=== PATIENT | male | born 1965 | race Caucasian/White ===

== ENCOUNTER 2017-12-27 16:57 | Inpatient (IN) | payer OTHER ==
[~2017-12-27] VITALS: Ht 172.7 cm; Wt 142.2 kg
[2017-12-27] VITALS (8 sets, daily range): BP systolic 117–139; BP diastolic 54–71; PULSE 88–97; RESP 22–30; TEMP 97.8–99.2; O2SAT 96–99
[2017-12-27] MEDS ORDERED: AMLO5TAB2 PO (18:52)
[2017-12-27] MEDS ORDERED: SPIR50TA PO (18:52)
[2017-12-27] MEDS ORDERED: JANT2.5T PO (18:52)
[2017-12-27] MEDS ORDERED: PANTOPRAZOLE SODIUM 40 MG VIAL IV PUSH ONE (19:15)
--- NOTE | 2017-12-27 19:21 | PD ---
HPI . Abdominal pain Chief Complaint: GI Complaint Time Seen by Provider: 19:05 Travel History International Travel<30 days: No Contact w/Intl Traveler<30days: No Traveled to known affect area: No History of Present Illness HPI pt is 52 year old male with liver disease from chronic etoh and he reports that in Jun 2017 he had a clot in the vein superior vein? possibly mesenteric vein , He is on coumadin and he is having pain and jaundice in sclera and facial , distended abdo and unknown if he has cirrhosis and possible ascites he reports vomiting blood clots today and asked his mother to take him to the hospital Nausea and vomit for 24 hrs , nothing taken to alleviate his Symptoms , pt was heavy drinker for years up until the episode in Jun 28 which lead to diagnosis of blood clot in Vein , Pt reports abstinence from etoh since jun .. Pt is awake alert and has nausea no diarrhea but he does have vomit, hematemesis . He has not seen another MD for this complaint . He is worried due to hematemesis and for this he decided to come to ER [facility] Past Medical History Blood Disorders: Yes (BLOOD CLOTS) Hypertension: Yes Medical other: Yes (LIVER DISEASE ) Tetanus Vaccination: > 5 Years Past Surgical History Thoracic Surgery: Yes (RIGHT KNEE SX ) Social History Alcohol Use: Yes (STOPPED JUN 2017) Tobacco Use: No Substance Use: No Allergies-Medications (Allergen,Severity, Reaction): Coded Allergies: No Known Allergies (Unverified , 12/27/17) Reported Meds & Prescriptions Reported Meds & Active Scripts Active Reported Jantoven (Warfarin) 2.5 Mg Tab 2.5 Mg PO DAILY Spironolactone 50 Mg Tab 50 Mg PO DAILY Amlodipine (Amlodipine Besylate) 5 Mg Tab 5 Mg PO DAILY Review of Systems Except as stated in HPI: all other systems reviewed are Neg Gastrointestinal: Positive: Nausea, Vomiting, Abdominal Pain, Hematemesis Musculoskeletal: Positive: Weakness Skin: Positive Change in Pigmentation (jaundice) Physical Exam Narrative GENERAL: pt is jaundice appearing and laying flat in bed he is Obese SKIN: Warm and dry. Yellow skin to face HEAD: Atraumatic. Normocephalic. EYES: Pupils equal and round. Positive for scleral icterus. No injection or drainage. ENT: No nasal bleeding or discharge. Mucous membranes pink and moist. NECK: Trachea midline. No JVD. CARDIOVASCULAR: Regular rate and rhythm. RESPIRATORY: No accessory muscle use. Clear to auscultation. Breath sounds equal bilaterally. GASTROINTESTINAL: Abdomen distended abdomen nontender obese versus possible ascites MUSCULOSKELETAL: Extremities without clubbing, cyanosis, or edema. No obvious deformities. NEUROLOGICAL: Awake and alert. No obvious cranial nerve deficits. Motor grossly within normal limits. Five out of 5 muscle strength in the arms and legs. Normal speech. PSYCHIATRIC: Appropriate mood and affect; insight and judgment normal. Data Data Last Documented VS Orders Orders Complete Blood Count With Diff (12/27/17:) Comprehensive Metabolic Panel (12/27/17:) Lipase (12/27/17:15) Ua Includes Microscopic (12/27/17:) Ammonia (12/27/17:) Type And Screen (12/27/17:) Alcohol (Ethanol) (12/27/17:) Prothrombin Time / Inr (Pt) (12/27/17:) Pantoprazole Inj (Protonix Inj) (12/27/17:) Ct Abd/Pel W Iv Contrast(Rout) (12/27/17 19:22) Fresh Frozen Plasma (Ffp) (12/27/17 20:31) Blood Product Administration (12/27/17 20:31) Sodium Chlor 0.9% 250 Ml Inj (Ns 250 Ml (12/27/17 20:45) Morphine Inj (Morphine Inj) (12/27/17 20:45) Red Blood Cells (Rbc) (12/27/17 20:44) Blood Product Administration (12/27/17 20:44) Sodium Chlor 0.9% 250 Ml Inj (Ns 250 Ml (12/27/17 20:45) Morphine Inj (Morphine Inj) (12/27/17 21:00) Octreotide Inj (Sandostatin Inj) (12/27/17 22:00) Pantoprazole Inj (Protonix Inj) (12/27/17 21:15) Sodium Chlor 0.9% 1000 Ml Inj (Ns 1000 M (12/27/17 21:15) Us Abdomen Gallbladder (12/27/17 ) Iohexol 350 Inj (Omnipaque 350 Inj) (12/27/17 21:12) Piperacil-Tazo 3.375 Gm Premix (Zosyn 3. (12/27/17 22:00) Thiamine Inj (Thiamine Inj) (12/28/17 09:00) Consult Gastroenterology (12/27/17 ) ^ Lab Follow Up (12/27/17 22:13) Phytonadione Inj (Vitamin K Inj) (12/27/17 22:15) Sodium Chlorid 0.9%... W/Octreotide Inj (12/27/17 22:14) Ceftriaxone Inj (Rocephin Inj) (12/27/17 23:00) Admit To Inpatient (12/27/17 ) Code Status (12/27/17 22:15) Vital Signs (Adult) ROSE.Q1H (12/27/17 22:15) Activity Bed Rest (12/27/17 22:15) Elevate Head Of Bed (12/27/17 22:15) Diet Npo (12/28/17 Breakfast) Sodium Chlor 0.9% 1000 Ml Inj (Ns 1000 M (12/27/17 22:15) Sodium Chloride 0.9% Flush (Ns Flush) (12/27/17 22:15) Sodium Chloride 0.9% Flush (Ns Flush) (12/28/17 09:00) Albuterol-Ipratropium Neb (Duoneb Neb) (12/27/17 22:15) Complete Blood Count With Diff (12/28/17 04:00) Comprehensive Metabolic Panel (12/28/17 04:00) Magnesium (Mg) (12/28/17 04:00) Director Risk / Telemetry ROSE.Q8H (12/27/17 22:15) Scd Bilateral/Knee High ROSE.BID (12/27/17 22:15) Wyatt Bilateral/Knee High ROSE.QSHIFT (12/27/17 10:30) ^ Initiate Protocol (12/27/17 22:15) Instruction (12/27/17 22:15) Nursing Information ([facility] Nursing Inform (12/27/17 22:15) Chlorhexidine 2% Cloth (Chlorhexidine 2% (12/28/17 04:00) Chlorhexidine 2% Cloth (Chlorhexidine 2% (12/27/17 22:15) Mrsa Pcr Surveillance (12/27/17 22:15) Inpatient Certification (12/27/17 ) Fresh Frozen Plasma (Ffp) (12/27/17 20:31) Admit Order (Ed Use Only) (12/27/17 22:22) Fresh Frozen Plasma (Ffp) (12/27/17 20:31) Labs Laboratory Tests Test 12/27/17 19:45 12/27/17 22:00 White Blood Count 13.6 TH/MM3 Red Blood Count 3.19 MIL/MM3 Hemoglobin 8.1 GM/DL Hematocrit 25.1 % Mean Corpuscular Volume 78.7 FL Mean Corpuscular Hemoglobin 25.3 PG Mean Corpuscular Hemoglobin Concent 32.2 % Red Cell Distribution Width 24.4 % Platelet Count 349 TH/MM3 Mean Platelet Volume 8.4 FL CBC Comment AUTO DIFF Differential Total Cells Counted 100 Neutrophils % (Manual) 62 % Band Neutrophils % 10 % Lymphocytes % 7 % Monocytes % 13 % Eosinophils % 3 % Basophils % 5 % Neutrophils # (Manual) 9.8 TH/MM3 Differential Comment FINAL DIFF MANUAL Platelet Estimate NORMAL Platelet Morphology Comment ENLARGED Target Cells 1+ Ovalocytes 1+ Prothrombin Time 156.1 SEC Prothromb Time International Ratio 15.7 RATIO Blood Urea Nitrogen 9 MG/DL Creatinine 0.91 MG/DL Random Glucose 101 MG/DL Total Protein 7.0 GM/DL Albumin 2.8 GM/DL Calcium Level 7.9 MG/DL Alkaline Phosphatase 171 U/L Aspartate Amino Transf (AST/SGOT) 439 U/L Alanine Aminotransferase (ALT/SGPT) 115 U/L Total Bilirubin 7.6 MG/DL Sodium Level 119 MEQ/L Potassium Level 3.5 MEQ/L Chloride Level 82 MEQ/L Carbon Dioxide Level 21.1 MEQ/L Anion Gap 16 MEQ/L Estimat Glomerular Filtration Rate 88 ML/MIN Ammonia 17 MCMOL/L Lipase 447 U/L Ethyl Alcohol Level 135 MG/DL Urine Color YELLOW Urine Turbidity CLEAR Urine pH 5.5 Urine Specific [place] 1.030 Urine Protein TRACE mg/dL Urine Glucose (UA) NEG mg/dL Urine Ketones NEG mg/dL Urine Occult Blood NEG Urine Nitrite NEG Urine Bilirubin SMALL Urine Urobilinogen LESS THAN 2.0 MG/DL Urine Leukocyte Esterase NEG Urine WBC 4 /hpf Urine Squamous Epithelial Cells <1 /hpf Urine Bacteria RARE /hpf MDM Medical Decision Making Medical Screen Exam Complete: Yes Emergency Medical Condition: Yes Medical Record Reviewed: Yes Differential Diagnosis Differential diagnosis includes alcohol induced cirrhosis versus liver failure with ascites versus acute cholecystitis versus obstructing gallstone versus ascending cholangitis versus other causes of bilirubin spilling as well as hyponatremia over anticoagulation due to Coumadin combined with liver failure other Narrative Course His INR is 15 need correction emergently FFP and his sodium is 119 needs correction emergently ...he is given 2 Units of FFP to correct his anticoagulation . he is given vitamin K 10 . he is given packed red blood cells for his severe anemia ...he is given sodium normal saline to replace his sodium and I review all his labs his CT for liver ascites and cirrhosis likely and liver failure on Coumadin , he is admitted to ICU Dr. Aviles will take care in the ICU Critical Care Narrative Critical care time is 45 minutes of medical critical care on this patient Physician Communication Physician Communication Dr Aviles ICU Diagnosis Primary Impression: Acute renal failure Qualified Codes: N17.9 - Acute kidney failure, unspecified Additional Impressions: Alcoholic cirrhosis Qualified Codes: K70.31 - Alcoholic cirrhosis of liver with ascites Early alcohol withdrawal Ascites Qualified Codes: K70.31 - Alcoholic cirrhosis of liver with ascites Hyponatremia Probable sepsis Abnormal INR Admitting Information Admitting Physician Requests: Admit Kalyan Law MD December 27, 2017 19:21
[2017-12-27 20:18] LABS: ALBUMIN 2.8 GM/DL (3.4-5.0); ALT (GPT) 115 U/L (12-78); AST (GOT) 439 U/L (15-37); BICARBONATE 21.1 MEQ/L (21.0-32.0); BLOOD UREA NITROGEN 9 MG/DL (7-18); CALCIUM 7.9 MG/DL (8.5-10.1); CHLORIDE 82 MEQ/L (98-107); CREATININE 0.91 MG/DL (0.60-1.30); GLOMERULAR FILTRATION RATE 88 ML/MIN (>89); GLUCOSE,RANDOM 101 MG/DL (74-106)
[2017-12-27 20:24] LABS: PROTHROMBIN TIME - PATIENT 156.1 SEC (9.8-11.6)
[2017-12-27 20:31] LABS: INTERNATIONAL NORMALIZED RATIO 15.7 RATIO
[2017-12-27 20:33] LABS: ALKALINE PHOSPHATASE 171 U/L (45-117); TOTAL BILIRUBIN ADULT 7.6 MG/DL (0.2-1.0)
[2017-12-27 20:36] LABS: SODIUM (NA) 119 MEQ/L (136-145)
[2017-12-27 20:41] LABS: HEMATOCRIT 25.1 % (39.0-51.0); HEMOGLOBIN 8.1 GM/DL (13.0-17.0); MEAN CELL VOLUME 78.7 FL (80.0-100.0); MEAN CORPUSCULAR HEMOGLOBIN 25.3 PG (27.0-34.0); MEAN CORPUSCULAR HGB CONC 32.2 % (32.0-36.0); MEAN PLATELET VOLUME 8.4 FL (7.0-11.0); PLATELET COUNT 349 TH/MM3 (150-450); RED BLOOD COUNT 3.19 MIL/MM3 (4.50-5.90); RED CELL DISTRIBUTION WIDTH 24.4 % (11.6-17.2); WHITE BLOOD COUNT 13.6 TH/MM3 (4.0-11.0)
[2017-12-27] MEDS ORDERED: MORPHINE SULFATE 2 MG/ML SYRINGE IV PUSH ONE (20:45)
[2017-12-27] MEDS ORDERED: SODIUM CHLOR 0.9% 250 ML INJ 250 ML IV ONE ×2 (20:45)
[2017-12-27] MEDS ORDERED: MORPHINE SULFATE 4 MG/ML INJ IV PUSH ONE (21:00)
[2017-12-27] MEDS ORDERED: IOHEXOL 350 MG/ML 10 ML VIAL (for RAD DIAG) IVCONTRAST ONE (21:12)
[2017-12-27] MEDS: SODIUM CHLOR 0.9% 1000 ML INJ 1,000 ML IV SCH (21:15)
[2017-12-27] MEDS ORDERED: OCTREOTIDE INJ 50 MCG/ML AMP IV PUSH SCH (22:00)
[2017-12-27] MEDS ORDERED: PIPERACIL-TAZO 3.375 GM PREMIX 50 ML IV ONE (22:00)
[2017-12-27 22:02] LABS: BANDS 10 % (0-6); BASOPHILS 5 % (0-2); LYMPHOCYTES 7 % (9-44); MONOCYTES 13 % (0-8); NEUTROPHIL # MANUAL DIFF 9.8 TH/MM3 (1.8-7.7); POLYS (SEG NEUTROPHILS) 62 % (16-70)
[2017-12-27 22:03] LABS: OVALOCYTES 1+ (NORMAL); TARGET CELLS 1+ (NORMAL)
--- NOTE | 2017-12-27 22:07 | RADRPT ---
EXAM DATE/TIME: 12/27/2017 21:00 [facility] COMPARISON: No previous studies available for comparison. INDICATIONS : Abdominal pain. IV CONTRAST: 100 cc Omnipaque 350 (iohexol) IV ORAL CONTRAST: No oral contrast ingested. RADIATION DOSE: 30.88 CTDIvol (mGy) ; Patient body habitus MEDICAL HISTORY : Hypertension. Liver disease. SURGICAL HISTORY : None. ENCOUNTER: Initial ACUITY: 1 day PAIN SCALE: 5/10 LOCATION: abdomen TECHNIQUE: Volumetric scanning of the abdomen and pelvis was performed. Using automated exposure control and ad justment of the mA and/or kV according to patient size, radiation dose was kept as low as reasonably achievable to obtain optimal diagnostic quality images. DICOM format image data is available electro nically for review and comparison. FINDINGS: LOWER LUNGS: There is a mild right pleural effusion. There is some accompanying atelectasis or consolidation at th e right lung base. LIVER: The liver is diffusely abnormal with decrease density and heterogeneity. There is hypertrophy of the left lobe and caudate. Calcified gallstones are present. There is a moderate amount of ascites seen t hroughout the peritoneal cavity. SPLEEN: The spleen is diffusely enlarged measuring 15 cm in length. No focal splenic lesion is seen. PANCREAS: Within normal limits. KIDNEYS: Normal in size and shape. There is no mass, stone or hydronephrosis. ADRENAL GLANDS: Within normal limits. VASCULAR: There is no aortic aneurysm. BOWEL/MESENTERY: The stomach, small bowel, and colon demonstrate no acute abnormality. There is no free intraperitone al air or fluid. ABDOMINAL WALL: Within normal limits. RETROPERITONEUM: There is no lymphadenopathy. BLADDER: No wall thickening or mass. REPRODUCTIVE: Within normal limits. INGUINAL: There is no lymphadenopathy or hernia. MUSCULOSKELETAL: Within normal limits for patient age. CONCLUSION: 1. Diffusely abnormal liver likely secondary to hepatic steatosis and possible changes of cirrhosis. 2. Splenomegaly. This could be secondary to portal hypertension. 3. Moderate ascites. 4. Calcified gallstone. Stefan Grier MD on December 27, 2017 at 22:02 Board Certified Radiologist. This report was verified electronically.
[2017-12-27] MEDS: PANTOPRAZOLE INJ 80 MG in SODIUM CHLORIDE 0.9% INJ 100 ML IV SCH (22:13)
--- NOTE | 2017-12-27 22:13 | RADRPT ---
EXAM DATE/TIME: 12/27/2017 21:16 [facility] COMPARISON: CT ABDOMEN & PELVIS W CONTRAST, December 27, 2017, 21:00. INDICATIONS : Right upper quadrant pain. MEDICAL HISTORY : Hypertension. Cirrhosis. Blood clots. SURGICAL HISTORY : Right knee surgery. ENCOUNTER: Initial ACUITY: 4-6 months PAIN SCORE: 7/10 LOCATION: Right upper quadrant MEASUREMENTS: LIVER: 20.3 cm length COMMON DUCT: Non-visualized RIGHT KIDNEY: 11.6 x 5.4 x 6.6 cm FINDINGS: LIVER: The liver is enlarged and heterogeneous and echogenic. There is ascites seen. COMMON DUCT: No intraluminal mass or stone visualized. GALLBLADDER: The gallbladder wall is thickened. Gallstones are not seen on the ultrasound. However, calcified gall stones are clearly present on the CT examination. PANCREAS: The pancreas is obscured by bowel gas. RIGHT KIDNEY: No evidence of hydronephrosis, stone, or mass. CONCLUSION: 1. Diffusely abnormal liver secondary to cirrhosis and hepatic steatosis. 2. Gallbladder wall thickening. This is nonspecific. This can be seen with hepatic disease. It also c an be seen with cholecystitis in the correct clinical situation. Gallstones were not demonstrated on the ultrasound examination but are clearly present on the CT examination. Stefan Grier MD on December 27, 2017 at 22:08 Board Certified Radiologist. This report was verified electronically.
[2017-12-27] MEDS ORDERED: CHLORHEXIDINE GLUCONATE 2 % 1 PACK (2 CLOTHS) TOP PRN (22:15)
[2017-12-27] MEDS ORDERED: RESP: ALBUTEROL 2.5 MG/IPRATROPIUM 0.5 MG NEB (PRN) INH (22:15)
[2017-12-27] MEDS ORDERED: NURSING INFORMATION XX SCH (22:15)
[2017-12-27] MEDS ORDERED: PHYTONADIONE INJ 10 MG in SODIUM CHLORIDE 0.9% INJ 50 ML IV ONE (22:15)
[2017-12-27 22:28] LABS: BACTERIA, URINE RARE /hpf; BILIRUBIN, URINE SMALL (NEG); BLOOD, URINE NEG (NEG); GLUCOSE,URINE NEG (NEG); KETONE, URINE NEG (NEG); NITRITE,URINE NEG (NEG); PH, URINE 5.5 (5.0-8.5); SQUAMOUS EPITHELIAL CELL URINE <1 /hpf (0-5); URINE COLOR YELLOW (YELLW/STRAW); URINE LEUKOCYTE ESTERASE NEG (NEG)
[2017-12-27] MEDS ORDERED: FLUMAZENIL 0.5 MG/5 ML VIAL IV PUSH PRN (23:30)
[2017-12-27] MEDS ORDERED: LORazepam 1 MG TAB PO PRN (23:30)
[2017-12-27] MEDS ORDERED: LORazepam 2 MG TAB PO PRN (23:30)
[2017-12-27] MEDS ORDERED: LORazepam 2 MG/ML VIAL IV PUSH PRN ×3 (23:30)
--- NOTE | 2017-12-27 23:32 | HHI.HP ---
[facility] Service Critical Care Medicine Primary Care Physician No Primary Care Physician Admission Diagnosis liver failure overanticoagulation , hyponatremia Diagnosis: (1) Upper GI bleed Diagnosis: Principal (2) Anemia requiring transfusions Diagnosis: Principal (3) Coagulopathy Diagnosis: Principal (4) Probable sepsis Diagnosis: Principal (5) Hyponatremia Diagnosis: Principal (6) Ascites Diagnosis: Principal (7) Possible SBP Diagnosis: Principal (8) Hyperbilirubinemia Diagnosis: Principal (9) Transaminitis Diagnosis: Principal (10) Alcohol intoxication Diagnosis: Principal (11) Early alcohol withdrawal Diagnosis: Principal (12) Alcoholic cirrhosis Diagnosis: Secondary (13) Splenomegaly Diagnosis: Secondary Chief Complaint: Increasing jaundice Upper GI bleed Travel History International Travel<30 Days: No Contact w/Intl Traveler <30 Da: No Traveled to Known Affected Are: No Sepsis Criteria SIRS Criteria (2 or more): Heart rate over 90, WBC > 87258, < 4000 or > 10% bands Sepsis Criteria (SIRS+source): Infect source susp/known Criteria Outcome: Meets sepsis criteria History of Present Illness Patient is a 52-year-old male with history of alcohol dependence, on chronic Coumadin for "abdominal vein thrombosis", history of hypertension who presented to the emergency department with complaints of increasing jaundice, increasing abdominal girth and vomiting jade blood multiple times over the last 2 days. Patient admits to being a heavy drinker he drinks about 1.75 L bottle hard liquor every 2 days. ER workup showed patient had a hemoglobin of 8.1, INR was 15.7. PTT 156.1, white count of 13.6 with 10% bands. Also sodium was noted to be 119, AST 439 ALT 115 and bilirubin of 7.6. A stat CT abdomen pelvis showed moderate ascites, probable cirrhosis and hepatic steatosis, splenomegaly, and gallstones. Patient had been ordered to receive 2 units of PRBC, and total 4 units of FFP. INR, Hb will be rechecked after this and additional FFP will be given accordingly. 10 mg vitamin K also ordered. Unfortunately hospital is out of [facility]. I evaluated the patient in the emergency department. He initially had an alcohol level of 135. At the time of my exam he is in moderate distress appears to be slightly tremulous. I have initiated CIWA protocol. I will also start its Rocephin for SBP prophylaxis. Patient had been started on IV Protonix infusion and octreotide which will be continued. Patient clinically also appears to have at least moderate ascites but I am unable to perform paracentesis due to elevated INR. Review of Systems ROS Limitations: Other (as per HPI) Past Family Social History Allergies: Coded Allergies: No Known Allergies (Unverified , 12/27/17) Past Medical History Alcohol dependence Probable liver cirrhosis Chronic Coumadin for "abdominal vein thrombosis" Hypertension Past Surgical History History of right knee surgery Reported Medications Jantoven (Warfarin) 2.5 Mg Tab 2.5 Mg PO DAILY Spironolactone 50 Mg Tab 50 Mg PO DAILY Amlodipine (Amlodipine Besylate) 5 Mg Tab 5 Mg PO DAILY Active Ordered Medications Reviewed. Family History Not contributing to this admission Social History He admits to drinking about 1.75 L hard liquor every 2 days Denies smoking or any other drug use Physical Exam Vital Signs Vital Signs Date Time Temp Pulse Resp B/P (MAP) Pulse Ox O2 Delivery O2 Flow Rate FiO2 12/27/17 22:52 99.0 91 26 121/57 96 12/27/17 18:44 25 12/27/17 17:08 97.8 93 22 117/60 (79) 97 Physical Exam GENERAL: 52[facility] slightly tremulous moderate distress SKIN: Warm and dry. Jaundiced HEAD: Atraumatic. Normocephalic. EYES: Pupils equal and round. Positive for scleral icterus. ENT: No nasal bleeding or discharge. Mucous membranes dry NECK: Trachea midline. No JVD. CARDIOVASCULAR: Regular rate and rhythm. RESPIRATORY: Clear to auscultation. Breath sounds equal bilaterally. GASTROINTESTINAL: Abdomen distended abdomen nontender obese. Fluid thrill present MUSCULOSKELETAL: Extremities without clubbing, cyanosis. 1+ pitting edema NEUROLOGICAL: Awake and alert. No obvious cranial nerve deficits. Motor grossly within normal limits. Slightly tremulous Laboratory Laboratory Tests Test 12/27/17 19:45 12/27/17 22:00 White Blood Count 13.6 Red Blood Count 3.19 Hemoglobin 8.1 Hematocrit 25.1 Mean Corpuscular Volume 78.7 Mean Corpuscular Hemoglobin 25.3 Mean Corpuscular Hemoglobin Concent 32.2 Red Cell Distribution Width 24.4 Platelet Count 349 Mean Platelet Volume 8.4 CBC Comment AUTO DIFF Differential Total Cells Counted 100 Neutrophils % (Manual) 62 Band Neutrophils % 10 Lymphocytes % 7 Monocytes % 13 Eosinophils % 3 Basophils % 5 Neutrophils # (Manual) 9.8 Differential Comment FINAL DIFF MANUAL Platelet Estimate NORMAL Platelet Morphology Comment ENLARGED Target Cells 1+ Ovalocytes 1+ Prothrombin Time 156.1 Prothromb Time International Ratio 15.7 Blood Urea Nitrogen 9 Creatinine 0.91 Random Glucose 101 Total Protein 7.0 Albumin 2.8 Calcium Level 7.9 Alkaline Phosphatase 171 Aspartate Amino Transf (AST/SGOT) 439 Alanine Aminotransferase (ALT/SGPT) 115 Total Bilirubin 7.6 Sodium Level 119 Potassium Level 3.5 Chloride Level 82 Carbon Dioxide Level 21.1 Anion Gap 16 Estimat Glomerular Filtration Rate 88 Ammonia 17 Lipase 447 Ethyl Alcohol Level 135 Urine Color YELLOW Urine Turbidity CLEAR Urine pH 5.5 Urine Specific [place] 1.030 Urine Protein TRACE Urine Glucose (UA) NEG Urine Ketones NEG Urine Occult Blood NEG Urine Nitrite NEG Urine Bilirubin SMALL Urine Urobilinogen LESS THAN 2.0 Urine Leukocyte Esterase NEG Urine WBC 4 Urine Squamous Epithelial Cells <1 Urine Bacteria RARE Result Diagram: 12/27/17194412/27/171944 Imaging CT abdomen pelvis shows hepatic steatosis, probable liver cirrhosis, splenomegaly, moderate ascites and gallstones Septic Shock Reassessment Septic shock perfusion: reassessment completed Caprini VTE Risk Assessment Caprini VTE Risk Assessment: Mod/High Risk (score >= 2) VTE Pharm Contraindication: Coagulopathy,INR elevated Caprini Risk Assessment Model Point Value = 1 Point Value = 2 Point Value = 3 Point Value = 5 Age 41-60 Minor surgery BMI > 25 kg/m2 Swollen legs Varicose veins or History of unexplained or recurrent spontaneous Oral contraceptives or hormone replacement Sepsis (< 1 month) Serious lung disease, including pneumonia (< 1 month) Abnormal pulmonary function Acute myocardial infarction Congestive heart failure (< 1 month) History of inflammatory bowel disease Medical patient at bed rest Age 61-74 Arthroscopic surgery Major open surgery (> 45 min) Laparoscopic surgery (> 45 min) Malignancy Confined to bed (> 72 hours) Immobilizing plaster cast Central venous access Age >= 75 History of VTE Family history of VTE Factor V Leiden Prothrombin [id number] Lupus anticoagulant Anticardiolipin antibodies Elevated serum homocysteine Heparin-induced thrombocytopenia Other congenital or acquired thrombophilia Stroke (< 1 month) Elective arthroplasty Hip, pelvis, or leg fracture Acute spinal cord injury (< 1 month) Prophylaxis Regimen Total Risk Factor Score Risk Level Prophylaxis Regimen 0-1 Low Early ambulation 2 Moderate Order ONE of the following: *Sequential Compression Device (SCD) *Heparin 5000 units SQ BID 3-4 Higher Order ONE of the following medications: *Heparin 5000 units SQ TID *Enoxaparin/Lovenox 40 mg SQ daily (WT < 150 kg, CrCl > 30 mL/min) *Enoxaparin/Lovenox 30 mg SQ daily (WT < 150 kg, CrCl > 10-29 mL/min) *Enoxaparin/Lovenox 30 mg SQ BID (WT < 150 kg, CrCl > 30 mL/min) AND/OR *Sequential Compression Device (SCD) 5 or more Highest Order ONE of the following medications: *Heparin 5000 units SQ TID (Preferred with Epidurals) *Enoxaparin/Lovenox 40 mg SQ daily (WT < 150 kg, CrCl > 30 mL/min) *Enoxaparin/Lovenox 30 mg SQ daily (WT < 150 kg, CrCl > 10-29 mL/min) *Enoxaparin/Lovenox 30 mg SQ BID (WT < 150 kg, CrCl > 30 mL/min) AND *Sequential Compression Device (SCD) Assessment and Plan Assessment and Plan NEURO: Early alcohol withdrawal Alcohol dependence -Initiate CIWA protocol -Supplement thiamine, MVI RESP: -Nasal cannula oxygen to keep O2 sat >90% -DuoNeb every 6 hours as needed -Aggressive pulmonary toilet CV: History of hypertension -Normal saline IV fluids at 84 ml per hour -Hold Norvasc due to GI bleed GI: Upper GI bleed Ascites Liver cirrhosis -Continue Protonix infusion, octreotide infusion -Rocephin for SBP prophylaxis -Keep n.p.o., GI consult -Plan for paracentesis after the INR is corrected /Endo: Hypochloremic hyponatremia -Monitor renal function closely. Careful hydration with normal saline at 84 mL/ h -Sodium every 6 hours to avoid overcorrection. -Normal saline 1 L bolus ID: Probable sepsis Possible SBP -Start Rocephin for SBP prophylaxis -Send blood cultures, ascites fluid studies once INR is corrected HEME: Anemia requiring transfusion Severe coagulopathy -Transfuse 2 units PRBC, 4 units of FFP -Serially monitor INR, vitamin K 10 mg given IV -Hospital is out of [facility] at this time -Monitor CBC, CMP, coags PROPH: -Bilateral lower extremity SCDs. IV Protonix infusion. Chemical DVT prophylaxis is contraindicated at this time LINES: -Utilize peripheral IVs, central line if needed CC time 62 min Code Status Full Discussed Condition With Dr. Law Problem Qualifiers (1) Ascites: Qualified Codes: K70.31 - Alcoholic cirrhosis of liver with ascites Chelsie Aviles MD December 27, 2017 23:32
[2017-12-28] VITALS (23 sets, daily range): BP systolic 129–171; BP diastolic 65–76; PULSE 84–107; RESP 15–32; TEMP 98.4–100.8; O2SAT 93–100
[2017-12-28] MEDS ORDERED: SODIUM CHLOR 0.9% 1000 ML INJ 1,000 ML IV ONE
[2017-12-28] MEDS: cefTRIAXone INJ 1,000 MG in SODIUM CHLORIDE 0.9% INJ 100 ML IV SCH ×2 (00:43→21:49)
[2017-12-28] MEDS: SODIUM CHLOR 0.9% 1000 ML INJ 1,000 ML IV SCH ×4 (00:46→12:06)
[2017-12-28] MEDS: OCTREOTIDE INJ 500 MCG in SODIUM CHLORID 0.9% 500 ML INJ 499.5 ML IV SCH ×2 (00:46→17:07)
[2017-12-28] MEDS ORDERED: MORPHINE SULFATE 2 MG/ML SYRINGE IV PRN (01:00)
[2017-12-28] MEDS: MORPHINE SULFATE 4 MG/ML INJ IV PRN ×3 (01:28→08:06)
[2017-12-28] MEDS: CHLORHEXIDINE GLUCONATE 2 % 1 PACK (2 CLOTHS) TOP SCH (04:20)
[2017-12-28] MEDS: PANTOPRAZOLE INJ 80 MG in SODIUM CHLORIDE 0.9% INJ 100 ML IV SCH ×2 (05:28→16:00)
[2017-12-28 07:23] LABS: INTERNATIONAL NORMALIZED RATIO 2.2 RATIO
[2017-12-28 07:25] LABS: AUTOMATED NEUTROPHIL # 6.6 TH/MM3 (1.8-7.7); BASOPHIL # 0.1 TH/MM3 (0-0.2); EOSINOPHIL # 0.2 TH/MM3 (0-0.4); EOSINOPHIL % 1.7 % (0.0-4.0); HEMATOCRIT 25.9 % (39.0-51.0); HEMOGLOBIN 8.6 GM/DL (13.0-17.0); LYMPH % 28.9 % (9.0-44.0); LYMPHOCYTE # 3.2 TH/MM3 (1.0-4.8); MEAN CELL VOLUME 80.2 FL (80.0-100.0); MEAN CORPUSCULAR HEMOGLOBIN 26.6 PG (27.0-34.0); MEAN CORPUSCULAR HGB CONC 33.1 % (32.0-36.0); MEAN PLATELET VOLUME 8.6 FL (7.0-11.0); NEUT % 59.4 % (16.0-70.0); PLATELET COUNT 266 TH/MM3 (150-450); RED BLOOD COUNT 3.22 MIL/MM3 (4.50-5.90); RED CELL DISTRIBUTION WIDTH 22.9 % (11.6-17.2)
[2017-12-28 07:30] LABS: PROTHROMBIN TIME - PATIENT 22.2 SEC (9.8-11.6)
[2017-12-28 07:44] LABS: ALKALINE PHOSPHATASE 144 U/L (45-117); TOTAL BILIRUBIN ADULT 8.4 MG/DL (0.2-1.0); TOTAL PROTEIN 6.8 GM/DL (6.4-8.2)
[2017-12-28 07:51] LABS: ALBUMIN 2.7 GM/DL (3.4-5.0); ALT (GPT) 91 U/L (12-78); AST (GOT) 324 U/L (15-37); BICARBONATE 23.8 MEQ/L (21.0-32.0); BLOOD UREA NITROGEN 10 MG/DL (7-18); CALCIUM 7.6 MG/DL (8.5-10.1); CHLORIDE 87 MEQ/L (98-107); CREATININE 0.94 MG/DL (0.60-1.30); GLOMERULAR FILTRATION RATE 85 ML/MIN (>89); GLUCOSE,RANDOM 88 MG/DL (74-106); MAGNESIUM 2.3 MG/DL (1.5-2.5); SODIUM (NA) 125 MEQ/L (136-145)
--- NOTE | 2017-12-28 08:02 | HHI.CCPN ---
Subjective Remarks/Hospital Course Patient is a 52-year-old male with history of alcohol dependence, on chronic Coumadin for "abdominal vein thrombosis", history of hypertension who presented to the emergency department with complaints of increasing jaundice, increasing abdominal girth and vomiting jade blood multiple times over the last 2 days. Patient admits to being a heavy drinker he drinks about 1.75 L bottle hard liquor every 2 days. ER workup showed patient had a hemoglobin of 8.1, INR was 15.7. PTT 156.1, white count of 13.6 with 10% bands. Also sodium was noted to be 119, AST 439 ALT 115 and bilirubin of 7.6. A stat CT abdomen pelvis showed moderate ascites, probable cirrhosis and hepatic steatosis, splenomegaly, and gallstones. Patient had been ordered to receive 2 units of PRBC, and total 4 units of FFP. INR, Hb will be rechecked after this and additional FFP will be given accordingly. 10 mg vitamin K also ordered. Unfortunately hospital is out of [facility]. I evaluated the patient in the emergency department. He initially had an alcohol level of 135. At the time of my exam he is in moderate distress appears to be slightly tremulous. I have initiated CIWA protocol. I will also start its Rocephin for SBP prophylaxis. Patient had been started on IV Protonix infusion and octreotide which will be continued. Patient clinically also appears to have at least moderate ascites but I am unable to perform paracentesis due to elevated INR. SUBJECTIVE: 12/28: Currently resting in bed complaining of abdominal pain. Short of breath and tachypnea. Complaining of nausea currently. Remains on nasal cannula. Patient does not desire his mother's to have knowledge about his alcohol use. Objective Vital Signs Date Time Temp Pulse Resp B/P (MAP) Pulse Ox O2 Delivery O2 Flow Rate FiO2 12/28/17 07:40 95 Nasal Cannula 2.00 12/28/17 06:00 98 12/28/17 04:00 98.4 30 169/74 (105) Intake and Output 12/28/17 12/28/17 12/29/17 08:00 16:00 00:00 Intake Total 1837 ml Balance 1837 ml Result Diagram: 12/28/17 0615 12/28/17 0615 Other Results Microbiology Date/Time Source Procedure Growth Status 12/28/17 06:15 Blood Peripheral Aerobic Blood Culture Pending Received 12/28/17 06:15 Blood Peripheral Anaerobic Blood Culture Pending Received Imaging Last Impressions Abdomen/Pelvis CT 12/27/17 1922 Signed Impressions: Service Date/Time: Wednesday, December 27, 2017 21:00 - CONCLUSION: 1. Diffusely abnormal liver likely secondary to hepatic steatosis and possible changes of cirrhosis. 2. Splenomegaly. This could be secondary to portal hypertension. 3. Moderate ascites. 4. Calcified gallstone. Stefan Grier MD Gall Bladder Ultrasound 12/27/17 0000 Signed Impressions: Service Date/Time: Wednesday, December 27, 2017 21:16 - CONCLUSION: 1. Diffusely abnormal liver secondary to cirrhosis and hepatic steatosis. 2. Gallbladder wall thickening. This is nonspecific. This can be seen with hepatic disease. It also can be seen with cholecystitis in the correct clinical situation. Gallstones were not demonstrated on the ultrasound examination but are clearly present on the CT examination. Stefan Grier MD Objective Remarks GENERAL: 52-year-old male lying in bed in mild respiratory distress SKIN: Warm and dry. Jaundiced HEAD: Atraumatic. Normocephalic. EYES: Pupils equal and round about 3 mm bilaterally to 2 mm. Positive for scleral icterus. ENT: No nasal bleeding or discharge. Mucous membranes dry and pink. Oropharynx without erythema or exudate NECK: Trachea midline. No JVD. CARDIOVASCULAR: Regular rate and rhythm. S1, S2. No S4. Without murmur RESPIRATORY: Clear to auscultation. Breath sounds equal bilaterally. GASTROINTESTINAL: Abdomen distended abdomen nontender obese. Positive succussion splash MUSCULOSKELETAL: Extremities -bilateral lower extreme 1+ pitting edema NEUROLOGICAL: Awake and alert. No obvious cranial nerve deficits. Motor grossly within normal limits. Slightly tremulous Urinary Catheter: No Assessment to: Continue Vascular Central Line Catheter: No Assessment to: Continue A/P Assessment and Plan NEURO/PSYCH: Early alcohol withdrawal Alcohol dependence -Initiate CIWA protocol with Lorazepam -Supplement thiamine, folic acid and MVI with vitamin bag 3 days and switch to IV thiamine on 12/31 Morphine sulfate 2-4 mg IV every 3 hours as needed pain Alcohol cessation encouraged RESP: -Nasal cannula oxygen to keep O2 sat >92% -Incentive spirometry while awake Albuterol/ipratropium aerosols every 6 hours while awake with albuterol aerosols every 2 hours as needed dyspnea -Aggressive pulmonary toilet CV: History of hypertension -Normal saline IV fluids at 125 ml per hour. Decreased to 75 cc an hour while on pantoprazole and octreotide drips -Hold amlodipine 5 mg due to GI bleed and Spironolactone 50 mg p.o. daily As needed labetalol, Nitropaste and nicardipine drip to maintain systolic blood pressure less than 170 GI: Upper GI bleed Ascites/abdominal Liver cirrhosis/hepatic steatosis Cholelithiasis Elevated transaminases Elevated lipase -Continue pantoprazole infusion at 8 mg an hour, octreotide infusion at 25 mch/ hr -Ceftriaxone for SBP prophylaxis/urinary tract -Keep n.p.o., GI consult -Plan for paracentesis per Dr. Chelsie Aviles after the INR is corrected CT abdomen/pelvis revealed no sequelae of pancreatitis. FEN//Endo: Hypochloremic hyponatremia -Monitor renal function closely. Careful hydration with normal saline at 75 mL/ h Check osm serum/urine, TSH, uric acid and cortisol level -Sodium every 6 hours to avoid overcorrection. -Normal saline 1 L bolus in ED by overnight advertising display rotator. 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 Recheck hemoglobin at 8 PM MSK: Elevated BMI greater than 30 Weight loss encouraged PT evaluate and treat PROPH: -Bilateral lower extremity SCDs. IV pantoprazole infusion. Chemical DVT prophylaxis is contraindicated at this time LINES: -Utilize peripheral IVs, central line if needed Level 2 follow-up Constantine Alvarado MD December 28, 2017 08:02
[2017-12-28] MEDS: SODIUM CHLORIDE 0.9% FLUSH 10 ML FLUSH IV FLUSH SCH ×2 (08:06→19:20)
[2017-12-28] MEDS: MULTIVITAMIN INJ 10 ML, THIAMINE INJ 100 MG, FOLIC ACID INJ 1 MG in SODIUM CHLORID 0.9%... IV SCH (08:07)
[2017-12-28] MEDS ORDERED: PROCHLORPERAZINE INJ 10 MG/2 ML VIAL IV PUSH PRN (08:15)
[2017-12-28] MEDS ORDERED: niCARdipine INJ 25 MG in SODIUM CHLOR 0.9% 250 ML INJ 250 ML IV PRN (08:15)
[2017-12-28] MEDS ORDERED: NITROGLYCERIN 2% OINT 1 GM PACKET TOPICAL PRN (08:15)
[2017-12-28] MEDS ORDERED: MORPHINE SULFATE 4 MG/ML INJ IV PUSH PRN (08:15)
[2017-12-28] MEDS ORDERED: RESP: ALBUTEROL 2.5 MG/3 ML NEB (PRN) NEB (08:15)
[2017-12-28] MEDS ORDERED: LABETALOL HCL 100 MG/20 ML VIAL IV PUSH PRN (08:15)
[2017-12-28] MEDS ORDERED: THIAMINE INJ 100 MG in SODIUM CHLORIDE 0.9% INJ 100 ML IV SCH (09:00)
--- NOTE | 2017-12-28 09:29 | PD.CONS ---
HPI History of Present Illness This is a 52 year old M with PMH significant for HTN, SMV thrombosis in June on Coumadin, ETOH abuse and likely cirrhosis. History is limited due to patient dry heaving during my exam. Pt presented to the ER yesterday with complaints of abdominal swelling, jaundice, and nausea and vomiting. Pt reports he has noticed the abdominal swelling for the past month. The jaundice has been more recent over the past 3-4 days. States the nausea and vomiting has been going on for the last two days, reports hematemesis. Pt was seen by our service during his last hospitalization at [facility] in June, states he stopped drinking alcohol for two weeks after he was discharged and is back to drinking heavily again. Goes through a 1.75 liter of vodka every 2 to three days. Pt states he has not followed up with a GI doctor, he currently doesn't have insurance and has been seen and the [facility], he was supposed to be seeing a GI doctor at that clinic this Saturday. Pt denies previous EGD or colonoscopy. (Sandra Fernandes) PFSH Past Medical History ETOH abuse Cirrhosis SMV thrombosis Past Surgical History R knee (Sandra Fernandes) Coded Allergies: No Known Allergies (Unverified , 12/27/17) Social History Drinks ETOH daily- 1.75 liter of vodka every 2-3 days (Sandra Fernandes) Review of Systems Gastrointestinal: COMPLAINS OF: Abdominal pain, Nausea, Vomiting, Swelling of Abdomen, Hematemesis, DENIES: Black stools, Bloody stools, Constipation, Diarrhea, Difficulty Swallowing, Odynophagia, Heartburn (Sandra Fernandes) GI Exam Vitals I&O Vital Signs Date Time Temp Pulse Resp B/P (MAP) Pulse Ox O2 Delivery O2 Flow Rate FiO2 12/28/17 09:01 22 12/28/17 07:40 95 Nasal Cannula 2.00 12/28/17 06:00 98 12/28/17 04:00 98.4 100 30 169/74 (105) 96 12/28/17 04:00 100 12/28/17 02:30 99.1 102 28 152/69 98 12/28/17 02:00 97 12/28/17 00:30 99.1 100 30 151/72 (98) 98 12/28/17 00:00 99.2 98 32 139/68 (91) 96 Nasal Cannula 2.00 12/27/17 23:41 97 Nasal Cannula 2.00 12/27/17 23:40 99.2 97 29 139/71 97 12/27/17 23:00 88 30 120/57 (78) 96 Nasal Cannula 2.00 12/27/17 22:52 99.0 91 26 121/57 96 12/27/17 22:00 91 30 120/56 (77) 98 Nasal Cannula 2.00 12/27/17 21:00 88 30 118/54 (75) 99 Nasal Cannula 2.00 12/27/17 20:00 99.0 94 29 121/58 (79) 98 Nasal Cannula 2.00 12/27/17 18:44 25 12/27/17 17:08 97.8 93 22 117/60 (79) 97 I/O 12/27/17 12/27/17 12/27/17 12/28/17 12/28/17 12/28/17 06:59 14:59 22:59 06:59 14:59 22:59 Intake Total 75 ml 2123 ml 100 ml Balance 75 ml 2123 ml 100 ml Intake Oral 0 ml IV Total 50 ml 171 ml 100 ml Packed Cells 800 ml FFP 1122 ml Blood Product IV Normal Saline Flush 25 ml 30 ml # Voids 2 # Bowel Movements 0 Imaging Last Impressions Abdomen/Pelvis CT 12/27/17 192 Signed Impressions: Service Date/Time: Wednesday, December 27, 2017 21:00 - CONCLUSION: 1. Diffusely abnormal liver likely secondary to hepatic steatosis and possible changes of cirrhosis. 2. Splenomegaly. This could be secondary to portal hypertension. 3. Moderate ascites. 4. Calcified gallstone. Stefan Grier MD Gall Bladder Ultrasound 12/27/17 0000 Signed Impressions: Service Date/Time: Wednesday, December 27, 2017 21:16 - CONCLUSION: 1. Diffusely abnormal liver secondary to cirrhosis and hepatic steatosis. 2. Gallbladder wall thickening. This is nonspecific. This can be seen with hepatic disease. It also can be seen with cholecystitis in the correct clinical situation. Gallstones were not demonstrated on the ultrasound examination but are clearly present on the CT examination. Stefan Grier MD Laboratory Test 12/27/17 19:45 12/27/17 22:00 5/19/18 02:40 12/28/17 06:15 White Blood Count 13.6 TH/MM3 11.0 TH/MM3 Red Blood Count 3.19 MIL/MM3 3.22 MIL/MM3 Hemoglobin 8.1 GM/DL 8.6 GM/DL Hematocrit 25.1 % 25.9 % Mean Corpuscular Volume 78.7 FL 80.2 FL Mean Corpuscular Hemoglobin 25.3 PG 26.6 PG Mean Corpuscular Hemoglobin Concent 32.2 % 33.1 % Red Cell Distribution Width 24.4 % 22.9 % Platelet Count 349 TH/MM3 266 TH/MM3 Mean Platelet Volume 8.4 FL 8.6 FL CBC Comment AUTO DIFF DIFF FINAL Differential Total Cells Counted 100 Neutrophils % (Manual) 62 % Band Neutrophils % 10 % Lymphocytes % 7 % Monocytes % 13 % Eosinophils % 3 % Basophils % 5 % Neutrophils # (Manual) 9.8 TH/MM3 Differential Comment FINAL DIFF MANUAL Platelet Estimate NORMAL Platelet Morphology Comment ENLARGED Target Cells 1+ Ovalocytes 1+ Prothrombin Time 156.1 SEC 22.2 SEC Prothromb Time International Ratio 15.7 RATIO 2.2 RATIO Blood Urea Nitrogen 9 MG/DL 10 MG/DL Creatinine 0.91 MG/DL 0.94 MG/DL Random Glucose 101 MG/DL 88 MG/DL Total Protein 7.0 GM/DL 6.8 GM/DL Albumin 2.8 GM/DL 2.7 GM/DL Calcium Level 7.9 MG/DL 7.6 MG/DL Alkaline Phosphatase 171 U/L 144 U/L Aspartate Amino Transf (AST/SGOT) 439 U/L 324 U/L Alanine Aminotransferase (ALT/SGPT) 115 U/L 91 U/L Total Bilirubin 7.6 MG/DL 8.4 MG/DL Sodium Level 119 MEQ/L 125 MEQ/L Potassium Level 3.5 MEQ/L 3.7 MEQ/L Chloride Level 82 MEQ/L 87 MEQ/L Carbon Dioxide Level 21.1 MEQ/L 23.8 MEQ/L Anion Gap 16 MEQ/L 14 MEQ/L Estimat Glomerular Filtration Rate 88 ML/MIN 85 ML/MIN Ammonia 17 MCMOL/L Lipase 447 U/L Ethyl Alcohol Level 135 MG/DL Urine Color YELLOW Urine Turbidity CLEAR Urine pH 5.5 Urine Specific Ringold 1.030 Urine Protein TRACE mg/dL Urine Glucose (UA) NEG mg/dL Urine Ketones NEG mg/dL Urine Occult Blood NEG Urine Nitrite NEG Urine Bilirubin SMALL Urine Urobilinogen LESS THAN 2.0 MG/DL Urine Leukocyte Esterase NEG Urine WBC 4 /hpf Urine Squamous Epithelial Cells <1 /hpf Urine Bacteria RARE /hpf Nasal Screen MRSA (PCR) MRSA NOT DETECTED Neutrophils (%) (Auto) 59.4 % Lymphocytes (%) (Auto) 28.9 % Monocytes (%) (Auto) 9.0 % Eosinophils (%) (Auto) 1.7 % Basophils (%) (Auto) 1.0 % Neutrophils # (Auto) 6.6 TH/MM3 Lymphocytes # (Auto) 3.2 TH/MM3 Monocytes # (Auto) 1.0 TH/MM3 Eosinophils # (Auto) 0.2 TH/MM3 Basophils # (Auto) 0.1 TH/MM3 Magnesium Level 2.3 MG/DL Date/Time Source Procedure Growth Status 12/28/17 06:15 Blood Peripheral Aerobic Blood Culture Pending Received 12/28/17 06:15 Blood Peripheral Anaerobic Blood Culture Pending Received Physical Examination HEENT: Normocephalic; atraumatic; (+) icterus CHEST: Shallow respirations, tachypneic CARDIAC: Sinus tachycardia ABDOMEN: Distended, firm, nontender, bowel sounds active . EXTREMITIES: BLE edema SKIN: (+) jaundice. 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 (Sandra Fernandes) Assessment and Plan Plan Assessment: - Nausea and vomiting- hematemesis x 2 days H/H currently 8.6/25.9 S/P 2 U PRBCs Has never had EGD or colonoscopy CT abdomen and pelvis W IV contrast (12/27) --> Diffusely abnormal liver likely secondary to hepatic steatosis and possible changes of cirrhosis. Splenomegaly. This could be secondary to portal hypertension. Moderate ascites. US gallbladder (12/27) Diffusely abnormal liver secondary to cirrhosis and hepatic steatosis. Gallbladder wall thickening, nonspecific. 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 secondary to Potomania and emesis Plan: EGD- timing TBD- pt does not appear stable enough at this time Respirations shallow and tachypneic, possibly somewhat due to distended abdomen, may benefit from bedside paracentesis Obtain consent for EGD with possible banding Keep NPO Protonix gtt Octreotide gtt Monitor LFTs DF-42, would benefit from steroids when SBP rule out, pt currently on Rocephin Pentoxifylline Alcohol withdraw protocol Electrolyte replacement per [facility] Serial H/H Further recommendations based on clinical course and results of above Pt has been seen and examined by myself and Dr. Matthews and this note is written on her behalf (Sandra Fernandes) Sandra Fernandes December 28, 2017 09:29 Kami Matthews MD January 05, 2018 12:22
[2017-12-28] MEDS ORDERED: RESP: ALBUTEROL 2.5 MG/IPRATROPIUM 0.5 MG NEB (PRN) INH SCH (10:00)
[2017-12-28] MEDS ORDERED: ALBUMIN 25% INJ 50 ML IV ONE (10:30)
[2017-12-28] MEDS ORDERED: ALBUMIN 25% INJ 100 ML IV ONE (10:30)
--- NOTE | 2017-12-28 11:52 | PD.PROCEDR ---
Procedure Note Procedure Date of procedure: 12/28/2017 Procedure: Left lower quadrant paracentesis, ultrasound-guided Indication: Abdominal ascites Operators: Constantine Alvarado M.D. Details of procedure: Informed consent was from patient. The patient was laid supine. Ascites was localized with ultrasound device. The left lower quadrant was cleaned with ChloraPrep twice. Regional sterile drapes were applied. Other barrier precautions included sterile gloves and face mask. 1% lidocaine was used for local anesthesia. A skin incision was made with a scalpel blade. Arrow-Carr Pleura-Seal Thoracentesis Kit was used. An 8 Fr Catheter over 18 gauge introducer needle was inserted into the peritoneal space with return of cloudy yellow fluid. The needle was removed. Approximately 3000 mL of fluid was removed and sent for analysis and cultures. The catheter was removed and hemostasis was achieved by direct pressure. The site was cleansed with an alcohol swab and a Band-Aid was applied. Estimated blood loss: 1 cc Complications: None immediately apparent. Constantine Alvarado MD December 28, 2017 11:52
[2017-12-28] MEDS ORDERED: ROCURONIUM INJ 50 MG/5 ML SYRINGE IV PUSH ONE (12:00)
[2017-12-28] MEDS ORDERED: LIDOCAINE HCL 1% PF 5 ML SYRINGE OTHER ONE (12:00)
[2017-12-28] MEDS ORDERED: PROPOFOL 200 MG/20 ML AMP IV ONE (12:00)
[2017-12-28] MEDS ORDERED: SUCCINYLCHOLINE CHLORIDE 100 MG/5 ML SYRINGE IV PUSH ONE (12:00)
[2017-12-28 13:04] LABS: INTERNATIONAL NORMALIZED RATIO 1.9 RATIO; PROTHROMBIN TIME - PATIENT 19.2 SEC (9.8-11.6)
[2017-12-28 13:14] LABS: TOTAL PROTEIN,PERITONEAL FLUID 0.9 GM/DL
--- NOTE | 2017-12-28 13:33 | GIPROC ---
[facility] [address] [facility]. [facility], [id number] EGD PROCEDURE REPORT EXAM DATE: 12/28/2017 PATIENT NAME: Chino Henderson MR #: [id number] BIRTHDATE: 1965 ATTENDING: Kami Matthews MD ORDER #: [id number] INTERSTATE BUS DISPATCHER: Ignacio Hernandez and Regina Toro STATUS: inpatient INDICATIONS: The patient is a 52 yr old male here for an EGD due to gi bleeding cirrhosis PROCEDURE PERFORMED: EGD w/ band ligation of varices MEDICATIONS: None and Per Anesthesia. TOPICAL ANESTHETIC: none CONSENT: The patient understands the risks and benefits of the procedure and understands that these risks include, but are not limited to: sedation, allergic reaction, infection, perforation and/or bleeding. Alternative means of evaluation and treatment include, among others: physical exam, x-rays, and/or surgical intervention. The patient elects to proceed with this endoscopic procedure. medical equipment was checked for proper function. Hand hygiene and appropriate measures for infection prevention was taken. After the risks, benefits and alternatives of the procedure were thoroughly explained, Informed consent was verified, confirmed and timeout was successfully executed by the treatment team. The patient was anesthetized with topical anesthesia and the Pentax EG-[id number] endoscope was introduced through the mouth and advanced to the second portion of the duodenum. Retroflexed views revealed a hiatal hernia The gastroscope was then slowly withdrawn and removed. Esophageal varices grade - 3 columns a nipple in midesophgus was seen, possible prior banding or source of bleeding one band applied above it 3 additional band were applied under the level of the above area no active bleeding. Portal gastropathy. ADVERSE EVENTS: There were no complications. IMPRESSIONS: 1. Esophageal varices grade - 3 columns a nipple in midesophgus was seen, possible prior banding or source of bleeding one band applied above it 3 additional band were applied under the level of the above area no active bleeding 2. Retroflexed views revealed a hiatal hernia RECOMMENDATIONS: Npo except medications cta chest octreotide drip keep intubated for today iv antibiotics ppi PATIENT CONDITION: stable DISPOSITION: Inpatient REPEAT EXAM: Return 1 week EGD Kami Matthews MD eSigned: Kami Matthews MD 12/28/2017 1:33 PM cc: PATIENT NAME: Chino Henderson MR#: [id number]
[2017-12-28 13:56] LABS: PERITONEAL HISTIOCYTES 19 %; PERITONEAL LYMPHS 38 %; PERITONEAL MESOTHELIAL 28 %; PERITONEAL MONOS 7 %; PERITONEAL POLYS(SEGS) 8 %; PERITONEAL RBC 272 /MM3 (0-0)
[2017-12-28] MEDS ORDERED: RESP: ALBUTEROL 2.5 MG/IPRATROPIUM 0.5 MG NEB (SCH) NEB (14:00)
[2017-12-28] MEDS ORDERED: PROPOFOL 500 MG/50 ML INJ 50 ML ONE (14:28)
[2017-12-28] MEDS ORDERED: MIDAZOLAM HCL 2 MG/2 ML VIAL ONE (14:31)
--- NOTE | 2017-12-28 14:56 | RADRPT ---
EXAM DATE/TIME: 12/28/2017 14:31 [facility] COMPARISON: CT ABDOMEN & PELVIS W CONTRAST, December 27, 2017, 21:00. INDICATIONS : Intubation. MEDICAL HISTORY : Hypertension. Cirrhosis. Blood clots. SURGICAL HISTORY : Right knee surgery. ENCOUNTER: Subsequent ACUITY: 1 day PAIN SCORE: Non-responsive. LOCATION: Bilateral chest FINDINGS: ET tube approximately 2 cm above the antionette. Patchy airspace opacities in the left middle and bilater al lower lung zones. Cardiac silhouette is mildly enlarged. Central pulmonary vascularity is indistin ct. Osseous structures are intact. CONCLUSION: 1. ETT in good position. 2. Cardiomegaly with mild positive fluid balance. 3. Patchy airspace disease in the left middle and bilateral lower lung zones. Johnson Bell MD on December 28, 2017 at 14:52 Board Certified Radiologist. This report was verified electronically.
[2017-12-28] MEDS ORDERED: DO NOT ADM ANY ANTICOAGULANT DRUGS PRN (15:00)
[2017-12-28] MEDS: fentaNYL DRIP 250 ML IV PRN (15:03)
[2017-12-28] MEDS: PROPOFOL 1000 MG/100 ML INJ 100 ML IV PRN ×3 (15:03→21:49)
[2017-12-28] MEDS: ARTIFICIAL TEARS OPTH SOLN 15 ML BTL EACH EYE SCH ×2 (15:20→22:26)
[2017-12-28] MEDS: RESP: ALBUTEROL 2.5 MG/IPRATROPIUM 0.5 MG NEB (SCH) NEB ×3 (15:53→23:31)
[2017-12-28] MEDS ORDERED: ACETAMINOPHEN 1000 MG/100 ML 65 ML IV PRN (16:15)
[2017-12-28] MEDS ORDERED: PHYTONADIONE INJ 10 MG in SODIUM CHLORIDE 0.9% INJ 50 ML IV ONE (16:15)
[2017-12-28 16:56] LABS: HEMATOCRIT 23.5 % (39.0-51.0); HEMOGLOBIN 7.7 GM/DL (13.0-17.0)
[2017-12-28] MEDS ORDERED: EPINEPHrine HCL (1:10,000) 1 MG/10 ML SYRINGE ONE (19:18)
[2017-12-28] MEDS ORDERED: ATROPINE SULFATE 1 MG/10 ML SYRINGE ONE (19:18)
[2017-12-28] MEDS ORDERED: LIDOCAINE HCL 2% 100 MG/5 ML SYRINGE ONE (19:18)
[2017-12-28] MEDS: CHLORHEXIDINE 0.12% (ORAL KIT) 15 ML CUP MT SCH (19:20)
[2017-12-28 19:41] LABS: SODIUM (NA) 126 MEQ/L (136-145)
[2017-12-28] MEDS ORDERED: IOHEXOL 350 MG/ML 10 ML VIAL (for RAD DIAG) IVCONTRAST ONE (21:16)
--- NOTE | 2017-12-28 21:34 | RADRPT ---
EXAM DATE/TIME: 12/28/2017 21:00 [facility] COMPARISON: CT ABDOMEN & PELVIS W CONTRAST, December 27, 2017, 21:00. INDICATIONS : GI bleeding. IV CONTRAST: 88 cc Omnipaque 350 (iohexol) IV RADIATION DOSE: 10.01 CTDIvol (mGy) MEDICAL HISTORY : Hypertension. Gastroesophageal reflux disease. Liver disease. SURGICAL HISTORY : Non-responsive. ENCOUNTER: Initial ACUITY: 1 day PAIN SCALE: Non-responsive LOCATION: Aorta TECHNIQUE: Volumetric scanning was performed using a multi-row detector CT scanner. The data was post processed with a variety of visualization algorithms including full volume maximum intensity projection, multi -planar sliding thin slab reformation, curved planar reformation, and surface rendering techniques. Using automated exposure control and adjustment of the mA and/or kV according to patient size, radiat ion dose was kept as low as reasonably achievable to obtain optimal diagnostic quality images. DICOM format image data is available electronically for review and comparison. FINDINGS: LUNGS: There is bibasilar consolidation. Patchy densities are also seen within the upper lobes. No concerni ng pulmonary nodule is visualized. No pleural fluid is present. MEDIASTINUM: No abnormally enlarged lymph nodes by CT criteria. No axillary or hilar abnormalities are identified. Cardiomegaly. ABDOMEN: The liver is decreased in attenuation. Calcified gallstones. Moderate amount of abdominal ascites The pancreas demonstrate no abnormality. The adrenal glands are normal. The kidneys demonstrate no evide nce of solid renal mass or hydronephrosis. No free fluid or abdominal masses are identified. No para- aortic adenopathy is seen. Spleen appears to be mildly prominent. There are scattered mesenteric lymp h nodes. PELVIS: No evidence of free fluid or pelvic mass. No abnormally enlarged inguinal or retroperitoneal lymph no malcolm are present. The bladder is unremarkable. THORACIC AORTA: The thoracic aortic root is normal with normal branching of the great vessels. There is no evidence of aneurysm or dissection. ABDOMINAL AORTA: The aorta is normal in caliber without aneurysm or dissection. The renal arteries are patent bilater ally. The proximal celiac and superior mesenteric arteries are patent and normal in diameter. PELVIC VESSELS: The internal iliac and external iliac vessels are patent without aneurysm or stenosis. CONCLUSION: 1. Normal thoracic and abdominal aorta. No dissection/aneurysm seen. 2. Bibasilar consolidation and patchy densities in the upper lobes. 3. Hepatic steatosis with possible cirrhosis and moderate abdominal ascites. 4. Cholelithiasis. Aldair Francis MD on December 28, 2017 at 21:27 Board Certified Radiologist. This report was verified electronically.
[2017-12-28] MEDS: PENTOXIFYLLINE 400 MG CONTROLLED RELEASE TAB PO SCH (22:00)
[2017-12-29] VITALS (18 sets, daily range): BP systolic 92–114; BP diastolic 53–59; PULSE 72–90; RESP 12–18; TEMP 98.7–101; O2SAT 93–98
[2017-12-29] MEDS: PROPOFOL 1000 MG/100 ML INJ 100 ML IV PRN ×4 (00:46→08:27)
[2017-12-29] MEDS: PANTOPRAZOLE INJ 80 MG in SODIUM CHLORIDE 0.9% INJ 100 ML IV SCH (00:46)
[2017-12-29 00:53] LABS: HEMATOCRIT 22.4 % (39.0-51.0); HEMOGLOBIN 7.5 GM/DL (13.0-17.0)
[2017-12-29 02:55] LABS: ALBUMIN 2.7 GM/DL (3.4-5.0); BICARBONATE 25.9 MEQ/L (21.0-32.0); CALCIUM 6.8 MG/DL (8.5-10.1); CHOLESTEROL/ HDL RATIO 14.76 RATIO; CREATININE 1.23 MG/DL (0.60-1.30); HDL CHOLESTEROL 10.5 MG/DL (40.0-60.0); MAGNESIUM 2.1 MG/DL (1.5-2.5); PHOSPHORUS 1.9 MG/DL (2.5-4.9); TOTAL BILIRUBIN ADULT 11.7 MG/DL (0.2-1.0); TOTAL PROTEIN 5.9 GM/DL (6.4-8.2)
[2017-12-29 03:02] LABS: CALCIUM-PROTEIN CORRECTED 7.4 MG/DL (8.5-10.1)
[2017-12-29] MEDS: fentaNYL DRIP 250 ML IV PRN (03:04)
[2017-12-29] MEDS: RESP: ALBUTEROL 2.5 MG/IPRATROPIUM 0.5 MG NEB (SCH) NEB ×5 (03:17→20:35)
[2017-12-29] MEDS: SODIUM CHLOR 0.9% 1000 ML INJ 1,000 ML IV SCH ×2 (04:30→09:24)
[2017-12-29] MEDS: ARTIFICIAL TEARS OPTH SOLN 15 ML BTL EACH EYE SCH ×3 (05:28→19:55)
[2017-12-29] MEDS: PENTOXIFYLLINE 400 MG CONTROLLED RELEASE TAB PO SCH ×3 (05:28→19:50)
[2017-12-29] MEDS: CHLORHEXIDINE GLUCONATE 2 % 1 PACK (2 CLOTHS) TOP SCH (05:28)
[2017-12-29] MEDS: MULTIVITAMIN INJ 10 ML, THIAMINE INJ 100 MG, FOLIC ACID INJ 1 MG in SODIUM CHLORID 0.9%... IV SCH (08:10)
[2017-12-29] MEDS: SODIUM CHLORIDE 0.9% FLUSH 10 ML FLUSH IV FLUSH SCH ×2 (08:11→19:55)
[2017-12-29 08:12] LABS: AUTOMATED NEUTROPHIL # 9.7 TH/MM3 (1.8-7.7); BASOPHIL # 0.5 TH/MM3 (0-0.2); BASOPHIL % 3.8 % (0.0-2.0); EOSINOPHIL # 0.3 TH/MM3 (0-0.4); EOSINOPHIL % 2.1 % (0.0-4.0); HEMATOCRIT 25.1 % (39.0-51.0); HEMOGLOBIN 8.3 GM/DL (13.0-17.0); LYMPHOCYTE # 2.2 TH/MM3 (1.0-4.8); MEAN CORPUSCULAR HEMOGLOBIN 27.5 PG (27.0-34.0); MEAN CORPUSCULAR HGB CONC 33.2 % (32.0-36.0); MEAN PLATELET VOLUME 8.7 FL (7.0-11.0); MONO % 11.8 % (0.0-8.0); MONOCYTE # 1.7 TH/MM3 (0-0.9); NEUT % 67.3 % (16.0-70.0); PLATELET COUNT 269 TH/MM3 (150-450); RED BLOOD COUNT 3.02 MIL/MM3 (4.50-5.90); RED CELL DISTRIBUTION WIDTH 22.7 % (11.6-17.2); WHITE BLOOD COUNT 14.3 TH/MM3 (4.0-11.0)
[2017-12-29] MEDS: CHLORHEXIDINE 0.12% (ORAL KIT) 15 ML CUP MT SCH ×2 (08:23→19:54)
[2017-12-29] MEDS ORDERED: INFLUENZA VIRUS VACCINE (QUADRIVALENT) 0.5 ML SYR IM ONE (10:00)
[2017-12-29] MEDS ORDERED: PNEUMOCOCCAL POLYVALENT INJ 25 MCG/0.5 ML SYR IM ONE (10:00)
[2017-12-29 10:50] LABS: BICARBONATE 20.4 MEQ/L (21.0-32.0); CALCIUM 5.3 MG/DL (8.5-10.1); CREATININE 1.26 MG/DL (0.60-1.30)
[2017-12-29] MEDS: DEXMEDETOMIDINE INJ 200 MCG in SODIUM CHLORIDE 0.9% INJ 50 ML IV PRN ×5 (10:50→22:21)
[2017-12-29 11:22] LABS: TOTAL PROTEIN 5.3 GM/DL (6.4-8.2)
[2017-12-29 11:33] LABS: BANDS 8 % (0-6); BASOPHILS 3 % (0-2); LYMPHOCYTES 9 % (9-44); METAMYELOCYTES 1 % (0-1); MONOCYTES 10 % (0-8); NEUTROPHIL # MANUAL DIFF 10.9 TH/MM3 (1.8-7.7); POLYS (SEG NEUTROPHILS) 67 % (16-70)
[2017-12-29] MEDS ORDERED: CALCIUM GLUCONATE INJ 2 GM in SODIUM CHLORIDE 0.9% INJ 100 ML IV ONE (12:00)
--- NOTE | 2017-12-29 12:49 | HHI.CCPN ---
Subjective Remarks/Hospital Course Patient is a 52-year-old male with history of alcohol dependence, on chronic Coumadin for "abdominal vein thrombosis", history of hypertension who presented to the emergency department with complaints of increasing jaundice, increasing abdominal girth and vomiting jade blood multiple times over the last 2 days. Patient admits to being a heavy drinker he drinks about 1.75 L bottle hard liquor every 2 days. ER workup showed patient had a hemoglobin of 8.1, INR was 15.7. PTT 156.1, white count of 13.6 with 10% bands. Also sodium was noted to be 119, AST 439 ALT 115 and bilirubin of 7.6. A stat CT abdomen pelvis showed moderate ascites, probable cirrhosis and hepatic steatosis, splenomegaly, and gallstones. Patient had been ordered to receive 2 units of PRBC, and total 4 units of FFP. INR, Hb will be rechecked after this and additional FFP will be given accordingly. 10 mg vitamin K also ordered. Unfortunately hospital is out of [facility]. I evaluated the patient in the emergency department. He initially had an alcohol level of 135. At the time of my exam he is in moderate distress appears to be slightly tremulous. I have initiated CIWA protocol. I will also start its Rocephin for SBP prophylaxis. Patient had been started on IV Protonix infusion and octreotide which will be continued. Patient clinically also appears to have at least moderate ascites but I am unable to perform paracentesis due to elevated INR. 12/28: Currently resting in bed complaining of abdominal pain. Short of breath and tachypnea. Complaining of nausea currently. Remains on nasal cannula. Patient does not desire his mother's to have knowledge about his alcohol use. SUBJECTIVE: 12/29: Afebrile. Remains intubated post EGD yesterday due to worsening hypoxia. Currently on PSVT trial 26/05 at 40%. Remains on dexmedetomidine drip and attempt to wean with alcohol use and likely progression to DTs. Banding of varices noted. Pentoxifylline 400 mg every 8 hours initiated with appropriate Objective Vital Signs Date Time Temp Pulse Resp B/P (MAP) Pulse Ox O2 Delivery O2 Flow Rate FiO2 12/29/17 12:00 79 12/29/17 12:00 40 12/29/17 12:00 100.2 15 109/56 (73) 94 12/29/17 08:00 Mechanical Ventilator 12/28/17 10:00 4.00 Intake and Output 12/29/17 12/29/17 12/30/17 08:00 16:00 00:00 Intake Total 450 ml 122 ml Output Total 1825 ml Balance -1375 ml 122 ml Result Diagram: 12/29/17 0434 12/29/17 0800 Other Results Microbiology Date/Time Source Procedure Growth Status 12/28/17 06:15 Blood Peripheral Aerobic Blood Culture - Preliminary NO GROWTH IN 1 DAY Resulted 12/28/17 06:15 Blood Peripheral Anaerobic Blood Culture - Preliminary NO GROWTH IN 1 DAY Resulted 12/28/17 11:40 Fluid Peritoneal Fluid Gram Stain - Final Resulted 12/28/17 11:40 Fluid Peritoneal Fluid Body Fluid Culture Pending Resulted Imaging Last Impressions Chest X-Ray 12/28/17 0000 Signed Impressions: Service Date/Time: Thursday, December 28, 2017 14:31 - CONCLUSION: 1. ETT in good position. 2. Cardiomegaly with mild positive fluid balance. 3. Patchy airspace disease in the left middle and bilateral lower lung zones. Johnson Bell MD Aorta CTA 12/28/17 0000 Signed Impressions: Service Date/Time: Thursday, December 28, 2017 21:00 - CONCLUSION: 1. Normal thoracic and abdominal aorta. No dissection/aneurysm seen. 2. Bibasilar consolidation and patchy densities in the upper lobes. 3. Hepatic steatosis with possible cirrhosis and moderate abdominal ascites. 4. Cholelithiasis. Aldair Francis MD Abdomen/Pelvis CT [id number] Signed Impressions: Service Date/Time: Wednesday, December 27, 2017 21:00 - CONCLUSION: 1. Diffusely abnormal liver likely secondary to hepatic steatosis and possible changes of cirrhosis. 2. Splenomegaly. This could be secondary to portal hypertension. 3. Moderate ascites. 4. Calcified gallstone. Stefan Grier MD Gall Bladder Ultrasound 12/27/17 0000 Signed Impressions: Service Date/Time: Wednesday, December 27, 2017 21:16 - CONCLUSION: 1. Diffusely abnormal liver secondary to cirrhosis and hepatic steatosis. 2. Gallbladder wall thickening. This is nonspecific. This can be seen with hepatic disease. It also can be seen with cholecystitis in the correct clinical situation. Gallstones were not demonstrated on the ultrasound examination but are clearly present on the CT examination. Stefan Grier MD Procedures Paracentesis egd Objective Remarks GENERAL: 52-year-old male lying in bed orotracheally intubated SKIN: Warm and dry. Jaundiced HEAD: Atraumatic. Normocephalic. EYES: Pupils equal and round about 3 mm bilaterally to 2 mm. Positive for scleral icterus. ENT: No nasal bleeding or discharge. Mucous membranes dry and pink. Oropharynx without erythema or exudate NECK: Trachea midline. No JVD. CARDIOVASCULAR: Regular rate and rhythm. S1, S2. No S4. Without murmur RESPIRATORY: Clear to auscultation. Breath sounds equal bilaterally. GASTROINTESTINAL: Abdomen distended abdomen nontender obese. There is drainage from the left lower quadrants with cloudy yellow ascitic fluid positive succussion splash MUSCULOSKELETAL: Extremities -bilateral lower extreme 1+ pitting edema NEUROLOGICAL: Awake and alert. No obvious cranial nerve deficits. Motor grossly within normal limits. Follows commands on sedation Urinary Catheter: Yes Assessment to: Continue Key insert reason: Prolonged Immobilization Vascular Central Line Catheter: No Assessment to: Continue A/P Assessment and Plan NEURO/PSYCH: Early alcohol withdrawal Alcohol dependence Currently on propofol/fentanyl and dexmedetomidine drips for sedation/analgesia while intubated Using dexmedetomidine drip in order to wean off propofol and fentanyl to attempt extubation today Target RASS score of 0 on dexmedetomidine -Initiate CIWA protocol with Lorazepam -Supplement thiamine, folic acid and MVI with vitamin bag 3 days and switch to IV thiamine on 12/31 Morphine sulfate 2-4 mg IV every 3 hours as needed pain Alcohol cessation encouraged RESP: PRVC - PSV 15/10 at 40% -Nasal cannula oxygen to keep O2 sat >92% Albuterol/ipratropium aerosols every 6 hours while awake with albuterol aerosols every 2 hours as needed dyspnea -Aggressive pulmonary toilet Chest x-ray revealed possible mild volume overload. CV: History of hypertension -Normal saline IV fluids at 84 cc an hour while on pantoprazole and octreotide drips -Hold amlodipine 5 mg due to GI bleed and Spironolactone 50 mg p.o. daily As needed labetalol, Nitropaste and nicardipine drip to maintain systolic blood pressure less than 170 GI: Upper GI bleed secondary to esophageal varices Ascites/abdominal Liver cirrhosis/hepatic steatosis Cholelithiasis Elevated transaminases Elevated lipase EGD 5/19 revealed -esophageal varices/nipple admitted esophagus with 3 bands noted. Portal gastropathy. Hiatal hernia. Recommend a repeat EGD in 1 week Started on pentoxifylline 400 mg every 8 hours. Initiate when able to swallow. No NG tube currently due to varices -Continue pantoprazole infusion at 8 mg an hour, octreotide infusion at 25 mch/ hr -Ceftriaxone for SBP prophylaxis/urinary tract infection -Keep n.p.o., GI consult Status post paracentesis 12/28-3 L. White blood cell count 80. CT abdomen/pelvis revealed no sequelae of pancreatitis. CT aorta revealed no signs of dissection or leakage. FEN//Endo: Hypochloremic hyponatremia Hypo-thalassemia -Monitor renal function closely. 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 12/30 Hemoglobin has remained stable. MSK: Elevated BMI greater than 30 Weight loss encouraged PT evaluate and treat PROPH: -Bilateral lower extremity SCDs. IV pantoprazole infusion. Chemical DVT prophylaxis is contraindicated at this time LINES: -Utilize peripheral IVs, central line if needed Level 3 follow-up Constantine Alvarado MD December 29, 2017 12:49
[2017-12-29] MEDS: OCTREOTIDE INJ 500 MCG in SODIUM CHLORID 0.9% 500 ML INJ 499.5 ML IV SCH (14:28)
[2017-12-29 14:52] LABS: INTERNATIONAL NORMALIZED RATIO 1.6 RATIO; PROTHROMBIN TIME - PATIENT 16.5 SEC (9.8-11.6)
[2017-12-29 15:06] LABS: CORTISOL 16.2 MCG/DL
[2017-12-29 15:08] LABS: MAGNESIUM 2.2 MG/DL (1.5-2.5)
[2017-12-29 15:09] LABS: PHOSPHORUS 2.4 MG/DL (2.5-4.9)
[2017-12-29] MEDS ORDERED: LACTATED RINGER'S 1000 ML INJ 1,000 ML IV ONE (16:15)
--- NOTE | 2017-12-29 16:25 | HHI.GIFU ---
Subjective Remarks Pt is intubated, no bleeding reported by nurse, hh stable (Rosemarie Rodriguez) Objective Vitals I&O Vital Signs Date Time Temp Pulse Resp B/P (MAP) Pulse Ox O2 Delivery O2 Flow Rate FiO2 12/29/17 16:00 40 12/29/17 14:00 78 12/29/17 12:41 99.9 12/29/17 12:00 79 12/29/17 12:00 40 12/29/17 12:00 100.2 79 15 109/56 (73) 94 12/29/17 11:25 95 40 12/29/17 10:21 40 12/29/17 10:00 90 12/29/17 08:00 40 12/29/17 08:00 99.8 76 15 110/55 (73) 98 12/29/17 08:00 78 12/29/17 08:00 98 Mechanical Ventilator 40 12/29/17 07:33 95 40 12/29/17 06:00 78 12/29/17 04:17 96 40 12/29/17 04:00 50 12/29/17 04:00 78 12/29/17 04:00 40 12/29/17 04:00 98.7 78 17 114/59 (77) 97 12/29/17 02:00 82 12/29/17 01:13 95 40 12/29/17 00:00 99.2 78 18 102/53 (69) 93 12/29/17 00:00 78 12/29/17 00:00 50 12/28/17 22:00 84 12/28/17 20:50 100 100 12/28/17 20:00 100.1 90 15 129/65 (86) 94 12/28/17 20:00 50 12/28/17 20:00 90 12/28/17 19:31 94 40 12/28/17 19:00 94 Mechanical Ventilator 50 12/28/17 18:00 50 12/28/17 18:00 92 I/O 12/28/17 12/28/17 12/28/17 12/29/17 12/29/17 12/29/17 07:00 15:00 23:00 07:00 15:00 23:00 Intake Total 2123 ml 2531 ml 1755 ml 450 ml 122 ml Output Total 800 ml 1825 ml Balance 2123 ml 2531 ml 955 ml -1375 ml 122 ml Intake Oral 0 ml IV Total 171 ml 1707 ml 1233 ml 450 ml 122 ml Packed Cells 800 ml FFP 1122 ml 424 ml 522 ml Blood Product IV Normal Saline Flush 30 ml 200 ml Other 200 ml Output Urine Total 500 ml 625 ml Drainage Total 300 ml 1200 ml # Voids 2 # Bowel Movements 0 0 0 Laboratory Laboratory Tests Test 12/28/17 16:19 12/28/17 19:19 12/29/17 00:15 12/29/17 04:34 Hemoglobin 7.7 7.5 8.3 Hematocrit 23.5 22.4 25.1 Sodium Level 126 129 Total Creatine Kinase 300 Blood Urea Nitrogen 12 Creatinine 1.23 Random Glucose 100 Total Protein 5.9 Albumin 2.7 Calcium Level 6.8 Phosphorus Level 1.9 Magnesium Level 2.1 Alkaline Phosphatase 111 Aspartate Amino Transf (AST/SGOT) 215 Alanine Aminotransferase (ALT/SGPT) 65 Lactate Dehydrogenase 380 383 Total Bilirubin 11.7 Potassium Level Chloride Level 91 Carbon Dioxide Level 25.9 Anion Gap 12 Estimat Glomerular Filtration Rate 62 Protein Corrected Calcium 7.4 Triglycerides Level Cholesterol Level 155 LDL Cholesterol 81 HDL Cholesterol 10.5 Cholesterol/HDL Ratio 14.76 Amylase Level 48 Lipase 206 White Blood Count 14.3 Red Blood Count 3.02 Mean Corpuscular Volume 83.0 Mean Corpuscular Hemoglobin 27.5 Mean Corpuscular Hemoglobin Concent 33.2 Red Cell Distribution Width 22.7 Platelet Count 269 Mean Platelet Volume 8.7 Neutrophils (%) (Auto) 67.3 Lymphocytes (%) (Auto) 15.0 Monocytes (%) (Auto) 11.8 Eosinophils (%) (Auto) 2.1 Basophils (%) (Auto) 3.8 Neutrophils # (Auto) 9.7 Lymphocytes # (Auto) 2.2 Monocytes # (Auto) 1.7 Eosinophils # (Auto) 0.3 Basophils # (Auto) 0.5 CBC Comment AUTO DIFF Differential Total Cells Counted 100 Neutrophils % (Manual) 67 Band Neutrophils % 8 Lymphocytes % 9 Monocytes % 10 Eosinophils % 2 Basophils % 3 Neutrophils # (Manual) 10.9 Metamyelocytes 1 Differential Comment FINAL DIFF MANUAL Platelet Estimate NORMAL Platelet Morphology Comment ENLARGED Activated Partial Thromboplast Time 33.8 Fibrinogen 232 Lactic Acid Level 3.0 Ammonia 76 Test 12/29/17 08:00 12/29/17 14:04 Blood Urea Nitrogen 14 Creatinine 1.26 Random Glucose 101 Total Protein 5.3 Calcium Level 5.3 Sodium Level 128 Potassium Level 4.5 Chloride Level 96 Carbon Dioxide Level 20.4 Anion Gap 12 Estimat Glomerular Filtration Rate 61 Protein Corrected Calcium 6.0 Prothrombin Time 16.5 Prothromb Time International Ratio 1.6 Serum Osmolality 275 Uric Acid 6.6 Phosphorus Level 2.4 Magnesium Level 2.2 Thyroid Stimulating Hormone 3rd Gen 0.979 Random Cortisol 16.2 Date/Time Source Procedure Growth Status 12/28/17 06:15 Blood Peripheral Aerobic Blood Culture - Preliminary NO GROWTH IN 1 DAY Resulted 12/28/17 06:15 Blood Peripheral Anaerobic Blood Culture - Preliminary NO GROWTH IN 1 DAY Resulted 12/28/17 11:40 Fluid Peritoneal Fluid Gram Stain - Final Resulted 12/28/17 11:40 Fluid Peritoneal Fluid Body Fluid Culture - Preliminary NO GROWTH IN 24 HOURS. Resulted Imaging Last Impressions Chest X-Ray 12/28/17 0000 Signed Impressions: Service Date/Time: Thursday, December 28, 2017 14:31 - CONCLUSION: 1. ETT in good position. 2. Cardiomegaly with mild positive fluid balance. 3. Patchy airspace disease in the left middle and bilateral lower lung zones. Johnson Bell MD Aorta CTA 12/28/17 0000 Signed Impressions: Service Date/Time: Thursday, December 28, 2017 21:00 - CONCLUSION: 1. Normal thoracic and abdominal aorta. No dissection/aneurysm seen. 2. Bibasilar consolidation and patchy densities in the upper lobes. 3. Hepatic steatosis with possible cirrhosis and moderate abdominal ascites. 4. Cholelithiasis. Aldair Francis MD Abdomen/Pelvis CT [id number] Signed Impressions: Service Date/Time: Wednesday, December 27, 2017 21:00 - CONCLUSION: 1. Diffusely abnormal liver likely secondary to hepatic steatosis and possible changes of cirrhosis. 2. Splenomegaly. This could be secondary to portal hypertension. 3. Moderate ascites. 4. Calcified gallstone. Stefan Grier MD Gall Bladder Ultrasound 12/27/17 0000 Signed Impressions: Service Date/Time: Wednesday, December 27, 2017 21:16 - CONCLUSION: 1. Diffusely abnormal liver secondary to cirrhosis and hepatic steatosis. 2. Gallbladder wall thickening. This is nonspecific. This can be seen with hepatic disease. It also can be seen with cholecystitis in the correct clinical situation. Gallstones were not demonstrated on the ultrasound examination but are clearly present on the CT examination. Stefan Grier MD Physical Exam HEENT: normocephalic; atraumatic; no jaundice. CHEST: Chest is clear to auscultation and percussion. CARDIAC: Regular rate and rhythm with no murmur gallop or rubs. ABDOMEN: Soft, distended, obese, nontender; hepatosplenomegaly; bowel sounds are present in all four quadrants. EXTREMITIES: No clubbing, cyanosis, or edema. SKIN: Normal; no rash; no jaundice. 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 Splenomegaly. This could be secondary to portal hypertension. Moderate ascites. US gallbladder (12/27) Diffusely abnormal liver secondary to cirrhosis and hepatic steatosis. Gallbladder wall thickening, nonspecific. 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 secondary to Potomania and emesis (12/29) s/p EGD on 12/28 ---> 1. Esophageal varices grade - 3 columns a nipple in midesophgus was seen, possible prior banding or source of bleeding one band applied above it 3 additional band were applied under the level of the above area no active bleeding 2. Retroflexed views revealed a hiatal hernia HH stable today, Pt is s/p paracentesis on 12/28/17 3000 ml of fluid removed, cx with no growth so far, labs unremarkable Hepatitis panel negative, lipase normalized, lfts trending down but worsening bili Plan: Keep NPO Cont.Protonix gtt Cont. Octreotide gtt Monitor LFTs Pentoxifylline Alcohol withdraw protocol Monitor hh Electrolyte replacement per [facility] EGD in one week Further recommendations based on clinical course and results of above Pt has been seen and examined by myself and Dr. Matthews and this note is written on her behalf (Rosemarie Rodriguez) Physician Comments seen, examined agree with above paracentesis suggesting portal hypertension, no sbp ok to extubate today egd in 1-2 weeks avoid etoh (Kami Matthews MD) Rosemarie Rodriguez December 29, 2017 16:25 Kami Matthews MD December 29, 2017 19:21
[2017-12-29] MEDS ORDERED: SODIUM PHOSPHATE INJ 30 MMOL in SODIUM CHLOR 0.9% 250 ML INJ 250 ML IV ONE (17:00)
[2017-12-29] MEDS: cefTRIAXone INJ 1,000 MG in SODIUM CHLORIDE 0.9% INJ 100 ML IV SCH (21:47)
[2017-12-30] VITALS (16 sets, daily range): BP systolic 94–108; BP diastolic 51–60; PULSE 74–88; RESP 16–37; TEMP 99.2–100.5; O2SAT 87–96
[2017-12-30] MEDS: CHLORHEXIDINE GLUCONATE 2 % 1 PACK (2 CLOTHS) TOP SCH (00:03)
[2017-12-30] MEDS: DEXMEDETOMIDINE INJ 200 MCG in SODIUM CHLORIDE 0.9% INJ 50 ML IV PRN ×2 (00:03→01:56)
[2017-12-30] MEDS ORDERED: DEXMEDETOMIDINE INJ 1,000 MCG in SODIUM CHLOR 0.9% 250 ML INJ 240 ML IV PRN (03:15)
[2017-12-30] MEDS: RESP: ALBUTEROL 2.5 MG/IPRATROPIUM 0.5 MG NEB (SCH) NEB ×6 (03:42→19:41)
[2017-12-30] MEDS: DEXMEDETOMIDINE INJ 1,000 MCG in SODIUM CHLOR 0.9% 250 ML INJ 240 ML IV PRN ×2 (03:44→21:52)
[2017-12-30] MEDS: PENTOXIFYLLINE 400 MG CONTROLLED RELEASE TAB PO SCH ×3 (03:46→21:57)
[2017-12-30 03:55] LABS: HEMATOCRIT 26.3 % (39.0-51.0); HEMOGLOBIN 8.3 GM/DL (13.0-17.0); MEAN CORPUSCULAR HEMOGLOBIN 26.3 PG (27.0-34.0); MEAN CORPUSCULAR HGB CONC 31.7 % (32.0-36.0); MEAN PLATELET VOLUME 8.5 FL (7.0-11.0); PLATELET COUNT 283 TH/MM3 (150-450); RED BLOOD COUNT 3.17 MIL/MM3 (4.50-5.90); RED CELL DISTRIBUTION WIDTH 22.5 % (11.6-17.2); WHITE BLOOD COUNT 13.1 TH/MM3 (4.0-11.0)
[2017-12-30 04:00] LABS: INTERNATIONAL NORMALIZED RATIO 1.6 RATIO; PROTHROMBIN TIME - PATIENT 16.6 SEC (9.8-11.6)
[2017-12-30 04:23] LABS: ALBUMIN 2.7 GM/DL (3.4-5.0); BICARBONATE 22.1 MEQ/L (21.0-32.0); CALCIUM 7.2 MG/DL (8.5-10.1); CALCIUM-PROTEIN CORRECTED 7.7 MG/DL (8.5-10.1); CREATININE 2.23 MG/DL (0.60-1.30); MAGNESIUM 2.2 MG/DL (1.5-2.5); PHOSPHORUS 3.4 MG/DL (2.5-4.9); TOTAL BILIRUBIN ADULT 14.1 MG/DL (0.2-1.0); TOTAL PROTEIN 6.1 GM/DL (6.4-8.2)
[2017-12-30 04:38] LABS: BANDS 23 % (0-6); BASOPHILS 2 % (0-2); LYMPHOCYTES 13 % (9-44); MONOCYTES 8 % (0-8); NEUTROPHIL # MANUAL DIFF 9.8 TH/MM3 (1.8-7.7); POLYS (SEG NEUTROPHILS) 52 % (16-70); TOXIC GRANULATION 1+ (NORMAL); TOXIC VACUOLATION PRESENT (NONE SEEN)
--- NOTE | 2017-12-30 06:22 | HHI.CCPN ---
Subjective Remarks/Hospital Course Patient is a 52-year-old male with history of alcohol dependence, on chronic Coumadin for "abdominal vein thrombosis", history of hypertension who presented to the emergency department with complaints of increasing jaundice, increasing abdominal girth and vomiting jade blood multiple times over the last 2 days. Patient admits to being a heavy drinker he drinks about 1.75 L bottle hard liquor every 2 days. ER workup showed patient had a hemoglobin of 8.1, INR was 15.7. PTT 156.1, white count of 13.6 with 10% bands. Also sodium was noted to be 119, AST 439 ALT 115 and bilirubin of 7.6. A stat CT abdomen pelvis showed moderate ascites, probable cirrhosis and hepatic steatosis, splenomegaly, and gallstones. Patient had been ordered to receive 2 units of PRBC, and total 4 units of FFP. INR, Hb will be rechecked after this and additional FFP will be given accordingly. 10 mg vitamin K also ordered. Unfortunately hospital is out of [facility]. I evaluated the patient in the emergency department. He initially had an alcohol level of 135. At the time of my exam he is in moderate distress appears to be slightly tremulous. I have initiated CIWA protocol. I will also start its Rocephin for SBP prophylaxis. Patient had been started on IV Protonix infusion and octreotide which will be continued. Patient clinically also appears to have at least moderate ascites but I am unable to perform paracentesis due to elevated INR. 12/28: Currently resting in bed complaining of abdominal pain. Short of breath and tachypnea. Complaining of nausea currently. Remains on nasal cannula. Patient does not desire his mother's to have knowledge about his alcohol use. 12/29: Afebrile. Remains intubated post EGD yesterday due to worsening hypoxia. Currently on PSVT trial 26/05 at 40%. Remains on dexmedetomidine drip and attempt to wean with alcohol use and likely progression to DTs. Banding of varices noted. Pentoxifylline 400 mg every 8 hours initiated with appropriate SUBJECTIVE: 12/30: Awake on dexmedetomidine drip at 1 mcg/kg/min. Following commands and attempting to write. Nods his head when states he feels the effects of alcohol withdrawals. Afebrile. Continues to leak from prior site of paracentesis. Objective Vital Signs Date Time Temp Pulse Resp B/P (MAP) Pulse Ox O2 Delivery O2 Flow Rate FiO2 12/30/17 04:00 100.5 78 21 103/60 (74) 95 12/30/17 04:00 40 12/29/17 08:00 Mechanical Ventilator 12/28/17 10:00 4.00 Intake and Output 12/30/17 12/30/17 12/31/17 08:00 16:00 00:00 Intake Total 156 ml Output Total 325 ml Balance -169 ml Result Diagram: 12/30/17 0323 12/30/17 0323 Other Results Microbiology Date/Time Source Procedure Growth Status 12/28/17 06:15 Blood Peripheral Aerobic Blood Culture - Preliminary NO GROWTH IN 1 DAY Resulted 12/28/17 06:15 Blood Peripheral Anaerobic Blood Culture - Preliminary NO GROWTH IN 1 DAY Resulted 12/28/17 11:40 Fluid Peritoneal Fluid Gram Stain - Final Resulted 12/28/17 11:40 Fluid Peritoneal Fluid Body Fluid Culture - Preliminary NO GROWTH IN 24 HOURS. Resulted Imaging Last Impressions Chest X-Ray 12/28/17 0000 Signed Impressions: Service Date/Time: Thursday, December 28, 2017 14:31 - CONCLUSION: 1. ETT in good position. 2. Cardiomegaly with mild positive fluid balance. 3. Patchy airspace disease in the left middle and bilateral lower lung zones. Johnson Bell MD Aorta CTA 12/28/17 0000 Signed Impressions: Service Date/Time: Thursday, December 28, 2017 21:00 - CONCLUSION: 1. Normal thoracic and abdominal aorta. No dissection/aneurysm seen. 2. Bibasilar consolidation and patchy densities in the upper lobes. 3. Hepatic steatosis with possible cirrhosis and moderate abdominal ascites. 4. Cholelithiasis. Aldair Francis MD Abdomen/Pelvis CT [id number] Signed Impressions: Service Date/Time: Wednesday, December 27, 2017 21:00 - CONCLUSION: 1. Diffusely abnormal liver likely secondary to hepatic steatosis and possible changes of cirrhosis. 2. Splenomegaly. This could be secondary to portal hypertension. 3. Moderate ascites. 4. Calcified gallstone. Stefan Grier MD Gall Bladder Ultrasound 12/27/17 0000 Signed Impressions: Service Date/Time: Wednesday, December 27, 2017 21:16 - CONCLUSION: 1. Diffusely abnormal liver secondary to cirrhosis and hepatic steatosis. 2. Gallbladder wall thickening. This is nonspecific. This can be seen with hepatic disease. It also can be seen with cholecystitis in the correct clinical situation. Gallstones were not demonstrated on the ultrasound examination but are clearly present on the CT examination. Stefan Grier MD Procedures Paracentesis egd Objective Remarks GENERAL: 52-year-old male lying in bed orotracheally intubated SKIN: Warm and dry. Jaundiced HEAD: Atraumatic. Normocephalic. EYES: Pupils equal and round about 3 mm bilaterally to 2 mm. Positive for scleral icterus. ENT: No nasal bleeding or discharge. Mucous membranes dry and pink. Oropharynx without erythema or exudate NECK: Trachea midline. No JVD. CARDIOVASCULAR: Regular rate and rhythm. S1, S2. No S4. Without murmur RESPIRATORY: Clear to auscultation. Breath sounds equal bilaterally. GASTROINTESTINAL: Abdomen distended abdomen nontender obese. There is drainage from the left lower quadrants with cloudy yellow ascitic fluid positive succussion splash MUSCULOSKELETAL: Extremities -bilateral lower extreme 1+ pitting edema NEUROLOGICAL: Awake and alert. No obvious cranial nerve deficits. Motor grossly within normal limits. Follows commands on sedation Urinary Catheter: Yes Assessment to: Continue Key insert reason: Prolonged Immobilization Vascular Central Line Catheter: No Assessment to: Continue A/P Assessment and Plan NEURO/PSYCH: Early alcohol withdrawal Alcohol dependence Currently on dexmedetomidine drip at 1 mcg/kg/min and fentanyl drip at 25 mcg an hour for sedation/analgesia while intubated Target RASS score of 0 on dexmedetomidine -Initiate CIWA protocol with Lorazepam -Supplement thiamine, folic acid and MVI with vitamin bag 3 days and switch to IV thiamine on 12/31 Morphine sulfate 2-4 mg IV every 3 hours as needed pain Alcohol cessation encouraged RESP: PRVC - PSV 15/5 at 40% -Nasal cannula oxygen to keep O2 sat >92% Albuterol/ipratropium aerosols every 6 hours while awake with albuterol aerosols every 2 hours as needed dyspnea -Aggressive pulmonary toilet Chest x-ray revealed possible mild volume overload. CV: History of hypertension -Normal saline IV fluids at 125 cc an hour while on pantoprazole and octreotide drips -Hold amlodipine 5 mg due to GI bleed and Spironolactone 50 mg p.o. daily As needed labetalol, Nitropaste and nicardipine drip to maintain systolic blood pressure less than 170 GI: Upper GI bleed secondary to esophageal varices Ascites/abdominal Liver cirrhosis/hepatic steatosis Cholelithiasis Elevated transaminases Elevated lipase Elevated ammonia EGD 12/28 revealed -esophageal varices/nipple midesophagus with 3 bands noted. Portal gastropathy. Hiatal hernia. Recommend a repeat EGD in 1 week Started on pentoxifylline 400 mg every 8 hours. Initiate when able to swallow. No NG tube currently due to varices -Continue pantoprazole infusion at 8 mg an hour, octreotide infusion at 25 mch/ hr -Ceftriaxone for SBP prophylaxis/urinary tract infection -Keep n.p.o., Status post paracentesis 12/28-3 L. White blood cell count 80. CT abdomen/pelvis revealed no sequelae of pancreatitis. CT aorta revealed no signs of dissection or leakage. Start lactulose/rifaximin when able to swallow. No NG tube in place currently. FEN//Endo: Hypochloremia -Monitor renal function closely. 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 12/30 Hemoglobin has remained stable. Currently 8.3 RENAL: Acute kidney injury Possible contrast nephropathy. Will check urine eosinophils and electrolytes Aggressive crystalloid resuscitation 2 L +500 cc albumin 1 now. Recheck laboratories this afternoon. No hydronephrosis MSK: Elevated BMI greater than 47 Weight loss encouraged PT evaluate and treat PROPH: -Bilateral lower extremity SCDs. IV pantoprazole infusion. Chemical DVT prophylaxis is contraindicated at this time LINES: -Utilize peripheral IVs, central line if needed Level 2 follow-up Constantine Alvarado MD December 30, 2017 06:22
[2017-12-30] MEDS: ARTIFICIAL TEARS OPTH SOLN 15 ML BTL EACH EYE SCH ×3 (06:26→23:11)
[2017-12-30] MEDS ORDERED: SODIUM CHLOR 0.9% 1000 ML INJ 1,000 ML IV ONE (06:30)
[2017-12-30] MEDS ORDERED: LACTATED RINGER'S 1000 ML INJ 1,000 ML IV ONE (06:30)
[2017-12-30] MEDS ORDERED: CALCIUM GLUCONATE INJ 2 GM in DEXTROSE 5% IN WATER 100ML INJ 100 ML IV ONE ×2 (06:30)
[2017-12-30] MEDS ORDERED: ALBUMIN 5% INJ 500 ML IV ONE (06:30)
[2017-12-30] MEDS ORDERED: CALCIUM GLUCONATE 10% 1 GM/10 ML VIAL ONE (06:53)
[2017-12-30] MEDS: PANTOPRAZOLE INJ 80 MG in SODIUM CHLORIDE 0.9% INJ 100 ML IV SCH ×2 (06:54→21:55)
[2017-12-30] MEDS: CHLORHEXIDINE 0.12% (ORAL KIT) 15 ML CUP MT SCH ×2 (08:00→20:31)
[2017-12-30] MEDS: SODIUM CHLOR 0.9% 1000 ML INJ 1,000 ML IV SCH ×2 (08:40→16:29)
[2017-12-30] MEDS: SODIUM CHLORIDE 0.9% FLUSH 10 ML FLUSH IV FLUSH SCH ×2 (09:00→20:31)
[2017-12-30 10:22] LABS: BACTERIA, URINE MOD /hpf; BILIRUBIN, URINE LARGE (NEG); GLUCOSE,URINE NEG (NEG); HYALINE CAST, URINE 12 /lpf (RARE); KETONE, URINE NEG (NEG); MUCUS URINE FEW /lpf (OCC); NITRITE,URINE NEG (NEG); PH, URINE 5.5 (5.0-8.5); SQUAMOUS EPITHELIAL CELL URINE 1 /hpf (0-5); TRANSITIONAL EPI CELLS, URINE <1 /hpf; URINE LEUKOCYTE ESTERASE NEG (NEG)
[2017-12-30 10:23] LABS: URINE COLOR DARK-BROWN (YELLW/STRAW)
[2017-12-30 10:24] LABS: BLOOD, URINE TRACE (NEG)
[2017-12-30] MEDS: OCTREOTIDE INJ 500 MCG in SODIUM CHLORID 0.9% 500 ML INJ 499.5 ML IV SCH (10:32)
[2017-12-30] MEDS: MULTIVITAMIN INJ 10 ML, THIAMINE INJ 100 MG, FOLIC ACID INJ 1 MG in SODIUM CHLORID 0.9%... IV SCH (10:33)
--- NOTE | 2017-12-30 14:31 | HHI.GIFU ---
Subjective Remarks Pt remains on vent, awake and able to write down on clipboard Mother at bedside No BMs documented from today (Sandra Fernandes) Objective Vitals I&O Vital Signs Date Time Temp Pulse Resp B/P (MAP) Pulse Ox O2 Delivery O2 Flow Rate FiO2 12/30/17 11:35 91 40 12/30/17 07:28 40 12/30/17 07:28 93 40 12/30/17 04:00 100.5 78 21 103/60 (74) 95 12/30/17 04:00 40 12/30/17 03:42 95 40 12/30/17 00:17 94 40 12/30/17 00:00 100.0 74 16 97/55 (69) 96 12/30/17 00:00 40 12/29/17 20:35 94 40 12/29/17 20:00 40 12/29/17 20:00 101.0 74 16 99/54 (69) 94 12/29/17 20:00 75 12/29/17 18:00 78 12/29/17 16:38 94 40 12/29/17 16:00 99.9 72 12 92/55 (67) 96 12/29/17 16:00 79 12/29/17 16:00 40 I/O 12/29/17 12/29/17 12/29/17 12/30/17 12/30/17 12/30/17 07:00 15:00 23:00 07:00 15:00 23:00 Intake Total 450 ml 122 ml 202 ml 916 ml 1000 ml Output Total 1825 ml 650 ml 325 ml Balance -1375 ml 122 ml -448 ml 591 ml 1000 ml IV Total 450 ml 122 ml 202 ml 916 ml 1000 ml Output Urine Total 625 ml 350 ml 225 ml Drainage Total 1200 ml 300 ml 100 ml # Bowel Movements 0 0 Laboratory Laboratory Tests Test 12/30/17 03:23 12/30/17 08:45 White Blood Count 13.1 Red Blood Count 3.17 Hemoglobin 8.3 Hematocrit 26.3 Mean Corpuscular Volume 83.0 Mean Corpuscular Hemoglobin 26.3 Mean Corpuscular Hemoglobin Concent 31.7 Red Cell Distribution Width 22.5 Platelet Count 283 Mean Platelet Volume 8.5 CBC Comment AUTO DIFF Differential Total Cells Counted 100 Neutrophils % (Manual) 52 Band Neutrophils % 23 Lymphocytes % 13 Monocytes % 8 Eosinophils % 2 Basophils % 2 Neutrophils # (Manual) 9.8 Differential Comment FINAL DIFF MANUAL Toxic Granulation 1+ Toxic Vacuolation PRESENT Platelet Estimate NORMAL Platelet Morphology Comment NORMAL Prothrombin Time 16.6 Prothromb Time International Ratio 1.6 Activated Partial Thromboplast Time 32.9 Fibrinogen 242 Blood Urea Nitrogen 21 Creatinine 2.23 Random Glucose 113 Total Protein 6.1 Albumin 2.7 Calcium Level 7.2 Phosphorus Level 3.4 Magnesium Level 2.2 Alkaline Phosphatase 117 Aspartate Amino Transf (AST/SGOT) 189 Alanine Aminotransferase (ALT/SGPT) 58 Total Bilirubin 14.1 Sodium Level 132 Potassium Level 4.1 Chloride Level 97 Carbon Dioxide Level 22.1 Anion Gap 13 Estimat Glomerular Filtration Rate 31 Protein Corrected Calcium 7.7 Ammonia 82 Urine Color DARK-BROWN Urine Turbidity HAZY Urine pH 5.5 Urine Specific Johnston 1.026 Urine Protein 30 Urine Glucose (UA) NEG Urine Ketones NEG Urine Occult Blood TRACE Urine Nitrite NEG Urine Bilirubin LARGE Urine Urobilinogen 2.0 Urine Leukocyte Esterase NEG Urine RBC 2 Urine WBC 10 Urine Squamous Epithelial Cells 1 Urine Transitional Epithelial Cells <1 Urine Bacteria MOD Urine Hyaline Casts 12 Urine Mucus FEW Microscopic Urinalysis Comment CATH-CULTURE IND Urine Eosinophils NONE SEEN Urine Osmolality 351 Urine Random Creatinine 279.0 Urine Random Sodium 11 Date/Time Source Procedure Growth Status 12/28/17 06:15 Blood Peripheral Aerobic Blood Culture - Preliminary NO GROWTH IN 2 DAYS Resulted 12/28/17 06:15 Blood Peripheral Anaerobic Blood Culture - Preliminary NO GROWTH IN 2 DAYS Resulted 12/28/17 11:40 Fluid Peritoneal Fluid Gram Stain - Final Resulted 12/28/17 11:40 Fluid Peritoneal Fluid Body Fluid Culture - Preliminary NO GROWTH IN 48 HOURS. Resulted 12/30/17 09:30 Sputum Endotracheal Gram Stain Pending Received 12/30/17 09:30 Sputum Endotracheal Sputum Culture Pending Received 12/30/17 08:45 Urine Catheterized Urine Urine Culture Pending Received Imaging Last Impressions Chest X-Ray 12/28/17 0000 Signed Impressions: Service Date/Time: Thursday, December 28, 2017 14:31 - CONCLUSION: 1. ETT in good position. 2. Cardiomegaly with mild positive fluid balance. 3. Patchy airspace disease in the left middle and bilateral lower lung zones. Johnson Bell MD Aorta CTA 12/28/17 0000 Signed Impressions: Service Date/Time: Thursday, December 28, 2017 21:00 - CONCLUSION: 1. Normal thoracic and abdominal aorta. No dissection/aneurysm seen. 2. Bibasilar consolidation and patchy densities in the upper lobes. 3. Hepatic steatosis with possible cirrhosis and moderate abdominal ascites. 4. Cholelithiasis. Aldair Francis MD Abdomen/Pelvis CT 12/27/17 1922 Signed Impressions: Service Date/Time: Wednesday, December 27, 2017 21:00 - CONCLUSION: 1. Diffusely abnormal liver likely secondary to hepatic steatosis and possible changes of cirrhosis. 2. Splenomegaly. This could be secondary to portal hypertension. 3. Moderate ascites. 4. Calcified gallstone. Stefan Grier MD Gall Bladder Ultrasound 12/27/17 0000 Signed Impressions: Service Date/Time: Wednesday, December 27, 2017 21:16 - CONCLUSION: 1. Diffusely abnormal liver secondary to cirrhosis and hepatic steatosis. 2. Gallbladder wall thickening. This is nonspecific. This can be seen with hepatic disease. It also can be seen with cholecystitis in the correct clinical situation. Gallstones were not demonstrated on the ultrasound examination but are clearly present on the CT examination. Stefan Grier MD Physical Exam HEENT: Normocephalic; atraumatic; (+) icterus CHEST: Even/unlabored CARDIAC: RRR ABDOMEN: Distended, firm, nontender, bowel sounds active EXTREMITIES: BLE edema SKIN: (+) jaundiced SPRAY DYER: Awake, nonverbal due to ETT but able to write on clipboard appropriately (Sandra Fernandes) Assessment and Plan Plan Assessment: - Nausea and vomiting- hematemesis x 2 days H/H currently 8.6/25.9 S/P 2 U PRBCs Has never had EGD or colonoscopy CT abdomen and pelvis W IV contrast (12/27) --> Diffusely abnormal liver likely secondary to hepatic steatosis and possible changes of cirrhosis. Splenomegaly. This could be secondary to portal hypertension. Moderate ascites. US gallbladder (12/27) Diffusely abnormal liver secondary to cirrhosis and hepatic steatosis. Gallbladder wall thickening, nonspecific. 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 secondary to Potomania and emesis EGD (12/28) --> Esophageal varices grade - 3 columns a nipple in midesophgus was seen, possible prior banding or source of bleeding one band applied above it. Additional band were applied under the level of the above area no active bleeding. Retroflexed views revealed a hiatal hernia Paracentesis on 12/28/17 3000 ml of fluid removed, cx with no growth so far, labs unremarkable. (12/30) Pt remains on vent but is awake and able to answer questions by writing on clipboard appropriately. H/H stable overnight. Fevers and leukocytosis noted, pt on Rocephin, so far peritoneal fluid cultures negative. Increase in total bilirubin, would likely benefit from steroids at some point. On Pentoxifylline Plan: Place Dobhoff OK to start TF KUB Monitor LFTs Pentoxifylline Alcohol withdraw protocol Monitor H/H Octreotide gtt Protonix gtt Electrolyte replacement per [facility] EGD in one week Further recommendations based on clinical course and results of above Pt has been seen and examined by myself and Dr. Crews and this note is written on his behalf (Sandra Fernandes) Physician Comments Patient seen and examined Agree with above Continue with current supportive care Monitor labs Continue with current medications Okay to start feeding Via Dobbhoff (John Crews MD) Sandra Fernandes December 30, 2017 14:31 John Crews MD December 30, 2017 18:30
--- NOTE | 2017-12-30 15:12 | RADRPT ---
EXAM DATE/TIME: 12/30/2017 14:28 [place] COMPARISON: No previous studies available for comparison. INDICATIONS : Abdominal distention; dobhoff placement. MEDICAL HISTORY : Hypertension. Cirrhosis. SURGICAL HISTORY : None. ENCOUNTER: Initial ACUITY: 1 day PAIN SCORE: 0/10 LOCATION: Bilateral abdomen. FINDINGS: Weighted feeding tube tip is in the stomach. There is moderate gaseous distention of small and large bowel throughout the visualized abdomen. CONCLUSION: Dobbhoff tube tip in the stomach Stefan Lew MD on December 30, 2017 at 15:10 Board Certified Radiologist. This report was verified electronically.
[2017-12-30] MEDS: LORazepam 2 MG/ML VIAL IV PUSH PRN ×2 (15:54→18:08)
[2017-12-30] MEDS: ACETAMINOPHEN 1000 MG/100 ML 65 ML IV PRN (21:55)
[2017-12-30] MEDS: cefTRIAXone INJ 1,000 MG in SODIUM CHLORIDE 0.9% INJ 100 ML IV SCH (23:11)
[2017-12-31] VITALS (17 sets, daily range): BP systolic 92–123; BP diastolic 53–64; PULSE 70–85; RESP 17–30; TEMP 98.2–99.7; O2SAT 94–98
[2017-12-31] MEDS: SODIUM CHLOR 0.9% 1000 ML INJ 1,000 ML IV SCH ×3 (00:31→16:40)
[2017-12-31] MEDS ORDERED: SODIUM CHLOR 0.9% 1000 ML INJ 2,000 ML IV ONE (01:30)
[2017-12-31] MEDS: DEXMEDETOMIDINE INJ 1,000 MCG in SODIUM CHLOR 0.9% 250 ML INJ 240 ML IV PRN ×3 (03:28→19:13)
[2017-12-31] MEDS: PENTOXIFYLLINE 400 MG CONTROLLED RELEASE TAB PO SCH ×3 (03:29→21:22)
[2017-12-31] MEDS: CHLORHEXIDINE GLUCONATE 2 % 1 PACK (2 CLOTHS) TOP SCH (03:29)
[2017-12-31] MEDS: RESP: ALBUTEROL 2.5 MG/IPRATROPIUM 0.5 MG NEB (SCH) NEB ×6 (03:58→23:41)
[2017-12-31 04:02] LABS: HEMATOCRIT 24.5 % (39.0-51.0); HEMOGLOBIN 7.7 GM/DL (13.0-17.0); MEAN CELL VOLUME 87.4 FL (80.0-100.0); MEAN CORPUSCULAR HEMOGLOBIN 27.4 PG (27.0-34.0); MEAN CORPUSCULAR HGB CONC 31.3 % (32.0-36.0); MEAN PLATELET VOLUME 8.3 FL (7.0-11.0); PLATELET COUNT 253 TH/MM3 (150-450); RED CELL DISTRIBUTION WIDTH 23.2 % (11.6-17.2)
[2017-12-31 04:08] LABS: INTERNATIONAL NORMALIZED RATIO 1.7 RATIO; PROTHROMBIN TIME - PATIENT 16.7 SEC (9.8-11.6)
[2017-12-31 06:03] LABS: ALBUMIN 2.6 GM/DL (3.4-5.0); BICARBONATE 18.8 MEQ/L (21.0-32.0); CALCIUM 6.9 MG/DL (8.5-10.1); CREATININE 2.98 MG/DL (0.60-1.30); MAGNESIUM 2.1 MG/DL (1.5-2.5); PHOSPHORUS 3.2 MG/DL (2.5-4.9); TOTAL BILIRUBIN ADULT 20.8 MG/DL (0.2-1.0); TOTAL PROTEIN 6.1 GM/DL (6.4-8.2)
[2017-12-31 06:05] LABS: CALCIUM-PROTEIN CORRECTED 7.4 MG/DL (8.5-10.1)
--- NOTE | 2017-12-31 06:56 | HHI.CCPN ---
Subjective Remarks/Hospital Course Patient is a 52-year-old male with history of alcohol dependence, on chronic Coumadin for "abdominal vein thrombosis", history of hypertension who presented to the emergency department with complaints of increasing jaundice, increasing abdominal girth and vomiting jade blood multiple times over the last 2 days. Patient admits to being a heavy drinker he drinks about 1.75 L bottle hard liquor every 2 days. ER workup showed patient had a hemoglobin of 8.1, INR was 15.7. PTT 156.1, white count of 13.6 with 10% bands. Also sodium was noted to be 119, AST 439 ALT 115 and bilirubin of 7.6. A stat CT abdomen pelvis showed moderate ascites, probable cirrhosis and hepatic steatosis, splenomegaly, and gallstones. Patient had been ordered to receive 2 units of PRBC, and total 4 units of FFP. INR, Hb will be rechecked after this and additional FFP will be given accordingly. 10 mg vitamin K also ordered. Unfortunately hospital is out of [facility]. I evaluated the patient in the emergency department. He initially had an alcohol level of 135. At the time of my exam he is in moderate distress appears to be slightly tremulous. I have initiated CIWA protocol. I will also start its Rocephin for SBP prophylaxis. Patient had been started on IV Protonix infusion and octreotide which will be continued. Patient clinically also appears to have at least moderate ascites but I am unable to perform paracentesis due to elevated INR. 12/28: Currently resting in bed complaining of abdominal pain. Short of breath and tachypnea. Complaining of nausea currently. Remains on nasal cannula. Patient does not desire his mother's to have knowledge about his alcohol use. 12/29: Afebrile. Remains intubated post EGD yesterday due to worsening hypoxia. Currently on PSVT trial 26/05 at 40%. Remains on dexmedetomidine drip and attempt to wean with alcohol use and likely progression to DTs. Banding of varices noted. Pentoxifylline 400 mg every 8 hours initiated with appropriate 12/30: Awake on dexmedetomidine drip at 1 mcg/kg/min. Following commands and attempting to write. Nods his head when states he feels the effects of alcohol withdrawals. Afebrile. Continues to leak from prior site of paracentesis. SUBJECTIVE: 12/31: Diminished urine output noted overnight. Increasing FiO2 requirement. Bladder pressures measured currently elevated around 25. Will place tube to suction and notify GI. Nephrology consult placed. Will need central line. Objective Vital Signs Date Time Temp Pulse Resp B/P (MAP) Pulse Ox O2 Delivery O2 Flow Rate FiO2 12/31/17 04:00 73 12/31/17 04:00 99.7 19 92/53 (66) 97 12/31/17 04:00 60 12/29/17 08:00 Mechanical Ventilator 12/28/17 10:00 4.00 Result Diagram: 12/31/17 0346 12/31/17 0516 Other Results Microbiology Date/Time Source Procedure Growth Status 12/28/17 06:15 Blood Peripheral Aerobic Blood Culture - Preliminary NO GROWTH IN 2 DAYS Resulted 12/28/17 06:15 Blood Peripheral Anaerobic Blood Culture - Preliminary NO GROWTH IN 2 DAYS Resulted 12/28/17 11:40 Fluid Peritoneal Fluid Gram Stain - Final Resulted 12/28/17 11:40 Fluid Peritoneal Fluid Body Fluid Culture - Preliminary NO GROWTH IN 48 HOURS. Resulted 12/30/17 09:30 Sputum Endotracheal Gram Stain Pending Received 12/30/17 09:30 Sputum Endotracheal Sputum Culture Pending Received 12/30/17 08:45 Urine Catheterized Urine Urine Culture Pending Received Imaging Last Impressions Abdomen X-Ray 12/30/17 0000 Signed Impressions: Service Date/Time: Saturday, December 30, 2017 14:28 - CONCLUSION: Dobbhoff tube tip in the stomach Stefan Lew MD Chest X-Ray 12/28/17 0000 Signed Impressions: Service Date/Time: Thursday, December 28, 2017 14:31 - CONCLUSION: 1. ETT in good position. 2. Cardiomegaly with mild positive fluid balance. 3. Patchy airspace disease in the left middle and bilateral lower lung zones. Johnson Bell MD Aorta CTA 12/28/17 0000 Signed Impressions: Service Date/Time: Thursday, December 28, 2017 21:00 - CONCLUSION: 1. Normal thoracic and abdominal aorta. No dissection/aneurysm seen. 2. Bibasilar consolidation and patchy densities in the upper lobes. 3. Hepatic steatosis with possible cirrhosis and moderate abdominal ascites. 4. Cholelithiasis. Aldair Francis MD Abdomen/Pelvis CT [id number] Signed Impressions: Service Date/Time: Wednesday, December 27, 2017 21:00 - CONCLUSION: 1. Diffusely abnormal liver likely secondary to hepatic steatosis and possible changes of cirrhosis. 2. Splenomegaly. This could be secondary to portal hypertension. 3. Moderate ascites. 4. Calcified gallstone. Stefan Grier MD Gall Bladder Ultrasound 12/27/17 0000 Signed Impressions: Service Date/Time: Wednesday, December 27, 2017 21:16 - CONCLUSION: 1. Diffusely abnormal liver secondary to cirrhosis and hepatic steatosis. 2. Gallbladder wall thickening. This is nonspecific. This can be seen with hepatic disease. It also can be seen with cholecystitis in the correct clinical situation. Gallstones were not demonstrated on the ultrasound examination but are clearly present on the CT examination. Stefan Grier MD Procedures Paracentesis EGD Objective Remarks GENERAL: 52-year-old male lying in bed orotracheally intubated SKIN: Warm and dry. Jaundiced HEAD: Atraumatic. Normocephalic. EYES: Pupils equal and round about 3 mm bilaterally to 2 mm. Positive for scleral icterus. ENT: No nasal bleeding or discharge. Mucous membranes dry and pink. Oropharynx without erythema or exudate NECK: Trachea midline. No JVD. CARDIOVASCULAR: Regular rate and rhythm. S1, S2. No S4. Without murmur RESPIRATORY: Clear to auscultation. Breath sounds equal bilaterally. GASTROINTESTINAL: Abdomen distended abdomen nontender obese. There is drainage from the left lower quadrants with cloudy yellow ascitic fluid positive. Currently tympanic bowel sounds MUSCULOSKELETAL: Extremities -bilateral lower extreme 1+ pitting edema NEUROLOGICAL: Awake and alert. No obvious cranial nerve deficits. Motor grossly within normal limits. Follows commands on sedation Urinary Catheter: Yes Assessment to: Continue Key insert reason: Prolonged Immobilization Vascular Central Line Catheter: No Assessment to: Continue A/P Assessment and Plan NEURO/PSYCH: Early alcohol withdrawal Alcohol dependence Currently on dexmedetomidine drip at 1 mcg/kg/min and fentanyl drip at 25 mcg an hour for sedation/analgesia while intubated Target RASS score of 0 on dexmedetomidine Previously on CIWA protocol with Lorazepam -Supplement thiamine, folic acid and MVI with vitamin bag 3 days and switch to IV thiamine on 12/31 Morphine sulfate 2-4 mg IV every 3 hours as needed pain Alcohol cessation encouraged RESP: Acute respiratory failure Likely OHS, STAS PRVC 16/650/1.3/12/60 - Ventilator bundle -Nasal cannula oxygen to keep O2 sat >92% Albuterol/ipratropium aerosols every 6 hours while awake with albuterol aerosols every 2 hours as needed dyspnea -Aggressive pulmonary toilet Chest x-ray pending 12/31 CV: History of hypertension -Normal saline IV fluids at 125 cc an hour while on pantoprazole and octreotide drips -Hold amlodipine 5 mg due to GI bleed and Spironolactone 50 mg p.o. daily Systolic hypertension As needed labetalol, Nitropaste and nicardipine drip to maintain systolic blood pressure less than 170 Will need central line placement GI: Upper GI bleed secondary to esophageal varices Ascites/abdominal Liver cirrhosis/hepatic steatosis Cholelithiasis Elevated transaminases/total bilirubin Elevated lipase Elevated ammonia Hypoalbuminemia EGD 12/28 revealed -esophageal varices/nipple midesophagus with 3 bands noted. Portal gastropathy. Hiatal hernia. Recommend a repeat EGD in 1 week Started on pentoxifylline 400 mg every 8 hours. Initiate when able to swallow. No NG tube currently due to varices -Continue pantoprazole infusion at 8 mg an hour, octreotide infusion at 25 mch/ hr -Ceftriaxone for SBP prophylaxis/urinary tract infection Status post paracentesis 12/28-3 L. White blood cell count 80. CT abdomen/pelvis revealed no sequelae of pancreatitis. CT aorta revealed no signs of dissection or leakage. Start lactulose 30 every 6 hours -Dobbhoff placed yesterday KUB 12/31 pending FEN//Endo: Hypocalcemia Hyponatremia -Monitor renal function closely. 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 01/01 Hemoglobin has remained stable. Currently 8.3 RENAL: Acute kidney injury Possible contrast nephropathy. Urine sodium 11. Urine creatinine elevated. Negative urine eosinophils. No hydronephrosis on CAT scan. Will check urine eosinophils and electrolytes Nephrology consultation Elevated bladder pressures noted. Possible need decompression. Recheck laboratories this afternoon. No hydronephrosis MSK: Elevated BMI greater than 49 Weight loss encouraged PT evaluate and treat PROPH: -Bilateral lower extremity SCDs. IV pantoprazole infusion. Chemical DVT prophylaxis is contraindicated at this time LINES: -Utilize peripheral IVs, central line if needed Critical Care: The total critical care time was 35 minutes. Time to perform other separately billable procedures was not included in the critical care time. Constantine Alvarado MD December 31, 2017 06:56
[2017-12-31] MEDS ORDERED: TERBUTALINE INJ 1 MG/ML AMP SQ PRN (07:00)
[2017-12-31] MEDS ORDERED: PHYTONADIONE 5 MG/SWFI 5 ML ORAL SYR PO ONE (07:00)
[2017-12-31] MEDS ORDERED: CALCIUM CHLORIDE INJ 1 GM in DEXTROSE 5% IN WATER 100ML INJ 100 ML IV ONE ×2 (07:30)
[2017-12-31] MEDS: PHENYLEPHRINE INJ 160 MG in DEXTROSE 5% IN WATE 500 ML INJ 484 ML IV PRN ×2 (07:48)
[2017-12-31] MEDS: PROPOFOL 1000 MG/100 ML INJ 100 ML IV PRN ×3 (08:12→19:21)
[2017-12-31] MEDS: fentaNYL DRIP 250 ML IV PRN (08:13)
--- NOTE | 2017-12-31 08:51 | PD.PROCEDR ---
Central Line Procedure REASON FOR PROCEDURE Central venous access PROCEDURE PERFORMED Central line placement: Left IJ CVL CONSENT Informed consent for procedure was obtained. The risks and benefits of the procedure were discussed to include but limited to bleeding, clot formation, infection, and even . ANESTHESIA Local injection of 1% Lidocaine DESCRIPTION OF THE PROCEDURE The patient was placed in supine, mild Trendelenburg position. The area was exposed and cleansed with ChloraPrep, times two. Large sterile drape was used to cover the patient, with the site exposed, under sterile conditions including cap, face mask, sterile gown, and sterile gloves. On single attempt, the introducer needle was inserted with negative pressure in syringe and venous flash was obtained. The guide wire was then advanced without any restriction and the needle was removed. The dilator was used without any complications. Using Seldinger technique the antibiotic coated triple lumen catheter was advanced over the guide wire to a depth of 20 centimeters. The guide wire was removed. All ports were aspirated with dark venous blood return and flushed easily with sterile saline. All ports were capped. Antibiotic disc was placed around central line at puncture site. The central line was secured to the skin with two interrupted 2.0 silk sutures. The area was bandaged with sterile see- through central line bandage. RADIOLOGICAL DATA Ultrasound guidance was used to locate left internal jugular vein. Doppler/ color flow was used to confirm venous flow. COMPLICATIONS: No apparent complications ESTIMATED BLOOD LOSS: Less than 1 cc. Constantine Alvarado MD December 31, 2017 08:51
[2017-12-31] MEDS ORDERED: SODIUM CHLORIDE 0.9% FLUSH 10 ML FLUSH IV FLUSH PRN (09:00)
[2017-12-31] MEDS: SODIUM CHLORIDE 0.9% FLUSH 10 ML FLUSH IV FLUSH SCH ×3 (09:00→21:22)
[2017-12-31] MEDS: THIAMINE INJ 100 MG in SODIUM CHLORIDE 0.9% INJ 100 ML IV SCH (11:12)
[2017-12-31] MEDS: PIPERACIL-TAZO 2.25 GM PREMIX 50 ML IV SCH ×3 (11:12→21:22)
[2017-12-31] MEDS: LACTULOSE SYRUP 20 GM/30 ML CUP PO SCH ×4 (11:12→21:22)
[2017-12-31] MEDS: LINEZOLID 600 MG PREMIX 300 ML IV SCH ×2 (11:12→18:18)
[2017-12-31] MEDS: OCTREOTIDE INJ 500 MCG in SODIUM CHLORID 0.9% 500 ML INJ 499.5 ML IV SCH (11:13)
[2017-12-31] MEDS: ARTIFICIAL TEARS OPTH SOLN 15 ML BTL EACH EYE SCH ×3 (11:13→21:22)
[2017-12-31] MEDS: CHLORHEXIDINE 0.12% (ORAL KIT) 15 ML CUP MT SCH ×2 (11:13→21:22)
[2017-12-31] MEDS: PANTOPRAZOLE INJ 80 MG in SODIUM CHLORIDE 0.9% INJ 100 ML IV SCH ×2 (11:14→21:21)
--- NOTE | 2017-12-31 12:08 | RADRPT ---
EXAM DATE: 12/31/2017 10:10 AM EDT AGE/SEX: 52 years / Male INDICATIONS: Evaluate central line placement. CLINICAL DATA: This is the patient's subsequent encounter. Patient reports that signs and symptoms h ave been present for 4 - 6 days and indicates a pain score of Nonresponsive. MEDICAL/SURGICAL HISTORY: Hypertension. Cirrhosis . COMPARISON: No prior exams available for comparison. FINDINGS: Endotracheal tube in good position. Feeding significant seen traversing the esophagus. Lef t IJ line tip in superior vena cava. No pneumothorax. Exam under penetrated but diffuse airspace dise ase noted. Cardiomegaly. CONCLUSION: Left central line tip appears to be just within the superior vena cava. No pneumothorax. Endotracheal tube and feeding tube present. Diffuse bilateral airspace disease. Electronically signed by: Aditya Ramesh MD 12/31/2017 12:06 PM EDT
[2017-12-31 13:26] LABS: AMYLASE BODY FLUID 20 U/L; AMYLASE BODY FLUID TYPE PERITONEAL
--- NOTE | 2017-12-31 13:27 | HHI.GIFU ---
Subjective Remarks Pt in bed on vent. Per RN increasing abd distention. (Paula Shultz) Objective Vitals I&O Vital Signs Date Time Temp Pulse Resp B/P (MAP) Pulse Ox O2 Delivery O2 Flow Rate FiO2 12/31/17 11:14 95 60 12/31/17 07:48 78 84/49 12/31/17 07:27 98 60 12/31/17 07:27 60 12/31/17 06:00 73 12/31/17 04:00 73 12/31/17 04:00 99.7 73 19 92/53 (66) 97 12/31/17 04:00 60 12/31/17 03:58 96 60 12/31/17 02:00 70 12/31/17 00:00 60 12/31/17 00:00 85 12/31/17 00:00 99.6 77 30 104/62 (76) 96 12/30/17 22:00 82 12/30/17 20:00 40 12/30/17 20:00 82 12/30/17 20:00 99.2 82 22 96/54 (68) 93 12/30/17 19:41 93 40 12/30/17 18:00 83 12/30/17 16:00 83 12/30/17 16:00 100.0 83 24 102/56 (71) 91 12/30/17 16:00 40 12/30/17 15:18 92 40 12/30/17 14:00 80 I/O 12/30/17 12/30/17 12/30/17 12/31/17 12/31/17 12/31/17 07:00 15:00 23:00 07:00 15:00 23:00 Intake Total 916 ml 4231.2 ml 1350 ml 3423 ml Output Total 325 ml 300 ml 225 ml Balance 591 ml 4231.2 ml 1050 ml 3198 ml IV Total 916 ml 4231.2 ml 1350 ml 3350 ml Tube Feeding 73 ml Output Urine Total 225 ml 250 ml 175 ml Drainage Total 100 ml 50 ml 50 ml # Bowel Movements 0 0 Laboratory Laboratory Tests Test 12/31/17 03:46 12/31/17 05:16 12/31/17 07:06 White Blood Count 13.0 Red Blood Count 2.80 Hemoglobin 7.7 Hematocrit 24.5 Mean Corpuscular Volume 87.4 Mean Corpuscular Hemoglobin 27.4 Mean Corpuscular Hemoglobin Concent 31.3 Red Cell Distribution Width 23.2 Platelet Count 253 Mean Platelet Volume 8.3 Prothrombin Time 16.7 Prothromb Time International Ratio 1.7 Activated Partial Thromboplast Time 31.5 Lactic Acid Level 2.6 Blood Urea Nitrogen 29 Creatinine 2.98 Random Glucose 128 Total Protein 6.1 Albumin 2.6 Calcium Level 6.9 Phosphorus Level 3.2 Magnesium Level 2.1 Alkaline Phosphatase 102 Aspartate Amino Transf (AST/SGOT) 147 Alanine Aminotransferase (ALT/SGPT) 50 Total Bilirubin 20.8 Sodium Level 135 Potassium Level 4.3 Chloride Level 102 Carbon Dioxide Level 18.8 Anion Gap 14 Estimat Glomerular Filtration Rate 22 Protein Corrected Calcium 7.4 Ammonia 56 Blood Gas Puncture Site RT RADIAL Blood Gas Patient Temperature 98.6 Blood Gas HCO3 17 Blood Gas Base Excess -7.9 Blood Gas Oxygen Saturation 95 Arterial Blood pH 7.36 Arterial Blood Partial Pressure CO2 30 Arterial Blood Partial Pressure O2 93 Arterial Blood Oxygen Content 10.2 Arterial Blood Carboxyhemoglobin 2.2 Arterial Blood Methemoglobin 0.7 Blood Gas Hemoglobin 7.5 Oxygen Delivery Device VENTILATOR Blood Gas Ventilator Setting PRVC/15/650/1.3/+12 Blood Gas Inspired Oxygen 60 Date/Time Source Procedure Growth Status 12/31/17 10:51 Blood Peripheral Aerobic Blood Culture Pending Received 12/31/17 10:51 Blood Peripheral Anaerobic Blood Culture Pending Received 12/28/17 11:40 Fluid Peritoneal Fluid Gram Stain - Final Complete 12/28/17 11:40 Fluid Peritoneal Fluid Body Fluid Culture - Final NO GROWTH IN 72 HRS.--AEROBICALLY OR ... Complete 12/30/17 09:30 Sputum Endotracheal Gram Stain - Final Resulted 12/30/17 09:30 Sputum Endotracheal Sputum Culture - Preliminary HEAVY GROWTH NORMAL RESPIRATORY AISHWARYA... Resulted 12/30/17 08:45 Urine Catheterized Urine Urine Culture - Preliminary NO GROWTH IN 24 HOURS. Resulted Imaging Last Impressions Chest X-Ray 12/31/17 0849 Signed Impressions: CONCLUSION: Left central line tip appears to be just within the superior vena c baldev. No pneumothorax. Endotracheal tube and feeding tube present. Diffuse bilat eral airspace disease. Abdomen X-Ray 12/30/17 0000 Signed Impressions: Service Date/Time: Saturday, December 30, 2017 14:28 - CONCLUSION: Dobbhoff tube tip in the stomach Stefan Lew MD Aorta CTA 12/28/17 0000 Signed Impressions: Service Date/Time: Thursday, December 28, 2017 21:00 - CONCLUSION: 1. Normal thoracic and abdominal aorta. No dissection/aneurysm seen. 2. Bibasilar consolidation and patchy densities in the upper lobes. 3. Hepatic steatosis with possible cirrhosis and moderate abdominal ascites. 4. Cholelithiasis. Aldair Francis MD Abdomen/Pelvis CT 12/27/17 192 Signed Impressions: Service Date/Time: Wednesday, December 27, 2017 21:00 - CONCLUSION: 1. Diffusely abnormal liver likely secondary to hepatic steatosis and possible changes of cirrhosis. 2. Splenomegaly. This could be secondary to portal hypertension. 3. Moderate ascites. 4. Calcified gallstone. Stefan Grier MD Gall Bladder Ultrasound 12/27/17 0000 Signed Impressions: Service Date/Time: Wednesday, December 27, 2017 21:16 - CONCLUSION: 1. Diffusely abnormal liver secondary to cirrhosis and hepatic steatosis. 2. Gallbladder wall thickening. This is nonspecific. This can be seen with hepatic disease. It also can be seen with cholecystitis in the correct clinical situation. Gallstones were not demonstrated on the ultrasound examination but are clearly present on the CT examination. Stefan Grier MD Physical Exam HEENT: Normocephalic; atraumatic; (+) icterus CHEST: Even/unlabored CARDIAC: RRR ABDOMEN: Distended,semi firm, nontender, hypoactive bowel sounds EXTREMITIES: BLE edema SKIN: (+) jaundiced [employer]: did not rouse to exam (Paula Shultz [facility]) Assessment and Plan Plan Assessment: - Nausea and vomiting- hematemesis x 2 days H/H currently 8.6/25.9 S/P 2 U PRBCs Has never had EGD or colonoscopy CT abdomen and pelvis W IV contrast (12/27) --> Diffusely abnormal liver likely secondary to hepatic steatosis and possible changes of cirrhosis. Splenomegaly. This could be secondary to portal hypertension. Moderate ascites. US gallbladder (12/27) Diffusely abnormal liver secondary to cirrhosis and hepatic steatosis. Gallbladder wall thickening, nonspecific. - Transaminitis- ETOH abuse- drinks 1.75 L of vodka every 2-3 days DF-42 Currently AST-324 ALT-91 Alk phos-144 T bili-8.4 - Coumadin with supratherapeutic INR- INR 15.7 on admission now S/P 4 U FFP and Vit K (hospital out of [facility]) SM[facility] with duodenal ischemia diagnosed in June at [facility]- has been on Coumadin since then - Elevated lipase- lipase 447 - Leukocytosis- Possible SBP- on Rocephin - Hyponatremia- ? secondary to Potomania and emesis EGD (12/28) --> Esophageal varices grade - 3 columns a nipple in midesophgus was seen, possible prior banding or source of bleeding one band applied above it. Additional band were applied under the level of the above area no active bleeding. Retroflexed views revealed a hiatal hernia Paracentesis on 12/28/17 3000 ml of fluid removed, cx with no growth so far, labs unremarkable. (12/30) Pt remains on vent but is awake and able to answer questions by writing on clipboard appropriately. H/H stable overnight. Fevers and leukocytosis noted, pt on Rocephin, so far peritoneal fluid cultures negative. Increase in total bilirubin, would likely benefit from steroids at some point. On Pentoxifylline 12/31/17 increasing abd dist, BS were hypoactive. appears pt has vomited/ spit up TF. No blood seen. Plan: Place Dobhoff to light suction hold TF KUB monitor labs Pentoxifylline Octreotide gtt Protonix gtt Electrolyte replacement per [facility] EGD in one week supportive care Pt has been seen and examined by myself and Dr. Crews and this note is written on his behalf (Paula Shultz) Physician Comments Patient seen and examined Agree with above Continue with current supportive care Monitor labs Await KUB (John Crews MD) Paula Shultz December 31, 2017 13:27 John Crews MD December 31, 2017 21:40
--- NOTE | 2017-12-31 13:45 | PD.CONS ---
HPI Service Nephrology Consult Requested By Dr. 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 His creatinine is rising at 2.9 today, baseline creatinine is 0.91, he has ascites tap, banding of esophageal varices. Review of Systems ROS Limitations: Clinical Condition Past Family Social History Allergies: Coded Allergies: No Known Allergies (Unverified , 12/27/17) Past Medical History Previous history of thrombosis of abdominal vessel Alcoholism Hypertension Obesity Past Surgical History History of right knee surgery Reported Medications Reported Meds & Active Scripts Active Reported Jantoven (Warfarin) 2.5 Mg Tab 2.5 Mg PO DAILY Spironolactone 50 Mg Tab 50 Mg PO DAILY Amlodipine (Amlodipine Besylate) 5 Mg Tab 5 Mg PO DAILY Active Ordered Medications Current Medications Medications (Trade) Dose Ordered Sig/Bobo Route Start Time Stop Time Status Last Admin Octreotide Acetate 500 mcg/ Sodium Chloride 500 ml @ 25 mls/hr Q20H IV 12/27/17 22:14 12/31/17 11:13 Sodium Chloride 1,000 ml @ 125 mls/hr Q8H IV 12/27/17 22:15 12/31/17 11:14 (NS Flush) 2 ml UNSCH PRN IV FLUSH 12/27/17 22:15 (NS Flush) 2 ml BID IV FLUSH 12/28/17 09:00 12/31/17 09:00 ([facility] [place] Nursing Information) 1 [id number] XX 12/27/17 22:15 (Chlorhexidine 2% Cloth) 3 pack Taper DAILY@04 TOP 12/28/17 04:00 12/24/18 03:59 12/29/17 05:28 (Chlorhexidine 2% Cloth) 3 pack UNSCH PRN TOP 12/27/17 22:15 (Romazicon Inj) 0.2 mg Q1M PRN IV PUSH 12/27/17 23:30 (Ativan) 1 mg Q4H PRN PO 12/27/17 23:30 (Ativan Inj) 1 mg Q4H PRN IV PUSH 12/27/17 23:30 12/31/17 00:31 (Ativan) 2 mg Q2H PRN PO 12/27/17 23:30 (Ativan Inj) 2 mg Q2H PRN IV PUSH 12/27/17 23:30 12/30/17 18:08 (Ativan Inj) 2 mg Q1H PRN IV PUSH 12/27/17 23:30 12/28/17 09:08 (Ativan Inj) 2 mg Q15M PRN IV PUSH 12/27/17 23:30 (Morphine Inj) 2 mg Q3H PRN IV 12/28/17 01:30 12/28/17 08:06 (Compazine Inj) 5 mg Q6H PRN IV PUSH 12/28/17 08:15 12/28/17 09:08 Thiamine HCl 100 mg/Sodium Chloride 101 ml @ 101 mls/hr DAILY IV 12/31/17 09:00 01/10/18 08:59 12/31/17 11:12 (Trandate Inj) 5 mg Q1HR PRN IV PUSH 12/28/17 08:15 (Nitroglycerin 2% Oint) 2 inch Q6HR PRN TOPICAL 12/28/17 08:15 Nicardipine HCl 25 mg/Sodium Chloride 260 ml @ 52 mls/hr TITRATE PRN IV 12/28/17 08:15 (Morphine Inj) 4 mg Q3H PRN IV PUSH 12/28/17 08:15 (Albuterol Neb) 2.5 mg Q2HR NEB PRN NEB 12/28/17 08:15 (Peridex 0.12% Liq) 15 ml BID@08,20 MT 12/28/17 20:00 12/31/17 11:13 Propofol 100 ml @ 4.071 mls/ hr TITRATE PRN IV 12/28/17 14:30 12/31/17 08:12 Fentanyl Citrate 250 ml @ 5 mls/hr TITRATE PRN IV 12/28/17 14:30 12/31/17 08:13 (Duoneb Neb) 1 ampule Q4HR NEB NEB 12/28/17 16:00 12/31/17 11:10 (Tears Naturale Opth Soln) 1 drop Q8H EACH EYE 12/28/17 15:00 12/31/17 11:13 (TRENtal SR) 400 mg Q8HR PO 12/28/17 22:00 Acetaminophen 65 ml @ 400 mls/hr Q8HR PRN IV 12/29/17 12:45 12/30/17 21:55 Dexmedetomidine HCl 1000 mcg/ Sodium Chloride 250 ml @ 6.99 mls/hr TITRATE PRN IV 12/30/17 03:15 12/31/17 11:15 Linezolid 300 ml @ 300 mls/hr Q12H IV 12/31/17 07:00 01/07/18 06:59 12/31/17 11:12 Piperacillin Sod/ Tazobactam Sod 50 ml @ 100 mls/hr Q6H IV 12/31/17 08:00 12/31/17 11:12 (Lactulose Liq) 30 ml QID PO 12/31/17 09:00 12/31/17 11:12 Phenylephrine HCl 160 mg/Dextrose 500 ml @ 7.5 mls/hr TITRATE PRN IV 12/31/17 07:00 12/31/17 07:48 (Brethine Inj) 1 mg UNSCH PRN SQ 12/31/17 07:00 (NS Flush) DAILY IV FLUSH 12/31/17 09:00 12/31/17 09:00 (NS Flush) UNSCH PRN IV FLUSH 12/31/17 09:00 Pantoprazole Sodium 80 mg/ Sodium Chloride 100 ml @ 10 mls/hr Q10H IV 12/31/17 10:00 12/31/17 11:14 Albumin Human 100 ml @ 60 mls/hr Q12H IV 12/31/17 13:30 UNV (Lasix Inj) 40 mg BID@,18 IV PUSH 12/31/17 18:00 UNV Family History Noncontributory Social History He admits to drinking about 1.75 L hard liquor every 2 days Denies smoking or any other drug use Physical Exam Vital Signs Vital Signs Date Time Temp Pulse Resp B/P (MAP) Pulse Ox O2 Delivery O2 Flow Rate FiO2 12/31/17 11:14 95 60 12/31/17 07:48 78 84/49 12/31/17 07:27 98 60 12/31/17 07:27 60 12/31/17 06:00 73 12/31/17 04:00 73 12/31/17 04:00 99.7 73 19 92/53 (66) 97 12/31/17 04:00 60 12/31/17 03:58 96 60 12/31/17 02:00 70 12/31/17 00:00 60 12/31/17 00:00 85 12/31/17 00:00 99.6 77 30 104/62 (76) 96 12/30/17 22:00 82 12/30/17 20:00 40 12/30/17 20:00 82 12/30/17 20:00 99.2 82 22 96/54 (68) 93 12/30/17 19:41 93 40 12/30/17 18:00 83 12/30/17 16:00 83 12/30/17 16:00 100.0 83 24 102/56 (71) 91 12/30/17 16:00 40 12/30/17 15:18 92 40 12/30/17 14:00 80 Physical Exam GENERAL: Well-nourished, well-developed obese, j jaundice, intubated patient. SKIN: Warm and dry. HEAD: Normocephalic. EYES: Positive scleral icterus. No injection or drainage. NECK: Supple, trachea midline. No JVD or lymphadenopathy. CARDIOVASCULAR: Tachycardia RESPIRATORY: Breath sounds equal bilaterally. No accessory muscle use. GASTROINTESTINAL: Abdomen soft, distended. EXTREMITIES: 2+ edema. NEUROLOGICAL: On the 30 Laboratory Laboratory Tests Test 12/31/17 03:46 12/31/17 05:16 12/31/17 07:06 White Blood Count 13.0 Red Blood Count 2.80 Hemoglobin 7.7 Hematocrit 24.5 Mean Corpuscular Volume 87.4 Mean Corpuscular Hemoglobin 27.4 Mean Corpuscular Hemoglobin Concent 31.3 Red Cell Distribution Width 23.2 Platelet Count 253 Mean Platelet Volume 8.3 Prothrombin Time 16.7 Prothromb Time International Ratio 1.7 Activated Partial Thromboplast Time 31.5 Lactic Acid Level 2.6 Blood Urea Nitrogen 29 Creatinine 2.98 Random Glucose 128 Total Protein 6.1 Albumin 2.6 Calcium Level 6.9 Phosphorus Level 3.2 Magnesium Level 2.1 Alkaline Phosphatase 102 Aspartate Amino Transf (AST/SGOT) 147 Alanine Aminotransferase (ALT/SGPT) 50 Total Bilirubin 20.8 Sodium Level 135 Potassium Level 4.3 Chloride Level 102 Carbon Dioxide Level 18.8 Anion Gap 14 Estimat Glomerular Filtration Rate 22 Protein Corrected Calcium 7.4 Ammonia 56 Blood Gas Puncture Site RT RADIAL Blood Gas Patient Temperature 98.6 Blood Gas HCO3 17 Blood Gas Base Excess -7.9 Blood Gas Oxygen Saturation 95 Arterial Blood pH 7.36 Arterial Blood Partial Pressure CO2 30 Arterial Blood Partial Pressure O2 93 Arterial Blood Oxygen Content 10.2 Arterial Blood Carboxyhemoglobin 2.2 Arterial Blood Methemoglobin 0.7 Blood Gas Hemoglobin 7.5 Oxygen Delivery Device VENTILATOR Blood Gas Ventilator Setting PRVC/15/650/1.3/+12 Blood Gas Inspired Oxygen 60 Date/Time Source Procedure Growth Status 12/31/17 10:51 Blood Peripheral Aerobic Blood Culture Pending Received 12/31/17 10:51 Blood Peripheral Anaerobic Blood Culture Pending Received 12/28/17 11:40 Fluid Peritoneal Fluid Gram Stain - Final Complete 12/28/17 11:40 Fluid Peritoneal Fluid Body Fluid Culture - Final NO GROWTH IN 72 HRS.--AEROBICALLY OR ... Complete 12/30/17 09:30 Sputum Endotracheal Gram Stain - Final Resulted 12/30/17 09:30 Sputum Endotracheal Sputum Culture - Preliminary HEAVY GROWTH NORMAL RESPIRATORY AISHWARYA... Resulted 12/30/17 08:45 Urine Catheterized Urine Urine Culture - Preliminary NO GROWTH IN 24 HOURS. Resulted Result Diagram: 12/31/17 0346 12/31/17 0516 Imaging Last Impressions Chest X-Ray 12/31/17 0849 Signed Impressions: CONCLUSION: Left central line tip appears to be just within the superior vena c baldev. No pneumothorax. Endotracheal tube and feeding tube present. Diffuse bilat eral airspace disease. Abdomen X-Ray 12/30/17 0000 Signed Impressions: Service Date/Time: Saturday, December 30, 2017 14:28 - CONCLUSION: Dobbhoff tube tip in the stomach Stefan Lew MD Aorta CTA 12/28/17 0000 Signed Impressions: Service Date/Time: Thursday, December 28, 2017 21:00 - CONCLUSION: 1. Normal thoracic and abdominal aorta. No dissection/aneurysm seen. 2. Bibasilar consolidation and patchy densities in the upper lobes. 3. Hepatic steatosis with possible cirrhosis and moderate abdominal ascites. 4. Cholelithiasis. Aldair Francis MD Abdomen/Pelvis CT 12/27/17 1922 Signed Impressions: Service Date/Time: Wednesday, December 27, 2017 21:00 - CONCLUSION: 1. Diffusely abnormal liver likely secondary to hepatic steatosis and possible changes of cirrhosis. 2. Splenomegaly. This could be secondary to portal hypertension. 3. Moderate ascites. 4. Calcified gallstone. Stefan Grier MD Gall Bladder Ultrasound 12/27/17 0000 Signed Impressions: Service Date/Time: Wednesday, December 27, 2017 21:16 - CONCLUSION: 1. Diffusely abnormal liver secondary to cirrhosis and hepatic steatosis. 2. Gallbladder wall thickening. This is nonspecific. This can be seen with hepatic disease. It also can be seen with cholecystitis in the correct clinical situation. Gallstones were not demonstrated on the ultrasound examination but are clearly present on the CT examination. Stefan Grier MD Assessment and Plan Problem List: (1) Acute renal failure ICD Codes: N17.9 - Acute kidney failure, unspecified Plan: Patient has liver cirrhosis and possible hepatorenal syndrome is considered, he did receive contrast studies as well, I will try to give him albumin along with Lasix to see if he can Diurese some more Continue to monitor CMP Liver and Kidney function Avoid nephrotoxins or dye studies (2) Upper GI bleed ICD Codes: K92.2 - Gastrointestinal hemorrhage, unspecified Plan: GI is following (3) Alcoholic cirrhosis ICD Codes: K70.30 - Alcoholic cirrhosis of liver without ascites Plan: Followed by GI (4) Coagulopathy ICD Codes: D68.9 - Coagulation defect, unspecified Plan: Patient has received blood product, FFP and PRBCs (5) Ascites ICD Codes: R18.8 - Other ascites Plan: Due to alcoholic cirrhosis (6) Hyponatremia ICD Codes: E87.1 - Hypo-osmolality and hyponatremia Plan: Sodium has improved Problem Qualifiers (1) Ascites: Qualified Codes: K70.31 - Alcoholic cirrhosis of liver with ascites Ciro Elder MD December 31, 2017 13:45
--- NOTE | 2017-12-31 14:03 | RADRPT ---
EXAM DATE: 12/31/2017 1:49 PM EDT AGE/SEX: 52 years / Male INDICATIONS: Hematemesis. Jaundice. CLINICAL DATA: This is the patient's initial encounter. Patient reports that signs and symptoms have been present for 1 day and indicates a pain score of Nonresponsive. MEDICAL/SURGICAL HISTORY: Hypertension. Gastroesophageal reflux disease. Cirrhosis. Hemateme sis. Coumadin use for abdominal vein thrombosis. . Lasik eye surgery. Right knee surgery. COMPARISON: No prior [facility] exams available for comparison. No external comparison. MEASUREMENTS (cm x cm x cm): Liver:__ 20.0 cm length Common Bile Duct:__ Nonvisualized Right Kidney:__ 13.2 x 8.3 x 6.2CM Spleen:__ 14.6 FINDINGS: Liver: The liver is diffusely enlarged. There is diffuse increased echogenicity throughout the liver parenchyma. No definite dilated biliary ducts. Portal Vein: Portal vein flow not visualized. Common Duct: Not visualized Gallbladder: The gallbladder wall is thickened at 12 mm with some pericholecystic fluid. No stones s een. Pancreas: Not visualized Right Kidney: No evidence of hydronephrosis. CONCLUSION: 1. Diffuse increased echogenicity throughout the liver suggestive of fatty infiltration and/or hepat ocellular disease. 2. Hepatomegaly. 3. Thickened gallbladder wall at 12 mm. No definite gallstones are seen. As can be seen with chronic gallbladder disease. Electronically signed by: Juvenal Bryant MD 12/31/2017 2:01 PM EDT
[2017-12-31] MEDS: ALBUMIN 25% INJ 100 ML IV SCH (14:11)
[2017-12-31] MEDS: FUROSEMIDE 40 MG/4 ML VIAL IV PUSH SCH (18:18)
[2017-12-31 19:18] LABS: BICARBONATE 15.5 MEQ/L (21.0-32.0); CALCIUM 7.9 MG/DL (8.5-10.1); CREATININE 3.03 MG/DL (0.60-1.30)
[2018-01-01] VITALS (19 sets, daily range): BP systolic 110–136; BP diastolic 65–82; PULSE 70–77; RESP 17–24; TEMP 99–100; O2SAT 90–95
[2018-01-01] MEDS: ALBUMIN 25% INJ 100 ML IV SCH ×2 (00:29→14:33)
[2018-01-01] MEDS: PROPOFOL 1000 MG/100 ML INJ 100 ML IV PRN ×5 (00:42→21:30)
[2018-01-01] MEDS: PIPERACIL-TAZO 2.25 GM PREMIX 50 ML IV SCH ×4 (00:42→20:11)
[2018-01-01] MEDS: ACETAMINOPHEN 1000 MG/100 ML 65 ML IV PRN (01:30)
[2018-01-01] MEDS: DEXMEDETOMIDINE INJ 1,000 MCG in SODIUM CHLOR 0.9% 250 ML INJ 240 ML IV PRN ×3 (02:45→17:30)
[2018-01-01] MEDS: RESP: ALBUTEROL 2.5 MG/IPRATROPIUM 0.5 MG NEB (SCH) NEB ×6 (03:22→23:27)
[2018-01-01] MEDS: CHLORHEXIDINE GLUCONATE 2 % 1 PACK (2 CLOTHS) TOP SCH (04:00)
[2018-01-01 04:39] LABS: HEMATOCRIT 25.4 % (39.0-51.0); HEMOGLOBIN 8.1 GM/DL (13.0-17.0); MEAN CELL VOLUME 87.2 FL (80.0-100.0); MEAN CORPUSCULAR HEMOGLOBIN 27.7 PG (27.0-34.0); MEAN CORPUSCULAR HGB CONC 31.8 % (32.0-36.0); MEAN PLATELET VOLUME 8.2 FL (7.0-11.0); PLATELET COUNT 301 TH/MM3 (150-450); RED BLOOD COUNT 2.91 MIL/MM3 (4.50-5.90); RED CELL DISTRIBUTION WIDTH 24.8 % (11.6-17.2); WHITE BLOOD COUNT 13.8 TH/MM3 (4.0-11.0)
[2018-01-01 04:42] LABS: INTERNATIONAL NORMALIZED RATIO 1.5 RATIO; PROTHROMBIN TIME - PATIENT 15.1 SEC (9.8-11.6)
[2018-01-01] MEDS: PANTOPRAZOLE INJ 80 MG in SODIUM CHLORIDE 0.9% INJ 100 ML IV SCH ×2 (04:47→17:10)
[2018-01-01] MEDS: SODIUM CHLOR 0.9% 1000 ML INJ 1,000 ML IV SCH ×3 (04:47→17:11)
[2018-01-01] MEDS: PENTOXIFYLLINE 400 MG CONTROLLED RELEASE TAB PO SCH ×4 (04:47→22:23)
[2018-01-01 04:53] LABS: AST (GOT) 129 U/L (15-37); BICARBONATE 17.9 MEQ/L (21.0-32.0); BLOOD UREA NITROGEN 34 MG/DL (7-18); CALCIUM 7.8 MG/DL (8.5-10.1); CHLORIDE 102 MEQ/L (98-107); CREATININE 3.31 MG/DL (0.60-1.30); GLOMERULAR FILTRATION RATE 20 ML/MIN (>89); GLUCOSE,RANDOM 117 MG/DL (74-106); MAGNESIUM 2.2 MG/DL (1.5-2.5); SODIUM (NA) 134 MEQ/L (136-145)
[2018-01-01 04:54] LABS: ALT (GPT) 44 U/L (12-78); PHOSPHORUS 3.6 MG/DL (2.5-4.9)
[2018-01-01 04:56] LABS: ALKALINE PHOSPHATASE 92 U/L (45-117); TOTAL BILIRUBIN ADULT 20.6 MG/DL (0.2-1.0); TOTAL PROTEIN 6.4 GM/DL (6.4-8.2)
[2018-01-01 05:14] LABS: BANDS 46 % (0-6); BASOPHILS 1 % (0-2); LYMPHOCYTES 3 % (9-44); METAMYELOCYTES 1 % (0-1); MONOCYTES 7 % (0-8); NEUTROPHIL # MANUAL DIFF 11.7 TH/MM3 (1.8-7.7); POLYS (SEG NEUTROPHILS) 38 % (16-70); TOXIC GRANULATION 1+ (NORMAL)
--- NOTE | 2018-01-01 05:49 | RADRPT ---
EXAM DATE: 01/01/2018 5:45 AM EDT AGE/SEX: 52 years / Male INDICATIONS: Shortness of breath. CLINICAL DATA: This is the patient's subsequent encounter. Patient reports that signs and symptoms h ave been present for 4 - 6 days and indicates a pain score of Nonresponsive. MEDICAL/SURGICAL HISTORY: . Hypertension. Gastroesophageal reflux disease. Cirrhosis. Hematemes is. Coumadin use for abdominal vein thrombosis. . Lasik eye surgery. Right knee surgery. COMPAR[place]: [facility] [place] 12[place]. . FINDINGS: A single AP portable semierect view of the chest was obtained. The endotracheal tube remains in place with the tip approximately 3 cm above the antionette. A feeding tube is seen coursing through the esopha angelique into the stomach. The left internal jugular central venous line remains in place. Hazy opacity is present in both lungs left greater than right. Appears improved. The heart size remains mildly enlar ged. CONCLUSION: Hazy opacity in both lungs left greater than right which appears mildly improved from the prior study . Electronically signed by: Joseph Martins MD 01/01/2018 5:47 AM EDT
[2018-01-01] MEDS: ARTIFICIAL TEARS OPTH SOLN 15 ML BTL EACH EYE SCH ×3 (06:00→22:24)
[2018-01-01] MEDS: LINEZOLID 600 MG PREMIX 300 ML IV SCH ×2 (06:00→18:47)
--- NOTE | 2018-01-01 06:11 | RADRPT ---
EXAM DATE: 01/01/2018 5:49 AM EDT AGE/SEX: 52 years / Male INDICATIONS: Abdominal distention. CLINICAL DATA: This is the patient's subsequent encounter. Patient reports that signs and symptoms h ave been present for 4 - 6 days and indicates a pain score of Nonresponsive. MEDICAL/SURGICAL HISTORY: . Hypertension. Gastroesophageal reflux disease. Cirrhosis. Hematemes is. Coumadin use for abdominal vein thrombosis. . Lasik eye surgery. Right knee surgery [place] [facility] [place]. . FINDINGS: 3 AP supine views of the abdomen and pelvis were obtained and again demonstrate the feeding tube wit h the tip in the mid stomach. Moderate gaseous distention is again noted in the transverse colon and there are multiple loops of borderline dilated air containing small bowel in the abdomen. There is no evidence of free air or mass effect on this supine study. Lung bases are clear. The bony structures remain intact. 1. CONCLUSION: 2. The nonspecific bowel gas pattern is again noted without significant change. This most likely re presents an ileus. 3. The Dobbhoff feeding tube remains in place. Electronically signed by: Joseph Martins MD 01/01/2018 6:10 AM EDT
[2018-01-01] MEDS: OCTREOTIDE INJ 500 MCG in SODIUM CHLORID 0.9% 500 ML INJ 499.5 ML IV SCH ×2 (06:31→23:48)
[2018-01-01] MEDS ORDERED: GLUCAGON 1 MG/ML VIAL OTHER PRN (07:45)
[2018-01-01] MEDS ORDERED: DEXTROSE 50% IN WATER 50 ML VIAL(D50) IV PUSH PRN (07:45)
[2018-01-01] MEDS: CHLORHEXIDINE 0.12% (ORAL KIT) 15 ML CUP MT SCH ×2 (07:51→20:11)
[2018-01-01] MEDS: INSULIN NovoLIN REGULAR SUPPLEMENTAL SCALE SQ SCH ×4 (08:00→20:00)
[2018-01-01] MEDS ORDERED: METHYLNALTREXONE BROMIDE 12 MG/0.6 ML VIAL SQ ONE (08:00)
--- NOTE | 2018-01-01 08:00 | HHI.CCPN ---
Subjective Remarks/Hospital Course Patient is a 52-year-old male with history of alcohol dependence, on chronic Coumadin for "abdominal vein thrombosis", history of hypertension who presented to the emergency department with complaints of increasing jaundice, increasing abdominal girth and vomiting jade blood multiple times over the last 2 days. Patient admits to being a heavy drinker he drinks about 1.75 L bottle hard liquor every 2 days. ER workup showed patient had a hemoglobin of 8.1, INR was 15.7. PTT 156.1, white count of 13.6 with 10% bands. Also sodium was noted to be 119, AST 439 ALT 115 and bilirubin of 7.6. A stat CT abdomen pelvis showed moderate ascites, probable cirrhosis and hepatic steatosis, splenomegaly, and gallstones. Patient had been ordered to receive 2 units of PRBC, and total 4 units of FFP. INR, Hb will be rechecked after this and additional FFP will be given accordingly. 10 mg vitamin K also ordered. Unfortunately hospital is out of [facility]. I evaluated the patient in the emergency department. He initially had an alcohol level of 135. At the time of my exam he is in moderate distress appears to be slightly tremulous. I have initiated CIWA protocol. I will also start its Rocephin for SBP prophylaxis. Patient had been started on IV Protonix infusion and octreotide which will be continued. Patient clinically also appears to have at least moderate ascites but I am unable to perform paracentesis due to elevated INR. 12/28: Currently resting in bed complaining of abdominal pain. Short of breath and tachypnea. Complaining of nausea currently. Remains on nasal cannula. Patient does not desire his mother's to have knowledge about his alcohol use. 12/29: Afebrile. Remains intubated post EGD yesterday due to worsening hypoxia. Currently on PSVT trial 26/05 at 40%. Remains on dexmedetomidine drip and attempt to wean with alcohol use and likely progression to DTs. Banding of varices noted. Pentoxifylline 400 mg every 8 hours initiated with appropriate 12/30: Awake on dexmedetomidine drip at 1 mcg/kg/min. Following commands and attempting to write. Nods his head when states he feels the effects of alcohol withdrawals. Afebrile. Continues to leak from prior site of paracentesis. 12/31: Diminished urine output noted overnight. Increasing FiO2 requirement. Bladder pressures measured currently elevated around 25. Will place tube to suction and notify GI. Nephrology consult placed. Will need central line. SUBJECTIVE: 01/01: T-max 100. Currently 99. Meld score 34. Discriminant function is 34. Pratt alcohol scale score 7. Arousable the ventilator. FiO2 increased to 40- 60% overnight. 350 cc from NG tube overnight. Objective Vital Signs Date Time Temp Pulse Resp B/P (MAP) Pulse Ox O2 Delivery O2 Flow Rate FiO2 01/01/18 07:24 94 60 01/01/18 06:00 70 01/01/18 04:00 99.0 17 110/66 (81) 12/29/17 08:00 Mechanical Ventilator 12/28/17 10:00 4.00 Intake and Output 01/01/18 01/01/18 01/01/18 07:59 15:59 23:59 Intake Total 2200 ml Output Total 950 ml Balance 1250 ml Result Diagram: 01/01/18 0400 01/01/18 0400 Other Results Microbiology Date/Time Source Procedure Growth Status 12/31/17 10:51 Blood Peripheral Aerobic Blood Culture Pending Received 12/31/17 10:51 Blood Peripheral Anaerobic Blood Culture Pending Received 12/28/17 11:40 Fluid Peritoneal Fluid Gram Stain - Final Complete 12/28/17 11:40 Fluid Peritoneal Fluid Body Fluid Culture - Final NO GROWTH IN 72 HRS.--AEROBICALLY OR ... Complete 12/30/17 09:30 Sputum Endotracheal Gram Stain - Final Resulted 12/30/17 09:30 Sputum Endotracheal Sputum Culture - Preliminary HEAVY GROWTH NORMAL RESPIRATORY AISHWARYA... Resulted 12/30/17 08:45 Urine Catheterized Urine Urine Culture - Preliminary NO GROWTH IN 24 HOURS. Resulted Imaging Last Impressions Chest X-Ray 01/01/18 0600 Signed Impressions: CONCLUSION: Liver Ultrasound 12/31/17 0000 Signed Impressions: CONCLUSION: Abdomen X-Ray 12/30/17 0000 Signed Impressions: Service Date/Time: Saturday, December 30, 2017 14:28 - CONCLUSION: Dobbhoff tube tip in the stomach Stefan Lew MD Aorta CTA 12/28/17 0000 Signed Impressions: Service Date/Time: Thursday, December 28, 2017 21:00 - CONCLUSION: 1. Normal thoracic and abdominal aorta. No dissection/aneurysm seen. 2. Bibasilar consolidation and patchy densities in the upper lobes. 3. Hepatic steatosis with possible cirrhosis and moderate abdominal ascites. 4. Cholelithiasis. Aldair Francis MD Abdomen/Pelvis CT 12/27/17 192 Signed Impressions: Service Date/Time: Wednesday, December 27, 2017 21:00 - CONCLUSION: 1. Diffusely abnormal liver likely secondary to hepatic steatosis and possible changes of cirrhosis. 2. Splenomegaly. This could be secondary to portal hypertension. 3. Moderate ascites. 4. Calcified gallstone. Stefan Grier MD Gall Bladder Ultrasound 12/27/17 0000 Signed Impressions: Service Date/Time: Wednesday, December 27, 2017 21:16 - CONCLUSION: 1. Diffusely abnormal liver secondary to cirrhosis and hepatic steatosis. 2. Gallbladder wall thickening. This is nonspecific. This can be seen with hepatic disease. It also can be seen with cholecystitis in the correct clinical situation. Gallstones were not demonstrated on the ultrasound examination but are clearly present on the CT examination. Stefan Grier MD Procedures Paracentesis EGD Objective Remarks GENERAL: 52-year-old male lying in bed orotracheally intubated SKIN: Warm and dry. Jaundiced HEAD: Atraumatic. Normocephalic. EYES: Pupils equal and round about 3 mm bilaterally to 2 mm. Positive for scleral icterus. ENT: No nasal bleeding or discharge. Mucous membranes dry and pink. Oropharynx without erythema or exudate NECK: Trachea midline. No JVD. CARDIOVASCULAR: Regular rate and rhythm. S1, S2. No S4. Without murmur RESPIRATORY: Clear to auscultation. Breath sounds equal bilaterally. GASTROINTESTINAL: Abdomen distended abdomen nontender obese. There is drainage from the left lower quadrants with cloudy yellow ascitic fluid positive. Currently tympanic bowel sounds MUSCULOSKELETAL: Extremities -bilateral lower extreme 1+ pitting edema NEUROLOGICAL: Awake and alert. No obvious cranial nerve deficits. Motor grossly within normal limits. Follows commands on sedation Urinary Catheter: Yes Assessment to: Continue Key insert reason: Prolonged Immobilization Vascular Central Line Catheter: Yes Assessment to: Continue Date of Insertion: December 31, 2017 Line: Central Venous Catheter Side: Left Location: Internal, Jugular A/P Assessment and Plan NEURO/PSYCH: Early alcohol withdrawal Alcohol dependence Currently on dexmedetomidine drip at 1 mcg/kg/min and propofol drip at 20 mcg/kg /min for sedation/analgesia while intubated Target RASS score of 0 on dexmedetomidine Previously on CIWA protocol with Lorazepam -Supplement thiamine, folic acid and MVI with vitamin bag 3 days and switch to IV thiamine on 12/31 Alcohol cessation encouraged RESP: Acute respiratory failure Likely OHS, STAS PRVC 16/500/1.12/22/59 - Ventilator bundle -Nasal cannula oxygen to keep O2 sat >92% Albuterol/ipratropium aerosols every 6 hours while awake with albuterol aerosols every 2 hours as needed dyspnea -Aggressive pulmonary toilet Chest x-ray in a.m. 01/02 CV: History of hypertension -Normal saline IV fluids at 75 cc an hour while on pantoprazole and octreotide drips -Hold amlodipine 5 mg due to GI bleed and Spironolactone 50 mg p.o. daily Systolic hypertension As needed labetalol, Nitropaste and nicardipine drip to maintain systolic blood pressure less than 170 GI: Upper GI bleed secondary to esophageal varices Ascites/abdominal Liver cirrhosis/hepatic steatosis Cholelithiasis Elevated transaminases/total bilirubin Elevated lipase Elevated ammonia Hypoalbuminemia EGD 12/28 revealed -esophageal varices/nipple midesophagus with 3 bands noted. Portal gastropathy. Hiatal hernia. Recommend a repeat EGD in 1 week Dobbhoff tube placed currently to low suction per GIs recommendations Started on pentoxifylline 400 mg every 8 hours. Unfortunately cannot get an NG tube initiate when able to swallow. No NG tube currently due to varices -Continue pantoprazole infusion at 8 mg an hour, octreotide infusion at 25 mch/ hr -Ceftriaxone for SBP prophylaxis/urinary tract infection Status post paracentesis 12/28-3 L. White blood cell count 80. CT abdomen/pelvis revealed no sequelae of pancreatitis. CT aorta revealed no signs of dissection or leakage. Start lactulose 30 every 6 hours. Add docusate sodium liquid 100 mg twice daily , senna 8.8 mg twice daily and Plavix and glycol 17 g twice daily. 1 dose of methylnaltrexone 1 now. Mineral oil enema if needed -Dobbhoff placed 12/31 KUB 01/01 revealed air possible ileus. Serum low-dose metoclopramide 5 every 8 FEN//Endo: Hypocalcemia Hyponatremia -Monitor renal function closely. 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 01/01 Hemoglobin has remained stable. Currently 8.1 RENAL: Acute kidney injury -early hepatorenal syndrome Possible contrast nephropathy. Urine sodium 11. Urine creatinine elevated. Negative urine eosinophils. No hydronephrosis on CAT scan. Will check urine eosinophils and electrolytes Nephrology consultation appreciated. Clean furosemide 40 mg IV twice daily for creatinine currently 3.3 Elevated bladder pressures noted. Possible need decompression. Recheck laboratories this afternoon. No hydronephrosis MSK: Elevated BMI greater than 49 Weight loss encouraged PT evaluate and treat PROPH: -Bilateral lower extremity SCDs. IV pantoprazole infusion. Chemical DVT prophylaxis is contraindicated at this time LINES: -Utilize peripheral IVs, left IJ CVL day #2 placed 12/31 Critical Care: The total critical care time was 35 minutes. Time to perform other separately billable procedures was not included in the critical care time. Constantine Alvarado MD January 01, 2018 08:00
[2018-01-01] MEDS: POLYETHYLENE GLYCOL 17 GM PKG PO SCH ×2 (08:48→20:12)
[2018-01-01] MEDS: LACTULOSE SYRUP 20 GM/30 ML CUP PO SCH ×4 (08:48→20:12)
[2018-01-01] MEDS: DOCUSATE SODIUM 100 MG/10 ML UDC PO SCH ×2 (08:48→20:12)
[2018-01-01] MEDS: SENNOSIDES SYRUP 8.8 MG/5 ML CUP PO SCH ×2 (08:49→20:12)
[2018-01-01] MEDS: FUROSEMIDE 40 MG/4 ML VIAL IV PUSH SCH ×2 (08:50→17:10)
[2018-01-01] MEDS: SODIUM CHLORIDE 0.9% FLUSH 10 ML FLUSH IV FLUSH SCH ×3 (08:50→20:12)
[2018-01-01] MEDS: THIAMINE INJ 100 MG in SODIUM CHLORIDE 0.9% INJ 100 ML IV SCH (08:51)
[2018-01-01] MEDS ORDERED: MINERAL OIL ENEMA 118 ML BTL RECTAL ONE (09:00)
--- NOTE | 2018-01-01 12:22 | HHI.NPPN ---
Subjective History of Present Illness 52-year-old male, Alcoholic hepatitis/cirrhosis received contrast study and acute renal failure Objective Data Data Vital Signs Date Time Temp Pulse Resp B/P (MAP) Pulse Ox O2 Delivery O2 Flow Rate FiO2 01/01/18 11:31 95 50 01/01/18 10:00 70 01/01/18 08:00 75 01/01/18 08:00 60 01/01/18 08:00 99.4 75 20 136/82 (100) 94 01/01/18 07:24 94 60 01/01/18 06:00 70 01/01/18 04:02 94 60 01/01/18 04:00 99.0 77 17 110/66 (81) 92 01/01/18 04:00 77 01/01/18 04:00 40 01/01/18 02:00 70 01/01/18 01:01 94 40 01/01/18 00:00 40 01/01/18 00:00 75 01/01/18 00:00 100.0 75 19 122/73 (89) 94 12/31/17 22:00 70 12/31/17 20:00 76 12/31/17 20:00 40 12/31/17 20:00 99.1 76 17 123/64 (83) 94 12/31/17 19:26 95 40 12/31/17 18:00 70 12/31/17 16:00 98.2 74 18 110/62 (78) 94 12/31/17 16:00 74 12/31/17 16:00 60 12/31/17 15:02 95 50 12/31/17 14:00 76 -: 01/01/18 0400 01/01/18 0400 Physical Exam General Appearance: Well Developed, Well Nourished Neck Neck Exam: Neck Supple Pulmonary Resp Exam: Clear Bilaterally, Diminished Breath Sounds Cardiology CV Exam: Regular, Normal Sinus Rhythm Gastrointestinal/Abdomen GI Exam: Soft, Distended Extremeties Extremities Exam: Moderate Edema Assessment/Plan Problem List: (1) Acute renal failure ICD Codes: N17.9 - Acute kidney failure, unspecified Plan: Patient has liver cirrhosis and possible hepatorenal syndrome is considered, he did receive contrast studies as well, His creatinine slightly elevated His urine output picked up with albumin and Lasix Continue to monitor CMP Liver and Kidney function Avoid nephrotoxins or dye studies (2) Upper GI bleed ICD Codes: K92.2 - Gastrointestinal hemorrhage, unspecified Plan: GI is following (3) Alcoholic cirrhosis ICD Codes: K70.30 - Alcoholic cirrhosis of liver without ascites Plan: Followed by GI (4) Coagulopathy ICD Codes: D68.9 - Coagulation defect, unspecified Plan: Patient has received blood product, FFP and PRBCs (5) Ascites ICD Codes: R18.8 - Other ascites Plan: Due to alcoholic cirrhosis (6) Hyponatremia ICD Codes: E87.1 - Hypo-osmolality and hyponatremia Plan: Sodium has improved Problem Qualifiers (1) Acute renal failure: Qualified Codes: N17.9 - Acute kidney failure, unspecified (2) Alcoholic cirrhosis: Qualified Codes: K70.31 - Alcoholic cirrhosis of liver with ascites (3) Ascites: Qualified Codes: K70.31 - Alcoholic cirrhosis of liver with ascites Ciro Elder MD January 01, 2018 12:22
--- NOTE | 2018-01-01 13:47 | HHI.GIFU ---
Subjective Remarks Pt intubated. ABd distention persists. Dobhoff to suction. (Paula ShultzP) Objective Vitals I&O Vital Signs Date Time Temp Pulse Resp B/P (MAP) Pulse Ox O2 Delivery O2 Flow Rate FiO2 01/01/18 12:00 72 01/01/18 12:00 99.1 72 23 117/68 (84) 90 01/01/18 12:00 50 01/01/18 11:31 95 50 01/01/18 10:00 70 01/01/18 08:00 75 01/01/18 08:00 60 01/01/18 08:00 99.4 75 20 136/82 (100) 94 01/01/18 07:24 94 60 01/01/18 06:00 70 01/01/18 04:02 94 60 01/01/18 04:00 99.0 77 17 110/66 (81) 92 01/01/18 04:00 77 01/01/18 04:00 40 01/01/18 02:00 70 01/01/18 01:01 94 40 01/01/18 00:00 40 01/01/18 00:00 75 01/01/18 00:00 100.0 75 19 122/73 (89) 94 12/31/17 22:00 70 12/31/17 20:00 76 12/31/17 20:00 40 12/31/17 20:00 99.1 76 17 123/64 (83) 94 12/31/17 19:26 95 40 12/31/17 18:00 70 12/31/17 16:00 98.2 74 18 110/62 (78) 94 12/31/17 16:00 74 12/31/17 16:00 60 12/31/17 15:02 95 50 12/31/17 14:00 76 I/O 12/31/17 12/31/17 12/31/17 01/01/18 01/01/18 01/01/18 06:59 14:59 22:59 06:59 14:59 22:59 Intake Total 3423 ml 2525 ml 600 ml 2200 ml Output Total 225 ml 405 ml 950 ml Balance 3198 ml 2525 ml 195 ml 1250 ml IV Total 3350 ml 2525 ml 500 ml 2200 ml Tube Feeding 73 ml 0 ml Tube Irrigant 100 ml Output Urine Total 175 ml 400 ml 625 ml Gastric Drainage Total 325 ml Drainage Total 50 ml 5 ml # Bowel Movements 0 0 Laboratory Laboratory Tests Test 12/31/17 18:45 01/01/18 04:00 Blood Urea Nitrogen 33 34 Creatinine 3.03 3.31 Random Glucose 133 117 Calcium Level 7.9 7.8 Sodium Level 133 134 Potassium Level 4.7 4.1 Chloride Level 102 102 Carbon Dioxide Level 15.5 17.9 Anion Gap 16 14 Estimat Glomerular Filtration Rate 22 20 White Blood Count 13.8 Red Blood Count 2.91 Hemoglobin 8.1 Hematocrit 25.4 Mean Corpuscular Volume 87.2 Mean Corpuscular Hemoglobin 27.7 Mean Corpuscular Hemoglobin Concent 31.8 Red Cell Distribution Width 24.8 Platelet Count 301 Mean Platelet Volume 8.2 CBC Comment AUTO DIFF Differential Total Cells Counted 100 Neutrophils % (Manual) 38 Band Neutrophils % 46 Lymphocytes % 3 Monocytes % 7 Eosinophils % 4 Basophils % 1 Neutrophils # (Manual) 11.7 Metamyelocytes 1 Differential Comment FINAL DIFF MANUAL Toxic Granulation 1+ Platelet Estimate NORMAL Platelet Morphology Comment NORMAL Prothrombin Time 15.1 Prothromb Time International Ratio 1.5 Activated Partial Thromboplast Time 34.5 Total Protein 6.4 Albumin 3.0 Phosphorus Level 3.6 Magnesium Level 2.2 Alkaline Phosphatase 92 Aspartate Amino Transf (AST/SGOT) 129 Alanine Aminotransferase (ALT/SGPT) 44 Total Bilirubin 20.6 Ammonia 47 Total Creatine Kinase 154 Date/Time Source Procedure Growth Status 12/31/17 10:51 Blood Peripheral Aerobic Blood Culture - Preliminary NO GROWTH IN 1 DAY Resulted 12/31/17 10:51 Blood Peripheral Anaerobic Blood Culture - Preliminary NO GROWTH IN 1 DAY Resulted 12/28/17 11:40 Fluid Peritoneal Fluid Gram Stain - Final Complete 12/28/17 11:40 Fluid Peritoneal Fluid Body Fluid Culture - Final NO GROWTH IN 72 HRS.--AEROBICALLY OR ... Complete 12/30/17 09:30 Sputum Endotracheal Gram Stain - Final Complete 12/30/17 09:30 Sputum Endotracheal Sputum Culture - Final HEAVY GROWTH NORMAL RESPIRATORY AISHWARYA Complete 12/30/17 08:45 Urine Catheterized Urine Urine Culture - Final NO GROWTH IN 48 HOURS. Complete Imaging Last Impressions Chest X-Ray 01/01/18 0600 Signed Impressions: CONCLUSION: Liver Ultrasound 12/31/17 0000 Signed Impressions: CONCLUSION: Abdomen X-Ray 12/30/17 0000 Signed Impressions: Service Date/Time: Saturday, December 30, 2017 14:28 - CONCLUSION: Dobbhoff tube tip in the stomach Stefan Lew MD Aorta CTA 12/28/17 0000 Signed Impressions: Service Date/Time: Thursday, December 28, 2017 21:00 - CONCLUSION: 1. Normal thoracic and abdominal aorta. No dissection/aneurysm seen. 2. Bibasilar consolidation and patchy densities in the upper lobes. 3. Hepatic steatosis with possible cirrhosis and moderate abdominal ascites. 4. Cholelithiasis. Aldair Francis MD Abdomen/Pelvis CT [id number]/[id number] Signed Impressions: Service Date/Time: Wednesday, December 27, 2017 21:00 - CONCLUSION: 1. Diffusely abnormal liver likely secondary to hepatic steatosis and possible changes of cirrhosis. 2. Splenomegaly. This could be secondary to portal hypertension. 3. Moderate ascites. 4. Calcified gallstone. Stefan Grier MD Gall Bladder Ultrasound 12/27/17 0000 Signed Impressions: Service Date/Time: Wednesday, December 27, 2017 21:16 - CONCLUSION: 1. Diffusely abnormal liver secondary to cirrhosis and hepatic steatosis. 2. Gallbladder wall thickening. This is nonspecific. This can be seen with hepatic disease. It also can be seen with cholecystitis in the correct clinical situation. Gallstones were not demonstrated on the ultrasound examination but are clearly present on the CT examination. 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 Splenomegaly. This could be secondary to portal hypertension. Moderate ascites. US gallbladder (12/27) Diffusely abnormal liver secondary to cirrhosis and hepatic steatosis. Gallbladder wall thickening, nonspecific. - Transaminitis- ETOH abuse- drinks 1.75 L of vodka every 2-3 days DF-42 Currently AST-324 ALT-91 Alk phos-144 T bili-8.4 - Coumadin with supratherapeutic INR- INR 15.7 on admission now S/P 4 U FFP and Vit K (hospital [facility]) SM[facility] with duodenal ischemia diagnosed in June at [facility]- has been on Coumadin since then - Elevated lipase- lipase 447 - Leukocytosis- Possible SBP- on Rocephin - Hyponatremia- ? secondary to Potomania and emesis EGD (12/28) --> Esophageal varices grade - 3 columns a nipple in midesophgus was seen, possible prior banding or source of bleeding one band applied above it. Additional band were applied under the level of the above area no active bleeding. Retroflexed views revealed a hiatal hernia Paracentesis on 12/28/17 3000 ml of fluid removed, cx with no growth so far, labs unremarkable. (12/30) Pt remains on vent but is awake and able to answer questions by writing on clipboard appropriately. H/H stable overnight. Fevers and leukocytosis noted, pt on Rocephin, so far peritoneal fluid cultures negative. Increase in total bilirubin, would likely benefit from steroids at some point. On Pentoxifylline 12/31/17 increasing abd dist, BS were hypoactive. appears pt has vomited/ spit up TF. No blood seen. 01/01/18 KUB suggests ileus, not much change from prior. persistent distention. Dobhoff to suction. worsening kidney function, nephrology now following. ?HRS s/p relistor, no BM. Plan: Dobhoff to light suction cont reglan cont bowel regimen monitor labs Pentoxifylline Octreotide gtt Protonix gtt EGD in one week supportive care Pt has been seen and examined by myself and Dr. Crews and this note is written on his behalf (Paula Shultz) Physician Comments Patient seen and examined Agree with above Continue with current supportive care Monitor labs (John Crews MD) Paula Shultz January 01, 2018 13:47 John Crews MD January 01, 2018 19:54
[2018-01-01] MEDS: METOCLOPRAMIDE HCL 10 MG/2 ML VIAL IV PUSH SCH ×2 (14:35→22:23)
[2018-01-02] VITALS (19 sets, daily range): BP systolic 102–120; BP diastolic 53–73; PULSE 66–72; RESP 20–23; TEMP 99.5–100.5; O2SAT 89–94
[2018-01-02] MEDS: SODIUM CHLOR 0.9% 1000 ML INJ 1,000 ML IV SCH ×3 (00:46→16:40)
[2018-01-02] MEDS: PANTOPRAZOLE INJ 80 MG in SODIUM CHLORIDE 0.9% INJ 100 ML IV SCH ×3 (01:23→22:30)
[2018-01-02] MEDS: ALBUMIN 25% INJ 100 ML IV SCH ×2 (02:20→13:57)
[2018-01-02] MEDS: PIPERACIL-TAZO 2.25 GM PREMIX 50 ML IV SCH ×4 (02:20→22:32)
[2018-01-02] MEDS: PROPOFOL 1000 MG/100 ML INJ 100 ML IV PRN ×6 (02:22→22:36)
[2018-01-02] MEDS: RESP: ALBUTEROL 2.5 MG/IPRATROPIUM 0.5 MG NEB (SCH) NEB ×6 (03:42→23:47)
[2018-01-02] MEDS: INSULIN NovoLIN REGULAR SUPPLEMENTAL SCALE SQ SCH ×6 (04:00→20:00)
[2018-01-02] MEDS: CHLORHEXIDINE GLUCONATE 2 % 1 PACK (2 CLOTHS) TOP SCH (04:49)
[2018-01-02 05:41] LABS: HEMATOCRIT 25.7 % (39.0-51.0); HEMOGLOBIN 8.2 GM/DL (13.0-17.0); MEAN CELL VOLUME 88.7 FL (80.0-100.0); MEAN CORPUSCULAR HEMOGLOBIN 28.3 PG (27.0-34.0); MEAN CORPUSCULAR HGB CONC 31.9 % (32.0-36.0); MEAN PLATELET VOLUME 8.3 FL (7.0-11.0); PLATELET COUNT 252 TH/MM3 (150-450); RED CELL DISTRIBUTION WIDTH 25.7 % (11.6-17.2); WHITE BLOOD COUNT 11.8 TH/MM3 (4.0-11.0)
[2018-01-02 05:51] LABS: INTERNATIONAL NORMALIZED RATIO 1.6 RATIO
[2018-01-02] MEDS: PENTOXIFYLLINE 400 MG CONTROLLED RELEASE TAB PO SCH ×3 (05:55→22:00)
[2018-01-02] MEDS: METOCLOPRAMIDE HCL 10 MG/2 ML VIAL IV PUSH SCH ×3 (05:58→22:34)
[2018-01-02] MEDS: ARTIFICIAL TEARS OPTH SOLN 15 ML BTL EACH EYE SCH ×3 (05:59→23:12)
[2018-01-02] MEDS: LINEZOLID 600 MG PREMIX 300 ML IV SCH ×2 (05:59→18:45)
[2018-01-02 06:26] LABS: ALBUMIN 2.9 GM/DL (3.4-5.0); ALT (GPT) 40 U/L (12-78); AST (GOT) 126 U/L (15-37); BICARBONATE 18.5 MEQ/L (21.0-32.0); BLOOD UREA NITROGEN 33 MG/DL (7-18); CALCIUM 7.5 MG/DL (8.5-10.1); CHLORIDE 103 MEQ/L (98-107); CREATININE 3.08 MG/DL (0.60-1.30); GLOMERULAR FILTRATION RATE 22 ML/MIN (>89); GLUCOSE,RANDOM 88 MG/DL (74-106); MAGNESIUM 2.1 MG/DL (1.5-2.5); PHOSPHORUS 3.9 MG/DL (2.5-4.9); SODIUM (NA) 138 MEQ/L (136-145)
[2018-01-02 06:27] LABS: ALKALINE PHOSPHATASE 78 U/L (45-117); TOTAL PROTEIN 6.4 GM/DL (6.4-8.2)
--- NOTE | 2018-01-02 07:55 | HHI.CCPN ---
Subjective Remarks/Hospital Course Patient is a 52-year-old male with history of alcohol dependence, on chronic Coumadin for "abdominal vein thrombosis", history of hypertension who presented to the emergency department with complaints of increasing jaundice, increasing abdominal girth and vomiting jade blood multiple times over the last 2 days. Patient admits to being a heavy drinker he drinks about 1.75 L bottle hard liquor every 2 days. ER workup showed patient had a hemoglobin of 8.1, INR was 15.7. PTT 156.1, white count of 13.6 with 10% bands. Also sodium was noted to be 119, AST 439 ALT 115 and bilirubin of 7.6. A stat CT abdomen pelvis showed moderate ascites, probable cirrhosis and hepatic steatosis, splenomegaly, and gallstones. Patient had been ordered to receive 2 units of PRBC, and total 4 units of FFP. INR, Hb will be rechecked after this and additional FFP will be given accordingly. 10 mg vitamin K also ordered. Unfortunately hospital is out of [facility]. I evaluated the patient in the emergency department. He initially had an alcohol level of 135. At the time of my exam he is in moderate distress appears to be slightly tremulous. I have initiated CIWA protocol. I will also start its Rocephin for SBP prophylaxis. Patient had been started on IV Protonix infusion and octreotide which will be continued. Patient clinically also appears to have at least moderate ascites but I am unable to perform paracentesis due to elevated INR. 12/28: Currently resting in bed complaining of abdominal pain. Short of breath and tachypnea. Complaining of nausea currently. Remains on nasal cannula. Patient does not desire his mother's to have knowledge about his alcohol use. 12/29: Afebrile. Remains intubated post EGD yesterday due to worsening hypoxia. Currently on PSV trial 26/05 at 40%. Remains on dexmedetomidine drip and attempt to wean with alcohol use and likely progression to DTs. Banding of varices noted. Pentoxifylline 400 mg every 8 hours initiated with appropriate 12/30: Awake on dexmedetomidine drip at 1 mcg/kg/min. Following commands and attempting to write. Nods his head when states he feels the effects of alcohol withdrawals. Afebrile. Continues to leak from prior site of paracentesis. 12/31: Diminished urine output noted overnight. Increasing FiO2 requirement. Bladder pressures measured currently elevated around 25. Will place tube to suction and notify GI. Nephrology consult placed. Will need central line. 01/01: T-max 100. Currently 99. Meld score 34. Discriminant function is 34. Tamera alcohol scale score 7. Arousable the ventilator. FiO2 increased to 40- 60% overnight. 350 cc from NG tube overnight. SUBJECTIVE: 01/02: T-max 99.8. No bowel movement overnight. Abdomen remains distended. More ascites output from left lower quadrant previous paracentesis site. Arousable on the ventilator and follows commands on sedation vacation. Remains on PEEP of 12. FiO2 60%. Objective Vital Signs Date Time Temp Pulse Resp B/P (MAP) Pulse Ox O2 Delivery O2 Flow Rate FiO2 01/02/18 07:39 94 60 01/02/18 06:00 70 01/02/18 04:00 99.8 22 120/73 (89) 12/29/17 08:00 Mechanical Ventilator Intake and Output 01/02/18 01/02/18 01/03/18 08:00 16:00 00:00 Intake Total 2360 ml Output Total 1200 ml Balance 1160 ml Result Diagram: 01/02/18 0500 01/02/18 0500 Other Results Microbiology Date/Time Source Procedure Growth Status 12/31/17 10:51 Blood Peripheral Aerobic Blood Culture - Preliminary NO GROWTH IN 1 DAY Resulted 12/31/17 10:51 Blood Peripheral Anaerobic Blood Culture - Preliminary NO GROWTH IN 1 DAY Resulted 12/28/17 11:40 Fluid Peritoneal Fluid Gram Stain - Final Complete 12/28/17 11:40 Fluid Peritoneal Fluid Body Fluid Culture - Final NO GROWTH IN 72 HRS.--AEROBICALLY OR ... Complete 12/30/17 09:30 Sputum Endotracheal Gram Stain - Final Complete 12/30/17 09:30 Sputum Endotracheal Sputum Culture - Final HEAVY GROWTH NORMAL RESPIRATORY AISHWARYA Complete 12/30/17 08:45 Urine Catheterized Urine Urine Culture - Final NO GROWTH IN 48 HOURS. Complete Imaging Last Impressions Chest X-Ray 01/01/18 0600 Signed Impressions: CONCLUSION: Hazy opacity in both lungs left greater than right which appears mildly improve d from the prior study. Liver Ultrasound 12/31/17 0000 Signed Impressions: CONCLUSION: 1. Diffuse increased echogenicity throughout the liver suggestive of fatty inf iltration and/or hepatocellular disease. 2. Hepatomegaly. 3. Thickened gallbladder wall at 12 mm. No definite gallstones are seen. As ca n be seen with chronic gallbladder disease. Abdomen X-Ray 12/30/17 0000 Signed Impressions: Service Date/Time: Saturday, December 30, 2017 14:28 - CONCLUSION: Dobbhoff tube tip in the stomach Stefan Lew MD Aorta CTA 12/28/17 Signed Impressions: Service Date/Time: Thursday, December 28, 2017 21:00 - CONCLUSION: 1. Normal thoracic and abdominal aorta. No dissection/aneurysm seen. 2. Bibasilar consolidation and patchy densities in the upper lobes. 3. Hepatic steatosis with possible cirrhosis and moderate abdominal ascites. 4. Cholelithiasis. Aldair Francis MD Abdomen/Pelvis CT [id number] Signed Impressions: Service Date/Time: Wednesday, December 27, 2017 21:00 - CONCLUSION: 1. Diffusely abnormal liver likely secondary to hepatic steatosis and possible changes of cirrhosis. 2. Splenomegaly. This could be secondary to portal hypertension. 3. Moderate ascites. 4. Calcified gallstone. Stefan Grier MD Gall Bladder Ultrasound 12/27/17 Signed Impressions: Service Date/Time: Wednesday, December 27, 2017 21:16 - CONCLUSION: 1. Diffusely abnormal liver secondary to cirrhosis and hepatic steatosis. 2. Gallbladder wall thickening. This is nonspecific. This can be seen with hepatic disease. It also can be seen with cholecystitis in the correct clinical situation. Gallstones were not demonstrated on the ultrasound examination but are clearly present on the CT examination. Stefan Grier MD Procedures Paracentesis EGD Objective Remarks GENERAL: 52-year-old male lying in bed orotracheally intubated SKIN: Warm and dry. Jaundiced HEAD: Atraumatic. Normocephalic. EYES: Pupils equal and round about 3 mm bilaterally to 2 mm. Positive for scleral icterus. ENT: No nasal bleeding or discharge. Mucous membranes dry and pink. Oropharynx without erythema or exudate NECK: Trachea midline. No JVD. CARDIOVASCULAR: Regular rate and rhythm. S1, S2. No S4. Without murmur RESPIRATORY: Clear to auscultation. Breath sounds equal bilaterally. GASTROINTESTINAL: Abdomen distended abdomen nontender obese. There is drainage from the left lower quadrants with cloudy yellow ascitic fluid positive. Currently tympanic bowel sounds MUSCULOSKELETAL: Extremities -bilateral lower extreme 1+ pitting edema NEUROLOGICAL: Awake and alert. No obvious cranial nerve deficits. Motor grossly within normal limits. Follows commands on sedation Urinary Catheter: No Assessment to: Continue Vascular Central Line Catheter: Yes Assessment to: Continue Date of Insertion: December 31, 2017 Line: Central Venous Catheter Side: Left Location: Internal, Jugular A/P Assessment and Plan NEURO/PSYCH: Early alcohol withdrawal Alcohol dependence Currently on dexmedetomidine drip at 1 mcg/kg/min and propofol drip at 20 mcg/kg /min for sedation/analgesia while intubated Target RASS score of 0 on dexmedetomidine Previously on CIWA protocol with Lorazepam -Supplement thiamine, folic acid and MVI with vitamin bag 3 days and switch to IV thiamine on 12/31 Alcohol cessation encouraged RESP: Acute respiratory failure Likely OHS, STAS PRVC 16/500/1.5/ - Ventilator bundle -Nasal cannula oxygen to keep O2 sat >92% Albuterol/ipratropium aerosols every 6 hours while awake with albuterol aerosols every 2 hours as needed dyspnea -Aggressive pulmonary toilet Chest x-ray in a.m. 01/02 CV: History of hypertension -Normal saline IV fluids at 75 cc an hour while on pantoprazole and octreotide drips -Hold amlodipine 5 mg due to GI bleed and Spironolactone 50 mg p.o. daily Systolic hypertension As needed labetalol, Nitropaste and nicardipine drip to maintain systolic blood pressure less than 170 GI: Upper GI bleed secondary to esophageal varices Ascites/abdominal Liver cirrhosis/hepatic steatosis Cholelithiasis Elevated transaminases/total bilirubin Elevated lipase Elevated ammonia Hypoalbuminemia EGD 12/28 revealed -esophageal varices/nipple midesophagus with 3 bands noted. Portal gastropathy. Hiatal hernia. Recommend a repeat EGD in 1 week Dobbhoff tube placed currently to low suction per GIs recommendations Started on pentoxifylline 400 mg every 8 hours. Unfortunately cannot get an NG tube initiate when able to swallow. No NG tube currently due to varices -Continue pantoprazole infusion at 8 mg an hour, octreotide infusion at 25 mch/ hr Status post paracentesis 12/28-3 L. White blood cell count 80. CT abdomen/pelvis revealed no sequelae of pancreatitis. CT aorta revealed no signs of dissection or leakage. Start lactulose 30 every 6 hours. Add docusate sodium liquid 100 mg twice daily , senna 8.8 mg twice daily and polyethylene glycol 17 g twice daily. 1 dose of methylnaltrexone 12 mg subcu 1 now. Mineral oil 3 cc 1 now. -Dobbhoff placed 12/31 KUB revealed possible ileus. Repeat in a.m. 01/03 Continue metoclopramide 5 every 8 MELD score and discriminate function both 33. [place] alcoholic hepatitis 7 FEN//Endo: Hypocalcemia Hyponatremia -Monitor renal function closely. Careful hydration with normal saline at 125 cc /hr Sliding scale insulin Accu-Cheks with Novulog/low regimen every 6 hours to maintain euglycemia ID: Probable sepsis Noted staph epi blood culture 12/31+ Possible SBP Currently on ceftriaxone 1 g IV every 24 hours day #5 -switch to linezolid and piperacillin/tazobactam renally dose day #3 Pertinent cultures 12/31 -blood cultures 1 out of 4 staph epi. 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 01/01 Hemoglobin has remained stable. Currently 8.1 RENAL: Acute kidney injury -early hepatorenal syndrome Possible contrast nephropathy. Urine sodium 11. Urine creatinine elevated. Negative urine eosinophils. No hydronephrosis on CAT scan. Will check urine eosinophils and electrolytes Nephrology consultation appreciated. Clean furosemide 40 mg IV twice daily for creatinine currently 3.3 Elevated bladder pressures noted. Possible need decompression. Recheck laboratories this afternoon. No hydronephrosis MSK: Elevated BMI greater than 49 Weight loss encouraged PT evaluate and treat PROPH: -Bilateral lower extremity SCDs. IV pantoprazole infusion. Chemical DVT prophylaxis is contraindicated at this time LINES: -Utilize peripheral IVs, left IJ CVL day #2 placed 12/31 Critical Care: The total critical care time was 35 minutes. Time to perform other separately billable procedures was not included in the critical care time. Constantine Alvarado MD January 02, 2018 07:55
[2018-01-02 07:57] LABS: BANDS 43 % (0-6); BASOPHILS 2 % (0-2); CORRECTED NUCLEATED RBC 1 /100 WBC (0-0); LYMPHOCYTES 10 % (9-44); MONOCYTES 8 % (0-8); NEUTROPHIL # MANUAL DIFF 9.1 TH/MM3 (1.8-7.7); NUCLEATED RED BLOOD CELL 1 (0-0); POLYS (SEG NEUTROPHILS) 34 % (16-70)
[2018-01-02] MEDS ORDERED: MINERAL OIL EMULSION 55% PO ONE (08:00)
[2018-01-02] MEDS ORDERED: METHYLNALTREXONE BROMIDE 12 MG/0.6 ML VIAL SQ ONE (08:00)
[2018-01-02] MEDS: DEXMEDETOMIDINE INJ 1,000 MCG in SODIUM CHLOR 0.9% 250 ML INJ 240 ML IV PRN ×3 (08:25→22:31)
[2018-01-02] MEDS: LACTULOSE SYRUP 20 GM/30 ML CUP PO SCH ×4 (08:40→22:34)
[2018-01-02] MEDS: CHLORHEXIDINE 0.12% (ORAL KIT) 15 ML CUP MT SCH ×2 (08:40→22:33)
[2018-01-02] MEDS: DOCUSATE SODIUM 100 MG/10 ML UDC PO SCH ×2 (08:40→22:34)
[2018-01-02] MEDS: FUROSEMIDE 40 MG/4 ML VIAL IV PUSH SCH ×2 (08:41→18:00)
[2018-01-02] MEDS: SENNOSIDES SYRUP 8.8 MG/5 ML CUP PO SCH ×2 (08:41→22:34)
[2018-01-02] MEDS: THIAMINE INJ 100 MG in SODIUM CHLORIDE 0.9% INJ 100 ML IV SCH ×2 (08:41→09:19)
[2018-01-02] MEDS: SODIUM CHLORIDE 0.9% FLUSH 10 ML FLUSH IV FLUSH SCH ×3 (09:08→22:33)
[2018-01-02] MEDS: POLYETHYLENE GLYCOL 17 GM PKG PO SCH ×2 (09:09→22:34)
[2018-01-02] MEDS: ACETAMINOPHEN 1000 MG/100 ML 65 ML IV PRN ×2 (09:43→18:00)
--- NOTE | 2018-01-02 11:26 | RADRPT ---
EXAM DATE: 01/02/2018 11:20 AM EDT AGE/SEX: 52 years / Male INDICATIONS: Ileus CLINICAL DATA: This is the patient's initial encounter. Patient reports that signs and symptoms have been present for 4 - 6 days and indicates a pain score of Nonresponsive. MEDICAL/SURGICAL HISTORY: Hypertension. Gastroesophageal reflux disease. Cirrhosis. None. [place] [facility] [place]. . FINDINGS: 52 type nasoenteric catheter noted near the fundus of the stomach. Redemonstration of diffuse gaseous distention of the transverse colon as well as several loops of small bowel in the midabdomen. Air is noted extending to the rectum. There is no gross free air or pneumatosis. No significant abnormal ca lcifications. Degenerative changes of the lower lumbar spine. CONCLUSION: 1. Stable bowel gas pattern most consistent with adynamic ileus. Electronically signed by: Johnson Bell MD 01/02/2018 11:25 AM EDT
--- NOTE | 2018-01-02 11:33 | RADRPT ---
EXAM DATE: 01/02/2018 11:26 AM EDT AGE/SEX: 52 years / Male INDICATIONS: Respiratory failure CLINICAL DATA: This is the patient's initial encounter. Patient reports that signs and symptoms have been present for 4 - 6 days and indicates a pain score of Nonresponsive. MEDICAL/SURGICAL HISTORY: Hypertension. Gastroesophageal reflux disease. Cirrhosis. None. COMPARISON: C, CHEST SINGLE AP, 01/01/2018. . FINDINGS: Stable ETT and feeding-type nasoenteric catheter coursing beyond the GE junction. Left IJ central clif e with tip in the proximal SVC. Redemonstration of patchy airspace disease, left > right. Cardiomedia stinal contours are stable. Remainder of the exam is unchanged. CONCLUSION: 1. No significant interval change. 2. Persistent bilateral, left greater than right, patchy diffuse airspace disease. Electronically signed by: Johnson Bell MD 01/02/2018 11:32 AM EDT
--- NOTE | 2018-01-02 12:01 | HHI.GIFU ---
Subjective Remarks Pt on sedation, Precedex and Propofol Remains orally intubated Still has had no BM, abdomen distended and firm STAT KUB has been ordered by Dr. Alvarado Remains with Dobhoff to ANGELA (Sandra Fernandes) Objective Vitals I&O Vital Signs Date Time Temp Pulse Resp B/P (MAP) Pulse Ox O2 Delivery O2 Flow Rate FiO2 01/02/18 11:04 90 60 01/02/18 10:00 72 01/02/18 08:00 70 01/02/18 08:00 60 01/02/18 08:00 100.3 70 22 105/53 (70) 94 01/02/18 07:39 94 60 01/02/18 06:00 70 01/02/18 04:00 70 01/02/18 04:00 60 01/02/18 04:00 99.8 70 22 120/73 (89) 92 01/02/18 03:42 93 60 01/02/18 02:00 69 01/02/18 00:00 60 01/02/18 00:00 71 01/02/18 00:00 99.5 71 23 114/70 (85) 94 01/01/18 23:25 95 60 01/01/18 22:00 71 01/01/18 20:00 99.5 71 24 119/66 (83) 92 01/01/18 20:00 71 01/01/18 20:00 60 01/01/18 19:46 92 60 01/01/18 18:00 70 01/01/18 16:00 99.8 72 21 113/65 (81) 90 01/01/18 16:00 72 01/01/18 16:00 60 01/01/18 15:31 90 60 01/01/18 14:00 72 01/01/18 12:00 72 01/01/18 12:00 99.1 72 23 117/68 (84) 90 01/01/18 12:00 50 I/O 01/01/18 01/01/18 01/01/18 01/02/18 01/02/18 01/02/18 07:00 15:00 23:00 07:00 15:00 23:00 Intake Total 2500 ml 601 ml 1500 ml 2360 ml 1316 ml Output Total 950 ml 2050 ml 1200 ml Balance 1550 ml 601 ml -550 ml 1160 ml 1316 ml IV Total 2500 ml 601 ml 1500 ml 2240 ml 1316 ml Other 120 ml Output Urine Total 625 ml 1350 ml 1000 ml Gastric Drainage Total 325 ml 500 ml Drainage Total 200 ml 200 ml # Bowel Movements 0 0 0 Laboratory Laboratory Tests Test 01/02/18 05:00 White Blood Count 11.8 Red Blood Count 2.90 Hemoglobin 8.2 Hematocrit 25.7 Mean Corpuscular Volume 88.7 Mean Corpuscular Hemoglobin 28.3 Mean Corpuscular Hemoglobin Concent 31.9 Red Cell Distribution Width 25.7 Platelet Count 252 Mean Platelet Volume 8.3 CBC Comment AUTO DIFF Differential Total Cells Counted 100 Neutrophils % (Manual) 34 Band Neutrophils % 43 Lymphocytes % 10 Monocytes % 8 Eosinophils % 3 Basophils % 2 Neutrophils # (Manual) 9.1 Nucleated Red Blood Cells 1 Differential Comment FINAL DIFF MANUAL Platelet Estimate NORMAL Platelet Morphology Comment NORMAL Prothrombin Time 16.0 Prothromb Time International Ratio 1.6 Activated Partial Thromboplast Time 35.5 Blood Urea Nitrogen 33 Creatinine 3.08 Random Glucose 88 Total Protein 6.4 Albumin 2.9 Calcium Level 7.5 Phosphorus Level 3.9 Magnesium Level 2.1 Alkaline Phosphatase 78 Aspartate Amino Transf (AST/SGOT) 126 Alanine Aminotransferase (ALT/SGPT) 40 Total Bilirubin 18.0 Sodium Level 138 Potassium Level 3.9 Chloride Level 103 Carbon Dioxide Level 18.5 Anion Gap 17 Estimat Glomerular Filtration Rate 22 Ammonia 41 Date/Time Source Procedure Growth Status 01/02/18 08:38 Blood Peripheral Aerobic Blood Culture Pending Received 01/02/18 08:38 Blood Peripheral Anaerobic Blood Culture Pending Received 12/28/17 11:40 Fluid Peritoneal Fluid Gram Stain - Final Complete 12/28/17 11:40 Fluid Peritoneal Fluid Body Fluid Culture - Final NO GROWTH IN 72 HRS.--AEROBICALLY OR ... Complete 12/30/17 09:30 Sputum Endotracheal Gram Stain - Final Complete 12/30/17 09:30 Sputum Endotracheal Sputum Culture - Final HEAVY GROWTH NORMAL RESPIRATORY AISHWARYA Complete 12/30/17 08:45 Urine Catheterized Urine Urine Culture - Final NO GROWTH IN 48 HOURS. Complete Imaging Last Impressions Chest X-Ray 01/02/18 0000 Signed Impressions: CONCLUSION: 1. No significant interval change. 2. Persistent bilateral, left greater than right, patchy diffuse airspace dise ase. Abdomen X-Ray 5/24/18 0000 Signed Impressions: CONCLUSION: 1. Stable bowel gas pattern most consistent with adynamic ileus. Liver Ultrasound 12/31/17 Signed Impressions: CONCLUSION: 1. Diffuse increased echogenicity throughout the liver suggestive of fatty inf iltration and/or hepatocellular disease. 2. Hepatomegaly. 3. Thickened gallbladder wall at 12 mm. No definite gallstones are seen. As ca n be seen with chronic gallbladder disease. Aorta CTA 12/28/17 Signed Impressions: Service Date/Time: Thursday, December 28, 2017 21:00 - CONCLUSION: 1. Normal thoracic and abdominal aorta. No dissection/aneurysm seen. 2. Bibasilar consolidation and patchy densities in the upper lobes. 3. Hepatic steatosis with possible cirrhosis and moderate abdominal ascites. 4. Cholelithiasis. Aldair Francis MD Abdomen/Pelvis CT [id number] Signed Impressions: Service Date/Time: Wednesday, December 27, 2017 21:00 - CONCLUSION: 1. Diffusely abnormal liver likely secondary to hepatic steatosis and possible changes of cirrhosis. 2. Splenomegaly. This could be secondary to portal hypertension. 3. Moderate ascites. 4. Calcified gallstone. Stefan Grier MD Gall Bladder Ultrasound 12/27/17 Signed Impressions: Service Date/Time: Wednesday, December 27, 2017 21:16 - CONCLUSION: 1. Diffusely abnormal liver secondary to cirrhosis and hepatic steatosis. 2. Gallbladder wall thickening. This is nonspecific. This can be seen with hepatic disease. It also can be seen with cholecystitis in the correct clinical situation. Gallstones were not demonstrated on the ultrasound examination but are clearly present on the CT examination. 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 Splenomegaly. This could be secondary to portal hypertension. Moderate ascites. US gallbladder (12/27) Diffusely abnormal liver secondary to cirrhosis and hepatic steatosis. Gallbladder wall thickening, nonspecific. 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 secondary to Potomania and emesis EGD (12/28) --> Esophageal varices grade - 3 columns a nipple in midesophgus was seen, possible prior banding or source of bleeding one band applied above it. Additional band were applied under the level of the above area no active bleeding. Retroflexed views revealed a hiatal hernia Paracentesis on 12/28/17 3000 ml of fluid removed, cx with no growth at 72 hours. Cytology negative for malignant cells. (01/02) Pt remains in ICU, sedated on Propofol and Precedex and mechanically ventilated via ETT. on Dayron for BP support. Remains on Protonix and Octreotide gtt. Coagulopathy- INR 1.6 LFTs trending down. T bili remains significantly elevated but trending down currently 18. On Pentoxifylline. Pt still spiking fevers, no steroids indicated at this time. Abdomen remains distended and firm, no BM. Dobbhoff to low suction. KUB (01/02) --> Stable bowel gas pattern most consistent with adynamic ileus. On Reglan q8hrs. Plan: Decompressive colonoscopy today Soap suds enema x 2 Dobbhoff to light suction Continue Reglan Continue bowel regimen Monitor labs Pentoxifylline Octreotide gtt Protonix gtt EGD in one week Supportive care Further recommendations based on clinical course and results of above Pt has been seen and examined by myself and Dr. Crews and this note is written on his behalf (Sandra Fernandes) Physician Comments Patient seen and examined Agree with above Continue with current supportive care Monitor labs Decompression colonoscopy later today (John Crews MD) Sandra Fernandes January 02, 2018 12:01 John Crews MD January 02, 2018 21:49
[2018-01-02] MEDS: PHENYLEPHRINE INJ 160 MG in DEXTROSE 5% IN WATE 500 ML INJ 484 ML IV PRN ×2 (14:46)
--- NOTE | 2018-01-02 18:21 | HHI.NPPN ---
Subjective History of Present Illness 52-year-old male, Alcoholic hepatitis/cirrhosis received contrast study and acute renal failure Objective Data Data 01/02/18 01/03/18 19:00 07:00 Intake Total 2166 ml Balance 2166 ml IV Total 2166 ml Vital Signs Date Time Temp Pulse Resp B/P (MAP) Pulse Ox O2 Delivery O2 Flow Rate FiO2 01/02/18 18:00 72 01/02/18 17:19 89 60 01/02/18 16:00 100.5 72 21 102/59 (73) 90 01/02/18 16:00 60 01/02/18 16:00 72 01/02/18 14:46 70 109/64 01/02/18 14:00 71 01/02/18 13:54 89 60 01/02/18 12:00 100.3 70 20 116/68 (84) 89 01/02/18 12:00 60 01/02/18 12:00 70 01/02/18 11:04 90 60 01/02/18 10:00 72 01/02/18 08:00 70 01/02/18 08:00 60 01/02/18 08:00 100.3 70 22 105/53 (70) 94 01/02/18 07:39 94 60 01/02/18 06:00 70 01/02/18 04:00 70 01/02/18 04:00 60 01/02/18 04:00 99.8 70 22 120/73 (89) 92 01/02/18 03:42 93 60 01/02/18 02:00 69 01/02/18 00:00 60 01/02/18 00:00 71 01/02/18 00:00 99.5 71 23 114/70 (85) 94 01/01/18 23:25 95 60 01/01/18 22:00 71 01/01/18 20:00 99.5 71 24 119/66 (83) 92 01/01/18 20:00 71 01/01/18 20:00 60 01/01/18 19:46 92 60 -: 01/02/18 0500 01/02/18 0500 Microbiology 01/02/18 Aerobic Blood Culture, Received Pending 01/02/18 Anaerobic Blood Culture, Received Pending 01/02/18 Aerobic Blood Culture, Received Pending 01/02/18 Anaerobic Blood Culture, Received Pending Physical Exam General Appearance: Well Developed, Well Nourished Neck Neck Exam: Neck Supple Pulmonary Resp Exam: Clear Bilaterally, Diminished Breath Sounds Cardiology CV Exam: Regular, Normal Sinus Rhythm Gastrointestinal/Abdomen GI Exam: Soft, Distended Extremeties Extremities Exam: Moderate Edema Assessment/Plan Problem List: (1) Acute renal failure ICD Codes: N17.9 - Acute kidney failure, unspecified Plan: Patient has liver cirrhosis and possible hepatorenal syndrome is considered, he did receive contrast studies as well, His creatinine slightly better UOP 2.3 L His urine output picked up with albumin and Lasix Continue to monitor CMP Liver and Kidney function for decompressive colonoscopy Avoid nephrotoxins or dye studies (2) Upper GI bleed ICD Codes: K92.2 - Gastrointestinal hemorrhage, unspecified Plan: GI is following (3) Alcoholic cirrhosis ICD Codes: K70.30 - Alcoholic cirrhosis of liver without ascites Plan: Followed by GI (4) Coagulopathy ICD Codes: D68.9 - Coagulation defect, unspecified Plan: Patient has received blood product, FFP and PRBCs (5) Ascites ICD Codes: R18.8 - Other ascites Plan: Due to alcoholic cirrhosis (6) Hyponatremia ICD Codes: E87.1 - Hypo-osmolality and hyponatremia Plan: Sodium has improved Problem Qualifiers (1) Acute renal failure: Qualified Codes: N17.9 - Acute kidney failure, unspecified (2) Alcoholic cirrhosis: Qualified Codes: K70.31 - Alcoholic cirrhosis of liver with ascites (3) Ascites: Qualified Codes: K70.31 - Alcoholic cirrhosis of liver with ascites Ciro Elder MD January 02, 2018 18:21
[2018-01-02] MEDS: OCTREOTIDE INJ 500 MCG in SODIUM CHLORID 0.9% 500 ML INJ 499.5 ML IV SCH (19:52)
[2018-01-02] MEDS ORDERED: SODIUM CHLORIDE 23.4% INJ 11 MEQ, SODIUM ACETATE INJ 59 MEQ, POTASSIUM CHLORIDE INJ 40 ... IV-CENTRAL SCH ×9 (20:00)
[2018-01-02 21:04] LABS: BICARBONATE 14.7 MEQ/L (21.0-32.0); CALCIUM 7.6 MG/DL (8.5-10.1); CREATININE 3.41 MG/DL (0.60-1.30)
--- NOTE | 2018-01-02 21:56 | PD.PROCEDR ---
GI Procedure PROCEDURE PERFORMED Colonoscopy with decompression of the colon INDICATION FOR PROCEDURE Ileus patient needing decompression PROCEDURE: The procedure, risks and benefits were discussed with Patient/POA and informed consent was obtained. Anesthesia sedated Patient with Diprivan. Patient was placed in the left lateral decubitus position. Colonoscopy: The Pentax videoscope was introduced through the rectum and advanced to cecum where the ileocecal valve and appendiceal orifice were identified. Retroflexion was performed in the rectum. Colonic prep was poor FINDINGS: Colonic withdrawal time greater than 6 minutes. As the scope was slowly withdrawn colonic mucosa was carefully inspected colonic mucosa appeared to be unremarkable for the most part diverticulosis was noted mostly in the sigmoid A guidewire was placed and over that a decompression tube was pushed into place and secured to the inner thigh ESTIMATED BLOOD LOSS: None SPECIMENS REMOVED: None COMPLICATIONS: None IMPRESSION: Ileus PLAN: Status post decompression KUB in the morning John Crews MD January 02, 2018 21:56
[2018-01-02] MEDS: SODIUM CHLORIDE 23.4% INJ 5.5 MEQ, SODIUM ACETATE INJ 29.5 MEQ, POTASSIUM CHLORIDE INJ ... IV-CENTRAL SCH ×9 (22:33)
[2018-01-03] VITALS (20 sets, daily range): BP systolic 89–107; BP diastolic 50–60; PULSE 67–78; RESP 20–30; TEMP 96.8–100.2; O2SAT 92–98
[2018-01-03] MEDS: SODIUM CHLOR 0.9% 1000 ML INJ 1,000 ML IV SCH (00:50)
[2018-01-03] MEDS: PIPERACIL-TAZO 2.25 GM PREMIX 50 ML IV SCH ×4 (03:10→19:34)
[2018-01-03] MEDS: ALBUMIN 25% INJ 100 ML IV SCH ×3 (03:10→17:11)
[2018-01-03] MEDS: RESP: ALBUTEROL 2.5 MG/IPRATROPIUM 0.5 MG NEB (SCH) NEB ×6 (03:44→23:11)
[2018-01-03] MEDS: CHLORHEXIDINE GLUCONATE 2 % 1 PACK (2 CLOTHS) TOP SCH (04:14)
[2018-01-03] MEDS: PENTOXIFYLLINE 400 MG CONTROLLED RELEASE TAB PO SCH ×3 (04:15→19:19)
--- NOTE | 2018-01-03 04:50 | RADRPT ---
EXAM DATE: 01/03/2018 4:30 AM EDT AGE/SEX: 52 years / Male INDICATIONS: Respiratory failure. CLINICAL DATA: This is the patient's subsequent encounter. Patient reports that signs and symptoms h ave been present for 1 week and indicates a pain score of Nonresponsive. MEDICAL/SURGICAL HISTORY: . Hypertension. Gastroesophageal reflux disease. Cirrhosis None. COMPARISON: C, CHEST SINGLE AP, 01/02/2018. . FINDINGS: ET tube and NG tube/feeding tube are well placed. The heart size is within normal limits. The lungs a re grossly clear. CONCLUSION: Lungs are grossly clear. Electronically signed by: Stefan Grier MD 01/03/2018 4:49 AM EDT
--- NOTE | 2018-01-03 04:51 | RADRPT ---
EXAM DATE: 01/03/2018 4:37 AM EDT AGE/SEX: 52 years / Male INDICATIONS: Ileus post decompression CLINICAL DATA: This is the patient's initial encounter. Patient reports that signs and symptoms have been present for 1 day and indicates a pain score of Nonresponsive. MEDICAL/SURGICAL HISTORY: . Hypertension. Gastroesophageal reflux disease. Cirrhosis None. COMPARISON: [facility] [place], ABDOMEN KUB ONLY, 01/02/2018. . FINDINGS: There is a feeding tube with its tip in the stomach. There appears to be a tube seen throughout the colon. Significant bowel dilatation is not seen. Free air is not seen. CONCLUSION: No dilated bowel. Electronically signed by: Stefan Grier MD 01/03/2018 4:50 AM EDT
[2018-01-03] MEDS: INSULIN NovoLIN REGULAR SUPPLEMENTAL SCALE SQ SCH ×6 (05:00→21:14)
[2018-01-03 05:20] LABS: INTERNATIONAL NORMALIZED RATIO 1.7 RATIO; PROTHROMBIN TIME - PATIENT 16.8 SEC (9.8-11.6)
[2018-01-03 05:33] LABS: AUTOMATED NEUTROPHIL # 7.1 TH/MM3 (1.8-7.7); BASOPHIL # 0.2 TH/MM3 (0-0.2); BASOPHIL % 2.4 % (0.0-2.0); EOSINOPHIL # 0.3 TH/MM3 (0-0.4); EOSINOPHIL % 2.7 % (0.0-4.0); HEMATOCRIT 23.5 % (39.0-51.0); HEMOGLOBIN 7.4 GM/DL (13.0-17.0); LYMPH % 7.7 % (9.0-44.0); LYMPHOCYTE # 0.7 TH/MM3 (1.0-4.8); MEAN CELL VOLUME 89.6 FL (80.0-100.0); MEAN CORPUSCULAR HEMOGLOBIN 28.1 PG (27.0-34.0); MEAN CORPUSCULAR HGB CONC 31.3 % (32.0-36.0); MEAN PLATELET VOLUME 8.3 FL (7.0-11.0); MONOCYTE # 1.2 TH/MM3 (0-0.9); NEUT % 74.2 % (16.0-70.0); PLATELET COUNT 234 TH/MM3 (150-450); RED BLOOD COUNT 2.63 MIL/MM3 (4.50-5.90); RED CELL DISTRIBUTION WIDTH 27.3 % (11.6-17.2); WHITE BLOOD COUNT 9.6 TH/MM3 (4.0-11.0)
[2018-01-03 05:38] LABS: ALBUMIN 2.7 GM/DL (3.4-5.0); AST (GOT) 100 U/L (15-37); BICARBONATE 15.8 MEQ/L (21.0-32.0); BLOOD UREA NITROGEN 42 MG/DL (7-18); CALCIUM 7.5 MG/DL (8.5-10.1); CHLORIDE 106 MEQ/L (98-107); CREATININE 3.49 MG/DL (0.60-1.30); GLOMERULAR FILTRATION RATE 19 ML/MIN (>89); GLUCOSE,RANDOM 167 MG/DL (74-106); MAGNESIUM 2.2 MG/DL (1.5-2.5); SODIUM (NA) 136 MEQ/L (136-145)
[2018-01-03 05:39] LABS: ALT (GPT) 33 U/L (12-78)
[2018-01-03 05:41] LABS: ALKALINE PHOSPHATASE 68 U/L (45-117); PHOSPHORUS 4.2 MG/DL (2.5-4.9); TOTAL BILIRUBIN ADULT 16.5 MG/DL (0.2-1.0)
[2018-01-03] MEDS: ARTIFICIAL TEARS OPTH SOLN 15 ML BTL EACH EYE SCH ×3 (05:41→23:00)
[2018-01-03] MEDS: METOCLOPRAMIDE HCL 10 MG/2 ML VIAL IV PUSH SCH ×3 (05:50→21:14)
[2018-01-03] MEDS: LINEZOLID 600 MG PREMIX 300 ML IV SCH ×2 (05:51→18:01)
[2018-01-03] MEDS: PROPOFOL 1000 MG/100 ML INJ 100 ML IV PRN ×3 (05:58→18:10)
[2018-01-03] MEDS: DEXMEDETOMIDINE INJ 1,000 MCG in SODIUM CHLOR 0.9% 250 ML INJ 240 ML IV PRN (06:26)
--- NOTE | 2018-01-03 07:27 | HHI.CCPN ---
Subjective Remarks/Hospital Course Patient is a 52-year-old male with history of alcohol dependence, on chronic Coumadin for "abdominal vein thrombosis", history of hypertension who presented to the emergency department with complaints of increasing jaundice, increasing abdominal girth and vomiting jade blood multiple times over the last 2 days. Patient admits to being a heavy drinker he drinks about 1.75 L bottle hard liquor every 2 days. ER workup showed patient had a hemoglobin of 8.1, INR was 15.7. PTT 156.1, white count of 13.6 with 10% bands. Also sodium was noted to be 119, AST 439 ALT 115 and bilirubin of 7.6. A stat CT abdomen pelvis showed moderate ascites, probable cirrhosis and hepatic steatosis, splenomegaly, and gallstones. Patient had been ordered to receive 2 units of PRBC, and total 4 units of FFP. INR, Hb will be rechecked after this and additional FFP will be given accordingly. 10 mg vitamin K also ordered. Unfortunately hospital is out of [facility]. I evaluated the patient in the emergency department. He initially had an alcohol level of 135. At the time of my exam he is in moderate distress appears to be slightly tremulous. I have initiated CIWA protocol. I will also start its Rocephin for SBP prophylaxis. Patient had been started on IV Protonix infusion and octreotide which will be continued. Patient clinically also appears to have at least moderate ascites but I am unable to perform paracentesis due to elevated INR. 12/28: Currently resting in bed complaining of abdominal pain. Short of breath and tachypnea. Complaining of nausea currently. Remains on nasal cannula. Patient does not desire his mother's to have knowledge about his alcohol use. 12/29: Afebrile. Remains intubated post EGD yesterday due to worsening hypoxia. Currently on PSV trial 26/05 at 40%. Remains on dexmedetomidine drip and attempt to wean with alcohol use and likely progression to DTs. Banding of varices noted. Pentoxifylline 400 mg every 8 hours initiated with appropriate 12/30: Awake on dexmedetomidine drip at 1 mcg/kg/min. Following commands and attempting to write. Nods his head when states he feels the effects of alcohol withdrawals. Afebrile. Continues to leak from prior site of paracentesis. 12/31: Diminished urine output noted overnight. Increasing FiO2 requirement. Bladder pressures measured currently elevated around 25. Will place tube to suction and notify GI. Nephrology consult placed. Will need central line. 01/01: T-max 100. Currently 99. Meld score 34. Discriminant function is 34. Tamera alcohol scale score 7. Arousable the ventilator. FiO2 increased to 40- 60% overnight. 350 cc from NG tube overnight. 01/02: T-max 99.8. No bowel movement overnight. Abdomen remains distended. More ascites output from left lower quadrant previous paracentesis site. Arousable on the ventilator and follows commands on sedation vacation. Remains on PEEP of 12. FiO2 60%. SUBJECTIVE: 01/03: Patient remains intubated sedated very critical. FiO2 had to be increased to 70%. I have increase PEEP from 12-14. Chest x-ray remains unchanged. T-max 100.5. Urine output 1.3 L. BUN 42 creatinine 3.5 hemoglobin 7.4. Bedside ultrasound shows at least moderate ascites. Plan for thoracentesis for fluid removal and also will help with vent dynamic Objective Vital Signs Date Time Temp Pulse Resp B/P (MAP) Pulse Ox O2 Delivery O2 Flow Rate FiO2 01/03/18 06:00 69 01/03/18 04:00 99.8 21 89/53 (65) 96 01/03/18 04:00 70 Intake and Output 01/03/18 01/03/18 01/04/18 08:00 16:00 00:00 Intake Total 1036 ml Output Total 1150 ml Balance -114 ml Result Diagram: 01/03/18 0439 01/03/18 0439 Imaging Last Impressions Chest X-Ray 01/01/18 0600 Signed Impressions: CONCLUSION: Hazy opacity in both lungs left greater than right which appears mildly improve d from the prior study. Liver Ultrasound 12/31/17 0000 Signed Impressions: CONCLUSION: 1. Diffuse increased echogenicity throughout the liver suggestive of fatty inf iltration and/or hepatocellular disease. 2. Hepatomegaly. 3. Thickened gallbladder wall at 12 mm. No definite gallstones are seen. As ca n be seen with chronic gallbladder disease. Abdomen X-Ray 12/30/17 0000 Signed Impressions: Service Date/Time: Saturday, December 30, 2017 14:28 - CONCLUSION: Dobbhoff tube tip in the stomach Stefan Lew MD Aorta CTA 12/28/17 0000 Signed Impressions: Service Date/Time: Thursday, December 28, 2017 21:00 - CONCLUSION: 1. Normal thoracic and abdominal aorta. No dissection/aneurysm seen. 2. Bibasilar consolidation and patchy densities in the upper lobes. 3. Hepatic steatosis with possible cirrhosis and moderate abdominal ascites. 4. Cholelithiasis. Aldair Francis MD Abdomen/Pelvis CT [id number]/27/171921 Signed Impressions: Service Date/Time: Wednesday, December 27, 2017 21:00 - CONCLUSION: 1. Diffusely abnormal liver likely secondary to hepatic steatosis and possible changes of cirrhosis. 2. Splenomegaly. This could be secondary to portal hypertension. 3. Moderate ascites. 4. Calcified gallstone. Stefan Grier MD Gall Bladder Ultrasound 12/27/17 0000 Signed Impressions: Service Date/Time: Wednesday, December 27, 2017 21:16 - CONCLUSION: 1. Diffusely abnormal liver secondary to cirrhosis and hepatic steatosis. 2. Gallbladder wall thickening. This is nonspecific. This can be seen with hepatic disease. It also can be seen with cholecystitis in the correct clinical situation. Gallstones were not demonstrated on the ultrasound examination but are clearly present on the CT examination. Stefan Grier MD Procedures Paracentesis EGD Objective Remarks GENERAL: 52-year-old male lying in bed orotracheally intubated SKIN: Warm and dry. Jaundiced HEAD: Atraumatic. Normocephalic. EYES: Pupils equal and round about 3 mm bilaterally to 2 mm. Positive for scleral icterus. ENT: No nasal bleeding or discharge. Mucous membranes dry and pink. Orotracheally intubated NECK: Trachea midline. Cannot appreciate JVD due to body habitus CARDIOVASCULAR: Regular rate and rhythm. S1, S2. No S4. Without murmur RESPIRATORY: Clear to auscultation. Breath sounds equal bilaterally. GASTROINTESTINAL: Abdomen distended abdomen nontender obese. There is drainage from the left lower quadrants with cloudy yellow ascitic fluid positive. Ultrasound shows moderate ascites MUSCULOSKELETAL: Extremities -bilateral lower extreme 1+ pitting edema NEUROLOGICAL: Sedated but wakes up easily. No obvious cranial nerve deficits. Motor grossly within normal limits. Follows commands on sedation Date of Insertion: December 31, 2017 Line: Central Venous Catheter Side: Left Location: Internal, Jugular A/P Assessment and Plan NEURO/PSYCH: Alcohol withdrawal Alcohol dependence Currently on dexmedetomidine drip at 1 mcg/kg/min and propofol drip at 20 mcg/kg /min for sedation/analgesia while intubated Discontinue Precedex as the patient is not close to getting extubated, severely hypoxemic Previously on CIWA protocol with Lorazepam. Will place on scheduled Ativan 1 mg every 12 to reduce IV sedation -Supplement thiamine, folic acid and MVI with vitamin bag 3 days and switch to IV thiamine on 12/31 Alcohol cessation encouraged RESP: Acute hypoxemic respiratory failure Likely OHS, STAS PRVC 16/500/1.5/ -Increase PEEP to 14 and attempt weaning FiO2 Ventilator bundle -Nasal cannula oxygen to keep O2 sat >92% Albuterol/ipratropium aerosols every 6 hours, albuterol aerosols every 2 hours as needed dyspnea -Aggressive pulmonary toilet Chest x-ray in a.m. 01/03, no acute changes CV: History of hypertension -Holding amlodipine 5 mg due to GI bleed and Spironolactone 50 mg p.o. daily Systolic hypertension As needed labetalol, Nitropaste and nicardipine drip to maintain systolic blood pressure less than 170 -Diuresis with Lasix per nephrology GI: Upper GI bleed secondary to esophageal varices Ascites/abdominal Liver cirrhosis/hepatic steatosis Cholelithiasis Elevated transaminases/total bilirubin Elevated lipase Elevated ammonia Hypoalbuminemia EGD 12/28 revealed -esophageal varices/nipple midesophagus with 3 bands noted. Portal gastropathy. Hiatal hernia. Recommend a repeat EGD in 1 week Dobbhoff tube placed currently to low suction per GIs recommendations Started on pentoxifylline 400 mg every 8 hours. Unfortunately cannot get an NG tube initiate when able to swallow. No NG tube currently due to varices -Continue pantoprazole infusion at 8 mg an hour, octreotide infusion at 25 mcg/ hr. will need to address with GI at the duration Status post paracentesis 12/28-3 L. White blood cell count 80. Repeat paracentesis today 01/03/2018 CT abdomen/pelvis revealed no sequelae of pancreatitis. CT aorta revealed no signs of dissection or leakage. Lactulose 30 every 6 hours, docusate sodium liquid 100 mg twice daily, senna 8.8 mg twice daily and polyethylene glycol 17 g twice daily. 1 dose of methylnaltrexone 12 mg subcu 1 now. Mineral oil 3 cc 1 now. -Dobbhoff placed 12/31 KUB revealed possible ileus. Repeat in a.m. 01/03, did not reveal ileus Continue metoclopramide 5 every 8 MELD score and discriminate function both 33. Tamera alcoholic hepatitis 7 FEN//Endo: Hypocalcemia Hyponatremia -Monitor renal function closely. Sliding scale insulin Accu-Cheks with Novulog/low regimen every 6 hours to maintain euglycemia ID: Probable sepsis Noted staph epi blood culture 12/31+ Possible SBP Linezolid and piperacillin/tazobactam renally dose day #4 Pertinent cultures 12/31 -blood cultures 1 out of 4 staph epi. 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 Hb 7.4 INR 1.7 today. -Give 1U FFP to facilitate paracentesis -Serially monitor INR, phytonadione 5 mg given 12/31 RENAL: Acute kidney injury -early hepatorenal syndrome Possible contrast nephropathy. Urine sodium 11. Urine creatinine elevated. Negative urine eosinophils. No hydronephrosis on CAT scan. Nephrology consultation appreciated. Furosemide 40 mg IV twice daily for creatinine currently 3.3 Elevated bladder pressures noted. Paracentesis should help Recheck laboratories this afternoon. No hydronephrosis MSK: Elevated BMI greater than 49 Weight loss PT evaluate and treat PROPH: -Bilateral lower extremity SCDs. IV pantoprazole infusion. Chemical DVT prophylaxis is contraindicated at this time LINES: -Utilize peripheral IVs, left IJ CVL day #3 placed 12/31 Critical Care: The total critical care time was 35 minutes. Time to perform other separately billable procedures was not included in the critical care time. Chelsie Aviles MD January 03, 2018 07:27
[2018-01-03] MEDS ORDERED: ALBUMIN 25% INJ 100 ML IV ONE (07:30)
[2018-01-03] MEDS: CHLORHEXIDINE 0.12% (ORAL KIT) 15 ML CUP MT SCH ×2 (08:00→20:50)
[2018-01-03] MEDS: LORazepam 1 MG TAB PO SCH ×2 (08:19→19:34)
[2018-01-03] MEDS: PANTOPRAZOLE INJ 80 MG in SODIUM CHLORIDE 0.9% INJ 100 ML IV SCH ×2 (08:19→17:36)
[2018-01-03] MEDS: DOCUSATE SODIUM 100 MG/10 ML UDC PO SCH ×2 (08:19→19:34)
[2018-01-03] MEDS: FUROSEMIDE 40 MG/4 ML VIAL IV PUSH SCH ×2 (08:19→17:11)
[2018-01-03] MEDS: LACTULOSE SYRUP 20 GM/30 ML CUP PO SCH ×4 (08:19→19:34)
[2018-01-03] MEDS: POLYETHYLENE GLYCOL 17 GM PKG PO SCH ×2 (08:19→19:35)
[2018-01-03] MEDS: SODIUM CHLORIDE 0.9% FLUSH 10 ML FLUSH IV FLUSH SCH ×3 (08:20→19:37)
[2018-01-03] MEDS: THIAMINE INJ 100 MG in SODIUM CHLORIDE 0.9% INJ 100 ML IV SCH (08:20)
[2018-01-03 08:55] LABS: BANDS 15 % (0-6); BASOPHILS 1 % (0-2); LYMPHOCYTES 4 % (9-44); MONOCYTES 7 % (0-8); NEUTROPHIL # MANUAL DIFF 8.2 TH/MM3 (1.8-7.7); POLYS (SEG NEUTROPHILS) 70 % (16-70)
[2018-01-03 08:56] LABS: ACANTHOCYTES 1+ (NORMAL); POLYCHROMASIA 2.5 % (0.0-1.9); TOXIC GRANULATION 1+ (NORMAL)
[2018-01-03 08:57] LABS: OVALOCYTES 1+ (NORMAL)
[2018-01-03] MEDS: SENNOSIDES SYRUP 8.8 MG/5 ML CUP PO SCH ×2 (09:00→19:35)
[2018-01-03] MEDS: SODIUM CHLORIDE 23.4% INJ 5.5 MEQ, SODIUM ACETATE INJ 29.5 MEQ, POTASSIUM CHLORIDE INJ ... IV-CENTRAL SCH ×18 (10:18→21:15)
--- NOTE | 2018-01-03 13:33 | HHI.GIFU ---
Subjective Remarks Pt is still on the vent, distended firm abd, no bleeding reported, No BM documented. Per nurse pt received 2 enemas yesterday that resulted with some stools (NafisaRosemarie fuentes DENA) Objective Vitals I&O Vital Signs Date Time Temp Pulse Resp B/P (MAP) Pulse Ox O2 Delivery O2 Flow Rate FiO2 01/03/18 12:00 78 01/03/18 12:00 98.8 78 30 104/57 (73) 95 01/03/18 12:00 70 01/03/18 11:31 95 60 01/03/18 10:00 72 01/03/18 08:00 70 01/03/18 08:00 99.8 70 22 92/50 (64) 94 01/03/18 08:00 70 01/03/18 07:44 95 60 01/03/18 06:00 69 01/03/18 04:00 99.8 70 21 89/53 (65) 96 01/03/18 04:00 70 01/03/18 04:00 70 01/03/18 03:44 94 70 01/03/18 02:00 67 01/03/18 00:00 68 01/03/18 00:00 70 01/03/18 00:00 100.2 68 20 107/60 (76) 95 01/02/18 23:48 94 70 01/02/18 22:00 68 01/02/18 20:11 92 70 01/02/18 20:00 70 01/02/18 20:00 100.3 66 20 111/61 (78) 90 01/02/18 20:00 66 01/02/18 18:00 72 01/02/18 17:19 89 60 01/02/18 16:00 100.5 72 21 102/59 (73) 90 01/02/18 16:00 60 01/02/18 16:00 72 01/02/18 14:46 70 109/64 01/02/18 14:00 71 01/02/18 13:54 89 60 I/O 01/02/18 01/02/18 01/02/18 01/03/18 01/03/18 01/03/18 07:00 15:00 23:00 07:00 15:00 23:00 Intake Total 2360 ml 2016 ml 655 ml 1036 ml 223.7 ml Output Total 1200 ml 1900 ml 1150 ml Balance 1160 ml 2016 ml -1245 ml -114 ml 223.7 ml IV Total 2240 ml 2016 ml 415 ml 736 ml 223.7 ml Other 120 ml 240 ml 300 ml Output Urine Total 1000 ml 850 ml 450 ml Stool Total 50 ml Gastric Drainage Total 900 ml 50 ml Drainage Total 200 ml 150 ml 600 ml # Bowel Movements 0 0 Laboratory Laboratory Tests Test 01/02/18 20:00 01/03/18 04:39 Blood Urea Nitrogen 38 42 Creatinine 3.41 3.49 Random Glucose 111 167 Calcium Level 7.6 7.5 Sodium Level 135 136 Potassium Level 4.3 4.0 Chloride Level 104 106 Carbon Dioxide Level 14.7 15.8 Anion Gap 16 14 Estimat Glomerular Filtration Rate 19 19 Total Creatine Kinase 104 121 White Blood Count 9.6 Red Blood Count 2.63 Hemoglobin 7.4 Hematocrit 23.5 Mean Corpuscular Volume 89.6 Mean Corpuscular Hemoglobin 28.1 Mean Corpuscular Hemoglobin Concent 31.3 Red Cell Distribution Width 27.3 Platelet Count 234 Mean Platelet Volume 8.3 Neutrophils (%) (Auto) 74.2 Lymphocytes (%) (Auto) 7.7 Monocytes (%) (Auto) 13.0 Eosinophils (%) (Auto) 2.7 Basophils (%) (Auto) 2.4 Neutrophils # (Auto) 7.1 Lymphocytes # (Auto) 0.7 Monocytes # (Auto) 1.2 Eosinophils # (Auto) 0.3 Basophils # (Auto) 0.2 CBC Comment AUTO DIFF Differential Total Cells Counted 100 Neutrophils % (Manual) 70 Band Neutrophils % 15 Lymphocytes % 4 Monocytes % 7 Eosinophils % 3 Basophils % 1 Neutrophils # (Manual) 8.2 Differential Comment FINAL DIFF MANUAL Toxic Granulation 1+ Platelet Estimate NORMAL Platelet Morphology Comment NORMAL Polychromasia 2.5 Ovalocytes 1+ Acanthocytes 1+ Prothrombin Time 16.8 Prothromb Time International Ratio 1.7 Activated Partial Thromboplast Time 39.3 Total Protein 6.0 Albumin 2.7 Phosphorus Level 4.2 Magnesium Level 2.2 Alkaline Phosphatase 68 Aspartate Amino Transf (AST/SGOT) 100 Alanine Aminotransferase (ALT/SGPT) 33 Total Bilirubin 16.5 Date/Time Source Procedure Growth Status 01/02/18 08:38 Blood Peripheral Aerobic Blood Culture - Preliminary NO GROWTH IN 1 DAY Resulted 01/02/18 08:38 Blood Peripheral Anaerobic Blood Culture - Preliminary NO GROWTH IN 1 DAY Resulted 12/28/17 11:40 Fluid Peritoneal Fluid Gram Stain - Final Complete 12/28/17 11:40 Fluid Peritoneal Fluid Body Fluid Culture - Final NO GROWTH IN 72 HRS.--AEROBICALLY OR ... Complete 12/30/17 09:30 Sputum Endotracheal Gram Stain - Final Complete 12/30/17 09:30 Sputum Endotracheal Sputum Culture - Final HEAVY GROWTH NORMAL RESPIRATORY AISHWARYA Complete 12/30/17 08:45 Urine Catheterized Urine Urine Culture - Final NO GROWTH IN 48 HOURS. Complete Imaging Last Impressions Chest X-Ray 01/03/18 06 Signed Impressions: CONCLUSION: Lungs are grossly clear. Abdomen X-Ray 01/03/18599 Signed Impressions: CONCLUSION: No dilated bowel. Liver Ultrasound 12/31/17 0000 Signed Impressions: CONCLUSION: 1. Diffuse increased echogenicity throughout the liver suggestive of fatty inf iltration and/or hepatocellular disease. 2. Hepatomegaly. 3. Thickened gallbladder wall at 12 mm. No definite gallstones are seen. As ca n be seen with chronic gallbladder disease. Aorta CTA 12/28/17 Signed Impressions: Service Date/Time: Thursday, December 28, 2017 21:00 - CONCLUSION: 1. Normal thoracic and abdominal aorta. No dissection/aneurysm seen. 2. Bibasilar consolidation and patchy densities in the upper lobes. 3. Hepatic steatosis with possible cirrhosis and moderate abdominal ascites. 4. Cholelithiasis. Aldair Francis MD Abdomen/Pelvis CT 12/27/171921 Signed Impressions: Service Date/Time: Wednesday, December 27, 2017 21:00 - CONCLUSION: 1. Diffusely abnormal liver likely secondary to hepatic steatosis and possible changes of cirrhosis. 2. Splenomegaly. This could be secondary to portal hypertension. 3. Moderate ascites. 4. Calcified gallstone. Stefan Grier MD Gall Bladder Ultrasound 12/27/17 0000 Signed Impressions: Service Date/Time: Wednesday, December 27, 2017 21:16 - CONCLUSION: 1. Diffusely abnormal liver secondary to cirrhosis and hepatic steatosis. 2. Gallbladder wall thickening. This is nonspecific. This can be seen with hepatic disease. It also can be seen with cholecystitis in the correct clinical situation. Gallstones were not demonstrated on the ultrasound examination but are clearly present on the CT examination. Stefan Grier MD Physical Exam HEENT: Normocephalic; atraumatic; CHEST: Respirations synchronized with vent via ETT CARDIAC: RRR ABDOMEN: Distended, firm, hypoactive bowel sounds, Dobhoff EXTREMITIES: Generalized edema SKIN: (+) jaundice DRUG CLERK: Sedated (Rosemarie Rodriguez) Assessment and Plan Plan Assessment: - Nausea and vomiting- hematemesis x 2 days H/H currently 8.6/25.9 S/P 2 U PRBCs Has never had EGD or colonoscopy CT abdomen and pelvis W IV contrast (12/27) --> Diffusely abnormal liver likely secondary to hepatic steatosis and possible changes of cirrhosis. Splenomegaly. This could be secondary to portal hypertension. Moderate ascites. US gallbladder (12/27) Diffusely abnormal liver secondary to cirrhosis and hepatic steatosis. Gallbladder wall thickening, nonspecific. 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 secondary to Potomania and emesis EGD (12/28) --> Esophageal varices grade - 3 columns a nipple in midesophgus was seen, possible prior banding or source of bleeding one band applied above it. Additional band were applied under the level of the above area no active bleeding. Retroflexed views revealed a hiatal hernia Paracentesis on 12/28/17 3000 ml of fluid removed, cx with no growth at 72 hours. Cytology negative for malignant cells. (01/02) Pt remains in ICU, sedated on Propofol and Precedex and mechanically ventilated via ETT. on Dayron for BP support. Remains on Protonix and Octreotide gtt. Coagulopathy- INR 1.6 LFTs trending down. T bili remains significantly elevated but trending down currently 18. On Pentoxifylline. Pt still spiking fevers, no steroids indicated at this time. Abdomen remains distended and firm, no BM. Dobbhoff to low suction. KUB (01/02) --> Stable bowel gas pattern most consistent with adynamic ileus. On Reglan q8hrs. (01/03) pt is still sedated. he is s/p Decompressive colonoscopy on 01/02 Abd X-ray today no dilated bowels LFTs trending down. T bili remains significantly elevated but trending down currently 16. On Pentoxifylline. slight drop in hgb, no bleeding reported Dobbhoff to intermittent suction Plan: Cont. NGT to LIWS Continue Reglan Continue bowel regimen Monitor labs Pentoxifylline Octreotide gtt Protonix iv EGD in one week Supportive care Further recommendations based on clinical course and results of above Pt has been seen and examined by myself and Dr. Crews and this note is written on his behalf (Rosemarie Rodriguez) Physician Comments Patient seen and examined Agree with above Continue with current supportive care Monitor labs On yesterday's colonoscopy there was not much stool and on today's x-ray there is no air in the colon so most of the serious is probably due to small bowel Continue with NG suction and prokinetics (John Crews MD) Rosemarie Rodriguez January 03, 2018 13:33 John Crews MD January 03, 2018 13:45
[2018-01-03] MEDS: OCTREOTIDE INJ 500 MCG in SODIUM CHLORID 0.9% 500 ML INJ 499.5 ML IV SCH (15:45)
--- NOTE | 2018-01-03 16:21 | HHI.NPPN ---
Subjective History of Present Illness 52-year-old male, Alcoholic hepatitis/cirrhosis received contrast study and acute renal failure Objective Data Data 01/03/18 01/04/18 19:00 07:00 Intake Total 1987.8719 ml Balance 1987.8719 ml IV Total 1611.8719 ml FFP 347 ml Blood Product IV Normal Saline Flush 30 ml Vital Signs Date Time Temp Pulse Resp B/P (MAP) Pulse Ox O2 Delivery O2 Flow Rate FiO2 01/03/18 16:00 98.8 75 22 97/55 (69) 93 01/03/18 16:00 70 01/03/18 16:00 75 01/03/18 15:06 94 60 01/03/18 14:00 71 01/03/18 12:00 78 01/03/18 12:00 98.8 78 30 104/57 (73) 95 01/03/18 12:00 70 01/03/18 11:31 95 60 01/03/18 10:00 72 01/03/18 08:00 70 01/03/18 08:00 99.8 70 22 92/50 (64) 94 01/03/18 08:00 70 01/03/18 07:44 95 60 01/03/18 06:00 69 01/03/18 04:00 99.8 70 21 89/53 (65) 96 01/03/18 04:00 70 01/03/18 04:00 70 01/03/18 03:44 94 70 01/03/18 02:00 67 01/03/18 00:00 68 01/03/18 00:00 70 01/03/18 00:00 100.2 68 20 107/60 (76) 95 01/02/18 23:48 94 70 01/02/18 22:00 68 01/02/18 20:11 92 70 01/02/18 20:00 70 01/02/18 20:00 100.3 66 20 111/61 (78) 90 01/02/18 20:00 66 01/02/18 18:00 72 01/02/18 17:19 89 60 -: 01/03/18 0439 01/03/18 0439 Physical Exam General Appearance: Well Developed, Well Nourished Neck Neck Exam: Neck Supple Pulmonary Resp Exam: Clear Bilaterally, Diminished Breath Sounds Cardiology CV Exam: Regular, Normal Sinus Rhythm Gastrointestinal/Abdomen GI Exam: Soft, Distended Extremeties Extremities Exam: Moderate Edema Assessment/Plan Problem List: (1) Acute renal failure ICD Codes: N17.9 - Acute kidney failure, unspecified Plan: Patient has liver cirrhosis and possible hepatorenal syndrome is considered, he did receive contrast studies as well, His creatinine stil high increase Albumin Lasix to q 6 as Anasarca worse His urine output picked up with albumin and Lasix Continue to monitor CMP Liver and Kidney function decompressive colonoscopy done yesterday Avoid nephrotoxins or dye studies (2) Upper GI bleed ICD Codes: K92.2 - Gastrointestinal hemorrhage, unspecified Plan: GI is following (3) Alcoholic cirrhosis ICD Codes: K70.30 - Alcoholic cirrhosis of liver without ascites Plan: Followed by GI (4) Coagulopathy ICD Codes: D68.9 - Coagulation defect, unspecified Plan: Patient has received blood product, FFP and PRBCs (5) Ascites ICD Codes: R18.8 - Other ascites Plan: Due to alcoholic cirrhosis (6) Hyponatremia ICD Codes: E87.1 - Hypo-osmolality and hyponatremia Plan: Sodium has improved Problem Qualifiers (1) Acute renal failure: Qualified Codes: N17.9 - Acute kidney failure, unspecified (2) Alcoholic cirrhosis: Qualified Codes: K70.31 - Alcoholic cirrhosis of liver with ascites (3) Ascites: Qualified Codes: K70.31 - Alcoholic cirrhosis of liver with ascites Ciro Elder MD January 03, 2018 16:21
[2018-01-04] VITALS (18 sets, daily range): BP systolic 105–121; BP diastolic 55–65; PULSE 76–88; RESP 19–25; TEMP 97.8–99.4; O2SAT 92–100
[2018-01-04] MEDS: ALBUMIN 25% INJ 100 ML IV SCH ×4 (00:50→18:05)
[2018-01-04] MEDS: PROPOFOL 1000 MG/100 ML INJ 100 ML IV PRN ×7 (02:22→21:36)
[2018-01-04] MEDS: FUROSEMIDE 40 MG/4 ML VIAL IV PUSH SCH ×4 (02:23→18:05)
[2018-01-04] MEDS: PIPERACIL-TAZO 2.25 GM PREMIX 50 ML IV SCH ×4 (02:58→19:38)
[2018-01-04] MEDS: RESP: ALBUTEROL 2.5 MG/IPRATROPIUM 0.5 MG NEB (SCH) NEB ×6 (03:11→23:49)
[2018-01-04 03:55] LABS: AUTOMATED NEUTROPHIL # 6.1 TH/MM3 (1.8-7.7); BASOPHIL # 0.2 TH/MM3 (0-0.2); EOSINOPHIL # 0.1 TH/MM3 (0-0.4); EOSINOPHIL % 1.6 % (0.0-4.0); HEMATOCRIT 21.7 % (39.0-51.0); HEMOGLOBIN 7.1 GM/DL (13.0-17.0); LYMPH % 7.5 % (9.0-44.0); LYMPHOCYTE # 0.7 TH/MM3 (1.0-4.8); MEAN CELL VOLUME 90.2 FL (80.0-100.0); MEAN CORPUSCULAR HEMOGLOBIN 29.4 PG (27.0-34.0); MEAN CORPUSCULAR HGB CONC 32.6 % (32.0-36.0); MEAN PLATELET VOLUME 8.2 FL (7.0-11.0); MONO % 21.2 % (0.0-8.0); MONOCYTE # 1.9 TH/MM3 (0-0.9); NEUT % 67.7 % (16.0-70.0); PLATELET COUNT 164 TH/MM3 (150-450); RED BLOOD COUNT 2.41 MIL/MM3 (4.50-5.90); RED CELL DISTRIBUTION WIDTH 27.1 % (11.6-17.2); WHITE BLOOD COUNT 9.1 TH/MM3 (4.0-11.0)
[2018-01-04] MEDS: INSULIN NovoLIN REGULAR SUPPLEMENTAL SCALE SQ SCH ×6 (04:00→20:00)
[2018-01-04] MEDS: CHLORHEXIDINE GLUCONATE 2 % 1 PACK (2 CLOTHS) TOP SCH (04:00)
[2018-01-04] MEDS: PANTOPRAZOLE INJ 80 MG in SODIUM CHLORIDE 0.9% INJ 100 ML IV SCH ×3 (04:07→22:56)
[2018-01-04 04:16] LABS: ALKALINE PHOSPHATASE 58 U/L (45-117); ALT (GPT) 32 U/L (12-78); TOTAL BILIRUBIN ADULT 15.5 MG/DL (0.2-1.0); TOTAL PROTEIN 6.3 GM/DL (6.4-8.2)
[2018-01-04 04:22] LABS: INTERNATIONAL NORMALIZED RATIO 1.5 RATIO; PROTHROMBIN TIME - PATIENT 15.4 SEC (9.8-11.6)
[2018-01-04 04:22] LABS: ALBUMIN 3.1 GM/DL (3.4-5.0); AST (GOT) 99 U/L (15-37); BICARBONATE 18.3 MEQ/L (21.0-32.0); BLOOD UREA NITROGEN 47 MG/DL (7-18); CALCIUM 7.8 MG/DL (8.5-10.1); CHLORIDE 105 MEQ/L (98-107); CREATININE 3.97 MG/DL (0.60-1.30); GLOMERULAR FILTRATION RATE 16 ML/MIN (>89); GLUCOSE,RANDOM 92 MG/DL (74-106); SODIUM (NA) 138 MEQ/L (136-145)
[2018-01-04 04:25] LABS: BANDS 14 % (0-6); BASOPHILS 3 % (0-2); LYMPHOCYTES 10 % (9-44); METAMYELOCYTES 1 % (0-1); MONOCYTES 11 % (0-8); NEUTROPHIL # MANUAL DIFF 6.4 TH/MM3 (1.8-7.7); POLYS (SEG NEUTROPHILS) 55 % (16-70)
[2018-01-04 04:27] LABS: ACANTHOCYTES OCC (NORMAL); SPHEROCYTES 1+ (NORMAL)
[2018-01-04] MEDS: PENTOXIFYLLINE 400 MG CONTROLLED RELEASE TAB PO SCH ×3 (06:00→19:39)
[2018-01-04] MEDS: ARTIFICIAL TEARS OPTH SOLN 15 ML BTL EACH EYE SCH ×3 (06:23→21:37)
[2018-01-04] MEDS: METOCLOPRAMIDE HCL 10 MG/2 ML VIAL IV PUSH SCH ×3 (06:41→21:36)
[2018-01-04] MEDS: LINEZOLID 600 MG PREMIX 300 ML IV SCH ×2 (06:45→18:30)
[2018-01-04] MEDS: CHLORHEXIDINE 0.12% (ORAL KIT) 15 ML CUP MT SCH ×2 (08:00→19:39)
[2018-01-04] MEDS: LORazepam 1 MG TAB PO SCH ×2 (08:23→19:38)
[2018-01-04] MEDS: LACTULOSE SYRUP 20 GM/30 ML CUP PO SCH ×4 (08:23→19:38)
[2018-01-04] MEDS: SENNOSIDES SYRUP 8.8 MG/5 ML CUP PO SCH ×2 (08:23→19:38)
[2018-01-04] MEDS: DOCUSATE SODIUM 100 MG/10 ML UDC PO SCH ×2 (08:23→19:39)
[2018-01-04] MEDS: POLYETHYLENE GLYCOL 17 GM PKG PO SCH ×2 (08:23→19:39)
[2018-01-04] MEDS: SODIUM CHLORIDE 0.9% FLUSH 10 ML FLUSH IV FLUSH SCH ×3 (08:24→19:39)
[2018-01-04] MEDS: THIAMINE INJ 100 MG in SODIUM CHLORIDE 0.9% INJ 100 ML IV SCH (08:24)
[2018-01-04] MEDS: SODIUM CHLORIDE 23.4% INJ 5.5 MEQ, SODIUM ACETATE INJ 29.5 MEQ, POTASSIUM CHLORIDE INJ ... IV-CENTRAL SCH ×9 (08:30)
--- NOTE | 2018-01-04 08:49 | HHI.CCPN ---
Subjective Remarks/Hospital Course Patient is a 52-year-old male with history of alcohol dependence, on chronic Coumadin for "abdominal vein thrombosis", history of hypertension who presented to the emergency department with complaints of increasing jaundice, increasing abdominal girth and vomiting jade blood multiple times over the last 2 days. Patient admits to being a heavy drinker he drinks about 1.75 L bottle hard liquor every 2 days. ER workup showed patient had a hemoglobin of 8.1, INR was 15.7. PTT 156.1, white count of 13.6 with 10% bands. Also sodium was noted to be 119, AST 439 ALT 115 and bilirubin of 7.6. A stat CT abdomen pelvis showed moderate ascites, probable cirrhosis and hepatic steatosis, splenomegaly, and gallstones. Patient had been ordered to receive 2 units of PRBC, and total 4 units of FFP. INR, Hb will be rechecked after this and additional FFP will be given accordingly. 10 mg vitamin K also ordered. Unfortunately hospital is out of [facility]. I evaluated the patient in the emergency department. He initially had an alcohol level of 135. At the time of my exam he is in moderate distress appears to be slightly tremulous. I have initiated CIWA protocol. I will also start its Rocephin for SBP prophylaxis. Patient had been started on IV Protonix infusion and octreotide which will be continued. Patient clinically also appears to have at least moderate ascites but I am unable to perform paracentesis due to elevated INR. 12/28: Currently resting in bed complaining of abdominal pain. Short of breath and tachypnea. Complaining of nausea currently. Remains on nasal cannula. Patient does not desire his mother's to have knowledge about his alcohol use. 12/29: Afebrile. Remains intubated post EGD yesterday due to worsening hypoxia. Currently on PSV trial 26/05 at 40%. Remains on dexmedetomidine drip and attempt to wean with alcohol use and likely progression to DTs. Banding of varices noted. Pentoxifylline 400 mg every 8 hours initiated with appropriate 12/30: Awake on dexmedetomidine drip at 1 mcg/kg/min. Following commands and attempting to write. Nods his head when states he feels the effects of alcohol withdrawals. Afebrile. Continues to leak from prior site of paracentesis. 12/31: Diminished urine output noted overnight. Increasing FiO2 requirement. Bladder pressures measured currently elevated around 25. Will place tube to suction and notify GI. Nephrology consult placed. Will need central line. 01/01: T-max 100. Currently 99. Meld score 34. Discriminant function is 34. Tamera alcohol scale score 7. Arousable the ventilator. FiO2 increased to 40- 60% overnight. 350 cc from NG tube overnight. 01/02: T-max 99.8. No bowel movement overnight. Abdomen remains distended. More ascites output from left lower quadrant previous paracentesis site. Arousable on the ventilator and follows commands on sedation vacation. Remains on PEEP of 12. FiO2 60%. 01/03: Patient remains intubated sedated very critical. FiO2 had to be increased to 70%. I have increase PEEP from 12-14. Chest x-ray remains unchanged. T-max 100.5. Urine output 1.3 L. BUN 42 creatinine 3.5 hemoglobin 7.4. Bedside ultrasound shows at least moderate ascites. Plan for thoracentesis for fluid removal and also will help with vent dynamic. 01/04: Persistent problems with oxygenation related to diffuse basilar atelectasis. Patient converted to airway pressure release ventilation this morning. Caloric intake probably on the high side in view of propofol infusion. Will reduce TPN to 60 cc/h. Enteral feedings at trickle rate. Objective Vital Signs Date Time Temp Pulse Resp B/P (MAP) Pulse Ox O2 Delivery O2 Flow Rate FiO2 01/04/18 07:40 97 50 01/04/18 07:40 Ventilator 01/04/18 06:00 85 01/04/18 04:00 98.7 24 120/57 (78) Intake and Output 01/04/18 01/04/18 01/05/18 08:00 16:00 00:00 Intake Total 1773 ml Output Total 1425 ml Balance 348 ml Result Diagram: 01/04/18 0330 01/04/18 0330 Imaging Last Impressions Chest X-Ray 01/01/18 0600 Signed Impressions: CONCLUSION: Hazy opacity in both lungs left greater than right which appears mildly improve d from the prior study. Liver Ultrasound 12/31/17 0000 Signed Impressions: CONCLUSION: 1. Diffuse increased echogenicity throughout the liver suggestive of fatty inf iltration and/or hepatocellular disease. 2. Hepatomegaly. 3. Thickened gallbladder wall at 12 mm. No definite gallstones are seen. As ca n be seen with chronic gallbladder disease. Abdomen X-Ray 12/30/17 Signed Impressions: Service Date/Time: Saturday, December 30, 2017 14:28 - CONCLUSION: Dobbhoff tube tip in the stomach Stefan Lew MD Aorta CTA 12/28/17 Signed Impressions: Service Date/Time: Thursday, December 28, 2017 21:00 - CONCLUSION: 1. Normal thoracic and abdominal aorta. No dissection/aneurysm seen. 2. Bibasilar consolidation and patchy densities in the upper lobes. 3. Hepatic steatosis with possible cirrhosis and moderate abdominal ascites. 4. Cholelithiasis. Aldair Francis MD Abdomen/Pelvis CT 12/27/[id number] Signed Impressions: Service Date/Time: Wednesday, December 27, 2017 21:00 - CONCLUSION: 1. Diffusely abnormal liver likely secondary to hepatic steatosis and possible changes of cirrhosis. 2. Splenomegaly. This could be secondary to portal hypertension. 3. Moderate ascites. 4. Calcified gallstone. Stefan Grier MD Gall Bladder Ultrasound 12/27/17 Signed Impressions: Service Date/Time: Wednesday, December 27, 2017 21:16 - CONCLUSION: 1. Diffusely abnormal liver secondary to cirrhosis and hepatic steatosis. 2. Gallbladder wall thickening. This is nonspecific. This can be seen with hepatic disease. It also can be seen with cholecystitis in the correct clinical situation. Gallstones were not demonstrated on the ultrasound examination but are clearly present on the CT examination. Stefan Grier MD Procedures Paracentesis EGD Objective Remarks GENERAL: 52-year-old male lying in bed orotracheally intubated SKIN: Warm and dry. Jaundiced HEAD: Atraumatic. Normocephalic. EYES: Pupils equal and round about 2 millimeters, positive for conjunctival icterus. ENT: No nasal bleeding or discharge. Mucous membranes dry and pink. Orotracheally intubated NECK: Trachea midline. Cannot appreciate JVD due to body habitus CARDIOVASCULAR: Regular rate and rhythm. S1, S2. No S4. Without murmur RESPIRATORY: Clear to auscultation. Breath sounds equal bilaterally, but reduced in bases. GASTROINTESTINAL: Abdomen distended abdomen nontender obese. There is drainage from the left lower quadrants with cloudy yellow ascitic fluid positive. MUSCULOSKELETAL: Extremities -bilateral lower extreme 1+ pitting edema NEUROLOGICAL: Sedated but wakes up easily. No obvious cranial nerve deficits. Motor grossly within normal limits. Follows commands on sedation Date of Insertion: December 31, 2017 Line: Central Venous Catheter Side: Left Location: Internal, Jugular A/P Assessment and Plan NEURO/PSYCH: Alcohol withdrawal Alcohol dependence Currently on dexmedetomidine drip at 1 mcg/kg/min and propofol drip at 20 mcg/kg /min for sedation/analgesia while intubated Discontinue Precedex as the patient is not close to getting extubated, severely hypoxemic Previously on CIWA protocol with Lorazepam. Will place on scheduled Ativan 1 mg every 12 to reduce IV sedation -Supplement thiamine, folic acid and MVI with vitamin bag 3 days and switch to IV thiamine on 12/31 Alcohol cessation encouraged RESP: Acute hypoxemic respiratory failure Likely OHS, STAS PRVC 16/500/1.5/ -Increase PEEP to 14 and attempt weaning FiO2 Ventilator bundle -Nasal cannula oxygen to keep O2 sat >92% Albuterol/ipratropium aerosols every 6 hours, albuterol aerosols every 2 hours as needed dyspnea -Aggressive pulmonary toilet Chest x-ray in a.m. 01/03, no acute changes Converted to airway pressure release ventilation, chest x-ray in a.m. CV: History of hypertension -Holding amlodipine 5 mg due to GI bleed and Spironolactone 50 mg p.o. daily Systolic hypertension As needed labetalol, Nitropaste and nicardipine drip to maintain systolic blood pressure less than 170 -Diuresis with Lasix per nephrology GI: Upper GI bleed secondary to esophageal varices Ascites/abdominal Liver cirrhosis/hepatic steatosis Cholelithiasis Elevated transaminases/total bilirubin Elevated lipase Elevated ammonia Hypoalbuminemia EGD 12/28 revealed -esophageal varices/nipple midesophagus with 3 bands noted. Portal gastropathy. Hiatal hernia. Recommend a repeat EGD in 1 week Dobbhoff tube placed currently to low suction per GIs recommendations Started on pentoxifylline 400 mg every 8 hours. Unfortunately cannot get an NG tube initiate when able to swallow. No NG tube currently due to varices -Continue pantoprazole infusion at 8 mg an hour, octreotide infusion at 25 mcg/ hr. will need to address with GI at the duration Status post paracentesis 12/28-3 L. White blood cell count 80. Repeat paracentesis today 01/03/2018 CT abdomen/pelvis revealed no sequelae of pancreatitis. CT aorta revealed no signs of dissection or leakage. Lactulose 30 every 6 hours, docusate sodium liquid 100 mg twice daily, senna 8.8 mg twice daily and polyethylene glycol 17 g twice daily. 1 dose of methylnaltrexone 12 mg subcu 1 now. Mineral oil 3 cc 1 now. -Dobbhoff placed 12/31 KUB revealed possible ileus. Repeat in a.m. 01/03, did not reveal ileus Continue metoclopramide 5 every 8 MELD score and discriminate function both 33. [place] alcoholic hepatitis 7 FEN//Endo: Hypocalcemia Hyponatremia -Monitor renal function closely. Sliding scale insulin Accu-Cheks with Novulog/low regimen every 6 hours to maintain euglycemia ID: Probable sepsis Noted staph epi blood culture 12/31+ Possible SBP Linezolid and piperacillin/tazobactam renally dose day #4 Pertinent cultures 12/31 -blood cultures 1 out of 4 staph epi. 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 Hb 7.4 INR 1.7 today. -Give 1U FFP to facilitate paracentesis -Serially monitor INR, phytonadione 5 mg given 12/31 -Hemoglobin level slowly trending downward RENAL: Acute kidney injury -early hepatorenal syndrome Possible contrast nephropathy. Urine sodium 11. Urine creatinine elevated. Negative urine eosinophils. No hydronephrosis on CAT scan. Nephrology consultation appreciated. Furosemide 40 mg IV twice daily for creatinine currently 3.3 Elevated bladder pressures noted. Paracentesis should help Recheck laboratories this afternoon. No hydronephrosis MSK: Elevated BMI greater than 49 Weight loss PT evaluate and treat PROPH: -Bilateral lower extremity SCDs. IV pantoprazole infusion. Chemical DVT prophylaxis is contraindicated at this time LINES: -Utilize peripheral IVs, left IJ CVL day #4 placed 12/31 Overall impression: This gentleman is critically ill with portal hypertension related to alcoholic cirrhosis. We are unable to wean from the ventilator and indeed have switched to a more aggressive mode of lung support. Concerning his multiple comorbidities his survival is speculative at best. Critical care 42 minutes. Uri Chavez MD January 04, 2018 08:49
[2018-01-04] MEDS: SODIUM BICARBONATE 8.4% INJ 150 MEQ in WATER STERILE FOR INJ 850 ML IV SCH ×2 (10:50→21:37)
[2018-01-04] MEDS: OCTREOTIDE INJ 500 MCG in SODIUM CHLORID 0.9% 500 ML INJ 499.5 ML IV SCH (11:56)
--- NOTE | 2018-01-04 13:23 | HHI.NPPN ---
Subjective History of Present Illness 52-year-old male, Alcoholic hepatitis/cirrhosis received contrast study and acute renal failure Objective Data Data 01/04/18 01/05/18 19:00 07:00 Intake Total 500 ml Balance 500 ml IV Total 500 ml Vital Signs Date Time Temp Pulse Resp B/P (MAP) Pulse Ox O2 Delivery O2 Flow Rate FiO2 01/04/18 12:00 88 01/04/18 12:00 45 01/04/18 12:00 98.6 88 19 108/62 (77) 98 01/04/18 11:25 98 45 01/04/18 10:00 85 01/04/18 08:00 50 01/04/18 08:00 99.3 88 21 119/62 (81) 97 01/04/18 08:00 88 01/04/18 07:40 97 50 01/04/18 07:40 96 Ventilator 50 01/04/18 06:00 85 01/04/18 04:00 86 01/04/18 04:00 98.7 86 24 120/57 (78) 97 01/04/18 04:00 50 01/04/18 03:11 95 50 01/04/18 02:00 80 01/04/18 00:00 76 01/04/18 00:00 50 01/04/18 00:00 99.4 76 21 105/55 (72) 100 01/03/18 23:12 98 50 01/03/18 22:00 75 01/03/18 20:00 77 01/03/18 20:00 50 01/03/18 20:00 99.8 77 22 106/60 (75) 96 01/03/18 19:18 98 50 01/03/18 18:00 74 01/03/18 17:42 92 50 01/03/18 16:00 98.8 75 22 97/55 (69) 93 01/03/18 16:00 70 01/03/18 16:00 75 01/03/18 15:06 94 60 01/03/18 14:00 71 -: 01/04/18 0330 01/04/18 0330 Physical Exam General Appearance: Well Developed, Well Nourished Neck Neck Exam: Neck Supple Pulmonary Resp Exam: Clear Bilaterally, Diminished Breath Sounds Cardiology CV Exam: Regular, Normal Sinus Rhythm Gastrointestinal/Abdomen GI Exam: Soft, Distended Extremeties Extremities Exam: Moderate Edema Assessment/Plan Problem List: (1) Acute renal failure ICD Codes: N17.9 - Acute kidney failure, unspecified Plan: Patient has liver cirrhosis and possible hepatorenal syndrome is considered, he did receive contrast studies as well, His creatinine stil high Worsening renal failure started on bicarbonate of albumin and Lasix Generalized Continue to monitor CMP Liver and Kidney function May need dialysis support decompressive colonoscopy done Avoid nephrotoxins or dye studies (2) Upper GI bleed ICD Codes: K92.2 - Gastrointestinal hemorrhage, unspecified Plan: GI is following (3) Alcoholic cirrhosis ICD Codes: K70.30 - Alcoholic cirrhosis of liver without ascites Plan: Followed by GI (4) Coagulopathy ICD Codes: D68.9 - Coagulation defect, unspecified Plan: Patient has received blood product, FFP and PRBCs (5) Ascites ICD Codes: R18.8 - Other ascites Plan: Due to alcoholic cirrhosis (6) Hyponatremia ICD Codes: E87.1 - Hypo-osmolality and hyponatremia Plan: Sodium has improved Problem Qualifiers (1) Acute renal failure: Qualified Codes: N17.9 - Acute kidney failure, unspecified (2) Alcoholic cirrhosis: Qualified Codes: K70.31 - Alcoholic cirrhosis of liver with ascites (3) Ascites: Qualified Codes: K70.31 - Alcoholic cirrhosis of liver with ascites Ciro Elder MD January 04, 2018 13:23
--- NOTE | 2018-01-04 16:16 | ECHRPT ---
Indication: Heart Failure CONCLUSIONS Normal left ventricular size and wall thickness. The left ventricular systolic function is normal wi th an estimated ejection fraction in the range of 60-65%. Normal wall motion. There is mild tricuspid regurgitation. The estimated pulmonary arterial pressure is 40 mmHg. BP: 108 / 62 HR: Rhythm: MEASUREMENTS (Male / Female) Normal Values Technical Quality:Technically difficult study 2D ECHO LV Diastolic Diameter PLAX 5.5 cm 4.2 - 5.9 / 3.9 - 5.3 cm LV Systolic Diameter PLAX 3.9 cm IVS Diastolic Thickness 1.2 cm 0.6 - 1.0 / 0.6 - 0.9 cm LVPW Diastolic Thickness 1.2 cm 0.6 - 1.0 / 0.6 - 0.9 cm LV Relative Wall Thickness 0.4 RV Internal Dim ED PLAX 3.9 cm LVOT Diameter 2.5 cm LA Systolic Diameter LX 4.8 cm 3.0 - 4.0 / 2.7 - 3.8 cm LA Volume Index 32.1 cm/m 16 - 28 cm/m M-MODE Aortic Root Diameter MM 2.6 cm LA Systolic Diameter MM 4.6 cm LA Ao Ratio MM 1.8 AV Cusp Separation MM 1.7 cm DOPPLER AV Peak Velocity 188.0 cm/s AV Peak Gradient 14.1 mmHg LVOT Peak Velocity 123.0 cm/s LVOT Peak Gradient 6.1 mmHg AV Area Cont Eq pk 3.2 cm MV Area PHT 2.4 cm Mitral E Point Velocity 105.0 cm/s Mitral A Point Velocity 43.9 cm/s Mitral E to A Ratio 2.4 LV E' Lateral Velocity 10.5 cm/s Mitral E to LV E' Lateral Ratio 10.0 LV E' Septal Velocity 11.1 cm/s Mitral E to LV E' Septal Ratio 9.5 TR Peak Velocity 292.0 cm/s TR Peak Gradient 34.1 mmHg Right Atrial Pressure 10.0 mmHg Pulmonary Artery Systolic Pressu 44.1 mmHg Right Ventricular Systolic Press 44.1 mmHg FINDINGS LEFT VENTRICLE Normal left ventricular size and wall thickness. The left ventricular systolic function is normal wi th an estimated ejection fraction in the range of 60-65%. Normal wall motion. RIGHT VENTRICLE Normal right ventricular size and systolic function. LEFT ATRIUM The left atrial size is moderately dilated. RIGHT ATRIUM The right atrial size is normal. ATRIAL SEPTUM Normal atrial septal thickness without atrial level shunting by limited color doppler interrogation. AORTA The aortic root and proximal ascending aorta are normal in size on limited imaging. MITRAL VALVE Structurally normal mitral valve. No mitral valve stenosis or regurgitation. AORTIC VALVE Trileaflet aortic valve. No aortic valve stenosis or regurgitation. TRICUSPID VALVE Structurally normal tricuspid valve. There is mild tricuspid regurgitation. The estimated pulmonary arterial pressure is 40 mmHg. PULMONARY VALVE No pulmonary valve regurgitation or stenosis. VESSELS The inferior vena cava is normal in size. PERICARDIUM No pericardial effusion. Francisco Javier Florentino MD (Electronically Signed) Final Date:04 Jan 2018 16:15
--- NOTE | 2018-01-04 16:44 | HHI.GIFU ---
Subjective Remarks Pt is sedated on a vent, TF started at 10 ml/hr, rectal tube noted with brown liquid stools. hh stable (Amawi,Khawla DOOR MAKER) Objective Vitals I&O Vital Signs Date Time Temp Pulse Resp B/P (MAP) Pulse Ox O2 Delivery O2 Flow Rate FiO2 01/04/18 16:00 98.7 88 20 114/64 (81) 96 01/04/18 16:00 45 01/04/18 16:00 88 01/04/18 14:00 88 01/04/18 12:00 88 01/04/18 12:00 45 01/04/18 12:00 98.6 88 19 108/62 (77) 98 01/04/18 11:25 98 45 01/04/18 10:00 85 01/04/18 08:00 50 01/04/18 08:00 99.3 88 21 119/62 (81) 97 01/04/18 08:00 88 01/04/18 07:40 97 50 01/04/18 07:40 96 Ventilator 50 01/04/18 06:00 85 01/04/18 04:00 86 01/04/18 04:00 98.7 86 24 120/57 (78) 97 01/04/18 04:00 50 01/04/18 03:11 95 50 01/04/18 02:00 80 01/04/18 00:00 76 01/04/18 00:00 50 01/04/18 00:00 99.4 76 21 105/55 (72) 100 01/03/18 23:12 98 50 01/03/18 22:00 75 01/03/18 20:00 77 01/03/18 20:00 50 01/03/18 20:00 99.8 77 22 106/60 (75) 96 01/03/18 19:18 98 50 01/03/18 18:00 74 01/03/18 17:42 92 50 I/O 01/03/18 01/03/18 01/03/18 01/04/18 01/04/18 01/04/18 07:00 15:00 23:00 07:00 15:00 23:00 Intake Total 1036 ml 2413.8719 ml 3037.1719 ml 1773 ml 1501 ml Output Total 1150 ml 975 ml 1425 ml Balance -114 ml 2413.8719 ml 2062.1719 ml 348 ml 1501 ml IV Total 736 ml 2036.8719 ml 2837.1719 ml 1490 ml 1501 ml Tube Feeding 83 ml FFP 347 ml Blood Product IV Normal Saline Flush 30 ml Other 300 ml 200 ml 200 ml Output Urine Total 450 ml 275 ml 375 ml Stool Total 50 ml 150 ml 500 ml Gastric Drainage Total 50 ml 125 ml Drainage Total 600 ml 425 ml 550 ml # Bowel Movements 2 Laboratory Laboratory Tests Test 01/04/18 03:30 01/04/18 03:55 01/04/18 08:58 White Blood Count 9.1 Red Blood Count 2.41 Hemoglobin 7.1 Hematocrit 21.7 Mean Corpuscular Volume 90.2 Mean Corpuscular Hemoglobin 29.4 Mean Corpuscular Hemoglobin Concent 32.6 Red Cell Distribution Width 27.1 Platelet Count 164 Mean Platelet Volume 8.2 Neutrophils (%) (Auto) 67.7 Lymphocytes (%) (Auto) 7.5 Monocytes (%) (Auto) 21.2 Eosinophils (%) (Auto) 1.6 Basophils (%) (Auto) 2.0 Neutrophils # (Auto) 6.1 Lymphocytes # (Auto) 0.7 Monocytes # (Auto) 1.9 Eosinophils # (Auto) 0.1 Basophils # (Auto) 0.2 CBC Comment AUTO DIFF Differential Total Cells Counted 100 Neutrophils % (Manual) 55 Band Neutrophils % 14 Lymphocytes % 10 Monocytes % 11 Eosinophils % 6 Basophils % 3 Neutrophils # (Manual) 6.4 Metamyelocytes 1 Differential Comment FINAL DIFF MANUAL Platelet Estimate NORMAL Platelet Morphology Comment NORMAL Basophilic Stippling FAINT Spherocytes 1+ Acanthocytes OCC Blood Urea Nitrogen 47 Creatinine 3.97 Random Glucose 92 Total Protein 6.3 Albumin 3.1 Calcium Level 7.8 Alkaline Phosphatase 58 Aspartate Amino Transf (AST/SGOT) 99 Alanine Aminotransferase (ALT/SGPT) 32 Total Bilirubin 15.5 Sodium Level 138 Potassium Level 4.1 Chloride Level 105 Carbon Dioxide Level 18.3 Anion Gap 15 Estimat Glomerular Filtration Rate 16 Prothrombin Time 15.4 Prothromb Time International Ratio 1.5 Blood Gas Puncture Site RT RADIAL Blood Gas Patient Temperature 98.6 Blood Gas HCO3 15 Blood Gas Base Excess -10.6 Blood Gas Oxygen Saturation 94 Arterial Blood pH 7.30 Arterial Blood Partial Pressure CO2 31 Arterial Blood Partial Pressure O2 95 Arterial Blood Oxygen Content 9.3 Arterial Blood Carboxyhemoglobin 2.0 Arterial Blood Methemoglobin 1.1 Blood Gas Hemoglobin 6.9 Oxygen Delivery Device VENTILATOR Blood Gas Ventilator Setting SEE NOTE Blood Gas Inspired Oxygen 50 Date/Time Source Procedure Growth Status 01/02/18 08:38 Blood Peripheral Aerobic Blood Culture - Preliminary NO GROWTH IN 2 DAYS Resulted 01/02/18 08:38 Blood Peripheral Anaerobic Blood Culture - Preliminary NO GROWTH IN 2 DAYS Resulted 12/28/17 11:40 Fluid Peritoneal Fluid Gram Stain - Final Complete 12/28/17 11:40 Fluid Peritoneal Fluid Body Fluid Culture - Final NO GROWTH IN 72 HRS.--AEROBICALLY OR ... Complete 12/30/17 09:30 Sputum Endotracheal Gram Stain - Final Complete 12/30/17 09:30 Sputum Endotracheal Sputum Culture - Final HEAVY GROWTH NORMAL RESPIRATORY AISHWARYA Complete 12/30/17 08:45 Urine Catheterized Urine Urine Culture - Final NO GROWTH IN 48 HOURS. Complete Imaging Last Impressions Chest X-Ray 01/03/18 06 Signed Impressions: CONCLUSION: Lungs are grossly clear. Abdomen X-Ray 01/03/18 06 Signed Impressions: CONCLUSION: No dilated bowel. Liver Ultrasound 12/31/17 0000 Signed Impressions: CONCLUSION: 1. Diffuse increased echogenicity throughout the liver suggestive of fatty inf iltration and/or hepatocellular disease. 2. Hepatomegaly. 3. Thickened gallbladder wall at 12 mm. No definite gallstones are seen. As ca n be seen with chronic gallbladder disease. Aorta CTA 12/28/17 0000 Signed Impressions: Service Date/Time: Thursday, December 28, 2017 21:00 - CONCLUSION: 1. Normal thoracic and abdominal aorta. No dissection/aneurysm seen. 2. Bibasilar consolidation and patchy densities in the upper lobes. 3. Hepatic steatosis with possible cirrhosis and moderate abdominal ascites. 4. Cholelithiasis. Aldair Francis MD Abdomen/Pelvis CT [id number] Signed Impressions: Service Date/Time: Wednesday, December 27, 2017 21:00 - CONCLUSION: 1. Diffusely abnormal liver likely secondary to hepatic steatosis and possible changes of cirrhosis. 2. Splenomegaly. This could be secondary to portal hypertension. 3. Moderate ascites. 4. Calcified gallstone. Stefan Grier MD Gall Bladder Ultrasound 12/27/17 0000 Signed Impressions: Service Date/Time: Wednesday, December 27, 2017 21:16 - CONCLUSION: 1. Diffusely abnormal liver secondary to cirrhosis and hepatic steatosis. 2. Gallbladder wall thickening. This is nonspecific. This can be seen with hepatic disease. It also can be seen with cholecystitis in the correct clinical situation. Gallstones were not demonstrated on the ultrasound examination but are clearly present on the CT examination. Stefan Grier MD Physical Exam HEENT: Normocephalic; atraumatic; CHEST: Respirations synchronized with vent via ETT CARDIAC: RRR ABDOMEN: Distended, firm, hypoactive bowel sounds, Dobhoff EXTREMITIES: Generalized edema SKIN: (+) jaundice DRILLER AND BROACHER: Sedated (Jennifer,Rosemarie DOOR MAKER) Assessment and Plan Plan Assessment: - Nausea and vomiting- hematemesis x 2 days H/H currently 8.6/25.9 S/P 2 U PRBCs Has never had EGD or colonoscopy CT abdomen and pelvis W IV contrast (12/27) --> Diffusely abnormal liver likely secondary to hepatic steatosis and possible changes of cirrhosis. Splenomegaly. This could be secondary to portal hypertension. Moderate ascites. US gallbladder (12/27) Diffusely abnormal liver secondary to cirrhosis and hepatic steatosis. Gallbladder wall thickening, nonspecific. 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 secondary to [place] and emesis EGD (12/28) --> Esophageal varices grade - 3 columns a nipple in midesophgus was seen, possible prior banding or source of bleeding one band applied above it. Additional band were applied under the level of the above area no active bleeding. Retroflexed views revealed a hiatal hernia Paracentesis on 12/28/17 3000 ml of fluid removed, cx with no growth at 72 hours. Cytology negative for malignant cells. (01/02) Pt remains in ICU, sedated on Propofol and Precedex and mechanically ventilated via ETT. on Dayron for BP support. Remains on Protonix and Octreotide gtt. Coagulopathy- INR 1.6 LFTs trending down. T bili remains significantly elevated but trending down currently 18. On Pentoxifylline. Pt still spiking fevers, no steroids indicated at this time. Abdomen remains distended and firm, no BM. Dobbhoff to low suction. KUB (01/02) --> Stable bowel gas pattern most consistent with adynamic ileus. On Reglan q8hrs. (01/03) pt is still sedated. he is s/p Decompressive colonoscopy on 01/02 Abd X-ray today no dilated bowels LFTs trending down. T bili remains significantly elevated but trending down currently 16. On Pentoxifylline. slight drop in hgb, no bleeding reported Dobbhoff to intermittent suction (01/04) Pt remains sedated, TF started at 10 ml/hr. Rectal tube with brown liquid stools LFTs slightly better, hh stable Plan: TF at trickle rate Continue Reglan Continue bowel regimen Monitor labs Pentoxifylline Octreotide gtt Protonix iv EGD in one week Supportive care Further recommendations based on clinical course and results of above Pt has been seen and examined by myself and Dr. Crews and this note is written on his behalf (Rosemarie Rodriguez) Physician Comments Patient seen and examined Agree with above Continue with current supportive care Monitor labs Patient continues to leak from his paracentesis site we may need to do further paracentesis so as to reduce the leakage and allow it to heal (John Crews MD) Rosemarie Rodriguez January 04, 2018 16:44 John Crews MD January 04, 2018 18:42
[2018-01-05] VITALS (20 sets, daily range): BP systolic 121–149; BP diastolic 64–75; PULSE 84–93; RESP 21–25; TEMP 98–98.9; O2SAT 93–99
[2018-01-05] MEDS: PROPOFOL 1000 MG/100 ML INJ 100 ML IV PRN ×8 (00:54→21:44)
[2018-01-05] MEDS: FUROSEMIDE 40 MG/4 ML VIAL IV PUSH SCH ×4 (00:54→17:21)
[2018-01-05] MEDS: PIPERACIL-TAZO 2.25 GM PREMIX 50 ML IV SCH ×4 (02:30→21:44)
[2018-01-05] MEDS: RESP: ALBUTEROL 2.5 MG/IPRATROPIUM 0.5 MG NEB (SCH) NEB ×2 (03:38→07:36)
[2018-01-05] MEDS: SODIUM CHLORIDE 23.4% INJ 5.5 MEQ, SODIUM ACETATE INJ 29.5 MEQ, POTASSIUM CHLORIDE INJ ... IV-CENTRAL SCH ×18 (03:41→21:45)
[2018-01-05] MEDS: INSULIN NovoLIN REGULAR SUPPLEMENTAL SCALE SQ SCH ×6 (04:00→20:00)
[2018-01-05] MEDS: CHLORHEXIDINE GLUCONATE 2 % 1 PACK (2 CLOTHS) TOP SCH (04:00)
--- NOTE | 2018-01-05 04:24 | RADRPT ---
EXAM DATE: 01/05/2018 3:47 AM EDT AGE/SEX: 52 years / Male INDICATIONS: Respiratory failure. CLINICAL DATA: This is the patient's subsequent encounter. Patient reports that signs and symptoms h ave been present for 3 days and indicates a pain score of Nonresponsive. MEDICAL/SURGICAL HISTORY: Hypertension. Gastroesophageal reflux disease. Cirrhosis. None. COMPARISON: [facility] [place], CHEST SINGLE AP, 01/03/2018. . FINDINGS: Mild residual basilar consolidation on the left. Right lung currently reasonably clear. No pleural ef fusion seen. No pneumothorax. Heart size stable, upper limits of normal. Endotracheal tube tip is approximately 4 cm above the antionette. Feeding tube courses in the stomach. Th ere is a left internal jugular central venous catheter with tip in the superior vena cava again noted . CONCLUSION: Considerably improved bibasilar consolidation, now with mild residual on the left. Lines and tubes un changed. Electronically signed by: Stefan Trejo MD 01/05/2018 4:22 AM EDT
[2018-01-05] MEDS: ARTIFICIAL TEARS OPTH SOLN 15 ML BTL EACH EYE SCH ×3 (05:06→21:46)
[2018-01-05] MEDS: PENTOXIFYLLINE 400 MG CONTROLLED RELEASE TAB PO SCH ×3 (05:06→21:24)
[2018-01-05] MEDS: METOCLOPRAMIDE HCL 10 MG/2 ML VIAL IV PUSH SCH ×3 (05:42→21:46)
[2018-01-05] MEDS: ALBUMIN 25% INJ 100 ML IV SCH ×4 (05:42→17:22)
[2018-01-05] MEDS: LINEZOLID 600 MG PREMIX 300 ML IV SCH ×2 (05:42→18:11)
[2018-01-05] MEDS: OCTREOTIDE INJ 500 MCG in SODIUM CHLORID 0.9% 500 ML INJ 499.5 ML IV SCH (05:43)
[2018-01-05 06:14] LABS: HEMATOCRIT 21.6 % (39.0-51.0)
[2018-01-05 06:29] LABS: HEMOGLOBIN 6.9 GM/DL (13.0-17.0)
[2018-01-05 06:46] LABS: BICARBONATE 19.4 MEQ/L (21.0-32.0); CALCIUM 8.3 MG/DL (8.5-10.1); CREATININE 3.81 MG/DL (0.60-1.30)
[2018-01-05] MEDS: LORazepam 1 MG TAB PO SCH ×2 (08:00→21:45)
[2018-01-05] MEDS: SODIUM BICARBONATE 8.4% INJ 150 MEQ in WATER STERILE FOR INJ 850 ML IV SCH ×2 (08:00→17:21)
[2018-01-05] MEDS: LACTULOSE SYRUP 20 GM/30 ML CUP PO SCH ×4 (08:00→21:45)
[2018-01-05] MEDS: CHLORHEXIDINE 0.12% (ORAL KIT) 15 ML CUP MT SCH ×2 (08:00→20:46)
[2018-01-05] MEDS: POLYETHYLENE GLYCOL 17 GM PKG PO SCH ×2 (08:00→21:45)
[2018-01-05] MEDS: SENNOSIDES SYRUP 8.8 MG/5 ML CUP PO SCH ×2 (08:00→21:45)
[2018-01-05] MEDS: DOCUSATE SODIUM 100 MG/10 ML UDC PO SCH ×2 (08:00→21:45)
[2018-01-05] MEDS: THIAMINE INJ 100 MG in SODIUM CHLORIDE 0.9% INJ 100 ML IV SCH (08:01)
[2018-01-05] MEDS: SODIUM CHLORIDE 0.9% FLUSH 10 ML FLUSH IV FLUSH SCH ×3 (08:01→21:45)
--- NOTE | 2018-01-05 08:31 | HHI.CCPN ---
Subjective Remarks/Hospital Course Patient is a 52-year-old male with history of alcohol dependence, on chronic Coumadin for "abdominal vein thrombosis", history of hypertension who presented to the emergency department with complaints of increasing jaundice, increasing abdominal girth and vomiting jade blood multiple times over the last 2 days. Patient admits to being a heavy drinker he drinks about 1.75 L bottle hard liquor every 2 days. ER workup showed patient had a hemoglobin of 8.1, INR was 15.7. PTT 156.1, white count of 13.6 with 10% bands. Also sodium was noted to be 119, AST 439 ALT 115 and bilirubin of 7.6. A stat CT abdomen pelvis showed moderate ascites, probable cirrhosis and hepatic steatosis, splenomegaly, and gallstones. Patient had been ordered to receive 2 units of PRBC, and total 4 units of FFP. INR, Hb will be rechecked after this and additional FFP will be given accordingly. 10 mg vitamin K also ordered. Unfortunately hospital is out of [facility]. I evaluated the patient in the emergency department. He initially had an alcohol level of 135. At the time of my exam he is in moderate distress appears to be slightly tremulous. I have initiated CIWA protocol. I will also start its Rocephin for SBP prophylaxis. Patient had been started on IV Protonix infusion and octreotide which will be continued. Patient clinically also appears to have at least moderate ascites but I am unable to perform paracentesis due to elevated INR. 12/28: Currently resting in bed complaining of abdominal pain. Short of breath and tachypnea. Complaining of nausea currently. Remains on nasal cannula. Patient does not desire his mother's to have knowledge about his alcohol use. 12/29: Afebrile. Remains intubated post EGD yesterday due to worsening hypoxia. Currently on PSV trial 26/05 at 40%. Remains on dexmedetomidine drip and attempt to wean with alcohol use and likely progression to DTs. Banding of varices noted. Pentoxifylline 400 mg every 8 hours initiated with appropriate 12/30: Awake on dexmedetomidine drip at 1 mcg/kg/min. Following commands and attempting to write. Nods his head when states he feels the effects of alcohol withdrawals. Afebrile. Continues to leak from prior site of paracentesis. 12/31: Diminished urine output noted overnight. Increasing FiO2 requirement. Bladder pressures measured currently elevated around 25. Will place tube to suction and notify GI. Nephrology consult placed. Will need central line. 01/01: T-max 100. Currently 99. Meld score 34. Discriminant function is 34. Tamera alcohol scale score 7. Arousable the ventilator. FiO2 increased to 40- 60% overnight. 350 cc from NG tube overnight. 01/02: T-max 99.8. No bowel movement overnight. Abdomen remains distended. More ascites output from left lower quadrant previous paracentesis site. Arousable on the ventilator and follows commands on sedation vacation. Remains on PEEP of 12. FiO2 60%. 01/03: Patient remains intubated sedated very critical. FiO2 had to be increased to 70%. I have increase PEEP from 12-14. Chest x-ray remains unchanged. T-max 100.5. Urine output 1.3 L. BUN 42 creatinine 3.5 hemoglobin 7.4. Bedside ultrasound shows at least moderate ascites. Plan for thoracentesis for fluid removal and also will help with vent dynamic. 01/04: Persistent problems with oxygenation related to diffuse basilar atelectasis. Patient converted to airway pressure release ventilation this morning. Caloric intake probably on the high side in view of propofol infusion. Will reduce TPN to 60 cc/h. Enteral feedings at trickle rate. 01/05: Patient placed on APRV mode 01/04 with T-hi 5 sec Pres hi 30, with release volumes around 800 cc. Good oxygen saturation 30% FiO2. X-ray shows improvement in bilateral consolidation persistent left lower lobe infiltrate. Urine output 1.5 L also 1.5 L out from left paracentesis site. Transfuse 1 U PRBC Objective Vital Signs Date Time Temp Pulse Resp B/P (MAP) Pulse Ox O2 Delivery O2 Flow Rate FiO2 01/05/18 07:41 98 30 01/05/18 07:41 Ventilator 01/05/18 06:00 90 01/05/18 04:00 98.2 21 149/72 (97) Intake and Output 01/05/18 01/05/18 01/06/18 08:00 16:00 00:00 Intake Total 2333 ml Output Total 2650 ml Balance -317 ml Result Diagram: 01/05/18 0550 01/05/18 0550 Other Results Laboratory Tests Test 5/26/18 08:58 01/05/18 04:41 Blood Gas Puncture Site RT RADIAL RT RADIAL Blood Gas Patient Temperature 98.6 98.6 Blood Gas HCO3 15 mmol/L (22-26) 17 mmol/L (22-26) Blood Gas Base Excess -10.6 mmol/L (-2-2) -7.4 mmol/L (-2-2) Blood Gas Oxygen Saturation 94 % (90-100) 92 % (90-100) Arterial Blood pH 7.30 (7.380-7.420) 7.33 (7.380-7.420) Arterial Blood Partial Pressure CO2 31 mmHg (38-42) 34 mmHg (38-42) Arterial Blood Partial Pressure O2 95 mmHg (61-120) 77 mmHg (61-120) Arterial Blood Oxygen Content 9.3 Vol % (12.0-20.0) 9.7 Vol % (12.0-20.0) Arterial Blood Carboxyhemoglobin 2.0 % (0-4) 2.1 % (0-4) Arterial Blood Methemoglobin 1.1 % (0-2) 1.3 % (0-2) Blood Gas Hemoglobin 6.9 G/DL (12.0-16.0) 7.4 G/DL (12.0-16.0) Oxygen Delivery Device VENTILATOR VENTILATOR Blood Gas Ventilator Setting SEE NOTE SEE COMMENTS Blood Gas Inspired Oxygen 50 % 30 % Imaging Last Impressions Chest X-Ray 01/01/18 0600 Signed Impressions: CONCLUSION: Hazy opacity in both lungs left greater than right which appears mildly improve d from the prior study. Liver Ultrasound 12/31/17 0000 Signed Impressions: CONCLUSION: 1. Diffuse increased echogenicity throughout the liver suggestive of fatty inf iltration and/or hepatocellular disease. 2. Hepatomegaly. 3. Thickened gallbladder wall at 12 mm. No definite gallstones are seen. As ca n be seen with chronic gallbladder disease. Abdomen X-Ray 12/30/17 0000 Signed Impressions: Service Date/Time: Saturday, December 30, 2017 14:28 - CONCLUSION: Dobbhoff tube tip in the stomach Stefan Lew MD Aorta CTA 12/28/17 0000 Signed Impressions: Service Date/Time: Thursday, December 28, 2017 21:00 - CONCLUSION: 1. Normal thoracic and abdominal aorta. No dissection/aneurysm seen. 2. Bibasilar consolidation and patchy densities in the upper lobes. 3. Hepatic steatosis with possible cirrhosis and moderate abdominal ascites. 4. Cholelithiasis. Aldair Francis MD Abdomen/Pelvis CT 12/27/17 192 Signed Impressions: Service Date/Time: Wednesday, December 27, 2017 21:00 - CONCLUSION: 1. Diffusely abnormal liver likely secondary to hepatic steatosis and possible changes of cirrhosis. 2. Splenomegaly. This could be secondary to portal hypertension. 3. Moderate ascites. 4. Calcified gallstone. Stefan Grier MD Gall Bladder Ultrasound 12/27/17 0000 Signed Impressions: Service Date/Time: Wednesday, December 27, 2017 21:16 - CONCLUSION: 1. Diffusely abnormal liver secondary to cirrhosis and hepatic steatosis. 2. Gallbladder wall thickening. This is nonspecific. This can be seen with hepatic disease. It also can be seen with cholecystitis in the correct clinical situation. Gallstones were not demonstrated on the ultrasound examination but are clearly present on the CT examination. Stefan Grier MD Procedures Paracentesis EGD Objective Remarks GENERAL: 52-year-old male lying in bed orotracheally intubated, on APRV SKIN: Warm and dry. Jaundiced HEAD: Atraumatic. Normocephalic. EYES: Pupils equal and round about 2 millimeters, positive for conjunctival icterus. ENT: No nasal bleeding or discharge. Mucous membranes dry and pink. Orotracheally intubated NECK: Trachea midline. Cannot appreciate JVD due to body habitus CARDIOVASCULAR: Regular rate and rhythm. S1, S2. No S4. Without murmur RESPIRATORY: Clear to auscultation. Breath sounds equal bilaterally, but reduced in bases. On APRV mode with release volumes approx 800 CC GASTROINTESTINAL: Abdomen distended abdomen nontender obese. There is drainage from the left lower quadrants with yellow ascitic fluid . MUSCULOSKELETAL: Extremities -bilateral lower extreme 1+ pitting edema NEUROLOGICAL: Sedated but wakes up easily. No obvious cranial nerve deficits. Motor grossly within normal limits. Follows commands on sedation Date of Insertion: December 31, 2017 Line: Central Venous Catheter Side: Left Location: Internal, Jugular A/P Assessment and Plan NEURO/PSYCH: Alcohol withdrawal Alcohol dependence On propofol drip and fentanyl for sedation/analgesia while intubated Previously on CIWA protocol with Lorazepam. Continue scheduled Ativan 1 mg every 12 to reduce IV sedation Supplement thiamine, folic acid and MVI with vitamin bag 3 days and switch to IV thiamine on 12/31 Alcohol cessation encouraged RESP: Acute hypoxemic respiratory failure Likely OHS, STAS Vent mode changed to APRV. P-high30, P-low 0, T-high 5.0, T-low 0.6, PS 5 Ventilator bundle. Albuterol/ipratropium aerosols every 6 hours, albuterol aerosols every 2 hours as needed dyspnea Aggressive pulmonary toilet Chest x-ray in 01/05: Significant in bilateral consolidation. Residual left lower lobe infiltrate CV: History of hypertension Fluid overload -Holding amlodipine 5 mg due to GI bleed and Spironolactone 50 mg p.o. daily -Systolic hypertension. As needed labetalol, Nitropaste and nicardipine drip to maintain systolic blood pressure less than 170 -Diuresis with Lasix per nephrology. 40 mg IV every 6 hours -Continue bicarb infusion GI: Upper GI bleed secondary to esophageal varices Ascites/abdominal Liver cirrhosis/hepatic steatosis Cholelithiasis Elevated transaminases/total bilirubin Elevated lipase Elevated ammonia Hypoalbuminemia EGD 12/28 revealed -esophageal varices/nipple midesophagus with 3 bands noted. Portal gastropathy. Hiatal hernia. Repeat EGD in 1 week-defer to GI Dobbhoff tube placed currently to low suction per GIs recommendations Pentoxifylline 400 mg every 8 hours. Continue pantoprazole infusion at 8 mg an hour, octreotide infusion at 25 mcg/ hr. will need to address with GI at the duration Status post paracentesis 12/28-3 L. White blood cell count 80. Continues to drain large amounts from previous paracentesis site CT abdomen/pelvis revealed no sequelae of pancreatitis. CT aorta revealed no signs of dissection or leakage. Lactulose 30 every 6 hours, docusate sodium liquid 100 mg twice daily, senna 8.8 mg twice daily and polyethylene glycol 17 g twice daily. 1 dose of methylnaltrexone 12 mg subcu 1 now. Mineral oil 3 cc 1 now. Dobbhoff placed 12/31 KUB revealed possible ileus. Repeat in a.m. 01/03, did not reveal ileus Continue metoclopramide 5 every 8. Having BM MELD score and discriminate function both 33. [place] alcoholic hepatitis 7 Continue TPN FEN//Endo: Hypocalcemia Hyponatremia -Monitor renal function closely. Sliding scale insulin Accu-Cheks with NovoLog/low regimen every 6 hours to maintain euglycemia ID: Probable sepsis Noted staph epi blood culture 12/31+ probable contamination Possible SBP Linezolid and piperacillin/tazobactam renally dosed DC Zyvox 01/06. No indication to continue at this time Repeat sputum cx 01/05 Pertinent cultures 12/31 -blood cultures 1 out of 4 staph epi. 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 Hb 6.9 INR 1.5 today. Transfuse 1 units of PRBC today 01/05/2018 -Serially monitor INR, phytonadione 5 mg given 12/31 -Hemoglobin level slowly trending downward RENAL: Acute kidney injury Possible hepatorenal syndrome Possible contrast nephropathy, vs HRS. Urine sodium 11. Urine creatinine elevated. Negative urine eosinophils. No hydronephrosis on CAT scan. Nephrology Dr. thacker. Furosemide 40 mg IV q6h creatinine currently 3.8 Elevated bladder pressures noted, possibly inaccurate No hydronephrosis PROPH: -Bilateral lower extremity SCDs. IV pantoprazole infusion. Chemical DVT prophylaxis is contraindicated at this time LINES: -Utilize peripheral IVs, left IJ CVL day placed 12/31 Overall impression: This gentleman is critically ill with portal hypertension related to alcoholic cirrhosis. We are unable to wean from the ventilator and indeed have switched to a more aggressive mode of lung support, APRV. Concerning his multiple comorbidities his survival is guarded at best. Critical care 36 minutes. Chelsie Aviles MD January 05, 2018 08:31
[2018-01-05] MEDS: PANTOPRAZOLE INJ 80 MG in SODIUM CHLORIDE 0.9% INJ 100 ML IV SCH ×2 (09:00→20:00)
--- NOTE | 2018-01-05 12:35 | PD.PROCEDR ---
Procedure Note Procedure Date of procedure: 01/05/2018 Procedure: Right lower quadrant paracentesis, ultrasound-guided Indication: Abdominal ascites House Shorer: Chelsie Aviles M.D. Details of procedure: Informed consent was obtained from patient's mother. The patient was laid supine. Ascites was localized with ultrasound device. The right lower quadrant was cleaned with ChloraPrep twice. Regional sterile drapes were applied. Other barrier precautions included sterile gloves and face mask. 1% lidocaine was used for local anesthesia. A skin incision was made with a scalpel blade. Arrow -Carr Pleura-Seal Thoracentesis/Paracentesis Kit was used. An 8 Fr Catheter over 18 gauge introducer needle was inserted into the peritoneal space with return of biliary stained yellow fluid. The needle was removed. Approximately 3500 mL of fluid was removed and sent for analysis and cultures. The catheter was removed and hemostasis was achieved by direct pressure. The site was cleansed and a dressin was applied. Estimated blood loss: 1 cc Complications: None immediately. Chelsie Aviles MD January 05, 2018 12:35
[2018-01-05 13:25] LABS: TOTAL PROTEIN,PERITONEAL FLUID 1.2 GM/DL
[2018-01-05 13:39] LABS: PERITONEAL EOS 1 %; PERITONEAL LYMPHS 85 %; PERITONEAL MONOS 4 %; PERITONEAL POLYS(SEGS) 10 %; PERITONEAL RBC 202 /MM3 (0-0)
--- NOTE | 2018-01-05 14:01 | HHI.NPPN ---
Subjective History of Present Illness 52-year-old male, Alcoholic hepatitis/cirrhosis received contrast study and acute renal failure Objective Data Data 01/05/18 01/06/18 19:00 07:00 Intake Total 250 ml Balance 250 ml Blood Product IV Normal Saline Flush 250 ml Vital Signs Date Time Temp Pulse Resp B/P (MAP) Pulse Ox O2 Delivery O2 Flow Rate FiO2 01/05/18 12:00 98.8 89 21 128/64 (85) 93 01/05/18 12:00 89 01/05/18 12:00 30 01/05/18 11:55 97 30 01/05/18 10:47 98.8 87 24 129/65 93 01/05/18 10:29 98.8 84 25 131/69 93 01/05/18 10:15 98.9 88 22 133/66 93 01/05/18 10:00 88 01/05/18 08:00 98.9 90 21 141/75 (97) 94 01/05/18 08:00 30 01/05/18 08:00 90 01/05/18 07:41 98 30 01/05/18 07:41 99 Ventilator 30 01/05/18 06:00 90 01/05/18 04:00 98.2 93 21 149/72 (97) 96 01/05/18 04:00 30 01/05/18 04:00 93 01/05/18 03:38 97 30 01/05/18 02:00 87 01/05/18 00:00 85 01/05/18 00:00 30 01/05/18 00:00 98.0 85 21 121/66 (84) 93 01/04/18 23:49 92 40 01/04/18 22:00 84 01/04/18 20:00 85 01/04/18 20:00 30 01/04/18 20:00 97.8 85 25 121/65 (83) 92 01/04/18 19:24 92 30 01/04/18 18:00 85 01/04/18 17:04 94 30 01/04/18 16:00 98.7 88 20 114/64 (81) 96 01/04/18 16:00 45 01/04/18 16:00 88 01/04/18 14:00 88 -: 01/05/18 0550 01/05/18 0550 Microbiology 01/05/18 Gram Stain, Received Pending 01/05/18 Body Fluid Culture, Received Pending 01/05/18 Gram Stain, Received Pending 01/05/18 Sputum Culture, Received Pending Physical Exam General Appearance: Well Developed, Well Nourished Neck Neck Exam: Neck Supple Pulmonary Resp Exam: Clear Bilaterally, Diminished Breath Sounds Cardiology CV Exam: Regular, Normal Sinus Rhythm Gastrointestinal/Abdomen GI Exam: Soft, Distended Extremeties Extremities Exam: Moderate Edema Assessment/Plan Problem List: (1) Acute renal failure ICD Codes: N17.9 - Acute kidney failure, unspecified Plan: Patient has liver cirrhosis and possible hepatorenal syndrome is considered, he did receive contrast studies as well, His creatinine stil high renal failure started on bicarbonate of albumin and Lasix Cr slightly lower Paracentesis 3.5 L Generalized edema Continue to monitor CMP Liver and Kidney function as Cr declined will hold off HD for now PRBC given d/w Dr. Aviles decompressive colonoscopy done Avoid nephrotoxins or dye studies (2) Upper GI bleed ICD Codes: K92.2 - Gastrointestinal hemorrhage, unspecified Plan: GI is following (3) Alcoholic cirrhosis ICD Codes: K70.30 - Alcoholic cirrhosis of liver without ascites Plan: Followed by GI (4) Coagulopathy ICD Codes: D68.9 - Coagulation defect, unspecified Plan: Patient has received blood product, FFP and PRBCs (5) Ascites ICD Codes: R18.8 - Other ascites Plan: Due to alcoholic cirrhosis (6) Hyponatremia ICD Codes: E87.1 - Hypo-osmolality and hyponatremia Plan: Sodium has improved Problem Qualifiers (1) Acute renal failure: Qualified Codes: N17.9 - Acute kidney failure, unspecified (2) Alcoholic cirrhosis: Qualified Codes: K70.31 - Alcoholic cirrhosis of liver with ascites (3) Ascites: Qualified Codes: K70.31 - Alcoholic cirrhosis of liver with ascites Ciro Elder MD January 05, 2018 14:01
--- NOTE | 2018-01-05 17:02 | HHI.GIFU ---
Subjective Remarks Sedated Ventilator management Generalized edema extremities as well as abdomen and scrotal area Pale Hemoglobin 6.9 (Faiza Medrano) Objective Vitals I&O Vital Signs Date Time Temp Pulse Resp B/P (MAP) Pulse Ox O2 Delivery O2 Flow Rate FiO2 01/05/18 16:00 98.4 85 21 123/70 (87) 95 01/05/18 16:00 85 01/05/18 16:00 30 01/05/18 15:51 95 30 01/05/18 14:00 84 01/05/18 12:00 98.8 89 21 128/64 (85) 93 01/05/18 12:00 89 01/05/18 12:00 30 01/05/18 11:55 97 30 01/05/18 10:47 98.8 87 24 129/65 93 01/05/18 10:29 98.8 84 25 131/69 93 01/05/18 10:15 98.9 88 22 133/66 93 01/05/18 10:00 88 01/05/18 08:00 98.9 90 21 141/75 (97) 94 01/05/18 08:00 30 01/05/18 08:00 90 01/05/18 07:41 98 30 01/05/18 07:41 99 Ventilator 30 01/05/18 06:00 90 01/05/18 04:00 98.2 93 21 149/72 (97) 96 01/05/18 04:00 30 01/05/18 04:00 93 01/05/18 03:38 97 30 01/05/18 02:00 87 01/05/18 00:00 85 01/05/18 00:00 30 01/05/18 00:00 98.0 85 21 121/66 (84) 93 01/04/18 23:49 92 40 01/04/18 22:00 84 01/04/18 20:00 85 01/04/18 20:00 30 01/04/18 20:00 97.8 85 25 121/65 (83) 92 01/04/18 19:24 92 30 01/04/18 18:00 85 01/04/18 17:04 94 30 I/O 01/04/18 01/04/18 01/04/18 01/05/18 01/05/18 01/05/18 07:00 15:00 23:00 07:00 15:00 23:00 Intake Total 1773 ml 1501 ml 1393 ml 2333 ml 2331 ml Output Total 1425 ml 1575 ml 2650 ml Balance 348 ml 1501 ml -182 ml -317 ml 2331 ml IV Total 1490 ml 1501 ml 300 ml 2021 ml 1651 ml Tube Feeding 83 ml 118 ml 112 ml TPN/PPN 775 ml Packed Cells 400 ml Blood Product IV Normal Saline Flush 280 ml Other 200 ml 200 ml 200 ml Output Urine Total 375 ml 675 ml 800 ml Stool Total 500 ml 100 ml 1100 ml Drainage Total 550 ml 800 ml 750 ml # Bowel Movements 2 Laboratory Laboratory Tests Test 01/05/18 04:41 01/05/18 05:50 01/05/18 12:15 Blood Gas Puncture Site RT RADIAL Blood Gas Patient Temperature 98.6 Blood Gas HCO3 17 Blood Gas Base Excess -7.4 Blood Gas Oxygen Saturation 92 Arterial Blood pH 7.33 Arterial Blood Partial Pressure CO2 34 Arterial Blood Partial Pressure O2 77 Arterial Blood Oxygen Content 9.7 Arterial Blood Carboxyhemoglobin 2.1 Arterial Blood Methemoglobin 1.3 Blood Gas Hemoglobin 7.4 Oxygen Delivery Device VENTILATOR Blood Gas Ventilator Setting SEE COMMENTS Blood Gas Inspired Oxygen 30 Hemoglobin 6.9 Hematocrit 21.6 Blood Urea Nitrogen 55 Creatinine 3.81 Random Glucose 136 Calcium Level 8.3 Sodium Level 137 Potassium Level 4.1 Chloride Level 103 Carbon Dioxide Level 19.4 Anion Gap 15 Estimat Glomerular Filtration Rate 17 Peritoneal Fluid WBC 245 Peritoneal Fluid RBC 202 Peritoneal Fluid Neutrophils 10 Peritoneal Fluid Lymphocytes 85 Peritoneal Fluid Monocytes 4 Peritoneal Fluid Eosinophils 1 Peritoneal Fluid Total Protein 1.2 Peritoneal Fluid Albumin 0.7 Peritoneal Fluid LDH 62 Peritoneal Fluid Glucose 147 Date/Time Source Procedure Growth Status 01/02/18 08:38 Blood Peripheral Aerobic Blood Culture - Preliminary NO GROWTH IN 3 DAYS Resulted 01/02/18 08:38 Blood Peripheral Anaerobic Blood Culture - Preliminary NO GROWTH IN 3 DAYS Resulted 01/05/18 12:15 Fluid Peritoneal Fluid Gram Stain Pending Received 01/05/18 12:15 Fluid Peritoneal Fluid Body Fluid Culture Pending Received 01/05/18 09:50 Sputum Endotracheal Gram Stain Pending Received 01/05/18 09:50 Sputum Endotracheal Sputum Culture Pending Received 12/30/17 08:45 Urine Catheterized Urine Urine Culture - Final NO GROWTH IN 48 HOURS. Complete Imaging Last Impressions Chest X-Ray 01/05/18 0400 Signed Impressions: CONCLUSION: Considerably improved bibasilar consolidation, now with mild residual on the le ft. Lines and tubes unchanged. Abdomen X-Ray 01/03/18 0600 Signed Impressions: CONCLUSION: No dilated bowel. Liver Ultrasound 12/31/17 0000 Signed Impressions: CONCLUSION: 1. Diffuse increased echogenicity throughout the liver suggestive of fatty inf iltration and/or hepatocellular disease. 2. Hepatomegaly. 3. Thickened gallbladder wall at 12 mm. No definite gallstones are seen. As ca n be seen with chronic gallbladder disease. Aorta CTA 12/28/17 0000 Signed Impressions: Service Date/Time: Thursday, December 28, 2017 21:00 - CONCLUSION: 1. Normal thoracic and abdominal aorta. No dissection/aneurysm seen. 2. Bibasilar consolidation and patchy densities in the upper lobes. 3. Hepatic steatosis with possible cirrhosis and moderate abdominal ascites. 4. Cholelithiasis. Aldair Francis MD Abdomen/Pelvis CT 12/27/17 192 Signed Impressions: Service Date/Time: Wednesday, December 27, 2017 21:00 - CONCLUSION: 1. Diffusely abnormal liver likely secondary to hepatic steatosis and possible changes of cirrhosis. 2. Splenomegaly. This could be secondary to portal hypertension. 3. Moderate ascites. 4. Calcified gallstone. Stefan Girer MD Gall Bladder Ultrasound 12/27/17 0000 Signed Impressions: Service Date/Time: Wednesday, December 27, 2017 21:16 - CONCLUSION: 1. Diffusely abnormal liver secondary to cirrhosis and hepatic steatosis. 2. Gallbladder wall thickening. This is nonspecific. This can be seen with hepatic disease. It also can be seen with cholecystitis in the correct clinical situation. Gallstones were not demonstrated on the ultrasound examination but are clearly present on the CT examination. Stefan Grier MD Physical Exam HEENT: Normocephalic; atraumatic; generalized facial edema CHEST: Respirations synchronized with vent via ETT , diminished breath sounds CARDIAC: RRR ABDOMEN: Large obtunded distended, firm, active bowel sounds, Dobhoff , scrotal edema, drainage bags over right lower quadrant and left lower quadrant previous paracentesis sites EXTREMITIES: Generalized edema , 3-4+ bilateral upper and lower extremities SKIN: (+) jaundice , pale [employer]: Sedated (Faiza Medrano) Assessment and Plan Plan Assessment: - Nausea and vomiting- hematemesis x 2 days H/H currently 8.6/25.9 S/P 2 U PRBCs Has never had EGD or colonoscopy CT abdomen and pelvis W IV contrast (12/27) --> Diffusely abnormal liver likely secondary to hepatic steatosis and possible changes of cirrhosis. Splenomegaly. This could be secondary to portal hypertension. Moderate ascites. US gallbladder (12/27) Diffusely abnormal liver secondary to cirrhosis and hepatic steatosis. Gallbladder wall thickening, nonspecific. - Transaminitis- ETOH abuse- drinks 1.75 L of vodka every 2-3 days DF-42 Currently AST-324 ALT-91 Alk phos-144 T bili-8.4 - Coumadin with supratherapeutic INR- INR 15.7 on admission now S/P 4 U FFP and Vit K (hospital out of [facility]) [facility] with duodenal ischemia diagnosed in June at [facility]- has been on Coumadin since then - Elevated lipase- lipase 447 - Leukocytosis and persistent fevers - Hyponatremia- ? secondary to Potomania and emesis EGD (12/28) --> Esophageal varices grade - 3 columns a nipple in midesophgus was seen, possible prior banding or source of bleeding one band applied above it. Additional band were applied under the level of the above area no active bleeding. Retroflexed views revealed a hiatal hernia Paracentesis on 12/28/17 3000 ml of fluid removed, cx with no growth at 72 hours. Cytology negative for malignant cells. (01/02) Pt remains in ICU, sedated on Propofol and Precedex and mechanically ventilated via ETT. on Dayron for BP support. Remains on Protonix and Octreotide gtt. Coagulopathy- INR 1.6 LFTs trending down. T bili remains significantly elevated but trending down currently 18. On Pentoxifylline. Pt still spiking fevers, no steroids indicated at this time. Abdomen remains distended and firm, no BM. Dobbhoff to low suction. KUB (01/02) --> Stable bowel gas pattern most consistent with adynamic ileus. On Reglan q8hrs. (01/03) pt is still sedated. he is s/p Decompressive colonoscopy on 01/02 Abd X-ray today no dilated bowels LFTs trending down. T bili remains significantly elevated but trending down currently 16. On Pentoxifylline. slight drop in hgb, no bleeding reported Dobbhoff to intermittent suction (01/04) Pt remains sedated, TF started at 10 ml/hr. Rectal tube with brown liquid stools LFTs slightly better, hh stable 01/05/2018 patient remains sedated still requiring ventilator management, generalized upper and lower extremity edema including face scrotum and trunk. Continues to lose serous drainage from right lower and left lower abdomen from previous paracentesis sites left greater than right. No family present, Dobbhoff with Nepro at 10 cc an hour. Abdomen taut and distended but active bowel sounds noted. Abdominal x-ray done on showed no distended bowel. Patient is critically ill. Plan: TF at trickle rate, increased rate 10 cc an hour to reach goal rate at 55 daily if possible. Check residuals Reglan bowel regimen , as needed's and MiraLAX twice a day Monitor labs with special attention to hemoglobin, mild decreased today to 6.9 versus 7.1 on 526 Pentoxifylline Octreotide gtt Albumin Protonix iv Plan EGD in one week Supportive care Further recommendations based on clinical course and results of above Pt has been seen and examined by myself and Dr. Crews and this note is written on his behalf (Faiza Medrano) Physician Comments Patient seen and examined Agree with above Continue with current supportive care Monitor labs EGD in the next 1-2 days Consider further paracentesis to stop the leak from the old paracentesis site (John Crews MD) Faiza Medrano January 05, 2018 17:02 John Crews MD January 05, 2018 22:39
[2018-01-06] VITALS (19 sets, daily range): BP systolic 127–148; BP diastolic 68–73; PULSE 76–96; RESP 18–31; TEMP 98.1–98.8; O2SAT 94–100
[2018-01-06] MEDS: FUROSEMIDE 40 MG/4 ML VIAL IV PUSH SCH ×5 (00:22→23:08)
[2018-01-06] MEDS: ALBUMIN 25% INJ 100 ML IV SCH ×5 (00:22→23:06)
[2018-01-06] MEDS: PROPOFOL 1000 MG/100 ML INJ 100 ML IV PRN ×5 (01:28→20:37)
[2018-01-06] MEDS: PIPERACIL-TAZO 2.25 GM PREMIX 50 ML IV SCH ×4 (03:02→20:23)
[2018-01-06] MEDS: SODIUM BICARBONATE 8.4% INJ 150 MEQ in WATER STERILE FOR INJ 850 ML IV SCH (03:02)
[2018-01-06] MEDS: OCTREOTIDE INJ 500 MCG in SODIUM CHLORID 0.9% 500 ML INJ 499.5 ML IV SCH ×2 (03:02→22:55)
[2018-01-06] MEDS: PANTOPRAZOLE INJ 80 MG in SODIUM CHLORIDE 0.9% INJ 100 ML IV SCH ×2 (03:08→13:41)
[2018-01-06] MEDS: CHLORHEXIDINE GLUCONATE 2 % 1 PACK (2 CLOTHS) TOP SCH (03:09)
[2018-01-06] MEDS: INSULIN NovoLIN REGULAR SUPPLEMENTAL SCALE SQ SCH ×7 (04:00→23:17)
[2018-01-06 04:08] LABS: AUTOMATED NEUTROPHIL # 6.7 TH/MM3 (1.8-7.7); BASOPHIL # 0.2 TH/MM3 (0-0.2); BASOPHIL % 2.3 % (0.0-2.0); EOSINOPHIL # 0.2 TH/MM3 (0-0.4); EOSINOPHIL % 2.8 % (0.0-4.0); HEMATOCRIT 22.7 % (39.0-51.0); HEMOGLOBIN 7.6 GM/DL (13.0-17.0); LYMPH % 6.2 % (9.0-44.0); LYMPHOCYTE # 0.5 TH/MM3 (1.0-4.8); MEAN CELL VOLUME 86.1 FL (80.0-100.0); MEAN CORPUSCULAR HEMOGLOBIN 28.8 PG (27.0-34.0); MEAN CORPUSCULAR HGB CONC 33.4 % (32.0-36.0); MEAN PLATELET VOLUME 7.5 FL (7.0-11.0); MONO % 8.6 % (0.0-8.0); MONOCYTE # 0.7 TH/MM3 (0-0.9); NEUT % 80.1 % (16.0-70.0); PLATELET COUNT 145 TH/MM3 (150-450); RED BLOOD COUNT 2.64 MIL/MM3 (4.50-5.90); RED CELL DISTRIBUTION WIDTH 25.3 % (11.6-17.2); WHITE BLOOD COUNT 8.3 TH/MM3 (4.0-11.0)
[2018-01-06 04:46] LABS: ALBUMIN 3.8 GM/DL (3.4-5.0); ALKALINE PHOSPHATASE 56 U/L (45-117); ALT (GPT) 47 U/L (12-78); AST (GOT) 156 U/L (15-37); BICARBONATE 24.7 MEQ/L (21.0-32.0); BLOOD UREA NITROGEN 52 MG/DL (7-18); CALCIUM 8.3 MG/DL (8.5-10.1); CHLORIDE 103 MEQ/L (98-107); CREATININE 3.29 MG/DL (0.60-1.30); GLOMERULAR FILTRATION RATE 20 ML/MIN (>89); GLUCOSE,RANDOM 120 MG/DL (74-106); PHOSPHORUS 3.6 MG/DL (2.5-4.9); SODIUM (NA) 139 MEQ/L (136-145); TOTAL PROTEIN 6.7 GM/DL (6.4-8.2)
[2018-01-06] MEDS: PENTOXIFYLLINE 400 MG CONTROLLED RELEASE TAB PO SCH ×3 (06:00→20:23)
[2018-01-06] MEDS: ARTIFICIAL TEARS OPTH SOLN 15 ML BTL EACH EYE SCH ×3 (06:02→22:55)
[2018-01-06] MEDS: METOCLOPRAMIDE HCL 10 MG/2 ML VIAL IV PUSH SCH ×3 (06:10→21:39)
[2018-01-06] MEDS: LINEZOLID 600 MG PREMIX 300 ML IV SCH ×2 (06:11→18:16)
[2018-01-06 07:55] LABS: BANDS 23 % (0-6); LYMPHOCYTES 10 % (9-44); MONOCYTES 7 % (0-8); NEUTROPHIL # MANUAL DIFF 6.3 TH/MM3 (1.8-7.7); POLYS (SEG NEUTROPHILS) 53 % (16-70); TARGET CELLS 1+ (NORMAL)
[2018-01-06] MEDS: THIAMINE INJ 100 MG in SODIUM CHLORIDE 0.9% INJ 100 ML IV SCH (08:07)
[2018-01-06] MEDS: SODIUM CHLORIDE 0.9% FLUSH 10 ML FLUSH IV FLUSH SCH ×3 (08:07→20:23)
[2018-01-06] MEDS: CHLORHEXIDINE 0.12% (ORAL KIT) 15 ML CUP MT SCH ×2 (08:07→20:05)
[2018-01-06] MEDS: SENNOSIDES SYRUP 8.8 MG/5 ML CUP PO SCH ×2 (08:08→20:22)
[2018-01-06] MEDS: DOCUSATE SODIUM 100 MG/10 ML UDC PO SCH ×2 (08:08→20:22)
[2018-01-06] MEDS: POLYETHYLENE GLYCOL 17 GM PKG PO SCH ×2 (08:08→20:22)
[2018-01-06] MEDS: LACTULOSE SYRUP 20 GM/30 ML CUP PO SCH ×4 (08:08→20:22)
[2018-01-06] MEDS: LORazepam 1 MG TAB PO SCH (08:13)
--- NOTE | 2018-01-06 08:30 | HHI.CCPN ---
Subjective Remarks/Hospital Course Patient is a 52-year-old male with history of alcohol dependence, on chronic Coumadin for "abdominal vein thrombosis", history of hypertension who presented to the emergency department with complaints of increasing jaundice, increasing abdominal girth and vomiting jade blood multiple times over the last 2 days. Patient admits to being a heavy drinker he drinks about 1.75 L bottle hard liquor every 2 days. ER workup showed patient had a hemoglobin of 8.1, INR was 15.7. PTT 156.1, white count of 13.6 with 10% bands. Also sodium was noted to be 119, AST 439 ALT 115 and bilirubin of 7.6. A stat CT abdomen pelvis showed moderate ascites, probable cirrhosis and hepatic steatosis, splenomegaly, and gallstones. Patient had been ordered to receive 2 units of PRBC, and total 4 units of FFP. INR, Hb will be rechecked after this and additional FFP will be given accordingly. 10 mg vitamin K also ordered. Unfortunately hospital is out of [facility]. I evaluated the patient in the emergency department. He initially had an alcohol level of 135. At the time of my exam he is in moderate distress appears to be slightly tremulous. I have initiated CIWA protocol. I will also start its Rocephin for SBP prophylaxis. Patient had been started on IV Protonix infusion and octreotide which will be continued. Patient clinically also appears to have at least moderate ascites but I am unable to perform paracentesis due to elevated INR. 12/28: Currently resting in bed complaining of abdominal pain. Short of breath and tachypnea. Complaining of nausea currently. Remains on nasal cannula. Patient does not desire his mother's to have knowledge about his alcohol use. 12/29: Afebrile. Remains intubated post EGD yesterday due to worsening hypoxia. Currently on PSV trial 26/05 at 40%. Remains on dexmedetomidine drip and attempt to wean with alcohol use and likely progression to DTs. Banding of varices noted. Pentoxifylline 400 mg every 8 hours initiated with appropriate 12/30: Awake on dexmedetomidine drip at 1 mcg/kg/min. Following commands and attempting to write. Nods his head when states he feels the effects of alcohol withdrawals. Afebrile. Continues to leak from prior site of paracentesis. 12/31: Diminished urine output noted overnight. Increasing FiO2 requirement. Bladder pressures measured currently elevated around 25. Will place tube to suction and notify GI. Nephrology consult placed. Will need central line. 01/01: T-max 100. Currently 99. Meld score 34. Discriminant function is 34. Tamera alcohol scale score 7. Arousable the ventilator. FiO2 increased to 40- 60% overnight. 350 cc from NG tube overnight. 01/02: T-max 99.8. No bowel movement overnight. Abdomen remains distended. More ascites output from left lower quadrant previous paracentesis site. Arousable on the ventilator and follows commands on sedation vacation. Remains on PEEP of 12. FiO2 60%. 01/03: Patient remains intubated sedated very critical. FiO2 had to be increased to 70%. I have increase PEEP from 12-14. Chest x-ray remains unchanged. T-max 100.5. Urine output 1.3 L. BUN 42 creatinine 3.5 hemoglobin 7.4. Bedside ultrasound shows at least moderate ascites. Plan for thoracentesis for fluid removal and also will help with vent dynamic. 01/04: Persistent problems with oxygenation related to diffuse basilar atelectasis. Patient converted to airway pressure release ventilation this morning. Caloric intake probably on the high side in view of propofol infusion. Will reduce TPN to 60 cc/h. Enteral feedings at trickle rate. 01/05: Patient placed on APRV mode 01/04 with T-hi 5 sec Pres hi 30, with release volumes around 800 cc. Good oxygen saturation 30% FiO2. X-ray shows improvement in bilateral consolidation persistent left lower lobe infiltrate. Urine output 1.5 L also 1.5 L out from left paracentesis site. Transfuse 1 U PRBC 01/06: Remains critically ill but making some progress. Reduce PHigh to 26, T high to 4.5, if tolerated well, attempt to switch to PC/AC with PEEP 18-20 and rita iTime. Urine output adequate 2.3 L in 24 hours. Paracentesis site draining approximately 1.4 L despite paracentesis and removal of 3.5 L yesterday. Increase Lasix to 60 mg IV q6hr, Creat improved to 3.29 Objective Vital Signs Date Time Temp Pulse Resp B/P (MAP) Pulse Ox O2 Delivery O2 Flow Rate FiO2 01/06/18 07:10 100 30 01/06/18 06:00 88 01/06/18 04:00 98.3 31 140/68 (92) 01/05/18 07:41 Ventilator Intake and Output 01/06/18 01/06/18 01/07/18 08:00 16:00 00:00 Intake Total 862 ml Output Total 3050 ml Balance -2188 ml Result Diagram: 01/06/18 0354 01/06/18 0354 Imaging Last Impressions Chest X-Ray 01/01/18 0600 Signed Impressions: CONCLUSION: Hazy opacity in both lungs left greater than right which appears mildly improve d from the prior study. Liver Ultrasound 12/31/17 0000 Signed Impressions: CONCLUSION: 1. Diffuse increased echogenicity throughout the liver suggestive of fatty inf iltration and/or hepatocellular disease. 2. Hepatomegaly. 3. Thickened gallbladder wall at 12 mm. No definite gallstones are seen. As ca n be seen with chronic gallbladder disease. Abdomen X-Ray 12/30/17 0000 Signed Impressions: Service Date/Time: Saturday, December 30, 2017 14:28 - CONCLUSION: Dobbhoff tube tip in the stomach Stefan Lew MD Aorta CTA 12/28/17 0000 Signed Impressions: Service Date/Time: Thursday, December 28, 2017 21:00 - CONCLUSION: 1. Normal thoracic and abdominal aorta. No dissection/aneurysm seen. 2. Bibasilar consolidation and patchy densities in the upper lobes. 3. Hepatic steatosis with possible cirrhosis and moderate abdominal ascites. 4. Cholelithiasis. Aldair Francis MD Abdomen/Pelvis CT [id number] Signed Impressions: Service Date/Time: Wednesday, December 27, 2017 21:00 - CONCLUSION: 1. Diffusely abnormal liver likely secondary to hepatic steatosis and possible changes of cirrhosis. 2. Splenomegaly. This could be secondary to portal hypertension. 3. Moderate ascites. 4. Calcified gallstone. Stefan Grier MD Gall Bladder Ultrasound 12/27/17 0000 Signed Impressions: Service Date/Time: Wednesday, December 27, 2017 21:16 - CONCLUSION: 1. Diffusely abnormal liver secondary to cirrhosis and hepatic steatosis. 2. Gallbladder wall thickening. This is nonspecific. This can be seen with hepatic disease. It also can be seen with cholecystitis in the correct clinical situation. Gallstones were not demonstrated on the ultrasound examination but are clearly present on the CT examination. Stefan Grier MD Procedures Paracentesis EGD Objective Remarks GENERAL: 52-year-old male lying in bed orotracheally intubated, on APRV SKIN: Warm and dry. Jaundiced HEAD: Atraumatic. Normocephalic. EYES: Pupils equal and round about 2 millimeters, positive for conjunctival icterus. ENT: No nasal bleeding or discharge. Mucous membranes dry and pink. Orotracheally intubated NECK: Trachea midline. Cannot appreciate JVD due to body habitus CARDIOVASCULAR: Regular rate and rhythm. S1, S2. No S4. Without murmur RESPIRATORY:Breath sounds equal bilaterally, but reduced in bases. On APRV mode with release volumes approx 800 CC GASTROINTESTINAL: Abdomen distended abdomen nontender obese. There is drainage from bilateral flanks, previous paracentesis sites. MUSCULOSKELETAL: Extremities -bilateral lower extreme 1+ pitting edema NEUROLOGICAL: Sedated but localizes to pain. No obvious cranial nerve deficits. Motor grossly within normal limits. Date of Insertion: December 31, 2017 Line: Central Venous Catheter Side: Left Location: Internal, Jugular A/P Assessment and Plan NEURO/PSYCH: Alcohol withdrawal Alcohol dependence On propofol drip for sedation while intubated Previously on CIWA protocol with Lorazepam. DC scheduled Ativan Supplement thiamine, folic acid and MVI with vitamin bag 3 days and switch to IV thiamine on 12/31 Alcohol cessation RESP: Acute hypoxemic respiratory failure Likely OHS, STAS APRV. P-high30, P-low 0, T-high 5.0, T-low 0.6, PS 5. Reduce Phigh to 26, T high to 4.5, if tolerated, change to PRVC with PEEP 18-20 Ventilator bundle. Albuterol/ipratropium aerosols every 6 hours, albuterol aerosols every 2 hours as needed dyspnea Chest x-ray in 01/05: Significant improvement in bilateral consolidation. Residual left lower lobe infiltrate. Repeat chest x-ray tomorrow CV: History of hypertension Fluid overload -Holding amlodipine 5 mg due to GI bleed and Spironolactone 50 mg p.o. daily -Systolic hypertension. As needed labetalol, Nitropaste and nicardipine drip to maintain systolic blood pressure less than 170 -Diuresis with Lasix per nephrology. 40 mg IV every 6 hours, will increase to 60 mg IV q6 in an attempt to achieve negative balance -DC bicarb infusion GI: Upper GI bleed secondary to esophageal varices Ascites/abdominal Liver cirrhosis/hepatic steatosis Cholelithiasis Elevated lipase Elevated ammonia Hypoalbuminemia EGD 12/28 revealed -esophageal varices/nipple midesophagus with 3 bands noted. Portal gastropathy. Hiatal hernia. Repeat EGD in 1-2 days per GI Dobbhoff tube now on trickle feeds. TPN at 60 mL/h reduced to 50 mL Pentoxifylline 400 mg every 8 hours. Continue pantoprazole infusion at 8 mg an hour, octreotide infusion at 25 mcg/ hr. Status post paracentesis 12/28-3 L. repeat paracentesis with 3.5L removed CT abdomen/pelvis revealed no sequelae of pancreatitis. CT aorta revealed no signs of dissection or leakage. Lactulose 30 every 6 hours, docusate sodium liquid 100 mg twice daily, senna 8.8 mg twice daily and polyethylene glycol 17 g twice daily. 1 dose of methylnaltrexone 12 mg subcu 1 now. Mineral oil 3 cc 1 now. KUB revealed possible ileus. Repeat in a.m. 01/03, did not reveal ileus Continue metoclopramide 5 every 8. Having BM MELD score and discriminate function both 33. [place] alcoholic hepatitis 7 FEN//Endo: Hypocalcemia Hyponatremia -Monitor renal function closely. Sliding scale insulin Accu-Cheks with NovoLog/low regimen every 6 hours to maintain euglycemia ID: Probable sepsis Noted staph epi blood culture 12/31+ probable contamination Possible SBP Linezolid and piperacillin/tazobactam renally dosed DC Zyvox 01/06. No indication to continue at this time Repeat sputum cx 01/05 Pertinent cultures 12/31 -blood cultures 1 out of 4 staph epi. 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 Hb 6.9 INR 1.5 today. s/p 1 unit of PRBC -Serially monitor INR, phytonadione 5 mg given 12/31 -Hemoglobin level slowly trending downward RENAL: Acute kidney injury Possible hepatorenal syndrome Possible contrast nephropathy, vs HRS. Urine sodium 11. Urine creatinine elevated. Negative urine eosinophils. No hydronephrosis on CAT scan. Nephrology Dr. thacker. Furosemide 40 mg IV q6h creatinine currently 3.3. increase to 60 mg IV every 6 hours No hydronephrosis PROPH: -Bilateral lower extremity SCDs. IV pantoprazole infusion. Chemical DVT prophylaxis is contraindicated at this time LINES: -Utilize peripheral IVs, left IJ CVL day placed 12/31 Overall impression: This gentleman is critically ill with portal hypertension related to alcoholic cirrhosis. We are unable to wean from the ventilator and indeed have switched to a more aggressive mode of lung support, APRV. Critically ill but stable to making slight improvement Critical care 32 minutes. Chelsie Aviles MD January 06, 2018 08:30
[2018-01-06] MEDS: SODIUM CHLORIDE 23.4% INJ 5.5 MEQ, SODIUM ACETATE INJ 29.5 MEQ, POTASSIUM CHLORIDE INJ ... IV-CENTRAL SCH ×9 (11:33)
--- NOTE | 2018-01-06 12:38 | HHI.GIFU ---
Subjective Remarks Pt sedated and intubated (Sandra Fernandes) Objective Vitals I&O Vital Signs Date Time Temp Pulse Resp B/P (MAP) Pulse Ox O2 Delivery O2 Flow Rate FiO2 01/06/18 11:42 97 40 01/06/18 10:00 96 01/06/18 08:00 98.3 89 23 130/71 (90) 98 01/06/18 08:00 89 01/06/18 08:00 30 01/06/18 07:10 100 30 01/06/18 06:00 88 01/06/18 04:00 89 01/06/18 04:00 30 01/06/18 04:00 98.3 89 31 140/68 (92) 98 01/06/18 03:27 98 30 01/06/18 02:00 89 01/06/18 00:07 98 30 01/06/18 00:00 88 01/06/18 00:00 98.1 85 24 133/71 (91) 97 01/06/18 00:00 30 01/05/18 22:00 84 01/05/18 20:00 84 01/05/18 20:00 30 01/05/18 20:00 98.1 84 21 133/71 (91) 95 01/05/18 19:59 95 30 01/05/18 18:00 87 01/05/18 16:00 98.4 85 21 123/70 (87) 95 01/05/18 16:00 85 01/05/18 16:00 30 01/05/18 15:51 95 30 01/05/18 14:00 84 I/O 01/05/18 01/05/18 01/05/18 01/06/18 01/06/18 01/06/18 06:59 14:59 22:59 06:59 14:59 22:59 Intake Total 2333 ml 2331 ml 1603 ml 862 ml 48 ml Output Total 2650 ml 1600 ml 3050 ml Balance -317 ml 2331 ml 3 ml -2188 ml 48 ml IV Total 2021 ml 1651 ml 1300 ml 550 ml 48 ml Tube Feeding 112 ml 103 ml 112 ml Packed Cells 400 ml Blood Product IV Normal Saline Flush 280 ml Other 200 ml 200 ml 200 ml Output Urine Total 800 ml 850 ml 1400 ml Stool Total 1100 ml 200 ml 800 ml Drainage Total 750 ml 550 ml 850 ml Laboratory Laboratory Tests Test 01/06/18 00:00 01/06/18 03:54 Blood Gas Puncture Site RT RADIAL Blood Gas Patient Temperature 98.6 Blood Gas HCO3 23 Blood Gas Base Excess -1.5 Blood Gas Oxygen Saturation 94 Arterial Blood pH 7.40 Arterial Blood Partial Pressure CO2 38 Arterial Blood Partial Pressure O2 87 Arterial Blood Oxygen Content 9.9 Arterial Blood Carboxyhemoglobin 2.2 Arterial Blood Methemoglobin 1.1 Blood Gas Hemoglobin 7.4 Oxygen Delivery Device VENTILATOR Blood Gas Ventilator Setting APRV 4.5/0.8/26/10 Blood Gas Inspired Oxygen 30 White Blood Count 8.3 Red Blood Count 2.64 Hemoglobin 7.6 Hematocrit 22.7 Mean Corpuscular Volume 86.1 Mean Corpuscular Hemoglobin 28.8 Mean Corpuscular Hemoglobin Concent 33.4 Red Cell Distribution Width 25.3 Platelet Count 145 Mean Platelet Volume 7.5 Neutrophils (%) (Auto) 80.1 Lymphocytes (%) (Auto) 6.2 Monocytes (%) (Auto) 8.6 Eosinophils (%) (Auto) 2.8 Basophils (%) (Auto) 2.3 Neutrophils # (Auto) 6.7 Lymphocytes # (Auto) 0.5 Monocytes # (Auto) 0.7 Eosinophils # (Auto) 0.2 Basophils # (Auto) 0.2 CBC Comment AUTO DIFF Differential Total Cells Counted 100 Neutrophils % (Manual) 53 Band Neutrophils % 23 Lymphocytes % 10 Monocytes % 7 Eosinophils % 7 Neutrophils # (Manual) 6.3 Differential Comment FINAL DIFF MANUAL Platelet Estimate LOW Platelet Morphology Comment NORMAL Target Cells 1+ Blood Urea Nitrogen 52 Creatinine 3.29 Random Glucose 120 Total Protein 6.7 Albumin 3.8 Calcium Level 8.3 Phosphorus Level 3.6 Alkaline Phosphatase 56 Aspartate Amino Transf (AST/SGOT) 156 Alanine Aminotransferase (ALT/SGPT) 47 Total Bilirubin 14.0 Sodium Level 139 Potassium Level 3.4 Chloride Level 103 Carbon Dioxide Level 24.7 Anion Gap 11 Estimat Glomerular Filtration Rate 20 Date/Time Source Procedure Growth Status 01/02/18 08:38 Blood Peripheral Aerobic Blood Culture - Preliminary NO GROWTH IN 4 DAYS Resulted 01/02/18 08:38 Blood Peripheral Anaerobic Blood Culture - Preliminary NO GROWTH IN 4 DAYS Resulted 01/05/18 12:15 Fluid Peritoneal Fluid Gram Stain - Final Resulted 01/05/18 12:15 Fluid Peritoneal Fluid Body Fluid Culture Pending Resulted 01/05/18 09:50 Sputum Endotracheal Gram Stain - Final Resulted 01/05/18 09:50 Sputum Endotracheal Sputum Culture - Preliminary NO GROWTH IN 24 HOURS. Resulted 12/30/17 08:45 Urine Catheterized Urine Urine Culture - Final NO GROWTH IN 48 HOURS. Complete Imaging Last Impressions Chest X-Ray 01/05/18 0400 Signed Impressions: CONCLUSION: Considerably improved bibasilar consolidation, now with mild residual on the le ft. Lines and tubes unchanged. Abdomen X-Ray 01/03/18 0600 Signed Impressions: CONCLUSION: No dilated bowel. Liver Ultrasound 12/31/17 0000 Signed Impressions: CONCLUSION: 1. Diffuse increased echogenicity throughout the liver suggestive of fatty inf iltration and/or hepatocellular disease. 2. Hepatomegaly. 3. Thickened gallbladder wall at 12 mm. No definite gallstones are seen. As ca n be seen with chronic gallbladder disease. Aorta CTA 12/28/17 0000 Signed Impressions: Service Date/Time: Thursday, December 28, 2017 21:00 - CONCLUSION: 1. Normal thoracic and abdominal aorta. No dissection/aneurysm seen. 2. Bibasilar consolidation and patchy densities in the upper lobes. 3. Hepatic steatosis with possible cirrhosis and moderate abdominal ascites. 4. Cholelithiasis. Aldair Francis MD Abdomen/Pelvis CT [id number] Signed Impressions: Service Date/Time: Wednesday, December 27, 2017 21:00 - CONCLUSION: 1. Diffusely abnormal liver likely secondary to hepatic steatosis and possible changes of cirrhosis. 2. Splenomegaly. This could be secondary to portal hypertension. 3. Moderate ascites. 4. Calcified gallstone. Stefan Grier MD Gall Bladder Ultrasound 12/27/17 0000 Signed Impressions: Service Date/Time: Wednesday, December 27, 2017 21:16 - CONCLUSION: 1. Diffusely abnormal liver secondary to cirrhosis and hepatic steatosis. 2. Gallbladder wall thickening. This is nonspecific. This can be seen with hepatic disease. It also can be seen with cholecystitis in the correct clinical situation. Gallstones were not demonstrated on the ultrasound examination but are clearly present on the CT examination. Stefan Grier MD Physical Exam HEENT: Normocephalic; atraumatic CHEST: Respirations synchronized with vent via ETT CARDIAC: RRR ABDOMEN: Distended, firm, bowel sounds active. 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 Splenomegaly. This could be secondary to portal hypertension. Moderate ascites. US gallbladder (12/27) Diffusely abnormal liver secondary to cirrhosis and hepatic steatosis. Gallbladder wall thickening, nonspecific. 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 secondary to [place] and emesis EGD (12/28) --> Esophageal varices grade - 3 columns a nipple in midesophgus was seen, possible prior banding or source of bleeding one band applied above it. Additional band were applied under the level of the above area no active bleeding. Retroflexed views revealed a hiatal hernia Paracentesis on 12/28/17 3000 ml of fluid removed, cx with no growth at 72 hours. Cytology negative for malignant cells. Repeat paracentesis on 01/04 with 1.5 L removed (01/02) Pt remains in ICU, sedated on Propofol and Precedex and mechanically ventilated via ETT. on Dayron for BP support. Remains on Protonix and Octreotide gtt. Coagulopathy- INR 1.6 LFTs trending down. T bili remains significantly elevated but trending down currently 18. On Pentoxifylline. Pt still spiking fevers, no steroids indicated at this time. Abdomen remains distended and firm, no BM. Dobbhoff to low suction. KUB (01/02) --> Stable bowel gas pattern most consistent with adynamic ileus. On Reglan q8hrs. Decompressive colonoscopy on 01/02 --> Sigmoid diverticulosis, decompression tube placed KUB in AM revealed no dilated bowel (01/06) Pt remains sedated and intubated. Hgb dropped to 6.9 yesterday. 1 U PRBCs transfused. Bili remains significantly elevated but trending down. Increase in AST today. Pt on TF, vital running at 10 mL/hr. Also on TPN Abdomen distended and firm, fluid seeping from previous paracentesis sites, may benefit from repeat paracentesis Plan: EGD tomorrow Obtain consent Hold TF after MN Reglan Pentoxifylline Octreotide gtt Albumin Protonix Lactulose Supportive care Further recommendations based on clinical course and results of above Pt has been seen and examined by myself and Dr. Crews and this note is written on his behalf (Sandra Fernandes) Physician Comments Seen and examined with CIGAR WRAPPER, no active bleeding reported. Requiring high PEEP on the vent. Discussed with Dr. Aviles, EGD on hold for now. TF as tolerated. Repeat paracentesis today. (Ankit Persaud MD) Sandra Fernandes January 06, 2018 12:38 Ankit Persaud MD January 06, 2018 17:07
--- NOTE | 2018-01-06 12:39 | HHI.NPPN ---
Subjective History of Present Illness 52-year-old male, Alcoholic hepatitis/cirrhosis received contrast study and acute renal failure Objective Data Data 01/06/18 01/07/18 19:00 07:00 Intake Total 48 ml Balance 48 ml IV Total 48 ml Vital Signs Date Time Temp Pulse Resp B/P (MAP) Pulse Ox O2 Delivery O2 Flow Rate FiO2 01/06/18 11:42 97 40 01/06/18 10:00 96 01/06/18 08:00 98.3 89 23 130/71 (90) 98 01/06/18 08:00 89 01/06/18 08:00 30 01/06/18 07:10 100 30 01/06/18 06:00 88 01/06/18 04:00 89 01/06/18 04:00 30 01/06/18 04:00 98.3 89 31 140/68 (92) 98 01/06/18 03:27 98 30 01/06/18 02:00 89 01/06/18 00:07 98 30 01/06/18 00:00 88 01/06/18 00:00 98.1 85 24 133/71 (91) 97 01/06/18 00:00 30 01/05/18 22:00 84 01/05/18 20:00 84 01/05/18 20:00 30 01/05/18 20:00 98.1 84 21 133/71 (91) 95 01/05/18 19:59 95 30 01/05/18 18:00 87 01/05/18 16:00 98.4 85 21 123/70 (87) 95 01/05/18 16:00 85 01/05/18 16:00 30 01/05/18 15:51 95 30 01/05/18 14:00 84 -: 01/06/18 0354 01/06/18 0354 Physical Exam General Appearance: Well Developed, Well Nourished Neck Neck Exam: Neck Supple Pulmonary Resp Exam: Clear Bilaterally, Diminished Breath Sounds Cardiology CV Exam: Regular, Normal Sinus Rhythm Gastrointestinal/Abdomen GI Exam: Soft, Distended Extremeties Extremities Exam: Moderate Edema Assessment/Plan Problem List: (1) Acute renal failure ICD Codes: N17.9 - Acute kidney failure, unspecified Plan: Patient has liver cirrhosis and possible hepatorenal syndrome is considered, he did receive contrast studies as well, His creatinine stil high renal failure started on bicarbonate of albumin and Lasix Cr 3.2 Lasix increased to 60 mg every 6 hours Potassium low since his creatinine has improved I will give him 40 mEq IV as he is on diuretic Generalized edema Continue to monitor CMP Liver and Kidney function as Cr declined decompressive colonoscopy done Avoid nephrotoxins or dye studies (2) Upper GI bleed ICD Codes: K92.2 - Gastrointestinal hemorrhage, unspecified Plan: GI is following (3) Alcoholic cirrhosis ICD Codes: K70.30 - Alcoholic cirrhosis of liver without ascites Plan: Followed by GI (4) Coagulopathy ICD Codes: D68.9 - Coagulation defect, unspecified Plan: Patient has received blood product, FFP and PRBCs (5) Ascites ICD Codes: R18.8 - Other ascites Plan: Due to alcoholic cirrhosis (6) Hyponatremia ICD Codes: E87.1 - Hypo-osmolality and hyponatremia Plan: Sodium has improved Problem Qualifiers (1) Acute renal failure: Qualified Codes: N17.9 - Acute kidney failure, unspecified (2) Alcoholic cirrhosis: Qualified Codes: K70.31 - Alcoholic cirrhosis of liver with ascites (3) Ascites: Qualified Codes: K70.31 - Alcoholic cirrhosis of liver with ascites Ciro Elder MD January 06, 2018 12:39
[2018-01-06] MEDS ORDERED: POTASSIUM CHLOR 40 MEQ PREMIX 100 ML IV ONE (13:00)
[2018-01-06] MEDS ORDERED: ATROPINE SULFATE 1 MG/10 ML SYRINGE ONE (17:21)
--- NOTE | 2018-01-06 17:41 | PD.PROCEDR ---
Procedure Note Procedure Date of procedure: 01/06/2018 Procedure: Left lower quadrant paracentesis, ultrasound-guided, and drainage pigtail catheter placement Indication: Rapidly accumulated abdominal ascites Video Player Mechanic: Chelsie Aviles M.D. Details of procedure: Informed consent was obtained from patient's mother. The patient was laid supine. Ascites was localized with ultrasound device. The left lower quadrant was cleaned with ChloraPrep twice. Regional sterile drapes were applied. Other barrier precautions included sterile gloves and face mask. 1% lidocaine was used for local anesthesia. A skin incision was made with a scalpel blade. 18 G introducer needle was inserted into the ascitic fluid and biliary stained fluid was withdrawn, and a guidewire was placed, and needle was removed. Track was made with the 7 [place] dilator, followed by placement of 8 [place] pigtail catheter over the guidewire using Seldinger technique. The pigtail catheter was secured with stay fix, and connected to Pleur-evac with -20 wall suction. Initial output approximately 2 L of biliary stained ascitic fluid. Estimated blood loss: 1 cc Complications: None immediately. Chelsie Aviles MD January 06, 2018 17:41
[2018-01-06] MEDS ORDERED: ALBUMIN 25% INJ 50 ML IV ONE (17:45)
[2018-01-06] MEDS: SODIUM CHLORIDE 0.9% FLUSH 10 ML FLUSH IV FLUSH PRN ×2 (20:24→23:08)
[2018-01-07] VITALS (19 sets, daily range): BP systolic 86–142; BP diastolic 48–67; PULSE 80–90; RESP 18–20; TEMP 97.7–99; O2SAT 92–100
[2018-01-07] MEDS: PROPOFOL 1000 MG/100 ML INJ 100 ML IV PRN ×8 (00:02→21:58)
[2018-01-07] MEDS: PIPERACIL-TAZO 2.25 GM PREMIX 50 ML IV SCH ×4 (01:13→20:00)
[2018-01-07] MEDS: PANTOPRAZOLE INJ 80 MG in SODIUM CHLORIDE 0.9% INJ 100 ML IV SCH ×3 (01:14→20:30)
[2018-01-07] MEDS: CHLORHEXIDINE GLUCONATE 2 % 1 PACK (2 CLOTHS) TOP SCH (04:00)
[2018-01-07] MEDS: INSULIN NovoLIN REGULAR SUPPLEMENTAL SCALE SQ SCH ×6 (04:00→23:25)
[2018-01-07 05:26] LABS: AUTOMATED NEUTROPHIL # 6.6 TH/MM3 (1.8-7.7); BASOPHIL # 0.1 TH/MM3 (0-0.2); BASOPHIL % 1.6 % (0.0-2.0); EOSINOPHIL # 0.2 TH/MM3 (0-0.4); EOSINOPHIL % 2.1 % (0.0-4.0); HEMATOCRIT 22.8 % (39.0-51.0); HEMOGLOBIN 7.7 GM/DL (13.0-17.0); LYMPH % 6.6 % (9.0-44.0); LYMPHOCYTE # 0.6 TH/MM3 (1.0-4.8); MEAN CORPUSCULAR HEMOGLOBIN 29.2 PG (27.0-34.0); MEAN CORPUSCULAR HGB CONC 33.6 % (32.0-36.0); MEAN PLATELET VOLUME 7.3 FL (7.0-11.0); MONO % 11.3 % (0.0-8.0); MONOCYTE # 0.9 TH/MM3 (0-0.9); NEUT % 78.4 % (16.0-70.0); PLATELET COUNT 115 TH/MM3 (150-450); RED BLOOD COUNT 2.62 MIL/MM3 (4.50-5.90); RED CELL DISTRIBUTION WIDTH 26.5 % (11.6-17.2); WHITE BLOOD COUNT 8.4 TH/MM3 (4.0-11.0)
[2018-01-07] MEDS: PENTOXIFYLLINE 400 MG CONTROLLED RELEASE TAB PO SCH ×3 (05:34→20:34)
[2018-01-07] MEDS: METOCLOPRAMIDE HCL 10 MG/2 ML VIAL IV PUSH SCH ×3 (05:34→20:33)
[2018-01-07] MEDS: ALBUMIN 25% INJ 100 ML IV SCH ×4 (05:35→23:24)
[2018-01-07] MEDS: FUROSEMIDE 40 MG/4 ML VIAL IV PUSH SCH ×4 (05:35→23:25)
[2018-01-07] MEDS: ARTIFICIAL TEARS OPTH SOLN 15 ML BTL EACH EYE SCH ×3 (05:35→23:24)
[2018-01-07] MEDS: SODIUM CHLORIDE 0.9% FLUSH 10 ML FLUSH IV FLUSH PRN ×2 (05:36→20:33)
[2018-01-07 05:53] LABS: ALBUMIN 3.6 GM/DL (3.4-5.0); AST (GOT) 162 U/L (15-37); BICARBONATE 26.6 MEQ/L (21.0-32.0); BLOOD UREA NITROGEN 47 MG/DL (7-18); CALCIUM 8.4 MG/DL (8.5-10.1); CHLORIDE 103 MEQ/L (98-107); CREATININE 2.67 MG/DL (0.60-1.30); GLOMERULAR FILTRATION RATE 25 ML/MIN (>89); GLUCOSE,RANDOM 111 MG/DL (74-106); MAGNESIUM 2.3 MG/DL (1.5-2.5); SODIUM (NA) 143 MEQ/L (136-145)
[2018-01-07 05:56] LABS: ALKALINE PHOSPHATASE 52 U/L (45-117); ALT (GPT) 50 U/L (12-78); TOTAL BILIRUBIN ADULT 14.1 MG/DL (0.2-1.0); TOTAL PROTEIN 6.5 GM/DL (6.4-8.2)
--- NOTE | 2018-01-07 06:26 | RADRPT ---
EXAM DATE: 01/07/2018 6:22 AM EDT AGE/SEX: 52 years / Male INDICATIONS: Respiratory distress. CLINICAL DATA: This is the patient's subsequent encounter. Patient reports that signs and symptoms h ave been present for 4 - 6 days and indicates a pain score of Nonresponsive. MEDICAL/SURGICAL HISTORY: . Hypertension. Gastroesophageal reflux disease. Cirrhosis. None. COMPARISON: C, CHEST SINGLE AP, 01/05/2018. . FINDINGS: Lines and tubes are present not changed. There is opacity in the left lower lung is identified not si gnificantly changed since the prior exam. Mild case of pulmonary venous congestion may also be presen t. CONCLUSION: Hazy left lung base opacity not significantly changed and mild case of pulmonary venous congestion ma y be present as well. Electronically signed by: Jennifer Sanz MD 01/07/2018 6:24 AM EDT
--- NOTE | 2018-01-07 07:14 | HHI.CCPN ---
Subjective Remarks/Hospital Course Patient is a 52-year-old male with history of alcohol dependence, on chronic Coumadin for "abdominal vein thrombosis", history of hypertension who presented to the emergency department with complaints of increasing jaundice, increasing abdominal girth and vomiting jade blood multiple times over the last 2 days. Patient admits to being a heavy drinker he drinks about 1.75 L bottle hard liquor every 2 days. ER workup showed patient had a hemoglobin of 8.1, INR was 15.7. PTT 156.1, white count of 13.6 with 10% bands. Also sodium was noted to be 119, AST 439 ALT 115 and bilirubin of 7.6. A stat CT abdomen pelvis showed moderate ascites, probable cirrhosis and hepatic steatosis, splenomegaly, and gallstones. Patient had been ordered to receive 2 units of PRBC, and total 4 units of FFP. INR, Hb will be rechecked after this and additional FFP will be given accordingly. 10 mg vitamin K also ordered. Unfortunately hospital is out of [facility]. I evaluated the patient in the emergency department. He initially had an alcohol level of 135. At the time of my exam he is in moderate distress appears to be slightly tremulous. I have initiated CIWA protocol. I will also start its Rocephin for SBP prophylaxis. Patient had been started on IV Protonix infusion and octreotide which will be continued. Patient clinically also appears to have at least moderate ascites but I am unable to perform paracentesis due to elevated INR. 12/28: Currently resting in bed complaining of abdominal pain. Short of breath and tachypnea. Complaining of nausea currently. Remains on nasal cannula. Patient does not desire his mother's to have knowledge about his alcohol use. 12/29: Afebrile. Remains intubated post EGD yesterday due to worsening hypoxia. Currently on PSV trial 26/05 at 40%. Remains on dexmedetomidine drip and attempt to wean with alcohol use and likely progression to DTs. Banding of varices noted. Pentoxifylline 400 mg every 8 hours initiated with appropriate 12/30: Awake on dexmedetomidine drip at 1 mcg/kg/min. Following commands and attempting to write. Nods his head when states he feels the effects of alcohol withdrawals. Afebrile. Continues to leak from prior site of paracentesis. 12/31: Diminished urine output noted overnight. Increasing FiO2 requirement. Bladder pressures measured currently elevated around 25. Will place tube to suction and notify GI. Nephrology consult placed. Will need central line. 01/01: T-max 100. Currently 99. Meld score 34. Discriminant function is 34. Tamera alcohol scale score 7. Arousable the ventilator. FiO2 increased to 40- 60% overnight. 350 cc from NG tube overnight. 01/02: T-max 99.8. No bowel movement overnight. Abdomen remains distended. More ascites output from left lower quadrant previous paracentesis site. Arousable on the ventilator and follows commands on sedation vacation. Remains on PEEP of 12. FiO2 60%. 01/03: Patient remains intubated sedated very critical. FiO2 had to be increased to 70%. I have increase PEEP from 12-14. Chest x-ray remains unchanged. T-max 100.5. Urine output 1.3 L. BUN 42 creatinine 3.5 hemoglobin 7.4. Bedside ultrasound shows at least moderate ascites. Plan for thoracentesis for fluid removal and also will help with vent dynamic. 01/04: Persistent problems with oxygenation related to diffuse basilar atelectasis. Patient converted to airway pressure release ventilation this morning. Caloric intake probably on the high side in view of propofol infusion. Will reduce TPN to 60 cc/h. Enteral feedings at trickle rate. 01/05: Patient placed on APRV mode 01/04 with T-hi 5 sec Pres hi 30, with release volumes around 800 cc. Good oxygen saturation 30% FiO2. X-ray shows improvement in bilateral consolidation persistent left lower lobe infiltrate. Urine output 1.5 L also 1.5 L out from left paracentesis site. Transfuse 1 U PRBC 01/06: Remains critically ill but making some progress. Reduce PHigh to 26, T high to 4.5, if tolerated well, attempt to switch to PC/AC with PEEP 18-20 and rita iTime. Urine output adequate 2.3 L in 24 hours. Paracentesis site draining approximately 1.4 L despite paracentesis and removal of 3.5 L yesterday. Increase Lasix to 60 mg IV q6hr, Creat improved to 3.29 01/07: Oxygenation modestly improved with very aggressive mean airway pressures , continue PEEP 1820. Abdominal girth and ascites have conspired to reduce functional residual capacity. Now a permanent peritoneal drain is in place and we will attempt to make some progress with gas exchange. Between the intractable ascites, morbid obesity, and respiratory failure it will be very difficult to remove this patient from positive pressure ventilation. Objective Vital Signs Date Time Temp Pulse Resp B/P (MAP) Pulse Ox O2 Delivery O2 Flow Rate FiO2 01/07/18 04:30 96 40 01/07/18 02:00 85 01/07/18 00:00 99.0 18 142/60 (87) 01/05/18 07:41 Ventilator Intake and Output 01/07/18 01/07/18 01/08/18 08:00 16:00 00:00 Intake Total 735 ml Balance 735 ml Result Diagram: 01/07/18 0500 01/07/18 0500 Imaging Last Impressions Chest X-Ray 01/01/18 0600 Signed Impressions: CONCLUSION: Hazy opacity in both lungs left greater than right which appears mildly improve d from the prior study. Liver Ultrasound 12/31/17 0000 Signed Impressions: CONCLUSION: 1. Diffuse increased echogenicity throughout the liver suggestive of fatty inf iltration and/or hepatocellular disease. 2. Hepatomegaly. 3. Thickened gallbladder wall at 12 mm. No definite gallstones are seen. As ca n be seen with chronic gallbladder disease. Abdomen X-Ray 12/30/17 0000 Signed Impressions: Service Date/Time: Saturday, December 30, 2017 14:28 - CONCLUSION: Dobbhoff tube tip in the stomach Stefan Lew MD Aorta CTA 12/28/17 0000 Signed Impressions: Service Date/Time: Thursday, December 28, 2017 21:00 - CONCLUSION: 1. Normal thoracic and abdominal aorta. No dissection/aneurysm seen. 2. Bibasilar consolidation and patchy densities in the upper lobes. 3. Hepatic steatosis with possible cirrhosis and moderate abdominal ascites. 4. Cholelithiasis. Aldair Francis MD Abdomen/Pelvis CT [id number]/27/[id number] Signed Impressions: Service Date/Time: Wednesday, December 27, 2017 21:00 - CONCLUSION: 1. Diffusely abnormal liver likely secondary to hepatic steatosis and possible changes of cirrhosis. 2. Splenomegaly. This could be secondary to portal hypertension. 3. Moderate ascites. 4. Calcified gallstone. Stefan Grier MD Gall Bladder Ultrasound 12/27/17 0000 Signed Impressions: Service Date/Time: Wednesday, December 27, 2017 21:16 - CONCLUSION: 1. Diffusely abnormal liver secondary to cirrhosis and hepatic steatosis. 2. Gallbladder wall thickening. This is nonspecific. This can be seen with hepatic disease. It also can be seen with cholecystitis in the correct clinical situation. Gallstones were not demonstrated on the ultrasound examination but are clearly present on the CT examination. Stefan Grier MD Procedures Paracentesis EGD Objective Remarks GENERAL: 52-year-old male lying in bed orotracheally intubated, on APRV SKIN: Warm and dry. Jaundiced HEAD: Atraumatic. Normocephalic. EYES: Pupils equal and round about 3 millimeters, positive for conjunctival icterus. ENT: No nasal bleeding or discharge. Mucous membranes dry and pink. Orotracheally intubated NECK: Trachea midline. Cannot appreciate JVD due to body habitus CARDIOVASCULAR: Regular rate and rhythm. S1, S2. No S4. Without murmur RESPIRATORY:Breath sounds equal bilaterally, but reduced in bases. Back on assist control ventilation with PEEP of 18. GASTROINTESTINAL: Abdomen distended abdomen nontender obese. There is drainage from bilateral flanks, previous paracentesis sites. Peritoneal drain in place now. MUSCULOSKELETAL: Extremities -bilateral lower extreme 1+ pitting edema NEUROLOGICAL: Sedated but localizes to pain. No obvious cranial nerve deficits. Motor grossly within normal limits. Date of Insertion: December 31, 2017 Line: Central Venous Catheter Side: Left Location: Internal, Jugular A/P Assessment and Plan NEURO/PSYCH: Alcohol withdrawal Alcohol dependence On propofol drip for sedation while intubated Previously on CIWA protocol with Lorazepam. DC scheduled Ativan Supplement thiamine, folic acid and MVI with vitamin bag 3 days and switch to IV thiamine on 12/31 Alcohol cessation RESP: Acute hypoxemic respiratory failure Likely OHS, STAS APRV. P-high30, P-low 0, T-high 5.0, T-low 0.6, PS 5. Reduce Phigh to 26, T high to 4.5, if tolerated, change to PRVC with PEEP 18-20 Ventilator bundle. Albuterol/ipratropium aerosols every 6 hours, albuterol aerosols every 2 hours as needed dyspnea Chest x-ray in 01/05: Significant improvement in bilateral consolidation. Residual left lower lobe infiltrate. Repeat chest x-ray tomorrow PRBC ventilation reinstituted 01/07. CV: History of hypertension Fluid overload -Holding amlodipine 5 mg due to GI bleed and Spironolactone 50 mg p.o. daily -Systolic hypertension. As needed labetalol, Nitropaste and nicardipine drip to maintain systolic blood pressure less than 170 -Diuresis with Lasix per nephrology. 40 mg IV every 6 hours, will increase to 60 mg IV q6 in an attempt to achieve negative balance -DC bicarb infusion GI: Upper GI bleed secondary to esophageal varices Ascites/abdominal Liver cirrhosis/hepatic steatosis Cholelithiasis Elevated lipase Elevated ammonia Hypoalbuminemia EGD 12/28 revealed -esophageal varices/nipple midesophagus with 3 bands noted. Portal gastropathy. Hiatal hernia. Repeat EGD in 1-2 days per GI Dobbhoff tube now on trickle feeds. TPN at 60 mL/h reduced to 50 mL Pentoxifylline 400 mg every 8 hours. Continue pantoprazole infusion at 8 mg an hour, octreotide infusion at 25 mcg/ hr. Status post paracentesis 12/28-3 L. repeat paracentesis with 3.5L removed CT abdomen/pelvis revealed no sequelae of pancreatitis. CT aorta revealed no signs of dissection or leakage. Lactulose 30 every 6 hours, docusate sodium liquid 100 mg twice daily, senna 8.8 mg twice daily and polyethylene glycol 17 g twice daily. 1 dose of methylnaltrexone 12 mg subcu 1 now. Mineral oil 3 cc 1 now. KUB revealed possible ileus. Repeat in a.m. 01/03, did not reveal ileus Continue metoclopramide 5 every 8. Having BM MELD score and discriminate function both 33. Tamera alcoholic hepatitis 7 FEN//Endo: Hypocalcemia Hyponatremia -Monitor renal function closely. Sliding scale insulin Accu-Cheks with NovoLog/low regimen every 6 hours to maintain euglycemia ID: Probable sepsis Noted staph epi blood culture 12/31+ probable contamination Possible SBP Linezolid and piperacillin/tazobactam renally dosed DC Zyvox 01/06. No indication to continue at this time Repeat sputum cx 01/05 Pertinent cultures 12/31 -blood cultures 1 out of 4 staph epi. 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 Hb 6.9 INR 1.5 today. s/p 1 unit of PRBC -Serially monitor INR, phytonadione 5 mg given 12/31 -Hemoglobin level slowly trending downward RENAL: Acute kidney injury Possible hepatorenal syndrome Possible contrast nephropathy, vs HRS. Urine sodium 11. Urine creatinine elevated. Negative urine eosinophils. No hydronephrosis on CAT scan. Nephrology Dr. thacker. Furosemide 40 mg IV q6h creatinine currently 3.3. increase to 60 mg IV every 6 hours No hydronephrosis PROPH: -Bilateral lower extremity SCDs. IV pantoprazole infusion. Chemical DVT prophylaxis is contraindicated at this time LINES: -Utilize peripheral IVs, left IJ CVL day placed 12/31 Overall impression: This gentleman is critically ill with portal hypertension related to alcoholic cirrhosis. We are unable to wean from the ventilator and indeed have switched to a more aggressive mode of lung support with PEEP elevated. Gas is exchanged as long as the ascites is continually removed through the peritoneal drain. The fluid and electrolyte losses associated with this however will result in room failure. This is pretty much intractable situation brought on by end-stage hepatic failure. The patient is unlikely to survive this hospitalization. Critical care 38 minutes. Uri Chavez MD January 07, 2018 07:14
[2018-01-07] MEDS: CHLORHEXIDINE 0.12% (ORAL KIT) 15 ML CUP MT SCH ×2 (08:00→19:57)
[2018-01-07 08:34] LABS: BANDS 20 % (0-6); LYMPHOCYTES 6 % (9-44); MONOCYTES 7 % (0-8); NEUTROPHIL # MANUAL DIFF 7.1 TH/MM3 (1.8-7.7); POLYS (SEG NEUTROPHILS) 64 % (16-70)
[2018-01-07 08:36] LABS: TARGET CELLS 1+ (NORMAL)
[2018-01-07] MEDS: THIAMINE INJ 100 MG in SODIUM CHLORIDE 0.9% INJ 100 ML IV SCH (08:41)
[2018-01-07] MEDS: SODIUM CHLORIDE 0.9% FLUSH 10 ML FLUSH IV FLUSH SCH ×3 (08:41→19:58)
[2018-01-07] MEDS: DOCUSATE SODIUM 100 MG/10 ML UDC PO SCH ×2 (08:41→20:28)
[2018-01-07] MEDS: LACTULOSE SYRUP 20 GM/30 ML CUP PO SCH ×4 (08:42→20:28)
[2018-01-07] MEDS: SENNOSIDES SYRUP 8.8 MG/5 ML CUP PO SCH ×2 (08:42→20:30)
[2018-01-07] MEDS: POLYETHYLENE GLYCOL 17 GM PKG PO SCH ×2 (08:42→20:29)
[2018-01-07] MEDS: SODIUM CHLORIDE 23.4% INJ 5.5 MEQ, SODIUM ACETATE INJ 29.5 MEQ, POTASSIUM CHLORIDE INJ ... IV-CENTRAL SCH ×9 (09:02)
--- NOTE | 2018-01-07 10:43 | HHI.GIFU ---
Subjective Remarks Remains sedated and mechanically ventilated, no family at bedside (Sandra Fernandes) Objective Vitals I&O Vital Signs Date Time Temp Pulse Resp B/P (MAP) Pulse Ox O2 Delivery O2 Flow Rate FiO2 01/07/18 08:00 40 01/07/18 08:00 97.9 90 20 128/66 (86) 98 01/07/18 08:00 87 01/07/18 07:30 99 40 01/07/18 06:00 86 01/07/18 04:30 96 40 01/07/18 04:00 40 01/07/18 04:00 85 01/07/18 04:00 98.3 81 18 135/67 (89) 93 01/07/18 02:00 85 01/07/18 01:06 92 40 01/07/18 00:00 99.0 81 18 142/60 (87) 94 01/07/18 00:00 40 01/07/18 00:00 81 01/06/18 22:15 94 40 01/06/18 22:00 80 01/06/18 20:00 80 01/06/18 20:00 40 01/06/18 20:00 98.3 80 18 127/68 (87) 100 01/06/18 19:24 99 40 01/06/18 18:00 76 01/06/18 16:00 98.8 82 18 133/68 (89) 99 01/06/18 16:00 30 01/06/18 16:00 90 01/06/18 15:33 99 40 01/06/18 14:00 86 01/06/18 12:00 30 01/06/18 12:00 90 01/06/18 12:00 98.3 90 18 148/73 (98) 100 01/06/18 11:42 97 40 I/O 01/06/18 01/06/18 01/06/18 01/07/18 01/07/18 01/07/18 07:00 15:00 23:00 07:00 15:00 23:00 Intake Total 862 ml 48 ml 598 ml 1196 ml Output Total 3050 ml 8350.0 ml 7135 ml Balance -2188 ml 48 ml -7752.0 ml -5939 ml IV Total 550 ml 48 ml 598 ml 932 ml Tube Feeding 112 ml 64 ml Tube Irrigant 200 ml Other 200 ml Output Urine Total 1400 ml 1850 ml 2300 ml Stool Total 800 ml 500 ml 500 ml Gastric Drainage Total 0 ml 210 ml Tube Feeding Residual Discard 200.0 ml Drainage Total 850 ml 5800 ml 4125 ml Laboratory Laboratory Tests Test 01/07/18 05:00 White Blood Count 8.4 Red Blood Count 2.62 Hemoglobin 7.7 Hematocrit 22.8 Mean Corpuscular Volume 87.0 Mean Corpuscular Hemoglobin 29.2 Mean Corpuscular Hemoglobin Concent 33.6 Red Cell Distribution Width 26.5 Platelet Count 115 Mean Platelet Volume 7.3 Neutrophils (%) (Auto) 78.4 Lymphocytes (%) (Auto) 6.6 Monocytes (%) (Auto) 11.3 Eosinophils (%) (Auto) 2.1 Basophils (%) (Auto) 1.6 Neutrophils # (Auto) 6.6 Lymphocytes # (Auto) 0.6 Monocytes # (Auto) 0.9 Eosinophils # (Auto) 0.2 Basophils # (Auto) 0.1 CBC Comment AUTO DIFF Differential Total Cells Counted 100 Neutrophils % (Manual) 64 Band Neutrophils % 20 Lymphocytes % 6 Monocytes % 7 Eosinophils % 3 Neutrophils # (Manual) 7.1 Differential Comment FINAL DIFF MANUAL Platelet Estimate LOW Platelet Morphology Comment NORMAL Target Cells 1+ Blood Urea Nitrogen 47 Creatinine 2.67 Random Glucose 111 Total Protein 6.5 Albumin 3.6 Calcium Level 8.4 Magnesium Level 2.3 Alkaline Phosphatase 52 Aspartate Amino Transf (AST/SGOT) 162 Alanine Aminotransferase (ALT/SGPT) 50 Total Bilirubin 14.1 Sodium Level 143 Potassium Level 3.0 Chloride Level 103 Carbon Dioxide Level 26.6 Anion Gap 13 Estimat Glomerular Filtration Rate 25 Date/Time Source Procedure Growth Status 01/02/18 08:38 Blood Peripheral Aerobic Blood Culture - Preliminary NO GROWTH IN 4 DAYS Resulted 01/02/18 08:38 Blood Peripheral Anaerobic Blood Culture - Preliminary NO GROWTH IN 4 DAYS Resulted 01/05/18 12:15 Fluid Peritoneal Fluid Gram Stain - Final Resulted 01/05/18 12:15 Fluid Peritoneal Fluid Body Fluid Culture - Preliminary NO GROWTH IN 24 HOURS. Resulted 01/05/18 09:50 Sputum Endotracheal Gram Stain - Final Resulted 01/05/18 09:50 Sputum Endotracheal Sputum Culture - Preliminary NO GROWTH IN 24 HOURS. Resulted 12/30/17 08:45 Urine Catheterized Urine Urine Culture - Final NO GROWTH IN 48 HOURS. Complete Imaging Last Impressions Chest X-Ray 01/07/18599 Signed Impressions: CONCLUSION: Hazy left lung base opacity not significantly changed and mild case of pulmonar y venous congestion may be present as well. Abdomen X-Ray 01/03/18599 Signed Impressions: CONCLUSION: No dilated bowel. Liver Ultrasound 12/31/17 Signed Impressions: CONCLUSION: 1. Diffuse increased echogenicity throughout the liver suggestive of fatty inf iltration and/or hepatocellular disease. 2. Hepatomegaly. 3. Thickened gallbladder wall at 12 mm. No definite gallstones are seen. As ca n be seen with chronic gallbladder disease. Aorta CTA 12/28/17 Signed Impressions: Service Date/Time: Thursday, December 28, 2017 21:00 - CONCLUSION: 1. Normal thoracic and abdominal aorta. No dissection/aneurysm seen. 2. Bibasilar consolidation and patchy densities in the upper lobes. 3. Hepatic steatosis with possible cirrhosis and moderate abdominal ascites. 4. Cholelithiasis. Aldair Francis MD Abdomen/Pelvis CT 12/27/171921 Signed Impressions: Service Date/Time: Wednesday, December 27, 2017 21:00 - CONCLUSION: 1. Diffusely abnormal liver likely secondary to hepatic steatosis and possible changes of cirrhosis. 2. Splenomegaly. This could be secondary to portal hypertension. 3. Moderate ascites. 4. Calcified gallstone. Stefan Grier MD Gall Bladder Ultrasound 12/27/17 Signed Impressions: Service Date/Time: Wednesday, December 27, 2017 21:16 - CONCLUSION: 1. Diffusely abnormal liver secondary to cirrhosis and hepatic steatosis. 2. Gallbladder wall thickening. This is nonspecific. This can be seen with hepatic disease. It also can be seen with cholecystitis in the correct clinical situation. Gallstones were not demonstrated on the ultrasound examination but are clearly present on the CT examination. Stefan Grier MD Physical Exam HEENT: Normocephalic; atraumatic CHEST: Respirations synchronized with vent via ETT CARDIAC: RRR ABDOMEN: Distended, firm, bowel sounds active. Dobbhoff clampaed. 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 Splenomegaly. This could be secondary to portal hypertension. Moderate ascites. US gallbladder (12/27) Diffusely abnormal liver secondary to cirrhosis and hepatic steatosis. Gallbladder wall thickening, nonspecific. - Transaminitis- ETOH abuse- drinks 1.75 L of vodka every 2-3 days DF-42 Currently AST-324 ALT-91 Alk phos-144 T bili-8.4 - Coumadin with supratherapeutic INR- INR 15.7 on admission now S/P 4 U FFP and Vit K (hospital out of [facility]) SMV with duodenal ischemia diagnosed in June at [facility]- has been on Coumadin since then - Elevated lipase- lipase 447 - Leukocytosis and persistent fevers - Hyponatremia- ? secondary to Potomania and emesis EGD (12/28) --> Esophageal varices grade - 3 columns a nipple in midesophgus was seen, possible prior banding or source of bleeding one band applied above it. Additional band were applied under the level of the above area no active bleeding. Retroflexed views revealed a hiatal hernia Paracentesis on 12/28/17 3000 ml of fluid removed, cx with no growth at 72 hours. Cytology negative for malignant cells. Repeat paracentesis on 01/04 with 1.5 L removed (01/02) Pt remains in ICU, sedated on Propofol and Precedex and mechanically ventilated via ETT. on Dayron for BP support. Remains on Protonix and Octreotide gtt. Coagulopathy- INR 1.6 LFTs trending down. T bili remains significantly elevated but trending down currently 18. On Pentoxifylline. Pt still spiking fevers, no steroids indicated at this time. Abdomen remains distended and firm, no BM. Dobbhoff to low suction. KUB (01/02) --> Stable bowel gas pattern most consistent with adynamic ileus. On Reglan q8hrs. Decompressive colonoscopy on 01/02 --> Sigmoid diverticulosis, decompression tube placed KUB in AM revealed no dilated bowel (01/06) Pt remains sedated and intubated. Hgb dropped to 6.9 yesterday. 1 U PRBCs transfused. Bili remains significantly elevated but trending down. Increase in AST today. Pt on TF, vital running at 10 mL/hr. Also on TPN Abdomen distended and firm, fluid seeping from previous paracentesis sites, may benefit from repeat paracentesis (01/07) Pt remains critically ill, high level of PEEP currently at 16. EGD on hold. Repeat paracentesis done last night with pigtail catheter placed and secured. Plan: EGD on hold Restart TF Reglan Pentoxifylline Octreotide gtt Albumin Protonix Lactulose Pt remains critically ill, further recommendations based on clinical course Pt has been seen and examined by myself and Dr. Persaud and this note is written on his behalf (Sandra Fernandes) Physician Comments Bleeding at paracentesis site. No gi bleeding. EGD once cleared by Dr Aviles (Ankit Persaud MD) Sandra Fernandes January 07, 2018 10:43 Ankit Persaud MD January 07, 2018 12:17
--- NOTE | 2018-01-07 13:55 | HHI.NPPN ---
Subjective History of Present Illness 52-year-old male, Alcoholic hepatitis/cirrhosis received contrast study and acute renal failure Objective Data Data Vital Signs Date Time Temp Pulse Resp B/P (MAP) Pulse Ox O2 Delivery O2 Flow Rate FiO2 01/07/18 12:12 98 40 01/07/18 10:00 80 01/07/18 08:00 40 01/07/18 08:00 97.9 90 20 128/66 (86) 98 01/07/18 08:00 87 01/07/18 07:30 99 40 01/07/18 06:00 86 01/07/18 04:30 96 40 01/07/18 04:00 40 01/07/18 04:00 85 01/07/18 04:00 98.3 81 18 135/67 (89) 93 01/07/18 02:00 85 01/07/18 01:06 92 40 01/07/18 00:00 99.0 81 18 142/60 (87) 94 01/07/18 00:00 40 01/07/18 00:00 81 01/06/18 22:15 94 40 01/06/18 22:00 80 01/06/18 20:00 80 01/06/18 20:00 40 01/06/18 20:00 98.3 80 18 127/68 (87) 100 01/06/18 19:24 99 40 01/06/18 18:00 76 01/06/18 16:00 98.8 82 18 133/68 (89) 99 01/06/18 16:00 30 01/06/18 16:00 90 01/06/18 15:33 99 40 01/06/18 14:00 86 -: 01/07/18 0500 01/07/18 0500 Physical Exam General Appearance: Well Developed, Well Nourished Neck Neck Exam: Neck Supple Pulmonary Resp Exam: Clear Bilaterally, Diminished Breath Sounds Cardiology CV Exam: Regular, Normal Sinus Rhythm Gastrointestinal/Abdomen GI Exam: Soft, Distended Extremeties Extremities Exam: Moderate Edema Assessment/Plan Problem List: (1) Acute renal failure ICD Codes: N17.9 - Acute kidney failure, unspecified Plan: Patient has liver cirrhosis and possible hepatorenal syndrome is considered, he did receive contrast studies as well, His creatinine stil high renal failure started on bicarbonate of albumin and Lasix Cr 2.6 Lasix 60 mg every 6 hours UOP 4.1 L K Low KCL 40 MEQ X 1 ordered Potassium low since his creatinine has improved I will give him 40 mEq IV as he is on diuretic Generalized edema Continue to monitor CMP Liver and Kidney function as Cr declined decompressive colonoscopy done Avoid nephrotoxins or dye studies (2) Upper GI bleed ICD Codes: K92.2 - Gastrointestinal hemorrhage, unspecified Plan: GI is following (3) Alcoholic cirrhosis ICD Codes: K70.30 - Alcoholic cirrhosis of liver without ascites Plan: Followed by GI (4) Coagulopathy ICD Codes: D68.9 - Coagulation defect, unspecified Plan: Patient has received blood product, FFP and PRBCs (5) Ascites ICD Codes: R18.8 - Other ascites Plan: Due to alcoholic cirrhosis (6) Hyponatremia ICD Codes: E87.1 - Hypo-osmolality and hyponatremia Plan: Sodium has improved Problem Qualifiers (1) Acute renal failure: Qualified Codes: N17.9 - Acute kidney failure, unspecified (2) Alcoholic cirrhosis: Qualified Codes: K70.31 - Alcoholic cirrhosis of liver with ascites (3) Ascites: Qualified Codes: K70.31 - Alcoholic cirrhosis of liver with ascites Ciro Elder MD January 07, 2018 13:55
[2018-01-07] MEDS ORDERED: POTASSIUM CHLOR 40 MEQ PREMIX 100 ML IV ONE (14:00)
[2018-01-07] MEDS ORDERED: POTASSIUM CHLOR 40 MEQ PREMIX 100 ML IV SCH (14:00)
--- NOTE | 2018-01-07 16:07 | PD.CONS ---
Consult Service Palliative Care . Consult Requested By Dr. Chavez . Primary Care Physician No Primary Care Physician . Reason for Consultation a. To assist with evaluation and management of symptoms including: dyspnea, pain. b. To assist medical decision maker(s) with: better understanding of current medical conditions; weighing benefits/burdens of medical treatment options; making medical treatment decisions. . (Shana Stevens) HPI History of Present Illness Mr. 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 Patient presented to [facility] on 12/27/17 with jaundice, increased abdominal distention and pain, vomiting blood on multiple occasions in the 2 days prior to presentation. Patient admitted to being a heavy drinker, consuming about 1.75 L bottle hard liquor every 2 days. Initial ER workup revealed: * WBC 13.6 with 10% bands, hemoglobin 8.1 * INR was 15.7. PTT 156.1 * sodium 119, AST 439 ALT 115 and bilirubin of 7.6. * Alcohol level 135 * CT abdomen pelvis showed moderate ascites, probable cirrhosis and hepatic steatosis, splenomegaly, and gallstones. * Gall bladder US - diffusely abnormal liver secondary to cirrhosis and hepatic steatosis, gall bladder wall thickening, nonspecific, no gallstones. * Aorta CTA - normal thoracic and abdominal aorta, no dissection/ aneurysm seen ; bibasilar consolidation and patchy densities in upper lobes, hepatic steatosis with cirrhosis and moderate abdominal ascites, cholelithiasis. Patient was given 2 units of PRBC and total 4 units of FFP. 10 mg vitamin K also ordered. Was unable to have paracentesis for moderate ascites due to elevated INR. He was on Dexmedetomidine for alcohol withdrawal. Gastroenterology , Dr. Matthews was consulted. Patient underwent EGD with band ligation of grade 3 varices on 12/28/17 and remained intubated post procedure due to worsening hypoxia. Patient underwent paracentesis on 12/28/17 with removal of 3000mlL fluid (cytology negative malignant cells). Post paracentesis he continued leaking fluid from paracentesis site. * 12/31/17 - Liver US - diffuse increased echogenicity throughout the liver suggestive of fatty infiltration and/or hepatocellular disease, hepatomegaly, thickened gallbladder wall 12mm, no gallstones, chronic gallbladder disease. Nephrology, Dr. Mary Beth Elder was consulted for worsening renal function with concern for possible hepatorenal failure. Recommendations to follow renal function, fluids, diuresis and avoidance of nephrotoxins, dye studies. Since admission patient remains critically ill in ICU on mech vent unable to wean from mech vent (positive pressure ventilation) due to intractable ascites, morbid obesity and respiratory failure. He has had permanent peritoneal drain placed which was draining copious amounts of bloody ascites (5 liters post placement), nurse indicates drain has now stopped draining despite flushing. He has required transfusions for anemia. He is too unstable for further GI workup. He became hypotensive on 01/07/18, has order for Levophed if needed. On TPN. Palliative care was consulted to assist with further clarification of medical treatment goals in this patient dying of hepatic failure. . Function/Cognitive Trajectory Patient has been living with his mother for the past 5 years after he left his in OR. Mother reports he has sedentary lifestyle. Has had trouble keeping jobs. He was drinking heavily, though notes indicate he did not want his mother to know about his drinking. . (Shana Stevens) Review of Systems Constitutional: COMPLAINS OF: Fatigue, Generalized weakness, Sleep problems Eyes: DENIES: Blurred vision, Diplopia, Eye inflammation, Eye pain, Vision loss , Photosensitivity, Double Vision, Blind spots Ears, nose, mouth, throat: DENIES: Tinnitus, Hearing loss, Vertigo, Nasal discharge, Oral lesions, Throat pain, Hoarseness, Ear Pain, Running Nose, Epistaxis, Sinus Pain, Toothache, Odynophagia Respiratory: COMPLAINS OF: Shortness of breath Cardiovascular: COMPLAINS OF: Dyspnea on Exertion Gastrointestinal: COMPLAINS OF: Abdominal pain, Anorexia, Bloating, Vomiting blood Integumentary: DENIES: Abnormal pigmentation, Nail changes, Pruritus, Rash, Nodules, Tumors, Excessive dryness, Non-healing sores Hematologic/Lymphatics: COMPLAINS OF: Bruising Immunologic/Allergic: DENIES: Eczema, Urticaria Neurologic: DENIES: Abnormal gait, Headache, Localized weakness, Paresthesias, Seizures, Speech Problems, Tremor, Poor Balance, Change in smell or taste Psychiatric: COMPLAINS OF: Anxiety, Depression Other ROS: Pt unresponsive, ROS per mother report. (Shana Stevens) Past Family Social History Coded Allergies: No Known Allergies (Unverified , 12/27/17) Past Medical History ETOH abuse Cirrhosis SMV thrombosis Hypertension . Past Surgical History Right knee surgery . Reported Medications Reported Meds & Active Scripts Active Reported Jantoven (Warfarin) 2.5 Mg Tab 2.5 Mg PO DAILY Spironolactone 50 Mg Tab 50 Mg PO DAILY Amlodipine (Amlodipine Besylate) 5 Mg Tab 5 Mg PO DAILY . Current Medications Medications (Trade) Dose Ordered Sig/Bobo Route Start Time Stop Time Status Last Admin Octreotide Acetate 500 mcg/ Sodium Chloride 500 ml @ 25 mls/hr Q20H IV 12/27/17 22:14 01/06/18 22:55 (NS Flush) 2 ml UNSCH PRN IV FLUSH 12/27/17 22:15 01/07/18 05:36 (NS Flush) 2 ml BID IV FLUSH 12/28/17 09:00 01/07/18 08:41 ([facility] [place] [facility]) 1 [id number] XX 12/27/17 22:15 (Chlorhexidine 2% Cloth) Taper DAILY@04 TOP 12/28/17 04:00 12/24/18 03:59 01/04/18 04:00 (Chlorhexidine 2% Cloth) 3 pack UNSCH PRN TOP 12/27/17 22:15 (Romazicon Inj) 0.2 mg Q1M PRN IV PUSH 12/27/17 23:30 (Ativan) 1 mg Q4H PRN PO 12/27/17 23:30 (Ativan Inj) 1 mg Q4H PRN IV PUSH 12/27/17 23:30 12/31/17 00:31 (Ativan) 2 mg Q2H PRN PO 12/27/17 23:30 (Ativan Inj) 2 mg Q2H PRN IV PUSH 12/27/17 23:30 12/30/17 18:08 (Ativan Inj) 2 mg Q1H PRN IV PUSH 12/27/17 23:30 12/28/17 09:08 (Ativan Inj) 2 mg Q15M PRN IV PUSH 12/27/17 23:30 (Morphine Inj) 2 mg Q3H PRN IV 12/28/17 01:30 12/28/17 08:06 (Compazine Inj) 5 mg Q6H PRN IV PUSH 12/28/17 08:15 12/28/17 09:08 Thiamine HCl 100 mg/Sodium Chloride 101 ml @ 101 mls/hr DAILY IV 12/31/17 09:00 01/10/18 08:59 01/07/18 08:41 (Trandate Inj) 5 mg Q1HR PRN IV PUSH 12/28/17 08:15 (Nitroglycerin 2% Oint) 2 inch Q6HR PRN TOPICAL 12/28/17 08:15 Nicardipine HCl 25 mg/Sodium Chloride 260 ml @ 52 mls/hr TITRATE PRN IV 12/28/17 08:15 (Morphine Inj) 4 mg Q3H PRN IV PUSH 12/28/17 08:15 (Albuterol Neb) 2.5 mg Q2HR NEB PRN NEB 12/28/17 08:15 (Peridex 0.12% Liq) 15 ml BID@08,20 MT 12/28/17 20:00 01/07/18 08:00 Propofol 100 ml @ 4.071 mls/ hr TITRATE PRN IV 12/28/17 14:30 01/07/18 14:28 (Tears Naturale Opth Soln) 1 drop Q8H EACH EYE 12/28/17 15:00 01/07/18 14:28 (TRENtal SR) 400 mg Q8HR PO 12/28/17 22:00 01/07/18 05:34 Acetaminophen 65 ml @ 400 mls/hr Q8HR PRN IV 12/29/17 12:45 01/02/18 18:00 Piperacillin Sod/ Tazobactam Sod 50 ml @ 100 mls/hr Q6H IV 12/31/17 08:00 01/07/18 13:48 (Lactulose Liq) 30 ml QID PO 12/31/17 09:00 01/07/18 13:47 (Brethine Inj) 1 mg UNSCH PRN SQ 12/31/17 07:00 (NS Flush) DAILY IV FLUSH 12/31/17 09:00 01/05/18 08:01 (NS Flush) UNSCH PRN IV FLUSH 12/31/17 09:00 Pantoprazole Sodium 80 mg/ Sodium Chloride 100 ml @ 10 mls/hr Q10H IV 12/31/17 10:00 01/07/18 09:15 (Colace Liq) 100 mg Q12HR PO 01/01/18 09:00 01/06/18 20:22 (Senna Liq) 8.8 mg BID PO 01/01/18 09:00 01/06/18 20:22 (Miralax) 17 gm BID PO 01/01/18 09:00 01/06/18 20:22 (D50w (Vial) Inj) 50 ml UNSCH PRN IV PUSH 01/01/18 07:45 (Glucagon Inj) 1 mg UNSCH PRN OTHER 01/01/18 07:45 (NovoLIN R SUPPLEMENTAL SCALE) 1 Q4HR SQ 01/01/18 08:00 01/05/18 12:00 (Reglan Inj) 5 mg Q8HR IV PUSH 01/01/18 14:00 01/07/18 13:47 Sodium Chloride 5.5 meq/Sodium Acetate 29.5 meq/ Potassium Chloride 20 meq/ Magnesium Chloride 5 meq/ Calcium Chloride 4.5 meq/ Multivitamins 5 ml/Folic Acid 0.5 mg/Insulin Human Regular 10 units/ Amino Acids/ Dextrose 1,029.7969 ml @ 50 mls/hr [id number] IV-CENTRAL 01/03/18 20:00 01/07/18 09:02 Albumin Human 100 ml @ 60 mls/hr Q6HR IV 01/03/18 18:00 01/07/18 13:47 (Lasix Inj) 60 mg Q6HR IV PUSH 01/06/18 12:00 01/07/18 05:35 Potassium Chloride 100 ml @ 25 mls/hr BOLUS ONCE IV 01/07/18 14:00 01/07/18 17:59 01/07/18 15:30 Family History Father of complications related to sepsis. Mother and sister, alive and well. . Substance Use Tobacco: Alcohol: Prescription med abuse: Illicits: (Shana Stevens) Psychosocial History Mr. Henderson is originally from [place]. He moved to [place] 5 years ago to live with his mother. once, patient's mother indicated patient and , Yuliya, are still legally though he served her with divorce papers. refused to sign them. He does not have any children. Father is . 1 living sister. Mr. Henderson graduated from the [employer] with the Bachelors of Political Science. He was accepted into law school but did not pursue such studies. 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 Mother reports patient has struggled with some depression. Mr. Henderson received medical care from the [facility]. . Spiritual/Cultural Factors Baptized [employer]. Welcomes Pension Manager support. Chaplains notified. . (Ashley Willams MSW, DIRECTOR OF OUTREACH) Documented care wishes: No written advanced directives. . Today's verbally stated goals: Patient is not capacitated to make his own health care decisions, uncertain if he will regain capacity. . Family/friends goals: Will further clarify at family meeting 01/08/18. . Ethical and Legal Issues Patient is not capacitated to make his own health care decisions, uncertain if he will regain capacity. Mr. Cedillo has never completed written advanced directives. According to [place] Statues, medical proxy decision maker would fall to patient's spouse, no contact information. Google search conducted, attempted to contact possible match. Numbers just ring or are not working numbers. [employer] resulted, Yuliya located and requests joint family meeting and medical update on 01/08/18 at 11am. . (Shana Stevens) Living Will: Never completed Health Care Surrogate: Never completed Durable Power of Stock Preparer: Never completed Health Care Surrogate(s): Mr. Cedillo has never completed written advanced directives. According to [place] Statues, medical proxy decision maker would fall to patient's spouse, no contact information. Google search conducted, attempted to contact possible match. Numbers just ring or are not working numbers. [employer] resulted, leonor Dwyer located and requests joint family meeting and medical update on 01/08/18 at 11am. . . (Ashley Willams [employer] BLOCKS PRESS OPERATOR, DIRECTOR OF OUTREACH) Physical Exam Vital Signs Date Time Temp Pulse Resp B/P (MAP) Pulse Ox O2 Delivery O2 Flow Rate FiO2 01/07/18 15:51 100 40 01/07/18 14:00 84 01/07/18 12:12 98 40 01/07/18 12:00 97.7 83 20 86/48 (61) 100 01/07/18 12:00 40 01/07/18 12:00 84 01/07/18 10:00 80 01/07/18 08:00 40 01/07/18 08:00 97.9 90 20 128/66 (86) 98 01/07/18 08:00 87 01/07/18 07:30 99 40 01/07/18 06:00 86 01/07/18 04:30 96 40 01/07/18 04:00 40 01/07/18 04:00 85 01/07/18 04:00 98.3 81 18 135/67 (89) 93 01/07/18 02:00 85 01/07/18 01:06 92 40 01/07/18 00:00 99.0 81 18 142/60 (87) 94 01/07/18 00:00 40 01/07/18 00:00 81 01/06/18 22:15 94 40 01/06/18 22:00 80 01/06/18 20:00 80 01/06/18 20:00 40 01/06/18 20:00 98.3 80 18 127/68 (87) 100 01/06/18 19:24 99 40 01/06/18 18:00 76 01/07/18 01/08/18 19:00 07:00 Intake Total 651 ml Balance 651 ml IV Total 651 ml Exam CONSTITUTIONAL/GENERAL: This is a critically ill, overweight male, in no apparent distress. TUBES/LINES/DRAINS: ETT, Dobbhoff right nare, left jugular central line, PIV x 2 , abdominal catheter, bilateral soft wrist restraints, Key, rectal tube, SCDs. SKIN: + jaundice. Ecchymoses on upper extremities. Skin temperature appropriate. Not diaphoretic. HEAD: Atraumatic. Normocephalic. EYES: Pupils equal and round and reactive. Extraocular motions intact. No scleral icterus. No injection or drainage. Fundi not examined. ENT: Unable to assess hearing, Nose without bleeding or purulent drainage. Throat difficult to visualize due to tubes. NECK: Trachea midline. CARDIOVASCULAR: Regular rate and rhythm without murmurs. RESPIRATORY/CHEST: On mech vent. Breath sounds equal and diminished bilaterally. GASTROINTESTINAL: Abdomen protuberant, distended, Peritoneal drain in place, minimal dark bloody drainage. GENITOURINARY: Without palpable bladder distension. Key catheter in place. MUSCULOSKELETAL: Lower extremities with pitting edema. Upper extremities with pitting, weeping edema. LYMPHATICS: No palpable cervical or supraclavicular adenopathy. NEUROLOGICAL: Does not open eyes to voice or exam, localizes to pain. PSYCHIATRIC: sedated. . (Shana Stevens) Diagnostic Tests Laboratory Laboratory Tests Test 01/05/18 04:41 01/05/18 05:50 01/05/18 12:15 01/06/18 03:54 Blood Gas Puncture Site RT RADIAL Blood Gas Patient Temperature 98.6 Blood Gas HCO3 17 mmol/L (22-26) Blood Gas Base Excess -7.4 mmol/L (-2-2) Blood Gas Oxygen Saturation 92 % (90-100) Arterial Blood pH 7.33 (7.380-7.420) Arterial Blood Partial Pressure CO2 34 mmHg (38-42) Arterial Blood Partial Pressure O2 77 mmHg (61-120) Arterial Blood Oxygen Content 9.7 Vol % (12.0-20.0) Arterial Blood Carboxyhemoglobin 2.1 % (0-4) Arterial Blood Methemoglobin 1.3 % (0-2) Blood Gas Hemoglobin 7.4 G/DL (12.0-16.0) Oxygen Delivery Device VENTILATOR Blood Gas Ventilator Setting SEE COMMENTS Blood Gas Inspired Oxygen 30 % Hemoglobin 6.9 GM/DL (13.0-17.0) 7.6 GM/DL (13.0-17.0) Hematocrit 21.6 % (39.0-51.0) 22.7 % (39.0-51.0) Blood Urea Nitrogen 55 MG/DL (7-18) 52 MG/DL (7-18) Creatinine 3.81 MG/DL (0.60-1.30) 3.29 MG/DL (0.60-1.30) Random Glucose 136 MG/DL (74-106) 120 MG/DL (74-106) Calcium Level 8.3 MG/DL (8.5-10.1) 8.3 MG/DL (8.5-10.1) Sodium Level 137 MEQ/L (136-145) 139 MEQ/L (136-145) Potassium Level 4.1 MEQ/L (3.5-5.1) 3.4 MEQ/L (3.5-5.1) Chloride Level 103 MEQ/L (98-107) 103 MEQ/L (98-107) Carbon Dioxide Level 19.4 MEQ/L (21.0-32.0) 24.7 MEQ/L (21.0-32.0) Anion Gap 15 MEQ/L (5-15) 11 MEQ/L (5-15) Estimat Glomerular Filtration Rate 17 ML/MIN (>89) 20 ML/MIN (>89) Peritoneal Fluid WBC 245 /MM3 (0-10) Peritoneal Fluid RBC 202 /MM3 (0-0) Peritoneal Fluid Neutrophils 10 % Peritoneal Fluid Lymphocytes 85 % Peritoneal Fluid Monocytes 4 % Peritoneal Fluid Eosinophils 1 % Peritoneal Fluid Total Protein 1.2 GM/DL Peritoneal Fluid Albumin 0.7 G/DL Peritoneal Fluid LDH 62 U/L Peritoneal Fluid Glucose 147 MG/DL White Blood Count 8.3 TH/MM3 (4.0-11.0) Red Blood Count 2.64 MIL/MM3 (4.50-5.90) Mean Corpuscular Volume 86.1 FL (80.0-100.0) Mean Corpuscular Hemoglobin 28.8 PG (27.0-34.0) Mean Corpuscular Hemoglobin Concent 33.4 % (32.0-36.0) Red Cell Distribution Width 25.3 % (11.6-17.2) Platelet Count 145 TH/MM3 (150-450) Mean Platelet Volume 7.5 FL (7.0-11.0) Neutrophils (%) (Auto) 80.1 % (16.0-70.0) Lymphocytes (%) (Auto) 6.2 % (9.0-44.0) Monocytes (%) (Auto) 8.6 % (0.0-8.0) Eosinophils (%) (Auto) 2.8 % (0.0-4.0) Basophils (%) (Auto) 2.3 % (0.0-2.0) Neutrophils # (Auto) 6.7 TH/MM3 (1.8-7.7) Lymphocytes # (Auto) 0.5 TH/MM3 (1.0-4.8) Monocytes # (Auto) 0.7 TH/MM3 (0-0.9) Eosinophils # (Auto) 0.2 TH/MM3 (0-0.4) Basophils # (Auto) 0.2 TH/MM3 (0-0.2) CBC Comment AUTO DIFF Differential Total Cells Counted 100 Neutrophils % (Manual) 53 % (16-70) Band Neutrophils % 23 % (0-6) Lymphocytes % 10 % (9-44) Monocytes % 7 % (0-8) Eosinophils % 7 % (0-4) Neutrophils # (Manual) 6.3 TH/MM3 (1.8-7.7) Differential Comment FINAL DIFF MANUAL Platelet Estimate LOW (NORMAL) Platelet Morphology Comment NORMAL (NORMAL) Target Cells 1+ (NORMAL) Total Protein 6.7 GM/DL (6.4-8.2) Albumin 3.8 GM/DL (3.4-5.0) Phosphorus Level 3.6 MG/DL (2.5-4.9) Alkaline Phosphatase 56 U/L (45-117) Aspartate Amino Transf (AST/SGOT) 156 U/L (15-37) Alanine Aminotransferase (ALT/SGPT) 47 U/L (12-78) Total Bilirubin 14.0 MG/DL (0.2-1.0) Test 01/06/18 08:54 01/07/18 05:00 Blood Gas Puncture Site RT RADIAL Blood Gas Patient Temperature 98.6 Blood Gas HCO3 23 mmol/L (22-26) Blood Gas Base Excess -1.5 mmol/L (-2-2) Blood Gas Oxygen Saturation 94 % (90-100) Arterial Blood pH 7.40 (7.380-7.420) Arterial Blood Partial Pressure CO2 38 mmHg (38-42) Arterial Blood Partial Pressure O2 87 mmHg (61-120) Arterial Blood Oxygen Content 9.9 Vol % (12.0-20.0) Arterial Blood Carboxyhemoglobin 2.2 % (0-4) Arterial Blood Methemoglobin 1.1 % (0-2) Blood Gas Hemoglobin 7.4 G/DL (12.0-16.0) Oxygen Delivery Device VENTILATOR Blood Gas Ventilator Setting APRV 4.5/0.8/26/10 Blood Gas Inspired Oxygen 30 % White Blood Count 8.4 TH/MM3 (4.0-11.0) Red Blood Count 2.62 MIL/MM3 (4.50-5.90) Hemoglobin 7.7 GM/DL (13.0-17.0) Hematocrit 22.8 % (39.0-51.0) Mean Corpuscular Volume 87.0 FL (80.0-100.0) Mean Corpuscular Hemoglobin 29.2 PG (27.0-34.0) Mean Corpuscular Hemoglobin Concent 33.6 % (32.0-36.0) Red Cell Distribution Width 26.5 % (11.6-17.2) Platelet Count 115 TH/MM3 (150-450) Mean Platelet Volume 7.3 FL (7.0-11.0) Neutrophils (%) (Auto) 78.4 % (16.0-70.0) Lymphocytes (%) (Auto) 6.6 % (9.0-44.0) Monocytes (%) (Auto) 11.3 % (0.0-8.0) Eosinophils (%) (Auto) 2.1 % (0.0-4.0) Basophils (%) (Auto) 1.6 % (0.0-2.0) Neutrophils # (Auto) 6.6 TH/MM3 (1.8-7.7) Lymphocytes # (Auto) 0.6 TH/MM3 (1.0-4.8) Monocytes # (Auto) 0.9 TH/MM3 (0-0.9) Eosinophils # (Auto) 0.2 TH/MM3 (0-0.4) Basophils # (Auto) 0.1 TH/MM3 (0-0.2) CBC Comment AUTO DIFF Differential Total Cells Counted 100 Neutrophils % (Manual) 64 % (16-70) Band Neutrophils % 20 % (0-6) Lymphocytes % 6 % (9-44) Monocytes % 7 % (0-8) Eosinophils % 3 % (0-4) Neutrophils # (Manual) 7.1 TH/MM3 (1.8-7.7) Differential Comment FINAL DIFF MANUAL Platelet Estimate LOW (NORMAL) Platelet Morphology Comment NORMAL (NORMAL) Target Cells 1+ (NORMAL) Blood Urea Nitrogen 47 MG/DL (7-18) Creatinine 2.67 MG/DL (0.60-1.30) Random Glucose 111 MG/DL (74-106) Total Protein 6.5 GM/DL (6.4-8.2) Albumin 3.6 GM/DL (3.4-5.0) Calcium Level 8.4 MG/DL (8.5-10.1) Magnesium Level 2.3 MG/DL (1.5-2.5) Alkaline Phosphatase 52 U/L (45-117) Aspartate Amino Transf (AST/SGOT) 162 U/L (15-37) Alanine Aminotransferase (ALT/SGPT) 50 U/L (12-78) Total Bilirubin 14.1 MG/DL (0.2-1.0) Sodium Level 143 MEQ/L (136-145) Potassium Level 3.0 MEQ/L (3.5-5.1) Chloride Level 103 MEQ/L (98-107) Carbon Dioxide Level 26.6 MEQ/L (21.0-32.0) Anion Gap 13 MEQ/L (5-15) Estimat Glomerular Filtration Rate 25 ML/MIN (>89) (Shana Stevens) Result Diagram: 01/07/18 0500 01/07/18 0500 Microbiology Microbiology Date/Time Source Procedure Growth Status 01/05/18 12:15 Fluid Peritoneal Fluid Gram Stain - Final Resulted 01/05/18 12:15 Body Fluid Culture - Preliminary Gram Negative Silver Resulted 01/05/18 09:50 Sputum Endotracheal Gram Stain - Final Complete 01/05/18 09:50 Sputum Endotracheal Sputum Culture - Final RARE GROWTH NORMAL RESPIRATORY AISHWARYA Complete Imaging Last Impressions Chest X-Ray 01/07/18 0600 Signed Impressions: CONCLUSION: Hazy left lung base opacity not significantly changed and mild case of pulmonar y venous congestion may be present as well. Abdomen X-Ray 01/03/18 0600 Signed Impressions: CONCLUSION: No dilated bowel. Liver Ultrasound 12/31/17 0000 Signed Impressions: CONCLUSION: 1. Diffuse increased echogenicity throughout the liver suggestive of fatty inf iltration and/or hepatocellular disease. 2. Hepatomegaly. 3. Thickened gallbladder wall at 12 mm. No definite gallstones are seen. As ca n be seen with chronic gallbladder disease. Aorta CTA 12/28/17 0000 Signed Impressions: Service Date/Time: Thursday, December 28, 2017 21:00 - CONCLUSION: 1. Normal thoracic and abdominal aorta. No dissection/aneurysm seen. 2. Bibasilar consolidation and patchy densities in the upper lobes. 3. Hepatic steatosis with possible cirrhosis and moderate abdominal ascites. 4. Cholelithiasis. Aldair Francis MD Abdomen/Pelvis CT 12/[id number]/[id number] Signed Impressions: Service Date/Time: Wednesday, December 27, 2017 21:00 - CONCLUSION: 1. Diffusely abnormal liver likely secondary to hepatic steatosis and possible changes of cirrhosis. 2. Splenomegaly. This could be secondary to portal hypertension. 3. Moderate ascites. 4. Calcified gallstone. Stefan Grier MD Gall Bladder Ultrasound 12/27/17 0000 Signed Impressions: Service Date/Time: Wednesday, December 27, 2017 21:16 - CONCLUSION: 1. Diffusely abnormal liver secondary to cirrhosis and hepatic steatosis. 2. Gallbladder wall thickening. This is nonspecific. This can be seen with hepatic disease. It also can be seen with cholecystitis in the correct clinical situation. Gallstones were not demonstrated on the ultrasound examination but are clearly present on the CT examination. Stefan Grier MD . (Shana Stevens) Patient/Family Conference Present at Family Conference: Met with motherDebo. Also present Ashley Willams LCSW. . Family Conference Time (mins): 60 Family Conference Location: Bedside, Consult Room Issues Discussed: * Palliative care role, purpose, approach * Additional medical, psychosocial, and spiritual history * Patients general health, functional status, and cognitive changes in the months leading up to the current hospitalization * Patient/family understanding of the current medical problems * Patient/family understanding of prognosis * Palliative care contact information provided As per summary above. We were unable to address goals of care as we were attempting to clarify legal HCP. Following meeting with mother, I called to speak with trial paralegal and advised we need to make an attempt to find his and offer her to serve as health care proxy, if unable to locate or if , Yuliya refuses to serve as HCP as per [place] statutes mother would be health care proxy. (Shana Stevens) Issues Discussed: Palliative care met with Debo velasquez in family conference room. DENA Davis and Ashley Willams LCSW present. Mother indicates patient is still legally . Patient served Yuliya divorce papers and she refused to sign. Informed of [place] Statutes, in absence of written advanced directives medical proxy decision making would fall to patient's . Mother became upset and wanted to resend statement about patient being . Gently readdressed [place] Statutes and hierarchy of proxy decision makers. Informed mother palliative care would speak with trial paralegal and pursue searches to obtain contact information for . Mother verbalizes understanding and again expressed her dissatisfaction with above. [employer] results produced contact information for Yuliya. Spoke with her via telephone. She confirms her and patient are legally . Indicates she has not spoken with him in 5 years as he "left her". Indicates she does not have knowledge of his current medical condition. Requests a medical update on at 11am via telephone. Indicates she would like to include patient's mother in this meeting. Requested her number be provided to mother so they can speak. indicates she would like to speak with mother to support her in decisions and "make sure she is making decisions right by him". With further conversation indicates her and the patient have had conversations about end of life and indicates "he is not a life support kind of ayanna". indicates she would like to speak with the medical team and his mother prior to making any sole decisions. 507pm: Follow-up telephone call to mother. Gently informed her conversation with trial paralegal/search for and subsequent contact. Mother immediately became audibly upset, verbalized her request to resent statement of patient being legally and her frustration with not being notified prior to contact patient's . Then stated "I'm going to hang up on you now". 527pm: Contacted mother again to gently inform her of above conversation with . She states she will not contact the under any circumstances and declines being a part of any conversation that takes place with . Verbalizes her frustration and indicates if comes from [place] she "DOES NOT want to be in a room with her." Politely indicates she does not wish to further discuss and would like to end the call. All telephone conversations witnessed by: DENA Davis; DENA Gutiérrez, DENA Calderon, and DENA Sung. . (Ashley Willams MSW, DIRECTOR OF OUTREACH) Assessment and Plan Disease Oriented Problem List: (1) Probable sepsis (2) Abnormal INR (3) Alcoholic cirrhosis (4) Hyponatremia (5) Ascites (6) Acute renal failure (7) Upper GI bleed (8) Coagulopathy (9) Anemia requiring transfusions (10) Transaminitis (11) Hyperbilirubinemia Symptom Scale: (1) Pain 0-10 Scale: Unable to quantify (2) Dyspnea 0-10 Scale: Unable to quantify Pertinent Non-Medical Issues Psychosocial:Lives with his mother, Debo. Legally to estranged , Yuliya (lives in [place]). No children. Spiritual: [employer]. Pension Manager requested. Legal:Patient is not capacitated to make his own health care decisions, uncertain if he will regain capacity. Mr. Cedillo has never completed written advanced directives. According to [place] Statues, medical proxy decision maker would fall to patient's spouse, no contact information. Google search conducted , attempted to contact possible match. Numbers just ring or are not working numbers. [employer] resulted, Yuliya located and requests joint family meeting and medical update on 01/08/18 at 11am. Ethical issues impacting care: No known concerns at this time. . Prognosis Mr. 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 Overall prognosis is poor. . Code Status: No Code Plan * Patient is not capacitated to make his own health care decisions, uncertain if he will regain capacity. Mr. Cedillo has never completed written advanced directives. According to [place] Statues, medical proxy decision maker would fall to patient's spouse, no contact information. Google search conducted. [employer] resulted, Yuliya located and requests joint family meeting and medical update on 01/08/18 at 11am. * NO CODE * Further clarification of medical treatment goals pending determination of legal health care proxy and pending family meeting tentatively arranged 01/08/18 at 11am. DENA Gutiérrez and Ashley Willams LCSW to follow. Mother DOES NOT want to participate in telephone conversation with Yuliya. * Discussed with trial paralegal, nursing staff and Glo Morgan who will be following patient the remainder of the week. * SYMPTOMS; pain: sedated on mech vent. No obvious signs of pain. Patient unresponsive. Dyspnea: on mech vent, sedated. No new medication recommendations at this time. * Palliative care number provided. * Palliative care will continue to follow throughout hospitalization to assist with clarification of medical treatment goals and symptom management as needed. . (Shana Stevens) Important Contacts Yuliya Henderson, : [phone] (cell) Debo Henderson, mother: [phone] (cell), (home) . (Ashley Willams MSW, DIRECTOR OF OUTREACH) Thank you for the opportunity to participate in the care of Mr. Henderson. (Shana Stevens) Attestation To help prompt me to consider important information that might be impacting today's encounter and assessment, information from prior notes written by myself or my colleagues may have been "brought forward" into today's note. My signature on this note, however, is an attestation that I personally performed the exam, history, and/or decision-making noted today, and, unless otherwise indicated, the interactions with patient, family, and staff as well as the review of records all occurred today. I also attest that the listed assessment and stated plan reflect my best clinical judgment today based on the combination of historical information, prior notes, and today's exam/ interactions. When time spent is documented, it refers only to time spent today by the signer, or if indicated, combined time spent today by collaborating physician/nurse practitioner. (Shana Stevens) Shana Stevens January 07, 2018 16:07 Ashley Willams, DIRECTOR OF OUTREACH January 07, 2018 16:26
[2018-01-07] MEDS: OCTREOTIDE INJ 500 MCG in SODIUM CHLORID 0.9% 500 ML INJ 499.5 ML IV SCH (20:28)
[2018-01-08] VITALS (27 sets, daily range): BP systolic 103–119; BP diastolic 50–59; PULSE 84–103; RESP 18–23; TEMP 97.8–98.9; O2SAT 97–100
[2018-01-08] MEDS: PROPOFOL 1000 MG/100 ML INJ 100 ML IV PRN ×7 (01:16→22:36)
[2018-01-08] MEDS: PIPERACIL-TAZO 2.25 GM PREMIX 50 ML IV SCH ×4 (01:16→20:46)
[2018-01-08] MEDS: INSULIN NovoLIN REGULAR SUPPLEMENTAL SCALE SQ SCH ×5 (04:00→20:00)
[2018-01-08] MEDS: CHLORHEXIDINE GLUCONATE 2 % 1 PACK (2 CLOTHS) TOP SCH (04:00)
[2018-01-08 04:17] LABS: AUTOMATED NEUTROPHIL # 5.6 TH/MM3 (1.8-7.7); BASOPHIL # 0.1 TH/MM3 (0-0.2); EOSINOPHIL # 0.2 TH/MM3 (0-0.4); EOSINOPHIL % 2.3 % (0.0-4.0); LYMPH % 19.8 % (9.0-44.0); LYMPHOCYTE # 1.6 TH/MM3 (1.0-4.8); MEAN CELL VOLUME 89.2 FL (80.0-100.0); MEAN CORPUSCULAR HGB CONC 33.6 % (32.0-36.0); MEAN PLATELET VOLUME 7.6 FL (7.0-11.0); MONO % 6.6 % (0.0-8.0); MONOCYTE # 0.5 TH/MM3 (0-0.9); NEUT % 70.3 % (16.0-70.0); PLATELET COUNT 86 TH/MM3 (150-450); RED BLOOD COUNT 1.49 MIL/MM3 (4.50-5.90); RED CELL DISTRIBUTION WIDTH 26.4 % (11.6-17.2)
[2018-01-08 04:20] LABS: HEMATOCRIT 13.3 % (39.0-51.0); HEMOGLOBIN 4.5 GM/DL (13.0-17.0)
[2018-01-08 04:20] LABS: ALKALINE PHOSPHATASE 36 U/L (45-117); ALT (GPT) 54 U/L (12-78); AST (GOT) 200 U/L (15-37); BICARBONATE 28.5 MEQ/L (21.0-32.0); BLOOD UREA NITROGEN 55 MG/DL (7-18); CALCIUM 8.2 MG/DL (8.5-10.1); CHLORIDE 108 MEQ/L (98-107); CREATININE 2.57 MG/DL (0.60-1.30); GLOMERULAR FILTRATION RATE 27 ML/MIN (>89); GLUCOSE,RANDOM 114 MG/DL (74-106); MAGNESIUM 2.3 MG/DL (1.5-2.5); SODIUM (NA) 146 MEQ/L (136-145)
[2018-01-08 04:50] LABS: BANDS 15 % (0-6); BASOPHILS 2 % (0-2); CORRECTED NUCLEATED RBC 1 /100 WBC (0-0); LYMPHOCYTES 10 % (9-44); METAMYELOCYTES 1 % (0-1); MONOCYTES 6 % (0-8); NEUTROPHIL # MANUAL DIFF 6.1 TH/MM3 (1.8-7.7); NUCLEATED RED BLOOD CELL 1 (0-0); POLYS (SEG NEUTROPHILS) 60 % (16-70)
[2018-01-08] MEDS: SODIUM CHLORIDE 23.4% INJ 5.5 MEQ, SODIUM ACETATE INJ 29.5 MEQ, POTASSIUM CHLORIDE INJ ... IV-CENTRAL SCH ×9 (04:53)
[2018-01-08] MEDS: FUROSEMIDE 40 MG/4 ML VIAL IV PUSH SCH (04:53)
[2018-01-08] MEDS: METOCLOPRAMIDE HCL 10 MG/2 ML VIAL IV PUSH SCH ×3 (04:53→20:47)
[2018-01-08] MEDS: PENTOXIFYLLINE 400 MG CONTROLLED RELEASE TAB PO SCH ×3 (04:53→20:46)
[2018-01-08] MEDS: ALBUMIN 25% INJ 100 ML IV SCH (04:54)
[2018-01-08 04:58] LABS: POLYCHROMASIA 2.4 % (0.0-1.9)
[2018-01-08] MEDS: ARTIFICIAL TEARS OPTH SOLN 15 ML BTL EACH EYE SCH ×3 (06:13→22:17)
[2018-01-08] MEDS: PANTOPRAZOLE INJ 80 MG in SODIUM CHLORIDE 0.9% INJ 100 ML IV SCH ×2 (07:19→17:25)
[2018-01-08] MEDS: CHLORHEXIDINE 0.12% (ORAL KIT) 15 ML CUP MT SCH ×2 (07:19→20:46)
[2018-01-08] MEDS: THIAMINE INJ 100 MG in SODIUM CHLORIDE 0.9% INJ 100 ML IV SCH (07:57)
[2018-01-08] MEDS: SODIUM CHLORIDE 0.9% FLUSH 10 ML FLUSH IV FLUSH SCH ×3 (07:57→20:46)
[2018-01-08] MEDS: LACTULOSE SYRUP 20 GM/30 ML CUP PO SCH ×4 (07:58→20:46)
[2018-01-08] MEDS: DOCUSATE SODIUM 100 MG/10 ML UDC PO SCH ×2 (07:58→20:46)
[2018-01-08] MEDS: POLYETHYLENE GLYCOL 17 GM PKG PO SCH ×2 (07:58→20:47)
[2018-01-08] MEDS: SENNOSIDES SYRUP 8.8 MG/5 ML CUP PO SCH ×2 (07:58→20:47)
[2018-01-08] MEDS ORDERED: ROCURONIUM INJ 50 MG/5 ML VIAL ONE (08:19)
[2018-01-08] MEDS ORDERED: TERBUTALINE INJ 1 MG/ML AMP SQ PRN (08:30)
[2018-01-08] MEDS ORDERED: ETOMIDATE 40 MG/20 ML VIAL IV PUSH ONE (08:30)
[2018-01-08] MEDS ORDERED: ROCURONIUM INJ 50 MG/5 ML VIAL IV ONE (08:30)
[2018-01-08] MEDS ORDERED: NOREPINEPHRINE INJ 4 MG in SODIUM CHLOR 0.9% 250 ML INJ 246 ML IV PRN (08:30)
--- NOTE | 2018-01-08 09:18 | RADRPT ---
EXAM DATE: 01/08/2018 9:00 AM EDT AGE/SEX: 52 years / Male INDICATIONS: ET Tube adjustment. CLINICAL DATA: This is the patient's subsequent encounter. Patient reports that signs and symptoms h ave been present for 2 weeks and indicates a pain score of Nonresponsive. MEDICAL/SURGICAL HISTORY: Hypertension. Gastroesophageal reflux disease. Cirrhosis. Non-respo nsive. COMPARISON: [facility] [place]. . FINDINGS: The exam demonstrates a left-sided central venous catheter tip overlies the junction of the innominat e vein and the SVC. The ET tube is in satisfactory position. There is a feeding tube. The distal tip is not seen. The heart appears mildly enlarged. The lungs are clear. The area of infiltrate at the left lung base is no longer identified. CONCLUSION: 1. Support equipment in satisfactory position. 2. Area of infiltrate at the left lung base no longer identified. Electronically signed by: Sathya Stock MD 01/08/2018 9:16 AM EDT
--- NOTE | 2018-01-08 09:36 | HHI.CCPN ---
Subjective Remarks/Hospital Course Patient is a 52-year-old male with history of alcohol dependence, on chronic Coumadin for "abdominal vein thrombosis", history of hypertension who presented to the emergency department with complaints of increasing jaundice, increasing abdominal girth and vomiting jade blood multiple times over the last 2 days. Patient admits to being a heavy drinker he drinks about 1.75 L bottle hard liquor every 2 days. ER workup showed patient had a hemoglobin of 8.1, INR was 15.7. PTT 156.1, white count of 13.6 with 10% bands. Also sodium was noted to be 119, AST 439 ALT 115 and bilirubin of 7.6. A stat CT abdomen pelvis showed moderate ascites, probable cirrhosis and hepatic steatosis, splenomegaly, and gallstones. Patient had been ordered to receive 2 units of PRBC, and total 4 units of FFP. INR, Hb will be rechecked after this and additional FFP will be given accordingly. 10 mg vitamin K also ordered. Unfortunately hospital is out of [facility]. I evaluated the patient in the emergency department. He initially had an alcohol level of 135. At the time of my exam he is in moderate distress appears to be slightly tremulous. I have initiated CIWA protocol. I will also start its Rocephin for SBP prophylaxis. Patient had been started on IV Protonix infusion and octreotide which will be continued. Patient clinically also appears to have at least moderate ascites but I am unable to perform paracentesis due to elevated INR. 12/28: Currently resting in bed complaining of abdominal pain. Short of breath and tachypnea. Complaining of nausea currently. Remains on nasal cannula. Patient does not desire his mother's to have knowledge about his alcohol use. 12/29: Afebrile. Remains intubated post EGD yesterday due to worsening hypoxia. Currently on PSV trial 26/05 at 40%. Remains on dexmedetomidine drip and attempt to wean with alcohol use and likely progression to DTs. Banding of varices noted. Pentoxifylline 400 mg every 8 hours initiated with appropriate 12/30: Awake on dexmedetomidine drip at 1 mcg/kg/min. Following commands and attempting to write. Nods his head when states he feels the effects of alcohol withdrawals. Afebrile. Continues to leak from prior site of paracentesis. 12/31: Diminished urine output noted overnight. Increasing FiO2 requirement. Bladder pressures measured currently elevated around 25. Will place tube to suction and notify GI. Nephrology consult placed. Will need central line. 01/01: T-max 100. Currently 99. Meld score 34. Discriminant function is 34. Tamera alcohol scale score 7. Arousable the ventilator. FiO2 increased to 40- 60% overnight. 350 cc from NG tube overnight. 01/02: T-max 99.8. No bowel movement overnight. Abdomen remains distended. More ascites output from left lower quadrant previous paracentesis site. Arousable on the ventilator and follows commands on sedation vacation. Remains on PEEP of 12. FiO2 60%. 01/03: Patient remains intubated sedated very critical. FiO2 had to be increased to 70%. I have increase PEEP from 12-14. Chest x-ray remains unchanged. T-max 100.5. Urine output 1.3 L. BUN 42 creatinine 3.5 hemoglobin 7.4. Bedside ultrasound shows at least moderate ascites. Plan for thoracentesis for fluid removal and also will help with vent dynamic. 01/04: Persistent problems with oxygenation related to diffuse basilar atelectasis. Patient converted to airway pressure release ventilation this morning. Caloric intake probably on the high side in view of propofol infusion. Will reduce TPN to 60 cc/h. Enteral feedings at trickle rate. 01/05: Patient placed on APRV mode 01/04 with T-hi 5 sec Pres hi 30, with release volumes around 800 cc. Good oxygen saturation 30% FiO2. X-ray shows improvement in bilateral consolidation persistent left lower lobe infiltrate. Urine output 1.5 L also 1.5 L out from left paracentesis site. Transfuse 1 U PRBC 01/06: Remains critically ill but making some progress. Reduce PHigh to 26, T high to 4.5, if tolerated well, attempt to switch to PC/AC with PEEP 18-20 and rita iTime. Urine output adequate 2.3 L in 24 hours. Paracentesis site draining approximately 1.4 L despite paracentesis and removal of 3.5 L yesterday. Increase Lasix to 60 mg IV q6hr, Creat improved to 3.29 01/07: Oxygenation modestly improved with very aggressive mean airway pressures , continue PEEP 1820. Abdominal girth and ascites have conspired to reduce functional residual capacity. Now a permanent peritoneal drain is in place and we will attempt to make some progress with gas exchange. Between the intractable ascites, morbid obesity, and respiratory failure it will be very difficult to remove this patient from positive pressure ventilation. Subjective 01/08: ET tube has migrated above the vocal cords. Directly visualized with glide scope after receiving 40 mg etomidate. Cuff was deflated several times and advanced with adequate tidal volumes post advancement. Follow-up chest x- ray revealed adequate placement of ET tube. Remains on furosemide will change to drip today. Objective Vital Signs Date Time Temp Pulse Resp B/P (MAP) Pulse Ox O2 Delivery O2 Flow Rate FiO2 01/08/18 08:39 97 100 01/08/18 08:00 98 01/08/18 08:00 98.2 23 116/50 (72) 01/05/18 07:41 Ventilator Intake and Output 01/08/18 01/08/18 01/09/18 08:00 16:00 00:00 Intake Total 2040.8 ml Output Total 3250 ml Balance -1209.2 ml Result Diagram: 01/08/18 0410 01/08/18 0315 Other Results Microbiology Date/Time Source Procedure Growth Status 01/02/18 08:38 Blood Peripheral Aerobic Blood Culture - Final NO GROWTH IN 5 DAYS Complete 01/02/18 08:38 Blood Peripheral Anaerobic Blood Culture - Final NO GROWTH IN 5 DAYS Complete 01/05/18 12:15 Fluid Peritoneal Fluid Gram Stain - Final Resulted 01/05/18 12:15 Body Fluid Culture - Preliminary Gram Negative Silver Resulted 01/05/18 09:50 Sputum Endotracheal Gram Stain - Final Complete 01/05/18 09:50 Sputum Endotracheal Sputum Culture - Final RARE GROWTH NORMAL RESPIRATORY AISHWARYA Complete 12/30/17 08:45 Urine Catheterized Urine Urine Culture - Final NO GROWTH IN 48 HOURS. Complete Imaging Last Impressions Chest X-Ray 01/08/18 0000 Signed Impressions: CONCLUSION: 1. Support equipment in satisfactory position. 2. Area of infiltrate at the left lung base no longer identified. Abdomen X-Ray 01/03/18 0600 Signed Impressions: CONCLUSION: No dilated bowel. Liver Ultrasound 12/31/17 0000 Signed Impressions: CONCLUSION: 1. Diffuse increased echogenicity throughout the liver suggestive of fatty inf iltration and/or hepatocellular disease. 2. Hepatomegaly. 3. Thickened gallbladder wall at 12 mm. No definite gallstones are seen. As ca n be seen with chronic gallbladder disease. Aorta CTA 12/28/17 0000 Signed Impressions: Service Date/Time: Thursday, December 28, 2017 21:00 - CONCLUSION: 1. Normal thoracic and abdominal aorta. No dissection/aneurysm seen. 2. Bibasilar consolidation and patchy densities in the upper lobes. 3. Hepatic steatosis with possible cirrhosis and moderate abdominal ascites. 4. Cholelithiasis. Aldair Francis MD Abdomen/Pelvis CT 12/27/[id number] Signed Impressions: Service Date/Time: Wednesday, December 27, 2017 21:00 - CONCLUSION: 1. Diffusely abnormal liver likely secondary to hepatic steatosis and possible changes of cirrhosis. 2. Splenomegaly. This could be secondary to portal hypertension. 3. Moderate ascites. 4. Calcified gallstone. Stefan Grier MD Gall Bladder Ultrasound 12/27/17 0000 Signed Impressions: Service Date/Time: Wednesday, December 27, 2017 21:16 - CONCLUSION: 1. Diffusely abnormal liver secondary to cirrhosis and hepatic steatosis. 2. Gallbladder wall thickening. This is nonspecific. This can be seen with hepatic disease. It also can be seen with cholecystitis in the correct clinical situation. Gallstones were not demonstrated on the ultrasound examination but are clearly present on the CT examination. Stefan Grier MD Procedures Paracentesis EGD Objective Remarks GENERAL: 52-year-old male lying in bed orotracheally intubated SKIN: Warm and dry. Jaundiced HEAD: Atraumatic. Normocephalic. EYES: Pupils equal and round about 3 millimeters, positive for conjunctival icterus. ENT: No nasal bleeding or discharge. Mucous membranes dry and pink. Orotracheally intubated NECK: Trachea midline. Cannot appreciate JVD due to body habitus. Left IJ is clean dry and intact CARDIOVASCULAR: Regular rate and rhythm. S1, S2. No S4. Without murmur RESPIRATORY:Breath sounds equal bilaterally, but reduced in bases. GASTROINTESTINAL: Abdomen distended abdomen nontender obese. There is drainage from bilateral flanks, previous paracentesis sites. Peritoneal drain in place now. MUSCULOSKELETAL: Extremities -bilateral lower extreme 1+ pitting edema NEUROLOGICAL: Sedated but localizes to pain. No obvious cranial nerve deficits. Motor grossly within normal limits. Urinary Catheter: Yes Assessment to: Continue Key insert reason: ICU Pt Getting Diuretics Vascular Central Line Catheter: Yes Assessment to: Continue Date of Insertion: December 31, 2017 Line: Central Venous Catheter Side: Left Location: Internal, Jugular A/P Assessment and Plan NEURO/PSYCH: Alcohol withdrawal Alcohol dependence On propofol drip micrograms per kilogram per minute for sedation while intubated Previously on CIWA protocol with Lorazepam. DC scheduled lorazepam Supplement thiamine, folic acid and MVI with vitamin bag 3 days and switch to IV thiamine on 12/31. Continue while n.p.o. Alcohol cessation encouraged RESP: Acute hypoxemic respiratory failure Likely OHS, STAS PRVC 18/550/1./ Ventilator bundle. Albuterol/ipratropium aerosols every 4 hours, albuterol aerosols every 2 hours as needed dyspnea Chest x-ray in 01/08 -after re-advance the ET tube with resolution of left lower lobe infiltrate. Repeat chest x-ray tomorrow Actively diuresing CV: History of hypertension -Holding amlodipine 5 mg due to GI bleed and Spironolactone 50 mg p.o. daily -Systolic hypertension. As needed labetalol, Nitropaste and nicardipine drip to maintain systolic blood pressure less than 170 -Diuresis with Lasix per nephrology. Currently on furosemide drip at 10 mg an hour GI: Upper GI bleed secondary to esophageal varices Ascites/abdominal Liver cirrhosis/hepatic steatosis Cholelithiasis Elevated lipase Elevated ammonia Hypoalbuminemia EGD 12/28 revealed -esophageal varices/nipple midesophagus with 3 bands noted. Portal gastropathy. Hiatal hernia. Repeat EGD per GI Dobbhoff tube now on trickle feeds. TPN at 50 mL Pentoxifylline 400 mg every 8 hours. Continue pantoprazole infusion at 8 mg an hour, octreotide infusion at 25 mcg/ hr. Status post paracentesis 12/28-3 L. repeat paracentesis with 3.5L removed CT abdomen/pelvis revealed no sequelae of pancreatitis. CT aorta revealed no signs of dissection or leakage. Lactulose 30 every 6 hours, docusate sodium liquid 100 mg twice daily, senna 8.8 mg twice daily and polyethylene glycol 17 g twice daily. Continue metoclopramide 5 every 8. Having BM Reevaluate discriminant function and MELD score in a.m. 01/09 FEN//Endo: Hypocalcemia Hypernatremia -Monitor renal function closely. Sliding scale insulin Accu-Cheks with NovoLog/low regimen every 6 hours to maintain euglycemia 10 units insulin in TPN Decreased sodium chloride in TPN see orders ID: Probable sepsis Noted staph epi blood culture 12/31+ probable contamination Possible SBP -gram-negative rods 01/07 Linezolid and piperacillin/tazobactam renally dosed Repeat sputum cx 01/05 Pertinent cultures 01/07 -peritoneal fluid -gram-negative rods 12/31 -blood cultures 1 out of 4 staph epi. 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 Hb 6.9 INR 1.5 today. s/p 1 unit of PRBC and transfuse 3 units PRBCs 01/08 -Serially monitor INR, phytonadione 5 mg given 12/31 -Hemoglobin level slowly trending downward RENAL: Acute kidney injury Possible hepatorenal syndrome Possible contrast nephropathy, vs HRS. Urine sodium 11. Urine creatinine elevated. Negative urine eosinophils. No hydronephrosis on CAT scan. Nephrology Dr. Elder. Furosemide 10 mg an hour with albumin 25 g every 12 hours No hydronephrosis PROPH: -Bilateral lower extremity SCDs. IV pantoprazole infusion. Chemical DVT prophylaxis is contraindicated at this time LINES: -Utilize peripheral IVs, left IJ CVL day placed 12/31 Level 2 follow-up Constantine Alvarado MD January 08, 2018 09:36
[2018-01-08 10:06] LABS: MEAN CELL VOLUME 89.7 FL (80.0-100.0); MEAN CORPUSCULAR HEMOGLOBIN 29.6 PG (27.0-34.0); MEAN PLATELET VOLUME 7.7 FL (7.0-11.0); PLATELET COUNT 90 TH/MM3 (150-450)
[2018-01-08 10:10] LABS: HEMATOCRIT 13.4 % (39.0-51.0); HEMOGLOBIN 4.4 GM/DL (13.0-17.0)
[2018-01-08 10:19] LABS: INTERNATIONAL NORMALIZED RATIO 1.6 RATIO; PROTHROMBIN TIME - PATIENT 15.8 SEC (9.8-11.6)
[2018-01-08] MEDS ORDERED: THIAMINE INJ 100 MG in SODIUM CHLORIDE 0.9% INJ 100 ML IV ONE (11:00)
[2018-01-08] MEDS: FUROSEMIDE INJ 100 MG in SODIUM CHLORIDE 0.9% INJ 90 ML IV SCH ×2 (11:05→19:43)
[2018-01-08] MEDS: ALBUMIN 25% INJ 50 ML IV SCH ×2 (11:05→20:46)
--- NOTE | 2018-01-08 11:49 | HHI.HCPN ---
Reason for visit a. To assist with evaluation and management of symptoms including: dyspnea, pain. b. To assist medical decision maker(s) with: better understanding of current medical conditions; weighing benefits/burdens of medical treatment options; making medical treatment decisions. . Subjective/Interval History Patient seen to follow-up today on comfort, planned meeting with potential decision-makers. Has remained in the ICU, critically ill. Remains on mechanical vent. Hemoglobin critically low today 4.4, hematocrit 13.4. Ordered for transfusion 3 units RBCs. Platelets 90. BUN and creatinine remain elevated 55/2.57. Continues to have arge output from paracentesis/pigtail site left abdomen. On low/trickle amount tube feeding. Also on TPN. On octreotide, pantoprazole, TPN. On propofol 35 mics/kilogram/minute. Pt examined no visitors present. Minimally responsive to exam. Significant jaundice. Discussed w primary nurse, updated on pt 's contact information. She informs me pt mother has not been in today. Call to Yuliya Henderson, lengthy discussion with her via speaker phone with Roro Willams MSW palliative SW also participating. . Family/friend interactions Discussion with , x 48 minutes, included: Palliative care role, team members, reason for consult Review of hospital presentation, hospital course up until this point current medical conditions, prognosis, limited treatment options Legal decision makers per [place] statutes; wishes to serve as legal proxy however she also wishes to involve patient mother with any decision- making if mother will participate CODE STATUS[] review benefits/burdens of resuscitation, endorses DNR should remain in place Palliative care contact information provided, also provided her with ICU telephone number, patient pin number so she may remain informed in patient care/ updates Lengthy discussion with regarding hospital course, current conditions treatments in place and overall prognosis. Review patient very high risk for continued deterioration and , despite ongoing aggressive interventions and treatments. Review proxy decision-making in terms of reflecting what patient's wishes would be--Ms. Navarrete indicates that she and the patient had in the past during their marriage discussed things such as life support, comatose states etc. when her own father was critically ill. She shares that she last communicated with the patient about 1 year ago, and that they have been though not for the past 5 years. Prior to that they were for nearly 20 years. She is living in [place] wonders if she should travel to [place] to see him, advised that she can remain updated and in communication via phone though she can travel here if she feels she needs to do so. Gently explore with her possible decisions going forward including potential for tracheostomy and PEG tube should he survive current acute course and require prolonged ventilation, further review that he does remain at ongoing risk for complications setbacks. Alternatively briefly, gently explore that he has the option/right to transition to comfort focus if he would no longer want to continue with artificial interventions/life support, this would involve removal of artificial measures and application of comfort-based treatments only and allowing for natural . All questions answered to the best of my ability. Provided her with my direct contact information as well as ICU contact information. No further decisions made today, she is going to continue to process things and will ask questions as needed. She requests that nursing, palliative pass on to patient mother that she does wish to involve her if she wants to communicate with her. She also requested patient television be turned onto [email or web address] as he loves all sports. . She is open to ongoing conversations and updates as clinical course evolves. Advance Directives Living Will: Never completed Health Care Surrogate: Never completed Durable Power of Branner Machine Tender: Never completed Advance Directive Specifics Health Care Surrogate(s): Documented care wishes: No written advanced directives. . Objective Vital Signs Date Time Temp Pulse Resp B/P (MAP) Pulse Ox O2 Delivery O2 Flow Rate FiO2 01/08/18 11:29 98.9 90 18 103/52 100 01/08/18 10:54 98.4 94 19 105/55 100 01/08/18 10:00 94 01/08/18 08:39 97 100 01/08/18 08:00 98 01/08/18 08:00 40 01/08/18 08:00 98.2 103 23 116/50 (72) 100 01/08/18 06:00 103 01/08/18 04:18 100 40 01/08/18 04:00 97 01/08/18 04:00 97.9 97 23 119/56 (77) 100 01/08/18 04:00 40 01/08/18 02:00 89 01/08/18 01:10 100 40 01/08/18 00:00 97.8 88 21 112/54 (73) 100 01/08/18 00:00 88 01/08/18 00:00 40 01/07/18 22:06 100 40 01/07/18 22:00 86 01/07/18 20:00 82 01/07/18 20:00 40 01/07/18 20:00 97.8 82 19 109/56 (73) 100 01/07/18 19:15 100 40 01/07/18 18:00 89 01/07/18 16:00 84 01/07/18 16:00 40 01/07/18 16:00 97.8 84 19 109/56 (73) 100 01/07/18 15:51 100 40 01/07/18 14:00 84 01/07/18 12:12 98 40 01/07/18 12:00 97.7 83 20 86/48 (61) 100 01/07/18 12:00 40 01/07/18 12:00 84 Intake & Output 01/08/18 01/08/18 07:00 19:00 Intake Total 2740.8 ml 590 ml Output Total 3250 ml Balance -509.2 ml 590 ml IV Total 2480.8 ml 340 ml Tube Feeding 0 ml Blood Product IV Normal Saline Flush 250 ml Tube Irrigant 260 ml Output Urine Total 750 ml Stool Total 400 ml Drainage Total 2100 ml Physical Exam CONSTITUTIONAL/GENERAL: This is a critically ill, obese male, in no apparent distress. TUBES/LINES/DRAINS: ETT, Dobbhoff right nare, left jugular central line, PIV x 2 , abdominal pigtail catheter LLQ, wound drain bag LLQ, bilateral soft wrist restraints, Key, rectal tube, SCDs. SKIN: + jaundice. Ecchymoses on upper extremities. Skin warm/dry HEAD: Atraumatic. Normocephalic. EYES: Pupils equal and round and reactive. + scleral icterus, slight scleral edema. No injection or drainage. Fundi not examined. ENT: Unable to assess hearing, Nose without bleeding or purulent drainage. Throat difficult to visualize due to tubes. CARDIOVASCULAR: Regular rate and rhythm without murmurs. RESPIRATORY/CHEST: On mech vent, respirations even/unlabored via ETT> Breath sounds equal and diminished bilaterally. GASTROINTESTINAL: Abdomen protuberant, distended, RLQ pigtail drain in place, + dark bloody drainage. Tube feed infusing via NG tube. Bowel sounds intermittent. GENITOURINARY: Without palpable bladder distension. Key catheter in place dark orange/brown urine. MUSCULOSKELETAL: Lower extremities with pitting edema. Upper extremities with pitting. LYMPHATICS: No palpable cervical or supraclavicular adenopathy. NEUROLOGICAL: Does not open eyes to voice or exam, localizes to pain. PSYCHIATRIC: sedated. . Diagnostic Tests Laboratory Laboratory Tests Test 01/05/18 12:15 01/06/18 03:54 01/06/18 08:54 01/07/18 05:00 Peritoneal Fluid WBC 245 /MM3 (0-10) Peritoneal Fluid RBC 202 /MM3 (0-0) Peritoneal Fluid Neutrophils 10 % Peritoneal Fluid Lymphocytes 85 % Peritoneal Fluid Monocytes 4 % Peritoneal Fluid Eosinophils 1 % Peritoneal Fluid Total Protein 1.2 GM/DL Peritoneal Fluid Albumin 0.7 G/DL Peritoneal Fluid LDH 62 U/L Peritoneal Fluid Glucose 147 MG/DL White Blood Count 8.3 TH/MM3 (4.0-11.0) 8.4 TH/MM3 (4.0-11.0) Red Blood Count 2.64 MIL/MM3 (4.50-5.90) 2.62 MIL/MM3 (4.50-5.90) Hemoglobin 7.6 GM/DL (13.0-17.0) 7.7 GM/DL (13.0-17.0) Hematocrit 22.7 % (39.0-51.0) 22.8 % (39.0-51.0) Mean Corpuscular Volume 86.1 FL (80.0-100.0) 87.0 FL (80.0-100.0) Mean Corpuscular Hemoglobin 28.8 PG (27.0-34.0) 29.2 PG (27.0-34.0) Mean Corpuscular Hemoglobin Concent 33.4 % (32.0-36.0) 33.6 % (32.0-36.0) Red Cell Distribution Width 25.3 % (11.6-17.2) 26.5 % (11.6-17.2) Platelet Count 145 TH/MM3 (150-450) 115 TH/MM3 (150-450) Mean Platelet Volume 7.5 FL (7.0-11.0) 7.3 FL (7.0-11.0) Neutrophils (%) (Auto) 80.1 % (16.0-70.0) 78.4 % (16.0-70.0) Lymphocytes (%) (Auto) 6.2 % (9.0-44.0) 6.6 % (9.0-44.0) Monocytes (%) (Auto) 8.6 % (0.0-8.0) 11.3 % (0.0-8.0) Eosinophils (%) (Auto) 2.8 % (0.0-4.0) 2.1 % (0.0-4.0) Basophils (%) (Auto) 2.3 % (0.0-2.0) 1.6 % (0.0-2.0) Neutrophils # (Auto) 6.7 TH/MM3 (1.8-7.7) 6.6 TH/MM3 (1.8-7.7) Lymphocytes # (Auto) 0.5 TH/MM3 (1.0-4.8) 0.6 TH/MM3 (1.0-4.8) Monocytes # (Auto) 0.7 TH/MM3 (0-0.9) 0.9 TH/MM3 (0-0.9) Eosinophils # (Auto) 0.2 TH/MM3 (0-0.4) 0.2 TH/MM3 (0-0.4) Basophils # (Auto) 0.2 TH/MM3 (0-0.2) 0.1 TH/MM3 (0-0.2) CBC Comment AUTO DIFF AUTO DIFF Differential Total Cells Counted 100 100 Neutrophils % (Manual) 53 % (16-70) 64 % (16-70) Band Neutrophils % 23 % (0-6) 20 % (0-6) Lymphocytes % 10 % (9-44) 6 % (9-44) Monocytes % 7 % (0-8) 7 % (0-8) Eosinophils % 7 % (0-4) 3 % (0-4) Neutrophils # (Manual) 6.3 TH/MM3 (1.8-7.7) 7.1 TH/MM3 (1.8-7.7) Differential Comment FINAL DIFF MANUAL FINAL DIFF MANUAL Platelet Estimate LOW (NORMAL) LOW (NORMAL) Platelet Morphology Comment NORMAL (NORMAL) NORMAL (NORMAL) Target Cells 1+ (NORMAL) 1+ (NORMAL) Blood Urea Nitrogen 52 MG/DL (7-18) 47 MG/DL (7-18) Creatinine 3.29 MG/DL (0.60-1.30) 2.67 MG/DL (0.60-1.30) Random Glucose 120 MG/DL (74-106) 111 MG/DL (74-106) Total Protein 6.7 GM/DL (6.4-8.2) 6.5 GM/DL (6.4-8.2) Albumin 3.8 GM/DL (3.4-5.0) 3.6 GM/DL (3.4-5.0) Calcium Level 8.3 MG/DL (8.5-10.1) 8.4 MG/DL (8.5-10.1) Phosphorus Level 3.6 MG/DL (2.5-4.9) Alkaline Phosphatase 56 U/L (45-117) 52 U/L (45-117) Aspartate Amino Transf (AST/SGOT) 156 U/L (15-37) 162 U/L (15-37) Alanine Aminotransferase (ALT/SGPT) 47 U/L (12-78) 50 U/L (12-78) Total Bilirubin 14.0 MG/DL (0.2-1.0) 14.1 MG/DL (0.2-1.0) Sodium Level 139 MEQ/L (136-145) 143 MEQ/L (136-145) Potassium Level 3.4 MEQ/L (3.5-5.1) 3.0 MEQ/L (3.5-5.1) Chloride Level 103 MEQ/L (98-107) 103 MEQ/L (98-107) Carbon Dioxide Level 24.7 MEQ/L (21.0-32.0) 26.6 MEQ/L (21.0-32.0) Anion Gap 11 MEQ/L (5-15) 13 MEQ/L (5-15) Estimat Glomerular Filtration Rate 20 ML/MIN (>89) 25 ML/MIN (>89) Blood Gas Puncture Site RT RADIAL Blood Gas Patient Temperature 98.6 Blood Gas HCO3 23 mmol/L (22-26) Blood Gas Base Excess -1.5 mmol/L (-2-2) Blood Gas Oxygen Saturation 94 % (90-100) Arterial Blood pH 7.40 (7.380-7.420) Arterial Blood Partial Pressure CO2 38 mmHg (38-42) Arterial Blood Partial Pressure O2 87 mmHg (61-120) Arterial Blood Oxygen Content 9.9 Vol % (12.0-20.0) Arterial Blood Carboxyhemoglobin 2.2 % (0-4) Arterial Blood Methemoglobin 1.1 % (0-2) Blood Gas Hemoglobin 7.4 G/DL (12.0-16.0) Oxygen Delivery Device VENTILATOR Blood Gas Ventilator Setting APRV 4.5/0.04/06/10 Blood Gas Inspired Oxygen 30 % Magnesium Level 2.3 MG/DL (1.5-2.5) Test 01/08/18 03:15 01/08/18 04:10 01/08/18 09:49 Blood Urea Nitrogen 55 MG/DL (7-18) Creatinine 2.57 MG/DL (0.60-1.30) Random Glucose 114 MG/DL (74-106) Total Protein 5.0 GM/DL (6.4-8.2) Albumin 3.0 GM/DL (3.4-5.0) Calcium Level 8.2 MG/DL (8.5-10.1) Magnesium Level 2.3 MG/DL (1.5-2.5) Alkaline Phosphatase 36 U/L (45-117) Aspartate Amino Transf (AST/SGOT) 200 U/L (15-37) Alanine Aminotransferase (ALT/SGPT) 54 U/L (12-78) Total Bilirubin 12.0 MG/DL (0.2-1.0) Sodium Level 146 MEQ/L (136-145) Potassium Level 3.6 MEQ/L (3.5-5.1) Chloride Level 108 MEQ/L (98-107) Carbon Dioxide Level 28.5 MEQ/L (21.0-32.0) Anion Gap 10 MEQ/L (5-15) Estimat Glomerular Filtration Rate 27 ML/MIN (>89) White Blood Count 8.0 TH/MM3 (4.0-11.0) 9.0 TH/MM3 (4.0-11.0) Red Blood Count 1.49 MIL/MM3 (4.50-5.90) 1.50 MIL/MM3 (4.50-5.90) Hemoglobin 4.5 GM/DL (13.0-17.0) 4.4 GM/DL (13.0-17.0) Hematocrit 13.3 % (39.0-51.0) 13.4 % (39.0-51.0) Mean Corpuscular Volume 89.2 FL (80.0-100.0) 89.7 FL (80.0-100.0) Mean Corpuscular Hemoglobin 30.0 PG (27.0-34.0) 29.6 PG (27.0-34.0) Mean Corpuscular Hemoglobin Concent 33.6 % (32.0-36.0) 33.0 % (32.0-36.0) Red Cell Distribution Width 26.4 % (11.6-17.2) 27.0 % (11.6-17.2) Platelet Count 86 TH/MM3 (150-450) 90 TH/MM3 (150-450) Mean Platelet Volume 7.6 FL (7.0-11.0) 7.7 FL (7.0-11.0) Neutrophils (%) (Auto) 70.3 % (16.0-70.0) Lymphocytes (%) (Auto) 19.8 % (9.0-44.0) Monocytes (%) (Auto) 6.6 % (0.0-8.0) Eosinophils (%) (Auto) 2.3 % (0.0-4.0) Basophils (%) (Auto) 1.0 % (0.0-2.0) Neutrophils # (Auto) 5.6 TH/MM3 (1.8-7.7) Lymphocytes # (Auto) 1.6 TH/MM3 (1.0-4.8) Monocytes # (Auto) 0.5 TH/MM3 (0-0.9) Eosinophils # (Auto) 0.2 TH/MM3 (0-0.4) Basophils # (Auto) 0.1 TH/MM3 (0-0.2) CBC Comment AUTO DIFF Differential Total Cells Counted 100 Neutrophils % (Manual) 60 % (16-70) Band Neutrophils % 15 % (0-6) Lymphocytes % 10 % (9-44) Monocytes % 6 % (0-8) Eosinophils % 6 % (0-4) Basophils % 2 % (0-2) Neutrophils # (Manual) 6.1 TH/MM3 (1.8-7.7) Metamyelocytes 1 % (0-1) Nucleated Red Blood Cells 1 /100 WBC (0-0) Differential Comment FINAL DIFF MANUAL Platelet Estimate LOW (NORMAL) Platelet Morphology Comment NORMAL (NORMAL) Polychromasia 2.4 % (0.0-1.9) Basophilic Stippling FAINT (NORMAL) Prothrombin Time 15.8 SEC (9.8-11.6) Prothromb Time International Ratio 1.6 RATIO Activated Partial Thromboplast Time 36.6 SEC (24.3-30.1) Fibrinogen 153 mg/dL (227-377) Result Diagram: 01/08/18 0949 01/08/18 0315 Microbiology Microbiology Date/Time Source Procedure Growth Status 01/05/18 12:15 Fluid Peritoneal Fluid Gram Stain - Final Complete 01/05/18 12:15 Body Fluid Culture - Final Klebsiella Oxytoca Complete Imaging Last Impressions Chest X-Ray 01/08/18 0000 Signed Impressions: CONCLUSION: 1. Support equipment in satisfactory position. 2. Area of infiltrate at the left lung base no longer identified. Abdomen X-Ray 01/03/18 0600 Signed Impressions: CONCLUSION: No dilated bowel. Liver Ultrasound 12/31/17 0000 Signed Impressions: CONCLUSION: 1. Diffuse increased echogenicity throughout the liver suggestive of fatty inf iltration and/or hepatocellular disease. 2. Hepatomegaly. 3. Thickened gallbladder wall at 12 mm. No definite gallstones are seen. As ca n be seen with chronic gallbladder disease. Aorta CTA 12/28/17 0000 Signed Impressions: Service Date/Time: Thursday, December 28, 2017 21:00 - CONCLUSION: 1. Normal thoracic and abdominal aorta. No dissection/aneurysm seen. 2. Bibasilar consolidation and patchy densities in the upper lobes. 3. Hepatic steatosis with possible cirrhosis and moderate abdominal ascites. 4. Cholelithiasis. Aldair Francis MD Abdomen/Pelvis CT 12/27/171921 Signed Impressions: Service Date/Time: Wednesday, December 27, 2017 21:00 - CONCLUSION: 1. Diffusely abnormal liver likely secondary to hepatic steatosis and possible changes of cirrhosis. 2. Splenomegaly. This could be secondary to portal hypertension. 3. Moderate ascites. 4. Calcified gallstone. Stefan Grier MD Gall Bladder Ultrasound 12/27/17 0000 Signed Impressions: Service Date/Time: Wednesday, December 27, 2017 21:16 - CONCLUSION: 1. Diffusely abnormal liver secondary to cirrhosis and hepatic steatosis. 2. Gallbladder wall thickening. This is nonspecific. This can be seen with hepatic disease. It also can be seen with cholecystitis in the correct clinical situation. Gallstones were not demonstrated on the ultrasound examination but are clearly present on the CT examination. Stefan Grier MD Assessment and Plan Disease Oriented Problem List: (1) Probable sepsis (2) Abnormal INR (3) Alcoholic cirrhosis (4) Hyponatremia (5) Ascites (6) Acute renal failure (7) Upper GI bleed (8) Coagulopathy (9) Anemia requiring transfusions (10) Transaminitis (11) Hyperbilirubinemia Symptom Scale: (1) Pain 0-10 Scale: Unable to quantify (2) Dyspnea 0-10 Scale: Unable to quantify Pertinent Non-Medical Issues Psychosocial:Lives with his mother, Debo. Legally to estranged , Yuliya (lives in [place]). No children. Spiritual: Faith agustina. Senior Clinical Research Scientist requested. Legal:Patient is not capacitated to make his own health care decisions, uncertain if he will regain capacity. Mr. Cedillo has never completed written advanced directives. According to [email or web address], medical proxy decision maker would fall to patient's spouse, no contact information. Google search conducted , attempted to contact possible match. Numbers just ring or are not working numbers. [employer] resulted, Yuliya located and requests joint family meeting and medical update on 01/08/18 at 11am. Ethical issues impacting care: No known concerns at this time. . Important Contacts Yuliya Henderson, : [phone] (cell) Debo Henderson, mother: [phone] (cell), (home) . Prognosis Mr. 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 Overall prognosis is poor. . Code Status: No Code Plan * Patient is not capacitated to make his own health care decisions, uncertain if he will regain capacity. Mr. Cedillo has never completed written advanced directives. According to [email or web address], medical proxy decision maker would fall to patient's spouse, no contact information. Google search conducted. [employer] resulted, Yuliya located and requests joint family meeting and medical update on 01/08/18 at 11am. Patient mother not present to participate in family meeting with patient today 01/08/18; patient Yuliya Henderson endorses she does wish to serve as healthcare proxy for this patient. Yuliya does also wish to involve patient mother with decision-making however at this time patient mother has expressed that she does not wish to speak with Yuliya. * NO CODE * GOALS: Discussion at length today 01/08/18 with patient /proxy , no decisions made today, she is going to continue to process things and will ask questions as needed. She endorses DNR should remain in place. She understands patient condition critical high risk for further deterioration and . She also understands he has the option to transition to comfort focus, de-escalate. She requests that nursing, palliative pass on to patient mother that she does wish to involve her if she wants to communicate with her. She also requested patient television be turned onto [employer] as he loves all sports. She is open to ongoing conversations and updates as clinical course evolves. * SYMPTOMS; pain: sedated on mech vent. No obvious signs of pain. Patient unresponsive. Dyspnea: on mech vent, sedated. No new medication recommendations at this time. * Palliative care will continue to follow throughout hospitalization to assist with clarification of medical treatment goals and symptom management as needed. . Time Spent Total Floor Time (mins): 60 (Chart review, PE, discussion with decision-maker/ , discussion with primary nurse, critical care) Attestation To help prompt me to consider important information that might be impacting today's encounter and assessment, information from prior notes written by myself or my colleagues may have been "brought forward" into today's note. My signature on this note, however, is an attestation that I personally performed the exam, history, and/or decision-making noted today, and, unless otherwise indicated, the interactions with patient, family, and staff as well as the review of records all occurred today. I also attest that the listed assessment and stated plan reflect my best clinical judgment today based on the combination of historical information, prior notes, and today's exam/ interactions. When time spent is documented, it refers only to time spent today by the signer, or if indicated, combined time spent today by collaborating physician/nurse practitioner. Glo Morgan January 08, 2018 11:49
[2018-01-08 13:23] LABS: AMYLASE BODY FLUID 15 U/L; AMYLASE BODY FLUID TYPE PERITONEAL
--- NOTE | 2018-01-08 14:28 | HHI.GIFU ---
Subjective Remarks Pt remains critically ill on sedation and mechanically ventilated Mother at bedside talking with wound care specialist Palliative care note reviewed, pt has a he has been from for 5 years that lives in [place] who is the decision maker Peritoneal drain in place with approx 1600 mL of bloody colored drainage Bags to bilateral lower quadrants over previous paracentesis sites (Sandra Fernandes) Objective Vitals I&O Vital Signs Date Time Temp Pulse Resp B/P (MAP) Pulse Ox O2 Delivery O2 Flow Rate FiO2 01/08/18 13:42 98.1 88 18 110/55 100 01/08/18 13:32 98.1 87 18 110/55 100 01/08/18 12:57 98.1 85 18 108/55 100 01/08/18 12:19 98.2 87 18 106/53 100 01/08/18 12:12 100 70 01/08/18 12:00 98.2 89 18 105/53 (70) 100 01/08/18 12:00 70 01/08/18 12:00 89 01/08/18 12:00 89 01/08/18 11:29 98.9 90 18 103/52 100 01/08/18 10:54 98.4 94 19 105/55 100 01/08/18 10:00 94 01/08/18 08:39 97 100 01/08/18 08:00 98 01/08/18 08:00 40 01/08/18 08:00 98.2 103 23 116/50 (72) 100 01/08/18 06:00 103 01/08/18 04:18 100 40 01/08/18 04:00 97 01/08/18 04:00 97.9 97 23 119/56 (77) 100 01/08/18 04:00 40 01/08/18 02:00 89 01/08/18 01:10 100 40 01/08/18 00:00 97.8 88 21 112/54 (73) 100 01/08/18 00:00 88 01/08/18 00:00 40 01/07/18 22:06 100 40 01/07/18 22:00 86 01/07/18 20:00 82 01/07/18 20:00 40 01/07/18 20:00 97.8 82 19 109/56 (73) 100 5/29/18 19:15 100 40 01/07/18 18:00 89 01/07/18 16:00 84 01/07/18 16:00 40 01/07/18 16:00 97.8 84 19 109/56 (73) 100 01/07/18 15:51 100 40 I/O 01/07/18 01/07/18 01/07/18 01/08/18 01/08/18 01/08/18 07:00 15:00 23:00 07:00 15:00 23:00 Intake Total 1196 ml 1902 ml 1000 ml 1940.8 ml 1571 ml Output Total 7135 ml 9050 ml 3250 ml Balance -5939 ml 1902 ml -8050 ml -1309.2 ml 1571 ml IV Total 932 ml 1902 ml 1000 ml 1680.8 ml 440 ml Tube Feeding 64 ml 0 ml Packed Cells 800 ml Blood Product IV Normal Saline Flush 331 ml Tube Irrigant 200 ml 260 ml Output Urine Total 2300 ml 1900 ml 750 ml Stool Total 500 ml 100 ml 400 ml Gastric Drainage Total 210 ml Drainage Total 4125 ml 7050 ml 2100 ml Laboratory Laboratory Tests Test 01/08/18 03:15 01/08/18 04:10 01/08/18 09:49 Blood Urea Nitrogen 55 Creatinine 2.57 Random Glucose 114 Total Protein 5.0 Albumin 3.0 Calcium Level 8.2 Magnesium Level 2.3 Alkaline Phosphatase 36 Aspartate Amino Transf (AST/SGOT) 200 Alanine Aminotransferase (ALT/SGPT) 54 Total Bilirubin 12.0 Sodium Level 146 Potassium Level 3.6 Chloride Level 108 Carbon Dioxide Level 28.5 Anion Gap 10 Estimat Glomerular Filtration Rate 27 White Blood Count 8.0 9.0 Red Blood Count 1.49 1.50 Hemoglobin 4.5 4.4 Hematocrit 13.3 13.4 Mean Corpuscular Volume 89.2 89.7 Mean Corpuscular Hemoglobin 30.0 29.6 Mean Corpuscular Hemoglobin Concent 33.6 33.0 Red Cell Distribution Width 26.4 27.0 Platelet Count 86 90 Mean Platelet Volume 7.6 7.7 Neutrophils (%) (Auto) 70.3 Lymphocytes (%) (Auto) 19.8 Monocytes (%) (Auto) 6.6 Eosinophils (%) (Auto) 2.3 Basophils (%) (Auto) 1.0 Neutrophils # (Auto) 5.6 Lymphocytes # (Auto) 1.6 Monocytes # (Auto) 0.5 Eosinophils # (Auto) 0.2 Basophils # (Auto) 0.1 CBC Comment AUTO DIFF Differential Total Cells Counted 100 Neutrophils % (Manual) 60 Band Neutrophils % 15 Lymphocytes % 10 Monocytes % 6 Eosinophils % 6 Basophils % 2 Neutrophils # (Manual) 6.1 Metamyelocytes 1 Nucleated Red Blood Cells 1 Differential Comment FINAL DIFF MANUAL Platelet Estimate LOW Platelet Morphology Comment NORMAL Polychromasia 2.4 Basophilic Stippling FAINT Prothrombin Time 15.8 Prothromb Time International Ratio 1.6 Activated Partial Thromboplast Time 36.6 Fibrinogen 153 Date/Time Source Procedure Growth Status 01/02/18 08:38 Blood Peripheral Aerobic Blood Culture - Final NO GROWTH IN 5 DAYS Complete 01/02/18 08:38 Blood Peripheral Anaerobic Blood Culture - Final NO GROWTH IN 5 DAYS Complete 01/05/18 12:15 Fluid Peritoneal Fluid Gram Stain - Final Complete 01/05/18 12:15 Body Fluid Culture - Final Klebsiella Oxytoca Complete 01/05/18 09:50 Sputum Endotracheal Gram Stain - Final Complete 01/05/18 09:50 Sputum Endotracheal Sputum Culture - Final RARE GROWTH NORMAL RESPIRATORY AISHWARYA Complete 12/30/17 08:45 Urine Catheterized Urine Urine Culture - Final NO GROWTH IN 48 HOURS. Complete Imaging Last Impressions Chest X-Ray 01/08/18 0000 Signed Impressions: CONCLUSION: 1. Support equipment in satisfactory position. 2. Area of infiltrate at the left lung base no longer identified. Abdomen X-Ray 01/03/18 0600 Signed Impressions: CONCLUSION: No dilated bowel. Liver Ultrasound 12/31/17 0000 Signed Impressions: CONCLUSION: 1. Diffuse increased echogenicity throughout the liver suggestive of fatty inf iltration and/or hepatocellular disease. 2. Hepatomegaly. 3. Thickened gallbladder wall at 12 mm. No definite gallstones are seen. As ca n be seen with chronic gallbladder disease. Aorta CTA 12/28/17 0000 Signed Impressions: Service Date/Time: Thursday, December 28, 2017 21:00 - CONCLUSION: 1. Normal thoracic and abdominal aorta. No dissection/aneurysm seen. 2. Bibasilar consolidation and patchy densities in the upper lobes. 3. Hepatic steatosis with possible cirrhosis and moderate abdominal ascites. 4. Cholelithiasis. Aldair Francis MD Abdomen/Pelvis CT 12/[id number]/[id number] Signed Impressions: Service Date/Time: Wednesday, December 27, 2017 21:00 - CONCLUSION: 1. Diffusely abnormal liver likely secondary to hepatic steatosis and possible changes of cirrhosis. 2. Splenomegaly. This could be secondary to portal hypertension. 3. Moderate ascites. 4. Calcified gallstone. Stefan Grier MD Gall Bladder Ultrasound 12/27/17 0000 Signed Impressions: Service Date/Time: Wednesday, December 27, 2017 21:16 - CONCLUSION: 1. Diffusely abnormal liver secondary to cirrhosis and hepatic steatosis. 2. Gallbladder wall thickening. This is nonspecific. This can be seen with hepatic disease. It also can be seen with cholecystitis in the correct clinical situation. Gallstones were not demonstrated on the ultrasound examination but are clearly present on the CT examination. Stefan Grier MD Physical Exam HEENT: Normocephalic; atraumatic CHEST: Respirations synchronized with vent via ETT CARDIAC: RRR ABDOMEN: Distended, firm, bowel sounds active. Dobbhoff clamped. Collection bag to RLQ and LLQ abdomen previous paracentesis sites, LLQ peritoneal drain to Key bag with 1600 mL of bloody colored drainage EXTREMITIES: Generalized edema SKIN: (+) jaundice TRANSCRIPTIONIST: Sedated, unresponsive (Sandra Fernandes) Assessment and Plan Plan Assessment: - Nausea and vomiting- hematemesis x 2 days H/H currently 8.6/25.9 S/P 2 U PRBCs Has never had EGD or colonoscopy CT abdomen and pelvis W IV contrast (12/27) --> Diffusely abnormal liver likely secondary to hepatic steatosis and possible changes of cirrhosis. Splenomegaly. This could be secondary to portal hypertension. Moderate ascites. US gallbladder (12/27) Diffusely abnormal liver secondary to cirrhosis and hepatic steatosis. Gallbladder wall thickening, nonspecific. - Transaminitis- ETOH abuse- drinks 1.75 L of vodka every 2-3 days DF-42 Currently AST-324 ALT-91 Alk phos-144 T bili-8.4 - Coumadin with supratherapeutic INR- INR 15.7 on admission now S/P 4 U FFP and Vit K (hospital [facility]) [facility] with duodenal ischemia diagnosed in June at [facility]- has been on Coumadin since then - Elevated lipase- lipase 447 - Leukocytosis and persistent fevers - Hyponatremia- ? secondary to Potomania and emesis EGD (12/28) --> Esophageal varices grade - 3 columns a nipple in midesophgus was seen, possible prior banding or source of bleeding one band applied above it. Additional band were applied under the level of the above area no active bleeding. Retroflexed views revealed a hiatal hernia Paracentesis on 12/28/17 3000 ml of fluid removed, cx with no growth at 72 hours. Cytology negative for malignant cells. Repeat paracentesis on 01/04 with 1.5 L removed (01/02) Pt remains in ICU, sedated on Propofol and Precedex and mechanically ventilated via ETT. on Dayron for BP support. Remains on Protonix and Octreotide gtt. Coagulopathy- INR 1.6 LFTs trending down. T bili remains significantly elevated but trending down currently 18. On Pentoxifylline. Pt still spiking fevers, no steroids indicated at this time. Abdomen remains distended and firm, no BM. Dobbhoff to low suction. KUB (01/02) --> Stable bowel gas pattern most consistent with adynamic ileus. On Reglan q8hrs. Decompressive colonoscopy on 01/02 --> Sigmoid diverticulosis, decompression tube placed KUB in AM revealed no dilated bowel (01/06) Pt remains sedated and intubated. Hgb dropped to 6.9 yesterday. 1 U PRBCs transfused. Bili remains significantly elevated but trending down. Increase in AST today. Pt on TF, vital running at 10 mL/hr. Also on TPN Abdomen distended and firm, fluid seeping from previous paracentesis sites, may benefit from repeat paracentesis (01/07) Pt remains critically ill, high level of PEEP currently at 16. EGD on hold. Repeat paracentesis done last night with pigtail catheter placed and secured. (01/08) Pt remains critically ill, significant drop in hgb noted today, pt has 3 U or PRBCs ordered and transfusing. Peritoneal drain with approximately 1600 mL of bloody colored drainage. Drainage bags to bilateral lower quadrants at previous paracentesis sites. Dobbhoff clamped. Palliative care note reviewed, pt has been from his for five years but not , she lives in [place] and is his decision maker at this time. at bedside speaking to . Plan: EGD on hold- too unstable Protonix gtt Octreotide gtt Lasix gtt Pt remains critically ill, will continue to follow Pt has been seen and examined by myself and Dr. Persaud and this note is written on his behalf (Sandra Fernandes) Physician Comments Seen and examined with [facility], no evidence of gi bleed. Blood in peritoneal drain. No clear benefit of repeating egd at this time, plus too unstable at this time. Over all prognosis poor, discussed with Dr Alvarado. GI will sign off, reconsult as needed. Thank you (Ankit Persaud MD) Sandra Fernandes January 08, 2018 14:28 Ankit Persaud MD January 08, 2018 17:53
[2018-01-08] MEDS ORDERED: PHYTONADIONE INJ 10 MG in SODIUM CHLORIDE 0.9% INJ 50 ML IV ONE (14:30)
--- NOTE | 2018-01-08 14:31 | HHI.NPPN ---
Subjective History of Present Illness 52-year-old male, Alcoholic hepatitis/cirrhosis received contrast study and acute renal failure Objective Data Data 01/08/18 01/09/18 19:00 07:00 Intake Total 1571 ml Balance 1571 ml IV Total 440 ml Packed Cells 800 ml Blood Product IV Normal Saline Flush 331 ml Vital Signs Date Time Temp Pulse Resp B/P (MAP) Pulse Ox O2 Delivery O2 Flow Rate FiO2 01/08/18 14:00 86 01/08/18 13:42 98.1 88 18 110/55 100 01/08/18 13:32 98.1 87 18 110/55 100 01/08/18 12:57 98.1 85 18 108/55 100 01/08/18 12:19 98.2 87 18 106/53 100 01/08/18 12:12 100 70 01/08/18 12:00 98.2 89 18 105/53 (70) 100 01/08/18 12:00 70 01/08/18 12:00 89 01/08/18 12:00 89 01/08/18 11:29 98.9 90 18 103/52 100 01/08/18 10:54 98.4 94 19 105/55 100 01/08/18 10:00 94 01/08/18 08:39 97 100 01/08/18 08:00 98 01/08/18 08:00 40 01/08/18 08:00 98.2 103 23 116/50 (72) 100 01/08/18 06:00 103 01/08/18 04:18 100 40 01/08/18 04:00 97 01/08/18 04:00 97.9 97 23 119/56 (77) 100 01/08/18 04:00 40 01/08/18 02:00 89 01/08/18 01:10 100 40 01/08/18 00:00 97.8 88 21 112/54 (73) 100 01/08/18 00:00 88 01/08/18 00:00 40 01/07/18 22:06 100 40 01/07/18 22:00 86 01/07/18 20:00 82 01/07/18 20:00 40 01/07/18 20:00 97.8 82 19 109/56 (73) 100 01/07/18 19:15 100 40 5/29/18 18:00 89 01/07/18 16:00 84 01/07/18 16:00 40 01/07/18 16:00 97.8 84 19 109/56 (73) 100 01/07/18 15:51 100 40 -: 01/08/18 0949 01/08/18 0315 Physical Exam General Appearance: Well Developed, Well Nourished Neck Neck Exam: Neck Supple Pulmonary Resp Exam: Clear Bilaterally, Diminished Breath Sounds Cardiology CV Exam: Regular, Normal Sinus Rhythm Gastrointestinal/Abdomen GI Exam: Soft, Distended Extremeties Extremities Exam: Moderate Edema Assessment/Plan Problem List: (1) Acute renal failure ICD Codes: N17.9 - Acute kidney failure, unspecified Plan: Patient has liver cirrhosis and possible hepatorenal syndrome is considered, he did receive contrast studies as well, His creatinine declined renal failure started on bicarbonate of albumin and Lasix Cr 2.57 Hb 4.4 3 units PRBC off Lasix Generalized edema Continue to monitor CMP Liver and Kidney function as Cr declined decompressive colonoscopy done Avoid nephrotoxins or dye studies (2) Upper GI bleed ICD Codes: K92.2 - Gastrointestinal hemorrhage, unspecified Plan: GI is following (3) Alcoholic cirrhosis ICD Codes: K70.30 - Alcoholic cirrhosis of liver without ascites Plan: Followed by GI (4) Coagulopathy ICD Codes: D68.9 - Coagulation defect, unspecified Plan: Patient has received blood product, FFP and PRBCs (5) Ascites ICD Codes: R18.8 - Other ascites Plan: Due to alcoholic cirrhosis (6) Hyponatremia ICD Codes: E87.1 - Hypo-osmolality and hyponatremia Plan: Sodium has improved Problem Qualifiers (1) Acute renal failure: Qualified Codes: N17.9 - Acute kidney failure, unspecified (2) Alcoholic cirrhosis: Qualified Codes: K70.31 - Alcoholic cirrhosis of liver with ascites (3) Ascites: Qualified Codes: K70.31 - Alcoholic cirrhosis of liver with ascites Ciro Elder MD January 08, 2018 14:31
[2018-01-08] MEDS: RESP: ALBUTEROL 2.5 MG/IPRATROPIUM 0.5 MG NEB (SCH) NEB ×2 (15:46→20:03)
[2018-01-08] MEDS: OCTREOTIDE INJ 500 MCG in SODIUM CHLORID 0.9% 500 ML INJ 499.5 ML IV SCH (17:24)
[2018-01-08] MEDS: SODIUM CHLORIDE IV-CENTRAL SCH ×9 (20:48)
[2018-01-08] MEDS: SODIUM ACETATE IV-CENTRAL SCH ×9 (20:48)
[2018-01-08] MEDS: [UNRECOGNIZED DRUG - OTHER] IV-CENTRAL SCH ×9 (20:48)
[2018-01-08 23:36] LABS: AUTOMATED NEUTROPHIL # 8.6 TH/MM3 (1.8-7.7); BASOPHIL # 0.1 TH/MM3 (0-0.2); BASOPHIL % 1.1 % (0.0-2.0); EOSINOPHIL # 0.4 TH/MM3 (0-0.4); EOSINOPHIL % 3.3 % (0.0-4.0); LYMPH % 11.3 % (9.0-44.0); LYMPHOCYTE # 1.3 TH/MM3 (1.0-4.8); MEAN CELL VOLUME 88.6 FL (80.0-100.0); MEAN CORPUSCULAR HEMOGLOBIN 30.1 PG (27.0-34.0); MEAN CORPUSCULAR HGB CONC 33.9 % (32.0-36.0); MEAN PLATELET VOLUME 7.8 FL (7.0-11.0); MONO % 6.8 % (0.0-8.0); MONOCYTE # 0.8 TH/MM3 (0-0.9); NEUT % 77.5 % (16.0-70.0); PLATELET COUNT 88 TH/MM3 (150-450); RED BLOOD COUNT 2.13 MIL/MM3 (4.50-5.90); RED CELL DISTRIBUTION WIDTH 18.8 % (11.6-17.2); WHITE BLOOD COUNT 11.1 TH/MM3 (4.0-11.0)
[2018-01-08 23:40] LABS: HEMATOCRIT 18.9 % (39.0-51.0); HEMOGLOBIN 6.4 GM/DL (13.0-17.0)
[2018-01-08 23:49] LABS: INTERNATIONAL NORMALIZED RATIO 1.4 RATIO
[2018-01-09] VITALS (21 sets, daily range): BP systolic 104–136; BP diastolic 43–66; PULSE 86–98; RESP 18–19; TEMP 97.5–98.9; O2SAT 94–100
[2018-01-09] MEDS: RESP: ALBUTEROL 2.5 MG/IPRATROPIUM 0.5 MG NEB (SCH) NEB ×7 (00:37→23:31)
[2018-01-09] MEDS: PIPERACIL-TAZO 2.25 GM PREMIX 50 ML IV SCH ×4 (01:51→21:19)
[2018-01-09] MEDS: PROPOFOL 1000 MG/100 ML INJ 100 ML IV PRN ×7 (02:00→19:42)
[2018-01-09] MEDS: INSULIN NovoLIN REGULAR SUPPLEMENTAL SCALE SQ SCH ×6 (04:00→20:00)
[2018-01-09] MEDS: CHLORHEXIDINE GLUCONATE 2 % 1 PACK (2 CLOTHS) TOP SCH (04:00)
--- NOTE | 2018-01-09 04:00 | RADRPT ---
EXAM DATE: 01/09/2018 3:30 AM EDT AGE/SEX: 52 years / Male INDICATIONS: Respiratory distress. CLINICAL DATA: This is the patient's subsequent encounter. Patient reports that signs and symptoms h ave been present for 2 weeks and indicates a pain score of Nonresponsive. MEDICAL/SURGICAL HISTORY: . Hypertension. Gastroesophageal reflux disease. Cirrhosis. None. COMPARISON: [facility] [place], CHEST SINGLE AP, 01/08/2018. . FINDINGS: Dobbhoff tube and ET tube have not changed. Left basilar opacity is present may be pleural effusion a nd/or consolidation not present previously with haziness to the right lung base probably pulmonary ed gabby. CONCLUSION: 1. Left lung base opacity may be pleural effusion and/or consolidation. 2. Pulmonary edema. Electronically signed by: Jennifer Sanz MD 01/09/2018 3:58 AM EDT
[2018-01-09] MEDS: PANTOPRAZOLE INJ 80 MG in SODIUM CHLORIDE 0.9% INJ 100 ML IV SCH ×2 (04:06→14:00)
[2018-01-09] MEDS: METOCLOPRAMIDE HCL 10 MG/2 ML VIAL IV PUSH SCH ×3 (05:04→21:21)
[2018-01-09] MEDS: PENTOXIFYLLINE 400 MG CONTROLLED RELEASE TAB PO SCH ×3 (05:05→22:00)
[2018-01-09] MEDS: FUROSEMIDE INJ 100 MG in SODIUM CHLORIDE 0.9% INJ 90 ML IV SCH (05:48)
[2018-01-09] MEDS: ARTIFICIAL TEARS OPTH SOLN 15 ML BTL EACH EYE SCH ×3 (06:41→23:00)
--- NOTE | 2018-01-09 06:46 | HHI.CCPN ---
Subjective Remarks/Hospital Course Patient is a 52-year-old male with history of alcohol dependence, on chronic Coumadin for "abdominal vein thrombosis", history of hypertension who presented to the emergency department with complaints of increasing jaundice, increasing abdominal girth and vomiting jade blood multiple times over the last 2 days. Patient admits to being a heavy drinker he drinks about 1.75 L bottle hard liquor every 2 days. ER workup showed patient had a hemoglobin of 8.1, INR was 15.7. PTT 156.1, white count of 13.6 with 10% bands. Also sodium was noted to be 119, AST 439 ALT 115 and bilirubin of 7.6. A stat CT abdomen pelvis showed moderate ascites, probable cirrhosis and hepatic steatosis, splenomegaly, and gallstones. Patient had been ordered to receive 2 units of PRBC, and total 4 units of FFP. INR, Hb will be rechecked after this and additional FFP will be given accordingly. 10 mg vitamin K also ordered. Unfortunately hospital is out of [facility]. I evaluated the patient in the emergency department. He initially had an alcohol level of 135. At the time of my exam he is in moderate distress appears to be slightly tremulous. I have initiated CIWA protocol. I will also start its Rocephin for SBP prophylaxis. Patient had been started on IV Protonix infusion and octreotide which will be continued. Patient clinically also appears to have at least moderate ascites but I am unable to perform paracentesis due to elevated INR. 12/28: Currently resting in bed complaining of abdominal pain. Short of breath and tachypnea. Complaining of nausea currently. Remains on nasal cannula. Patient does not desire his mother's to have knowledge about his alcohol use. 12/29: Afebrile. Remains intubated post EGD yesterday due to worsening hypoxia. Currently on PSV trial 26/05 at 40%. Remains on dexmedetomidine drip and attempt to wean with alcohol use and likely progression to DTs. Banding of varices noted. Pentoxifylline 400 mg every 8 hours initiated with appropriate 12/30: Awake on dexmedetomidine drip at 1 mcg/kg/min. Following commands and attempting to write. Nods his head when states he feels the effects of alcohol withdrawals. Afebrile. Continues to leak from prior site of paracentesis. 12/31: Diminished urine output noted overnight. Increasing FiO2 requirement. Bladder pressures measured currently elevated around 25. Will place tube to suction and notify GI. Nephrology consult placed. Will need central line. 01/01: T-max 100. Currently 99. Meld score 34. Discriminant function is 34. Tamera alcohol scale score 7. Arousable the ventilator. FiO2 increased to 40- 60% overnight. 350 cc from NG tube overnight. 01/02: T-max 99.8. No bowel movement overnight. Abdomen remains distended. More ascites output from left lower quadrant previous paracentesis site. Arousable on the ventilator and follows commands on sedation vacation. Remains on PEEP of 12. FiO2 60%. 01/03: Patient remains intubated sedated very critical. FiO2 had to be increased to 70%. I have increase PEEP from 12-14. Chest x-ray remains unchanged. T-max 100.5. Urine output 1.3 L. BUN 42 creatinine 3.5 hemoglobin 7.4. Bedside ultrasound shows at least moderate ascites. Plan for thoracentesis for fluid removal and also will help with vent dynamic. 01/04: Persistent problems with oxygenation related to diffuse basilar atelectasis. Patient converted to airway pressure release ventilation this morning. Caloric intake probably on the high side in view of propofol infusion. Will reduce TPN to 60 cc/h. Enteral feedings at trickle rate. 01/05: Patient placed on APRV mode 01/04 with T-hi 5 sec Pres hi 30, with release volumes around 800 cc. Good oxygen saturation 30% FiO2. X-ray shows improvement in bilateral consolidation persistent left lower lobe infiltrate. Urine output 1.5 L also 1.5 L out from left paracentesis site. Transfuse 1 U PRBC 01/06: Remains critically ill but making some progress. Reduce PHigh to 26, T high to 4.5, if tolerated well, attempt to switch to PC/AC with PEEP 18-20 and rita iTime. Urine output adequate 2.3 L in 24 hours. Paracentesis site draining approximately 1.4 L despite paracentesis and removal of 3.5 L yesterday. Increase Lasix to 60 mg IV q6hr, Creat improved to 3.29 01/07: Oxygenation modestly improved with very aggressive mean airway pressures , continue PEEP 1820. Abdominal girth and ascites have conspired to reduce functional residual capacity. Now a permanent peritoneal drain is in place and we will attempt to make some progress with gas exchange. Between the intractable ascites, morbid obesity, and respiratory failure it will be very difficult to remove this patient from positive pressure ventilation. 01/08: ET tube has migrated above the vocal cords. Directly visualized with glide scope after receiving 40 mg etomidate. Cuff was deflated several times and advanced with adequate tidal volumes post advancement. Follow-up chest x- ray revealed adequate placement of ET tube. Remains on furosemide will change to drip today. Subjective 01/09: Afebrile. FiO2 down to 65%. Continues with profuse drainage from pigtail site. Not tolerating tube feeds. Hemoglobin 6.4 units PRBCs. Will transfuse 1 unit today. Objective Vital Signs Date Time Temp Pulse Resp B/P (MAP) Pulse Ox O2 Delivery O2 Flow Rate FiO2 01/09/18 04:03 100 65 01/09/18 04:00 90 01/09/18 04:00 97.9 18 130/62 (84) 01/05/18 07:41 Ventilator Intake and Output 01/09/18 01/09/18 01/10/18 08:00 16:00 00:00 Intake Total 150 ml Output Total 2950 ml Balance -2800 ml Result Diagram: 01/08/18 2100 01/08/18 0315 Other Results Microbiology Date/Time Source Procedure Growth Status 01/02/18 08:38 Blood Peripheral Aerobic Blood Culture - Final NO GROWTH IN 5 DAYS Complete 01/02/18 08:38 Blood Peripheral Anaerobic Blood Culture - Final NO GROWTH IN 5 DAYS Complete 01/05/18 12:15 Fluid Peritoneal Fluid Gram Stain - Final Complete 01/05/18 12:15 Body Fluid Culture - Final Klebsiella Oxytoca Complete 01/05/18 09:50 Sputum Endotracheal Gram Stain - Final Complete 01/05/18 09:50 Sputum Endotracheal Sputum Culture - Final RARE GROWTH NORMAL RESPIRATORY AISHWARYA Complete 12/30/17 08:45 Urine Catheterized Urine Urine Culture - Final NO GROWTH IN 48 HOURS. Complete Imaging Last Impressions Chest X-Ray 01/09/18 0600 Signed Impressions: CONCLUSION: 1. Left lung base opacity may be pleural effusion and/or consolidation. 2. Pulmonary edema. Abdomen X-Ray 01/03/18 0600 Signed Impressions: CONCLUSION: No dilated bowel. Liver Ultrasound 12/31/17 0000 Signed Impressions: CONCLUSION: 1. Diffuse increased echogenicity throughout the liver suggestive of fatty inf iltration and/or hepatocellular disease. 2. Hepatomegaly. 3. Thickened gallbladder wall at 12 mm. No definite gallstones are seen. As ca n be seen with chronic gallbladder disease. Aorta CTA 12/28/17 0000 Signed Impressions: Service Date/Time: Thursday, December 28, 2017 21:00 - CONCLUSION: 1. Normal thoracic and abdominal aorta. No dissection/aneurysm seen. 2. Bibasilar consolidation and patchy densities in the upper lobes. 3. Hepatic steatosis with possible cirrhosis and moderate abdominal ascites. 4. Cholelithiasis. Aldair Francis MD Abdomen/Pelvis CT [id number] Signed Impressions: Service Date/Time: Wednesday, December 27, 2017 21:00 - CONCLUSION: 1. Diffusely abnormal liver likely secondary to hepatic steatosis and possible changes of cirrhosis. 2. Splenomegaly. This could be secondary to portal hypertension. 3. Moderate ascites. 4. Calcified gallstone. Stefan Grier MD Gall Bladder Ultrasound 12/27/17 0000 Signed Impressions: Service Date/Time: Wednesday, December 27, 2017 21:16 - CONCLUSION: 1. Diffusely abnormal liver secondary to cirrhosis and hepatic steatosis. 2. Gallbladder wall thickening. This is nonspecific. This can be seen with hepatic disease. It also can be seen with cholecystitis in the correct clinical situation. Gallstones were not demonstrated on the ultrasound examination but are clearly present on the CT examination. Stefan Grier MD Procedures Paracentesis EGD Objective Remarks GENERAL: 52-year-old male lying in bed orotracheally intubated SKIN: Warm and dry. Jaundiced HEAD: Atraumatic. Normocephalic. EYES: Pupils equal and round about 3 millimeters, positive for conjunctival icterus. ENT: No nasal bleeding or discharge. Mucous membranes dry and pink. Orotracheally intubated NECK: Trachea midline. Cannot appreciate JVD due to body habitus. Left IJ is clean dry and intact CARDIOVASCULAR: Regular rate and rhythm. S1, S2. No S4. Without murmur RESPIRATORY:Breath sounds equal bilaterally, but reduced in bases. GASTROINTESTINAL: Abdomen distended abdomen nontender obese. There is drainage from bilateral flanks, previous paracentesis sites. Peritoneal drain in place now. MUSCULOSKELETAL: Extremities -bilateral lower extreme 1+ pitting edema NEUROLOGICAL: Sedated but localizes to pain. No obvious cranial nerve deficits. Motor grossly within normal limits. Urinary Catheter: Yes Assessment to: Continue Key insert reason: Prolonged Immobilization Vascular Central Line Catheter: Yes Assessment to: Continue Date of Insertion: December 31, 2017 Line: Central Venous Catheter Side: Left Location: Internal, Jugular A/P Assessment and Plan NEURO/PSYCH: Alcohol withdrawal Alcohol dependence On propofol drip 30 micrograms per kilogram per minute for sedation while intubated Previously on CIWA protocol with Lorazepam. DC scheduled lorazepam Supplement thiamine, folic acid and MVI with vitamin bag 3 days and switch to IV thiamine on 12/31. Continue while n.p.o. Alcohol cessation encouraged RESP: Acute hypoxemic respiratory failure Likely OHS, STAS PRVC 18/550/1./ Ventilator bundle. Albuterol/ipratropium aerosols every 4 hours, albuterol aerosols every 2 hours as needed dyspnea Chest x-ray in 01/08 -after re-advance the ET tube with resolution of left lower lobe infiltrate. Repeat chest x-ray tomorrow Actively diuresing with furosemide drip at 10 mg an hour CV: History of hypertension -Holding amlodipine 5 mg due to GI bleed and Spironolactone 50 mg p.o. daily -Systolic hypertension. As needed labetalol, Nitropaste and nicardipine drip to maintain systolic blood pressure less than 170 -Diuresis with Lasix per nephrology. Currently on furosemide drip at 10 mg an hour GI: Upper GI bleed secondary to esophageal varices Ascites/abdominal Liver cirrhosis/hepatic steatosis Cholelithiasis Elevated lipase Elevated ammonia Hypoalbuminemia EGD 12/28 revealed -esophageal varices/nipple midesophagus with 3 bands noted. Portal gastropathy. Hiatal hernia. Repeat EGD per GI Dobbhoff tube now on trickle feeds. TPN at 50 mL Pentoxifylline 400 mg every 8 hours. Continue pantoprazole infusion at 8 mg an hour, octreotide infusion at 25 mcg/ hr. Status post paracentesis 12/28-3 L. repeat paracentesis with 3.5L removed CT abdomen/pelvis revealed no sequelae of pancreatitis. CT aorta revealed no signs of dissection or leakage. Lactulose 30 every 6 hours, docusate sodium liquid 100 mg twice daily, senna 8.8 mg twice daily and polyethylene glycol 17 g twice daily. Continue metoclopramide 5 every 8. Having BM MELD score in a.m. 01/09 - FEN//Endo: Hypocalcemia Hypernatremia -Monitor renal function closely. Sliding scale insulin Accu-Cheks with NovoLog/low regimen every 6 hours to maintain euglycemia 10 units insulin in TPN Decreased sodium chloride in TPN see orders A.m. laboratories pending ID: Probable sepsis Noted staph epi blood culture 12/31+ probable contamination Possible SBP -Klebsiella oxycota 01/07 Linezolid and piperacillin/tazobactam renally dosed Repeat sputum cx 01/05 growth Pertinent cultures 01/07 -peritoneal fluid -Klebsiella oxycota 12/31 -blood cultures 1 out of 4 staph epi. 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 Hb 6.9 INR 1.5 today. s/p 1 unit of PRBC and transfuse 3 units PRBCs 01/08. 1 unit PRBCs 01/09 -Serially monitor INR, phytonadione 5 mg given 12/31 -Hemoglobin level slowly trending downward RENAL: Acute kidney injury Possible hepatorenal syndrome Possible contrast nephropathy, vs HRS. Urine sodium 11. Urine creatinine elevated. Negative urine eosinophils. No hydronephrosis on CAT scan. Nephrology Dr. Elder. Furosemide 10 mg an hour with albumin 25 g every 12 hours No hydronephrosis PROPH: -Bilateral lower extremity SCDs. IV pantoprazole infusion. Chemical DVT prophylaxis is contraindicated at this time LINES: -Utilize peripheral IVs, left IJ CVL day placed 12/31 Level 3 follow-up Constantine Alvarado MD January 09, 2018 06:46
[2018-01-09 07:27] LABS: ALBUMIN 3.6 GM/DL (3.4-5.0); ALKALINE PHOSPHATASE 52 U/L (45-117); ALT (GPT) 68 U/L (12-78); AST (GOT) 210 U/L (15-37); BICARBONATE 26.2 MEQ/L (21.0-32.0); BLOOD UREA NITROGEN 58 MG/DL (7-18); CHLORIDE 108 MEQ/L (98-107); CREATININE 2.57 MG/DL (0.60-1.30); GLOMERULAR FILTRATION RATE 27 ML/MIN (>89); GLUCOSE,RANDOM 129 MG/DL (74-106); MAGNESIUM 2.3 MG/DL (1.5-2.5); PHOSPHORUS 3.3 MG/DL (2.5-4.9); SODIUM (NA) 146 MEQ/L (136-145); TOTAL BILIRUBIN ADULT 16.3 MG/DL (0.2-1.0); TOTAL PROTEIN 6.1 GM/DL (6.4-8.2)
[2018-01-09] MEDS: CHLORHEXIDINE 0.12% (ORAL KIT) 15 ML CUP MT SCH ×2 (08:00→20:00)
[2018-01-09] MEDS ORDERED: POTASSIUM CHLOR 40 MEQ PREMIX 100 ML IV ONE ×2 (08:30→09:30)
[2018-01-09] MEDS: SODIUM CHLORIDE 0.9% FLUSH 10 ML FLUSH IV FLUSH SCH ×3 (08:31→21:00)
[2018-01-09] MEDS: LACTULOSE SYRUP 20 GM/30 ML CUP PO SCH ×4 (08:32→21:20)
[2018-01-09] MEDS: THIAMINE INJ 100 MG in SODIUM CHLORIDE 0.9% INJ 100 ML IV SCH (08:49)
[2018-01-09] MEDS: ALBUMIN 25% INJ 50 ML IV SCH ×2 (08:49→21:20)
[2018-01-09] MEDS: OCTREOTIDE INJ 500 MCG in SODIUM CHLORID 0.9% 500 ML INJ 499.5 ML IV SCH (10:14)
[2018-01-09] MEDS: PHYTONADIONE 5 MG/SWFI 5 ML ORAL SYR PO SCH (11:29)
--- NOTE | 2018-01-09 14:00 | HHI.NPPN ---
Subjective History of Present Illness 52-year-old male, Alcoholic hepatitis/cirrhosis received contrast study and acute renal failure Objective Data Data 01/09/18 01/10/18 19:00 07:00 Intake Total 50 ml Balance 50 ml Blood Product IV Normal Saline Flush 50 ml Vital Signs Date Time Temp Pulse Resp B/P (MAP) Pulse Ox O2 Delivery O2 Flow Rate FiO2 01/09/18 12:00 50 01/09/18 12:00 98.0 86 18 106/55 (72) 99 01/09/18 11:48 99 50 01/09/18 09:31 98.4 90 18 122/56 100 01/09/18 09:18 100 50 01/09/18 08:00 98.2 93 19 132/43 (72) 100 01/09/18 08:00 50 01/09/18 06:00 90 01/09/18 04:03 100 65 01/09/18 04:00 65 01/09/18 04:00 90 01/09/18 04:00 97.9 90 18 130/62 (84) 100 01/09/18 02:00 90 01/09/18 00:38 100 70 01/09/18 00:00 87 01/09/18 00:00 98.9 87 19 123/58 (79) 100 01/09/18 00:00 70 01/08/18 22:00 88 01/08/18 20:03 98 70 01/08/18 20:00 84 01/08/18 20:00 98.1 84 18 117/59 (78) 98 01/08/18 20:00 70 01/08/18 18:00 86 01/08/18 17:14 98.0 89 23 114/56 100 01/08/18 16:30 97.9 87 18 119/56 100 01/08/18 16:00 70 01/08/18 16:00 90 01/08/18 16:00 97.9 87 18 114/56 (75) 100 01/08/18 15:44 100 70 01/08/18 14:30 98.1 86 18 112/59 100 01/08/18 14:00 86 -: 01/08/18 2100 01/09/18 0615 Physical Exam General Appearance: Well Developed, Well Nourished Neck Neck Exam: Neck Supple Pulmonary Resp Exam: Clear Bilaterally, Diminished Breath Sounds Cardiology CV Exam: Regular, Normal Sinus Rhythm Gastrointestinal/Abdomen GI Exam: Soft, Distended Extremeties Extremities Exam: Moderate Edema Assessment/Plan Problem List: (1) Acute renal failure ICD Codes: N17.9 - Acute kidney failure, unspecified Plan: Patient has liver cirrhosis and possible hepatorenal syndrome is considered, he did receive contrast studies as well, His creatinine declined renal failure Hb 6.4 off Lasix Nonoliguric Potassium low replace Generalized edema Continue to monitor CMP Liver and Kidney function as Cr declined 2.57 decompressive colonoscopy done Avoid nephrotoxins or dye studies (2) Upper GI bleed ICD Codes: K92.2 - Gastrointestinal hemorrhage, unspecified Plan: GI is following (3) Alcoholic cirrhosis ICD Codes: K70.30 - Alcoholic cirrhosis of liver without ascites Plan: Followed by GI (4) Coagulopathy ICD Codes: D68.9 - Coagulation defect, unspecified Plan: Patient has received blood product, FFP and PRBCs (5) Ascites ICD Codes: R18.8 - Other ascites Plan: Due to alcoholic cirrhosis (6) Hyponatremia ICD Codes: E87.1 - Hypo-osmolality and hyponatremia Plan: Sodium has improved Problem Qualifiers (1) Acute renal failure: Qualified Codes: N17.9 - Acute kidney failure, unspecified (2) Alcoholic cirrhosis: Qualified Codes: K70.31 - Alcoholic cirrhosis of liver with ascites (3) Ascites: Qualified Codes: K70.31 - Alcoholic cirrhosis of liver with ascites Ciro Elder MD January 09, 2018 14:00
--- NOTE | 2018-01-09 14:56 | HHI.HCPN ---
Reason for visit a. To assist with evaluation and management of symptoms including: dyspnea, pain. b. To assist medical decision maker(s) with: better understanding of current medical conditions; weighing benefits/burdens of medical treatment options; making medical treatment decisions. . Subjective/Interval History Patient seen to follow-up today on comfort, updates to legal decision maker. Remains critically ill in ICU, on mech vent. Hgb 6.4/ hct 18.9, ordered for 1 U RBC today. BUN/creatinine not significantly changes 58/2.57. GI signed off, pt not candidate for EDG at this time. TF has been held. Cont on octreotide, pantoprazole, TPN. Propofol at 40mcgs/kg/min today. Cont to have large amt output from LLQ pigtail drain. Nursing reports when lightened he will open eyes, follow simple commands w extremities very weakly. Patient examined in room as Dr. Alvarado is completing visit/exam with patient and patient mother. Patient mother at bedside during my exam. He does appear to localize to pain on extremities slight facial grimace and very slight withdrawal on hands and feet with pain stimuli. No eye opening. Abdomen softer, less distended than yesterday during my visit. Met with mother at bedside. Provided update of current clinical conditions. Upon introduction of palliative service and purpose of my visit she becomes upset and voices frustration with hierarchy for decision-making. She tells me that during prior hospitalizations and other interactions his had never been involved. Gently explore with her [place] statutes for legal decision making, and that if patient is able to make his own decisions then we would not rely on the statutes and hierarchy however if patient incapacitated that is when we must follow the statutes in terms of decision-making. She indicates that she physically has been the one supporting him for several years and expresses frustration with why she would not be the appropriate legal decision maker, that it is "unfair" . Advise that with no documentation of surrogate/adv directive we are required to follow statutes. She also endorses that she wants no communications with his estranged , that she has already left voicemail for her and she refuses to talk to her. Supportive listening provided. Advised that as per my conversations with the patient's yesterday she does wish for his mother to remain involved in his care and decisions as much as she wants to be. Discussed with critical care, primary nurse. . Family/friend interactions Following exam and discussion with mother bedside call to Yuliya. Updated on current clinical condition, assessment, recent diagnostics. Review overall prognosis. Reviewed that in the coming days/week may have to make decisions regarding tracheostomy, PEG tube to continue ongoing aggressive interventions and treatments. All questions answered to the best of my ability. She endorses continuing with current aggressive, available treatments, monitoring patient's status in the coming days no decisions made yet regarding tracheostomy , PEG tube. She has palliative contact information. She would like daily updates during the week to assist with her decision-making, as she is not in the area and able to visit patient . Advance Directives Living Will: Never completed Health Care Surrogate: Never completed Durable Power of [employer]: Never completed Advance Directive Specifics Health Care Surrogate(s): Documented care wishes: No written advanced directives. . Objective Vital Signs Date Time Temp Pulse Resp B/P (MAP) Pulse Ox O2 Delivery O2 Flow Rate FiO2 01/09/18 12:00 50 01/09/18 12:00 98.0 86 18 106/55 (72) 99 01/09/18 11:48 99 50 01/09/18 09:31 98.4 90 18 122/56 100 01/09/18 09:18 100 50 01/09/18 08:00 98.2 93 19 132/43 (72) 100 01/09/18 08:00 50 01/09/18 06:00 90 01/09/18 04:03 100 65 01/09/18 04:00 65 01/09/18 04:00 90 01/09/18 04:00 97.9 90 18 130/62 (84) 100 01/09/18 02:00 90 01/09/18 00:38 100 70 01/09/18 00:00 87 01/09/18 00:00 98.9 87 19 123/58 (79) 100 01/09/18 00:00 70 01/08/18 22:00 88 01/08/18 20:03 98 70 01/08/18 20:00 84 01/08/18 20:00 98.1 84 18 117/59 (78) 98 01/08/18 20:00 70 01/08/18 18:00 86 01/08/18 17:14 98.0 89 23 114/56 100 01/08/18 16:30 97.9 87 18 119/56 100 01/08/18 16:00 70 01/08/18 16:00 90 01/08/18 16:00 97.9 87 18 114/56 (75) 100 01/08/18 15:44 100 70 Intake & Output 01/09/18 01/09/18 07:00 19:00 Intake Total 2771.7969 ml 50 ml Output Total 6475 ml Balance -3703.2031 ml 50 ml IV Total 2415.7969 ml Tube Feeding 0 ml FFP 216 ml Blood Product IV Normal Saline Flush 20 ml 50 ml Tube Irrigant 120 ml Output Urine Total 2200 ml Stool Total 1450 ml Drainage Total 2825 ml Physical Exam CONSTITUTIONAL/GENERAL: This is a critically ill, obese male, in no apparent distress. TUBES/LINES/DRAINS: ETT, Dobbhoff right nare, left jugular central line, PIV x 2 , abdominal pigtail catheter LLQ, wound drain bag LLQ, bilateral soft wrist restraints, Key, rectal tube, SCDs. SKIN: + jaundice. Ecchymoses on upper extremities. Skin warm/dry HEAD: Atraumatic. Normocephalic. EYES: Pupils equal and round and reactive. + scleral icterus, slight scleral edema. No injection or drainage. Fundi not examined. ENT: Unable to assess hearing, Nose without bleeding or purulent drainage. Throat difficult to visualize due to tubes. CARDIOVASCULAR: Regular rate and rhythm without murmurs. RESPIRATORY/CHEST: On mech vent, respirations even/unlabored via ETT> Breath sounds equal and diminished bilaterally. GASTROINTESTINAL: Abdomen protuberant, distended, RLQ pigtail drain in place, + dark bloody drainage. Tube feed infusing via NG tube. Bowel sounds intermittent. GENITOURINARY: Without palpable bladder distension. Key catheter in place dark orange/brown urine. MUSCULOSKELETAL: Lower extremities with pitting edema. Upper extremities with pitting. LYMPHATICS: No palpable cervical or supraclavicular adenopathy. NEUROLOGICAL: Does not open eyes to voice or exam, localizes to pain. PSYCHIATRIC: sedated. . Diagnostic Tests Laboratory Laboratory Tests Test 01/07/18 05:00 01/08/18 03:15 01/08/18 04:10 01/08/18 09:49 White Blood Count 8.4 TH/MM3 (4.0-11.0) 8.0 TH/MM3 (4.0-11.0) 9.0 TH/MM3 (4.0-11.0) Red Blood Count 2.62 MIL/MM3 (4.50-5.90) 1.49 MIL/MM3 (4.50-5.90) 1.50 MIL/MM3 (4.50-5.90) Hemoglobin 7.7 GM/DL (13.0-17.0) 4.5 GM/DL (13.0-17.0) 4.4 GM/DL (13.0-17.0) Hematocrit 22.8 % (39.0-51.0) 13.3 % (39.0-51.0) 13.4 % (39.0-51.0) Mean Corpuscular Volume 87.0 FL (80.0-100.0) 89.2 FL (80.0-100.0) 89.7 FL (80.0-100.0) Mean Corpuscular Hemoglobin 29.2 PG (27.0-34.0) 30.0 PG (27.0-34.0) 29.6 PG (27.0-34.0) Mean Corpuscular Hemoglobin Concent 33.6 % (32.0-36.0) 33.6 % (32.0-36.0) 33.0 % (32.0-36.0) Red Cell Distribution Width 26.5 % (11.6-17.2) 26.4 % (11.6-17.2) 27.0 % (11.6-17.2) Platelet Count 115 TH/MM3 (150-450) 86 TH/MM3 (150-450) 90 TH/MM3 (150-450) Mean Platelet Volume 7.3 FL (7.0-11.0) 7.6 FL (7.0-11.0) 7.7 FL (7.0-11.0) Neutrophils (%) (Auto) 78.4 % (16.0-70.0) 70.3 % (16.0-70.0) Lymphocytes (%) (Auto) 6.6 % (9.0-44.0) 19.8 % (9.0-44.0) Monocytes (%) (Auto) 11.3 % (0.0-8.0) 6.6 % (0.0-8.0) Eosinophils (%) (Auto) 2.1 % (0.0-4.0) 2.3 % (0.0-4.0) Basophils (%) (Auto) 1.6 % (0.0-2.0) 1.0 % (0.0-2.0) Neutrophils # (Auto) 6.6 TH/MM3 (1.8-7.7) 5.6 TH/MM3 (1.8-7.7) Lymphocytes # (Auto) 0.6 TH/MM3 (1.0-4.8) 1.6 TH/MM3 (1.0-4.8) Monocytes # (Auto) 0.9 TH/MM3 (0-0.9) 0.5 TH/MM3 (0-0.9) Eosinophils # (Auto) 0.2 TH/MM3 (0-0.4) 0.2 TH/MM3 (0-0.4) Basophils # (Auto) 0.1 TH/MM3 (0-0.2) 0.1 TH/MM3 (0-0.2) CBC Comment AUTO DIFF AUTO DIFF Differential Total Cells Counted 100 100 Neutrophils % (Manual) 64 % (16-70) 60 % (16-70) Band Neutrophils % 20 % (0-6) 15 % (0-6) Lymphocytes % 6 % (9-44) 10 % (9-44) Monocytes % 7 % (0-8) 6 % (0-8) Eosinophils % 3 % (0-4) 6 % (0-4) Neutrophils # (Manual) 7.1 TH/MM3 (1.8-7.7) 6.1 TH/MM3 (1.8-7.7) Differential Comment FINAL DIFF MANUAL FINAL DIFF MANUAL Platelet Estimate LOW (NORMAL) LOW (NORMAL) Platelet Morphology Comment NORMAL (NORMAL) NORMAL (NORMAL) Target Cells 1+ (NORMAL) Blood Urea Nitrogen 47 MG/DL (7-18) 55 MG/DL (7-18) Creatinine 2.67 MG/DL (0.60-1.30) 2.57 MG/DL (0.60-1.30) Random Glucose 111 MG/DL (74-106) 114 MG/DL (74-106) Total Protein 6.5 GM/DL (6.4-8.2) 5.0 GM/DL (6.4-8.2) Albumin 3.6 GM/DL (3.4-5.0) 3.0 GM/DL (3.4-5.0) Calcium Level 8.4 MG/DL (8.5-10.1) 8.2 MG/DL (8.5-10.1) Magnesium Level 2.3 MG/DL (1.5-2.5) 2.3 MG/DL (1.5-2.5) Alkaline Phosphatase 52 U/L (45-117) 36 U/L (45-117) Aspartate Amino Transf (AST/SGOT) 162 U/L (15-37) 200 U/L (15-37) Alanine Aminotransferase (ALT/SGPT) 50 U/L (12-78) 54 U/L (12-78) Total Bilirubin 14.1 MG/DL (0.2-1.0) 12.0 MG/DL (0.2-1.0) Sodium Level 143 MEQ/L (136-145) 146 MEQ/L (136-145) Potassium Level 3.0 MEQ/L (3.5-5.1) 3.6 MEQ/L (3.5-5.1) Chloride Level 103 MEQ/L (98-107) 108 MEQ/L (98-107) Carbon Dioxide Level 26.6 MEQ/L (21.0-32.0) 28.5 MEQ/L (21.0-32.0) Anion Gap 13 MEQ/L (5-15) 10 MEQ/L (5-15) Estimat Glomerular Filtration Rate 25 ML/MIN (>89) 27 ML/MIN (>89) Basophils % 2 % (0-2) Metamyelocytes 1 % (0-1) Nucleated Red Blood Cells 1 /100 WBC (0-0) Polychromasia 2.4 % (0.0-1.9) Basophilic Stippling FAINT (NORMAL) Prothrombin Time 15.8 SEC (9.8-11.6) Prothromb Time International Ratio 1.6 RATIO Activated Partial Thromboplast Time 36.6 SEC (24.3-30.1) Fibrinogen 153 mg/dL (227-377) Test 01/08/18 21:00 01/09/18 06:15 White Blood Count 11.1 TH/MM3 (4.0-11.0) Red Blood Count 2.13 MIL/MM3 (4.50-5.90) Hemoglobin 6.4 GM/DL (13.0-17.0) Hematocrit 18.9 % (39.0-51.0) Mean Corpuscular Volume 88.6 FL (80.0-100.0) Mean Corpuscular Hemoglobin 30.1 PG (27.0-34.0) Mean Corpuscular Hemoglobin Concent 33.9 % (32.0-36.0) Red Cell Distribution Width 18.8 % (11.6-17.2) Platelet Count 88 TH/MM3 (150-450) Mean Platelet Volume 7.8 FL (7.0-11.0) Neutrophils (%) (Auto) 77.5 % (16.0-70.0) Lymphocytes (%) (Auto) 11.3 % (9.0-44.0) Monocytes (%) (Auto) 6.8 % (0.0-8.0) Eosinophils (%) (Auto) 3.3 % (0.0-4.0) Basophils (%) (Auto) 1.1 % (0.0-2.0) Neutrophils # (Auto) 8.6 TH/MM3 (1.8-7.7) Lymphocytes # (Auto) 1.3 TH/MM3 (1.0-4.8) Monocytes # (Auto) 0.8 TH/MM3 (0-0.9) Eosinophils # (Auto) 0.4 TH/MM3 (0-0.4) Basophils # (Auto) 0.1 TH/MM3 (0-0.2) CBC Comment AUTO DIFF Differential Comment AUTO DIFF CONFIRMED Platelet Estimate LOW (NORMAL) Platelet Morphology Comment NORMAL (NORMAL) Prothrombin Time 14.0 SEC (9.8-11.6) Prothromb Time International Ratio 1.4 RATIO Activated Partial Thromboplast Time 35.9 SEC (24.3-30.1) Blood Urea Nitrogen 58 MG/DL (7-18) Creatinine 2.57 MG/DL (0.60-1.30) Random Glucose 129 MG/DL (74-106) Total Protein 6.1 GM/DL (6.4-8.2) Albumin 3.6 GM/DL (3.4-5.0) Calcium Level 9.0 MG/DL (8.5-10.1) Phosphorus Level 3.3 MG/DL (2.5-4.9) Magnesium Level 2.3 MG/DL (1.5-2.5) Alkaline Phosphatase 52 U/L (45-117) Aspartate Amino Transf (AST/SGOT) 210 U/L (15-37) Alanine Aminotransferase (ALT/SGPT) 68 U/L (12-78) Lactate Dehydrogenase 168 U/L (87-241) Total Bilirubin 16.3 MG/DL (0.2-1.0) Sodium Level 146 MEQ/L (136-145) Potassium Level 3.4 MEQ/L (3.5-5.1) Chloride Level 108 MEQ/L (98-107) Carbon Dioxide Level 26.2 MEQ/L (21.0-32.0) Anion Gap 12 MEQ/L (5-15) Estimat Glomerular Filtration Rate 27 ML/MIN (>89) Lactic Acid Level 2.1 mmol/L (0.4-2.0) Ammonia LESS THAN 10 MCMOL/L Total Creatine Kinase 41 U/L (39-308) Amylase Level 68 U/L (25-115) Lipase 421 U/L (73-393) Result Diagram: 01/08/18 2100 01/09/18614 Microbiology Microbiology Date/Time Source Procedure Growth Status 01/02/18 08:38 Blood Peripheral Aerobic Blood Culture - Final NO GROWTH IN 5 DAYS Complete 01/02/18 08:38 Blood Peripheral Anaerobic Blood Culture - Final NO GROWTH IN 5 DAYS Complete 01/05/18 12:15 Fluid Peritoneal Fluid Gram Stain - Final Complete 01/05/18 12:15 Body Fluid Culture - Final Klebsiella Oxytoca Complete 01/05/18 09:50 Sputum Endotracheal Gram Stain - Final Complete 01/05/18 09:50 Sputum Endotracheal Sputum Culture - Final RARE GROWTH NORMAL RESPIRATORY AISHWARYA Complete 12/30/17 08:45 Urine Catheterized Urine Urine Culture - Final NO GROWTH IN 48 HOURS. Complete Imaging Last Impressions Chest X-Ray 01/09/18599 Signed Impressions: CONCLUSION: 1. Left lung base opacity may be pleural effusion and/or consolidation. 2. Pulmonary edema. Abdomen X-Ray 01/03/18599 Signed Impressions: CONCLUSION: No dilated bowel. Liver Ultrasound 12/31/17 0000 Signed Impressions: CONCLUSION: 1. Diffuse increased echogenicity throughout the liver suggestive of fatty inf iltration and/or hepatocellular disease. 2. Hepatomegaly. 3. Thickened gallbladder wall at 12 mm. No definite gallstones are seen. As ca n be seen with chronic gallbladder disease. Aorta CTA 12/28/17 0000 Signed Impressions: Service Date/Time: Thursday, December 28, 2017 21:00 - CONCLUSION: 1. Normal thoracic and abdominal aorta. No dissection/aneurysm seen. 2. Bibasilar consolidation and patchy densities in the upper lobes. 3. Hepatic steatosis with possible cirrhosis and moderate abdominal ascites. 4. Cholelithiasis. Aldair Francis MD Abdomen/Pelvis CT 12/27/171921 Signed Impressions: Service Date/Time: Wednesday, December 27, 2017 21:00 - CONCLUSION: 1. Diffusely abnormal liver likely secondary to hepatic steatosis and possible changes of cirrhosis. 2. Splenomegaly. This could be secondary to portal hypertension. 3. Moderate ascites. 4. Calcified gallstone. Stefan Grier MD Gall Bladder Ultrasound 12/27/17 0000 Signed Impressions: Service Date/Time: Wednesday, December 27, 2017 21:16 - CONCLUSION: 1. Diffusely abnormal liver secondary to cirrhosis and hepatic steatosis. 2. Gallbladder wall thickening. This is nonspecific. This can be seen with hepatic disease. It also can be seen with cholecystitis in the correct clinical situation. Gallstones were not demonstrated on the ultrasound examination but are clearly present on the CT examination. Stefan Grier MD Assessment and Plan Disease Oriented Problem List: (1) Probable sepsis (2) Abnormal INR (3) Alcoholic cirrhosis (4) Hyponatremia (5) Ascites (6) Acute renal failure (7) Upper GI bleed (8) Coagulopathy (9) Anemia requiring transfusions (10) Transaminitis (11) Hyperbilirubinemia Symptom Scale: (1) Pain 0-10 Scale: Unable to quantify (2) Dyspnea 0-10 Scale: Unable to quantify Pertinent Non-Medical Issues Psychosocial:Lives with his mother, Debo. Legally to estranged , Yuliya (lives in [place]). No children. Spiritual: Denominational agustina. [employer] Operator requested. Legal:Patient is not capacitated to make his own health care decisions, uncertain if he will regain capacity. Mr. Cedillo has never completed written advanced directives. According to [place] Statues, medical proxy decision maker would fall to patient's spouse, [employer] resulted, Yuliya located Yuliya wishes to serve as legal proxy, though she does wish to involve pt Mother Debo in care/decisions, if Debo wishes to remain involved. Ethical issues impacting care: No known concerns at this time. . Important Contacts PROXY Yuliya Henderson, : [phone] (cell) Debo Henderson, mother: [phone] (cell), (home) . Prognosis Mr. 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 Overall prognosis is poor. . Code Status: No Code Plan * Patient is not capacitated to make his own health care decisions, uncertain if he will regain capacity. Mr. Cedillo has never completed written advanced directives. According to [place] Statues, medical proxy decision maker would fall to patient's spouse, no contact information. Google search conducted. [employer] resulted, Yuliya located and requests joint family meeting and medical update on 01/08/18 at 11am. Patient mother not present to participate in family meeting with patient today 01/08/18; patient Yuliya Henderson endorses she does wish to serve as healthcare proxy for this patient. Yuliya does also wish to involve patient mother with decision-making however at this time patient mother has expressed that she does not wish to speak with Yuliya. * CODE STATUS : DNR/NO CODE * GOALS: Goals remain aggressive, short of resuscitation. wishes to continue available treatments which may help patient. No decisions made yet regarding tracheostomy and PEG tube though these possibilities were introduced and have been reviewed with her. She would like to monitor conditions and status in the coming days before making further decisions. She is opening to ongoing conversations as clinical course evolves. She requests daily updates during the week to assist her with decision-making. * SYMPTOMS; pain: sedated on mech vent. No obvious signs of pain. Patient unresponsive. Dyspnea: on mech vent, sedated. No new medication recommendations at this time. * Palliative care will continue to follow throughout hospitalization to assist with clarification of medical treatment goals and symptom management as needed. . Time Spent Total Floor Time (mins): 35 (Chart review, PE, discussion with nursing, discussion with proxy, discussion with critical care) Attestation To help prompt me to consider important information that might be impacting today's encounter and assessment, information from prior notes written by myself or my colleagues may have been "brought forward" into today's note. My signature on this note, however, is an attestation that I personally performed the exam, history, and/or decision-making noted today, and, unless otherwise indicated, the interactions with patient, family, and staff as well as the review of records all occurred today. I also attest that the listed assessment and stated plan reflect my best clinical judgment today based on the combination of historical information, prior notes, and today's exam/ interactions. When time spent is documented, it refers only to time spent today by the signer, or if indicated, combined time spent today by collaborating physician/nurse practitioner. Glo Morgan January 09, 2018 14:56
[2018-01-09] MEDS: [UNRECOGNIZED DRUG - OTHER] IV-CENTRAL SCH ×9 (16:06)
[2018-01-09] MEDS: SODIUM ACETATE IV-CENTRAL SCH ×9 (16:06)
[2018-01-09] MEDS: SODIUM CHLORIDE IV-CENTRAL SCH ×9 (16:06)
[2018-01-09 18:42] LABS: MEAN CELL VOLUME 86.8 FL (80.0-100.0); MEAN CORPUSCULAR HEMOGLOBIN 29.6 PG (27.0-34.0); MEAN CORPUSCULAR HGB CONC 34.1 % (32.0-36.0); MEAN PLATELET VOLUME 7.6 FL (7.0-11.0); PLATELET COUNT 83 TH/MM3 (150-450); RED BLOOD COUNT 2.35 MIL/MM3 (4.50-5.90); RED CELL DISTRIBUTION WIDTH 19.5 % (11.6-17.2); WHITE BLOOD COUNT 12.3 TH/MM3 (4.0-11.0)
[2018-01-09 18:51] LABS: HEMATOCRIT 20.4 % (39.0-51.0); HEMOGLOBIN 6.9 GM/DL (13.0-17.0)
[2018-01-10] VITALS (18 sets, daily range): BP systolic 103–142; BP diastolic 53–66; PULSE 72–86; RESP 18; TEMP 97.7–98.2; O2SAT 98–100
[2018-01-10] MEDS: FUROSEMIDE INJ 100 MG in SODIUM CHLORIDE 0.9% INJ 90 ML IV SCH ×2 (02:18→16:56)
[2018-01-10] MEDS: PIPERACIL-TAZO 2.25 GM PREMIX 50 ML IV SCH ×4 (02:19→20:53)
[2018-01-10] MEDS: RESP: ALBUTEROL 2.5 MG/IPRATROPIUM 0.5 MG NEB (SCH) NEB ×6 (02:58→23:24)
[2018-01-10] MEDS: PROPOFOL 1000 MG/100 ML INJ 100 ML IV PRN ×7 (03:16→21:34)
[2018-01-10] MEDS: INSULIN NovoLIN REGULAR SUPPLEMENTAL SCALE SQ SCH ×6 (04:00→20:00)
[2018-01-10] MEDS: CHLORHEXIDINE GLUCONATE 2 % 1 PACK (2 CLOTHS) TOP SCH (04:00)
[2018-01-10] MEDS: OCTREOTIDE INJ 500 MCG in SODIUM CHLORID 0.9% 500 ML INJ 499.5 ML IV SCH (05:03)
[2018-01-10] MEDS: METOCLOPRAMIDE HCL 10 MG/2 ML VIAL IV PUSH SCH ×3 (05:37→21:09)
[2018-01-10] MEDS: PENTOXIFYLLINE 400 MG CONTROLLED RELEASE TAB PO SCH ×3 (05:37→21:09)
[2018-01-10] MEDS: ARTIFICIAL TEARS OPTH SOLN 15 ML BTL EACH EYE SCH ×3 (06:11→23:00)
[2018-01-10 06:22] LABS: AUTOMATED NEUTROPHIL # 9.3 TH/MM3 (1.8-7.7); BASOPHIL # 0.2 TH/MM3 (0-0.2); BASOPHIL % 1.5 % (0.0-2.0); EOSINOPHIL # 0.4 TH/MM3 (0-0.4); EOSINOPHIL % 3.2 % (0.0-4.0); HEMATOCRIT 24.5 % (39.0-51.0); HEMOGLOBIN 8.4 GM/DL (13.0-17.0); LYMPH % 13.7 % (9.0-44.0); LYMPHOCYTE # 1.7 TH/MM3 (1.0-4.8); MEAN CELL VOLUME 85.6 FL (80.0-100.0); MEAN CORPUSCULAR HEMOGLOBIN 29.4 PG (27.0-34.0); MEAN CORPUSCULAR HGB CONC 34.4 % (32.0-36.0); MEAN PLATELET VOLUME 7.7 FL (7.0-11.0); MONO % 7.4 % (0.0-8.0); MONOCYTE # 0.9 TH/MM3 (0-0.9); NEUT % 74.2 % (16.0-70.0); PLATELET COUNT 83 TH/MM3 (150-450); RED BLOOD COUNT 2.86 MIL/MM3 (4.50-5.90); RED CELL DISTRIBUTION WIDTH 18.3 % (11.6-17.2); WHITE BLOOD COUNT 12.5 TH/MM3 (4.0-11.0)
[2018-01-10 06:44] LABS: ALBUMIN 3.3 GM/DL (3.4-5.0); AST (GOT) 192 U/L (15-37); BICARBONATE 27.4 MEQ/L (21.0-32.0); BLOOD UREA NITROGEN 61 MG/DL (7-18); CALCIUM 9.3 MG/DL (8.5-10.1); CHLORIDE 108 MEQ/L (98-107); CREATININE 2.42 MG/DL (0.60-1.30); GLOMERULAR FILTRATION RATE 29 ML/MIN (>89); GLUCOSE,RANDOM 111 MG/DL (74-106); MAGNESIUM 2.2 MG/DL (1.5-2.5); SODIUM (NA) 148 MEQ/L (136-145)
[2018-01-10 06:45] LABS: ALT (GPT) 71 U/L (12-78); PHOSPHORUS 3.5 MG/DL (2.5-4.9)
[2018-01-10 06:48] LABS: ALKALINE PHOSPHATASE 61 U/L (45-117); TOTAL BILIRUBIN ADULT 16.5 MG/DL (0.2-1.0)
[2018-01-10 07:14] LABS: INTERNATIONAL NORMALIZED RATIO 1.4 RATIO
[2018-01-10 07:15] LABS: PROTHROMBIN TIME - PATIENT 13.7 SEC (9.8-11.6)
[2018-01-10] MEDS: CHLORHEXIDINE 0.12% (ORAL KIT) 15 ML CUP MT SCH ×2 (08:59→21:07)
[2018-01-10] MEDS: ALBUMIN 25% INJ 50 ML IV SCH ×2 (09:00→21:07)
[2018-01-10] MEDS: LACTULOSE SYRUP 20 GM/30 ML CUP PO SCH ×4 (09:00→21:08)
[2018-01-10] MEDS: THIAMINE INJ 100 MG in SODIUM CHLORIDE 0.9% INJ 100 ML IV SCH (09:00)
[2018-01-10] MEDS: SODIUM CHLORIDE 0.9% FLUSH 10 ML FLUSH IV FLUSH SCH ×3 (09:00→21:00)
[2018-01-10] MEDS: PHYTONADIONE 5 MG/SWFI 5 ML ORAL SYR PO SCH (09:01)
[2018-01-10] MEDS: PANTOPRAZOLE INJ 80 MG in SODIUM CHLORIDE 0.9% INJ 100 ML IV SCH ×4 (09:02→20:01)
--- NOTE | 2018-01-10 09:02 | HHI.CCPN ---
Subjective Remarks/Hospital Course Patient is a 52-year-old male with history of alcohol dependence, on chronic Coumadin for "abdominal vein thrombosis", history of hypertension who presented to the emergency department with complaints of increasing jaundice, increasing abdominal girth and vomiting jade blood multiple times over the last 2 days. Patient admits to being a heavy drinker he drinks about 1.75 L bottle hard liquor every 2 days. ER workup showed patient had a hemoglobin of 8.1, INR was 15.7. PTT 156.1, white count of 13.6 with 10% bands. Also sodium was noted to be 119, AST 439 ALT 115 and bilirubin of 7.6. A stat CT abdomen pelvis showed moderate ascites, probable cirrhosis and hepatic steatosis, splenomegaly, and gallstones. Patient had been ordered to receive 2 units of PRBC, and total 4 units of FFP. INR, Hb will be rechecked after this and additional FFP will be given accordingly. 10 mg vitamin K also ordered. Unfortunately hospital is out of [facility]. I evaluated the patient in the emergency department. He initially had an alcohol level of 135. At the time of my exam he is in moderate distress appears to be slightly tremulous. I have initiated CIWA protocol. I will also start its Rocephin for SBP prophylaxis. Patient had been started on IV Protonix infusion and octreotide which will be continued. Patient clinically also appears to have at least moderate ascites but I am unable to perform paracentesis due to elevated INR. 12/28: Currently resting in bed complaining of abdominal pain. Short of breath and tachypnea. Complaining of nausea currently. Remains on nasal cannula. Patient does not desire his mother's to have knowledge about his alcohol use. 12/29: Afebrile. Remains intubated post EGD yesterday due to worsening hypoxia. Currently on PSV trial 26/05 at 40%. Remains on dexmedetomidine drip and attempt to wean with alcohol use and likely progression to DTs. Banding of varices noted. Pentoxifylline 400 mg every 8 hours initiated with appropriate 12/30: Awake on dexmedetomidine drip at 1 mcg/kg/min. Following commands and attempting to write. Nods his head when states he feels the effects of alcohol withdrawals. Afebrile. Continues to leak from prior site of paracentesis. 12/31: Diminished urine output noted overnight. Increasing FiO2 requirement. Bladder pressures measured currently elevated around 25. Will place tube to suction and notify GI. Nephrology consult placed. Will need central line. 01/01: T-max 100. Currently 99. Meld score 34. Discriminant function is 34. Tamera alcohol scale score 7. Arousable the ventilator. FiO2 increased to 40- 60% overnight. 350 cc from NG tube overnight. 01/02: T-max 99.8. No bowel movement overnight. Abdomen remains distended. More ascites output from left lower quadrant previous paracentesis site. Arousable on the ventilator and follows commands on sedation vacation. Remains on PEEP of 12. FiO2 60%. 01/03: Patient remains intubated sedated very critical. FiO2 had to be increased to 70%. I have increase PEEP from 12-14. Chest x-ray remains unchanged. T-max 100.5. Urine output 1.3 L. BUN 42 creatinine 3.5 hemoglobin 7.4. Bedside ultrasound shows at least moderate ascites. Plan for thoracentesis for fluid removal and also will help with vent dynamic. 01/04: Persistent problems with oxygenation related to diffuse basilar atelectasis. Patient converted to airway pressure release ventilation this morning. Caloric intake probably on the high side in view of propofol infusion. Will reduce TPN to 60 cc/h. Enteral feedings at trickle rate. 01/05: Patient placed on APRV mode 01/04 with T-hi 5 sec Pres hi 30, with release volumes around 800 cc. Good oxygen saturation 30% FiO2. X-ray shows improvement in bilateral consolidation persistent left lower lobe infiltrate. Urine output 1.5 L also 1.5 L out from left paracentesis site. Transfuse 1 U PRBC 01/06: Remains critically ill but making some progress. Reduce PHigh to 26, T high to 4.5, if tolerated well, attempt to switch to PC/AC with PEEP 18-20 and rita iTime. Urine output adequate 2.3 L in 24 hours. Paracentesis site draining approximately 1.4 L despite paracentesis and removal of 3.5 L yesterday. Increase Lasix to 60 mg IV q6hr, Creat improved to 3.29 01/07: Oxygenation modestly improved with very aggressive mean airway pressures , continue PEEP 1820. Abdominal girth and ascites have conspired to reduce functional residual capacity. Now a permanent peritoneal drain is in place and we will attempt to make some progress with gas exchange. Between the intractable ascites, morbid obesity, and respiratory failure it will be very difficult to remove this patient from positive pressure ventilation. 01/08: ET tube has migrated above the vocal cords. Directly visualized with glide scope after receiving 40 mg etomidate. Cuff was deflated several times and advanced with adequate tidal volumes post advancement. Follow-up chest x- ray revealed adequate placement of ET tube. Remains on furosemide will change to drip today. 01/09: Afebrile. FiO2 down to 65%. Continues with profuse drainage from pigtail site. Not tolerating tube feeds. Hemoglobin 6.4 units PRBCs. Will transfuse 1 unit today. Subjective 01/10: FiO2 down to 40%. PEEP decreased to 12. Arousable on propofol and fentanyl drips and able to follow commands. Transfuse 1 additional unit PRBCs overnight hemoglobin currently 8.4. Objective Vital Signs Date Time Temp Pulse Resp B/P (MAP) Pulse Ox O2 Delivery O2 Flow Rate FiO2 01/10/18 07:26 99 40 01/10/18 06:00 80 01/10/18 04:00 97.7 18 114/53 (73) 01/09/18 16:30 Ventilator Intake and Output 01/10/18 01/10/18 01/11/18 08:00 16:00 00:00 Intake Total 1520 ml Output Total 2560 ml Balance -1040 ml Result Diagram: 01/10/18 0550 01/10/18 0550 Other Results Microbiology Date/Time Source Procedure Growth Status 01/02/18 08:38 Blood Peripheral Aerobic Blood Culture - Final NO GROWTH IN 5 DAYS Complete 01/02/18 08:38 Blood Peripheral Anaerobic Blood Culture - Final NO GROWTH IN 5 DAYS Complete 01/05/18 12:15 Fluid Peritoneal Fluid Gram Stain - Final Complete 01/05/18 12:15 Body Fluid Culture - Final Klebsiella Oxytoca Complete 01/05/18 09:50 Sputum Endotracheal Gram Stain - Final Complete 01/05/18 09:50 Sputum Endotracheal Sputum Culture - Final RARE GROWTH NORMAL RESPIRATORY AISHWARYA Complete 12/30/17 08:45 Urine Catheterized Urine Urine Culture - Final NO GROWTH IN 48 HOURS. Complete Imaging Last Impressions Chest X-Ray 01/09/18 0600 Signed Impressions: CONCLUSION: 1. Left lung base opacity may be pleural effusion and/or consolidation. 2. Pulmonary edema. Abdomen X-Ray 01/03/18 0600 Signed Impressions: CONCLUSION: No dilated bowel. Liver Ultrasound 12/31/17 0000 Signed Impressions: CONCLUSION: 1. Diffuse increased echogenicity throughout the liver suggestive of fatty inf iltration and/or hepatocellular disease. 2. Hepatomegaly. 3. Thickened gallbladder wall at 12 mm. No definite gallstones are seen. As ca n be seen with chronic gallbladder disease. Aorta CTA 12/28/17 Signed Impressions: Service Date/Time: Thursday, December 28, 2017 21:00 - CONCLUSION: 1. Normal thoracic and abdominal aorta. No dissection/aneurysm seen. 2. Bibasilar consolidation and patchy densities in the upper lobes. 3. Hepatic steatosis with possible cirrhosis and moderate abdominal ascites. 4. Cholelithiasis. Aldair Francis MD Abdomen/Pelvis CT 12/27/[id number] Signed Impressions: Service Date/Time: Wednesday, December 27, 2017 21:00 - CONCLUSION: 1. Diffusely abnormal liver likely secondary to hepatic steatosis and possible changes of cirrhosis. 2. Splenomegaly. This could be secondary to portal hypertension. 3. Moderate ascites. 4. Calcified gallstone. Stefan Grier MD Gall Bladder Ultrasound 12/27/17 Signed Impressions: Service Date/Time: Wednesday, December 27, 2017 21:16 - CONCLUSION: 1. Diffusely abnormal liver secondary to cirrhosis and hepatic steatosis. 2. Gallbladder wall thickening. This is nonspecific. This can be seen with hepatic disease. It also can be seen with cholecystitis in the correct clinical situation. Gallstones were not demonstrated on the ultrasound examination but are clearly present on the CT examination. Stefan Grier MD Procedures Paracentesis EGD Objective Remarks GENERAL: 52-year-old male lying in bed orotracheally intubated SKIN: Warm and dry. Jaundiced HEAD: Atraumatic. Normocephalic. EYES: Pupils equal and round about 3 millimeters, positive for conjunctival icterus. ENT: No nasal bleeding or discharge. Mucous membranes dry and pink. Orotracheally intubated NECK: Trachea midline. Cannot appreciate JVD due to body habitus. Left IJ is clean dry and intact CARDIOVASCULAR: Regular rate and rhythm. S1, S2. No S4. Without murmur RESPIRATORY:Breath sounds equal bilaterally, but reduced in bases. GASTROINTESTINAL: Abdomen distended abdomen nontender obese. There is drainage from bilateral flanks, previous paracentesis sites. Peritoneal drain in place now. MUSCULOSKELETAL: Extremities -bilateral lower extreme 1+ pitting edema NEUROLOGICAL: Sedated but localizes to pain. No obvious cranial nerve deficits. Motor grossly within normal limits. Urinary Catheter: Yes Assessment to: Continue Key insert reason: ICU Pt Getting Diuretics Vascular Central Line Catheter: Yes Assessment to: Continue Date of Insertion: December 31, 2017 Line: Central Venous Catheter Side: Left Location: Internal, Jugular A/P Assessment and Plan NEURO/PSYCH: Alcohol withdrawal Alcohol dependence On propofol drip 30 micrograms per kilogram per minute for sedation while intubated Previously on CIWA protocol with Lorazepam. DC scheduled lorazepam Supplement thiamine, folic acid and MVI with vitamin bag 3 days and switch to IV thiamine on 12/31. Continue while n.p.o. Alcohol cessation encouraged RESP: Acute hypoxemic respiratory failure Likely OHS, STAS PRVC 18/550/1.2//65 Ventilator bundle. Albuterol/ipratropium aerosols every 4 hours, albuterol aerosols every 2 hours as needed dyspnea Chest x-ray in 01/09-a mild pulmonary edema Actively diuresing with furosemide drip at 5 mg an hour CV: History of hypertension -Holding amlodipine 5 mg due to GI bleed and Spironolactone 50 mg p.o. daily -Systolic hypertension. As needed labetalol, Nitropaste and nicardipine drip to maintain systolic blood pressure less than 170 -Diuresis with furosemide per nephrology. Currently on furosemide drip at 5 mg an hour GI: Upper GI bleed secondary to esophageal varices Ascites/abdominal Liver cirrhosis/hepatic steatosis Cholelithiasis Elevated lipase Elevated ammonia Hypoalbuminemia EGD 12/28 revealed -esophageal varices/nipple midesophagus with 3 bands noted. Portal gastropathy. Hiatal hernia. Repeat EGD per GI Dobbhoff tube now on trickle feeds. TPN at 50 mL Pentoxifylline 400 mg every 8 hours. Continue pantoprazole infusion at 8 mg an hour, octreotide infusion at 25 mcg/ hr. Status post paracentesis 12/28-3 L. repeat paracentesis with 3.5L removed CT abdomen/pelvis revealed no sequelae of pancreatitis. CT aorta revealed no signs of dissection or leakage. Lactulose 30 every 6 hours, docusate sodium liquid 100 mg twice daily, senna 8.8 mg twice daily and polyethylene glycol 17 g twice daily. Continue metoclopramide 5 every 8. Having BM MELD score in a.m. 01/09 - FEN//Endo: Hypocalcemia Hypernatremia Hypopotassemia -Monitor renal function closely. Sliding scale insulin Accu-Cheks with NovoLog/low regimen every 6 hours to maintain euglycemia 10 units insulin in TPN Decreased sodium chloride and increase potassium chloride in TPN see orders ID: Probable sepsis Noted staph epi blood culture 12/31+ probable contamination Possible SBP -Klebsiella oxycota 01/07 Linezolid and piperacillin/tazobactam renally dosed Repeat sputum cx 01/05 growth Pertinent cultures 01/07 -peritoneal fluid -Klebsiella oxycota 12/31 -blood cultures 1 out of 4 staph epi. 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 Hb 6.9 INR 1.5 today. s/p 1 unit of PRBC and transfuse 3 units PRBCs 01/08. 2 unit PRBCs 01/09 -Serially monitor INR, phytonadione 5 mg given 12/31 -Hemoglobin level slowly trending downward RENAL: Acute kidney injury Possible hepatorenal syndrome Possible contrast nephropathy, vs HRS. Urine sodium 11. Urine creatinine elevated. Negative urine eosinophils. No hydronephrosis on CAT scan. Nephrology Dr. Elder. Furosemide 10 mg an hour with albumin 25 g every 12 hours No hydronephrosis PROPH: -Bilateral lower extremity SCDs. IV pantoprazole infusion. Chemical DVT prophylaxis is contraindicated at this time LINES: -Utilize peripheral IVs, left IJ CVL day placed 12/31 Level 3 follow-up Constantine Alvarado MD Jan 10, 2018 09:02
[2018-01-10] MEDS ORDERED: POTASSIUM CHLOR 20 MEQ PREMIX 100 ML IV ONE (09:15)
[2018-01-10 10:38] LABS: BANDS 26 % (0-6); BASOPHILS 3 % (0-2); LYMPHOCYTES 9 % (9-44); MONOCYTES 6 % (0-8); POLYS (SEG NEUTROPHILS) 54 % (16-70)
[2018-01-10] MEDS ORDERED: POTASSIUM CHLORIDE INJ 30 MEQ, SODIUM CHLORIDE 23.4% INJ 38.5 MEQ in WATER STERILE FOR ... IV SCH (11:00)
--- NOTE | 2018-01-10 12:18 | HHI.HCPN ---
Reason for visit a. To assist with evaluation and management of symptoms including: dyspnea, pain. b. To assist medical decision maker(s) with: better understanding of current medical conditions; weighing benefits/burdens of medical treatment options; making medical treatment decisions. . Subjective/Interval History Patient seen to follow-up today on comfort, updates to legal decision maker. Remains critically ill in ICU, on mech vent. Hgb 6.9/hct 20.4 yesterday evening , transfused 2 U RBC in the evening/overnight. PLT 83. BUN/creatinine not significantly changes 61/2.42. Bilirubin remains elevated 16.5. TF remains off. Cont on octreotide, pantoprazole, TPN. Propofol at 40mcgs/kg/min . Nursing reports when lightened he will open eyes, follow simple commands w extremities very weakly. Patient examined in room as Dr. Alvarado is completing visit/exam, he has made some ventilator adjustments. Discussed with critical care, primary nurse. . Family/friend interactions Call to , nursing indicates she had called earlier today requesting update. Updated on current condition, assessment, treatments in place. Review with possible trajectory going forward, overall very guarded/poor prognosis for significant recovery. Further explore that to continue aggressive support and interventions patient would be expected to require tracheostomy, PEG tube, would want to proceed with this next week if patient stable enough to do so. She asks me what patient mother has been indicating that he would want, she feels that the patient would not want to proceed on artificial measures if he would not have a very good chance at recovering fully and possibly obtaining a liver transplant if needed in the future. Advised that we cannot be 100% certain of how much recovery he would make or if he would even ever become eligible for a liver transplant. She feels he would NOT WANT to have a tracheostomy and PEG tube but instead would want comfort measures only. She would like patient's mother's support with his decisions as she feels she does know him well, but also feels his mother knows him very well. Alternatively explore that if a patient did NOT desire ongoing aggressive interventions and they would have the option to transition to comfort focus, and artificial measures could be removed, hospice could be enlisted, and patient would be made comfortable for whatever time he had left. She indicates understanding, that she has gone through this type of process with another close family member. Her connection got disconnected I attempted to reach her again and it went right to voicemail. I left my contact information. . Advance Directives Living Will: Never completed Health Care Surrogate: Never completed Durable Power of Substitute Bus Driver: Never completed Advance Directive Specifics Health Care Surrogate(s): Documented care wishes: No written advanced directives. . Objective Vital Signs Date Time Temp Pulse Resp B/P (MAP) Pulse Ox O2 Delivery O2 Flow Rate FiO2 01/10/18 11:44 98 40 01/10/18 07:26 99 40 01/10/18 06:00 80 01/10/18 04:13 100 40 01/10/18 04:00 97.7 80 18 114/53 (73) 100 01/10/18 04:00 80 01/10/18 04:00 40 01/10/18 02:00 86 01/10/18 00:00 86 01/10/18 00:00 97.9 86 18 142/66 (91) 100 01/10/18 00:00 40 01/09/18 23:33 99 40 01/09/18 22:56 97.6 88 18 136/66 99 01/09/18 22:00 86 01/09/18 21:00 97.5 86 18 121/62 99 01/09/18 20:42 97.5 86 18 112/56 100 01/09/18 20:00 88 01/09/18 20:00 97.5 88 18 112/56 (74) 100 01/09/18 20:00 40 01/09/18 19:53 100 40 01/09/18 16:30 100 40 01/09/18 16:30 100 Ventilator 40 01/09/18 16:00 98.0 98 18 104/54 (71) 94 01/09/18 16:00 50 01/09/18 12:00 50 01/09/18 12:00 98.0 86 18 106/55 (72) 99 Intake & Output 01/10/18 01/10/18 06:59 18:59 Intake Total 2620 ml 50 ml Output Total 2560 ml Balance 60 ml 50 ml IV Total 1050 ml 50 ml Packed Cells 1200 ml Blood Product IV Normal Saline Flush 250 ml Tube Irrigant 120 ml Output Urine Total 2200 ml Stool Total 200 ml Drainage Total 160 ml Physical Exam CONSTITUTIONAL/GENERAL: This is a critically ill, obese male, in no apparent distress. TUBES/LINES/DRAINS: ETT, Dobbhoff right nare, left jugular central line, PIV x 2 , abdominal pigtail catheter LLQ, wound drain bag LLQ, bilateral soft wrist restraints, Key, rectal tube, SCDs. SKIN: + jaundice. Ecchymoses on upper extremities. Skin warm/dry EYES: Pupils equal and round and reactive. + scleral icterus, slight scleral edema. No injection or drainage. Fundi not examined. ENT: Unable to assess hearing, Nose without bleeding or purulent drainage. Throat difficult to visualize due to tubes. CARDIOVASCULAR: Regular rate and rhythm without murmurs. RESPIRATORY/CHEST: On mech vent, respirations even/unlabored via ETT. Breath sounds equal and diminished bilaterally. GASTROINTESTINAL: Abdomen protuberant, distended, RLQ pigtail drain in place, + dark bloody drainage. NG tube clamped. Bowel sounds infrequent GENITOURINARY: Without palpable bladder distension. Key catheter in place dark orange/brown urine. MUSCULOSKELETAL: Lower extremities with pitting edema. Upper extremities with pitting edema NEUROLOGICAL: Does not open eyes to voice or exam, localizes/grimaces to pain. PSYCHIATRIC: sedated.no apparent anxiety/distress . Diagnostic Tests Laboratory Laboratory Tests Test 01/08/18 03:15 01/08/18 04:10 01/08/18 09:49 01/08/18 21:00 Blood Urea Nitrogen 55 MG/DL (7-18) Creatinine 2.57 MG/DL (0.60-1.30) Random Glucose 114 MG/DL (74-106) Total Protein 5.0 GM/DL (6.4-8.2) Albumin 3.0 GM/DL (3.4-5.0) Calcium Level 8.2 MG/DL (8.5-10.1) Magnesium Level 2.3 MG/DL (1.5-2.5) Alkaline Phosphatase 36 U/L (45-117) Aspartate Amino Transf (AST/SGOT) 200 U/L (15-37) Alanine Aminotransferase (ALT/SGPT) 54 U/L (12-78) Total Bilirubin 12.0 MG/DL (0.2-1.0) Sodium Level 146 MEQ/L (136-145) Potassium Level 3.6 MEQ/L (3.5-5.1) Chloride Level 108 MEQ/L (98-107) Carbon Dioxide Level 28.5 MEQ/L (21.0-32.0) Anion Gap 10 MEQ/L (5-15) Estimat Glomerular Filtration Rate 27 ML/MIN (>89) White Blood Count 8.0 TH/MM3 (4.0-11.0) 9.0 TH/MM3 (4.0-11.0) 11.1 TH/MM3 (4.0-11.0) Red Blood Count 1.49 MIL/MM3 (4.50-5.90) 1.50 MIL/MM3 (4.50-5.90) 2.13 MIL/MM3 (4.50-5.90) Hemoglobin 4.5 GM/DL (13.0-17.0) 4.4 GM/DL (13.0-17.0) 6.4 GM/DL (13.0-17.0) Hematocrit 13.3 % (39.0-51.0) 13.4 % (39.0-51.0) 18.9 % (39.0-51.0) Mean Corpuscular Volume 89.2 FL (80.0-100.0) 89.7 FL (80.0-100.0) 88.6 FL (80.0-100.0) Mean Corpuscular Hemoglobin 30.0 PG (27.0-34.0) 29.6 PG (27.0-34.0) 30.1 PG (27.0-34.0) Mean Corpuscular Hemoglobin Concent 33.6 % (32.0-36.0) 33.0 % (32.0-36.0) 33.9 % (32.0-36.0) Red Cell Distribution Width 26.4 % (11.6-17.2) 27.0 % (11.6-17.2) 18.8 % (11.6-17.2) Platelet Count 86 TH/MM3 (150-450) 90 TH/MM3 (150-450) 88 TH/MM3 (150-450) Mean Platelet Volume 7.6 FL (7.0-11.0) 7.7 FL (7.0-11.0) 7.8 FL (7.0-11.0) Neutrophils (%) (Auto) 70.3 % (16.0-70.0) 77.5 % (16.0-70.0) Lymphocytes (%) (Auto) 19.8 % (9.0-44.0) 11.3 % (9.0-44.0) Monocytes (%) (Auto) 6.6 % (0.0-8.0) 6.8 % (0.0-8.0) Eosinophils (%) (Auto) 2.3 % (0.0-4.0) 3.3 % (0.0-4.0) Basophils (%) (Auto) 1.0 % (0.0-2.0) 1.1 % (0.0-2.0) Neutrophils # (Auto) 5.6 TH/MM3 (1.8-7.7) 8.6 TH/MM3 (1.8-7.7) Lymphocytes # (Auto) 1.6 TH/MM3 (1.0-4.8) 1.3 TH/MM3 (1.0-4.8) Monocytes # (Auto) 0.5 TH/MM3 (0-0.9) 0.8 TH/MM3 (0-0.9) Eosinophils # (Auto) 0.2 TH/MM3 (0-0.4) 0.4 TH/MM3 (0-0.4) Basophils # (Auto) 0.1 TH/MM3 (0-0.2) 0.1 TH/MM3 (0-0.2) CBC Comment AUTO DIFF AUTO DIFF Differential Total Cells Counted 100 Neutrophils % (Manual) 60 % (16-70) Band Neutrophils % 15 % (0-6) Lymphocytes % 10 % (9-44) Monocytes % 6 % (0-8) Eosinophils % 6 % (0-4) Basophils % 2 % (0-2) Neutrophils # (Manual) 6.1 TH/MM3 (1.8-7.7) Metamyelocytes 1 % (0-1) Nucleated Red Blood Cells 1 /100 WBC (0-0) Differential Comment FINAL DIFF MANUAL AUTO DIFF CONFIRMED Platelet Estimate LOW (NORMAL) LOW (NORMAL) Platelet Morphology Comment NORMAL (NORMAL) NORMAL (NORMAL) Polychromasia 2.4 % (0.0-1.9) Basophilic Stippling FAINT (NORMAL) Prothrombin Time 15.8 SEC (9.8-11.6) 14.0 SEC (9.8-11.6) Prothromb Time International Ratio 1.6 RATIO 1.4 RATIO Activated Partial Thromboplast Time 36.6 SEC (24.3-30.1) 35.9 SEC (24.3-30.1) Fibrinogen 153 mg/dL (227-377) Test 01/09/18 06:15 01/09/18 18:00 01/10/18 05:50 Blood Urea Nitrogen 58 MG/DL (7-18) 61 MG/DL (7-18) Creatinine 2.57 MG/DL (0.60-1.30) 2.42 MG/DL (0.60-1.30) Random Glucose 129 MG/DL (74-106) 111 MG/DL (74-106) Total Protein 6.1 GM/DL (6.4-8.2) 6.0 GM/DL (6.4-8.2) Albumin 3.6 GM/DL (3.4-5.0) 3.3 GM/DL (3.4-5.0) Calcium Level 9.0 MG/DL (8.5-10.1) 9.3 MG/DL (8.5-10.1) Phosphorus Level 3.3 MG/DL (2.5-4.9) 3.5 MG/DL (2.5-4.9) Magnesium Level 2.3 MG/DL (1.5-2.5) 2.2 MG/DL (1.5-2.5) Alkaline Phosphatase 52 U/L (45-117) 61 U/L (45-117) Aspartate Amino Transf (AST/SGOT) 210 U/L (15-37) 192 U/L (15-37) Alanine Aminotransferase (ALT/SGPT) 68 U/L (12-78) 71 U/L (12-78) Lactate Dehydrogenase 168 U/L (87-241) Total Bilirubin 16.3 MG/DL (0.2-1.0) 16.5 MG/DL (0.2-1.0) Sodium Level 146 MEQ/L (136-145) 148 MEQ/L (136-145) Potassium Level 3.4 MEQ/L (3.5-5.1) 3.3 MEQ/L (3.5-5.1) Chloride Level 108 MEQ/L (98-107) 108 MEQ/L (98-107) Carbon Dioxide Level 26.2 MEQ/L (21.0-32.0) 27.4 MEQ/L (21.0-32.0) Anion Gap 12 MEQ/L (5-15) 13 MEQ/L (5-15) Estimat Glomerular Filtration Rate 27 ML/MIN (>89) 29 ML/MIN (>89) Lactic Acid Level 2.1 mmol/L (0.4-2.0) Ammonia LESS THAN 10 MCMOL/L Total Creatine Kinase 41 U/L (39-308) Amylase Level 68 U/L (25-115) Lipase 421 U/L (73-393) White Blood Count 12.3 TH/MM3 (4.0-11.0) 12.5 TH/MM3 (4.0-11.0) Red Blood Count 2.35 MIL/MM3 (4.50-5.90) 2.86 MIL/MM3 (4.50-5.90) Hemoglobin 6.9 GM/DL (13.0-17.0) 8.4 GM/DL (13.0-17.0) Hematocrit 20.4 % (39.0-51.0) 24.5 % (39.0-51.0) Mean Corpuscular Volume 86.8 FL (80.0-100.0) 85.6 FL (80.0-100.0) Mean Corpuscular Hemoglobin 29.6 PG (27.0-34.0) 29.4 PG (27.0-34.0) Mean Corpuscular Hemoglobin Concent 34.1 % (32.0-36.0) 34.4 % (32.0-36.0) Red Cell Distribution Width 19.5 % (11.6-17.2) 18.3 % (11.6-17.2) Platelet Count 83 TH/MM3 (150-450) 83 TH/MM3 (150-450) Mean Platelet Volume 7.6 FL (7.0-11.0) 7.7 FL (7.0-11.0) Neutrophils (%) (Auto) 74.2 % (16.0-70.0) Lymphocytes (%) (Auto) 13.7 % (9.0-44.0) Monocytes (%) (Auto) 7.4 % (0.0-8.0) Eosinophils (%) (Auto) 3.2 % (0.0-4.0) Basophils (%) (Auto) 1.5 % (0.0-2.0) Neutrophils # (Auto) 9.3 TH/MM3 (1.8-7.7) Lymphocytes # (Auto) 1.7 TH/MM3 (1.0-4.8) Monocytes # (Auto) 0.9 TH/MM3 (0-0.9) Eosinophils # (Auto) 0.4 TH/MM3 (0-0.4) Basophils # (Auto) 0.2 TH/MM3 (0-0.2) CBC Comment AUTO DIFF Differential Total Cells Counted 100 Neutrophils % (Manual) 54 % (16-70) Band Neutrophils % 26 % (0-6) Lymphocytes % 9 % (9-44) Monocytes % 6 % (0-8) Eosinophils % 2 % (0-4) Basophils % 3 % (0-2) Neutrophils # (Manual) 10.0 TH/MM3 (1.8-7.7) Differential Comment FINAL DIFF MANUAL Platelet Estimate LOW (NORMAL) Platelet Morphology Comment NORMAL (NORMAL) Prothrombin Time 13.7 SEC (9.8-11.6) Prothromb Time International Ratio 1.4 RATIO Activated Partial Thromboplast Time 33.4 SEC (24.3-30.1) Fibrinogen 253 mg/dL (227-377) Result Diagram: 01/10/18 0550 01/10/18 0550 Microbiology Microbiology Date/Time Source Procedure Growth Status 01/02/18 08:38 Blood Peripheral Aerobic Blood Culture - Final NO GROWTH IN 5 DAYS Complete 01/02/18 08:38 Blood Peripheral Anaerobic Blood Culture - Final NO GROWTH IN 5 DAYS Complete 01/05/18 12:15 Fluid Peritoneal Fluid Gram Stain - Final Complete 01/05/18 12:15 Body Fluid Culture - Final Klebsiella Oxytoca Complete 01/05/18 09:50 Sputum Endotracheal Gram Stain - Final Complete 01/05/18 09:50 Sputum Endotracheal Sputum Culture - Final RARE GROWTH NORMAL RESPIRATORY AISHWARYA Complete 12/30/17 08:45 Urine Catheterized Urine Urine Culture - Final NO GROWTH IN 48 HOURS. Complete Imaging Last Impressions Chest X-Ray 01/09/18 0600 Signed Impressions: CONCLUSION: 1. Left lung base opacity may be pleural effusion and/or consolidation. 2. Pulmonary edema. Abdomen X-Ray 01/03/18 0600 Signed Impressions: CONCLUSION: No dilated bowel. Liver Ultrasound 12/31/17 0000 Signed Impressions: CONCLUSION: 1. Diffuse increased echogenicity throughout the liver suggestive of fatty inf iltration and/or hepatocellular disease. 2. Hepatomegaly. 3. Thickened gallbladder wall at 12 mm. No definite gallstones are seen. As ca n be seen with chronic gallbladder disease. Aorta CTA 12/28/17 0000 Signed Impressions: Service Date/Time: Thursday, December 28, 2017 21:00 - CONCLUSION: 1. Normal thoracic and abdominal aorta. No dissection/aneurysm seen. 2. Bibasilar consolidation and patchy densities in the upper lobes. 3. Hepatic steatosis with possible cirrhosis and moderate abdominal ascites. 4. Cholelithiasis. Aldair Francis MD Abdomen/Pelvis CT [id number]/[id number] Signed Impressions: Service Date/Time: Wednesday, December 27, 2017 21:00 - CONCLUSION: 1. Diffusely abnormal liver likely secondary to hepatic steatosis and possible changes of cirrhosis. 2. Splenomegaly. This could be secondary to portal hypertension. 3. Moderate ascites. 4. Calcified gallstone. Stefan Grier MD Gall Bladder Ultrasound 12/27/17 0000 Signed Impressions: Service Date/Time: Wednesday, December 27, 2017 21:16 - CONCLUSION: 1. Diffusely abnormal liver secondary to cirrhosis and hepatic steatosis. 2. Gallbladder wall thickening. This is nonspecific. This can be seen with hepatic disease. It also can be seen with cholecystitis in the correct clinical situation. Gallstones were not demonstrated on the ultrasound examination but are clearly present on the CT examination. Stefan Grier MD Assessment and Plan Disease Oriented Problem List: (1) Probable sepsis (2) Abnormal INR (3) Alcoholic cirrhosis (4) Hyponatremia (5) Ascites (6) Acute renal failure (7) Upper GI bleed (8) Coagulopathy (9) Anemia requiring transfusions (10) Transaminitis (11) Hyperbilirubinemia Symptom Scale: (1) Pain 0-10 Scale: Unable to quantify (2) Dyspnea 0-10 Scale: Unable to quantify Pertinent Non-Medical Issues Psychosocial:Lives with his mother, Debo. Legally to estranged , Yuliya (lives in [place]). No children. Spiritual: Evangelical agustina. Circle Saw Operator requested. Legal:Patient is not capacitated to make his own health care decisions, uncertain if he will regain capacity. Mr. Cedillo has never completed written advanced directives. According to [place] Statues, medical proxy decision maker would fall to patient's spouse, [employer] resulted, Yuliya located Yuliya wishes to serve as legal proxy, though she does wish to involve pt Mother Debo in care/decisions, if Debo wishes to remain involved. Ethical issues impacting care: No known concerns at this time. . Important Contacts PROXY Yuliya Henderson, : [phone] (cell) Debo Henderson, mother: [phone] (cell), (home) . Prognosis Mr. 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 Overall prognosis is poor. . Code Status: No Code Plan * Patient is not capacitated to make his own health care decisions, uncertain if he will regain capacity. Mr. Cedillo has never completed written advanced directives. According to [place], medical proxy decision maker would fall to patient's spouse, no contact information. Google search conducted. [employer] resulted, Yuliya located and requests joint family meeting and medical update on 01/08/18 at 11am. Patient mother not present to participate in family meeting with patient today 01/08/18; patient Yuliya Henderson endorses she does wish to serve as healthcare proxy for this patient. Yuliya does also wish to involve patient mother with decision-making however at this time patient mother has expressed that she does not wish to speak with Yuliya. * CODE STATUS : DNR/NO CODE * GOALS: Goals remain aggressive, short of resuscitation. wishes to continue available treatments which may help patient. No decisions made yet regarding tracheostomy and PEG tube though these possibilities were discussed, and advised would be recommended for timeframe of next week. She would like to monitor conditions and status in the coming days, also hopes pt mother will give her some input before making further decisions. She has expressed the patient would not want to proceed with tracheostomy, PEG and other artificial measures if he did not have a very good chance of making a full recovery in the future. She is opening to ongoing conversations as clinical course evolves. * SYMPTOMS; pain: sedated on mech vent. No obvious signs of pain. Patient unresponsive. Dyspnea: on mech vent, sedated. No new medication recommendations at this time. * Palliative care will continue to follow throughout hospitalization to assist with clarification of medical treatment goals and symptom management as needed. . Time Spent Total Floor Time (mins): 25 (Chart review, PE, discussion with nursing, discussion with critical care, discussion with proxy) Attestation To help prompt me to consider important information that might be impacting today's encounter and assessment, information from prior notes written by myself or my colleagues may have been "brought forward" into today's note. My signature on this note, however, is an attestation that I personally performed the exam, history, and/or decision-making noted today, and, unless otherwise indicated, the interactions with patient, family, and staff as well as the review of records all occurred today. I also attest that the listed assessment and stated plan reflect my best clinical judgment today based on the combination of historical information, prior notes, and today's exam/ interactions. When time spent is documented, it refers only to time spent today by the signer, or if indicated, combined time spent today by collaborating physician/nurse practitioner. Glo Morgan Jan 10, 2018 12:18
[2018-01-10] MEDS: POTASSIUM CHLORIDE IV-CENTRAL SCH ×8 (15:31)
[2018-01-10] MEDS: [UNRECOGNIZED DRUG - OTHER] IV-CENTRAL SCH ×8 (15:31)
[2018-01-10] MEDS: SODIUM ACETATE IV-CENTRAL SCH ×8 (15:31)
--- NOTE | 2018-01-10 17:29 | HHI.NPPN ---
Subjective History of Present Illness 52-year-old male, Alcoholic hepatitis/cirrhosis received contrast study and acute renal failure Objective Data Data 01/10/18 01/11/18 19:00 07:00 Intake Total 1821 ml Balance 1821 ml IV Total 1821 ml Vital Signs Date Time Temp Pulse Resp B/P (MAP) Pulse Ox O2 Delivery O2 Flow Rate FiO2 01/10/18 16:00 40 01/10/18 16:00 79 01/10/18 16:00 98.2 79 18 103/56 (72) 99 01/10/18 15:19 98 40 01/10/18 14:00 78 01/10/18 12:00 75 01/10/18 12:00 40 01/10/18 12:00 97.9 75 18 109/55 (73) 98 01/10/18 11:44 98 40 01/10/18 10:00 83 01/10/18 08:00 82 01/10/18 08:00 98.0 82 18 116/56 (76) 99 01/10/18 08:00 40 01/10/18 07:26 99 40 01/10/18 06:00 80 01/10/18 04:13 100 40 01/10/18 04:00 97.7 80 18 114/53 (73) 100 01/10/18 04:00 80 01/10/18 04:00 40 01/10/18 02:00 86 01/10/18 00:00 86 01/10/18 00:00 97.9 86 18 142/66 (91) 100 01/10/18 00:00 40 01/09/18 23:33 99 40 01/09/18 22:56 97.6 88 18 136/66 99 01/09/18 22:00 86 01/09/18 21:00 97.5 86 18 121/62 99 01/09/18 20:42 97.5 86 18 112/56 100 01/09/18 20:00 88 01/09/18 20:00 97.5 88 18 112/56 (74) 100 01/09/18 20:00 40 01/09/18 19:53 100 40 -: 01/10/18 1600 01/10/18 1600 Physical Exam General Appearance: Well Developed, Well Nourished Neck Neck Exam: Neck Supple Pulmonary Resp Exam: Clear Bilaterally, Diminished Breath Sounds Cardiology CV Exam: Regular, Normal Sinus Rhythm Gastrointestinal/Abdomen GI Exam: Soft, Distended Extremeties Extremities Exam: Moderate Edema Assessment/Plan Problem List: (1) Acute renal failure ICD Codes: N17.9 - Acute kidney failure, unspecified Plan: Patient has liver cirrhosis and possible hepatorenal syndrome is considered, he did receive contrast studies as well, His creatinine declined renal failure Hb 8.5 UOP 4.2 L getting free water off Lasix Nonoliguric Potassium low replace Generalized edema Continue to monitor CMP Liver and Kidney function as Cr declined 2.4 decompressive colonoscopy done Avoid nephrotoxins or dye studies (2) Upper GI bleed ICD Codes: K92.2 - Gastrointestinal hemorrhage, unspecified Plan: GI is following (3) Alcoholic cirrhosis ICD Codes: K70.30 - Alcoholic cirrhosis of liver without ascites Plan: Followed by GI (4) Coagulopathy ICD Codes: D68.9 - Coagulation defect, unspecified Plan: Patient has received blood product, FFP and PRBCs (5) Ascites ICD Codes: R18.8 - Other ascites Plan: Due to alcoholic cirrhosis (6) Hyponatremia ICD Codes: E87.1 - Hypo-osmolality and hyponatremia Plan: Sodium has improved Problem Qualifiers (1) Acute renal failure: Qualified Codes: N17.9 - Acute kidney failure, unspecified (2) Alcoholic cirrhosis: Qualified Codes: K70.31 - Alcoholic cirrhosis of liver with ascites (3) Ascites: Qualified Codes: K70.31 - Alcoholic cirrhosis of liver with ascites Ciro Elder MD Jan 10, 2018 17:29
[2018-01-11] VITALS (18 sets, daily range): BP systolic 113–124; BP diastolic 55–98; PULSE 64–89; RESP 18; TEMP 98.3–100; O2SAT 98–99
[2018-01-11] MEDS: PROPOFOL 1000 MG/100 ML INJ 100 ML IV PRN ×6 (00:21→16:30)
[2018-01-11] MEDS: OCTREOTIDE INJ 500 MCG in SODIUM CHLORID 0.9% 500 ML INJ 499.5 ML IV SCH ×2 (00:21→22:09)
[2018-01-11] MEDS: PIPERACIL-TAZO 2.25 GM PREMIX 50 ML IV SCH ×4 (01:10→20:53)
[2018-01-11] MEDS: RESP: ALBUTEROL 2.5 MG/IPRATROPIUM 0.5 MG NEB (SCH) NEB ×6 (03:04→23:16)
[2018-01-11] MEDS: INSULIN NovoLIN REGULAR SUPPLEMENTAL SCALE SQ SCH ×6 (04:00→20:00)
[2018-01-11] MEDS: CHLORHEXIDINE GLUCONATE 2 % 1 PACK (2 CLOTHS) TOP SCH (04:00)
[2018-01-11 05:49] LABS: AUTOMATED NEUTROPHIL # 5.5 TH/MM3 (1.8-7.7); BASOPHIL # 0.1 TH/MM3 (0-0.2); BASOPHIL % 1.1 % (0.0-2.0); EOSINOPHIL # 0.3 TH/MM3 (0-0.4); EOSINOPHIL % 3.1 % (0.0-4.0); HEMATOCRIT 23.5 % (39.0-51.0); HEMOGLOBIN 8.4 GM/DL (13.0-17.0); LYMPH % 29.4 % (9.0-44.0); LYMPHOCYTE # 2.8 TH/MM3 (1.0-4.8); MEAN CORPUSCULAR HEMOGLOBIN 30.6 PG (27.0-34.0); MEAN CORPUSCULAR HGB CONC 35.6 % (32.0-36.0); MEAN PLATELET VOLUME 7.8 FL (7.0-11.0); MONO % 8.7 % (0.0-8.0); MONOCYTE # 0.8 TH/MM3 (0-0.9); NEUT % 57.7 % (16.0-70.0); PLATELET COUNT 86 TH/MM3 (150-450); RED BLOOD COUNT 2.73 MIL/MM3 (4.50-5.90); RED CELL DISTRIBUTION WIDTH 19.3 % (11.6-17.2); WHITE BLOOD COUNT 9.5 TH/MM3 (4.0-11.0)
[2018-01-11] MEDS: PANTOPRAZOLE INJ 80 MG in SODIUM CHLORIDE 0.9% INJ 100 ML IV SCH ×2 (05:52→19:08)
[2018-01-11] MEDS: METOCLOPRAMIDE HCL 10 MG/2 ML VIAL IV PUSH SCH ×3 (05:53→21:17)
[2018-01-11] MEDS: PENTOXIFYLLINE 400 MG CONTROLLED RELEASE TAB PO SCH ×3 (06:00→21:17)
[2018-01-11 06:07] LABS: ALKALINE PHOSPHATASE 69 U/L (45-117); ALT (GPT) 77 U/L (12-78); PHOSPHORUS 3.1 MG/DL (2.5-4.9); TOTAL BILIRUBIN ADULT 15.1 MG/DL (0.2-1.0); TOTAL PROTEIN 6.1 GM/DL (6.4-8.2)
[2018-01-11 06:08] LABS: ALBUMIN 3.2 GM/DL (3.4-5.0); AST (GOT) 207 U/L (15-37); BICARBONATE 28.2 MEQ/L (21.0-32.0); BLOOD UREA NITROGEN 63 MG/DL (7-18); CALCIUM 8.9 MG/DL (8.5-10.1); CHLORIDE 108 MEQ/L (98-107); CREATININE 2.45 MG/DL (0.60-1.30); GLOMERULAR FILTRATION RATE 28 ML/MIN (>89); GLUCOSE,RANDOM 113 MG/DL (74-106); MAGNESIUM 2.1 MG/DL (1.5-2.5); SODIUM (NA) 147 MEQ/L (136-145)
[2018-01-11] MEDS: ARTIFICIAL TEARS OPTH SOLN 15 ML BTL EACH EYE SCH ×3 (06:21→23:00)
[2018-01-11] MEDS: CHLORHEXIDINE 0.12% (ORAL KIT) 15 ML CUP MT SCH ×2 (08:22→20:00)
[2018-01-11] MEDS: SODIUM CHLORIDE 0.9% FLUSH 10 ML FLUSH IV FLUSH SCH ×3 (08:23→20:53)
[2018-01-11] MEDS: PHYTONADIONE 5 MG/SWFI 5 ML ORAL SYR PO SCH (08:23)
[2018-01-11] MEDS: ALBUMIN 25% INJ 50 ML IV SCH ×2 (08:23→20:53)
[2018-01-11] MEDS: THIAMINE INJ 100 MG in SODIUM CHLORIDE 0.9% INJ 100 ML IV SCH (08:23)
[2018-01-11] MEDS: LACTULOSE SYRUP 20 GM/30 ML CUP PO SCH ×4 (08:24→20:53)
[2018-01-11 09:55] LABS: ACANTHOCYTES OCC (NORMAL); BANDS 31 % (0-6); BASOPHILS 1 % (0-2); BURR CELLS 1+ (NORMAL); LYMPHOCYTES 7 % (9-44); MONOCYTES 5 % (0-8); POLYS (SEG NEUTROPHILS) 53 % (16-70); TEARDROP RBCS 1+ (NORMAL)
[2018-01-11 09:56] LABS: TARGET CELLS 1+ (NORMAL); TOXIC GRANULATION 1+ (NORMAL)
--- NOTE | 2018-01-11 10:53 | HHI.CCPN ---
Subjective Remarks/Hospital Course Patient is a 52-year-old male with history of alcohol dependence, on chronic Coumadin for "abdominal vein thrombosis", history of hypertension who presented to the emergency department with complaints of increasing jaundice, increasing abdominal girth and vomiting jade blood multiple times over the last 2 days. Patient admits to being a heavy drinker he drinks about 1.75 L bottle hard liquor every 2 days. ER workup showed patient had a hemoglobin of 8.1, INR was 15.7. PTT 156.1, white count of 13.6 with 10% bands. Also sodium was noted to be 119, AST 439 ALT 115 and bilirubin of 7.6. A stat CT abdomen pelvis showed moderate ascites, probable cirrhosis and hepatic steatosis, splenomegaly, and gallstones. Patient had been ordered to receive 2 units of PRBC, and total 4 units of FFP. INR, Hb will be rechecked after this and additional FFP will be given accordingly. 10 mg vitamin K also ordered. Unfortunately hospital is out of [facility]. I evaluated the patient in the emergency department. He initially had an alcohol level of 135. At the time of my exam he is in moderate distress appears to be slightly tremulous. I have initiated CIWA protocol. I will also start its Rocephin for SBP prophylaxis. Patient had been started on IV Protonix infusion and octreotide which will be continued. Patient clinically also appears to have at least moderate ascites but I am unable to perform paracentesis due to elevated INR. 12/28: Currently resting in bed complaining of abdominal pain. Short of breath and tachypnea. Complaining of nausea currently. Remains on nasal cannula. Patient does not desire his mother's to have knowledge about his alcohol use. 12/29: Afebrile. Remains intubated post EGD yesterday due to worsening hypoxia. Currently on PSV trial 26/05 at 40%. Remains on dexmedetomidine drip and attempt to wean with alcohol use and likely progression to DTs. Banding of varices noted. Pentoxifylline 400 mg every 8 hours initiated with appropriate 12/30: Awake on dexmedetomidine drip at 1 mcg/kg/min. Following commands and attempting to write. Nods his head when states he feels the effects of alcohol withdrawals. Afebrile. Continues to leak from prior site of paracentesis. 12/31: Diminished urine output noted overnight. Increasing FiO2 requirement. Bladder pressures measured currently elevated around 25. Will place tube to suction and notify GI. Nephrology consult placed. Will need central line. 01/01: T-max 100. Currently 99. Meld score 34. Discriminant function is 34. Tamera alcohol scale score 7. Arousable the ventilator. FiO2 increased to 40- 60% overnight. 350 cc from NG tube overnight. 01/02: T-max 99.8. No bowel movement overnight. Abdomen remains distended. More ascites output from left lower quadrant previous paracentesis site. Arousable on the ventilator and follows commands on sedation vacation. Remains on PEEP of 12. FiO2 60%. 01/03: Patient remains intubated sedated very critical. FiO2 had to be increased to 70%. I have increase PEEP from 12-14. Chest x-ray remains unchanged. T-max 100.5. Urine output 1.3 L. BUN 42 creatinine 3.5 hemoglobin 7.4. Bedside ultrasound shows at least moderate ascites. Plan for thoracentesis for fluid removal and also will help with vent dynamic. 01/04: Persistent problems with oxygenation related to diffuse basilar atelectasis. Patient converted to airway pressure release ventilation this morning. Caloric intake probably on the high side in view of propofol infusion. Will reduce TPN to 60 cc/h. Enteral feedings at trickle rate. 01/05: Patient placed on APRV mode 01/04 with T-hi 5 sec Pres hi 30, with release volumes around 800 cc. Good oxygen saturation 30% FiO2. X-ray shows improvement in bilateral consolidation persistent left lower lobe infiltrate. Urine output 1.5 L also 1.5 L out from left paracentesis site. Transfuse 1 U PRBC 01/06: Remains critically ill but making some progress. Reduce PHigh to 26, T high to 4.5, if tolerated well, attempt to switch to PC/AC with PEEP 18-20 and rita iTime. Urine output adequate 2.3 L in 24 hours. Paracentesis site draining approximately 1.4 L despite paracentesis and removal of 3.5 L yesterday. Increase Lasix to 60 mg IV q6hr, Creat improved to 3.29 01/07: Oxygenation modestly improved with very aggressive mean airway pressures , continue PEEP 1820. Abdominal girth and ascites have conspired to reduce functional residual capacity. Now a permanent peritoneal drain is in place and we will attempt to make some progress with gas exchange. Between the intractable ascites, morbid obesity, and respiratory failure it will be very difficult to remove this patient from positive pressure ventilation. 01/08: ET tube has migrated above the vocal cords. Directly visualized with glide scope after receiving 40 mg etomidate. Cuff was deflated several times and advanced with adequate tidal volumes post advancement. Follow-up chest x- ray revealed adequate placement of ET tube. Remains on furosemide will change to drip today. 01/09: Afebrile. FiO2 down to 65%. Continues with profuse drainage from pigtail site. Not tolerating tube feeds. Hemoglobin 6.4 units PRBCs. Will transfuse 1 unit today. 01/10: FiO2 down to 40%. PEEP decreased to 12. Arousable on propofol and fentanyl drips and able to follow commands. Transfuse 1 additional unit PRBCs overnight hemoglobin currently 8.4. Subjective 01/11: T-max 99. PEEP decreased to 10. Continue to be aroused on propofol and fentanyl drips and follows commands. Hemoglobin stable Objective Vital Signs Date Time Temp Pulse Resp B/P (MAP) Pulse Ox O2 Delivery O2 Flow Rate FiO2 01/11/18 10:00 84 01/11/18 10:00 98.8 18 124/63 (83) 99 01/11/18 08:00 35 01/09/18 16:30 Ventilator Intake and Output 01/11/18 01/11/18 01/12/18 08:00 16:00 00:00 Intake Total 1020 ml 1193 ml Output Total 1925 ml Balance -905 ml 1193 ml Result Diagram: 01/11/18 0500 01/11/18 0500 Other Results Microbiology Date/Time Source Procedure Growth Status 01/02/18 08:38 Blood Peripheral Aerobic Blood Culture - Final NO GROWTH IN 5 DAYS Complete 01/02/18 08:38 Blood Peripheral Anaerobic Blood Culture - Final NO GROWTH IN 5 DAYS Complete 01/05/18 12:15 Fluid Peritoneal Fluid Gram Stain - Final Complete 01/05/18 12:15 Body Fluid Culture - Final Klebsiella Oxytoca Complete 01/05/18 09:50 Sputum Endotracheal Gram Stain - Final Complete 01/05/18 09:50 Sputum Endotracheal Sputum Culture - Final RARE GROWTH NORMAL RESPIRATORY AISHWARYA Complete 12/30/17 08:45 Urine Catheterized Urine Urine Culture - Final NO GROWTH IN 48 HOURS. Complete Imaging Last Impressions Chest X-Ray 01/09/18599 Signed Impressions: CONCLUSION: 1. Left lung base opacity may be pleural effusion and/or consolidation. 2. Pulmonary edema. Abdomen X-Ray 01/03/18599 Signed Impressions: CONCLUSION: No dilated bowel. Liver Ultrasound 12/31/17 Signed Impressions: CONCLUSION: 1. Diffuse increased echogenicity throughout the liver suggestive of fatty inf iltration and/or hepatocellular disease. 2. Hepatomegaly. 3. Thickened gallbladder wall at 12 mm. No definite gallstones are seen. As ca n be seen with chronic gallbladder disease. Aorta CTA 12/28/17 Signed Impressions: Service Date/Time: Thursday, December 28, 2017 21:00 - CONCLUSION: 1. Normal thoracic and abdominal aorta. No dissection/aneurysm seen. 2. Bibasilar consolidation and patchy densities in the upper lobes. 3. Hepatic steatosis with possible cirrhosis and moderate abdominal ascites. 4. Cholelithiasis. Aldair Francis MD Abdomen/Pelvis CT [id number]/27/[id number] Signed Impressions: Service Date/Time: Wednesday, December 27, 2017 21:00 - CONCLUSION: 1. Diffusely abnormal liver likely secondary to hepatic steatosis and possible changes of cirrhosis. 2. Splenomegaly. This could be secondary to portal hypertension. 3. Moderate ascites. 4. Calcified gallstone. Stefan Grier MD Gall Bladder Ultrasound 12/27/17 Signed Impressions: Service Date/Time: Wednesday, December 27, 2017 21:16 - CONCLUSION: 1. Diffusely abnormal liver secondary to cirrhosis and hepatic steatosis. 2. Gallbladder wall thickening. This is nonspecific. This can be seen with hepatic disease. It also can be seen with cholecystitis in the correct clinical situation. Gallstones were not demonstrated on the ultrasound examination but are clearly present on the CT examination. Stefan Grier MD Procedures Paracentesis EGD Objective Remarks GENERAL: 52-year-old male lying in bed orotracheally intubated SKIN: Warm and dry. Jaundiced HEAD: Atraumatic. Normocephalic. EYES: Pupils equal and round about 3 millimeters, positive for conjunctival icterus. ENT: No nasal bleeding or discharge. Mucous membranes dry and pink. Orotracheally intubated NECK: Trachea midline. Cannot appreciate JVD due to body habitus. Left IJ is clean dry and intact CARDIOVASCULAR: Regular rate and rhythm. S1, S2. No S4. Without murmur RESPIRATORY:Breath sounds equal bilaterally, but reduced in bases. GASTROINTESTINAL: Abdomen distended abdomen nontender obese. There is drainage from bilateral flanks, previous paracentesis sites. Peritoneal drain has been removed MUSCULOSKELETAL: Extremities -bilateral lower extreme 1+ pitting edema NEUROLOGICAL: Sedated but localizes to pain. No obvious cranial nerve deficits. Motor grossly within normal limits. Urinary Catheter: Yes Assessment to: Continue Key insert reason: ICU Pt Getting Diuretics Vascular Central Line Catheter: Yes Assessment to: Continue Date of Insertion: December 31, 2017 Line: Central Venous Catheter Side: Left Location: Internal, Jugular A/P Assessment and Plan NEURO/PSYCH: Alcohol withdrawal Alcohol dependence On propofol drip 30 micrograms per kilogram per minute for sedation while intubated Previously on CIWA protocol with Lorazepam. DC scheduled lorazepam Supplement thiamine, folic acid and MVI with vitamin bag 3 days and switch to IV thiamine on 12/31. Continue while n.p.o. Alcohol cessation encouraged RESP: Acute hypoxemic respiratory failure Likely OHS, STAS PRVC 18/550/1.2/ Ventilator bundle. Albuterol/ipratropium aerosols every 4 hours, albuterol aerosols every 2 hours as needed dyspnea Chest x-ray in 01/09-a mild pulmonary edema Actively diuresing with furosemide drip at 5 mg an hour CV: History of hypertension -Holding amlodipine 5 mg due to GI bleed and Spironolactone 50 mg p.o. daily -Systolic hypertension. As needed labetalol, Nitropaste and nicardipine drip to maintain systolic blood pressure less than 170 -Diuresis with furosemide per nephrology. Currently on furosemide drip at 5 mg an hour GI: Upper GI bleed secondary to esophageal varices Ascites/abdominal Liver cirrhosis/hepatic steatosis Cholelithiasis Elevated lipase Elevated ammonia Hypoalbuminemia EGD 12/28 revealed -esophageal varices/nipple midesophagus with 3 bands noted. Portal gastropathy. Hiatal hernia. Repeat EGD per GI Dobbhoff tube now on trickle feeds. TPN at 50 mL Pentoxifylline 400 mg every 8 hours. Continue pantoprazole infusion at 8 mg an hour, octreotide infusion at 25 mcg/ hr. Status post paracentesis 12/28-3 L. repeat paracentesis with 3.5L removed CT abdomen/pelvis revealed no sequelae of pancreatitis. CT aorta revealed no signs of dissection or leakage. Lactulose 30 every 6 hours, docusate sodium liquid 100 mg twice daily, senna 8.8 mg twice daily and polyethylene glycol 17 g twice daily. Continue metoclopramide 5 every 8. Having BM MELD score in a.m. 01/09 - FEN//Endo: Hypopotassemia -Monitor renal function closely. Sliding scale insulin Accu-Cheks with NovoLog/low regimen every 6 hours to maintain euglycemia 10 units insulin in TPN Decreased sodium chloride and increase potassium chloride in TPN see orders ID: Probable sepsis Noted staph epi blood culture 12/31+ probable contamination Possible SBP -Klebsiella oxycota 01/07 Linezolid and piperacillin/tazobactam renally dosed Repeat sputum cx 01/05 growth Pertinent cultures 01/07 -peritoneal fluid -Klebsiella oxycota 12/31 -blood cultures 1 out of 4 staph epi. 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 Hb 6.9 INR 1.5 today. s/p 1 unit of PRBC and transfuse 3 units PRBCs 01/08. 2 unit PRBCs 01/09 -Serially monitor INR, phytonadione 5 mg given 12/31 -Hemoglobin level slowly trending downward RENAL: Acute kidney injury Possible hepatorenal syndrome Possible contrast nephropathy, vs HRS. Urine sodium 11. Urine creatinine elevated. Negative urine eosinophils. No hydronephrosis on CAT scan. Nephrology Dr. Elder. Furosemide 10 mg an hour with albumin 25 g every 12 hours No hydronephrosis PROPH: -Bilateral lower extremity SCDs. IV pantoprazole infusion. Chemical DVT prophylaxis is contraindicated at this time LINES: -Utilize peripheral IVs, left IJ CVL day placed 12/31 Level 3 follow-up Constantine Alvarado MD Jan 11, 2018 10:53
--- NOTE | 2018-01-11 11:07 | HHI.NPPN ---
Subjective History of Present Illness 52-year-old male, Alcoholic hepatitis/cirrhosis received contrast study and acute renal failure Interval History patient is non oliguric, on Lasix drip, also on Propofol, Octreotide, and Protonix drips. On the ventilator. Jaundiced. Sedated. Fluid overload persists. Objective Data Data 01/11/18 01/12/18 19:00 07:00 Intake Total 1193 ml Balance 1193 ml IV Total 1193 ml Vital Signs Date Time Temp Pulse Resp B/P (MAP) Pulse Ox O2 Delivery O2 Flow Rate FiO2 01/11/18 10:00 84 01/11/18 10:00 98.8 89 18 124/63 (83) 99 01/11/18 08:00 35 01/11/18 08:00 89 01/11/18 07:25 99 35 01/11/18 06:00 80 01/11/18 04:28 99 35 01/11/18 04:00 35 01/11/18 04:00 64 01/11/18 04:00 99.0 80 18 119/56 (77) 98 01/11/18 02:00 72 01/11/18 00:00 98.3 74 18 114/98 (103) 98 01/11/18 00:00 74 01/11/18 00:00 35 01/10/18 23:25 99 35 01/10/18 22:00 72 01/10/18 20:00 75 01/10/18 20:00 40 01/10/18 20:00 98.2 74 18 110/55 (73) 99 01/10/18 19:23 100 40 01/10/18 18:00 77 01/10/18 16:00 40 01/10/18 16:00 79 01/10/18 16:00 98.2 79 18 103/56 (72) 99 01/10/18 15:19 98 40 01/10/18 14:00 78 01/10/18 12:00 75 01/10/18 12:00 40 01/10/18 12:00 97.9 75 18 109/55 (73) 98 01/10/18 11:44 98 40 -: 01/11/18 0500 01/11/18 0500 Physical Exam General Appearance: Well Developed, Well Nourished Eyes Eye Exam: Jaundice Neck Neck Exam: Neck Supple Pulmonary Resp Exam: Clear Bilaterally, Diminished Breath Sounds Cardiology CV Exam: Regular, Normal Sinus Rhythm Gastrointestinal/Abdomen GI Exam: Soft, Distended Extremeties Extremities Exam: Moderate Edema Assessment/Plan Problem List: (1) Acute renal failure ICD Codes: N17.9 - Acute kidney failure, unspecified Plan: Patient has liver cirrhosis and possible hepatorenal syndrome is considered, unlikely as he is non oliguric. Renal function is about the same. Replace potassium. Generalized edema Continue to monitor CMP Avoid nephrotoxins. Hypernatremia is noted. (2) Upper GI bleed ICD Codes: K92.2 - Gastrointestinal hemorrhage, unspecified Plan: GI is following (3) Alcoholic cirrhosis ICD Codes: K70.30 - Alcoholic cirrhosis of liver without ascites Plan: Followed by GI (4) Coagulopathy ICD Codes: D68.9 - Coagulation defect, unspecified Plan: Patient has received blood product, FFP and PRBCs (5) Ascites ICD Codes: R18.8 - Other ascites Plan: Due to alcoholic cirrhosis Problem Qualifiers (1) Acute renal failure: Qualified Codes: N17.9 - Acute kidney failure, unspecified (2) Alcoholic cirrhosis: Qualified Codes: K70.31 - Alcoholic cirrhosis of liver with ascites (3) Ascites: Qualified Codes: K70.31 - Alcoholic cirrhosis of liver with ascites Maik Kim MD Jan 11, 2018 11:06
[2018-01-11] MEDS: POTASSIUM CHLOR 40 MEQ PREMIX 100 ML IV SCH ×2 (12:27→16:00)
[2018-01-11] MEDS: [UNRECOGNIZED DRUG - OTHER] IV-CENTRAL SCH ×8 (12:28)
[2018-01-11] MEDS: POTASSIUM CHLORIDE IV-CENTRAL SCH ×8 (12:28)
[2018-01-11] MEDS: SODIUM ACETATE IV-CENTRAL SCH ×8 (12:28)
[2018-01-12] VITALS (18 sets, daily range): BP systolic 125–182; BP diastolic 63–81; PULSE 77–89; RESP 18–20; TEMP 98.1–99.2; O2SAT 80–100
[2018-01-12] MEDS: PANTOPRAZOLE INJ 80 MG in SODIUM CHLORIDE 0.9% INJ 100 ML IV SCH ×3 (02:25→21:39)
[2018-01-12] MEDS: PIPERACIL-TAZO 2.25 GM PREMIX 50 ML IV SCH ×4 (02:25→20:18)
[2018-01-12] MEDS: PROPOFOL 1000 MG/100 ML INJ 100 ML IV PRN ×6 (02:44→20:30)
[2018-01-12] MEDS: RESP: ALBUTEROL 2.5 MG/IPRATROPIUM 0.5 MG NEB (SCH) NEB ×5 (03:01→19:21)
[2018-01-12] MEDS: INSULIN NovoLIN REGULAR SUPPLEMENTAL SCALE SQ SCH ×6 (04:00→20:00)
[2018-01-12] MEDS: CHLORHEXIDINE GLUCONATE 2 % 1 PACK (2 CLOTHS) TOP SCH (04:00)
--- NOTE | 2018-01-12 05:25 | RADRPT ---
EXAM DATE: 01/12/2018 4:28 AM EDT AGE/SEX: 52 years / Male INDICATIONS: Respiratory failure. CLINICAL DATA: This is the patient's subsequent encounter. Patient reports that signs and symptoms h ave been present for 1 day and indicates a pain score of Nonresponsive. MEDICAL/SURGICAL HISTORY: . Hypertension. Gastroesophageal reflux disease. Cirrhosis Umbilical hernia repair. COMPARISON: [facility] [place], CHEST SINGLE AP, 01/09/2018. . FINDINGS: The ET tube is 1.3 cm from the antionette and a low position. There is a NG tube/feeding tube extending i nto the stomach. The heart size is enlarged. The lungs demonstrate diffuse mixed interstitial and best eolar consolidation being worse at the bases. There is silhouetting of the left hemidiaphragm. CONCLUSION: Diffuse consolidation likely related to edema which appears worse on the current exam. Increased density at the left base related to denser consolidation or atelectasis. Some degree of lef t effusion may be contributing to this. ET tube in a low position 1.3 cm from the antionette. Electronically signed by: Stefan Grier MD 01/12/2018 5:24 AM EDT
[2018-01-12] MEDS: METOCLOPRAMIDE HCL 10 MG/2 ML VIAL IV PUSH SCH ×3 (06:00→21:40)
[2018-01-12] MEDS: PENTOXIFYLLINE 400 MG CONTROLLED RELEASE TAB PO SCH ×3 (06:00→21:43)
[2018-01-12] MEDS: ARTIFICIAL TEARS OPTH SOLN 15 ML BTL EACH EYE SCH ×3 (06:33→22:23)
[2018-01-12 06:48] LABS: AUTOMATED NEUTROPHIL # 9.1 TH/MM3 (1.8-7.7); BASOPHIL # 0.3 TH/MM3 (0-0.2); BASOPHIL % 2.2 % (0.0-2.0); EOSINOPHIL # 0.5 TH/MM3 (0-0.4); EOSINOPHIL % 3.3 % (0.0-4.0); HEMOGLOBIN 8.6 GM/DL (13.0-17.0); LYMPH % 16.4 % (9.0-44.0); LYMPHOCYTE # 2.3 TH/MM3 (1.0-4.8); MEAN CELL VOLUME 87.3 FL (80.0-100.0); MEAN CORPUSCULAR HGB CONC 34.4 % (32.0-36.0); MEAN PLATELET VOLUME 7.9 FL (7.0-11.0); MONO % 12.8 % (0.0-8.0); MONOCYTE # 1.8 TH/MM3 (0-0.9); NEUT % 65.3 % (16.0-70.0); PLATELET COUNT 116 TH/MM3 (150-450); RED BLOOD COUNT 2.86 MIL/MM3 (4.50-5.90); RED CELL DISTRIBUTION WIDTH 19.6 % (11.6-17.2); WHITE BLOOD COUNT 13.9 TH/MM3 (4.0-11.0)
[2018-01-12 07:16] LABS: ALKALINE PHOSPHATASE 80 U/L (45-117); TOTAL BILIRUBIN ADULT 15.7 MG/DL (0.2-1.0); TOTAL PROTEIN 6.2 GM/DL (6.4-8.2)
--- NOTE | 2018-01-12 07:20 | HHI.CCPN ---
Subjective Remarks/Hospital Course Patient is a 52-year-old male with history of alcohol dependence, on chronic Coumadin for "abdominal vein thrombosis", history of hypertension who presented to the emergency department with complaints of increasing jaundice, increasing abdominal girth and vomiting jade blood multiple times over the last 2 days. Patient admits to being a heavy drinker he drinks about 1.75 L bottle hard liquor every 2 days. ER workup showed patient had a hemoglobin of 8.1, INR was 15.7. PTT 156.1, white count of 13.6 with 10% bands. Also sodium was noted to be 119, AST 439 ALT 115 and bilirubin of 7.6. A stat CT abdomen pelvis showed moderate ascites, probable cirrhosis and hepatic steatosis, splenomegaly, and gallstones. Patient had been ordered to receive 2 units of PRBC, and total 4 units of FFP. INR, Hb will be rechecked after this and additional FFP will be given accordingly. 10 mg vitamin K also ordered. Unfortunately hospital is out of [facility]. I evaluated the patient in the emergency department. He initially had an alcohol level of 135. At the time of my exam he is in moderate distress appears to be slightly tremulous. I have initiated CIWA protocol. I will also start its Rocephin for SBP prophylaxis. Patient had been started on IV Protonix infusion and octreotide which will be continued. Patient clinically also appears to have at least moderate ascites but I am unable to perform paracentesis due to elevated INR. 12/28: Currently resting in bed complaining of abdominal pain. Short of breath and tachypnea. Complaining of nausea currently. Remains on nasal cannula. Patient does not desire his mother's to have knowledge about his alcohol use. 12/29: Afebrile. Remains intubated post EGD yesterday due to worsening hypoxia. Currently on PSV trial 26/05 at 40%. Remains on dexmedetomidine drip and attempt to wean with alcohol use and likely progression to DTs. Banding of varices noted. Pentoxifylline 400 mg every 8 hours initiated with appropriate 12/30: Awake on dexmedetomidine drip at 1 mcg/kg/min. Following commands and attempting to write. Nods his head when states he feels the effects of alcohol withdrawals. Afebrile. Continues to leak from prior site of paracentesis. 12/31: Diminished urine output noted overnight. Increasing FiO2 requirement. Bladder pressures measured currently elevated around 25. Will place tube to suction and notify GI. Nephrology consult placed. Will need central line. 01/01: T-max 100. Currently 99. Meld score 34. Discriminant function is 34. Tamera alcohol scale score 7. Arousable the ventilator. FiO2 increased to 40- 60% overnight. 350 cc from NG tube overnight. 01/02: T-max 99.8. No bowel movement overnight. Abdomen remains distended. More ascites output from left lower quadrant previous paracentesis site. Arousable on the ventilator and follows commands on sedation vacation. Remains on PEEP of 12. FiO2 60%. 01/03: Patient remains intubated sedated very critical. FiO2 had to be increased to 70%. I have increase PEEP from 12-14. Chest x-ray remains unchanged. T-max 100.5. Urine output 1.3 L. BUN 42 creatinine 3.5 hemoglobin 7.4. Bedside ultrasound shows at least moderate ascites. Plan for thoracentesis for fluid removal and also will help with vent dynamic. 01/04: Persistent problems with oxygenation related to diffuse basilar atelectasis. Patient converted to airway pressure release ventilation this morning. Caloric intake probably on the high side in view of propofol infusion. Will reduce TPN to 60 cc/h. Enteral feedings at trickle rate. 01/05: Patient placed on APRV mode 01/04 with T-hi 5 sec Pres hi 30, with release volumes around 800 cc. Good oxygen saturation 30% FiO2. X-ray shows improvement in bilateral consolidation persistent left lower lobe infiltrate. Urine output 1.5 L also 1.5 L out from left paracentesis site. Transfuse 1 U PRBC 01/06: Remains critically ill but making some progress. Reduce PHigh to 26, T high to 4.5, if tolerated well, attempt to switch to PC/AC with PEEP 18-20 and rita iTime. Urine output adequate 2.3 L in 24 hours. Paracentesis site draining approximately 1.4 L despite paracentesis and removal of 3.5 L yesterday. Increase Lasix to 60 mg IV q6hr, Creat improved to 3.29 01/07: Oxygenation modestly improved with very aggressive mean airway pressures , continue PEEP 1820. Abdominal girth and ascites have conspired to reduce functional residual capacity. Now a permanent peritoneal drain is in place and we will attempt to make some progress with gas exchange. Between the intractable ascites, morbid obesity, and respiratory failure it will be very difficult to remove this patient from positive pressure ventilation. 01/08: ET tube has migrated above the vocal cords. Directly visualized with glide scope after receiving 40 mg etomidate. Cuff was deflated several times and advanced with adequate tidal volumes post advancement. Follow-up chest x- ray revealed adequate placement of ET tube. Remains on furosemide will change to drip today. 01/09: Afebrile. FiO2 down to 65%. Continues with profuse drainage from pigtail site. Not tolerating tube feeds. Hemoglobin 6.4 units PRBCs. Will transfuse 1 unit today. 01/10: FiO2 down to 40%. PEEP decreased to 12. Arousable on propofol and fentanyl drips and able to follow commands. Transfuse 1 additional unit PRBCs overnight hemoglobin currently 8.4. 01/11: T-max 99. PEEP decreased to 10. Continue to be aroused on propofol and fentanyl drips and follows commands. Hemoglobin stable Subjective 01/12: PEEP decreased from 10 - 8. Remains arousable on propofol and fentanyl drips and follows commands. Hemoglobin stable. A.m. labs from [facility] currently pending. Objective Vital Signs Date Time Temp Pulse Resp B/P (MAP) Pulse Ox O2 Delivery O2 Flow Rate FiO2 01/12/18 07:13 100 35 01/12/18 06:00 89 01/12/18 04:00 98.1 18 131/65 (87) 01/09/18 16:30 Ventilator Intake and Output 01/12/18 01/12/18 01/13/18 08:00 16:00 00:00 Intake Total 410 ml Output Total 2750 ml Balance -2340 ml Result Diagram: 01/12/18 0600 01/11/18 2240 Other Results Microbiology Date/Time Source Procedure Growth Status 01/02/18 08:38 Blood Peripheral Aerobic Blood Culture - Final NO GROWTH IN 5 DAYS Complete 01/02/18 08:38 Blood Peripheral Anaerobic Blood Culture - Final NO GROWTH IN 5 DAYS Complete 01/05/18 12:15 Fluid Peritoneal Fluid Gram Stain - Final Complete 01/05/18 12:15 Body Fluid Culture - Final Klebsiella Oxytoca Complete 01/05/18 09:50 Sputum Endotracheal Gram Stain - Final Complete 01/05/18 09:50 Sputum Endotracheal Sputum Culture - Final RARE GROWTH NORMAL RESPIRATORY AISHWARYA Complete 12/30/17 08:45 Urine Catheterized Urine Urine Culture - Final NO GROWTH IN 48 HOURS. Complete Imaging Last Impressions Chest X-Ray 01/12/18599 Signed Impressions: CONCLUSION: Diffuse consolidation likely related to edema which appears worse on the curren t exam. Increased density at the left base related to denser consolidation or atelectas is. Some degree of left effusion may be contributing to this. ET tube in a low position 1.3 cm from the antionette. Abdomen X-Ray 01/03/18 06 Signed Impressions: CONCLUSION: No dilated bowel. Liver Ultrasound 12/31/17 0000 Signed Impressions: CONCLUSION: 1. Diffuse increased echogenicity throughout the liver suggestive of fatty inf iltration and/or hepatocellular disease. 2. Hepatomegaly. 3. Thickened gallbladder wall at 12 mm. No definite gallstones are seen. As ca n be seen with chronic gallbladder disease. Aorta CTA 12/28/17 Signed Impressions: Service Date/Time: Thursday, December 28, 2017 21:00 - CONCLUSION: 1. Normal thoracic and abdominal aorta. No dissection/aneurysm seen. 2. Bibasilar consolidation and patchy densities in the upper lobes. 3. Hepatic steatosis with possible cirrhosis and moderate abdominal ascites. 4. Cholelithiasis. Aldair Francis MD Abdomen/Pelvis CT 12/27/171921 Signed Impressions: Service Date/Time: Wednesday, December 27, 2017 21:00 - CONCLUSION: 1. Diffusely abnormal liver likely secondary to hepatic steatosis and possible changes of cirrhosis. 2. Splenomegaly. This could be secondary to portal hypertension. 3. Moderate ascites. 4. Calcified gallstone. Stefan Grier MD Gall Bladder Ultrasound 12/27/17 0000 Signed Impressions: Service Date/Time: Wednesday, December 27, 2017 21:16 - CONCLUSION: 1. Diffusely abnormal liver secondary to cirrhosis and hepatic steatosis. 2. Gallbladder wall thickening. This is nonspecific. This can be seen with hepatic disease. It also can be seen with cholecystitis in the correct clinical situation. Gallstones were not demonstrated on the ultrasound examination but are clearly present on the CT examination. Stefan Grier MD Procedures Paracentesis EGD Objective Remarks GENERAL: 52-year-old male lying in bed orotracheally intubated SKIN: Warm and dry. Jaundiced HEAD: Atraumatic. Normocephalic. EYES: Pupils equal and round about 3 millimeters, positive for conjunctival icterus. ENT: No nasal bleeding or discharge. Mucous membranes dry and pink. Orotracheally intubated NECK: Trachea midline. Cannot appreciate JVD due to body habitus. Left IJ is clean dry and intact CARDIOVASCULAR: Regular rate and rhythm. S1, S2. No S4. Without murmur RESPIRATORY:Breath sounds equal bilaterally, but reduced in bases. GASTROINTESTINAL: Abdomen distended abdomen nontender obese. There is drainage from bilateral flanks, previous paracentesis sites. Peritoneal drain has been removed MUSCULOSKELETAL: Extremities -bilateral lower extreme 1+ pitting edema NEUROLOGICAL: Sedated but localizes to pain. No obvious cranial nerve deficits. Motor grossly within normal limits. Urinary Catheter: Yes Assessment to: Continue Key insert reason: ICU Pt Getting Diuretics Vascular Central Line Catheter: Yes Assessment to: Continue Date of Insertion: December 31, 2017 Line: Central Venous Catheter Side: Left Location: Internal, Jugular A/P Assessment and Plan NEURO/PSYCH: Alcohol withdrawal Alcohol dependence On propofol drip 30 micrograms per kilogram per minute for sedation while intubated with as needed fentanyl drip Previously on CIWA protocol with Lorazepam. DC scheduled lorazepam Supplement thiamine, folic acid and MVI with vitamin bag 3 days and switch to IV thiamine on 12/31. Continue while n.p.o. Alcohol cessation encouraged RESP: Acute hypoxemic respiratory failure Likely OHS, STAS PRVC 18/550/1.2/8/35 Ventilator bundle. Albuterol/ipratropium aerosols every 4 hours, albuterol aerosols every 2 hours as needed dyspnea Chest x-ray in 01/12-a worsening pulmonary edema/possible left lower lobe effusion Actively diuresing with furosemide 40 mg IV twice daily CV: History of hypertension -Holding amlodipine 5 mg due to GI bleed and Spironolactone 50 mg p.o. daily -Systolic hypertension. As needed labetalol, Nitropaste and nicardipine drip to maintain systolic blood pressure less than 170 -Diuresis with furosemide per nephrology. Currently on furosemide 40 mg IV twice daily GI: Upper GI bleed secondary to esophageal varices Ascites/abdominal Liver cirrhosis/hepatic steatosis Cholelithiasis Elevated lipase Elevated ammonia Hypoalbuminemia EGD 12/28 revealed -esophageal varices/nipple midesophagus with 3 bands noted. Portal gastropathy. Hiatal hernia. Repeat EGD per GI Dobbhoff tube now on trickle feeds. TPN at 50 mL Pentoxifylline 400 mg every 8 hours. Continue pantoprazole infusion at 8 mg an hour, octreotide infusion at 25 mcg/ hr. Status post paracentesis 12/28-3 L. repeat paracentesis with 3.5L removed CT abdomen/pelvis revealed no sequelae of pancreatitis. CT aorta revealed no signs of dissection or leakage. Lactulose 30 every 6 hours, docusate sodium liquid 100 mg twice daily, senna 8.8 mg twice daily and polyethylene glycol 17 g twice daily. Continue metoclopramide 5 every 8. Having BM MELD score in a.m. 01/09 - . Similar findings since FEN//Endo: Hypopotassemia Hypernatremia -Monitor renal function closely. Sliding scale insulin Accu-Cheks with NovoLog/low regimen every 6 hours to maintain euglycemia 10 units insulin in TPN Adjusting TPN see orders ID: Probable sepsis Noted staph epi blood culture 12/31+ probable contamination Possible SBP -Klebsiella oxycota 01/07 Linezolid and piperacillin/tazobactam renally dosed. Discontinue linezolid 01/13 Repeat sputum cx 01/05 growth Pertinent cultures 01/07 -peritoneal fluid -Klebsiella oxycota 12/31 -blood cultures 1 out of 4 staph epi. 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 Hb 6.9 INR 1.5 today. s/p 1 unit of PRBC and transfuse 3 units PRBCs 01/08. 2 unit PRBCs 01/09 -Serially monitor INR, phytonadione 5 mg given 12/31 -Hemoglobin level slowly trending downward RENAL: Acute kidney injury Possible hepatorenal syndrome Possible contrast nephropathy, vs HRS. Urine sodium 11. Urine creatinine elevated. Negative urine eosinophils. No hydronephrosis on CAT scan. Nephrology Dr. Elder. Furosemide 10 mg an hour with albumin 25 g every 12 hours No hydronephrosis PROPH: -Bilateral lower extremity SCDs. IV pantoprazole infusion. Chemical DVT prophylaxis is contraindicated at this time LINES: -Utilize peripheral IVs, left IJ CVL day placed 12/31 Level 3 follow-up Constantine Alvarado MD Jan 12, 2018 07:20
[2018-01-12 07:30] LABS: ALT (GPT) 84 U/L (12-78); AST (GOT) 206 U/L (15-37); BICARBONATE 26.8 MEQ/L (21.0-32.0); CALCIUM 8.6 MG/DL (8.5-10.1); CHLORIDE 111 MEQ/L (98-107); CREATININE 2.36 MG/DL (0.60-1.30); DIRECT BILIRUBIN ADULT 11.5 MG/DL (0.0-0.2); GLOMERULAR FILTRATION RATE 29 ML/MIN (>89); GLUCOSE,RANDOM 125 MG/DL (74-106); INDIRECT BILIRUBIN 4.2 MG/DL (0.0-0.8); PHOSPHORUS 3.2 MG/DL (2.5-4.9); SODIUM (NA) 150 MEQ/L (136-145)
[2018-01-12 07:32] LABS: BLOOD UREA NITROGEN 56 MG/DL (7-18)
[2018-01-12] MEDS: POTASSIUM CHLORIDE IV-CENTRAL SCH ×8 (08:00)
[2018-01-12] MEDS ORDERED: POTASSIUM CHLOR 40 MEQ PREMIX 100 ML IV ONE (08:00)
[2018-01-12] MEDS: SODIUM ACETATE IV-CENTRAL SCH ×8 (08:00)
[2018-01-12] MEDS: [UNRECOGNIZED DRUG - OTHER] IV-CENTRAL SCH ×8 (08:00)
[2018-01-12] MEDS: PHYTONADIONE 5 MG/SWFI 5 ML ORAL SYR PO SCH (08:39)
[2018-01-12] MEDS: LACTULOSE SYRUP 20 GM/30 ML CUP PO SCH ×4 (08:39→20:19)
[2018-01-12] MEDS: FUROSEMIDE 40 MG/4 ML VIAL IV PUSH SCH ×2 (08:40→17:09)
[2018-01-12] MEDS: THIAMINE INJ 100 MG in SODIUM CHLORIDE 0.9% INJ 100 ML IV SCH (08:40)
[2018-01-12] MEDS: ALBUMIN 25% INJ 50 ML IV SCH ×2 (08:42→20:44)
[2018-01-12] MEDS: SODIUM CHLORIDE 0.9% FLUSH 10 ML FLUSH IV FLUSH SCH ×3 (08:43→20:18)
[2018-01-12] MEDS: CHLORHEXIDINE 0.12% (ORAL KIT) 15 ML CUP MT SCH ×2 (08:50→20:18)
[2018-01-12 08:51] LABS: INTERNATIONAL NORMALIZED RATIO 1.3 RATIO; PROTHROMBIN TIME - PATIENT 13.4 SEC (9.8-11.6)
[2018-01-12] MEDS ORDERED: SODIUM CHLORIDE 23.4% INJ 38.5 MEQ in WATER STERILE FOR INJ 1,000 ML IV SCH (09:00)
[2018-01-12] MEDS ORDERED: CHLOROTHIAZIDE SOD 500 MG VIAL IV ONE (10:15)
--- NOTE | 2018-01-12 10:17 | HHI.NPPN ---
Subjective History of Present Illness 52-year-old male, Alcoholic hepatitis/cirrhosis received contrast study and acute renal failure Interval History patient remains on the ventilator. Lasix drip has been stopped. On intermittent Lasix. Now also on 1/4NS. On TPN. Objective Data Data Vital Signs Date Time Temp Pulse Resp B/P (MAP) Pulse Ox O2 Delivery O2 Flow Rate FiO2 01/12/18 07:13 100 35 01/12/18 06:00 89 01/12/18 04:00 82 01/12/18 04:00 35 01/12/18 04:00 98.1 82 18 131/65 (87) 99 01/12/18 03:01 100 35 01/12/18 02:00 82 01/12/18 00:00 84 01/12/18 00:00 98.4 84 18 125/63 (83) 99 01/12/18 00:00 35 01/11/18 23:16 99 35 01/11/18 22:00 85 01/11/18 20:00 86 01/11/18 20:00 35 01/11/18 20:00 98.5 86 18 124/63 (83) 98 01/11/18 19:20 99 35 01/11/18 18:00 86 01/11/18 16:00 87 01/11/18 16:00 35 01/11/18 16:00 99.9 87 18 113/55 (74) 99 01/11/18 15:04 99 35 01/11/18 14:00 88 01/11/18 12:00 100.0 88 18 115/59 (77) 99 01/11/18 12:00 35 01/11/18 12:00 88 01/11/18 11:02 99 35 -: 01/12/18 0600 01/12/18 0600 Physical Exam General Appearance: Well Developed, Well Nourished Eyes Eye Exam: Jaundice Neck Neck Exam: Neck Supple Pulmonary Resp Exam: Clear Bilaterally, Diminished Breath Sounds Cardiology CV Exam: Regular, Normal Sinus Rhythm Gastrointestinal/Abdomen GI Exam: Soft, Distended Extremeties Extremities Exam: Moderate Edema Assessment/Plan Problem List: (1) Acute renal failure ICD Codes: N17.9 - Acute kidney failure, unspecified Plan: Patient has liver cirrhosis and possible hepatorenal syndrome is considered, unlikely as he is non oliguric. Some improvement in renal function. Replace potassium. Hypernatremia is noted. Recommend to adjust sodium content of TPN: perhaps remove it altogether instead of using 1/4 NS. Also would recommend use of Diuril for diuresis. (2) Upper GI bleed ICD Codes: K92.2 - Gastrointestinal hemorrhage, unspecified Plan: GI is following (3) Alcoholic cirrhosis ICD Codes: K70.30 - Alcoholic cirrhosis of liver without ascites Plan: Followed by GI (4) Coagulopathy ICD Codes: D68.9 - Coagulation defect, unspecified Plan: Patient has received blood product, FFP and PRBCs (5) Ascites ICD Codes: R18.8 - Other ascites Plan: Due to alcoholic cirrhosis Problem Qualifiers (1) Acute renal failure: Qualified Codes: N17.9 - Acute kidney failure, unspecified (2) Alcoholic cirrhosis: Qualified Codes: K70.31 - Alcoholic cirrhosis of liver with ascites (3) Ascites: Qualified Codes: K70.31 - Alcoholic cirrhosis of liver with ascites Maik Kim MD Jan 12, 2018 10:17
[2018-01-12] MEDS: OCTREOTIDE INJ 500 MCG in SODIUM CHLORID 0.9% 500 ML INJ 499.5 ML IV SCH (17:08)
[2018-01-13] VITALS (18 sets, daily range): BP systolic 118–144; BP diastolic 62–92; PULSE 72–98; RESP 18–24; TEMP 98–99; O2SAT 96–100
[2018-01-13] MEDS: PROPOFOL 1000 MG/100 ML INJ 100 ML IV PRN ×4 (00:30→23:33)
[2018-01-13] MEDS: PIPERACIL-TAZO 2.25 GM PREMIX 50 ML IV SCH ×4 (02:38→20:09)
[2018-01-13] MEDS: INSULIN NovoLIN REGULAR SUPPLEMENTAL SCALE SQ SCH ×6 (04:00→20:00)
[2018-01-13] MEDS: PENTOXIFYLLINE 400 MG CONTROLLED RELEASE TAB PO SCH ×3 (04:58→21:44)
[2018-01-13] MEDS: CHLORHEXIDINE GLUCONATE 2 % 1 PACK (2 CLOTHS) TOP SCH (04:58)
[2018-01-13 05:15] LABS: AUTOMATED NEUTROPHIL # 13.4 TH/MM3 (1.8-7.7); BASOPHIL # 0.3 TH/MM3 (0-0.2); BASOPHIL % 1.5 % (0.0-2.0); EOSINOPHIL # 0.6 TH/MM3 (0-0.4); EOSINOPHIL % 3.2 % (0.0-4.0); HEMATOCRIT 26.1 % (39.0-51.0); HEMOGLOBIN 8.7 GM/DL (13.0-17.0); LYMPH % 12.2 % (9.0-44.0); LYMPHOCYTE # 2.3 TH/MM3 (1.0-4.8); MEAN CELL VOLUME 87.5 FL (80.0-100.0); MEAN CORPUSCULAR HEMOGLOBIN 29.1 PG (27.0-34.0); MEAN CORPUSCULAR HGB CONC 33.2 % (32.0-36.0); MEAN PLATELET VOLUME 8.2 FL (7.0-11.0); MONO % 11.4 % (0.0-8.0); MONOCYTE # 2.1 TH/MM3 (0-0.9); NEUT % 71.7 % (16.0-70.0); PLATELET COUNT 172 TH/MM3 (150-450); RED BLOOD COUNT 2.99 MIL/MM3 (4.50-5.90); WHITE BLOOD COUNT 18.7 TH/MM3 (4.0-11.0)
[2018-01-13 05:18] LABS: INTERNATIONAL NORMALIZED RATIO 1.4 RATIO
[2018-01-13 05:45] LABS: ALBUMIN 3.1 GM/DL (3.4-5.0); ALKALINE PHOSPHATASE 86 U/L (45-117); ALT (GPT) 92 U/L (12-78); AST (GOT) 214 U/L (15-37); BICARBONATE 29.2 MEQ/L (21.0-32.0); BLOOD UREA NITROGEN 54 MG/DL (7-18); CALCIUM 9.7 MG/DL (8.5-10.1); CHLORIDE 108 MEQ/L (98-107); CREATININE 2.37 MG/DL (0.60-1.30); GLOMERULAR FILTRATION RATE 29 ML/MIN (>89); GLUCOSE,RANDOM 99 MG/DL (74-106); PHOSPHORUS 3.6 MG/DL (2.5-4.9); SODIUM (NA) 148 MEQ/L (136-145); TOTAL PROTEIN 6.5 GM/DL (6.4-8.2)
[2018-01-13] MEDS: METOCLOPRAMIDE HCL 10 MG/2 ML VIAL IV PUSH SCH ×3 (05:47→21:44)
[2018-01-13] MEDS: ARTIFICIAL TEARS OPTH SOLN 15 ML BTL EACH EYE SCH ×3 (05:47→22:35)
[2018-01-13 05:50] LABS: TOTAL BILIRUBIN ADULT 16.5 MG/DL (0.2-1.0)
[2018-01-13 07:09] LABS: BANDS 22 % (0-6); LYMPHOCYTES 7 % (9-44); METAMYELOCYTES 3 % (0-1); MONOCYTES 7 % (0-8); NEUTROPHIL # MANUAL DIFF 15.3 TH/MM3 (1.8-7.7); POLYS (SEG NEUTROPHILS) 57 % (16-70)
[2018-01-13] MEDS: RESP: ALBUTEROL 2.5 MG/IPRATROPIUM 0.5 MG NEB (SCH) NEB ×6 (07:50→23:16)
--- NOTE | 2018-01-13 08:16 | HHI.CCPN ---
Subjective Remarks/Hospital Course Patient is a 52-year-old male with history of alcohol dependence, on chronic Coumadin for "abdominal vein thrombosis", history of hypertension who presented to the emergency department with complaints of increasing jaundice, increasing abdominal girth and vomiting jade blood multiple times over the last 2 days. Patient admits to being a heavy drinker he drinks about 1.75 L bottle hard liquor every 2 days. ER workup showed patient had a hemoglobin of 8.1, INR was 15.7. PTT 156.1, white count of 13.6 with 10% bands. Also sodium was noted to be 119, AST 439 ALT 115 and bilirubin of 7.6. A stat CT abdomen pelvis showed moderate ascites, probable cirrhosis and hepatic steatosis, splenomegaly, and gallstones. Patient had been ordered to receive 2 units of PRBC, and total 4 units of FFP. INR, Hb will be rechecked after this and additional FFP will be given accordingly. 10 mg vitamin K also ordered. Unfortunately hospital is out of [facility]. I evaluated the patient in the emergency department. He initially had an alcohol level of 135. At the time of my exam he is in moderate distress appears to be slightly tremulous. I have initiated CIWA protocol. I will also start its Rocephin for SBP prophylaxis. Patient had been started on IV Protonix infusion and octreotide which will be continued. Patient clinically also appears to have at least moderate ascites but I am unable to perform paracentesis due to elevated INR. 12/28: Currently resting in bed complaining of abdominal pain. Short of breath and tachypnea. Complaining of nausea currently. Remains on nasal cannula. Patient does not desire his mother's to have knowledge about his alcohol use. 12/29: Afebrile. Remains intubated post EGD yesterday due to worsening hypoxia. Currently on PSV trial 26/05 at 40%. Remains on dexmedetomidine drip and attempt to wean with alcohol use and likely progression to DTs. Banding of varices noted. Pentoxifylline 400 mg every 8 hours initiated with appropriate 12/30: Awake on dexmedetomidine drip at 1 mcg/kg/min. Following commands and attempting to write. Nods his head when states he feels the effects of alcohol withdrawals. Afebrile. Continues to leak from prior site of paracentesis. 12/31: Diminished urine output noted overnight. Increasing FiO2 requirement. Bladder pressures measured currently elevated around 25. Will place tube to suction and notify GI. Nephrology consult placed. Will need central line. 01/01: T-max 100. Currently 99. Meld score 34. Discriminant function is 34. Tamera alcohol scale score 7. Arousable the ventilator. FiO2 increased to 40- 60% overnight. 350 cc from NG tube overnight. 01/02: T-max 99.8. No bowel movement overnight. Abdomen remains distended. More ascites output from left lower quadrant previous paracentesis site. Arousable on the ventilator and follows commands on sedation vacation. Remains on PEEP of 12. FiO2 60%. 01/03: Patient remains intubated sedated very critical. FiO2 had to be increased to 70%. I have increase PEEP from 12-14. Chest x-ray remains unchanged. T-max 100.5. Urine output 1.3 L. BUN 42 creatinine 3.5 hemoglobin 7.4. Bedside ultrasound shows at least moderate ascites. Plan for thoracentesis for fluid removal and also will help with vent dynamic. 01/04: Persistent problems with oxygenation related to diffuse basilar atelectasis. Patient converted to airway pressure release ventilation this morning. Caloric intake probably on the high side in view of propofol infusion. Will reduce TPN to 60 cc/h. Enteral feedings at trickle rate. 01/05: Patient placed on APRV mode 01/04 with T-hi 5 sec Pres hi 30, with release volumes around 800 cc. Good oxygen saturation 30% FiO2. X-ray shows improvement in bilateral consolidation persistent left lower lobe infiltrate. Urine output 1.5 L also 1.5 L out from left paracentesis site. Transfuse 1 U PRBC 01/06: Remains critically ill but making some progress. Reduce PHigh to 26, T high to 4.5, if tolerated well, attempt to switch to PC/AC with PEEP 18-20 and rita iTime. Urine output adequate 2.3 L in 24 hours. Paracentesis site draining approximately 1.4 L despite paracentesis and removal of 3.5 L yesterday. Increase Lasix to 60 mg IV q6hr, Creat improved to 3.29 01/07: Oxygenation modestly improved with very aggressive mean airway pressures , continue PEEP 1820. Abdominal girth and ascites have conspired to reduce functional residual capacity. Now a permanent peritoneal drain is in place and we will attempt to make some progress with gas exchange. Between the intractable ascites, morbid obesity, and respiratory failure it will be very difficult to remove this patient from positive pressure ventilation. 01/08: ET tube has migrated above the vocal cords. Directly visualized with glide scope after receiving 40 mg etomidate. Cuff was deflated several times and advanced with adequate tidal volumes post advancement. Follow-up chest x- ray revealed adequate placement of ET tube. Remains on furosemide will change to drip today. 01/09: Afebrile. FiO2 down to 65%. Continues with profuse drainage from pigtail site. Not tolerating tube feeds. Hemoglobin 6.4 units PRBCs. Will transfuse 1 unit today. 01/10: FiO2 down to 40%. PEEP decreased to 12. Arousable on propofol and fentanyl drips and able to follow commands. Transfuse 1 additional unit PRBCs overnight hemoglobin currently 8.4. 01/11: T-max 99. PEEP decreased to 10. Continue to be aroused on propofol and fentanyl drips and follows commands. Hemoglobin stable 01/12: PEEP decreased from 10 - 8. Remains arousable on propofol and fentanyl drips and follows commands. Hemoglobin stable. A.m. labs from [facility] currently pending. Subjective 01/13: Afebrile. Currently awake and alert on the ventilator. Attempting CPAP trial 05/16 at 35%. No new issues overnight. Objective Vital Signs Date Time Temp Pulse Resp B/P (MAP) Pulse Ox O2 Delivery O2 Flow Rate FiO2 01/13/18 07:53 100 Ventilator 35 01/13/18 06:00 75 01/13/18 04:00 98.4 18 119/63 (81) Intake and Output 01/13/18 01/13/18 01/14/18 08:00 16:00 00:00 Output Total 2600 ml Balance -2600 ml Result Diagram: 01/13/18 0426 01/13/18 0426 Other Results Microbiology Date/Time Source Procedure Growth Status 01/02/18 08:38 Blood Peripheral Aerobic Blood Culture - Final NO GROWTH IN 5 DAYS Complete 01/02/18 08:38 Blood Peripheral Anaerobic Blood Culture - Final NO GROWTH IN 5 DAYS Complete 01/05/18 12:15 Fluid Peritoneal Fluid Gram Stain - Final Complete 01/05/18 12:15 Body Fluid Culture - Final Klebsiella Oxytoca Complete 01/05/18 09:50 Sputum Endotracheal Gram Stain - Final Complete 01/05/18 09:50 Sputum Endotracheal Sputum Culture - Final RARE GROWTH NORMAL RESPIRATORY AISHWARYA Complete 12/30/17 08:45 Urine Catheterized Urine Urine Culture - Final NO GROWTH IN 48 HOURS. Complete Imaging Last Impressions Chest X-Ray 01/12/18 06 Signed Impressions: CONCLUSION: Diffuse consolidation likely related to edema which appears worse on the curren t exam. Increased density at the left base related to denser consolidation or atelectas is. Some degree of left effusion may be contributing to this. ET tube in a low position 1.3 cm from the antionette. Abdomen X-Ray 01/03/18 06 Signed Impressions: CONCLUSION: No dilated bowel. Liver Ultrasound 12/31/17 Signed Impressions: CONCLUSION: 1. Diffuse increased echogenicity throughout the liver suggestive of fatty inf iltration and/or hepatocellular disease. 2. Hepatomegaly. 3. Thickened gallbladder wall at 12 mm. No definite gallstones are seen. As ca n be seen with chronic gallbladder disease. Aorta CTA 12/28/17 Signed Impressions: Service Date/Time: Thursday, December 28, 2017 21:00 - CONCLUSION: 1. Normal thoracic and abdominal aorta. No dissection/aneurysm seen. 2. Bibasilar consolidation and patchy densities in the upper lobes. 3. Hepatic steatosis with possible cirrhosis and moderate abdominal ascites. 4. Cholelithiasis. Aldair Francis MD Abdomen/Pelvis CT [id number]/[id number] Signed Impressions: Service Date/Time: Wednesday, December 27, 2017 21:00 - CONCLUSION: 1. Diffusely abnormal liver likely secondary to hepatic steatosis and possible changes of cirrhosis. 2. Splenomegaly. This could be secondary to portal hypertension. 3. Moderate ascites. 4. Calcified gallstone. Stefan Grier MD Gall Bladder Ultrasound 12/27/17 Signed Impressions: Service Date/Time: Wednesday, December 27, 2017 21:16 - CONCLUSION: 1. Diffusely abnormal liver secondary to cirrhosis and hepatic steatosis. 2. Gallbladder wall thickening. This is nonspecific. This can be seen with hepatic disease. It also can be seen with cholecystitis in the correct clinical situation. Gallstones were not demonstrated on the ultrasound examination but are clearly present on the CT examination. Stefan Grier MD Procedures Paracentesis EGD Objective Remarks GENERAL: 52-year-old male lying in bed orotracheally intubated SKIN: Warm and dry. Jaundiced HEAD: Atraumatic. Normocephalic. EYES: Pupils equal and round about 3 millimeters, positive for conjunctival icterus. ENT: No nasal bleeding or discharge. Mucous membranes dry and pink. Orotracheally intubated NECK: Trachea midline. Cannot appreciate JVD due to body habitus. Left IJ is clean dry and intact CARDIOVASCULAR: Regular rate and rhythm. S1, S2. No S4. Without murmur RESPIRATORY:Breath sounds equal bilaterally, but reduced anteriorly and in bases. GASTROINTESTINAL: Abdomen distended abdomen nontender obese. There is drainage from bilateral flanks, previous paracentesis sites. Peritoneal drain has been removed MUSCULOSKELETAL: Extremities -bilateral lower extreme 1+ pitting edema NEUROLOGICAL: Awake on the ventilator and moving all 4 extremities spontaneously. Follows simple commands such as thumbs up with bilateral hands. No obvious cranial nerve deficits. Motor grossly within normal limits. Urinary Catheter: Yes Assessment to: Continue Key insert reason: ICU Pt Getting Diuretics Vascular Central Line Catheter: Yes Assessment to: Continue Date of Insertion: December 31, 2017 Line: Central Venous Catheter Side: Left Location: Internal, Jugular A/P Assessment and Plan NEURO/PSYCH: Alcohol withdrawal Alcohol dependence On propofol drip 30 micrograms per kilogram per minute for sedation while intubated with as needed fentanyl drip Dexmedetomidine drip for vent weaning ordered Previously on CIWA protocol with Lorazepam. DC scheduled lorazepam Supplement thiamine, folic acid and MVI with vitamin bag 3 days and switch to IV thiamine on 12/31. Continue while n.p.o. Alcohol cessation encouraged RESP: Acute hypoxemic respiratory failure Likely OHS, STAS PRVC 18/550/1.2 Currently on CPAP trial 27/12 at 35%. Ventilator bundle. Albuterol/ipratropium aerosols every 4 hours, albuterol aerosols every 2 hours as needed dyspnea Chest x-ray in 01/12-a worsening pulmonary edema/possible left lower lobe effusion. Recheck in a.m. 01/14 Actively diuresing with furosemide 40 mg IV twice daily CV: History of hypertension -Holding amlodipine 5 mg due to GI bleed and Spironolactone 50 mg p.o. daily -Systolic hypertension. As needed labetalol, Nitropaste and nicardipine drip to maintain systolic blood pressure less than 170 -Diuresis with furosemide per nephrology. Currently on furosemide 40 mg IV twice daily GI: Upper GI bleed secondary to esophageal varices Ascites/abdominal Liver cirrhosis/hepatic steatosis Cholelithiasis Elevated lipase Elevated ammonia Hypoalbuminemia/moderate protein calorie malnutrition EGD 12/28 revealed -esophageal varices/nipple midesophagus with 3 bands noted. Portal gastropathy. Hiatal hernia. Repeat EGD per GI Dobbhoff tube now on trickle feeds. TPN at 50 mL Pentoxifylline 400 mg every 8 hours. Change pantoprazole infusion at 8 mg an hour to 40 mg IV twice daily, discontinue octreotide infusion at 25 mcg/hr. Status post paracentesis 12/28-3 L. repeat paracentesis with 3.5L removed CT abdomen/pelvis revealed no sequelae of pancreatitis. CT aorta revealed no signs of dissection or leakage. Lactulose 30 every 12 hours for elevated ammonia/BM Continue metoclopramide 5 every 8. Having BM MELD score in a.m. 01/09 - . Similar findings since FEN//Endo: Hypopotassemia Hypernatremia -Monitor renal function closely. Sliding scale insulin Accu-Cheks with NovoLog/low regimen every 4 hours to maintain euglycemia 10 units insulin in TPN Adjusting TPN see orders ID: Probable sepsis Noted staph epi blood culture 12/31+ probable contamination Possible SBP -Klebsiella oxycota 01/07 Linezolid and piperacillin/tazobactam renally dosed. Discontinue linezolid 01/13 Repeat sputum cx 01/05 growth Pertinent cultures 01/07 -peritoneal fluid -Klebsiella oxycota 12/31 -blood cultures 1 out of 4 staph epi. 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 Hb 8 INR 1.4 today. s/p 1 unit of PRBC 2017 and transfuse 3 units PRBCs 01/08. 2 unit PRBCs 01/09 -Serially monitor INR, phytonadione 5 mg given 12/31 and daily days -Hemoglobin level appear to have stabilized RENAL: Acute kidney injury Possible hepatorenal syndrome Possible contrast nephropathy, vs HRS. Urine sodium 11. Urine creatinine elevated. Negative urine eosinophils. No hydronephrosis on CAT scan. Nephrology Dr. Elder. Furosemide 40 mg IV twice daily No hydronephrosis PROPH: -Bilateral lower extremity SCDs. IV pantoprazole infusion. Chemical DVT prophylaxis is contraindicated at this time LINES: -Utilize peripheral IVs, left IJ CVL day placed 12/31 Level 3 follow-up Constantine Alvarado MD Jan 13, 2018 08:16
[2018-01-13] MEDS: CHLORHEXIDINE 0.12% (ORAL KIT) 15 ML CUP MT SCH ×2 (08:19→20:09)
[2018-01-13] MEDS ORDERED: POTASSIUM CHLOR 40 MEQ PREMIX 100 ML IV ONE (08:30)
[2018-01-13] MEDS ORDERED: POTASSIUM CHLOR 20 MEQ PREMIX 100 ML IV ONE (08:30)
[2018-01-13] MEDS ORDERED: DEXMEDETOMIDINE INJ 200 MCG in SODIUM CHLORIDE 0.9% INJ 50 ML IV PRN (08:45)
[2018-01-13] MEDS: PANTOPRAZOLE INJ 80 MG in SODIUM CHLORIDE 0.9% INJ 100 ML IV SCH (08:49)
[2018-01-13] MEDS: THIAMINE INJ 100 MG in SODIUM CHLORIDE 0.9% INJ 100 ML IV SCH (08:50)
[2018-01-13] MEDS: SODIUM CHLORIDE 0.9% FLUSH 10 ML FLUSH IV FLUSH SCH ×3 (08:51→20:11)
[2018-01-13] MEDS: PHYTONADIONE 5 MG/SWFI 5 ML ORAL SYR PO SCH (08:54)
[2018-01-13] MEDS: FUROSEMIDE 40 MG/4 ML VIAL IV PUSH SCH ×2 (08:54→18:45)
[2018-01-13] MEDS: LACTULOSE SYRUP 20 GM/30 ML CUP PO SCH ×2 (08:54→20:11)
[2018-01-13] MEDS ORDERED: SODIUM CHLORIDE 23.4% INJ 38.5 MEQ in WATER STERILE FOR INJ 1,000 ML IV SCH (10:00)
[2018-01-13] MEDS: [UNRECOGNIZED DRUG - OTHER] IV-CENTRAL SCH ×8 (11:08)
[2018-01-13] MEDS: SODIUM ACETATE IV-CENTRAL SCH ×8 (11:08)
[2018-01-13] MEDS: POTASSIUM CHLORIDE IV-CENTRAL SCH ×8 (11:08)
[2018-01-13 11:21] LABS: BILIRUBIN, URINE NEG (NEG); BLOOD, URINE NEG (NEG); GLUCOSE,URINE NEG (NEG); HYALINE CAST, URINE 3 /lpf (RARE); KETONE, URINE NEG (NEG); MUCUS URINE FEW /lpf (OCC); NITRITE,URINE NEG (NEG); URINE COLOR YELLOW (YELLW/STRAW); URINE LEUKOCYTE ESTERASE NEG (NEG)
--- NOTE | 2018-01-13 12:56 | HHI.NPPN ---
Subjective History of Present Illness 52-year-old male, Alcoholic hepatitis/cirrhosis received contrast study and acute renal failure Objective Data Data 01/13/18 01/14/18 19:00 07:00 Intake Total 441 ml Output Total 1250 ml Balance -809 ml IV Total 441 ml Output Urine Total 1250 ml Vital Signs Date Time Temp Pulse Resp B/P (MAP) Pulse Ox O2 Delivery O2 Flow Rate FiO2 01/13/18 12:00 35 01/13/18 12:00 98.2 93 23 140/92 (108) 100 01/13/18 12:00 93 01/13/18 11:25 100 35 01/13/18 10:30 35 01/13/18 10:00 86 01/13/18 08:00 35 01/13/18 08:00 80 01/13/18 08:00 98.0 80 24 138/72 (94) 100 01/13/18 07:53 100 Ventilator 35 01/13/18 07:53 100 35 01/13/18 07:53 35 01/13/18 06:00 75 01/13/18 04:00 72 01/13/18 04:00 35 01/13/18 04:00 98.4 72 18 119/63 (81) 97 01/13/18 03:44 98 35 01/13/18 02:00 74 01/13/18 00:00 73 01/13/18 00:00 98.2 73 18 118/62 (80) 100 01/13/18 00:00 35 01/12/18 23:46 97 35 01/12/18 22:00 77 01/12/18 20:00 35 01/12/18 20:00 79 01/12/18 20:00 98.4 79 20 151/72 (98) 100 01/12/18 19:21 100 35 01/12/18 18:00 78 01/12/18 16:00 80 01/12/18 16:00 35 01/12/18 16:00 99.2 80 18 153/78 (103) 80 01/12/18 14:57 100 35 01/12/18 14:00 85 -: 01/13/18 0426 01/13/18 0426 Microbiology 01/13/18 Aerobic Blood Culture, Received Pending 01/13/18 Anaerobic Blood Culture, Received Pending 01/13/18 Gram Stain, Received Pending 01/13/18 Sputum Culture, Received Pending Physical Exam General Appearance: Well Developed, Well Nourished Eyes Eye Exam: Jaundice Neck Neck Exam: Neck Supple Pulmonary Resp Exam: Clear Bilaterally, Diminished Breath Sounds Cardiology CV Exam: Regular, Normal Sinus Rhythm Gastrointestinal/Abdomen GI Exam: Soft, Distended Extremeties Extremities Exam: Moderate Edema Assessment/Plan Problem List: (1) Acute renal failure ICD Codes: N17.9 - Acute kidney failure, unspecified Plan: Patient has liver cirrhosis and possible hepatorenal syndrome is considered, unlikely as he is non oliguric. Some improvement in renal function. Replaced potassium. UOP 7.2 L Hypernatremia is noted. ADJUSTED sodium content of TPN: on Lasix 40 mg IV BID (2) Upper GI bleed ICD Codes: K92.2 - Gastrointestinal hemorrhage, unspecified Plan: GI is following (3) Alcoholic cirrhosis ICD Codes: K70.30 - Alcoholic cirrhosis of liver without ascites Plan: Followed by GI (4) Coagulopathy ICD Codes: D68.9 - Coagulation defect, unspecified Plan: Patient has received blood product, FFP and PRBCs (5) Ascites ICD Codes: R18.8 - Other ascites Plan: Due to alcoholic cirrhosis Problem Qualifiers (1) Acute renal failure: Qualified Codes: N17.9 - Acute kidney failure, unspecified (2) Alcoholic cirrhosis: Qualified Codes: K70.31 - Alcoholic cirrhosis of liver with ascites (3) Ascites: Qualified Codes: K70.31 - Alcoholic cirrhosis of liver with ascites Ciro Elder MD Jan 13, 2018 12:56
--- NOTE | 2018-01-13 15:09 | HHI.HCPN ---
Reason for visit a. To assist with evaluation and management of symptoms including: dyspnea, pain. b. To assist medical decision maker(s) with: better understanding of current medical conditions; weighing benefits/burdens of medical treatment options; making medical treatment decisions. . Subjective/Interval History Patient seen to follow-up today on comfort, updates to legal decision maker. Remains critically ill in ICU, on mechanical vent. Hepatic functions stable although no improvement. Bilirubin remains elevated at 16.5. Renal function stable although elevated BUN 54/creatinine 2.37. WBC trending up 18.7. Medrano cultures obtained today, pending. H&H stable over this past weekend 8.7/28.1 no further transfusions required. CXR yesterday = Diffuse consolidation likely related to edema which appears worse on the current exam Increased density at the left base related to denser consolidation or atelectasis. Some degree of left effusion may be contributing to this. Sedation has been weaned off, CPAP trials ongoing today plan for possible medical extubation if he continues to tolerate. Patient examined in room --he is alert, nods to some questions. Difficult to assess orientation as nods are intermittent and he is unable to further communicate. He does follow simple commands. Some tenderness with abdominal exam nods yes to pain. Other carpio unable to communicate further qualification/ quantification of pain. Discussed with critical care, primary nurse. Following exam call to patient . . Family/friend interactions Call to patient and current legal proxy, Yuliya. Updated her on current clinical assessment, recent diagnostics, pending diagnostics, CPAP trials and possible medical extubation. She has questions about overall prognosis going forward and possible trajectories if he is intubated. We did review at length the possibility that he may be medically extubate and tolerate being extubated he will continue to require supportive care for hepatic, renal issues and does remain at risk for ongoing complications and setbacks and still remains high risk for further decline and possibly reintubation. Review that alternatively he may not tolerate medical extubation and could require reintubation at some point, again which all other medical treatments would continue for underlying hepatic, renal issues. Review that upon his extubation we would attempt to explore with him his understanding of conditions and ability to make medical decisions, as well as try to assist him to complete healthcare surrogate designation if he is able to. In the event that he is not able to make his own decisions, and is unable to a point a healthcare surrogate then Yuliya would be called upon to answer reintubation status. Explore with her that patient could possibly require reintubation and that if that happen likely he would need a tracheostomy going forward to continue aggressive medical management. Alternatively explore that if reintubation was not desired by patient or decision-maker then comfort measures would be offered to ensure comfort and allow disease to follow a natural course without reintubation. She requests the medical team keep in touch with her in regards to his extubation, decision-making status and if she will need to address reintubation versus the patient making his own decisions. She also requests to know what the patient's mother thinks he would want in terms of reintubation or continued treatments etc. in his current state advised that I have not been able to speak with her recently. 1630--- Patient mother Debo later called me back in the afternoon. She indicates she has been updated by medical team members and voices appreciation for all of patient's ongoing nursing and medical care. She tells me she was calling me regarding patient estranged in decision-making. She expresses that she has no desire to communicate with patient and feels she should continue to visit as she has been, and patient can make whatever decisions , and that nursing or medical team members can advise mother and estranged of what ever any decisions might be but the mother does not wish to have any communication with estranged . I advised that we have been only telling her of patient's estranged request to speak with mother but we certainly are not in the role to force any type of family communication, advised that they can proceed as they have been in may continue to not communicate or communicate whatever their wishes may be. Mother also requests that when patient is possibly extubated and able to participate in decision-making that he be consulted to make his own preferences known advised that we would certainly plan to do this if patient is able to. She also requests that the patient be asked who he might want to make as a decision maker, advised that we would also plan to assist patient with this healthcare surrogate designation if he is able to do so. Mother again voices appreciation for the care he has been receiving ongoing. She is hopeful he might continue to improve. Advance Directives Living Will: Never completed Health Care Surrogate: Never completed Durable Power of Brokerage Coordinator: Never completed Advance Directive Specifics Health Care Surrogate(s): Documented care wishes: No written advanced directives. . Objective Vital Signs Date Time Temp Pulse Resp B/P (MAP) Pulse Ox O2 Delivery O2 Flow Rate FiO2 01/13/18 14:00 96 01/13/18 12:00 35 01/13/18 12:00 98.2 93 23 140/92 (108) 100 01/13/18 12:00 93 01/13/18 11:25 100 35 01/13/18 10:30 35 01/13/18 10:00 86 01/13/18 08:00 35 01/13/18 08:00 80 01/13/18 08:00 98.0 80 24 138/72 (94) 100 01/13/18 07:53 100 Ventilator 35 01/13/18 07:53 100 35 01/13/18 07:53 35 01/13/18 06:00 75 01/13/18 04:00 72 01/13/18 04:00 35 01/13/18 04:00 98.4 72 18 119/63 (81) 97 01/13/18 03:44 98 35 01/13/18 02:00 74 01/13/18 00:00 73 01/13/18 00:00 98.2 73 18 118/62 (80) 100 01/13/18 00:00 35 01/12/18 23:46 97 35 01/12/18 22:00 77 01/12/18 20:00 35 01/12/18 20:00 79 01/12/18 20:00 98.4 79 20 151/72 (98) 100 01/12/18 19:21 100 35 01/12/18 18:00 78 01/12/18 16:00 80 01/12/18 16:00 35 01/12/18 16:00 99.2 80 18 153/78 (103) 80 01/12/18 14:57 100 35 Intake & Output 01/13/18 01/13/18 07:00 19:00 Intake Total 951 ml Output Total 2600 ml 2400 ml Balance -2600 ml -1449 ml IV Total 951 ml Output Urine Total 2600 ml 2400 ml Drainage Total 0 ml # Bowel Movements 2 Physical Exam CONSTITUTIONAL/GENERAL: This is a critically ill, obese male, in no apparent distress. TUBES/LINES/DRAINS: ETT, Dobbhoff right nare, left jugular central line, PIV x 2 , abdominal pigtail catheter LLQ, wound drain bag LLQ, bilateral soft wrist restraints, Key, rectal tube, SCDs. SKIN: + jaundice. Ecchymoses on upper extremities. Skin warm/dry EYES: Pupils equal and round and reactive. + scleral icterus, slight scleral edema. No injection or drainage. Fundi not examined. ENT: Unable to assess hearing, Nose without bleeding or purulent drainage. Throat difficult to visualize due to tubes. CARDIOVASCULAR: Regular rate and rhythm without murmurs. RESPIRATORY/CHEST: On mech vent, respirations even/unlabored via ETT. Breath sounds equal and diminished bilaterally. GASTROINTESTINAL: Abdomen protuberant, distended, RLQ pigtail drain in place, + dark bloody drainage. NG tube clamped. Bowel sounds infrequent GENITOURINARY: Without palpable bladder distension. Key catheter in place dark orange/brown urine. MUSCULOSKELETAL: Lower extremities with pitting edema. Upper extremities with pitting edema NEUROLOGICAL: Does not open eyes to voice or exam, localizes/grimaces to pain. PSYCHIATRIC: sedated.no apparent anxiety/distress . Diagnostic Tests Laboratory Laboratory Tests Test 01/10/18 16:00 01/11/18 05:00 01/11/18 22:40 01/12/18 06:00 Hemoglobin 8.5 GM/DL (13.0-17.0) 8.4 GM/DL (13.0-17.0) 8.6 GM/DL (13.0-17.0) Potassium Level 3.6 MEQ/L (3.5-5.1) 3.1 MEQ/L (3.5-5.1) 3.5 MEQ/L (3.5-5.1) 3.4 MEQ/L (3.5-5.1) White Blood Count 9.5 TH/MM3 (4.0-11.0) 13.9 TH/MM3 (4.0-11.0) Red Blood Count 2.73 MIL/MM3 (4.50-5.90) 2.86 MIL/MM3 (4.50-5.90) Hematocrit 23.5 % (39.0-51.0) 25.0 % (39.0-51.0) Mean Corpuscular Volume 86.0 FL (80.0-100.0) 87.3 FL (80.0-100.0) Mean Corpuscular Hemoglobin 30.6 PG (27.0-34.0) 30.0 PG (27.0-34.0) Mean Corpuscular Hemoglobin Concent 35.6 % (32.0-36.0) 34.4 % (32.0-36.0) Red Cell Distribution Width 19.3 % (11.6-17.2) 19.6 % (11.6-17.2) Platelet Count 86 TH/MM3 (150-450) 116 TH/MM3 (150-450) Mean Platelet Volume 7.8 FL (7.0-11.0) 7.9 FL (7.0-11.0) Neutrophils (%) (Auto) 57.7 % (16.0-70.0) 65.3 % (16.0-70.0) Lymphocytes (%) (Auto) 29.4 % (9.0-44.0) 16.4 % (9.0-44.0) Monocytes (%) (Auto) 8.7 % (0.0-8.0) 12.8 % (0.0-8.0) Eosinophils (%) (Auto) 3.1 % (0.0-4.0) 3.3 % (0.0-4.0) Basophils (%) (Auto) 1.1 % (0.0-2.0) 2.2 % (0.0-2.0) Neutrophils # (Auto) 5.5 TH/MM3 (1.8-7.7) 9.1 TH/MM3 (1.8-7.7) Lymphocytes # (Auto) 2.8 TH/MM3 (1.0-4.8) 2.3 TH/MM3 (1.0-4.8) Monocytes # (Auto) 0.8 TH/MM3 (0-0.9) 1.8 TH/MM3 (0-0.9) Eosinophils # (Auto) 0.3 TH/MM3 (0-0.4) 0.5 TH/MM3 (0-0.4) Basophils # (Auto) 0.1 TH/MM3 (0-0.2) 0.3 TH/MM3 (0-0.2) CBC Comment AUTO DIFF DIFF FINAL Differential Total Cells Counted 100 Neutrophils % (Manual) 53 % (16-70) Band Neutrophils % 31 % (0-6) Lymphocytes % 7 % (9-44) Monocytes % 5 % (0-8) Eosinophils % 3 % (0-4) Basophils % 1 % (0-2) Neutrophils # (Manual) 8.0 TH/MM3 (1.8-7.7) Differential Comment FINAL DIFF MANUAL Toxic Granulation 1+ (NORMAL) Platelet Estimate LOW (NORMAL) Platelet Morphology Comment NORMAL (NORMAL) Target Cells 1+ (NORMAL) Tear Drop Cells 1+ (NORMAL) Nanda Cells 1+ (NORMAL) Acanthocytes OCC (NORMAL) Blood Urea Nitrogen 63 MG/DL (7-18) 56 MG/DL (7-18) Creatinine 2.45 MG/DL (0.60-1.30) 2.36 MG/DL (0.60-1.30) Random Glucose 113 MG/DL (74-106) 125 MG/DL (74-106) Total Protein 6.1 GM/DL (6.4-8.2) 6.2 GM/DL (6.4-8.2) Albumin 3.2 GM/DL (3.4-5.0) 3.0 GM/DL (3.4-5.0) Calcium Level 8.9 MG/DL (8.5-10.1) 8.6 MG/DL (8.5-10.1) Phosphorus Level 3.1 MG/DL (2.5-4.9) 3.2 MG/DL (2.5-4.9) Magnesium Level 2.1 MG/DL (1.5-2.5) 2.0 MG/DL (1.5-2.5) Alkaline Phosphatase 69 U/L (45-117) 80 U/L (45-117) Aspartate Amino Transf (AST/SGOT) 207 U/L (15-37) 206 U/L (15-37) Alanine Aminotransferase (ALT/SGPT) 77 U/L (12-78) 84 U/L (12-78) Total Bilirubin 15.1 MG/DL (0.2-1.0) 15.7 MG/DL (0.2-1.0) Sodium Level 147 MEQ/L (136-145) 150 MEQ/L (136-145) Chloride Level 108 MEQ/L (98-107) 111 MEQ/L (98-107) Carbon Dioxide Level 28.2 MEQ/L (21.0-32.0) 26.8 MEQ/L (21.0-32.0) Anion Gap 11 MEQ/L (5-15) 12 MEQ/L (5-15) Estimat Glomerular Filtration Rate 28 ML/MIN (>89) 29 ML/MIN (>89) Direct Bilirubin 11.5 MG/DL (0.0-0.2) Indirect Bilirubin 4.2 MG/DL (0.0-0.8) Test 01/12/18 07:25 01/13/18 04:26 01/13/18 09:58 Prothrombin Time 13.4 SEC (9.8-11.6) 14.0 SEC (9.8-11.6) Prothromb Time International Ratio 1.3 RATIO 1.4 RATIO Activated Partial Thromboplast Time 31.1 SEC (24.3-30.1) 34.3 SEC (24.3-30.1) Fibrinogen 311 mg/dL (227-377) 296 mg/dL (227-377) White Blood Count 18.7 TH/MM3 (4.0-11.0) Red Blood Count 2.99 MIL/MM3 (4.50-5.90) Hemoglobin 8.7 GM/DL (13.0-17.0) Hematocrit 26.1 % (39.0-51.0) Mean Corpuscular Volume 87.5 FL (80.0-100.0) Mean Corpuscular Hemoglobin 29.1 PG (27.0-34.0) Mean Corpuscular Hemoglobin Concent 33.2 % (32.0-36.0) Red Cell Distribution Width 20.0 % (11.6-17.2) Platelet Count 172 TH/MM3 (150-450) Mean Platelet Volume 8.2 FL (7.0-11.0) Neutrophils (%) (Auto) 71.7 % (16.0-70.0) Lymphocytes (%) (Auto) 12.2 % (9.0-44.0) Monocytes (%) (Auto) 11.4 % (0.0-8.0) Eosinophils (%) (Auto) 3.2 % (0.0-4.0) Basophils (%) (Auto) 1.5 % (0.0-2.0) Neutrophils # (Auto) 13.4 TH/MM3 (1.8-7.7) Lymphocytes # (Auto) 2.3 TH/MM3 (1.0-4.8) Monocytes # (Auto) 2.1 TH/MM3 (0-0.9) Eosinophils # (Auto) 0.6 TH/MM3 (0-0.4) Basophils # (Auto) 0.3 TH/MM3 (0-0.2) CBC Comment AUTO DIFF Differential Total Cells Counted 100 Neutrophils % (Manual) 57 % (16-70) Band Neutrophils % 22 % (0-6) Lymphocytes % 7 % (9-44) Monocytes % 7 % (0-8) Eosinophils % 4 % (0-4) Neutrophils # (Manual) 15.3 TH/MM3 (1.8-7.7) Metamyelocytes 3 % (0-1) Differential Comment FINAL DIFF MANUAL Platelet Estimate NORMAL (NORMAL) Platelet Morphology Comment NORMAL (NORMAL) Blood Urea Nitrogen 54 MG/DL (7-18) Creatinine 2.37 MG/DL (0.60-1.30) Random Glucose 99 MG/DL (74-106) Total Protein 6.5 GM/DL (6.4-8.2) Albumin 3.1 GM/DL (3.4-5.0) Calcium Level 9.7 MG/DL (8.5-10.1) Phosphorus Level 3.6 MG/DL (2.5-4.9) Magnesium Level 2.0 MG/DL (1.5-2.5) Alkaline Phosphatase 86 U/L (45-117) Aspartate Amino Transf (AST/SGOT) 214 U/L (15-37) Alanine Aminotransferase (ALT/SGPT) 92 U/L (12-78) Total Bilirubin 16.5 MG/DL (0.2-1.0) Sodium Level 148 MEQ/L (136-145) Potassium Level 3.4 MEQ/L (3.5-5.1) Chloride Level 108 MEQ/L (98-107) Carbon Dioxide Level 29.2 MEQ/L (21.0-32.0) Anion Gap 11 MEQ/L (5-15) Estimat Glomerular Filtration Rate 29 ML/MIN (>89) Ammonia 16 MCMOL/L (11-32) Urine Color YELLOW (YELLW/STRAW) Urine Turbidity CLEAR (CLEAR) Urine pH 5.0 (5.0-8.5) Urine Specific [place] 1.009 (1.002-1.035) Urine Protein NEG mg/dL (NEG-TRACE) Urine Glucose (UA) NEG mg/dL (NEG) Urine Ketones NEG mg/dL (NEG) Urine Occult Blood NEG (NEG) Urine Nitrite NEG (NEG) Urine Bilirubin NEG (NEG) Urine Urobilinogen LESS THAN 2.0 MG/DL (LESS Urine Leukocyte Esterase NEG (NEG) Urine RBC LESS THAN 1 /hpf (0-3) Urine WBC 1 /hpf (0-5) Urine Hyaline Casts 3 /lpf (RARE) Urine Mucus FEW /lpf (OCC) Microscopic Urinalysis Comment CATH-CULT NOT IND Result Diagram: 01/13/1842501/13/18 042 Microbiology Microbiology Date/Time Source Procedure Growth Status 01/13/18 10:00 Blood Other Aerobic Blood Culture Pending Received 01/13/18 10:00 Blood Other Anaerobic Blood Culture Pending Received 01/13/18 09:58 Sputum Endotracheal Gram Stain Pending Received 01/13/18 09:58 Sputum Endotracheal Sputum Culture Pending Received Imaging Last Impressions Chest X-Ray 01/12/18 0600 Signed Impressions: CONCLUSION: Diffuse consolidation likely related to edema which appears worse on the curren t exam. Increased density at the left base related to denser consolidation or atelectas is. Some degree of left effusion may be contributing to this. ET tube in a low position 1.3 cm from the antionette. Abdomen X-Ray 01/03/18 0600 Signed Impressions: CONCLUSION: No dilated bowel. Liver Ultrasound 12/31/17 0000 Signed Impressions: CONCLUSION: 1. Diffuse increased echogenicity throughout the liver suggestive of fatty inf iltration and/or hepatocellular disease. 2. Hepatomegaly. 3. Thickened gallbladder wall at 12 mm. No definite gallstones are seen. As ca n be seen with chronic gallbladder disease. Aorta CTA 12/28/17 0000 Signed Impressions: Service Date/Time: Thursday, December 28, 2017 21:00 - CONCLUSION: 1. Normal thoracic and abdominal aorta. No dissection/aneurysm seen. 2. Bibasilar consolidation and patchy densities in the upper lobes. 3. Hepatic steatosis with possible cirrhosis and moderate abdominal ascites. 4. Cholelithiasis. Aldair Francis MD Abdomen/Pelvis CT 5/18/18 1922 Signed Impressions: Service Date/Time: Wednesday, December 27, 2017 21:00 - CONCLUSION: 1. Diffusely abnormal liver likely secondary to hepatic steatosis and possible changes of cirrhosis. 2. Splenomegaly. This could be secondary to portal hypertension. 3. Moderate ascites. 4. Calcified gallstone. Stefan Grier MD Gall Bladder Ultrasound 12/27/17 0000 Signed Impressions: Service Date/Time: Wednesday, December 27, 2017 21:16 - CONCLUSION: 1. Diffusely abnormal liver secondary to cirrhosis and hepatic steatosis. 2. Gallbladder wall thickening. This is nonspecific. This can be seen with hepatic disease. It also can be seen with cholecystitis in the correct clinical situation. Gallstones were not demonstrated on the ultrasound examination but are clearly present on the CT examination. Stefan Grier MD Assessment and Plan Disease Oriented Problem List: (1) Probable sepsis (2) Abnormal INR (3) Alcoholic cirrhosis (4) Hyponatremia (5) Ascites (6) Acute renal failure (7) Upper GI bleed (8) Coagulopathy (9) Anemia requiring transfusions (10) Transaminitis (11) Hyperbilirubinemia Symptom Scale: (1) Pain 0-10 Scale: Unable to quantify (2) Dyspnea 0-10 Scale: Unable to quantify Pertinent Non-Medical Issues Psychosocial:Lives with his mother, Debo. Legally to estranged , Yuliya (lives in [place]). No children. Spiritual: Sikhism agustina. Osteopathic Neurologist requested. Legal:Patient is not capacitated to make his own health care decisions, uncertain if he will regain capacity. Mr. Cedillo has never completed written advanced directives. According to [place] Statues, medical proxy decision maker would fall to patient's spouse, Steph kirkland, Yuliya located Yuliya wishes to serve as legal proxy, though she does wish to involve pt Mother Debo in care/decisions, if Debo wishes to remain involved. Ethical issues impacting care: No known concerns at this time. . Important Contacts PROXY Yuliya Henderson, : [phone] (cell) Debo Henderson, mother: [phone] (cell), (home) . Prognosis Mr. 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 Overall prognosis is poor. . Code Status: No Code Plan * Patient is not capacitated to make his own health care decisions, uncertain if he will regain capacity. Mr. Cedillo has never completed written advanced directives. According to [place] Stat[place], medical proxy decision maker would fall to patient's spouse, no contact information. Google search conducted. [employer] resulted, Yuliya located and requests joint family meeting and medical update on 01/08/18 at 11am. Patient mother not present to participate in family meeting with patient today 01/08/18; patient Yuliya Henderson endorses she does wish to serve as healthcare proxy for this patient. Yuliya does also wish to involve patient mother with decision-making however at this time patient mother has expressed that she does not wish to speak with Yuliya. 01/13/18 patient may be medically extubated, he may be able to participate some in decision making, may be able to complete healthcare surrogate designation--if he is able to complete HCS this will clarify if he wishes his mother or his estranged Yuliya to make medical decisions for him going forward. * CODE STATUS : DNR/NO CODE -this will need to be readdressed once patient is medically extubated today. * GOALS: Goals remain aggressive, wishes to continue available treatments which may help patient in current condition. She requests the medical team keep in touch with her in regards to his extubation, decision-making status and if she will need to address reintubation versus the patient making his own decisions. She also requests to know what the patient's mother thinks he would want in terms of reintubation or continued treatments etc. in his current state advised that I have not been able to speak with her recently. * SYMPTOMS; pain: Some abdominal tenderness. Likely related to disease process. He does nod yes to pain though unable to further qualify or quantify due to intubation and limited communication. Avoiding sedating medications at this time due to pending medical extubation. May be able to further assess pain /discomfort once he is medically extubated. Patient unresponsive. Dyspnea: on mech vent, tolerating CPAP, plans for possible medical extubation later today. No new medication recommendations at this time. Reintubation status will need to be addressed with the patient or Yuliya, or designated healthcare surrogate if patient able to designated healthcare surrogate. * Palliative care will continue to follow throughout hospitalization to assist with clarification of medical treatment goals and symptom management as needed. . Time Spent Total Floor Time (mins): 40 (Chart review, exam, discussion with nursing, critical care, and proxy, and patient mother) Attestation To help prompt me to consider important information that might be impacting today's encounter and assessment, information from prior notes written by myself or my colleagues may have been "brought forward" into today's note. My signature on this note, however, is an attestation that I personally performed the exam, history, and/or decision-making noted today, and, unless otherwise indicated, the interactions with patient, family, and staff as well as the review of records all occurred today. I also attest that the listed assessment and stated plan reflect my best clinical judgment today based on the combination of historical information, prior notes, and today's exam/ interactions. When time spent is documented, it refers only to time spent today by the signer, or if indicated, combined time spent today by collaborating physician/nurse practitioner. Glo Morgan Jan 13, 2018 15:08
--- NOTE | 2018-01-13 17:07 | PD.PROCEDR ---
Central Line Procedure REASON FOR PROCEDURE Central venous access PROCEDURE PERFORMED Central line placement: Right IJ CVL CONSENT Informed consent for procedure was obtained. The risks and benefits of the procedure were discussed to include but limited to bleeding, clot formation, infection, and even . ANESTHESIA Local injection of 1% Lidocaine DESCRIPTION OF THE PROCEDURE The patient was placed in supine, mild Trendelenburg position. The area was exposed and cleansed with ChloraPrep, times two. Large sterile drape was used to cover the patient, with the site exposed, under sterile conditions including cap, face mask, sterile gown, and sterile gloves. On single attempt, the introducer needle was inserted with negative pressure in syringe and venous flash was obtained. The guide wire was then advanced without any restriction and the needle was removed. The dilator was used without any complications. Using Seldinger technique the antibiotic coated triple lumen catheter was advanced over the guide wire to a depth of 18 centimeters. The guide wire was removed. All ports were aspirated with dark venous blood return and flushed easily with sterile saline. All ports were capped. Antibiotic disc was placed around central line at puncture site. The central line was secured to the skin with two interrupted 2.0 silk sutures. The area was bandaged with sterile see- through central line bandage. RADIOLOGICAL DATA Ultrasound guidance was used to locate pending at time of dictation. Doppler/ color flow was used to confirm venous flow. COMPLICATIONS: No apparent complications ESTIMATED BLOOD LOSS: Less than 1 cc. Constantine Alvarado MD Jan 13, 2018 17:07
[2018-01-13] MEDS ORDERED: SODIUM CHLORIDE 0.9% FLUSH 10 ML FLUSH IV FLUSH PRN (17:15)
--- NOTE | 2018-01-13 17:24 | RADRPT ---
EXAM DATE: 01/13/2018 5:20 PM EDT AGE/SEX: 52 years / Male INDICATIONS: Evaluate central line placement CLINICAL DATA: This is the patient's subsequent encounter. Patient reports that signs and symptoms h ave been present for 4 - 6 days and indicates a pain score of Nonresponsive. MEDICAL/SURGICAL HISTORY: . Hypertension. Gastroesophageal reflux disease. Cirrhosis . Umbil ical hernia repair. COMPARISON: [facility], CHEST SINGLE AP, 01/12/2018. . FINDINGS: Right neck central line descends into SVC. There is no evidence of pneumothorax or other complication of placement. Left neck central line is stable. Endotracheal tube and feeding tube are present in sa tisfactory position. Aeration is slightly improved with decrease in confluence of basilar infiltrates . Cardiac contours are grossly unchanged. CONCLUSION: Satisfactory Central line positioning. Improving aeration. Electronically signed by: Stefan Lew MD 01/13/2018 5:22 PM EDT
[2018-01-13] MEDS: PANTOPRAZOLE SODIUM 40 MG VIAL IV PUSH SCH (20:11)
[2018-01-14] VITALS (18 sets, daily range): BP systolic 124–145; BP diastolic 63–69; PULSE 85–102; RESP 19–30; TEMP 98.2–99.9; O2SAT 99–100
[2018-01-14] MEDS: PIPERACIL-TAZO 2.25 GM PREMIX 50 ML IV SCH ×4 (02:13→21:13)
[2018-01-14] MEDS: RESP: ALBUTEROL 2.5 MG/IPRATROPIUM 0.5 MG NEB (SCH) NEB ×6 (03:33→23:17)
--- NOTE | 2018-01-14 03:56 | RADRPT ---
EXAM DATE: 01/14/2018 3:37 AM EDT AGE/SEX: 52 years / Male INDICATIONS: Respiratory failure. CLINICAL DATA: This is the patient's subsequent encounter. Patient reports that signs and symptoms h ave been present for 1 week and indicates a pain score of Nonresponsive. MEDICAL/SURGICAL HISTORY: Hypertension. Gastroesophageal reflux disease. Cirrhosis. Umbilical hernia repair. COMPARISON: [facility] [place], 01/13/2018. . FINDINGS: The support devices remain in place. There is some scattered patchy infiltrates in both lower lungs. No evidence of pneumothorax. Heart size is stable. The bony structures are stable. CONCLUSION: Scattered patchy infiltrates in both lung bases. Electronically signed by: Juvenal Bryant MD 01/14/2018 3:55 AM EDT
[2018-01-14] MEDS: INSULIN NovoLIN REGULAR SUPPLEMENTAL SCALE SQ SCH ×6 (04:00→20:00)
[2018-01-14] MEDS: CHLORHEXIDINE GLUCONATE 2 % 1 PACK (2 CLOTHS) TOP SCH (05:21)
[2018-01-14] MEDS: PENTOXIFYLLINE 400 MG CONTROLLED RELEASE TAB PO SCH ×3 (05:22→21:15)
[2018-01-14] MEDS: METOCLOPRAMIDE HCL 10 MG/2 ML VIAL IV PUSH SCH ×3 (05:22→21:15)
[2018-01-14] MEDS: ARTIFICIAL TEARS OPTH SOLN 15 ML BTL EACH EYE SCH ×3 (05:23→23:00)
[2018-01-14] MEDS: [UNRECOGNIZED DRUG - OTHER] IV-CENTRAL SCH ×8 (05:23)
[2018-01-14] MEDS: SODIUM ACETATE IV-CENTRAL SCH ×8 (05:23)
[2018-01-14] MEDS: POTASSIUM CHLORIDE IV-CENTRAL SCH ×8 (05:23)
[2018-01-14 06:14] LABS: HEMATOCRIT 27.1 % (39.0-51.0); HEMOGLOBIN 9.1 GM/DL (13.0-17.0); MEAN CELL VOLUME 88.2 FL (80.0-100.0); MEAN CORPUSCULAR HEMOGLOBIN 29.5 PG (27.0-34.0); MEAN CORPUSCULAR HGB CONC 33.5 % (32.0-36.0); MEAN PLATELET VOLUME 8.1 FL (7.0-11.0); PLATELET COUNT 197 TH/MM3 (150-450); RED BLOOD COUNT 3.08 MIL/MM3 (4.50-5.90); WHITE BLOOD COUNT 21.8 TH/MM3 (4.0-11.0)
[2018-01-14 06:22] LABS: INTERNATIONAL NORMALIZED RATIO 1.4 RATIO; PROTHROMBIN TIME - PATIENT 13.8 SEC (9.8-11.6)
[2018-01-14 06:36] LABS: ALT (GPT) 99 U/L (12-78)
[2018-01-14 06:42] LABS: ALKALINE PHOSPHATASE 100 U/L (45-117); AST (GOT) 228 U/L (15-37); BICARBONATE 28.6 MEQ/L (21.0-32.0); BLOOD UREA NITROGEN 51 MG/DL (7-18); CALCIUM 9.8 MG/DL (8.5-10.1); CHLORIDE 108 MEQ/L (98-107); CREATININE 2.25 MG/DL (0.60-1.30); GLOMERULAR FILTRATION RATE 31 ML/MIN (>89); GLUCOSE,RANDOM 127 MG/DL (74-106); MAGNESIUM 2.1 MG/DL (1.5-2.5); PHOSPHORUS 3.7 MG/DL (2.5-4.9); SODIUM (NA) 149 MEQ/L (136-145); TOTAL BILIRUBIN ADULT 18.2 MG/DL (0.2-1.0); TOTAL PROTEIN 6.5 GM/DL (6.4-8.2)
[2018-01-14] MEDS: CHLORHEXIDINE 0.12% (ORAL KIT) 15 ML CUP MT SCH ×2 (07:44→21:14)
[2018-01-14] MEDS: SODIUM CHLORIDE 0.9% FLUSH 10 ML FLUSH IV FLUSH SCH ×4 (08:03→21:14)
[2018-01-14] MEDS: PANTOPRAZOLE SODIUM 40 MG VIAL IV PUSH SCH ×2 (08:04→21:14)
[2018-01-14] MEDS: LACTULOSE SYRUP 20 GM/30 ML CUP PO SCH ×2 (08:05→21:15)
[2018-01-14] MEDS: FUROSEMIDE 40 MG/4 ML VIAL IV PUSH SCH ×2 (08:05→17:35)
[2018-01-14] MEDS: THIAMINE INJ 100 MG in SODIUM CHLORIDE 0.9% INJ 100 ML IV SCH (08:05)
[2018-01-14 09:16] LABS: BANDS 25 % (0-6); BASOPHILS 2 % (0-2); CORRECTED NUCLEATED RBC 1 /100 WBC (0-0); LYMPHOCYTES 11 % (9-44); METAMYELOCYTES 3 % (0-1); MONOCYTES 4 % (0-8); MYELOCYTES 4 % (0-0); NEUTROPHIL # MANUAL DIFF 17.2 TH/MM3 (1.8-7.7); NUCLEATED RED BLOOD CELL 1 (0-0); POLYS (SEG NEUTROPHILS) 47 % (16-70)
[2018-01-14 09:18] LABS: ACANTHOCYTES OCC (NORMAL)
--- NOTE | 2018-01-14 11:49 | HHI.CCPN ---
Subjective Remarks/Hospital Course Patient is a 52-year-old male with history of alcohol dependence, on chronic Coumadin for "abdominal vein thrombosis", history of hypertension who presented to the emergency department with complaints of increasing jaundice, increasing abdominal girth and vomiting jade blood multiple times over the last 2 days. Patient admits to being a heavy drinker he drinks about 1.75 L bottle hard liquor every 2 days. ER workup showed patient had a hemoglobin of 8.1, INR was 15.7. PTT 156.1, white count of 13.6 with 10% bands. Also sodium was noted to be 119, AST 439 ALT 115 and bilirubin of 7.6. A stat CT abdomen pelvis showed moderate ascites, probable cirrhosis and hepatic steatosis, splenomegaly, and gallstones. Patient had been ordered to receive 2 units of PRBC, and total 4 units of FFP. INR, Hb will be rechecked after this and additional FFP will be given accordingly. 10 mg vitamin K also ordered. Unfortunately hospital is out of [facility]. I evaluated the patient in the emergency department. He initially had an alcohol level of 135. At the time of my exam he is in moderate distress appears to be slightly tremulous. I have initiated CIWA protocol. I will also start its Rocephin for SBP prophylaxis. Patient had been started on IV Protonix infusion and octreotide which will be continued. Patient clinically also appears to have at least moderate ascites but I am unable to perform paracentesis due to elevated INR. 12/28: Currently resting in bed complaining of abdominal pain. Short of breath and tachypnea. Complaining of nausea currently. Remains on nasal cannula. Patient does not desire his mother's to have knowledge about his alcohol use. 12/29: Afebrile. Remains intubated post EGD yesterday due to worsening hypoxia. Currently on PSV trial 26/05 at 40%. Remains on dexmedetomidine drip and attempt to wean with alcohol use and likely progression to DTs. Banding of varices noted. Pentoxifylline 400 mg every 8 hours initiated with appropriate 12/30: Awake on dexmedetomidine drip at 1 mcg/kg/min. Following commands and attempting to write. Nods his head when states he feels the effects of alcohol withdrawals. Afebrile. Continues to leak from prior site of paracentesis. 12/31: Diminished urine output noted overnight. Increasing FiO2 requirement. Bladder pressures measured currently elevated around 25. Will place tube to suction and notify GI. Nephrology consult placed. Will need central line. 01/01: T-max 100. Currently 99. Meld score 34. Discriminant function is 34. Tamera alcohol scale score 7. Arousable the ventilator. FiO2 increased to 40- 60% overnight. 350 cc from NG tube overnight. 01/02: T-max 99.8. No bowel movement overnight. Abdomen remains distended. More ascites output from left lower quadrant previous paracentesis site. Arousable on the ventilator and follows commands on sedation vacation. Remains on PEEP of 12. FiO2 60%. 01/03: Patient remains intubated sedated very critical. FiO2 had to be increased to 70%. I have increase PEEP from 12-14. Chest x-ray remains unchanged. T-max 100.5. Urine output 1.3 L. BUN 42 creatinine 3.5 hemoglobin 7.4. Bedside ultrasound shows at least moderate ascites. Plan for thoracentesis for fluid removal and also will help with vent dynamic. 01/04: Persistent problems with oxygenation related to diffuse basilar atelectasis. Patient converted to airway pressure release ventilation this morning. Caloric intake probably on the high side in view of propofol infusion. Will reduce TPN to 60 cc/h. Enteral feedings at trickle rate. 01/05: Patient placed on APRV mode 01/04 with T-hi 5 sec Pres hi 30, with release volumes around 800 cc. Good oxygen saturation 30% FiO2. X-ray shows improvement in bilateral consolidation persistent left lower lobe infiltrate. Urine output 1.5 L also 1.5 L out from left paracentesis site. Transfuse 1 U PRBC 01/06: Remains critically ill but making some progress. Reduce PHigh to 26, T high to 4.5, if tolerated well, attempt to switch to PC/AC with PEEP 18-20 and rita iTime. Urine output adequate 2.3 L in 24 hours. Paracentesis site draining approximately 1.4 L despite paracentesis and removal of 3.5 L yesterday. Increase Lasix to 60 mg IV q6hr, Creat improved to 3.29 01/07: Oxygenation modestly improved with very aggressive mean airway pressures , continue PEEP 1820. Abdominal girth and ascites have conspired to reduce functional residual capacity. Now a permanent peritoneal drain is in place and we will attempt to make some progress with gas exchange. Between the intractable ascites, morbid obesity, and respiratory failure it will be very difficult to remove this patient from positive pressure ventilation. 01/08: ET tube has migrated above the vocal cords. Directly visualized with glide scope after receiving 40 mg etomidate. Cuff was deflated several times and advanced with adequate tidal volumes post advancement. Follow-up chest x- ray revealed adequate placement of ET tube. Remains on furosemide will change to drip today. 01/09: Afebrile. FiO2 down to 65%. Continues with profuse drainage from pigtail site. Not tolerating tube feeds. Hemoglobin 6.4 units PRBCs. Will transfuse 1 unit today. 01/10: FiO2 down to 40%. PEEP decreased to 12. Arousable on propofol and fentanyl drips and able to follow commands. Transfuse 1 additional unit PRBCs overnight hemoglobin currently 8.4. 01/11: T-max 99. PEEP decreased to 10. Continue to be aroused on propofol and fentanyl drips and follows commands. Hemoglobin stable 01/12: PEEP decreased from 10 - 8. Remains arousable on propofol and fentanyl drips and follows commands. Hemoglobin stable. A.m. labs from [facility] currently pending. 01/13: Afebrile. Currently awake and alert on the ventilator. Attempting CPAP trial 05/16 at 35%. No new issues overnight. Subjective 01/14: no improvements. awake on the ventilator. CAM-. capacitated. very weak. wbc continues to rise. MELD 29. overall very poor prognosis. had a discussion with the patient. he is too weak to write things down, but he can nod yes or no and give thumbs up/down. passed complete CAM-ICU assessment and not delirious. RASS 0 and oriented to person and place. difficult to assess time orientation. I explained his hospital course, along with all of the organ systems that were failing, and he nodded to express understanding. I told him that his ex- was legally still to him and legally his medical decision maker and she had been making healthcare decisions for him, and he expressed quite clearly that he did not want her to make decisions on his behalf. Palliative care was at bedside and confirmed this assessment. It is my assessment that the patient has full capacity to make decisions and to designate or un-designate healthcare surrogates. Objective Vital Signs Date Time Temp Pulse Resp B/P (MAP) Pulse Ox O2 Delivery O2 Flow Rate FiO2 01/14/18 10:00 94 01/14/18 08:00 98.6 26 124/63 (83) 100 01/14/18 08:00 35 01/14/18 07:51 Ventilator Intake and Output 01/14/18 01/14/18 01/15/18 08:00 16:00 00:00 Intake Total 50 ml 101 ml Output Total 2250 ml Balance -2200 ml 101 ml Result Diagram: 01/14/18 0550 01/14/18 0550 Imaging Last Impressions Chest X-Ray 01/12/18 06 Signed Impressions: CONCLUSION: Diffuse consolidation likely related to edema which appears worse on the curren t exam. Increased density at the left base related to denser consolidation or atelectas is. Some degree of left effusion may be contributing to this. ET tube in a low position 1.3 cm from the antionette. Abdomen X-Ray 01/03/18 06 Signed Impressions: CONCLUSION: No dilated bowel. Liver Ultrasound 12/31/17 0000 Signed Impressions: CONCLUSION: 1. Diffuse increased echogenicity throughout the liver suggestive of fatty inf iltration and/or hepatocellular disease. 2. Hepatomegaly. 3. Thickened gallbladder wall at 12 mm. No definite gallstones are seen. As ca n be seen with chronic gallbladder disease. Aorta CTA 12/28/17 0000 Signed Impressions: Service Date/Time: Thursday, December 28, 2017 21:00 - CONCLUSION: 1. Normal thoracic and abdominal aorta. No dissection/aneurysm seen. 2. Bibasilar consolidation and patchy densities in the upper lobes. 3. Hepatic steatosis with possible cirrhosis and moderate abdominal ascites. 4. Cholelithiasis. Aldair Francis MD Abdomen/Pelvis CT [id number] Signed Impressions: Service Date/Time: Wednesday, December 27, 2017 21:00 - CONCLUSION: 1. Diffusely abnormal liver likely secondary to hepatic steatosis and possible changes of cirrhosis. 2. Splenomegaly. This could be secondary to portal hypertension. 3. Moderate ascites. 4. Calcified gallstone. Stefan Grier MD Gall Bladder Ultrasound 12/27/17 0000 Signed Impressions: Service Date/Time: Wednesday, December 27, 2017 21:16 - CONCLUSION: 1. Diffusely abnormal liver secondary to cirrhosis and hepatic steatosis. 2. Gallbladder wall thickening. This is nonspecific. This can be seen with hepatic disease. It also can be seen with cholecystitis in the correct clinical situation. Gallstones were not demonstrated on the ultrasound examination but are clearly present on the CT examination. Stefan Grier MD Procedures Paracentesis EGD Objective Remarks GENERAL: 52-year-old male lying in bed orotracheally intubated SKIN: Warm and dry. Jaundiced HEAD: Atraumatic. Normocephalic. EYES: Pupils equal and round about 3 millimeters, positive for conjunctival icterus. ENT: No nasal bleeding or discharge. Mucous membranes dry and pink. Orotracheally intubated NECK: Trachea midline. Cannot appreciate JVD due to body habitus. right IJ is clean dry and intact CARDIOVASCULAR: Regular rate and rhythm. Without murmur RESPIRATORY:Breath sounds equal bilaterally, but reduced anteriorly and in bases. GASTROINTESTINAL: Abdomen distended abdomen nontender obese. There is drainage from bilateral flanks, previous paracentesis sites. MUSCULOSKELETAL: Extremities -bilateral lower extreme 1+ pitting edema NEUROLOGICAL: Awake on the ventilator and moving all 4 extremities spontaneously. Follows simple commands such as thumbs up with bilateral hands. No obvious cranial nerve deficits. Motor grossly within normal limits. A/P Assessment and Plan NEURO/PSYCH: Alcohol withdrawal Alcohol dependence On propofol drip for sedation while intubated with as needed fentanyl drip Dexmedetomidine drip for vent weaning ordered Supplement thiamine, folic acid and MVI with vitamin bag 3 days and switch to IV thiamine on 12/31. Continue while n.p.o. RESP: Acute hypoxemic respiratory failure Likely OHS, STAS Currently on CPAP trial 27/12 at 35%. failing weaning attempts as he becomes tachypneic with RSBI > 110. Ventilator bundle. Albuterol/ipratropium aerosols every 4 hours, albuterol aerosols every 2 hours as needed dyspnea Chest x-ray in 01/12-a worsening pulmonary edema/possible left lower lobe effusion. Actively diuresing with furosemide 40 mg IV twice daily CV: History of hypertension -Holding amlodipine 5 mg due to GI bleed and Spironolactone 50 mg p.o. daily -Systolic hypertension. As needed labetalol, Nitropaste and nicardipine drip to maintain systolic blood pressure less than 170 -Diuresis with furosemide per nephrology. Currently on furosemide 40 mg IV twice daily GI: Upper GI bleed secondary to esophageal varices Ascites/abdominal Liver cirrhosis/hepatic steatosis Cholelithiasis Elevated lipase Elevated ammonia Hypoalbuminemia/moderate protein calorie malnutrition EGD 12/28 revealed -esophageal varices/nipple midesophagus with 3 bands noted. Portal gastropathy. Hiatal hernia. Repeat EGD per GI Dobbhoff tube now on trickle feeds. TPN at 50 mL Pentoxifylline 400 mg every 8 hours. Change pantoprazole infusion at 8 mg an hour to 40 mg IV twice daily, discontinue octreotide infusion at 25 mcg/hr. Status post paracentesis 12/28-3 L. repeat paracentesis with 3.5L removed CT abdomen/pelvis revealed no sequelae of pancreatitis. CT aorta revealed no signs of dissection or leakage. Lactulose 30 every 12 hours for elevated ammonia/BM Continue metoclopramide 5 every 8. Having BM MELD score in a.m. 01/09 - . Similar findings since FEN//Endo: Hypopotassemia Hypernatremia -Monitor renal function closely. Sliding scale insulin Accu-Cheks with NovoLog/low regimen every 4 hours to maintain euglycemia 10 units insulin in TPN Adjusting TPN see orders ID: Probable sepsis Noted staph epi blood culture 12/31+ probable contamination Possible SBP -Klebsiella oxycota 01/07 Linezolid and piperacillin/tazobactam renally dosed. Discontinue linezolid 01/13 Repeat sputum cx 01/05 no growth wbc continues to rise, as well as LFTs. will obtain diagnostic peritoneal fluid with small needle to send for culture. Pertinent cultures 01/07 -peritoneal fluid -Klebsiella oxycota 12/31 -blood cultures 1 out of 4 staph epi. 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 Hb 8 INR 1.4 today. s/p 1 unit of PRBC 2017 and transfuse 3 units PRBCs 01/08. 2 unit PRBCs 01/09 -Serially monitor INR, phytonadione 5 mg given 12/31 and daily days -Hemoglobin level appear to have stabilized RENAL: Acute kidney injury- persistent, worsening. Possible hepatorenal syndrome Possible contrast nephropathy, vs HRS. Urine sodium 11. Urine creatinine elevated. Negative urine eosinophils. No hydronephrosis on CAT scan. Nephrology Dr. Elder. Furosemide 40 mg IV twice daily No hydronephrosis PROPH: -Bilateral lower extremity SCDs. IV pantoprazole infusion. Chemical DVT prophylaxis is contraindicated at this time LINES: -left IJ CVL placed 12/31, d/c 01/13 - right IJ CVL placed 01/14 OVERALL IMPRESSION: clinically declining. persistent sepsis and organ dysfunction. no improvements. unlikely to successfully separate from mechanical ventilation. will transition decision-making rights to mother as she is next legally. Woodrow Douglas MD Jan 14, 2018 11:49
--- NOTE | 2018-01-14 12:31 | HHI.HCPN ---
Reason for visit a. To assist with evaluation and management of symptoms including: dyspnea, pain. b. To assist medical decision maker(s) with: better understanding of current medical conditions; weighing benefits/burdens of medical treatment options; making medical treatment decisions. . Subjective/Interval History Patient seen to follow-up today on comfort, updates to legal decision maker. Notified by critical care pt alert, may be more able to participate in decision making, though remains on mech vent. WBC still uptrending. 21.8. H&H stable. BUN 51/creatinine 2.25. Bilirubin significantly elevated 18.2. Patient seen in room table visit with [facility] palliative [facility] [employer] social [employer]. Discussed with critical care, primary nurse. Following exam call to patient . D/w her at length current condition/ diagnostics. Review that pt may be able to make his own decisions. Review that if he is unable she would still need to make decisions RE trach/peg, continued aggressive tx versus possible deescalation. She affirms cont DNR status, will hope pt may be able to weigh in on decisions going forward. . Advance Directives Living Will: Never completed Health Care Surrogate: Never completed Durable Power of Candle Wrapper: Never completed Advance Directive Specifics Health Care Surrogate(s): Documented care wishes: No written advanced directives. . Objective Vital Signs Date Time Temp Pulse Resp B/P (MAP) Pulse Ox O2 Delivery O2 Flow Rate FiO2 01/14/18 12:07 100 35 01/14/18 10:00 94 01/14/18 08:00 98.6 93 26 124/63 (83) 100 01/14/18 08:00 93 01/14/18 08:00 35 01/14/18 07:51 99 35 01/14/18 07:51 100 Ventilator 35 01/14/18 07:51 35 01/14/18 06:00 88 01/14/18 04:00 88 01/14/18 04:00 35 01/14/18 04:00 98.9 86 19 137/67 (90) 100 01/14/18 03:34 99 35 01/14/18 02:00 85 01/14/18 00:00 86 01/14/18 00:00 98.9 86 19 141/68 (92) 100 01/14/18 00:00 35 01/13/18 23:17 100 35 01/13/18 22:00 85 01/13/18 20:00 89 01/13/18 20:00 99.0 89 19 144/71 (95) 100 01/13/18 20:00 35 01/13/18 19:35 100 35 01/13/18 18:00 91 01/13/18 16:00 98 01/13/18 16:00 35 01/13/18 16:00 98.2 98 19 137/70 (92) 96 01/13/18 15:56 99 35 01/13/18 14:00 96 Intake & Output 01/14/18 01/14/18 07:00 19:00 Intake Total 1100 ml 151 ml Output Total 2250 ml Balance -1150 ml 151 ml IV Total 1100 ml 151 ml Output Urine Total 1950 ml Stool Total 300 ml Drainage Total 0 ml Physical Exam CONSTITUTIONAL/GENERAL: This is a critically ill, obese male, in no apparent distress. TUBES/LINES/DRAINS: ETT, Dobbhoff right nare, left jugular central line, PIV x 2 , abdominal pigtail catheter LLQ, wound drain bag LLQ, bilateral soft wrist restraints, Key, rectal tube, SCDs. SKIN: + jaundice. Ecchymoses on upper extremities. Skin warm/dry EYES: Pupils equal and round and reactive. + scleral icterus, slight scleral edema. No injection or drainage. Fundi not examined. ENT: Unable to assess hearing, Nose without bleeding or purulent drainage. Throat difficult to visualize due to tubes. CARDIOVASCULAR: Regular rate and rhythm without murmurs. RESPIRATORY/CHEST: On mech vent, respirations even/unlabored via ETT. Breath sounds equal and diminished bilaterally. GASTROINTESTINAL: Abdomen protuberant, distended, RLQ pigtail drain in place, + dark bloody drainage. NG tube clamped. Bowel sounds infrequent GENITOURINARY: Without palpable bladder distension. Key catheter in place dark orange/brown urine. MUSCULOSKELETAL: Lower extremities with pitting edema. Upper extremities with pitting edema NEUROLOGICAL: Does not open eyes to voice or exam, localizes/grimaces to pain. PSYCHIATRIC: sedated.no apparent anxiety/distress . Diagnostic Tests Laboratory Laboratory Tests Test 01/11/18 22:40 01/12/18 06:00 01/12/18 07:25 01/13/18 04:26 Potassium Level 3.5 MEQ/L (3.5-5.1) 3.4 MEQ/L (3.5-5.1) 3.4 MEQ/L (3.5-5.1) White Blood Count 13.9 TH/MM3 (4.0-11.0) 18.7 TH/MM3 (4.0-11.0) Red Blood Count 2.86 MIL/MM3 (4.50-5.90) 2.99 MIL/MM3 (4.50-5.90) Hemoglobin 8.6 GM/DL (13.0-17.0) 8.7 GM/DL (13.0-17.0) Hematocrit 25.0 % (39.0-51.0) 26.1 % (39.0-51.0) Mean Corpuscular Volume 87.3 FL (80.0-100.0) 87.5 FL (80.0-100.0) Mean Corpuscular Hemoglobin 30.0 PG (27.0-34.0) 29.1 PG (27.0-34.0) Mean Corpuscular Hemoglobin Concent 34.4 % (32.0-36.0) 33.2 % (32.0-36.0) Red Cell Distribution Width 19.6 % (11.6-17.2) 20.0 % (11.6-17.2) Platelet Count 116 TH/MM3 (150-450) 172 TH/MM3 (150-450) Mean Platelet Volume 7.9 FL (7.0-11.0) 8.2 FL (7.0-11.0) Neutrophils (%) (Auto) 65.3 % (16.0-70.0) 71.7 % (16.0-70.0) Lymphocytes (%) (Auto) 16.4 % (9.0-44.0) 12.2 % (9.0-44.0) Monocytes (%) (Auto) 12.8 % (0.0-8.0) 11.4 % (0.0-8.0) Eosinophils (%) (Auto) 3.3 % (0.0-4.0) 3.2 % (0.0-4.0) Basophils (%) (Auto) 2.2 % (0.0-2.0) 1.5 % (0.0-2.0) Neutrophils # (Auto) 9.1 TH/MM3 (1.8-7.7) 13.4 TH/MM3 (1.8-7.7) Lymphocytes # (Auto) 2.3 TH/MM3 (1.0-4.8) 2.3 TH/MM3 (1.0-4.8) Monocytes # (Auto) 1.8 TH/MM3 (0-0.9) 2.1 TH/MM3 (0-0.9) Eosinophils # (Auto) 0.5 TH/MM3 (0-0.4) 0.6 TH/MM3 (0-0.4) Basophils # (Auto) 0.3 TH/MM3 (0-0.2) 0.3 TH/MM3 (0-0.2) CBC Comment DIFF FINAL AUTO DIFF Differential Comment FINAL DIFF MANUAL Blood Urea Nitrogen 56 MG/DL (7-18) 54 MG/DL (7-18) Creatinine 2.36 MG/DL (0.60-1.30) 2.37 MG/DL (0.60-1.30) Random Glucose 125 MG/DL (74-106) 99 MG/DL (74-106) Total Protein 6.2 GM/DL (6.4-8.2) 6.5 GM/DL (6.4-8.2) Albumin 3.0 GM/DL (3.4-5.0) 3.1 GM/DL (3.4-5.0) Calcium Level 8.6 MG/DL (8.5-10.1) 9.7 MG/DL (8.5-10.1) Phosphorus Level 3.2 MG/DL (2.5-4.9) 3.6 MG/DL (2.5-4.9) Magnesium Level 2.0 MG/DL (1.5-2.5) 2.0 MG/DL (1.5-2.5) Alkaline Phosphatase 80 U/L (45-117) 86 U/L (45-117) Aspartate Amino Transf (AST/SGOT) 206 U/L (15-37) 214 U/L (15-37) Alanine Aminotransferase (ALT/SGPT) 84 U/L (12-78) 92 U/L (12-78) Total Bilirubin 15.7 MG/DL (0.2-1.0) 16.5 MG/DL (0.2-1.0) Direct Bilirubin 11.5 MG/DL (0.0-0.2) Sodium Level 150 MEQ/L (136-145) 148 MEQ/L (136-145) Chloride Level 111 MEQ/L (98-107) 108 MEQ/L (98-107) Carbon Dioxide Level 26.8 MEQ/L (21.0-32.0) 29.2 MEQ/L (21.0-32.0) Anion Gap 12 MEQ/L (5-15) 11 MEQ/L (5-15) Estimat Glomerular Filtration Rate 29 ML/MIN (>89) 29 ML/MIN (>89) Indirect Bilirubin 4.2 MG/DL (0.0-0.8) Prothrombin Time 13.4 SEC (9.8-11.6) 14.0 SEC (9.8-11.6) Prothromb Time International Ratio 1.3 RATIO 1.4 RATIO Activated Partial Thromboplast Time 31.1 SEC (24.3-30.1) 34.3 SEC (24.3-30.1) Fibrinogen 311 mg/dL (227-377) 296 mg/dL (227-377) Differential Total Cells Counted 100 Neutrophils % (Manual) 57 % (16-70) Band Neutrophils % 22 % (0-6) Lymphocytes % 7 % (9-44) Monocytes % 7 % (0-8) Eosinophils % 4 % (0-4) Neutrophils # (Manual) 15.3 TH/MM3 (1.8-7.7) Metamyelocytes 3 % (0-1) Platelet Estimate NORMAL (NORMAL) Platelet Morphology Comment NORMAL (NORMAL) Ammonia 16 MCMOL/L (11-32) Test 01/13/18 09:58 01/14/18 05:50 Urine Color YELLOW (YELLW/STRAW) Urine Turbidity CLEAR (CLEAR) Urine pH 5.0 (5.0-8.5) Urine Specific [place] 1.009 (1.002-1.035) Urine Protein NEG mg/dL (NEG-TRACE) Urine Glucose (UA) NEG mg/dL (NEG) Urine Ketones NEG mg/dL (NEG) Urine Occult Blood NEG (NEG) Urine Nitrite NEG (NEG) Urine Bilirubin NEG (NEG) Urine Urobilinogen LESS THAN 2.0 MG/DL (LESS Urine Leukocyte Esterase NEG (NEG) Urine RBC LESS THAN 1 /hpf (0-3) Urine WBC 1 /hpf (0-5) Urine Hyaline Casts 3 /lpf (RARE) Urine Mucus FEW /lpf (OCC) Microscopic Urinalysis Comment CATH-CULT NOT IND White Blood Count 21.8 TH/MM3 (4.0-11.0) Red Blood Count 3.08 MIL/MM3 (4.50-5.90) Hemoglobin 9.1 GM/DL (13.0-17.0) Hematocrit 27.1 % (39.0-51.0) Mean Corpuscular Volume 88.2 FL (80.0-100.0) Mean Corpuscular Hemoglobin 29.5 PG (27.0-34.0) Mean Corpuscular Hemoglobin Concent 33.5 % (32.0-36.0) Red Cell Distribution Width 20.0 % (11.6-17.2) Platelet Count 197 TH/MM3 (150-450) Mean Platelet Volume 8.1 FL (7.0-11.0) CBC Comment AUTO DIFF Differential Total Cells Counted 100 Neutrophils % (Manual) 47 % (16-70) Band Neutrophils % 25 % (0-6) Lymphocytes % 11 % (9-44) Monocytes % 4 % (0-8) Eosinophils % 4 % (0-4) Basophils % 2 % (0-2) Neutrophils # (Manual) 17.2 TH/MM3 (1.8-7.7) Metamyelocytes 3 % (0-1) Myelocytes 4 % (0-0) Nucleated Red Blood Cells 1 /100 WBC (0-0) Differential Comment FINAL DIFF MANUAL Platelet Estimate NORMAL (NORMAL) Platelet Morphology Comment NORMAL (NORMAL) Acanthocytes OCC (NORMAL) Prothrombin Time 13.8 SEC (9.8-11.6) Prothromb Time International Ratio 1.4 RATIO Activated Partial Thromboplast Time 33.3 SEC (24.3-30.1) Fibrinogen 339 mg/dL (227-377) Blood Urea Nitrogen 51 MG/DL (7-18) Creatinine 2.25 MG/DL (0.60-1.30) Random Glucose 127 MG/DL (74-106) Total Protein 6.5 GM/DL (6.4-8.2) Albumin 3.0 GM/DL (3.4-5.0) Calcium Level 9.8 MG/DL (8.5-10.1) Phosphorus Level 3.7 MG/DL (2.5-4.9) Magnesium Level 2.1 MG/DL (1.5-2.5) Alkaline Phosphatase 100 U/L (45-117) Aspartate Amino Transf (AST/SGOT) 228 U/L (15-37) Alanine Aminotransferase (ALT/SGPT) 99 U/L (12-78) Lactate Dehydrogenase 253 U/L (87-241) Total Bilirubin 18.2 MG/DL (0.2-1.0) Sodium Level 149 MEQ/L (136-145) Potassium Level 3.3 MEQ/L (3.5-5.1) Chloride Level 108 MEQ/L (98-107) Carbon Dioxide Level 28.6 MEQ/L (21.0-32.0) Anion Gap 12 MEQ/L (5-15) Estimat Glomerular Filtration Rate 31 ML/MIN (>89) Ammonia 26 MCMOL/L (11-32) Amylase Level 71 U/L (25-115) Result Diagram: 01/14/18 0550 01/14/18 0550 Microbiology Microbiology Date/Time Source Procedure Growth Status 01/13/18 15:43 Blood Other Aerobic Blood Culture - Preliminary NO GROWTH IN 1 DAY Resulted 01/13/18 15:43 Blood Other Anaerobic Blood Culture - Preliminary NO GROWTH IN 1 DAY Resulted 01/13/18 10:00 Blood Other Aerobic Blood Culture - Preliminary NO GROWTH IN 1 DAY Resulted 01/13/18 10:00 Blood Other Anaerobic Blood Culture - Preliminary NO GROWTH IN 1 DAY Resulted 01/13/18 09:58 Sputum Endotracheal Gram Stain - Final Resulted 01/13/18 09:58 Sputum Endotracheal Sputum Culture Pending Resulted Assessment and Plan Disease Oriented Problem List: (1) Probable sepsis (2) Abnormal INR (3) Alcoholic cirrhosis (4) Hyponatremia (5) Ascites (6) Acute renal failure (7) Upper GI bleed (8) Coagulopathy (9) Anemia requiring transfusions (10) Transaminitis (11) Hyperbilirubinemia Symptom Scale: (1) Pain 0-10 Scale: Unable to quantify (2) Dyspnea 0-10 Scale: Unable to quantify Pertinent Non-Medical Issues Psychosocial:Lives with his mother, Debo. Legally to estranged , Yuliya (lives in [place]). No children. Spiritual: Mandaen agustina. Arbitrator requested. Legal:Patient is not capacitated to make his own health care decisions, uncertain if he will regain capacity. Mr. Cedillo has never completed written advanced directives. According to [place] Statues, medical proxy decision maker would fall to patient's spouse, [employer] resulted, Yuliya located Yuliya wishes to serve as legal proxy, though she does wish to involve pt Mother Debo in care/decisions, if Debo wishes to remain involved. Ethical issues impacting care: No known concerns at this time. . Important Contacts PROXY Yuliya Henderson, : [phone] (cell) Debo Henderson, mother: [phone] (cell), (home) . Prognosis Mr. 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 Overall prognosis is poor. . Code Status: No Code Plan * Patient is not capacitated to make his own health care decisions, uncertain if he will regain capacity. Mr. Cedillo has never completed written advanced directives. According to [place] Statues, medical proxy decision maker would fall to patient's spouse, no contact information. Google search conducted. [employer] resulted, Yuliya located and requests joint family meeting and medical update on 01/08/18 at 11am. Patient mother not present to participate in family meeting with patient today 01/08/18; patient Yuliya Henderson endorses she does wish to serve as healthcare proxy for this patient. Yuliya does also wish to involve patient mother with decision-making however at this time patient mother has expressed that she does not wish to speak with Yuliya. 01/13/18 patient may be medically extubated, he may be able to participate some in decision making, may be able to complete healthcare surrogate designation--if he is able to complete HCS this will clarify if he wishes his mother or his estranged Yuliya to make medical decisions for him going forward. * CODE STATUS : DNR/NO CODE -this will need to be readdressed once patient is medically extubated today. * GOALS: Goals remain aggressive, wishes to continue available treatments which may help patient in current condition. She requests the medical team keep in touch with her in regards to his extubation, decision-making status and if she will need to address reintubation versus the patient making his own decisions. She also requests to know what the patient's mother thinks he would want in terms of reintubation or continued treatments etc. in his current state advised that I have not been able to speak with her recently. * SYMPTOMS; pain: Some abdominal tenderness. Likely related to disease process. He does nod yes to pain though unable to further qualify or quantify due to intubation and limited communication. Avoiding sedating medications at this time due to pending medical extubation. May be able to further assess pain /discomfort once he is medically extubated. Patient unresponsive. Dyspnea: on mech vent, tolerating CPAP, plans for possible medical extubation later today. No new medication recommendations at this time. Reintubation status will need to be addressed with the patient or Yuliya, or designated healthcare surrogate if patient able to designated healthcare surrogate. * Palliative care will continue to follow throughout hospitalization to assist with clarification of medical treatment goals and symptom management as needed. . Time Spent Total Floor Time (mins): 30 (chart review, PE, d/w , d/w nursing , critical care) Attestation To help prompt me to consider important information that might be impacting today's encounter and assessment, information from prior notes written by myself or my colleagues may have been "brought forward" into today's note. My signature on this note, however, is an attestation that I personally performed the exam, history, and/or decision-making noted today, and, unless otherwise indicated, the interactions with patient, family, and staff as well as the review of records all occurred today. I also attest that the listed assessment and stated plan reflect my best clinical judgment today based on the combination of historical information, prior notes, and today's exam/ interactions. When time spent is documented, it refers only to time spent today by the signer, or if indicated, combined time spent today by collaborating physician/nurse practitioner. Glo Morgan Jan 14, 2018 12:31
[2018-01-14] MEDS: POTASSIUM CHLOR 40 MEQ PREMIX 100 ML IV SCH ×2 (13:15→17:15)
--- NOTE | 2018-01-14 13:35 | HHI.HCPN ---
Reason for visit a. To assist with evaluation and management of symptoms including: dyspnea, pain. b. To assist medical decision maker(s) with: better understanding of current medical conditions; weighing benefits/burdens of medical treatment options; making medical treatment decisions. . Subjective/Interval History Patient seen to follow-up today on comfort, updates to legal decision maker. Notified by critical care pt alert, may be more able to participate in decision making, though remains on mech vent. WBC continues to up trend 21.8. Blood cultures pending. H&H stable. No signs of active bleeding. Potassium 3.3, repletion per critical care protocol. BUN and creatinine remain elevated 51/2.25. Bilirubin trending up 18.2. Patient had been tolerating CPAP however critical care concerned that he has not tolerated decrease of PEEP and pressure support and would be highly likely to require reintubation. He also has been having increased abdominal distention. Patient seen in room, primary nurse Ann present for part of interaction, as well as palliative care social work therapist Roro DAVIS. He is alert, nods appropriately to some yes/no questions such as are you in the hospital, is grass green,etc. he nods yes to pain though was unable to point or further qualify. Attempts to mouth words though I am unable to understand. Attempt to help him utilize letter board but he is very weak and unable to clearly points at specific letters. Further asked yes/no questions explore with him that since he has been acutely ill his has been serving as legal proxy per [place] statutes, he furrows his brow at this. Ask him if he would want his to continue to make decisions for him he strongly nods his head no. Advised that we would need to know who he would trust to make decisions he weakly shrugs his shoulders and does not nod yes or no. Ask him if he has been living with his mother Debo, he nods yes. Ask him if he would want his mother Debo to make decisions for him he weakly shrugs shoulders. Request he nods yes or no to indicate if he would want his mother to assist with making medical decisions he again shrugs his shoulders. Advise him that if he does not want his to make decisions that per statutes it would fall to his mother. He again shrugs, attempts to mouth words. Attempts to explore with him that he remains critically ill and may require tracheostomy, PEG tube if he is stable enough to do so, ask him if he understands what a tracheostomy as he does not nod yes or no. Ask him if he would want a surgically placed tracheostomy he does not nod yes or no. Mildly tachypneic. Not clear if he does not want to answer or does not want to further discuss at this point and did conversation with him. Verbal wishes form completed with palliative care social work therapist, with Dr. Willams, primary nurse, myself, and social work therapist witnessing. Discussed with critical care, primary nurse. Following exam call to patient -updated that she will no longer be proxy. Attempted to reach patient mother Debo , I tried both the house #, the cell number no answer. . Family/friend interactions Call to update Yuliya on interactions with pt today- updated her on his alertness/limited communications, and that he did NOT wish for further information to be given to his estranged Yuliya. Advise that going forward would not be providing additional information to her, and that per [place] statutes mother would be next for decision making (PROXY). Yuliya request that pt mother update her on pt condition if it declines, or if he dies, so that she will know , as she is still legally to him. . Advance Directives Living Will: Never completed Health Care Surrogate: Never completed Durable Power of Facing Slitter: Never completed Advance Directive Specifics Health Care Surrogate(s): Documented care wishes: No written advanced directives. . Significant change in goals: 01/14/18 patient has indicated via nodding and gesturing that he does not want his (estranged) to serve as proxy decision maker. By [place] statutes proxy decision making would then fall to his mother, he will not indicate further either way if he wishes or does not wish for his mother to serve. Objective Vital Signs Date Time Temp Pulse Resp B/P (MAP) Pulse Ox O2 Delivery O2 Flow Rate FiO2 01/14/18 12:07 100 35 01/14/18 10:00 94 01/14/18 08:00 98.6 93 26 124/63 (83) 100 01/14/18 08:00 93 01/14/18 08:00 35 01/14/18 07:51 99 35 01/14/18 07:51 100 Ventilator 35 01/14/18 07:51 35 01/14/18 06:00 88 01/14/18 04:00 88 01/14/18 04:00 35 01/14/18 04:00 98.9 86 19 137/67 (90) 100 01/14/18 03:34 99 35 01/14/18 02:00 85 01/14/18 00:00 86 01/14/18 00:00 98.9 86 19 141/68 (92) 100 01/14/18 00:00 35 01/13/18 23:17 100 35 01/13/18 22:00 85 01/13/18 20:00 89 01/13/18 20:00 99.0 89 19 144/71 (95) 100 01/13/18 20:00 35 01/13/18 19:35 100 35 01/13/18 18:00 91 01/13/18 16:00 98 01/13/18 16:00 35 01/13/18 16:00 98.2 98 19 137/70 (92) 96 01/13/18 15:56 99 35 01/13/18 14:00 96 Intake & Output 01/14/18 01/14/18 07:00 19:00 Intake Total 1100 ml 151 ml Output Total 2250 ml Balance -1150 ml 151 ml IV Total 1100 ml 151 ml Output Urine Total 1950 ml Stool Total 300 ml Drainage Total 0 ml Physical Exam CONSTITUTIONAL/GENERAL: This is a critically ill, obese male, in no apparent distress. TUBES/LINES/DRAINS: ETT, Dobbhoff right nare, left jugular central line, PIV x 2 , abdominal pigtail catheter LLQ, wound drain bag LLQ, bilateral soft wrist restraints, Key, rectal tube, SCDs. SKIN: + jaundice. Ecchymoses on upper extremities. Skin warm/dry EYES: Pupils equal and round and reactive. + scleral icterus, slight scleral edema. No injection or drainage. Fundi not examined. ENT: Nose without bleeding or purulent drainage. Throat difficult to visualize due to tubes. CARDIOVASCULAR: Regular rate and rhythm without murmurs. 2-3+ general edema RESPIRATORY/CHEST: On mech vent, respirations even/unlabored via ETT, cpap. tachypneic at times during conversation. Scattered rhonchi. Breath sounds equal and diminished bilaterally. GASTROINTESTINAL: Abdomen protuberant, distended, slightly firm, RLQ pigtail drain in place, + dark bloody drainage. NG tube clamped. Bowel sounds infrequent GENITOURINARY: Without palpable bladder distension. Key catheter in place dark orange/brown urine. MUSCULOSKELETAL: Lower extremities with pitting edema. Upper extremities with pitting edema NEUROLOGICAL: alert, nods to some yes/no questions . follows simple commands-- moves all 4 extremities to commands. PSYCHIATRIC: mildly tachypneic/anxious at times. . Diagnostic Tests Laboratory Laboratory Tests Test 01/11/18 22:40 01/12/18 06:00 01/12/18 07:25 01/13/18 04:26 Potassium Level 3.5 MEQ/L (3.5-5.1) 3.4 MEQ/L (3.5-5.1) 3.4 MEQ/L (3.5-5.1) White Blood Count 13.9 TH/MM3 (4.0-11.0) 18.7 TH/MM3 (4.0-11.0) Red Blood Count 2.86 MIL/MM3 (4.50-5.90) 2.99 MIL/MM3 (4.50-5.90) Hemoglobin 8.6 GM/DL (13.0-17.0) 8.7 GM/DL (13.0-17.0) Hematocrit 25.0 % (39.0-51.0) 26.1 % (39.0-51.0) Mean Corpuscular Volume 87.3 FL (80.0-100.0) 87.5 FL (80.0-100.0) Mean Corpuscular Hemoglobin 30.0 PG (27.0-34.0) 29.1 PG (27.0-34.0) Mean Corpuscular Hemoglobin Concent 34.4 % (32.0-36.0) 33.2 % (32.0-36.0) Red Cell Distribution Width 19.6 % (11.6-17.2) 20.0 % (11.6-17.2) Platelet Count 116 TH/MM3 (150-450) 172 TH/MM3 (150-450) Mean Platelet Volume 7.9 FL (7.0-11.0) 8.2 FL (7.0-11.0) Neutrophils (%) (Auto) 65.3 % (16.0-70.0) 71.7 % (16.0-70.0) Lymphocytes (%) (Auto) 16.4 % (9.0-44.0) 12.2 % (9.0-44.0) Monocytes (%) (Auto) 12.8 % (0.0-8.0) 11.4 % (0.0-8.0) Eosinophils (%) (Auto) 3.3 % (0.0-4.0) 3.2 % (0.0-4.0) Basophils (%) (Auto) 2.2 % (0.0-2.0) 1.5 % (0.0-2.0) Neutrophils # (Auto) 9.1 TH/MM3 (1.8-7.7) 13.4 TH/MM3 (1.8-7.7) Lymphocytes # (Auto) 2.3 TH/MM3 (1.0-4.8) 2.3 TH/MM3 (1.0-4.8) Monocytes # (Auto) 1.8 TH/MM3 (0-0.9) 2.1 TH/MM3 (0-0.9) Eosinophils # (Auto) 0.5 TH/MM3 (0-0.4) 0.6 TH/MM3 (0-0.4) Basophils # (Auto) 0.3 TH/MM3 (0-0.2) 0.3 TH/MM3 (0-0.2) CBC Comment DIFF FINAL AUTO DIFF Differential Comment FINAL DIFF MANUAL Blood Urea Nitrogen 56 MG/DL (7-18) 54 MG/DL (7-18) Creatinine 2.36 MG/DL (0.60-1.30) 2.37 MG/DL (0.60-1.30) Random Glucose 125 MG/DL (74-106) 99 MG/DL (74-106) Total Protein 6.2 GM/DL (6.4-8.2) 6.5 GM/DL (6.4-8.2) Albumin 3.0 GM/DL (3.4-5.0) 3.1 GM/DL (3.4-5.0) Calcium Level 8.6 MG/DL (8.5-10.1) 9.7 MG/DL (8.5-10.1) Phosphorus Level 3.2 MG/DL (2.5-4.9) 3.6 MG/DL (2.5-4.9) Magnesium Level 2.0 MG/DL (1.5-2.5) 2.0 MG/DL (1.5-2.5) Alkaline Phosphatase 80 U/L (45-117) 86 U/L (45-117) Aspartate Amino Transf (AST/SGOT) 206 U/L (15-37) 214 U/L (15-37) Alanine Aminotransferase (ALT/SGPT) 84 U/L (12-78) 92 U/L (12-78) Total Bilirubin 15.7 MG/DL (0.2-1.0) 16.5 MG/DL (0.2-1.0) Direct Bilirubin 11.5 MG/DL (0.0-0.2) Sodium Level 150 MEQ/L (136-145) 148 MEQ/L (136-145) Chloride Level 111 MEQ/L (98-107) 108 MEQ/L (98-107) Carbon Dioxide Level 26.8 MEQ/L (21.0-32.0) 29.2 MEQ/L (21.0-32.0) Anion Gap 12 MEQ/L (5-15) 11 MEQ/L (5-15) Estimat Glomerular Filtration Rate 29 ML/MIN (>89) 29 ML/MIN (>89) Indirect Bilirubin 4.2 MG/DL (0.0-0.8) Prothrombin Time 13.4 SEC (9.8-11.6) 14.0 SEC (9.8-11.6) Prothromb Time International Ratio 1.3 RATIO 1.4 RATIO Activated Partial Thromboplast Time 31.1 SEC (24.3-30.1) 34.3 SEC (24.3-30.1) Fibrinogen 311 mg/dL (227-377) 296 mg/dL (227-377) Differential Total Cells Counted 100 Neutrophils % (Manual) 57 % (16-70) Band Neutrophils % 22 % (0-6) Lymphocytes % 7 % (9-44) Monocytes % 7 % (0-8) Eosinophils % 4 % (0-4) Neutrophils # (Manual) 15.3 TH/MM3 (1.8-7.7) Metamyelocytes 3 % (0-1) Platelet Estimate NORMAL (NORMAL) Platelet Morphology Comment NORMAL (NORMAL) Ammonia 16 MCMOL/L (11-32) Test 01/13/18 09:58 01/14/18 05:50 Urine Color YELLOW (YELLW/STRAW) Urine Turbidity CLEAR (CLEAR) Urine pH 5.0 (5.0-8.5) Urine Specific [place] 1.009 (1.002-1.035) Urine Protein NEG mg/dL (NEG-TRACE) Urine Glucose (UA) NEG mg/dL (NEG) Urine Ketones NEG mg/dL (NEG) Urine Occult Blood NEG (NEG) Urine Nitrite NEG (NEG) Urine Bilirubin NEG (NEG) Urine Urobilinogen LESS THAN 2.0 MG/DL (LESS Urine Leukocyte Esterase NEG (NEG) Urine RBC LESS THAN 1 /hpf (0-3) Urine WBC 1 /hpf (0-5) Urine Hyaline Casts 3 /lpf (RARE) Urine Mucus FEW /lpf (OCC) Microscopic Urinalysis Comment CATH-CULT NOT IND White Blood Count 21.8 TH/MM3 (4.0-11.0) Red Blood Count 3.08 MIL/MM3 (4.50-5.90) Hemoglobin 9.1 GM/DL (13.0-17.0) Hematocrit 27.1 % (39.0-51.0) Mean Corpuscular Volume 88.2 FL (80.0-100.0) Mean Corpuscular Hemoglobin 29.5 PG (27.0-34.0) Mean Corpuscular Hemoglobin Concent 33.5 % (32.0-36.0) Red Cell Distribution Width 20.0 % (11.6-17.2) Platelet Count 197 TH/MM3 (150-450) Mean Platelet Volume 8.1 FL (7.0-11.0) CBC Comment AUTO DIFF Differential Total Cells Counted 100 Neutrophils % (Manual) 47 % (16-70) Band Neutrophils % 25 % (0-6) Lymphocytes % 11 % (9-44) Monocytes % 4 % (0-8) Eosinophils % 4 % (0-4) Basophils % 2 % (0-2) Neutrophils # (Manual) 17.2 TH/MM3 (1.8-7.7) Metamyelocytes 3 % (0-1) Myelocytes 4 % (0-0) Nucleated Red Blood Cells 1 /100 WBC (0-0) Differential Comment FINAL DIFF MANUAL Platelet Estimate NORMAL (NORMAL) Platelet Morphology Comment NORMAL (NORMAL) Acanthocytes OCC (NORMAL) Prothrombin Time 13.8 SEC (9.8-11.6) Prothromb Time International Ratio 1.4 RATIO Activated Partial Thromboplast Time 33.3 SEC (24.3-30.1) Fibrinogen 339 mg/dL (227-377) Blood Urea Nitrogen 51 MG/DL (7-18) Creatinine 2.25 MG/DL (0.60-1.30) Random Glucose 127 MG/DL (74-106) Total Protein 6.5 GM/DL (6.4-8.2) Albumin 3.0 GM/DL (3.4-5.0) Calcium Level 9.8 MG/DL (8.5-10.1) Phosphorus Level 3.7 MG/DL (2.5-4.9) Magnesium Level 2.1 MG/DL (1.5-2.5) Alkaline Phosphatase 100 U/L (45-117) Aspartate Amino Transf (AST/SGOT) 228 U/L (15-37) Alanine Aminotransferase (ALT/SGPT) 99 U/L (12-78) Lactate Dehydrogenase 253 U/L (87-241) Total Bilirubin 18.2 MG/DL (0.2-1.0) Sodium Level 149 MEQ/L (136-145) Potassium Level 3.3 MEQ/L (3.5-5.1) Chloride Level 108 MEQ/L (98-107) Carbon Dioxide Level 28.6 MEQ/L (21.0-32.0) Anion Gap 12 MEQ/L (5-15) Estimat Glomerular Filtration Rate 31 ML/MIN (>89) Ammonia 26 MCMOL/L (11-32) Amylase Level 71 U/L (25-115) Result Diagram: 01/14/18 0550 01/14/18 0550 Microbiology Microbiology Date/Time Source Procedure Growth Status 01/13/18 15:43 Blood Other Aerobic Blood Culture - Preliminary NO GROWTH IN 1 DAY Resulted 01/13/18 15:43 Blood Other Anaerobic Blood Culture - Preliminary NO GROWTH IN 1 DAY Resulted 01/13/18 10:00 Blood Other Aerobic Blood Culture - Preliminary NO GROWTH IN 1 DAY Resulted 01/13/18 10:00 Blood Other Anaerobic Blood Culture - Preliminary NO GROWTH IN 1 DAY Resulted 01/13/18 09:58 Sputum Endotracheal Gram Stain - Final Resulted 01/13/18 09:58 Sputum Endotracheal Sputum Culture Pending Resulted Imaging Last Impressions Chest X-Ray 01/14/18599 Signed Impressions: CONCLUSION: Scattered patchy infiltrates in both lung bases. Abdomen X-Ray 01/03/18599 Signed Impressions: CONCLUSION: No dilated bowel. Liver Ultrasound 12/31/17 0000 Signed Impressions: CONCLUSION: 1. Diffuse increased echogenicity throughout the liver suggestive of fatty inf iltration and/or hepatocellular disease. 2. Hepatomegaly. 3. Thickened gallbladder wall at 12 mm. No definite gallstones are seen. As ca n be seen with chronic gallbladder disease. Aorta CTA 12/28/17 0000 Signed Impressions: Service Date/Time: Thursday, December 28, 2017 21:00 - CONCLUSION: 1. Normal thoracic and abdominal aorta. No dissection/aneurysm seen. 2. Bibasilar consolidation and patchy densities in the upper lobes. 3. Hepatic steatosis with possible cirrhosis and moderate abdominal ascites. 4. Cholelithiasis. Aldair Francis MD Abdomen/Pelvis CT 12/27/171921 Signed Impressions: Service Date/Time: Wednesday, December 27, 2017 21:00 - CONCLUSION: 1. Diffusely abnormal liver likely secondary to hepatic steatosis and possible changes of cirrhosis. 2. Splenomegaly. This could be secondary to portal hypertension. 3. Moderate ascites. 4. Calcified gallstone. Stefan Grier MD Gall Bladder Ultrasound 12/27/17 Signed Impressions: Service Date/Time: Wednesday, December 27, 2017 21:16 - CONCLUSION: 1. Diffusely abnormal liver secondary to cirrhosis and hepatic steatosis. 2. Gallbladder wall thickening. This is nonspecific. This can be seen with hepatic disease. It also can be seen with cholecystitis in the correct clinical situation. Gallstones were not demonstrated on the ultrasound examination but are clearly present on the CT examination. Stefan Grier MD Assessment and Plan Disease Oriented Problem List: (1) Probable sepsis (2) Abnormal INR (3) Alcoholic cirrhosis (4) Hyponatremia (5) Ascites (6) Acute renal failure (7) Upper GI bleed (8) Coagulopathy (9) Anemia requiring transfusions (10) Transaminitis (11) Hyperbilirubinemia Symptom Scale: (1) Pain 0-10 Scale: Unable to quantify (2) Dyspnea 0-10 Scale: Unable to quantify Pertinent Non-Medical Issues Psychosocial:Lives with his mother, Debo. Legally to estranged , Yuliya (lives in [place]). No children. Spiritual: Sabianism agustina. Family Protection Specialist requested. Legal:Patient is not capacitated to make his own health care decisions, uncertain if he will regain capacity. Mr. Cedillo has never completed written advanced directives. According to [place] Statues, medical proxy decision maker would fall to patient's spouse, [employer] resulted, Yuliya located Yuliya wishes to serve as legal proxy, though she does wish to involve pt Mother Debo in care/decisions, if Debo wishes to remain involved. Ethical issues impacting care: No known concerns at this time. . Important Contacts Debo Henderson, mother, PROXY as of 01/14/18 : [phone] (cell), ( home) No longer PROXY as 01/14/18 per pt request , Yuliya Henderson, : [phone] (cell) . Prognosis Mr. 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 Overall prognosis is poor. . Code Status: No Code Plan * Patient is not capacitated to make his own health care decisions, uncertain if he will regain capacity. Mr. Cedillo has never completed written advanced directives. According to [place] Statues, medical proxy decision maker would fall to patient's spouse, patient Yuliya Henderson endorses she does wish to serve as healthcare proxy for this patient. Yuliya does also wish to involve patient mother with decision-making however at this time patient mother has expressed that she does not wish to speak with Yuliya. 01/14/18 patient able to communicate some via nodding and gesturing; he indicates he does not wish for his Yuliya to continue to get updates or service decision-maker. He is not able to indicate who he would want to make decisions, by [place] statutes proxy decision making would then fall to his mother if he has been able to express he does not want to be his estranged legal . * CODE STATUS : DNR/NO CODE * GOALS: proxy now pt mother. pt will require trach/PEG when able/stable enough for. He is not able to indicate his wishes for/against. Will need to further clarify with his mother Debo, attempted to reach her today. The possibility of needing a trach, PEG possibly this week has previously been discussed with patient and patient mother. * SYMPTOMS; pain: Some abdominal tenderness. Likely related to disease process. He does nod yes to pain though unable to further qualify or quantify due to intubation and limited communication. Avoiding sedating medications at this time due to pending medical extubation. Dyspnea: on mech vent, tolerating CPAP, though felt would likely require reintubation if extubated due to multiple organ dysfunction, body habitus. No new medication recommendations at this time. * Palliative care will continue to follow throughout hospitalization to assist with clarification of medical treatment goals and symptom management as needed. . Time Spent Total Floor Time (mins): 35 (Chart review, PE, discussion with patient, discussion with primary nurse, discussion with critical care, discussion with /former proxy) Attestation To help prompt me to consider important information that might be impacting today's encounter and assessment, information from prior notes written by myself or my colleagues may have been "brought forward" into today's note. My signature on this note, however, is an attestation that I personally performed the exam, history, and/or decision-making noted today, and, unless otherwise indicated, the interactions with patient, family, and staff as well as the review of records all occurred today. I also attest that the listed assessment and stated plan reflect my best clinical judgment today based on the combination of historical information, prior notes, and today's exam/ interactions. When time spent is documented, it refers only to time spent today by the signer, or if indicated, combined time spent today by collaborating physician/nurse practitioner. Glo Morgan Jan 14, 2018 13:35
--- NOTE | 2018-01-14 14:29 | HHI.NPPN ---
Subjective History of Present Illness 52-year-old male, Alcoholic hepatitis/cirrhosis received contrast study and acute renal failure Objective Data Data 01/14/18 01/15/18 19:00 07:00 Intake Total 551 ml Balance 551 ml IV Total 551 ml Vital Signs Date Time Temp Pulse Resp B/P (MAP) Pulse Ox O2 Delivery O2 Flow Rate FiO2 01/14/18 12:07 100 35 01/14/18 12:00 35 01/14/18 12:00 98.2 97 24 128/68 (88) 100 01/14/18 12:00 97 01/14/18 10:00 94 01/14/18 08:00 98.6 93 26 124/63 (83) 100 01/14/18 08:00 93 01/14/18 08:00 35 01/14/18 07:51 99 35 01/14/18 07:51 100 Ventilator 35 01/14/18 07:51 35 01/14/18 06:00 88 01/14/18 04:00 88 01/14/18 04:00 35 01/14/18 04:00 98.9 86 19 137/67 (90) 100 01/14/18 03:34 99 35 01/14/18 02:00 85 01/14/18 00:00 86 01/14/18 00:00 98.9 86 19 141/68 (92) 100 01/14/18 00:00 35 01/13/18 23:17 100 35 01/13/18 22:00 85 01/13/18 20:00 89 01/13/18 20:00 99.0 89 19 144/71 (95) 100 01/13/18 20:00 35 01/13/18 19:35 100 35 01/13/18 18:00 91 01/13/18 16:00 98 01/13/18 16:00 35 01/13/18 16:00 98.2 98 19 137/70 (92) 96 01/13/18 15:56 99 35 -: 01/14/18 0550 01/14/18 0550 Microbiology 01/13/18 Aerobic Blood Culture - Preliminary, Resulted NO GROWTH IN 1 DAY 01/13/18 Anaerobic Blood Culture - Preliminary, Resulted NO GROWTH IN 1 DAY Physical Exam General Appearance: Well Developed, Well Nourished Eyes Eye Exam: Jaundice Neck Neck Exam: Neck Supple Pulmonary Resp Exam: Clear Bilaterally, Diminished Breath Sounds Cardiology CV Exam: Regular, Normal Sinus Rhythm Gastrointestinal/Abdomen GI Exam: Soft, Distended Extremeties Extremities Exam: Moderate Edema Assessment/Plan Problem List: (1) Acute renal failure ICD Codes: N17.9 - Acute kidney failure, unspecified Plan: Patient has liver cirrhosis and possible hepatorenal syndrome is considered, unlikely as he is non oliguric. Some improvement in renal function. CR 2.25 Replaced potassium. UOP 4.9 L Hypernatremia is noted. on Lasix 40 mg IV BID (2) Upper GI bleed ICD Codes: K92.2 - Gastrointestinal hemorrhage, unspecified Plan: GI is following (3) Alcoholic cirrhosis ICD Codes: K70.30 - Alcoholic cirrhosis of liver without ascites Plan: Followed by GI (4) Coagulopathy ICD Codes: D68.9 - Coagulation defect, unspecified Plan: Patient has received blood product, FFP and PRBCs (5) Ascites ICD Codes: R18.8 - Other ascites Plan: Due to alcoholic cirrhosis Problem Qualifiers (1) Acute renal failure: Qualified Codes: N17.9 - Acute kidney failure, unspecified (2) Alcoholic cirrhosis: Qualified Codes: K70.31 - Alcoholic cirrhosis of liver with ascites (3) Ascites: Qualified Codes: K70.31 - Alcoholic cirrhosis of liver with ascites Ciro Elder MD Jan 14, 2018 14:29
--- NOTE | 2018-01-14 14:31 | HHI.HCSW ---
Director Of Guidance Visit Cognitive Functioning Mr. Henderson is more awake. Able to answer questions appropriately although very weak and difficult to understand words he attempts to mouth. He is able to nod his head yes and no when asked questions. Unable to determine ability to process and have insight into more complex questions. When asked about his serving as a support to make medical decisions on his behalf he clearly shakes his head no. Also shakes his head no to having any more medical information. Clearly indicates he wishes to proceed with aggressive care at this time. Also met with patient and mother at bedside a little later. Mr. Henderson clearly indicates all of the above again during this visit. . Significant Family/Friend No family/friends at bedside during initial visit. Later mother at bedside. Updated her of conversation above. . Advance Directive Dual visit with palliative care DENA Morgan. Exhibit A- Verbal Advanced Directive completed. Mr. Henderson clearly indicates he does not want his , Yuliya, to be involved in making medical decisions on his behalf. He also indicates he does not wish for her to have any medical information moving forward. Conversation and Exhibit witnessed by myself, DENA Gutiérrez, RN, and Dr. Douglas. Provided mother a copy of written advanced directives, Exhibit A. Per [place] Statues, medical proxy decision making falls to patient's mother, Debo, as patient has indicated he does not wish for her Yuliya to be involved in medical decisions. . Follow Up Visit Palliative care will continue to follow throughout hospitalization. Ashley Willams, MANAGER CRITICAL CARE UNIT Jan 14, 2018 14:31
--- NOTE | 2018-01-14 16:38 | PD.WCN.NOT ---
Wound Consult Description: Consult for WOUND MANAGEMENT of right inner buttock per protocol NACHO/Dr Douglas Communicated with: RN Recommendation: Strict 2 hour turns. Apply Calazime to Partial Thickness Skin Loss on Right buttock BID and PRN for moisture. Additional Information: Patient seen on for wound evaluation of right buttock. Patient was repositioned to his right side for assessment for better visualization states RN. Right buttock is noted with a jagged and linear, discolored friable area of wrinkled, mostly intact tissue measuring ~4cm x 0.5cm x 0cm with an opening visualized distally within this area measuring ~0.1cm x 0.1cm x <0.1cm of 100% red non granulating tissue with no drainage and no odor indicating a moisture/ friction etiology. Sacrum, coccyx and left buttock are unremarkable. Recommend to apply Calazime skin protectant paste BID and PRN and continue to reposition patient every 2 hours and prn for comfort. Livia Thompson [facility] Jan 14, 2018 16:38
--- NOTE | 2018-01-14 19:14 | PD.PROCEDR ---
Procedure Note Procedure Diagnostic paracentesis Procedure Note Diagnosis: Sepsis, end-stage liver disease Indications: Sepsis of unclear source with end-stage liver disease and severe ascites Consent: Emergent Anesthesia: None Description of the Procedure: The patient was placed in the supine position. The area of largest fluid collection was marked pre-procedure using ultrasound guidance. The area was prepped and draped sterilely. A 25g spinal needle was advanced under negative pressure aspiration until fluid was obtained. At the conclusion of the procedure, the needle was removed and a dressing was applied. There were no immediate complications noted. There was minimal EBL. The patient tolerated the procedure well. Findings: Nonpurulent icteric appearing ascitic fluid. I personally performed the procedure. Woodrow Douglas MD Jan 14, 2018 19:14
[2018-01-14] MEDS ORDERED: POTASSIUM CHLORIDE IV-CENTRAL SCH ×8 (20:00)
[2018-01-14] MEDS ORDERED: [UNRECOGNIZED DRUG - OTHER] IV-CENTRAL SCH ×8 (20:00)
[2018-01-14] MEDS ORDERED: SODIUM ACETATE IV-CENTRAL SCH ×8 (20:00)
[2018-01-15] VITALS (18 sets, daily range): BP systolic 115–137; BP diastolic 58–66; PULSE 90–100; RESP 18–31; TEMP 98.6–100.1; O2SAT 93–100
[2018-01-15] MEDS: PROPOFOL 1000 MG/100 ML INJ 100 ML IV PRN ×2 (02:25→21:00)
[2018-01-15] MEDS: PIPERACIL-TAZO 2.25 GM PREMIX 50 ML IV SCH ×4 (02:42→21:37)
[2018-01-15] MEDS: RESP: ALBUTEROL 2.5 MG/IPRATROPIUM 0.5 MG NEB (SCH) NEB ×6 (03:17→23:40)
[2018-01-15] MEDS: INSULIN NovoLIN REGULAR SUPPLEMENTAL SCALE SQ SCH ×6 (04:00→20:00)
[2018-01-15] MEDS: CHLORHEXIDINE GLUCONATE 2 % 1 PACK (2 CLOTHS) TOP SCH ×2 (04:00→21:42)
[2018-01-15 05:11] LABS: INTERNATIONAL NORMALIZED RATIO 1.4 RATIO; PROTHROMBIN TIME - PATIENT 14.5 SEC (9.8-11.6)
[2018-01-15 05:18] LABS: ALT (GPT) 99 U/L (12-78)
[2018-01-15 05:19] LABS: AUTOMATED NEUTROPHIL # 14.3 TH/MM3 (1.8-7.7); BASOPHIL # 0.3 TH/MM3 (0-0.2); BASOPHIL % 1.5 % (0.0-2.0); EOSINOPHIL # 0.4 TH/MM3 (0-0.4); EOSINOPHIL % 1.8 % (0.0-4.0); HEMATOCRIT 26.9 % (39.0-51.0); HEMOGLOBIN 8.9 GM/DL (13.0-17.0); LYMPH % 13.3 % (9.0-44.0); LYMPHOCYTE # 2.6 TH/MM3 (1.0-4.8); MEAN CORPUSCULAR HEMOGLOBIN 29.4 PG (27.0-34.0); MEAN PLATELET VOLUME 8.2 FL (7.0-11.0); MONO % 9.4 % (0.0-8.0); MONOCYTE # 1.8 TH/MM3 (0-0.9); PLATELET COUNT 204 TH/MM3 (150-450); RED BLOOD COUNT 3.02 MIL/MM3 (4.50-5.90); RED CELL DISTRIBUTION WIDTH 19.9 % (11.6-17.2); WHITE BLOOD COUNT 19.3 TH/MM3 (4.0-11.0)
[2018-01-15 05:20] LABS: ALKALINE PHOSPHATASE 109 U/L (45-117); TOTAL BILIRUBIN ADULT 20.1 MG/DL (0.2-1.0); TOTAL PROTEIN 6.7 GM/DL (6.4-8.2)
[2018-01-15 05:24] LABS: ALBUMIN 2.9 GM/DL (3.4-5.0); AST (GOT) 231 U/L (15-37); BLOOD UREA NITROGEN 51 MG/DL (7-18); CALCIUM 9.8 MG/DL (8.5-10.1); CHLORIDE 110 MEQ/L (98-107); CREATININE 2.48 MG/DL (0.60-1.30); GLOMERULAR FILTRATION RATE 28 ML/MIN (>89); GLUCOSE,RANDOM 123 MG/DL (74-106); SODIUM (NA) 150 MEQ/L (136-145)
[2018-01-15] MEDS: METOCLOPRAMIDE HCL 10 MG/2 ML VIAL IV PUSH SCH ×3 (05:49→21:40)
[2018-01-15] MEDS: PENTOXIFYLLINE 400 MG CONTROLLED RELEASE TAB PO SCH ×4 (05:51→22:00)
[2018-01-15] MEDS: ARTIFICIAL TEARS OPTH SOLN 15 ML BTL EACH EYE SCH ×3 (07:07→21:40)
--- NOTE | 2018-01-15 08:09 | HHI.CCPN ---
Subjective Remarks/Hospital Course Patient is a 52-year-old male with history of alcohol dependence, on chronic Coumadin for "abdominal vein thrombosis", history of hypertension who presented to the emergency department with complaints of increasing jaundice, increasing abdominal girth and vomiting jade blood multiple times over the last 2 days. Patient admits to being a heavy drinker he drinks about 1.75 L bottle hard liquor every 2 days. ER workup showed patient had a hemoglobin of 8.1, INR was 15.7. PTT 156.1, white count of 13.6 with 10% bands. Also sodium was noted to be 119, AST 439 ALT 115 and bilirubin of 7.6. A stat CT abdomen pelvis showed moderate ascites, probable cirrhosis and hepatic steatosis, splenomegaly, and gallstones. Patient had been ordered to receive 2 units of PRBC, and total 4 units of FFP. INR, Hb will be rechecked after this and additional FFP will be given accordingly. 10 mg vitamin K also ordered. Unfortunately hospital is out of [facility]. I evaluated the patient in the emergency department. He initially had an alcohol level of 135. At the time of my exam he is in moderate distress appears to be slightly tremulous. I have initiated CIWA protocol. I will also start its Rocephin for SBP prophylaxis. Patient had been started on IV Protonix infusion and octreotide which will be continued. Patient clinically also appears to have at least moderate ascites but I am unable to perform paracentesis due to elevated INR. 12/28: Currently resting in bed complaining of abdominal pain. Short of breath and tachypnea. Complaining of nausea currently. Remains on nasal cannula. Patient does not desire his mother's to have knowledge about his alcohol use. 12/29: Afebrile. Remains intubated post EGD yesterday due to worsening hypoxia. Currently on PSV trial 26/05 at 40%. Remains on dexmedetomidine drip and attempt to wean with alcohol use and likely progression to DTs. Banding of varices noted. Pentoxifylline 400 mg every 8 hours initiated with appropriate 12/30: Awake on dexmedetomidine drip at 1 mcg/kg/min. Following commands and attempting to write. Nods his head when states he feels the effects of alcohol withdrawals. Afebrile. Continues to leak from prior site of paracentesis. 12/31: Diminished urine output noted overnight. Increasing FiO2 requirement. Bladder pressures measured currently elevated around 25. Will place tube to suction and notify GI. Nephrology consult placed. Will need central line. 01/01: T-max 100. Currently 99. Meld score 34. Discriminant function is 34. Tamera alcohol scale score 7. Arousable the ventilator. FiO2 increased to 40- 60% overnight. 350 cc from NG tube overnight. 01/02: T-max 99.8. No bowel movement overnight. Abdomen remains distended. More ascites output from left lower quadrant previous paracentesis site. Arousable on the ventilator and follows commands on sedation vacation. Remains on PEEP of 12. FiO2 60%. 01/03: Patient remains intubated sedated very critical. FiO2 had to be increased to 70%. I have increase PEEP from 12-14. Chest x-ray remains unchanged. T-max 100.5. Urine output 1.3 L. BUN 42 creatinine 3.5 hemoglobin 7.4. Bedside ultrasound shows at least moderate ascites. Plan for thoracentesis for fluid removal and also will help with vent dynamic. 01/04: Persistent problems with oxygenation related to diffuse basilar atelectasis. Patient converted to airway pressure release ventilation this morning. Caloric intake probably on the high side in view of propofol infusion. Will reduce TPN to 60 cc/h. Enteral feedings at trickle rate. 01/05: Patient placed on APRV mode 01/04 with T-hi 5 sec Pres hi 30, with release volumes around 800 cc. Good oxygen saturation 30% FiO2. X-ray shows improvement in bilateral consolidation persistent left lower lobe infiltrate. Urine output 1.5 L also 1.5 L out from left paracentesis site. Transfuse 1 U PRBC 01/06: Remains critically ill but making some progress. Reduce PHigh to 26, T high to 4.5, if tolerated well, attempt to switch to PC/AC with PEEP 18-20 and rita iTime. Urine output adequate 2.3 L in 24 hours. Paracentesis site draining approximately 1.4 L despite paracentesis and removal of 3.5 L yesterday. Increase Lasix to 60 mg IV q6hr, Creat improved to 3.29 01/07: Oxygenation modestly improved with very aggressive mean airway pressures , continue PEEP 1820. Abdominal girth and ascites have conspired to reduce functional residual capacity. Now a permanent peritoneal drain is in place and we will attempt to make some progress with gas exchange. Between the intractable ascites, morbid obesity, and respiratory failure it will be very difficult to remove this patient from positive pressure ventilation. 01/08: ET tube has migrated above the vocal cords. Directly visualized with glide scope after receiving 40 mg etomidate. Cuff was deflated several times and advanced with adequate tidal volumes post advancement. Follow-up chest x- ray revealed adequate placement of ET tube. Remains on furosemide will change to drip today. 01/09: Afebrile. FiO2 down to 65%. Continues with profuse drainage from pigtail site. Not tolerating tube feeds. Hemoglobin 6.4 units PRBCs. Will transfuse 1 unit today. 01/10: FiO2 down to 40%. PEEP decreased to 12. Arousable on propofol and fentanyl drips and able to follow commands. Transfuse 1 additional unit PRBCs overnight hemoglobin currently 8.4. 01/11: T-max 99. PEEP decreased to 10. Continue to be aroused on propofol and fentanyl drips and follows commands. Hemoglobin stable 01/12: PEEP decreased from 10 - 8. Remains arousable on propofol and fentanyl drips and follows commands. Hemoglobin stable. A.m. labs from [facility] currently pending. 01/13: Afebrile. Currently awake and alert on the ventilator. Attempting CPAP trial 05/16 at 35%. No new issues overnight. 01/14: no improvements. awake on the ventilator. CAM-. capacitated. very weak. wbc continues to rise. MELD 29. overall very poor prognosis. had a discussion with the patient. he is too weak to write things down, but he can nod yes or no and give thumbs up/down. passed complete CAM-ICU assessment and not delirious. RASS 0 and oriented to person and place. difficult to assess time orientation. I explained his hospital course, along with all of the organ systems that were failing, and he nodded to express understanding. I told him that his ex- was legally still to him and legally his medical decision maker and she had been making healthcare decisions for him, and he expressed quite clearly that he did not want her to make decisions on his behalf. Palliative care was at bedside and confirmed this assessment. It is my assessment that the patient has full capacity to make decisions and to designate or un-designate healthcare surrogates. Subjective 01/15: T-max 99.9/also Tcurrent. Tolerated CPAP trial 12 hours yesterday however failed weaning parameters with high RSBI. Tube feeds have not been initiated. Positive BM 1. Continues with very slow drainage from prior pigtail catheter placed for abdominal ascites. Currently denying pain Objective Vital Signs Date Time Temp Pulse Resp B/P (MAP) Pulse Ox O2 Delivery O2 Flow Rate FiO2 01/15/18 07:37 100 35 01/15/18 06:00 96 01/15/18 04:00 99.9 20 124/58 (80) 01/14/18 07:51 Ventilator Intake and Output 01/15/18 01/15/18 01/16/18 08:00 16:00 00:00 Intake Total 200 ml Output Total 1600 ml Balance -1400 ml Result Diagram: 01/15/18 0430 01/15/18 0430 Other Results Microbiology Date/Time Source Procedure Growth Status 01/13/18 15:43 Blood Other Aerobic Blood Culture - Preliminary NO GROWTH IN 1 DAY Resulted 01/13/18 15:43 Blood Other Anaerobic Blood Culture - Preliminary NO GROWTH IN 1 DAY Resulted 01/14/18 18:10 Fluid Peritoneal Fluid Gram Stain Pending Received 01/14/18 18:10 Fluid Peritoneal Fluid Body Fluid Culture Pending Received 01/13/18 09:58 Sputum Endotracheal Gram Stain - Final Resulted 01/13/18 09:58 Sputum Endotracheal Sputum Culture - Preliminary HEAVY GROWTH NORMAL RESPIRATORY AISHWARYA... Resulted 12/30/17 08:45 Urine Catheterized Urine Urine Culture - Final NO GROWTH IN 48 HOURS. Complete Imaging Last Impressions Chest X-Ray 01/14/18 06 Signed Impressions: CONCLUSION: Scattered patchy infiltrates in both lung bases. Abdomen X-Ray 01/03/18 0600 Signed Impressions: CONCLUSION: No dilated bowel. Liver Ultrasound 12/31/17 0000 Signed Impressions: CONCLUSION: 1. Diffuse increased echogenicity throughout the liver suggestive of fatty inf iltration and/or hepatocellular disease. 2. Hepatomegaly. 3. Thickened gallbladder wall at 12 mm. No definite gallstones are seen. As ca n be seen with chronic gallbladder disease. Aorta CTA 12/28/17 0000 Signed Impressions: Service Date/Time: Thursday, December 28, 2017 21:00 - CONCLUSION: 1. Normal thoracic and abdominal aorta. No dissection/aneurysm seen. 2. Bibasilar consolidation and patchy densities in the upper lobes. 3. Hepatic steatosis with possible cirrhosis and moderate abdominal ascites. 4. Cholelithiasis. Aldair Francis MD Abdomen/Pelvis CT 12/27/17 192 Signed Impressions: Service Date/Time: Wednesday, December 27, 2017 21:00 - CONCLUSION: 1. Diffusely abnormal liver likely secondary to hepatic steatosis and possible changes of cirrhosis. 2. Splenomegaly. This could be secondary to portal hypertension. 3. Moderate ascites. 4. Calcified gallstone. Stefan Grier MD Gall Bladder Ultrasound 12/27/17 0000 Signed Impressions: Service Date/Time: Wednesday, December 27, 2017 21:16 - CONCLUSION: 1. Diffusely abnormal liver secondary to cirrhosis and hepatic steatosis. 2. Gallbladder wall thickening. This is nonspecific. This can be seen with hepatic disease. It also can be seen with cholecystitis in the correct clinical situation. Gallstones were not demonstrated on the ultrasound examination but are clearly present on the CT examination. Stefan Grier MD Procedures Paracentesis EGD Objective Remarks GENERAL: 52-year-old male lying in bed orotracheally intubated SKIN: Warm and dry. Jaundiced HEAD: Atraumatic. Normocephalic. EYES: Pupils equal and round about 3 millimeters, positive for conjunctival icterus. ENT: No nasal bleeding or discharge. Mucous membranes dry and pink. Orotracheally intubated NECK: Trachea midline. Cannot appreciate JVD due to body habitus. right IJ is clean dry and intact CARDIOVASCULAR: Regular rate and rhythm. Without murmur RESPIRATORY:Breath sounds equal bilaterally, but reduced anteriorly and in bases. GASTROINTESTINAL: Abdomen distended abdomen nontender obese. There is drainage from bilateral flanks, previous paracentesis sites. MUSCULOSKELETAL: Extremities -bilateral lower extreme 1+ pitting edema NEUROLOGICAL: Awake on the ventilator and moving all 4 extremities spontaneously. Follows simple commands such as thumbs up with bilateral hands. No obvious cranial nerve deficits. Motor grossly within normal limits. Urinary Catheter: Yes Assessment to: Continue Key insert reason: ICU Pt Getting Diuretics Vascular Central Line Catheter: Yes Assessment to: Continue Date of Insertion: Jan 13, 2018 Line: Central Venous Catheter Side: Right Location: Internal, Jugular A/P Assessment and Plan NEURO/PSYCH: Alcohol withdrawal Alcohol dependence On propofol drip at 20 mcg/kg/min for sedation while intubated with as needed fentanyl drip Dexmedetomidine drip for vent weaning ordered Currently receiving thiamine 100 mg IV daily. Receiving multivitamin and folate and TPN RESP: Acute hypoxemic respiratory failure Likely OHS, STAS PRVC 16/550/1.2/ Currently on CPAP trial 27/12 at 35%. Ventilator bundle. Albuterol/ipratropium aerosols every 4 hours, albuterol aerosols every 2 hours as needed dyspnea Chest x-ray in 01/14-stable pulmonary edema/possible left lower lobe effusion. Actively diuresing with furosemide 40 mg IV twice daily Follow up chest x-ray in a.m. 01/16 CV: History of hypertension -Holding amlodipine 5 mg due to GI bleed and Spironolactone 50 mg p.o. daily -Systolic hypertension. As needed labetalol, Nitropaste and nicardipine drip to maintain systolic blood pressure less than 170 -Diuresis with furosemide per nephrology. Currently on furosemide 40 mg IV twice daily GI: Upper GI bleed secondary to esophageal varices Ascites/abdominal Liver cirrhosis/hepatic steatosis Cholelithiasis Elevated lipase Elevated ammonia Hypoalbuminemia/moderate protein calorie malnutrition EGD 12/28 revealed -esophageal varices/nipple midesophagus with 3 bands noted. Portal gastropathy. Hiatal hernia. Repeat EGD per GI Dobbhoff tube now on trickle feeds with Nepro goal 50 cc an hour. TPN at 42 mL Pentoxifylline 400 mg every 8 hours. Change pantoprazole infusion at 8 mg an hour to 40 mg IV twice daily, discontinue octreotide infusion at 25 mcg/hr. Status post paracentesis 12/28-3 L. repeat paracentesis with 3.5L removed CT abdomen/pelvis revealed no sequelae of pancreatitis. CT aorta revealed no signs of dissection or leakage. Lactulose 30 every 12 hours for elevated ammonia/BM Continue metoclopramide 5 every 8. Having BM 200 cc MELD score in a.m. 01/09 - . Similar findings since FEN//Endo: Hypopotassemia Hypernatremia -Monitor renal function closely. Sliding scale insulin Accu-Cheks with NovoLog/low regimen every 4 hours to maintain euglycemia 10 units insulin in TPN Adjusting TPN see orders 40 mEq KCl IV 1 now. Add free water 200 cc every 4 hours ID: Probable sepsis Noted staph epi blood culture 12/31+ probable contamination Possible SBP -Klebsiella oxycota 01/07 Linezolid and piperacillin/tazobactam renally dosed. Discontinue linezolid 01/13 Repeat sputum cx 01/05 no growth wbc continues to rise, as well as LFTs. will obtain diagnostic peritoneal fluid with small needle to send for culture. Pertinent cultures 01/07 -peritoneal fluid -Klebsiella oxycota 12/31 -blood cultures 1 out of 4 staph epi. 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 Hb 8 INR 1.4 today. s/p 1 unit of PRBC 2017 and transfuse 3 units PRBCs 01/08. 2 unit PRBCs 01/09 -Serially monitor INR, phytonadione 5 mg given 12/31 and daily days has been completed -Hemoglobin level appear to have stabilized RENAL: Acute kidney injury- persistent, worsening. Possible hepatorenal syndrome Possible contrast nephropathy, vs HRS. Urine sodium 11. Urine creatinine elevated. Negative urine eosinophils. No hydronephrosis on CAT scan. Nephrology Dr. Elder. Furosemide 40 mg IV twice daily No hydronephrosis PROPH: -Bilateral lower extremity SCDs. IV pantoprazole twice daily. Chemical DVT prophylaxis is contraindicated at this time LINES: -left IJ CVL placed 12/31, d/c 01/13 - right IJ CVL placed 01/14 Level 2 follow-up Constantine Alvarado MD Jan 15, 2018 08:09
[2018-01-15] MEDS ORDERED: POTASSIUM CHLOR 40 MEQ PREMIX 100 ML IV ONE (08:15)
[2018-01-15] MEDS ORDERED: SODIUM CHLORIDE 23.4% INJ 38.5 MEQ in WATER STERILE FOR INJ 1,000 ML IV SCH (09:00)
[2018-01-15] MEDS: CHLORHEXIDINE 0.12% (ORAL KIT) 15 ML CUP MT SCH ×2 (09:21→20:00)
[2018-01-15] MEDS: SODIUM CHLORIDE 0.9% FLUSH 10 ML FLUSH IV FLUSH SCH ×4 (09:22→21:00)
[2018-01-15] MEDS: PANTOPRAZOLE SODIUM 40 MG VIAL IV PUSH SCH ×2 (09:24→21:39)
[2018-01-15] MEDS: LACTULOSE SYRUP 20 GM/30 ML CUP PO SCH ×2 (09:24→21:39)
[2018-01-15] MEDS: FUROSEMIDE 40 MG/4 ML VIAL IV PUSH SCH ×2 (09:24→17:19)
[2018-01-15] MEDS: THIAMINE HCL 100 MG TAB PO SCH (09:30)
[2018-01-15] MEDS: FREE WATER G-TUBE SCH ×3 (12:03→20:00)
--- NOTE | 2018-01-15 12:15 | HHI.HCPN ---
Reason for visit a. To assist with evaluation and management of symptoms including: dyspnea, pain. b. To assist medical decision maker(s) with: better understanding of current medical conditions; weighing benefits/burdens of medical treatment options; making medical treatment decisions. . Subjective/Interval History Patient seen to follow-up today on comfort, updates to legal decision maker. Remains on mechanical vent ICU. CPAP trials continuing today. WBC still elevated 19.3. Blood cultures from 01/13 no growth 2 days. H&H stable 8.9/ 26.9. Total bilirubin uptrending 20.1. Hypernatremic today 150. BUN 51, creatinine 2.4. Status post paracentesis yesterday evening--nonpurulent fluid returned, sent for micro. Patient seen in room no visitors present. Nursing informs mother has not been in yet today. Discussed with critical care, primary nurse. . Family/friend interactions Following exam call to patient mother Debo voicemail left on house line, cell line just rings. Requested nursing notify me if family arrives. Nursing later notified of mother Debo arrival. Met w mother at length in waiting area. Review hospital course, last few days, recent diagnostics, overall condition/prognosis. Review that pt tolerating some CPAP though not clear if/when he may medically extubate. This is 3 weeks here, if not able to wean/medically extubate may require trach/peg for chcf continued care, which would not change underlying medical conditions. Review pt now a full code. Mother indicates pt has been trying to communicate w her, nursing, though cannot tell what he is saying. She indicates he wants to live, but not clear that he understands how sick he is . Review of CPR, she requests continued DNR status as CPR would not help his overall conditions. She expresses that she does not believe he would want a trach/PEG if it wound mean he would continue to live as he is, would only want such things if a good chance for significant recovery. All questions answered. She has palliative contact information. D/w primary nurse, critical care. Advance Directives Living Will: Never completed Health Care Surrogate: Never completed Durable Power of Abrading Machine Tender: Never completed Advance Directive Specifics Health Care Surrogate(s): Documented care wishes: No written advanced directives. . Objective Vital Signs Date Time Temp Pulse Resp B/P (MAP) Pulse Ox O2 Delivery O2 Flow Rate FiO2 01/15/18 11:40 35 01/15/18 11:36 100 35 01/15/18 10:00 96 01/15/18 08:00 35 01/15/18 08:00 99.8 96 20 137/66 (89) 100 01/15/18 08:00 96 01/15/18 07:37 100 35 01/15/18 07:35 35 01/15/18 06:00 96 01/15/18 04:00 99.9 96 20 124/58 (80) 100 01/15/18 04:00 35 01/15/18 04:00 96 01/15/18 03:19 100 35 01/15/18 02:00 92 01/15/18 00:00 94 01/15/18 00:00 35 01/15/18 00:00 99.9 94 18 115/59 (77) 100 01/14/18 23:14 100 35 01/14/18 22:00 98 01/14/18 20:00 35 01/14/18 20:00 102 01/14/18 20:00 99.7 102 20 145/69 (94) 100 01/14/18 19:30 100 35 01/14/18 18:00 102 01/14/18 16:00 99.9 101 30 131/69 (89) 99 01/14/18 16:00 35 01/14/18 16:00 101 01/14/18 15:53 99 35 01/14/18 14:00 99 01/14/18 12:07 100 35 01/14/18 12:00 35 01/14/18 12:00 98.2 97 24 128/68 (88) 100 01/14/18 12:00 97 Intake & Output 01/15/18 01/15/18 07:00 19:00 Intake Total 400 ml 504 ml Output Total 1600 ml Balance -1200 ml 504 ml IV Total 400 ml 504 ml Output Urine Total 1500 ml Stool Total 100 ml Drainage Total 0 ml Physical Exam CONSTITUTIONAL/GENERAL: This is a critically ill, obese male, in no apparent distress. TUBES/LINES/DRAINS: ETT, Dobbhoff right nare, rt jugular central line, PIV x 2 bilateral soft wrist restraints, Key, rectal tube, SCDs. SKIN: + jaundice. Ecchymoses on upper extremities. Skin warm/dry EYES: Pupils equal and round and reactive. + scleral icterus, slight scleral edema. No injection or drainage. Fundi not examined. ENT: Nose without bleeding or purulent drainage. Throat difficult to visualize due to tubes. CARDIOVASCULAR: Regular rate and rhythm without murmurs. 2-3+ general edema RESPIRATORY/CHEST: On mech vent, respirations even/unlabored via ETT, cpap. tachypneic at times during exam as he is trying to talk. Scattered rhonchi. Breath sounds equal and diminished bilaterally. GASTROINTESTINAL: Abdomen protuberant, distended, slightly firm, Bowel sounds infrequent GENITOURINARY: Without palpable bladder distension. Key catheter in place dark orange/brown urine. MUSCULOSKELETAL: Lower extremities with pitting edema. Upper extremities with pitting edema NEUROLOGICAL: alert, nods to some yes/no questions . follows simple commands-- moves all 4 extremities to commands. Trying to mouth words and gesture but I am unable to understand. PSYCHIATRIC: mildly tachypneic/anxious at times. . Diagnostic Tests Laboratory Laboratory Tests Test 01/13/18 04:26 01/13/18 09:58 01/14/18 05:50 01/15/18 04:30 White Blood Count 18.7 TH/MM3 (4.0-11.0) 21.8 TH/MM3 (4.0-11.0) 19.3 TH/MM3 (4.0-11.0) Red Blood Count 2.99 MIL/MM3 (4.50-5.90) 3.08 MIL/MM3 (4.50-5.90) 3.02 MIL/MM3 (4.50-5.90) Hemoglobin 8.7 GM/DL (13.0-17.0) 9.1 GM/DL (13.0-17.0) 8.9 GM/DL (13.0-17.0) Hematocrit 26.1 % (39.0-51.0) 27.1 % (39.0-51.0) 26.9 % (39.0-51.0) Mean Corpuscular Volume 87.5 FL (80.0-100.0) 88.2 FL (80.0-100.0) 89.0 FL (80.0-100.0) Mean Corpuscular Hemoglobin 29.1 PG (27.0-34.0) 29.5 PG (27.0-34.0) 29.4 PG (27.0-34.0) Mean Corpuscular Hemoglobin Concent 33.2 % (32.0-36.0) 33.5 % (32.0-36.0) 33.0 % (32.0-36.0) Red Cell Distribution Width 20.0 % (11.6-17.2) 20.0 % (11.6-17.2) 19.9 % (11.6-17.2) Platelet Count 172 TH/MM3 (150-450) 197 TH/MM3 (150-450) 204 TH/MM3 (150-450) Mean Platelet Volume 8.2 FL (7.0-11.0) 8.1 FL (7.0-11.0) 8.2 FL (7.0-11.0) Neutrophils (%) (Auto) 71.7 % (16.0-70.0) 74.0 % (16.0-70.0) Lymphocytes (%) (Auto) 12.2 % (9.0-44.0) 13.3 % (9.0-44.0) Monocytes (%) (Auto) 11.4 % (0.0-8.0) 9.4 % (0.0-8.0) Eosinophils (%) (Auto) 3.2 % (0.0-4.0) 1.8 % (0.0-4.0) Basophils (%) (Auto) 1.5 % (0.0-2.0) 1.5 % (0.0-2.0) Neutrophils # (Auto) 13.4 TH/MM3 (1.8-7.7) 14.3 TH/MM3 (1.8-7.7) Lymphocytes # (Auto) 2.3 TH/MM3 (1.0-4.8) 2.6 TH/MM3 (1.0-4.8) Monocytes # (Auto) 2.1 TH/MM3 (0-0.9) 1.8 TH/MM3 (0-0.9) Eosinophils # (Auto) 0.6 TH/MM3 (0-0.4) 0.4 TH/MM3 (0-0.4) Basophils # (Auto) 0.3 TH/MM3 (0-0.2) 0.3 TH/MM3 (0-0.2) CBC Comment AUTO DIFF AUTO DIFF DIFF FINAL Differential Total Cells Counted 100 100 Neutrophils % (Manual) 57 % (16-70) 47 % (16-70) Band Neutrophils % 22 % (0-6) 25 % (0-6) Lymphocytes % 7 % (9-44) 11 % (9-44) Monocytes % 7 % (0-8) 4 % (0-8) Eosinophils % 4 % (0-4) 4 % (0-4) Neutrophils # (Manual) 15.3 TH/MM3 (1.8-7.7) 17.2 TH/MM3 (1.8-7.7) Metamyelocytes 3 % (0-1) 3 % (0-1) Differential Comment FINAL DIFF MANUAL FINAL DIFF MANUAL Platelet Estimate NORMAL (NORMAL) NORMAL (NORMAL) Platelet Morphology Comment NORMAL (NORMAL) NORMAL (NORMAL) Prothrombin Time 14.0 SEC (9.8-11.6) 13.8 SEC (9.8-11.6) 14.5 SEC (9.8-11.6) Prothromb Time International Ratio 1.4 RATIO 1.4 RATIO 1.4 RATIO Activated Partial Thromboplast Time 34.3 SEC (24.3-30.1) 33.3 SEC (24.3-30.1) 33.7 SEC (24.3-30.1) Fibrinogen 296 mg/dL (227-377) 339 mg/dL (227-377) Blood Urea Nitrogen 54 MG/DL (7-18) 51 MG/DL (7-18) 51 MG/DL (7-18) Creatinine 2.37 MG/DL (0.60-1.30) 2.25 MG/DL (0.60-1.30) 2.48 MG/DL (0.60-1.30) Random Glucose 99 MG/DL (74-106) 127 MG/DL (74-106) 123 MG/DL (74-106) Total Protein 6.5 GM/DL (6.4-8.2) 6.5 GM/DL (6.4-8.2) 6.7 GM/DL (6.4-8.2) Albumin 3.1 GM/DL (3.4-5.0) 3.0 GM/DL (3.4-5.0) 2.9 GM/DL (3.4-5.0) Calcium Level 9.7 MG/DL (8.5-10.1) 9.8 MG/DL (8.5-10.1) 9.8 MG/DL (8.5-10.1) Phosphorus Level 3.6 MG/DL (2.5-4.9) 3.7 MG/DL (2.5-4.9) Magnesium Level 2.0 MG/DL (1.5-2.5) 2.1 MG/DL (1.5-2.5) Alkaline Phosphatase 86 U/L (45-117) 100 U/L (45-117) 109 U/L (45-117) Aspartate Amino Transf (AST/SGOT) 214 U/L (15-37) 228 U/L (15-37) 231 U/L (15-37) Alanine Aminotransferase (ALT/SGPT) 92 U/L (12-78) 99 U/L (12-78) 99 U/L (12-78) Total Bilirubin 16.5 MG/DL (0.2-1.0) 18.2 MG/DL (0.2-1.0) 20.1 MG/DL (0.2-1.0) Sodium Level 148 MEQ/L (136-145) 149 MEQ/L (136-145) 150 MEQ/L (136-145) Potassium Level 3.4 MEQ/L (3.5-5.1) 3.3 MEQ/L (3.5-5.1) 3.4 MEQ/L (3.5-5.1) Chloride Level 108 MEQ/L (98-107) 108 MEQ/L (98-107) 110 MEQ/L (98-107) Carbon Dioxide Level 29.2 MEQ/L (21.0-32.0) 28.6 MEQ/L (21.0-32.0) 27.0 MEQ/L (21.0-32.0) Anion Gap 11 MEQ/L (5-15) 12 MEQ/L (5-15) 13 MEQ/L (5-15) Estimat Glomerular Filtration Rate 29 ML/MIN (>89) 31 ML/MIN (>89) 28 ML/MIN (>89) Ammonia 16 MCMOL/L (11-32) 26 MCMOL/L (11-32) Urine Color YELLOW (YELLW/STRAW) Urine Turbidity CLEAR (CLEAR) Urine pH 5.0 (5.0-8.5) Urine Specific Ivel 1.009 (1.002-1.035) Urine Protein NEG mg/dL (NEG-TRACE) Urine Glucose (UA) NEG mg/dL (NEG) Urine Ketones NEG mg/dL (NEG) Urine Occult Blood NEG (NEG) Urine Nitrite NEG (NEG) Urine Bilirubin NEG (NEG) Urine Urobilinogen LESS THAN 2.0 MG/DL (LESS Urine Leukocyte Esterase NEG (NEG) Urine RBC LESS THAN 1 /hpf (0-3) Urine WBC 1 /hpf (0-5) Urine Hyaline Casts 3 /lpf (RARE) Urine Mucus FEW /lpf (OCC) Microscopic Urinalysis Comment CATH-CULT NOT IND Basophils % 2 % (0-2) Myelocytes 4 % (0-0) Nucleated Red Blood Cells 1 /100 WBC (0-0) Acanthocytes OCC (NORMAL) Lactate Dehydrogenase 253 U/L (87-241) Amylase Level 71 U/L (25-115) Result Diagram: 01/15/18 0430 01/15/18 0430 Microbiology Microbiology Date/Time Source Procedure Growth Status 01/13/18 15:43 Blood Other Aerobic Blood Culture - Preliminary NO GROWTH IN 2 DAYS Resulted 01/13/18 15:43 Blood Other Anaerobic Blood Culture - Preliminary NO GROWTH IN 2 DAYS Resulted 01/13/18 10:00 Blood Other Aerobic Blood Culture - Preliminary NO GROWTH IN 2 DAYS Resulted 01/13/18 10:00 Blood Other Anaerobic Blood Culture - Preliminary NO GROWTH IN 2 DAYS Resulted 01/14/18 18:10 Fluid Peritoneal Fluid Gram Stain - Final Resulted 01/14/18 18:10 Fluid Peritoneal Fluid Body Fluid Culture Pending Resulted 01/13/18 09:58 Sputum Endotracheal Gram Stain - Final Complete 01/13/18 09:58 Sputum Endotracheal Sputum Culture - Final HEAVY GROWTH NORMAL RESPIRATORY AISHWARYA Complete Imaging Last Impressions Chest X-Ray 01/14/18 0600 Signed Impressions: CONCLUSION: Scattered patchy infiltrates in both lung bases. Abdomen X-Ray 01/03/18 0600 Signed Impressions: CONCLUSION: No dilated bowel. Liver Ultrasound 12/31/17 0000 Signed Impressions: CONCLUSION: 1. Diffuse increased echogenicity throughout the liver suggestive of fatty inf iltration and/or hepatocellular disease. 2. Hepatomegaly. 3. Thickened gallbladder wall at 12 mm. No definite gallstones are seen. As ca n be seen with chronic gallbladder disease. Aorta CTA 12/28/17 0000 Signed Impressions: Service Date/Time: Thursday, December 28, 2017 21:00 - CONCLUSION: 1. Normal thoracic and abdominal aorta. No dissection/aneurysm seen. 2. Bibasilar consolidation and patchy densities in the upper lobes. 3. Hepatic steatosis with possible cirrhosis and moderate abdominal ascites. 4. Cholelithiasis. Aldair Francis MD Abdomen/Pelvis CT 12/[id number]/[id number] Signed Impressions: Service Date/Time: Wednesday, December 27, 2017 21:00 - CONCLUSION: 1. Diffusely abnormal liver likely secondary to hepatic steatosis and possible changes of cirrhosis. 2. Splenomegaly. This could be secondary to portal hypertension. 3. Moderate ascites. 4. Calcified gallstone. Stefan Grier MD Gall Bladder Ultrasound 12/27/17 0000 Signed Impressions: Service Date/Time: Wednesday, December 27, 2017 21:16 - CONCLUSION: 1. Diffusely abnormal liver secondary to cirrhosis and hepatic steatosis. 2. Gallbladder wall thickening. This is nonspecific. This can be seen with hepatic disease. It also can be seen with cholecystitis in the correct clinical situation. Gallstones were not demonstrated on the ultrasound examination but are clearly present on the CT examination. Stefan Grier MD Assessment and Plan Disease Oriented Problem List: (1) Probable sepsis (2) Abnormal INR (3) Alcoholic cirrhosis (4) Hyponatremia (5) Ascites (6) Acute renal failure (7) Upper GI bleed (8) Coagulopathy (9) Anemia requiring transfusions (10) Transaminitis (11) Hyperbilirubinemia Symptom Scale: (1) Pain 0-10 Scale: Unable to quantify (2) Dyspnea 0-10 Scale: Unable to quantify Pertinent Non-Medical Issues Psychosocial:Lives with his mother, Debo. Legally to estranged , Yuliya (lives in [place]). No children. Spiritual: Denominational agustina. 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 Legal:Patient is not capacitated to make his own health care decisions, uncertain if he will regain capacity. Mr. Cedillo has never completed written advanced directives. According to [place] Statues, medical proxy decision maker would fall to patient's spouse, [employer] resulted, Yuliya located Yuliya wishes to serve as legal proxy, though she does wish to involve pt Mother Debo in care/decisions, if Debo wishes to remain involved. Ethical issues impacting care: No known concerns at this time. . Important Contacts Debo Henderson, mother, PROXY as of 01/14/18 : [phone] (cell), ( home) No longer PROXY as 01/14/18 per pt request , Yuliya Henderson, : (cell) . Prognosis Mr. 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 Overall prognosis is poor. . Code Status: No Code Plan * Patient is not capacitated to make his own health care decisions, uncertain if he will regain capacity. Mr. Cedillo has never completed written advanced directives. According to [place] Statues, medical proxy decision maker would fall to patient's spouse, patient Yuliya Henderson endorses she does wish to serve as healthcare proxy for this patient. Yuliya does also wish to involve patient mother with decision-making however at this time patient mother has expressed that she does not wish to speak with Yuliya. 01/14/18 patient able to communicate some via nodding and gesturing; he indicates he does not wish for his Yuliya to continue to get updates or service decision-maker. He is not able to indicate who he would want to make decisions, by [place] statutes proxy decision making would then fall to his mother if he has been able to express he does not want to be his estranged legal . * CODE STATUS : Full code-->> later changed back to DNR after meeting with patient mother * GOALS: proxy now pt mother. pt will require trach/PEG when able/stable enough for. He is not able to indicate his wishes for/against. Will need to further clarify with his mother Debo. The possibility of needing a trach, PEG possibly this week has previously been discussed with patient and patient mother. Voicemail has been left for mother Debo 01/15 * 1300 later met with patient mother Debo, spoke with her at length regarding patient conditions possible procedures going forward overall prognosis. She request DNR status. She indicates she would probably not proceed with tracheostomy and PEG based on patient known wishes of the will watch and see patient status in the coming days to see if he is able to participate more. * SYMPTOMS; pain: Some abdominal tenderness. Likely related to disease process. He does nod yes to pain though unable to further qualify or quantify due to intubation and limited communication. Avoiding sedating medications at this time due to pending medical extubation. Dyspnea: on mech vent, tolerating CPAP, though felt would likely require reintubation if extubated due to multiple organ dysfunction, body habitus. No new medication recommendations at this time. * Palliative care will continue to follow throughout hospitalization to assist with clarification of medical treatment goals and symptom management as needed. . Time Spent Total Floor Time (mins): 45 (Chart review, PE, discussion with nursing, discussion with family, discussion with critical care) Attestation To help prompt me to consider important information that might be impacting today's encounter and assessment, information from prior notes written by myself or my colleagues may have been "brought forward" into today's note. My signature on this note, however, is an attestation that I personally performed the exam, history, and/or decision-making noted today, and, unless otherwise indicated, the interactions with patient, family, and staff as well as the review of records all occurred today. I also attest that the listed assessment and stated plan reflect my best clinical judgment today based on the combination of historical information, prior notes, and today's exam/ interactions. When time spent is documented, it refers only to time spent today by the signer, or if indicated, combined time spent today by collaborating physician/nurse practitioner. Glo Morgan Jan 15, 2018 12:15
--- NOTE | 2018-01-15 14:57 | HHI.NPPN ---
Subjective History of Present Illness 52-year-old male, Alcoholic hepatitis/cirrhosis received contrast study and acute renal failure Objective Data Data 01/15/18 01/16/18 18:59 06:59 Intake Total 654 ml Balance 654 ml IV Total 654 ml Vital Signs Date Time Temp Pulse Resp B/P (MAP) Pulse Ox O2 Delivery O2 Flow Rate FiO2 01/15/18 14:00 98 01/15/18 12:00 98.6 96 25 127/60 (82) 100 01/15/18 12:00 96 01/15/18 12:00 35 01/15/18 11:40 35 01/15/18 11:36 100 35 01/15/18 10:00 96 01/15/18 08:00 35 01/15/18 08:00 99.8 96 20 137/66 (89) 100 01/15/18 08:00 96 01/15/18 07:37 100 35 01/15/18 07:35 35 01/15/18 06:00 96 01/15/18 04:00 99.9 96 20 124/58 (80) 100 01/15/18 04:00 35 01/15/18 04:00 96 01/15/18 03:19 100 35 01/15/18 02:00 92 01/15/18 00:00 94 01/15/18 00:00 35 01/15/18 00:00 99.9 94 18 115/59 (77) 100 01/14/18 23:14 100 35 01/14/18 22:00 98 01/14/18 20:00 35 01/14/18 20:00 102 01/14/18 20:00 99.7 102 20 145/69 (94) 100 01/14/18 19:30 100 35 01/14/18 18:00 102 01/14/18 16:00 99.9 101 30 131/69 (89) 99 01/14/18 16:00 35 01/14/18 16:00 101 01/14/18 15:53 99 35 -: 01/15/18 0430 01/15/18 0430 Microbiology 01/14/18 Gram Stain - Final, Resulted 01/14/18 Body Fluid Culture - Preliminary, Resulted NO GROWTH IN 24 HOURS. Physical Exam General Appearance: Well Developed, Well Nourished Eyes Eye Exam: Jaundice Neck Neck Exam: Neck Supple Pulmonary Resp Exam: Clear Bilaterally, Diminished Breath Sounds Cardiology CV Exam: Regular, Normal Sinus Rhythm Gastrointestinal/Abdomen GI Exam: Soft, Distended Extremeties Extremities Exam: Moderate Edema Assessment/Plan Problem List: (1) Acute renal failure ICD Codes: N17.9 - Acute kidney failure, unspecified Plan: Patient has liver cirrhosis and possible hepatorenal syndrome is considered, unlikely as he is non oliguric. Some improvement in renal function. CR 2.5 Replaced potassium. UOP 3.6 L Hypernatremia is noted. on Lasix 40 mg IV BID (2) Upper GI bleed ICD Codes: K92.2 - Gastrointestinal hemorrhage, unspecified Plan: GI is following (3) Alcoholic cirrhosis ICD Codes: K70.30 - Alcoholic cirrhosis of liver without ascites Plan: Followed by GI (4) Coagulopathy ICD Codes: D68.9 - Coagulation defect, unspecified Plan: Patient has received blood product, FFP and PRBCs (5) Ascites ICD Codes: R18.8 - Other ascites Plan: Due to alcoholic cirrhosis Problem Qualifiers (1) Acute renal failure: Qualified Codes: N17.9 - Acute kidney failure, unspecified (2) Alcoholic cirrhosis: Qualified Codes: K70.31 - Alcoholic cirrhosis of liver with ascites (3) Ascites: Qualified Codes: K70.31 - Alcoholic cirrhosis of liver with ascites Ciro Elder MD Jan 15, 2018 14:57
[2018-01-15] MEDS ORDERED: [UNRECOGNIZED DRUG - OTHER] IV-CENTRAL SCH ×8 (20:00)
[2018-01-15] MEDS ORDERED: SODIUM ACETATE IV-CENTRAL SCH ×8 (20:00)
[2018-01-15] MEDS ORDERED: POTASSIUM CHLORIDE IV-CENTRAL SCH ×8 (20:00)
[2018-01-15] MEDS: POTASSIUM CHLORIDE IV-CENTRAL SCH ×9 (21:37)
[2018-01-15] MEDS: [UNRECOGNIZED DRUG - OTHER] IV-CENTRAL SCH ×9 (21:37)
[2018-01-15] MEDS: SODIUM ACETATE IV-CENTRAL SCH ×9 (21:37)
[2018-01-16] VITALS (20 sets, daily range): BP systolic 125–162; BP diastolic 62–74; PULSE 92–108; RESP 18–33; TEMP 98.7–101.1; O2SAT 92–95
[2018-01-16] MEDS: RESP: ALBUTEROL 2.5 MG/IPRATROPIUM 0.5 MG NEB (SCH) NEB ×6 (03:17→23:42)
[2018-01-16] MEDS: INSULIN NovoLIN REGULAR SUPPLEMENTAL SCALE SQ SCH ×6 (04:00→20:00)
[2018-01-16] MEDS: FREE WATER G-TUBE SCH ×6 (04:00→20:32)
[2018-01-16 04:31] LABS: AUTOMATED NEUTROPHIL # 12.6 TH/MM3 (1.8-7.7); BASOPHIL # 0.2 TH/MM3 (0-0.2); BASOPHIL % 1.3 % (0.0-2.0); EOSINOPHIL # 0.3 TH/MM3 (0-0.4); EOSINOPHIL % 1.9 % (0.0-4.0); HEMOGLOBIN 8.7 GM/DL (13.0-17.0); LYMPH % 15.8 % (9.0-44.0); LYMPHOCYTE # 2.7 TH/MM3 (1.0-4.8); MEAN CELL VOLUME 89.3 FL (80.0-100.0); MEAN CORPUSCULAR HEMOGLOBIN 29.9 PG (27.0-34.0); MEAN CORPUSCULAR HGB CONC 33.5 % (32.0-36.0); MEAN PLATELET VOLUME 8.1 FL (7.0-11.0); MONO % 7.7 % (0.0-8.0); MONOCYTE # 1.3 TH/MM3 (0-0.9); NEUT % 73.3 % (16.0-70.0); PLATELET COUNT 205 TH/MM3 (150-450); RED BLOOD COUNT 2.92 MIL/MM3 (4.50-5.90); RED CELL DISTRIBUTION WIDTH 21.9 % (11.6-17.2); WHITE BLOOD COUNT 17.1 TH/MM3 (4.0-11.0)
[2018-01-16] MEDS: PIPERACIL-TAZO 2.25 GM PREMIX 50 ML IV SCH ×4 (04:32→21:00)
[2018-01-16 04:44] LABS: INTERNATIONAL NORMALIZED RATIO 1.4 RATIO; PROTHROMBIN TIME - PATIENT 14.5 SEC (9.8-11.6)
[2018-01-16 05:06] LABS: ALBUMIN 2.7 GM/DL (3.4-5.0); ALKALINE PHOSPHATASE 113 U/L (45-117); ALT (GPT) 95 U/L (12-78); AST (GOT) 207 U/L (15-37); BICARBONATE 28.1 MEQ/L (21.0-32.0); BLOOD UREA NITROGEN 54 MG/DL (7-18); CALCIUM 9.3 MG/DL (8.5-10.1); CHLORIDE 111 MEQ/L (98-107); CREATININE 2.66 MG/DL (0.60-1.30); GLOMERULAR FILTRATION RATE 26 ML/MIN (>89); GLUCOSE,RANDOM 113 MG/DL (74-106); MAGNESIUM 2.5 MG/DL (1.5-2.5); PHOSPHORUS 3.9 MG/DL (2.5-4.9); SODIUM (NA) 150 MEQ/L (136-145); TOTAL BILIRUBIN ADULT 20.8 MG/DL (0.2-1.0); TOTAL PROTEIN 6.6 GM/DL (6.4-8.2)
[2018-01-16] MEDS: PENTOXIFYLLINE 400 MG CONTROLLED RELEASE TAB PO SCH (06:00)
[2018-01-16] MEDS: ARTIFICIAL TEARS OPTH SOLN 15 ML BTL EACH EYE SCH ×3 (06:10→23:01)
[2018-01-16] MEDS: METOCLOPRAMIDE HCL 10 MG/2 ML VIAL IV PUSH SCH ×3 (06:10→21:02)
--- NOTE | 2018-01-16 06:15 | RADRPT ---
EXAM DATE: 01/16/2018 5:58 AM EDT AGE/SEX: 52 years / Male INDICATIONS: Shortness of breath. CLINICAL DATA: This is the patient's subsequent encounter. Patient reports that signs and symptoms h ave been present for 1 week and indicates a pain score of Nonresponsive. MEDICAL/SURGICAL HISTORY: . Hypertension. Gastroesophageal reflux disease. Cirrhosis. . Umbili richy hernia repair. COMPARISON: [facility] [place]ST SINGLE AP, 01/14/2018. . FINDINGS: Endotracheal tube in good position. Feeding tube enters stomach. Right central line in superior vena cava. Cardiomegaly with basilar airspace disease not significantly changed from January 14. CONCLUSION: Support apparatus unchanged. Basilar airspace disease also stable since January 14. Electronically signed by: Aditya Ramesh MD 01/16/2018 6:13 AM EDT
[2018-01-16] MEDS: FUROSEMIDE 40 MG/4 ML VIAL IV PUSH SCH (08:22)
[2018-01-16] MEDS: LACTULOSE SYRUP 20 GM/30 ML CUP PO SCH ×2 (08:22→21:01)
[2018-01-16] MEDS: PANTOPRAZOLE SODIUM 40 MG VIAL IV PUSH SCH ×2 (08:22→21:01)
[2018-01-16] MEDS: THIAMINE HCL 100 MG TAB PO SCH (08:22)
[2018-01-16] MEDS: SODIUM CHLORIDE 0.9% FLUSH 10 ML FLUSH IV FLUSH SCH ×4 (08:23→20:33)
[2018-01-16] MEDS: CHLORHEXIDINE 0.12% (ORAL KIT) 15 ML CUP MT SCH ×2 (08:24→20:00)
--- NOTE | 2018-01-16 09:28 | HHI.CCPN ---
Subjective Remarks/Hospital Course Patient is a 52-year-old male with history of alcohol dependence, on chronic Coumadin for "abdominal vein thrombosis", history of hypertension who presented to the emergency department with complaints of increasing jaundice, increasing abdominal girth and vomiting jade blood multiple times over the last 2 days. Patient admits to being a heavy drinker he drinks about 1.75 L bottle hard liquor every 2 days. ER workup showed patient had a hemoglobin of 8.1, INR was 15.7. PTT 156.1, white count of 13.6 with 10% bands. Also sodium was noted to be 119, AST 439 ALT 115 and bilirubin of 7.6. A stat CT abdomen pelvis showed moderate ascites, probable cirrhosis and hepatic steatosis, splenomegaly, and gallstones. Patient had been ordered to receive 2 units of PRBC, and total 4 units of FFP. INR, Hb will be rechecked after this and additional FFP will be given accordingly. 10 mg vitamin K also ordered. Unfortunately hospital is out of [facility]. I evaluated the patient in the emergency department. He initially had an alcohol level of 135. At the time of my exam he is in moderate distress appears to be slightly tremulous. I have initiated CIWA protocol. I will also start its Rocephin for SBP prophylaxis. Patient had been started on IV Protonix infusion and octreotide which will be continued. Patient clinically also appears to have at least moderate ascites but I am unable to perform paracentesis due to elevated INR. 12/28: Currently resting in bed complaining of abdominal pain. Short of breath and tachypnea. Complaining of nausea currently. Remains on nasal cannula. Patient does not desire his mother's to have knowledge about his alcohol use. 12/29: Afebrile. Remains intubated post EGD yesterday due to worsening hypoxia. Currently on PSV trial 26/05 at 40%. Remains on dexmedetomidine drip and attempt to wean with alcohol use and likely progression to DTs. Banding of varices noted. Pentoxifylline 400 mg every 8 hours initiated with appropriate 12/30: Awake on dexmedetomidine drip at 1 mcg/kg/min. Following commands and attempting to write. Nods his head when states he feels the effects of alcohol withdrawals. Afebrile. Continues to leak from prior site of paracentesis. 12/31: Diminished urine output noted overnight. Increasing FiO2 requirement. Bladder pressures measured currently elevated around 25. Will place tube to suction and notify GI. Nephrology consult placed. Will need central line. 01/01: T-max 100. Currently 99. Meld score 34. Discriminant function is 34. Tamera alcohol scale score 7. Arousable the ventilator. FiO2 increased to 40- 60% overnight. 350 cc from NG tube overnight. 01/02: T-max 99.8. No bowel movement overnight. Abdomen remains distended. More ascites output from left lower quadrant previous paracentesis site. Arousable on the ventilator and follows commands on sedation vacation. Remains on PEEP of 12. FiO2 60%. 01/03: Patient remains intubated sedated very critical. FiO2 had to be increased to 70%. I have increase PEEP from 12-14. Chest x-ray remains unchanged. T-max 100.5. Urine output 1.3 L. BUN 42 creatinine 3.5 hemoglobin 7.4. Bedside ultrasound shows at least moderate ascites. Plan for thoracentesis for fluid removal and also will help with vent dynamic. 01/04: Persistent problems with oxygenation related to diffuse basilar atelectasis. Patient converted to airway pressure release ventilation this morning. Caloric intake probably on the high side in view of propofol infusion. Will reduce TPN to 60 cc/h. Enteral feedings at trickle rate. 01/05: Patient placed on APRV mode 01/04 with T-hi 5 sec Pres hi 30, with release volumes around 800 cc. Good oxygen saturation 30% FiO2. X-ray shows improvement in bilateral consolidation persistent left lower lobe infiltrate. Urine output 1.5 L also 1.5 L out from left paracentesis site. Transfuse 1 U PRBC 01/06: Remains critically ill but making some progress. Reduce PHigh to 26, T high to 4.5, if tolerated well, attempt to switch to PC/AC with PEEP 18-20 and rita iTime. Urine output adequate 2.3 L in 24 hours. Paracentesis site draining approximately 1.4 L despite paracentesis and removal of 3.5 L yesterday. Increase Lasix to 60 mg IV q6hr, Creat improved to 3.29 01/07: Oxygenation modestly improved with very aggressive mean airway pressures , continue PEEP 1820. Abdominal girth and ascites have conspired to reduce functional residual capacity. Now a permanent peritoneal drain is in place and we will attempt to make some progress with gas exchange. Between the intractable ascites, morbid obesity, and respiratory failure it will be very difficult to remove this patient from positive pressure ventilation. 01/08: ET tube has migrated above the vocal cords. Directly visualized with glide scope after receiving 40 mg etomidate. Cuff was deflated several times and advanced with adequate tidal volumes post advancement. Follow-up chest x- ray revealed adequate placement of ET tube. Remains on furosemide will change to drip today. 01/09: Afebrile. FiO2 down to 65%. Continues with profuse drainage from pigtail site. Not tolerating tube feeds. Hemoglobin 6.4 units PRBCs. Will transfuse 1 unit today. 01/10: FiO2 down to 40%. PEEP decreased to 12. Arousable on propofol and fentanyl drips and able to follow commands. Transfuse 1 additional unit PRBCs overnight hemoglobin currently 8.4. 01/11: T-max 99. PEEP decreased to 10. Continue to be aroused on propofol and fentanyl drips and follows commands. Hemoglobin stable 01/12: PEEP decreased from 10 - 8. Remains arousable on propofol and fentanyl drips and follows commands. Hemoglobin stable. A.m. labs from [facility] currently pending. 01/13: Afebrile. Currently awake and alert on the ventilator. Attempting CPAP trial 05/16 at 35%. No new issues overnight. 01/14: no improvements. awake on the ventilator. CAM-. capacitated. very weak. wbc continues to rise. MELD 29. overall very poor prognosis. had a discussion with the patient. he is too weak to write things down, but he can nod yes or no and give thumbs up/down. passed complete CAM-ICU assessment and not delirious. RASS 0 and oriented to person and place. difficult to assess time orientation. I explained his hospital course, along with all of the organ systems that were failing, and he nodded to express understanding. I told him that his ex- was legally still to him and legally his medical decision maker and she had been making healthcare decisions for him, and he expressed quite clearly that he did not want her to make decisions on his behalf. Palliative care was at bedside and confirmed this assessment. It is my assessment that the patient has full capacity to make decisions and to designate or un-designate healthcare surrogates. Subjective 01/15: T-max 99.9/also Tcurrent. Tolerated CPAP trial 12 hours yesterday however failed weaning parameters with high RSBI. Tube feeds have not been initiated. Positive BM 1. Continues with very slow drainage from prior pigtail catheter placed for abdominal ascites. Currently denying pain 01/16: back down to admission weight. all labs continue to worsen. MELD 31. remains febrile with elevated wbc. cultures NGTD. Objective Vital Signs Date Time Temp Pulse Resp B/P (MAP) Pulse Ox O2 Delivery O2 Flow Rate FiO2 01/16/18 08:42 94 35 01/16/18 06:00 102 01/16/18 04:00 99.2 22 127/71 (89) 01/14/18 07:51 Ventilator Intake and Output 01/16/18 01/16/18 01/17/18 08:00 16:00 00:00 Intake Total 1050 ml Output Total 1200 ml Balance -150 ml Result Diagram: 01/16/18 0425 01/16/18 0425 Other Results Microbiology Date/Time Source Procedure Growth Status 01/13/18 09:58 Sputum Endotracheal Gram Stain - Final Complete 01/13/18 09:58 Sputum Endotracheal Sputum Culture - Final HEAVY GROWTH NORMAL RESPIRATORY AISHWARYA Complete Imaging Last Impressions Chest X-Ray 01/14/18 0600 Signed Impressions: CONCLUSION: Scattered patchy infiltrates in both lung bases. Abdomen X-Ray 01/03/18 0600 Signed Impressions: CONCLUSION: No dilated bowel. Liver Ultrasound 12/31/17 0000 Signed Impressions: CONCLUSION: 1. Diffuse increased echogenicity throughout the liver suggestive of fatty inf iltration and/or hepatocellular disease. 2. Hepatomegaly. 3. Thickened gallbladder wall at 12 mm. No definite gallstones are seen. As ca n be seen with chronic gallbladder disease. Aorta CTA 12/28/17 0000 Signed Impressions: Service Date/Time: Thursday, December 28, 2017 21:00 - CONCLUSION: 1. Normal thoracic and abdominal aorta. No dissection/aneurysm seen. 2. Bibasilar consolidation and patchy densities in the upper lobes. 3. Hepatic steatosis with possible cirrhosis and moderate abdominal ascites. 4. Cholelithiasis. Aldair Francis MD Abdomen/Pelvis CT 12/27/17 192 Signed Impressions: Service Date/Time: Wednesday, December 27, 2017 21:00 - CONCLUSION: 1. Diffusely abnormal liver likely secondary to hepatic steatosis and possible changes of cirrhosis. 2. Splenomegaly. This could be secondary to portal hypertension. 3. Moderate ascites. 4. Calcified gallstone. Stefan Grier MD Gall Bladder Ultrasound 12/27/17 0000 Signed Impressions: Service Date/Time: Wednesday, December 27, 2017 21:16 - CONCLUSION: 1. Diffusely abnormal liver secondary to cirrhosis and hepatic steatosis. 2. Gallbladder wall thickening. This is nonspecific. This can be seen with hepatic disease. It also can be seen with cholecystitis in the correct clinical situation. Gallstones were not demonstrated on the ultrasound examination but are clearly present on the CT examination. Stefan Grier MD Procedures Paracentesis EGD Objective Remarks GENERAL: 52-year-old male lying in bed orotracheally intubated SKIN: Warm and dry. Jaundiced HEAD: Atraumatic. Normocephalic. EYES: Pupils equal and round about 3 millimeters, positive for conjunctival icterus. ENT: No nasal bleeding or discharge. Mucous membranes dry and pink. Orotracheally intubated NECK: Trachea midline. Cannot appreciate JVD due to body habitus. right IJ is clean dry and intact CARDIOVASCULAR: Regular rate and rhythm. Without murmur RESPIRATORY:Breath sounds equal bilaterally, but reduced anteriorly and in bases. GASTROINTESTINAL: Abdomen distended abdomen nontender obese. There is drainage from bilateral flanks, previous paracentesis sites. MUSCULOSKELETAL: Extremities -bilateral lower extreme 1+ pitting edema NEUROLOGICAL: Awake on the ventilator and moving all 4 extremities spontaneously. Follows simple commands such as thumbs up with bilateral hands. No obvious cranial nerve deficits. Motor grossly within normal limits. Date of Insertion: Jan 13, 2018 Line: Central Venous Catheter Side: Right Location: Internal, Jugular A/P Assessment and Plan NEURO/PSYCH: Alcohol withdrawal Alcohol dependence On propofol for sedation while intubated with as needed fentanyl drip Dexmedetomidine drip for vent weaning ordered Currently receiving thiamine 100 mg IV daily. Receiving multivitamin and folate and TPN RESP: Acute hypoxemic respiratory failure Likely OHS, STAS Ventilator bundle. Albuterol/ipratropium aerosols every 4 hours, albuterol aerosols every 2 hours as needed dyspnea Chest x-ray in 01/14-stable pulmonary edema/possible left lower lobe effusion. hold lasix for now: may be nearing dry weight. CXR 6/7: unchanged. CV: History of hypertension -Holding amlodipine 5 mg due to GI bleed and Spironolactone 50 mg p.o. daily -Systolic hypertension. As needed labetalol, Nitropaste and nicardipine drip to maintain systolic blood pressure less than 170 -hold lasix today: may be getting close to over-diuresis. would not recommend adding back any ivf. GI: Upper GI bleed secondary to esophageal varices Ascites/abdominal Liver cirrhosis/hepatic steatosis Cholelithiasis Elevated lipase Elevated ammonia Hypoalbuminemia/moderate protein calorie malnutrition EGD 12/28 revealed -esophageal varices/nipple midesophagus with 3 bands noted. Portal gastropathy. Hiatal hernia. Repeat EGD per GI Dobbhoff tube now on trickle feeds with Nepro goal 50 cc an hour: increase TF to goal.. TPN at 42 mL: would ideally like to d/c TPN when at goal. Pentoxifylline 400 mg every 8 hours: hold this as it is unable to be crushed and placed in feeding tube. IV BID PPI. Status post paracentesis 12/28-3 L. repeat paracentesis with 3.5L removed CT abdomen/pelvis revealed no sequelae of pancreatitis. CT aorta revealed no signs of dissection or leakage. Lactulose 30 every 12 hours for elevated ammonia/BM Continue metoclopramide 5 every 8. Having BM 200 cc MELD score in a.m. 01/09 - . Similar findings since,although continues to worsen. MELD 01/16 - . FEN//Endo: Hypopotassemia Hypernatremia -Monitor renal function closely. Sliding scale insulin Accu-Cheks with NovoLog/low regimen every 4 hours to maintain euglycemia 10 units insulin in TPN 80 mEq KCl IV 1 now. increase free water 300 cc every 4 hours ID: Probable sepsis Noted staph epi blood culture 12/31+ probable contamination Possible SBP -Klebsiella oxycota 01/07 continue zosyn (renally dosed) s/p linezolid Repeat sputum cx 01/05 no growth wbc continues to rise, as well as LFTs. peritoneal fluid: NGTD. Pertinent cultures 01/07 -peritoneal fluid -Klebsiella oxycota 12/31 -blood cultures 1 out of 4 staph epi. 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 Hb 8 INR 1.4 today. s/p 1 unit of PRBC 2017 and transfuse 3 units PRBCs 01/08. 2 unit PRBCs 01/09 -Serially monitor INR, phytonadione 5 mg given 12/31 and daily days has been completed -Hemoglobin level appear to have stabilized RENAL: Acute kidney injury- persistent, worsening. Possible hepatorenal syndrome Possible contrast nephropathy, vs HRS. Urine sodium 11. Urine creatinine elevated. Negative urine eosinophils. No hydronephrosis on CAT scan. Nephrology Dr. Elder. No hydronephrosis PROPH: -Bilateral lower extremity SCDs. IV pantoprazole twice daily. Chemical DVT prophylaxis is contraindicated at this time LINES: -left IJ CVL placed 12/31, d/c 01/13 - right IJ CVL placed 01/14 OVERALL IMPRESSION: critically ill. all organ systems worse. no improvements. if we withdraw support, he would . likely terminal disease process. for now, family presses on for aggressive measures. Critical Care time: 33 minutes, exclusive of separately billable procedures. Woodrow Douglas MD Jan 16, 2018 09:28
[2018-01-16] MEDS: PROPOFOL 1000 MG/100 ML INJ 100 ML IV PRN ×2 (11:17→23:02)
[2018-01-16] MEDS: oxyCODONE HCL ORAL CONC 5 MG/0.25 ML SYRINGE PO PRN ×2 (11:18→16:37)
[2018-01-16] MEDS: POTASSIUM CHLOR 40 MEQ PREMIX 100 ML IV SCH ×2 (13:47→18:14)
--- NOTE | 2018-01-16 15:08 | HHI.NPPN ---
Subjective History of Present Illness 52-year-old male, Alcoholic hepatitis/cirrhosis received contrast study and acute renal failure Objective Data Data Vital Signs Date Time Temp Pulse Resp B/P (MAP) Pulse Ox O2 Delivery O2 Flow Rate FiO2 01/16/18 15:02 95 35 01/16/18 14:00 104 01/16/18 12:00 106 01/16/18 12:00 35 01/16/18 12:00 98.7 106 33 148/72 (97) 93 01/16/18 10:00 108 01/16/18 09:57 92 35 01/16/18 09:40 100.4 01/16/18 08:42 94 35 01/16/18 08:42 35 01/16/18 08:00 104 01/16/18 08:00 35 01/16/18 08:00 101.1 104 21 139/65 (89) 92 01/16/18 07:25 93 35 01/16/18 06:00 102 01/16/18 04:00 95 01/16/18 04:00 99.2 98 22 127/71 (89) 92 01/16/18 04:00 35 01/16/18 03:19 93 35 01/16/18 02:00 94 01/16/18 00:00 95 01/16/18 00:00 35 01/16/18 00:00 99.4 95 28 125/62 (83) 93 01/15/18 23:43 94 35 01/15/18 22:00 100 01/15/18 20:04 95 35 01/15/18 20:00 35 01/15/18 20:00 93 01/15/18 20:00 100.0 93 20 134/64 (87) 93 01/15/18 18:00 90 01/15/18 16:11 95 35 01/15/18 16:00 98 01/15/18 16:00 100.1 98 31 124/64 (84) 95 01/15/18 16:00 35 -: 01/16/18 0425 01/16/18 0425 Physical Exam General Appearance: Well Developed, Well Nourished Eyes Eye Exam: Jaundice Neck Neck Exam: Neck Supple Pulmonary Resp Exam: Clear Bilaterally, Diminished Breath Sounds Cardiology CV Exam: Regular, Normal Sinus Rhythm Gastrointestinal/Abdomen GI Exam: Soft, Distended Extremeties Extremities Exam: Moderate Edema Assessment/Plan Problem List: (1) Acute renal failure ICD Codes: N17.9 - Acute kidney failure, unspecified Plan: Patient has liver cirrhosis and possible hepatorenal syndrome is considered, unlikely as he is non oliguric. Some improvement in renal function. CR 2.6 Replaced potassium. UOP Hypernatremia is noted. fever noted Lasix 40 mg IV BID on hold getting free water hypotonic solution (2) Upper GI bleed ICD Codes: K92.2 - Gastrointestinal hemorrhage, unspecified Plan: GI is following (3) Alcoholic cirrhosis ICD Codes: K70.30 - Alcoholic cirrhosis of liver without ascites Plan: Followed by GI (4) Coagulopathy ICD Codes: D68.9 - Coagulation defect, unspecified Plan: Patient has received blood product, FFP and PRBCs (5) Ascites ICD Codes: R18.8 - Other ascites Plan: Due to alcoholic cirrhosis Problem Qualifiers (1) Acute renal failure: Qualified Codes: N17.9 - Acute kidney failure, unspecified (2) Alcoholic cirrhosis: Qualified Codes: K70.31 - Alcoholic cirrhosis of liver with ascites (3) Ascites: Qualified Codes: K70.31 - Alcoholic cirrhosis of liver with ascites Ciro Elder MD Jan 16, 2018 15:08
[2018-01-16] MEDS: SODIUM ACETATE IV-CENTRAL SCH ×9 (21:01)
[2018-01-16] MEDS: POTASSIUM CHLORIDE IV-CENTRAL SCH ×9 (21:01)
[2018-01-16] MEDS: [UNRECOGNIZED DRUG - OTHER] IV-CENTRAL SCH ×9 (21:01)
[2018-01-17] VITALS (20 sets, daily range): BP systolic 121–141; BP diastolic 58–69; PULSE 90–108; RESP 18–29; TEMP 98.9–100.2; O2SAT 94–97
[2018-01-17] MEDS: FREE WATER G-TUBE SCH ×6 (00:03→20:00)
[2018-01-17] MEDS: PIPERACIL-TAZO 2.25 GM PREMIX 50 ML IV SCH ×4 (02:00→20:00)
[2018-01-17] MEDS: RESP: ALBUTEROL 2.5 MG/IPRATROPIUM 0.5 MG NEB (SCH) NEB ×6 (03:04→23:19)
[2018-01-17] MEDS: CHLORHEXIDINE GLUCONATE 2 % 1 PACK (2 CLOTHS) TOP SCH (04:00)
[2018-01-17] MEDS: INSULIN NovoLIN REGULAR SUPPLEMENTAL SCALE SQ SCH ×6 (04:35→20:00)
[2018-01-17] MEDS: PROPOFOL 1000 MG/100 ML INJ 100 ML IV PRN ×2 (05:18→18:41)
[2018-01-17] MEDS: METOCLOPRAMIDE HCL 10 MG/2 ML VIAL IV PUSH SCH ×3 (05:19→21:13)
[2018-01-17 05:27] LABS: BASOPHIL # 0.3 TH/MM3 (0-0.2); BASOPHIL % 1.7 % (0.0-2.0); EOSINOPHIL # 0.5 TH/MM3 (0-0.4); EOSINOPHIL % 3.1 % (0.0-4.0); HEMATOCRIT 27.7 % (39.0-51.0); LYMPH % 10.5 % (9.0-44.0); LYMPHOCYTE # 1.8 TH/MM3 (1.0-4.8); MEAN CELL VOLUME 91.9 FL (80.0-100.0); MEAN CORPUSCULAR HGB CONC 32.6 % (32.0-36.0); MEAN PLATELET VOLUME 8.4 FL (7.0-11.0); MONO % 9.5 % (0.0-8.0); MONOCYTE # 1.6 TH/MM3 (0-0.9); NEUT % 75.2 % (16.0-70.0); PLATELET COUNT 214 TH/MM3 (150-450); RED BLOOD COUNT 3.01 MIL/MM3 (4.50-5.90); RED CELL DISTRIBUTION WIDTH 24.6 % (11.6-17.2); WHITE BLOOD COUNT 17.3 TH/MM3 (4.0-11.0)
[2018-01-17 05:34] LABS: INTERNATIONAL NORMALIZED RATIO 1.4 RATIO; PROTHROMBIN TIME - PATIENT 14.5 SEC (9.8-11.6)
[2018-01-17 05:54] LABS: ALT (GPT) 90 U/L (12-78)
[2018-01-17 06:09] LABS: ALBUMIN 2.6 GM/DL (3.4-5.0); ALKALINE PHOSPHATASE 119 U/L (45-117); AST (GOT) 191 U/L (15-37); BICARBONATE 26.9 MEQ/L (21.0-32.0); BLOOD UREA NITROGEN 54 MG/DL (7-18); CALCIUM 9.7 MG/DL (8.5-10.1); CHLORIDE 114 MEQ/L (98-107); CREATININE 2.66 MG/DL (0.60-1.30); GLOMERULAR FILTRATION RATE 26 ML/MIN (>89); GLUCOSE,RANDOM 143 MG/DL (74-106); SODIUM (NA) 153 MEQ/L (136-145); TOTAL PROTEIN 6.7 GM/DL (6.4-8.2)
[2018-01-17 06:11] LABS: TOTAL BILIRUBIN ADULT 20.3 MG/DL (0.2-1.0)
[2018-01-17] MEDS: ARTIFICIAL TEARS OPTH SOLN 15 ML BTL EACH EYE SCH ×3 (07:00→23:00)
[2018-01-17] MEDS: CHLORHEXIDINE 0.12% (ORAL KIT) 15 ML CUP MT SCH ×2 (08:00→20:00)
[2018-01-17] MEDS: LACTULOSE SYRUP 20 GM/30 ML CUP PO SCH ×2 (08:22→21:00)
[2018-01-17] MEDS: PANTOPRAZOLE SODIUM 40 MG VIAL IV PUSH SCH ×2 (08:22→21:00)
[2018-01-17] MEDS: THIAMINE HCL 100 MG TAB PO SCH (08:22)
[2018-01-17] MEDS: SODIUM CHLORIDE 0.9% FLUSH 10 ML FLUSH IV FLUSH SCH ×3 (08:23)
[2018-01-17] MEDS: oxyCODONE HCL ORAL CONC 5 MG/0.25 ML SYRINGE PO PRN ×2 (10:47→21:28)
[2018-01-17] MEDS ORDERED: FLUCONAZOLE 200 MG PREMIX BAG 100 ML IV ONE (13:00)
--- NOTE | 2018-01-17 13:04 | HHI.CCPN ---
Subjective Remarks/Hospital Course Patient is a 52-year-old male with history of alcohol dependence, on chronic Coumadin for "abdominal vein thrombosis", history of hypertension who presented to the emergency department with complaints of increasing jaundice, increasing abdominal girth and vomiting jade blood multiple times over the last 2 days. Patient admits to being a heavy drinker he drinks about 1.75 L bottle hard liquor every 2 days. ER workup showed patient had a hemoglobin of 8.1, INR was 15.7. PTT 156.1, white count of 13.6 with 10% bands. Also sodium was noted to be 119, AST 439 ALT 115 and bilirubin of 7.6. A stat CT abdomen pelvis showed moderate ascites, probable cirrhosis and hepatic steatosis, splenomegaly, and gallstones. Patient had been ordered to receive 2 units of PRBC, and total 4 units of FFP. INR, Hb will be rechecked after this and additional FFP will be given accordingly. 10 mg vitamin K also ordered. Unfortunately hospital is out of K [facility]. I evaluated the patient in the emergency department. He initially had an alcohol level of 135. At the time of my exam he is in moderate distress appears to be slightly tremulous. I have initiated CIWA protocol. I will also start its Rocephin for SBP prophylaxis. Patient had been started on IV Protonix infusion and octreotide which will be continued. Patient clinically also appears to have at least moderate ascites but I am unable to perform paracentesis due to elevated INR. 12/28: Currently resting in bed complaining of abdominal pain. Short of breath and tachypnea. Complaining of nausea currently. Remains on nasal cannula. Patient does not desire his mother's to have knowledge about his alcohol use. 12/29: Afebrile. Remains intubated post EGD yesterday due to worsening hypoxia. Currently on PSV trial 26/05 at 40%. Remains on dexmedetomidine drip and attempt to wean with alcohol use and likely progression to DTs. Banding of varices noted. Pentoxifylline 400 mg every 8 hours initiated with appropriate 12/30: Awake on dexmedetomidine drip at 1 mcg/kg/min. Following commands and attempting to write. Nods his head when states he feels the effects of alcohol withdrawals. Afebrile. Continues to leak from prior site of paracentesis. 12/31: Diminished urine output noted overnight. Increasing FiO2 requirement. Bladder pressures measured currently elevated around 25. Will place tube to suction and notify GI. Nephrology consult placed. Will need central line. 01/01: T-max 100. Currently 99. Meld score 34. Discriminant function is 34. Tamera alcohol scale score 7. Arousable the ventilator. FiO2 increased to 40- 60% overnight. 350 cc from NG tube overnight. 01/02: T-max 99.8. No bowel movement overnight. Abdomen remains distended. More ascites output from left lower quadrant previous paracentesis site. Arousable on the ventilator and follows commands on sedation vacation. Remains on PEEP of 12. FiO2 60%. 01/03: Patient remains intubated sedated very critical. FiO2 had to be increased to 70%. I have increase PEEP from 12-14. Chest x-ray remains unchanged. T-max 100.5. Urine output 1.3 L. BUN 42 creatinine 3.5 hemoglobin 7.4. Bedside ultrasound shows at least moderate ascites. Plan for thoracentesis for fluid removal and also will help with vent dynamic. 01/04: Persistent problems with oxygenation related to diffuse basilar atelectasis. Patient converted to airway pressure release ventilation this morning. Caloric intake probably on the high side in view of propofol infusion. Will reduce TPN to 60 cc/h. Enteral feedings at trickle rate. 01/05: Patient placed on APRV mode 01/04 with T-hi 5 sec Pres hi 30, with release volumes around 800 cc. Good oxygen saturation 30% FiO2. X-ray shows improvement in bilateral consolidation persistent left lower lobe infiltrate. Urine output 1.5 L also 1.5 L out from left paracentesis site. Transfuse 1 U PRBC 01/06: Remains critically ill but making some progress. Reduce PHigh to 26, T high to 4.5, if tolerated well, attempt to switch to PC/AC with PEEP 18-20 and rita iTime. Urine output adequate 2.3 L in 24 hours. Paracentesis site draining approximately 1.4 L despite paracentesis and removal of 3.5 L yesterday. Increase Lasix to 60 mg IV q6hr, Creat improved to 3.29 01/07: Oxygenation modestly improved with very aggressive mean airway pressures , continue PEEP 1820. Abdominal girth and ascites have conspired to reduce functional residual capacity. Now a permanent peritoneal drain is in place and we will attempt to make some progress with gas exchange. Between the intractable ascites, morbid obesity, and respiratory failure it will be very difficult to remove this patient from positive pressure ventilation. 01/08: ET tube has migrated above the vocal cords. Directly visualized with glide scope after receiving 40 mg etomidate. Cuff was deflated several times and advanced with adequate tidal volumes post advancement. Follow-up chest x- ray revealed adequate placement of ET tube. Remains on furosemide will change to drip today. 01/09: Afebrile. FiO2 down to 65%. Continues with profuse drainage from pigtail site. Not tolerating tube feeds. Hemoglobin 6.4 units PRBCs. Will transfuse 1 unit today. 01/10: FiO2 down to 40%. PEEP decreased to 12. Arousable on propofol and fentanyl drips and able to follow commands. Transfuse 1 additional unit PRBCs overnight hemoglobin currently 8.4. 01/11: T-max 99. PEEP decreased to 10. Continue to be aroused on propofol and fentanyl drips and follows commands. Hemoglobin stable 01/12: PEEP decreased from 10 - 8. Remains arousable on propofol and fentanyl drips and follows commands. Hemoglobin stable. A.m. labs from [facility] currently pending. 01/13: Afebrile. Currently awake and alert on the ventilator. Attempting CPAP trial 05/16 at 35%. No new issues overnight. 01/14: no improvements. awake on the ventilator. CAM-. capacitated. very weak. wbc continues to rise. MELD 29. overall very poor prognosis. had a discussion with the patient. he is too weak to write things down, but he can nod yes or no and give thumbs up/down. passed complete CAM-ICU assessment and not delirious. RASS 0 and oriented to person and place. difficult to assess time orientation. I explained his hospital course, along with all of the organ systems that were failing, and he nodded to express understanding. I told him that his ex- was legally still to him and legally his medical decision maker and she had been making healthcare decisions for him, and he expressed quite clearly that he did not want her to make decisions on his behalf. Palliative care was at bedside and confirmed this assessment. It is my assessment that the patient has full capacity to make decisions and to designate or un-designate healthcare surrogates. 01/15: T-max 99.9/also Tcurrent. Tolerated CPAP trial 12 hours yesterday however failed weaning parameters with high RSBI. Tube feeds have not been initiated. Positive BM 1. Continues with very slow drainage from prior pigtail catheter placed for abdominal ascites. Currently denying pain 01/16: back down to admission weight. all labs continue to worsen. MELD 31. remains febrile with elevated wbc. cultures NGTD. Subjective 01/17: no meaningful improvements. sodium rising. renal function essentially unchanged. LFTs still very elevated. cultures ngtd. wbc remains high despite empiric abx therapy. still febrile. Objective Vital Signs Date Time Temp Pulse Resp B/P (MAP) Pulse Ox O2 Delivery O2 Flow Rate FiO2 01/17/18 12:00 35 01/17/18 12:00 95 01/17/18 12:00 100.2 29 141/69 (93) 94 01/14/18 07:51 Ventilator Intake and Output 01/17/18 01/17/18 01/18/18 08:00 16:00 00:00 Intake Total 1350 ml 50 ml Output Total 1500 ml Balance -150 ml 50 ml Result Diagram: 01/17/18 0445 01/17/18 0445 Imaging Last Impressions Chest X-Ray 01/14/18 0600 Signed Impressions: CONCLUSION: Scattered patchy infiltrates in both lung bases. Abdomen X-Ray 01/03/18 0600 Signed Impressions: CONCLUSION: No dilated bowel. Liver Ultrasound 12/31/17 0000 Signed Impressions: CONCLUSION: 1. Diffuse increased echogenicity throughout the liver suggestive of fatty inf iltration and/or hepatocellular disease. 2. Hepatomegaly. 3. Thickened gallbladder wall at 12 mm. No definite gallstones are seen. As ca n be seen with chronic gallbladder disease. Aorta CTA 12/28/17 0000 Signed Impressions: Service Date/Time: Thursday, December 28, 2017 21:00 - CONCLUSION: 1. Normal thoracic and abdominal aorta. No dissection/aneurysm seen. 2. Bibasilar consolidation and patchy densities in the upper lobes. 3. Hepatic steatosis with possible cirrhosis and moderate abdominal ascites. 4. Cholelithiasis. Aldair Francis MD Abdomen/Pelvis CT 12/27/17 192 Signed Impressions: Service Date/Time: Wednesday, December 27, 2017 21:00 - CONCLUSION: 1. Diffusely abnormal liver likely secondary to hepatic steatosis and possible changes of cirrhosis. 2. Splenomegaly. This could be secondary to portal hypertension. 3. Moderate ascites. 4. Calcified gallstone. Stefan Grier MD Gall Bladder Ultrasound 12/27/17 0000 Signed Impressions: Service Date/Time: Wednesday, December 27, 2017 21:16 - CONCLUSION: 1. Diffusely abnormal liver secondary to cirrhosis and hepatic steatosis. 2. Gallbladder wall thickening. This is nonspecific. This can be seen with hepatic disease. It also can be seen with cholecystitis in the correct clinical situation. Gallstones were not demonstrated on the ultrasound examination but are clearly present on the CT examination. Stefan Grier MD Procedures Paracentesis EGD Objective Remarks GENERAL: 52-year-old male lying in bed orotracheally intubated SKIN: Warm and dry. Jaundiced HEAD: Atraumatic. Normocephalic. EYES: Pupils equal and round about 3 millimeters, positive for conjunctival icterus. ENT: No nasal bleeding or discharge. Mucous membranes dry and pink. Orotracheally intubated NECK: Trachea midline. Cannot appreciate JVD due to body habitus. right IJ is clean dry and intact CARDIOVASCULAR: Regular rate and rhythm. Without murmur RESPIRATORY:Breath sounds equal bilaterally, but reduced anteriorly and in bases. GASTROINTESTINAL: Abdomen distended abdomen nontender obese. There is drainage from bilateral flanks, previous paracentesis sites. MUSCULOSKELETAL: Extremities -bilateral lower extreme 1+ pitting edema NEUROLOGICAL: Awake on the ventilator and moving all 4 extremities spontaneously. Follows simple commands such as thumbs up with bilateral hands. No obvious cranial nerve deficits. Motor grossly within normal limits. Date of Insertion: Jan 13, 2018 Line: Central Venous Catheter Side: Right Location: Internal, Jugular A/P Assessment and Plan NEURO/PSYCH: Alcohol withdrawal Alcohol dependence On propofol for sedation while intubated with as needed fentanyl drip Dexmedetomidine drip for vent weaning ordered Currently receiving thiamine 100 mg IV daily. Receiving multivitamin and folate and TPN RESP: Acute hypoxemic respiratory failure Likely OHS, STAS Ventilator bundle. Albuterol/ipratropium aerosols every 4 hours, albuterol aerosols every 2 hours as needed dyspnea Chest x-ray in 01/14-stable pulmonary edema/possible left lower lobe effusion. continue to hold lasix. CXR 01/16: unchanged. still failing SBT. CV: History of hypertension -Holding amlodipine 5 mg due to GI bleed and Spironolactone 50 mg p.o. daily -Systolic hypertension. As needed labetalol, Nitropaste and nicardipine drip to maintain systolic blood pressure less than 170 -continue to hold lasix. GI: Upper GI bleed secondary to esophageal varices Ascites/abdominal Liver cirrhosis/hepatic steatosis Cholelithiasis Elevated lipase Elevated ammonia Hypoalbuminemia/moderate protein calorie malnutrition EGD 12/28 revealed -esophageal varices/nipple midesophagus with 3 bands noted. Portal gastropathy. Hiatal hernia. Repeat EGD per GI Dobbhoff tube now on trickle feeds with Nepro goal 50 cc an hour: increase TF to goal.. TPN at 42 mL: would ideally like to d/c TPN when at goal. Pentoxifylline 400 mg every 8 hours: hold this as it is unable to be crushed and placed in feeding tube. IV BID PPI. Status post paracentesis 12/28-3 L. repeat paracentesis with 3.5L removed CT abdomen/pelvis revealed no sequelae of pancreatitis. CT aorta revealed no signs of dissection or leakage. Lactulose 30 every 12 hours for elevated ammonia/BM Continue metoclopramide 5 every 8. Having BM 200 cc MELD score in a.m. 01/09 - . Similar findings since,although continues to worsen. MELD 01/16 - . FEN//Endo: Hypopotassemia Hypernatremia -Monitor renal function closely. Sliding scale insulin Accu-Cheks with NovoLog/low regimen every 4 hours to maintain euglycemia 10 units insulin in TPN continue free water 300 cc every 4 hours have adjusted NaAcet, KAcet, KCl to minimize sodium in TPN. ID: Probable sepsis Noted staph epi blood culture 12/31+ probable contamination Possible SBP -Klebsiella oxycota 01/07 continue zosyn (renally dosed) s/p linezolid start diflucan empirically given he has been on TPN and fungemia may be a risk. persistent fevers and leukocytosis despite maximal therapy is concerning. Repeat sputum cx 01/05 no growth wbc continues to rise, as well as LFTs. peritoneal fluid: NGTD. Pertinent cultures 01/07 -peritoneal fluid -Klebsiella oxycota 12/31 -blood cultures 1 out of 4 staph epi. 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 Hb 8 INR 1.4 today. s/p 1 unit of PRBC 2017 and transfuse 3 units PRBCs 01/08. 2 unit PRBCs 01/09 -Serially monitor INR, phytonadione 5 mg given 12/31 and daily days has been completed -Hemoglobin level appear to have stabilized RENAL: Acute kidney injury- persistent, worsening. Possible hepatorenal syndrome Possible contrast nephropathy, vs HRS. Urine sodium 11. Urine creatinine elevated. Negative urine eosinophils. No hydronephrosis on CAT scan. Nephrology Dr. Elder. No hydronephrosis PROPH: -Bilateral lower extremity SCDs. IV pantoprazole twice daily. Chemical DVT prophylaxis is contraindicated at this time LINES: -left IJ CVL placed 12/31, d/c 01/13 - right IJ CVL placed 01/14 OVERALL IMPRESSION: critically ill. all organ systems worse. no improvements. if we withdraw support, he would . likely terminal disease process. for now, family presses on for aggressive measures. Woodrow Douglas MD Jan 17, 2018 13:04
[2018-01-17] MEDS: POTASSIUM CHLOR 40 MEQ PREMIX 100 ML IV SCH ×2 (14:02→18:42)
--- NOTE | 2018-01-17 16:09 | HHI.NPPN ---
Subjective History of Present Illness 52-year-old male, Alcoholic hepatitis/cirrhosis received contrast study and acute renal failure Objective Data Data 01/17/18 01/18/18 18:59 06:59 Intake Total 50 ml Balance 50 ml IV Total 50 ml Vital Signs Date Time Temp Pulse Resp B/P (MAP) Pulse Ox O2 Delivery O2 Flow Rate FiO2 01/17/18 15:46 97 35 01/17/18 13:08 95 35 01/17/18 12:00 35 01/17/18 12:00 95 01/17/18 12:00 100.2 95 29 141/69 (93) 94 01/17/18 11:53 29 01/17/18 10:00 100 01/17/18 09:37 96 35 01/17/18 09:37 35 01/17/18 08:00 35 01/17/18 08:00 100.1 90 20 133/69 (90) 97 01/17/18 08:00 90 01/17/18 07:10 97 35 01/17/18 06:00 90 01/17/18 05:08 95 35 01/17/18 04:00 92 01/17/18 04:00 35 01/17/18 04:00 98.9 91 19 121/61 (81) 95 01/17/18 02:01 95 35 01/17/18 02:00 90 01/17/18 00:00 35 01/17/18 00:00 94 01/17/18 00:00 99.3 94 18 122/58 (79) 94 01/16/18 22:00 92 01/16/18 20:00 96 01/16/18 20:00 35 01/16/18 20:00 99.9 94 18 138/70 (92) 92 01/16/18 19:24 93 35 01/16/18 18:00 96 01/16/18 16:47 93 35 -: 01/17/18 0445 01/17/18 0445 Physical Exam General Appearance: Well Developed, Well Nourished Eyes Eye Exam: Jaundice Neck Neck Exam: Neck Supple Pulmonary Resp Exam: Clear Bilaterally, Diminished Breath Sounds Cardiology CV Exam: Regular, Normal Sinus Rhythm Gastrointestinal/Abdomen GI Exam: Soft, Distended Extremeties Extremities Exam: Moderate Edema Assessment/Plan Problem List: (1) Acute renal failure ICD Codes: N17.9 - Acute kidney failure, unspecified Plan: Patient has liver cirrhosis and possible hepatorenal syndrome is considered, unlikely as he is non oliguric. Some improvement in renal function. CR 2.6 Na still high fluid retention Liver cirrhosis with critical illness UOP maintains febrile Hypernatremia is noted. replace K Lasix 40 mg IV BID on hold getting free water hypotonic solution (2) Upper GI bleed ICD Codes: K92.2 - Gastrointestinal hemorrhage, unspecified Plan: GI is following (3) Alcoholic cirrhosis ICD Codes: K70.30 - Alcoholic cirrhosis of liver without ascites Plan: Followed by GI (4) Coagulopathy ICD Codes: D68.9 - Coagulation defect, unspecified Plan: Patient has received blood product, FFP and PRBCs (5) Ascites ICD Codes: R18.8 - Other ascites Plan: Due to alcoholic cirrhosis Problem Qualifiers (1) Acute renal failure: Qualified Codes: N17.9 - Acute kidney failure, unspecified (2) Alcoholic cirrhosis: Qualified Codes: K70.31 - Alcoholic cirrhosis of liver with ascites (3) Ascites: Qualified Codes: K70.31 - Alcoholic cirrhosis of liver with ascites Ciro Elder MD Jan 17, 2018 16:09
[2018-01-17] MEDS ORDERED: POTASSIUM CHLOR 20 MEQ PREMIX 100 ML IV ONE (16:15)
--- NOTE | 2018-01-17 16:15 | HHI.HCPN ---
Reason for visit a. To assist with evaluation and management of symptoms including: dyspnea, pain. b. To assist medical decision maker(s) with: better understanding of current medical conditions; weighing benefits/burdens of medical treatment options; making medical treatment decisions. . Subjective/Interval History *Late entry patient seen earlier today 1300 Patient seen to follow-up today on comfort, updates to legal decision maker. Remains on mechanical vent and ICU. Continues with CPAP trials however due to multiple other medical conditions not expected to tolerate medical extubation. Still with low-grade fever 100.1 T-max. Blood cultures negative to date. WBC remains elevated at 17.3. H&H stable. BUN and creatinine remain elevated 54/ 2.66. + Urine output adequate. Sodium increasing 153. Total bilirubin remains elevated 20.3. Tube feeding has been resumed. Patient seen today, patient mother and proxy arrived shortly after my exam site returned to talk to her at length. Patient to my initial exam is alert at times he tracks examiner. He nods to some questions though inconsistently. He does not appear to fully understand conditions, very minimal communication. He does follow simple commands. He does fall asleep during exam. He continues to have significant jaundice. . Family/friend interactions Met with patient mother and proxy at bedside. Explore with her this weeks trajectory, current clinical assessment, current and recent diagnostics. Review with her overall prognosis going forward. Review with her that possible he could medically extubate however due to multiple conditions tachypnea and his limited tolerance of CPAP trials he would likely require reintubation in a period of hours or potentially days. In that case he would require tracheostomy to provide ongoing ventilation, as well as a longer term feeding tube to be surgically place. Explore that even with ongoing aggressive interventions he remains at risk for ongoing complications such as infections, organ failure, and continued decline. Explore that prognosis for long-term survival remains poor. All questions answered to the best my ability. She indicates that she was hopeful based on a discussion with nephrology yesterday that he might be medically extubated. Gently explore with her that though it is possible that sometimes that he could be medically extubated he would likely not be able to sustain himself, and he has multiple other issues not just his pulmonary status, all of which affect his pulmonary status. Explore with her the alternative to continued aggressive interventions would be transition to comfort focus, removal of artificial measures and allowing patient to be comfortable for whatever time he may have left. She requested talked to critical care. Dr. Willams then met with her at bedside, I remained present . He again explored patient overall condition, hospital trajectory and course thus far, and prognosis and likely trajectory going forward. He reviewed ongoing aggressive interventions which would include tracheostomy, PEG tube, which would not treatments, patient still high risk for ongoing decline and . Dr. Willams also explored the alternative which would be compassionate withdrawal of life support and transition to comfort focus. Anticipatory guidance was provided. Mother is tearful. She indicates she needs to talk to additional family. She wishes to continue available treatments at this time though again voices that she likely would not proceed with tracheostomy and feeding tube and would likely proceed with making him comfortable. . Advance Directives Living Will: Never completed Health Care Surrogate: Never completed Durable Power of Lead Nurse: Never completed Advance Directive Specifics Health Care Surrogate(s): Documented care wishes: No written advanced directives. . Objective Vital Signs Date Time Temp Pulse Resp B/P (MAP) Pulse Ox O2 Delivery O2 Flow Rate FiO2 01/17/18 15:46 97 35 01/17/18 13:08 95 35 01/17/18 12:00 35 01/17/18 12:00 95 01/17/18 12:00 100.2 95 29 141/69 (93) 94 01/17/18 11:53 29 01/17/18 10:00 100 01/17/18 09:37 96 35 01/17/18 09:37 35 01/17/18 08:00 35 01/17/18 08:00 100.1 90 20 133/69 (90) 97 01/17/18 08:00 90 01/17/18 07:10 97 35 01/17/18 06:00 90 01/17/18 05:08 95 35 01/17/18 04:00 92 01/17/18 04:00 35 01/17/18 04:00 98.9 91 19 121/61 (81) 95 01/17/18 02:01 95 35 01/17/18 02:00 90 01/17/18 00:00 35 01/17/18 00:00 94 01/17/18 00:00 99.3 94 18 122/58 (79) 94 01/16/18 22:00 92 01/16/18 20:00 96 01/16/18 20:00 35 01/16/18 20:00 99.9 94 18 138/70 (92) 92 01/16/18 19:24 93 35 01/16/18 18:00 96 01/16/18 16:47 93 35 Intake & Output 01/17/18 01/17/18 06:59 18:59 Intake Total 1350 ml 50 ml Output Total 1500 ml Balance -150 ml 50 ml Intake Oral 0 ml IV Total 50 ml Tube Feeding 450 ml Other 900 ml Output Urine Total 1250 ml Stool Total 250 ml Physical Exam CONSTITUTIONAL/GENERAL: This is a critically ill, obese male, in no apparent distress. TUBES/LINES/DRAINS: ETT, Dobbhoff right nare, rt jugular central line, PIV x 2 bilateral soft wrist restraints, Key, rectal tube, SCDs. SKIN: + jaundice. Ecchymoses on upper extremities. Skin warm/dry EYES: Pupils equal and round and reactive. + scleral icterus, slight scleral edema. No injection or drainage. Fundi not examined. ENT: Nose without bleeding or purulent drainage. Throat difficult to visualize due to tubes. CARDIOVASCULAR: Regular rate and rhythm without murmurs. 2-3+ general edema RESPIRATORY/CHEST: On mech vent, respirations even/unlabored via ETT, cpap. tachypneic respiratory rate 26 . scattered rhonchi. Breath sounds equal and diminished bilaterally. GASTROINTESTINAL: Abdomen protuberant, distended, slightly firm, Bowel sounds infrequent GENITOURINARY: Without palpable bladder distension. Key catheter in place dark orange/brown urine. MUSCULOSKELETAL: Lower extremities with slightly improved edema. Upper extremities with slightly improved edema. NEUROLOGICAL: alert, nods to some yes/no questions though not consistently. follows simple commands-- moves all 4 extremities to commands. Trying to mouth words and gesture but I am unable to understand. PSYCHIATRIC: mildly tachypneic/anxious at times. . Diagnostic Tests Laboratory Laboratory Tests Test 01/15/18 04:30 01/16/18 04:25 01/17/18 04:45 White Blood Count 19.3 TH/MM3 (4.0-11.0) 17.1 TH/MM3 (4.0-11.0) 17.3 TH/MM3 (4.0-11.0) Red Blood Count 3.02 MIL/MM3 (4.50-5.90) 2.92 MIL/MM3 (4.50-5.90) 3.01 MIL/MM3 (4.50-5.90) Hemoglobin 8.9 GM/DL (13.0-17.0) 8.7 GM/DL (13.0-17.0) 9.0 GM/DL (13.0-17.0) Hematocrit 26.9 % (39.0-51.0) 26.0 % (39.0-51.0) 27.7 % (39.0-51.0) Mean Corpuscular Volume 89.0 FL (80.0-100.0) 89.3 FL (80.0-100.0) 91.9 FL (80.0-100.0) Mean Corpuscular Hemoglobin 29.4 PG (27.0-34.0) 29.9 PG (27.0-34.0) 30.0 PG (27.0-34.0) Mean Corpuscular Hemoglobin Concent 33.0 % (32.0-36.0) 33.5 % (32.0-36.0) 32.6 % (32.0-36.0) Red Cell Distribution Width 19.9 % (11.6-17.2) 21.9 % (11.6-17.2) 24.6 % (11.6-17.2) Platelet Count 204 TH/MM3 (150-450) 205 TH/MM3 (150-450) 214 TH/MM3 (150-450) Mean Platelet Volume 8.2 FL (7.0-11.0) 8.1 FL (7.0-11.0) 8.4 FL (7.0-11.0) Neutrophils (%) (Auto) 74.0 % (16.0-70.0) 73.3 % (16.0-70.0) 75.2 % (16.0-70.0) Lymphocytes (%) (Auto) 13.3 % (9.0-44.0) 15.8 % (9.0-44.0) 10.5 % (9.0-44.0) Monocytes (%) (Auto) 9.4 % (0.0-8.0) 7.7 % (0.0-8.0) 9.5 % (0.0-8.0) Eosinophils (%) (Auto) 1.8 % (0.0-4.0) 1.9 % (0.0-4.0) 3.1 % (0.0-4.0) Basophils (%) (Auto) 1.5 % (0.0-2.0) 1.3 % (0.0-2.0) 1.7 % (0.0-2.0) Neutrophils # (Auto) 14.3 TH/MM3 (1.8-7.7) 12.6 TH/MM3 (1.8-7.7) 13.0 TH/MM3 (1.8-7.7) Lymphocytes # (Auto) 2.6 TH/MM3 (1.0-4.8) 2.7 TH/MM3 (1.0-4.8) 1.8 TH/MM3 (1.0-4.8) Monocytes # (Auto) 1.8 TH/MM3 (0-0.9) 1.3 TH/MM3 (0-0.9) 1.6 TH/MM3 (0-0.9) Eosinophils # (Auto) 0.4 TH/MM3 (0-0.4) 0.3 TH/MM3 (0-0.4) 0.5 TH/MM3 (0-0.4) Basophils # (Auto) 0.3 TH/MM3 (0-0.2) 0.2 TH/MM3 (0-0.2) 0.3 TH/MM3 (0-0.2) CBC Comment DIFF FINAL DIFF FINAL DIFF FINAL Differential Comment Prothrombin Time 14.5 SEC (9.8-11.6) 14.5 SEC (9.8-11.6) 14.5 SEC (9.8-11.6) Prothromb Time International Ratio 1.4 RATIO 1.4 RATIO 1.4 RATIO Activated Partial Thromboplast Time 33.7 SEC (24.3-30.1) 34.1 SEC (24.3-30.1) 33.3 SEC (24.3-30.1) Blood Urea Nitrogen 51 MG/DL (7-18) 54 MG/DL (7-18) 54 MG/DL (7-18) Creatinine 2.48 MG/DL (0.60-1.30) 2.66 MG/DL (0.60-1.30) 2.66 MG/DL (0.60-1.30) Random Glucose 123 MG/DL (74-106) 113 MG/DL (74-106) 143 MG/DL (74-106) Total Protein 6.7 GM/DL (6.4-8.2) 6.6 GM/DL (6.4-8.2) 6.7 GM/DL (6.4-8.2) Albumin 2.9 GM/DL (3.4-5.0) 2.7 GM/DL (3.4-5.0) 2.6 GM/DL (3.4-5.0) Calcium Level 9.8 MG/DL (8.5-10.1) 9.3 MG/DL (8.5-10.1) 9.7 MG/DL (8.5-10.1) Alkaline Phosphatase 109 U/L (45-117) 113 U/L (45-117) 119 U/L (45-117) Aspartate Amino Transf (AST/SGOT) 231 U/L (15-37) 207 U/L (15-37) 191 U/L (15-37) Alanine Aminotransferase (ALT/SGPT) 99 U/L (12-78) 95 U/L (12-78) 90 U/L (12-78) Total Bilirubin 20.1 MG/DL (0.2-1.0) 20.8 MG/DL (0.2-1.0) 20.3 MG/DL (0.2-1.0) Sodium Level 150 MEQ/L (136-145) 150 MEQ/L (136-145) 153 MEQ/L (136-145) Potassium Level 3.4 MEQ/L (3.5-5.1) 3.3 MEQ/L (3.5-5.1) 3.4 MEQ/L (3.5-5.1) Chloride Level 110 MEQ/L (98-107) 111 MEQ/L (98-107) 114 MEQ/L (98-107) Carbon Dioxide Level 27.0 MEQ/L (21.0-32.0) 28.1 MEQ/L (21.0-32.0) 26.9 MEQ/L (21.0-32.0) Anion Gap 13 MEQ/L (5-15) 11 MEQ/L (5-15) 12 MEQ/L (5-15) Estimat Glomerular Filtration Rate 28 ML/MIN (>89) 26 ML/MIN (>89) 26 ML/MIN (>89) Phosphorus Level 3.9 MG/DL (2.5-4.9) Magnesium Level 2.5 MG/DL (1.5-2.5) Result Diagram: 01/17/18 0445 01/17/185 Microbiology Microbiology Date/Time Source Procedure Growth Status 01/14/18 18:10 Fluid Peritoneal Fluid Gram Stain - Final Resulted 01/14/18 18:10 Fluid Peritoneal Fluid Body Fluid Culture - Preliminary NO GROWTH IN 48 HOURS. Resulted Imaging Last Impressions Chest X-Ray 01/16/18 06 Signed Impressions: CONCLUSION: Support apparatus unchanged. Basilar airspace disease also stable since January 14. Abdomen X-Ray 01/03/18 0600 Signed Impressions: CONCLUSION: No dilated bowel. Liver Ultrasound 12/31/17 0000 Signed Impressions: CONCLUSION: 1. Diffuse increased echogenicity throughout the liver suggestive of fatty inf iltration and/or hepatocellular disease. 2. Hepatomegaly. 3. Thickened gallbladder wall at 12 mm. No definite gallstones are seen. As ca n be seen with chronic gallbladder disease. Aorta CTA 12/28/17 0000 Signed Impressions: Service Date/Time: Thursday, December 28, 2017 21:00 - CONCLUSION: 1. Normal thoracic and abdominal aorta. No dissection/aneurysm seen. 2. Bibasilar consolidation and patchy densities in the upper lobes. 3. Hepatic steatosis with possible cirrhosis and moderate abdominal ascites. 4. Cholelithiasis. Aldair Francis MD Abdomen/Pelvis CT 12/27/[id number] Signed Impressions: Service Date/Time: Wednesday, December 27, 2017 21:00 - CONCLUSION: 1. Diffusely abnormal liver likely secondary to hepatic steatosis and possible changes of cirrhosis. 2. Splenomegaly. This could be secondary to portal hypertension. 3. Moderate ascites. 4. Calcified gallstone. Stefan Grier MD Gall Bladder Ultrasound 12/27/17 0000 Signed Impressions: Service Date/Time: Wednesday, December 27, 2017 21:16 - CONCLUSION: 1. Diffusely abnormal liver secondary to cirrhosis and hepatic steatosis. 2. Gallbladder wall thickening. This is nonspecific. This can be seen with hepatic disease. It also can be seen with cholecystitis in the correct clinical situation. Gallstones were not demonstrated on the ultrasound examination but are clearly present on the CT examination. Stefan Grier MD Assessment and Plan Disease Oriented Problem List: (1) Probable sepsis (2) Abnormal INR (3) Alcoholic cirrhosis (4) Hyponatremia (5) Ascites (6) Acute renal failure (7) Upper GI bleed (8) Coagulopathy (9) Anemia requiring transfusions (10) Transaminitis (11) Hyperbilirubinemia Symptom Scale: (1) Pain 0-10 Scale: Unable to quantify (2) Dyspnea 0-10 Scale: Unable to quantify Pertinent Non-Medical Issues Psychosocial:Lives with his mother, Debo. Legally to estranged , Yuliya (lives in [place]). No children. Spiritual: [employer]ian[employer] agustina. Professional Development Manager requested. Legal:Patient is not capacitated to make his own health care decisions, uncertain if he will regain capacity. Mr. Cedillo has never completed written advanced directives. According to [place] Statues, medical proxy decision maker would fall to patient's spouse, [employer], Yuliya located Yuliya wishes to serve as legal proxy, though she does wish to involve pt Mother Debo in care/decisions, if Debo wishes to remain involved. Ethical issues impacting care: No known concerns at this time. . Important Contacts Debo Henderson, mother, PROXY as of 01/14/18 : [phone] (cell), ( home) No longer PROXY as 01/14/18 per pt request , Yuliya Henderson, : (cell) . Prognosis Mr. 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 Overall prognosis is poor. . Code Status: No Code Plan * Patient is not capacitated to make his own health care decisions, uncertain if he will regain capacity. Mr. Cedillo has never completed written advanced directives. According to [place] Statues, medical proxy decision maker would fall to patient's spouse, patient Yuliya Henderson endorses she does wish to serve as healthcare proxy for this patient. Yuliya does also wish to involve patient mother with decision-making however at this time patient mother has expressed that she does not wish to speak with Yuliya. 01/14/18 patient able to communicate some via nodding and gesturing; he indicates he does not wish for his Yuliya to continue to get updates or service decision-maker. He is not able to indicate who he would want to make decisions, by [place] statutes proxy decision making would then fall to his mother if he has been able to express he does not want to be his estranged legal . * CODE STATUS : DNR * GOALS: Palliative and critical care has had multiple lengthy meetings with patient mother and proxy. She is considering possible compassionate withdrawal of life support and transition to comfort focus. She wishes to talk to additional family members in the coming days. No decisions are made at this time, she wishes to continue current treatments. She has voiced that she would not likely proceed with tracheostomy and PEG tube. * SYMPTOMS; pain: Some abdominal tenderness. Likely related to disease process. He does nod yes to pain though unable to further qualify or quantify due to intubation and limited communication. Avoiding sedating medications at this time due to pending medical extubation. Dyspnea: on mech vent, tolerating CPAP, though felt would likely require reintubation if extubated due to multiple organ dysfunction, body habitus. No new medication recommendations at this time. * Palliative care will continue to follow throughout hospitalization to assist with clarification of medical treatment goals and symptom management as needed. . Glo Morgan Jan 17, 2018 16:15
[2018-01-17] MEDS: SODIUM ACETATE IV-CENTRAL SCH ×9 (20:00)
[2018-01-17] MEDS ORDERED: POTASSIUM CHLORIDE IV-CENTRAL SCH ×9 (20:00)
[2018-01-17] MEDS: [UNRECOGNIZED DRUG - OTHER] IV-CENTRAL SCH ×9 (20:00)
[2018-01-17] MEDS ORDERED: [UNRECOGNIZED DRUG - OTHER] IV-CENTRAL SCH ×9 (20:00)
[2018-01-17] MEDS: POTASSIUM CHLORIDE IV-CENTRAL SCH ×9 (20:00)
[2018-01-17] MEDS ORDERED: SODIUM ACETATE IV-CENTRAL SCH ×9 (20:00)
[2018-01-18] VITALS (18 sets, daily range): BP systolic 130–147; BP diastolic 66–78; PULSE 94–108; RESP 15–22; TEMP 98.3–99.9; O2SAT 92–95
[2018-01-18] MEDS: FREE WATER G-TUBE SCH ×6 (00:33→20:00)
[2018-01-18] MEDS: PIPERACIL-TAZO 2.25 GM PREMIX 50 ML IV SCH ×4 (02:00→20:45)
[2018-01-18] MEDS: oxyCODONE HCL ORAL CONC 5 MG/0.25 ML SYRINGE PO PRN (03:02)
[2018-01-18] MEDS: RESP: ALBUTEROL 2.5 MG/IPRATROPIUM 0.5 MG NEB (SCH) NEB ×6 (03:56→22:56)
[2018-01-18] MEDS: CHLORHEXIDINE GLUCONATE 2 % 1 PACK (2 CLOTHS) TOP SCH (04:00)
[2018-01-18] MEDS: INSULIN NovoLIN REGULAR SUPPLEMENTAL SCALE SQ SCH ×5 (04:00→20:30)
[2018-01-18 05:56] LABS: HEMATOCRIT 27.2 % (39.0-51.0); MEAN CELL VOLUME 93.9 FL (80.0-100.0); MEAN PLATELET VOLUME 8.8 FL (7.0-11.0); PLATELET COUNT 253 TH/MM3 (150-450); RED CELL DISTRIBUTION WIDTH 24.7 % (11.6-17.2); WHITE BLOOD COUNT 20.3 TH/MM3 (4.0-11.0)
[2018-01-18] MEDS: METOCLOPRAMIDE HCL 10 MG/2 ML VIAL IV PUSH SCH ×3 (06:00→21:04)
[2018-01-18 06:05] LABS: INTERNATIONAL NORMALIZED RATIO 1.5 RATIO; PROTHROMBIN TIME - PATIENT 14.7 SEC (9.8-11.6)
[2018-01-18] MEDS: ARTIFICIAL TEARS OPTH SOLN 15 ML BTL EACH EYE SCH ×3 (06:12→22:41)
[2018-01-18 06:23] LABS: ALT (GPT) 93 U/L (12-78)
[2018-01-18 06:36] LABS: ALBUMIN 2.4 GM/DL (3.4-5.0); ALKALINE PHOSPHATASE 126 U/L (45-117); AST (GOT) 187 U/L (15-37); BICARBONATE 26.8 MEQ/L (21.0-32.0); BLOOD UREA NITROGEN 51 MG/DL (7-18); CALCIUM 9.8 MG/DL (8.5-10.1); CHLORIDE 116 MEQ/L (98-107); GLOMERULAR FILTRATION RATE 27 ML/MIN (>89); GLUCOSE,RANDOM 137 MG/DL (74-106); SODIUM (NA) 152 MEQ/L (136-145); TOTAL BILIRUBIN ADULT 20.4 MG/DL (0.2-1.0); TOTAL PROTEIN 6.7 GM/DL (6.4-8.2)
[2018-01-18] MEDS: PROPOFOL 1000 MG/100 ML INJ 100 ML IV PRN ×2 (07:22→20:44)
[2018-01-18] MEDS: THIAMINE HCL 100 MG TAB PO SCH (08:39)
[2018-01-18] MEDS: LACTULOSE SYRUP 20 GM/30 ML CUP PO SCH ×2 (08:39→20:44)
[2018-01-18] MEDS: PANTOPRAZOLE SODIUM 40 MG VIAL IV PUSH SCH ×2 (08:39→20:45)
[2018-01-18] MEDS: CHLORHEXIDINE 0.12% (ORAL KIT) 15 ML CUP MT SCH ×2 (08:40→20:00)
[2018-01-18] MEDS: SODIUM CHLORIDE 0.9% FLUSH 10 ML FLUSH IV FLUSH SCH (08:41)
[2018-01-18] MEDS ORDERED: POTASSIUM CHLOR 20 MEQ PREMIX 100 ML IV ONE (12:45)
[2018-01-18] MEDS: FLUCONAZOLE 100 MG PREMIX BAG 50 ML IV SCH (13:04)
--- NOTE | 2018-01-18 13:46 | HHI.NPPN ---
Subjective History of Present Illness 52-year-old male, Alcoholic hepatitis/cirrhosis received contrast study and acute renal failure Objective Data Data Vital Signs Date Time Temp Pulse Resp B/P (MAP) Pulse Ox O2 Delivery O2 Flow Rate FiO2 01/18/18 12:25 92 35 01/18/18 12:00 35 01/18/18 12:00 102 01/18/18 12:00 99.8 102 22 147/78 (101) 94 01/18/18 10:00 100 01/18/18 08:14 95 35 01/18/18 08:14 35 01/18/18 08:00 94 01/18/18 08:00 35 01/18/18 08:00 99.8 95 18 132/68 (89) 95 01/18/18 06:00 95 01/18/18 04:18 95 35 01/18/18 04:00 95 01/18/18 04:00 99.7 95 15 130/74 (92) 95 01/18/18 04:00 35 01/18/18 02:00 96 01/18/18 00:12 95 35 01/18/18 00:00 35 01/18/18 00:00 99 01/18/18 00:00 99.9 99 19 143/76 (98) 95 01/17/18 22:00 108 01/17/18 21:00 95 35 01/17/18 20:00 103 01/17/18 20:00 99.1 108 28 122/69 (86) 96 01/17/18 20:00 35 01/17/18 19:23 95 35 01/17/18 18:00 100 01/17/18 16:00 98 01/17/18 16:00 99.8 98 24 131/64 (86) 97 01/17/18 16:00 35 01/17/18 15:46 97 35 01/17/18 14:00 102 -: 01/18/18 0515 01/18/18 0515 Physical Exam General Appearance: Well Developed, Well Nourished Eyes Eye Exam: Jaundice Neck Neck Exam: Neck Supple Pulmonary Resp Exam: Clear Bilaterally, Diminished Breath Sounds Cardiology CV Exam: Regular, Normal Sinus Rhythm Gastrointestinal/Abdomen GI Exam: Soft, Distended Extremeties Extremities Exam: Moderate Edema Assessment/Plan Problem List: (1) Acute renal failure ICD Codes: N17.9 - Acute kidney failure, unspecified Plan: Patient has liver cirrhosis and possible hepatorenal syndrome is considered, unlikely as he is non oliguric. Some improvement in renal function. CR 2.5 UOP 2.4 L Hypernatremia is noted. fever noted Lasix 40 mg IV BID on hold getting free water hypotonic solution Na 152 (2) Upper GI bleed ICD Codes: K92.2 - Gastrointestinal hemorrhage, unspecified Plan: GI is following (3) Alcoholic cirrhosis ICD Codes: K70.30 - Alcoholic cirrhosis of liver without ascites Plan: Followed by GI (4) Coagulopathy ICD Codes: D68.9 - Coagulation defect, unspecified Plan: Patient has received blood product, FFP and PRBCs (5) Ascites ICD Codes: R18.8 - Other ascites Plan: Due to alcoholic cirrhosis Problem Qualifiers (1) Acute renal failure: Qualified Codes: N17.9 - Acute kidney failure, unspecified (2) Alcoholic cirrhosis: Qualified Codes: K70.31 - Alcoholic cirrhosis of liver with ascites (3) Ascites: Qualified Codes: K70.31 - Alcoholic cirrhosis of liver with ascites Ciro Elder MD Jan 18, 2018 13:46
--- NOTE | 2018-01-18 17:29 | HHI.CCPN ---
Subjective Remarks/Hospital Course Patient is a 52-year-old male with history of alcohol dependence, on chronic Coumadin for "abdominal vein thrombosis", history of hypertension who presented to the emergency department with complaints of increasing jaundice, increasing abdominal girth and vomiting jade blood multiple times over the last 2 days. Patient admits to being a heavy drinker he drinks about 1.75 L bottle hard liquor every 2 days. ER workup showed patient had a hemoglobin of 8.1, INR was 15.7. PTT 156.1, white count of 13.6 with 10% bands. Also sodium was noted to be 119, AST 439 ALT 115 and bilirubin of 7.6. A stat CT abdomen pelvis showed moderate ascites, probable cirrhosis and hepatic steatosis, splenomegaly, and gallstones. Patient had been ordered to receive 2 units of PRBC, and total 4 units of FFP. INR, Hb will be rechecked after this and additional FFP will be given accordingly. 10 mg vitamin K also ordered. Unfortunately hospital is out of [facility]. I evaluated the patient in the emergency department. He initially had an alcohol level of 135. At the time of my exam he is in moderate distress appears to be slightly tremulous. I have initiated CIWA protocol. I will also start its Rocephin for SBP prophylaxis. Patient had been started on IV Protonix infusion and octreotide which will be continued. Patient clinically also appears to have at least moderate ascites but I am unable to perform paracentesis due to elevated INR. 12/28: Currently resting in bed complaining of abdominal pain. Short of breath and tachypnea. Complaining of nausea currently. Remains on nasal cannula. Patient does not desire his mother's to have knowledge about his alcohol use. 12/29: Afebrile. Remains intubated post EGD yesterday due to worsening hypoxia. Currently on PSV trial 26/05 at 40%. Remains on dexmedetomidine drip and attempt to wean with alcohol use and likely progression to DTs. Banding of varices noted. Pentoxifylline 400 mg every 8 hours initiated with appropriate 12/30: Awake on dexmedetomidine drip at 1 mcg/kg/min. Following commands and attempting to write. Nods his head when states he feels the effects of alcohol withdrawals. Afebrile. Continues to leak from prior site of paracentesis. 12/31: Diminished urine output noted overnight. Increasing FiO2 requirement. Bladder pressures measured currently elevated around 25. Will place tube to suction and notify GI. Nephrology consult placed. Will need central line. 01/01: T-max 100. Currently 99. Meld score 34. Discriminant function is 34. Tamera alcohol scale score 7. Arousable the ventilator. FiO2 increased to 40- 60% overnight. 350 cc from NG tube overnight. 01/02: T-max 99.8. No bowel movement overnight. Abdomen remains distended. More ascites output from left lower quadrant previous paracentesis site. Arousable on the ventilator and follows commands on sedation vacation. Remains on PEEP of 12. FiO2 60%. 01/03: Patient remains intubated sedated very critical. FiO2 had to be increased to 70%. I have increase PEEP from 12-14. Chest x-ray remains unchanged. T-max 100.5. Urine output 1.3 L. BUN 42 creatinine 3.5 hemoglobin 7.4. Bedside ultrasound shows at least moderate ascites. Plan for thoracentesis for fluid removal and also will help with vent dynamic. 01/04: Persistent problems with oxygenation related to diffuse basilar atelectasis. Patient converted to airway pressure release ventilation this morning. Caloric intake probably on the high side in view of propofol infusion. Will reduce TPN to 60 cc/h. Enteral feedings at trickle rate. 01/05: Patient placed on APRV mode 01/04 with T-hi 5 sec Pres hi 30, with release volumes around 800 cc. Good oxygen saturation 30% FiO2. X-ray shows improvement in bilateral consolidation persistent left lower lobe infiltrate. Urine output 1.5 L also 1.5 L out from left paracentesis site. Transfuse 1 U PRBC 01/06: Remains critically ill but making some progress. Reduce PHigh to 26, T high to 4.5, if tolerated well, attempt to switch to PC/AC with PEEP 18-20 and rita iTime. Urine output adequate 2.3 L in 24 hours. Paracentesis site draining approximately 1.4 L despite paracentesis and removal of 3.5 L yesterday. Increase Lasix to 60 mg IV q6hr, Creat improved to 3.29 01/07: Oxygenation modestly improved with very aggressive mean airway pressures , continue PEEP 1820. Abdominal girth and ascites have conspired to reduce functional residual capacity. Now a permanent peritoneal drain is in place and we will attempt to make some progress with gas exchange. Between the intractable ascites, morbid obesity, and respiratory failure it will be very difficult to remove this patient from positive pressure ventilation. 01/08: ET tube has migrated above the vocal cords. Directly visualized with glide scope after receiving 40 mg etomidate. Cuff was deflated several times and advanced with adequate tidal volumes post advancement. Follow-up chest x- ray revealed adequate placement of ET tube. Remains on furosemide will change to drip today. 01/09: Afebrile. FiO2 down to 65%. Continues with profuse drainage from pigtail site. Not tolerating tube feeds. Hemoglobin 6.4 units PRBCs. Will transfuse 1 unit today. 01/10: FiO2 down to 40%. PEEP decreased to 12. Arousable on propofol and fentanyl drips and able to follow commands. Transfuse 1 additional unit PRBCs overnight hemoglobin currently 8.4. 01/11: T-max 99. PEEP decreased to 10. Continue to be aroused on propofol and fentanyl drips and follows commands. Hemoglobin stable 01/12: PEEP decreased from 10 - 8. Remains arousable on propofol and fentanyl drips and follows commands. Hemoglobin stable. A.m. labs from [facility] currently pending. 01/13: Afebrile. Currently awake and alert on the ventilator. Attempting CPAP trial 05/16 at 35%. No new issues overnight. 01/14: no improvements. awake on the ventilator. CAM-. capacitated. very weak. wbc continues to rise. MELD 29. overall very poor prognosis. had a discussion with the patient. he is too weak to write things down, but he can nod yes or no and give thumbs up/down. passed complete CAM-ICU assessment and not delirious. RASS 0 and oriented to person and place. difficult to assess time orientation. I explained his hospital course, along with all of the organ systems that were failing, and he nodded to express understanding. I told him that his ex- was legally still to him and legally his medical decision maker and she had been making healthcare decisions for him, and he expressed quite clearly that he did not want her to make decisions on his behalf. Palliative care was at bedside and confirmed this assessment. It is my assessment that the patient has full capacity to make decisions and to designate or un-designate healthcare surrogates. 01/15: T-max 99.9/also Tcurrent. Tolerated CPAP trial 12 hours yesterday however failed weaning parameters with high RSBI. Tube feeds have not been initiated. Positive BM 1. Continues with very slow drainage from prior pigtail catheter placed for abdominal ascites. Currently denying pain 01/16: back down to admission weight. all labs continue to worsen. MELD 31. remains febrile with elevated wbc. cultures NGTD. 01/17: no meaningful improvements. sodium rising. renal function essentially unchanged. LFTs still very elevated. cultures ngtd. wbc remains high despite empiric abx therapy. still febrile. Subjective 01/18: no changes. Cr 2.5 from 2.6. TBili remains over 20. febrile and wbc up to 20k despite addition of fungal coverage. no culture has grown anything. overall , very poor prognosis. mother continues to press on for aggressive care. Objective Vital Signs Date Time Temp Pulse Resp B/P (MAP) Pulse Ox O2 Delivery O2 Flow Rate FiO2 01/18/18 12:25 92 35 01/18/18 12:00 102 01/18/18 12:00 99.8 22 147/78 (101) 01/14/18 07:51 Ventilator Intake and Output 01/18/18 01/18/18 01/19/18 08:00 16:00 00:00 Intake Total 1350 ml 100 ml Output Total 1200 ml Balance 150 ml 100 ml Result Diagram: 01/18/18 0515 01/18/18 0515 Imaging Last Impressions Chest X-Ray 01/14/18 0600 Signed Impressions: CONCLUSION: Scattered patchy infiltrates in both lung bases. Abdomen X-Ray 01/03/18 0600 Signed Impressions: CONCLUSION: No dilated bowel. Liver Ultrasound 12/31/17 0000 Signed Impressions: CONCLUSION: 1. Diffuse increased echogenicity throughout the liver suggestive of fatty inf iltration and/or hepatocellular disease. 2. Hepatomegaly. 3. Thickened gallbladder wall at 12 mm. No definite gallstones are seen. As ca n be seen with chronic gallbladder disease. Aorta CTA 12/28/17 0000 Signed Impressions: Service Date/Time: Saturday, December 28, 2017 21:00 - CONCLUSION: 1. Normal thoracic and abdominal aorta. No dissection/aneurysm seen. 2. Bibasilar consolidation and patchy densities in the upper lobes. 3. Hepatic steatosis with possible cirrhosis and moderate abdominal ascites. 4. Cholelithiasis. Aldair Francis MD Abdomen/Pelvis CT 12/27/17 1922 Signed Impressions: Service Date/Time: Wednesday, December 27, 2017 21:00 - CONCLUSION: 1. Diffusely abnormal liver likely secondary to hepatic steatosis and possible changes of cirrhosis. 2. Splenomegaly. This could be secondary to portal hypertension. 3. Moderate ascites. 4. Calcified gallstone. Stefan Grier MD Gall Bladder Ultrasound 12/27/17 0000 Signed Impressions: Service Date/Time: Wednesday, December 27, 2017 21:16 - CONCLUSION: 1. Diffusely abnormal liver secondary to cirrhosis and hepatic steatosis. 2. Gallbladder wall thickening. This is nonspecific. This can be seen with hepatic disease. It also can be seen with cholecystitis in the correct clinical situation. Gallstones were not demonstrated on the ultrasound examination but are clearly present on the CT examination. Stefan Grier MD Procedures Paracentesis EGD Objective Remarks GENERAL: 52-year-old male lying in bed orotracheally intubated SKIN: Warm and dry. Jaundiced HEAD: Atraumatic. Normocephalic. EYES: Pupils equal and round about 3 millimeters, positive for conjunctival icterus. ENT: No nasal bleeding or discharge. Mucous membranes dry and pink. Orotracheally intubated NECK: Trachea midline. Cannot appreciate JVD due to body habitus. right IJ is clean dry and intact CARDIOVASCULAR: Regular rate and rhythm. Without murmur RESPIRATORY:Breath sounds equal bilaterally, but reduced anteriorly and in bases. GASTROINTESTINAL: Abdomen distended abdomen nontender obese. There is drainage from bilateral flanks, previous paracentesis sites. MUSCULOSKELETAL: Extremities -bilateral lower extreme 1+ pitting edema NEUROLOGICAL: Awake on the ventilator and moving all 4 extremities spontaneously. Follows simple commands such as thumbs up with bilateral hands. No obvious cranial nerve deficits. Motor grossly within normal limits. Date of Insertion: Jan 13, 2018 Line: Central Venous Catheter Side: Right Location: Internal, Jugular A/P Assessment and Plan NEURO/PSYCH: Alcohol withdrawal Alcohol dependence On propofol for sedation while intubated with as needed fentanyl drip Dexmedetomidine drip for vent weaning ordered Currently receiving thiamine 100 mg IV daily. Receiving multivitamin and folate and TPN RESP: Acute hypoxemic respiratory failure Likely OHS, STAS Ventilator bundle. Albuterol/ipratropium aerosols every 4 hours, albuterol aerosols every 2 hours as needed dyspnea Chest x-ray in 01/14-stable pulmonary edema/possible left lower lobe effusion. continue to hold lasix. CXR 01/16: unchanged. still failing SBT. still weak, volume overloaded. CV: History of hypertension -Holding amlodipine 5 mg due to GI bleed and Spironolactone 50 mg p.o. daily -Systolic hypertension. As needed labetalol, Nitropaste and nicardipine drip to maintain systolic blood pressure less than 170 -continue to hold lasix. GI: Upper GI bleed secondary to esophageal varices Ascites/abdominal Liver cirrhosis/hepatic steatosis Cholelithiasis Elevated lipase Elevated ammonia Hypoalbuminemia/moderate protein calorie malnutrition EGD 12/28 revealed -esophageal varices/nipple midesophagus with 3 bands noted. Portal gastropathy. Hiatal hernia. Repeat EGD per GI Dobbhoff tube now on trickle feeds with Nepro goal 50 cc an hour: increase TF to goal.. TPN at 42 mL: would ideally like to d/c TPN when at goal. Pentoxifylline 400 mg every 8 hours: hold this as it is unable to be crushed and placed in feeding tube. IV BID PPI. Status post paracentesis 12/28-3 L. repeat paracentesis with 3.5L removed CT abdomen/pelvis revealed no sequelae of pancreatitis. CT aorta revealed no signs of dissection or leakage. Lactulose 30 every 12 hours for elevated ammonia/BM Continue metoclopramide 5 every 8. Having BM 200 cc MELD score in a.m. 01/09 - . Similar findings since,although continues to worsen. MELD 01/16 - . FEN//Endo: Hypopotassemia Hypernatremia -Monitor renal function closely. Sliding scale insulin Accu-Cheks with NovoLog/low regimen every 4 hours to maintain euglycemia 10 units insulin in TPN continue free water 300 cc every 4 hours have adjusted NaAcet, KAcet, KCl to minimize sodium in TPN. ID: Probable sepsis Noted staph epi blood culture 12/31+ probable contamination Possible SBP -Klebsiella oxycota 01/07 continue zosyn (renally dosed) s/p linezolid continue diflucan empirically given he has been on TPN and fungemia may be a risk. persistent fevers and leukocytosis despite maximal therapy is concerning. Repeat sputum cx 01/05 no growth wbc continues to rise, as well as LFTs. peritoneal fluid: NGTD. Pertinent cultures 01/07 -peritoneal fluid -Klebsiella oxycota 12/31 -blood cultures 1 out of 4 staph epi. 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 Hb 8 INR 1.4 today. s/p 1 unit of PRBC 2017 and transfuse 3 units PRBCs 01/08. 2 unit PRBCs 01/09 -Serially monitor INR, phytonadione 5 mg given 12/31 and daily days has been completed -Hemoglobin level appear to have stabilized RENAL: Acute kidney injury- persistent, worsening. Possible hepatorenal syndrome Possible contrast nephropathy, vs HRS. Urine sodium 11. Urine creatinine elevated. Negative urine eosinophils. No hydronephrosis on CAT scan. Nephrology Dr. Elder. No hydronephrosis PROPH: -Bilateral lower extremity SCDs. IV pantoprazole twice daily. Chemical DVT prophylaxis is contraindicated at this time LINES: -left IJ CVL placed 12/31, d/c 01/13 - right IJ CVL placed 01/14 OVERALL IMPRESSION: critically ill. all organ systems worse. no improvements. if we withdraw support, he would . likely terminal disease process. for now, family presses on for aggressive measures. Woodrow Douglas MD Jan 18, 2018 17:29
[2018-01-18] MEDS: SODIUM ACETATE IV-CENTRAL SCH ×9 (20:45)
[2018-01-18] MEDS: [UNRECOGNIZED DRUG - OTHER] IV-CENTRAL SCH ×9 (20:45)
[2018-01-18] MEDS: POTASSIUM CHLORIDE IV-CENTRAL SCH ×9 (20:45)
[2018-01-19] VITALS (18 sets, daily range): BP systolic 128–145; BP diastolic 63–79; PULSE 76–98; RESP 18–22; TEMP 98.7–99.7; O2SAT 94–100
[2018-01-19] MEDS: PIPERACIL-TAZO 2.25 GM PREMIX 50 ML IV SCH ×4 (02:45→20:24)
[2018-01-19] MEDS: RESP: ALBUTEROL 2.5 MG/IPRATROPIUM 0.5 MG NEB (SCH) NEB ×6 (03:29→23:49)
[2018-01-19] MEDS: INSULIN NovoLIN REGULAR SUPPLEMENTAL SCALE SQ SCH ×6 (04:00→20:00)
[2018-01-19] MEDS: CHLORHEXIDINE GLUCONATE 2 % 1 PACK (2 CLOTHS) TOP SCH (04:00)
[2018-01-19] MEDS: FREE WATER G-TUBE SCH ×6 (04:00→20:00)
[2018-01-19 05:04] LABS: HEMATOCRIT 27.2 % (39.0-51.0); HEMOGLOBIN 8.9 GM/DL (13.0-17.0); MEAN CELL VOLUME 94.8 FL (80.0-100.0); MEAN CORPUSCULAR HEMOGLOBIN 30.9 PG (27.0-34.0); MEAN CORPUSCULAR HGB CONC 32.6 % (32.0-36.0); MEAN PLATELET VOLUME 9.2 FL (7.0-11.0); PLATELET COUNT 267 TH/MM3 (150-450); RED BLOOD COUNT 2.87 MIL/MM3 (4.50-5.90); RED CELL DISTRIBUTION WIDTH 25.6 % (11.6-17.2); WHITE BLOOD COUNT 19.8 TH/MM3 (4.0-11.0)
[2018-01-19 05:11] LABS: INTERNATIONAL NORMALIZED RATIO 1.4 RATIO; PROTHROMBIN TIME - PATIENT 14.6 SEC (9.8-11.6)
[2018-01-19 05:34] LABS: ALBUMIN 2.4 GM/DL (3.4-5.0); ALKALINE PHOSPHATASE 125 U/L (45-117); ALT (GPT) 85 U/L (12-78); AST (GOT) 170 U/L (15-37); BICARBONATE 26.1 MEQ/L (21.0-32.0); CALCIUM 9.7 MG/DL (8.5-10.1); CHLORIDE 115 MEQ/L (98-107); CREATININE 2.72 MG/DL (0.60-1.30); GLOMERULAR FILTRATION RATE 25 ML/MIN (>89); GLUCOSE,RANDOM 120 MG/DL (74-106); SODIUM (NA) 151 MEQ/L (136-145); TOTAL BILIRUBIN ADULT 21.2 MG/DL (0.2-1.0); TOTAL PROTEIN 6.9 GM/DL (6.4-8.2)
[2018-01-19 05:35] LABS: BLOOD UREA NITROGEN 56 MG/DL (7-18)
[2018-01-19] MEDS: PROPOFOL 1000 MG/100 ML INJ 100 ML IV PRN ×4 (05:59→20:49)
[2018-01-19] MEDS: ARTIFICIAL TEARS OPTH SOLN 15 ML BTL EACH EYE SCH ×3 (06:00→21:48)
[2018-01-19] MEDS: METOCLOPRAMIDE HCL 10 MG/2 ML VIAL IV PUSH SCH ×3 (06:00→21:48)
[2018-01-19] MEDS: THIAMINE HCL 100 MG TAB PO SCH ×2 (08:38→08:52)
[2018-01-19] MEDS: PANTOPRAZOLE SODIUM 40 MG VIAL IV PUSH SCH ×2 (08:39→20:25)
[2018-01-19] MEDS: SODIUM CHLORIDE 0.9% FLUSH 10 ML FLUSH IV FLUSH SCH (08:39)
[2018-01-19] MEDS: LACTULOSE SYRUP 20 GM/30 ML CUP PO SCH ×3 (08:39→19:44)
[2018-01-19] MEDS: CHLORHEXIDINE 0.12% (ORAL KIT) 15 ML CUP MT SCH ×2 (08:40→20:24)
--- NOTE | 2018-01-19 10:47 | HHI.NPPN ---
Subjective History of Present Illness 52-year-old male, Alcoholic hepatitis/cirrhosis received contrast study and acute renal failure Objective Data Data Vital Signs Date Time Temp Pulse Resp B/P (MAP) Pulse Ox O2 Delivery O2 Flow Rate FiO2 01/19/18 10:00 87 01/19/18 08:00 76 01/19/18 08:00 35 01/19/18 08:00 99.6 94 18 141/68 (92) 95 01/19/18 07:51 35 01/19/18 07:51 98 35 01/19/18 06:00 92 01/19/18 04:00 98.7 92 21 145/70 (95) 94 01/19/18 04:00 35 01/19/18 04:00 92 01/19/18 03:31 94 35 01/19/18 02:00 98 01/19/18 00:00 35 01/19/18 00:00 96 01/19/18 00:00 99.7 96 22 137/63 (87) 96 01/18/18 22:56 93 35 01/18/18 22:00 108 01/18/18 20:41 94 35 01/18/18 20:00 35 01/18/18 20:00 98.5 104 18 146/71 (96) 94 01/18/18 20:00 104 01/18/18 19:32 35 01/18/18 18:00 98 01/18/18 16:00 98 01/18/18 16:00 35 01/18/18 16:00 98.3 98 20 137/66 (89) 94 01/18/18 14:00 98 01/18/18 12:25 92 35 01/18/18 12:00 35 01/18/18 12:00 102 01/18/18 12:00 99.8 102 22 147/78 (101) 94 -: 01/19/18 0440 01/19/18 0440 Physical Exam General Appearance: Well Developed, Well Nourished Eyes Eye Exam: Jaundice Neck Neck Exam: Neck Supple Pulmonary Resp Exam: Clear Bilaterally, Diminished Breath Sounds Cardiology CV Exam: Regular, Normal Sinus Rhythm Gastrointestinal/Abdomen GI Exam: Soft, Distended Extremeties Extremities Exam: Moderate Edema Assessment/Plan Problem List: (1) Acute renal failure ICD Codes: N17.9 - Acute kidney failure, unspecified Plan: Patient has liver cirrhosis and possible hepatorenal syndrome is considered, unlikely as he is non oliguric. Some improvement in renal function. CR 2.7 UOP 1.7 L Hypernatremia is noted. f Lasix 40 mg IV BID on hold getting free water hypotonic solution Na 151 Inc LFT (2) Upper GI bleed ICD Codes: K92.2 - Gastrointestinal hemorrhage, unspecified Plan: GI is following (3) Alcoholic cirrhosis ICD Codes: K70.30 - Alcoholic cirrhosis of liver without ascites Plan: Followed by GI (4) Coagulopathy ICD Codes: D68.9 - Coagulation defect, unspecified Plan: Patient has received blood product, FFP and PRBCs (5) Ascites ICD Codes: R18.8 - Other ascites Plan: Due to alcoholic cirrhosis Problem Qualifiers (1) Acute renal failure: Qualified Codes: N17.9 - Acute kidney failure, unspecified (2) Alcoholic cirrhosis: Qualified Codes: K70.31 - Alcoholic cirrhosis of liver with ascites (3) Ascites: Qualified Codes: K70.31 - Alcoholic cirrhosis of liver with ascites Ciro Elder MD Jan 19, 2018 10:47
--- NOTE | 2018-01-19 12:22 | HHI.CCPN ---
Subjective Remarks/Hospital Course Patient is a 52-year-old male with history of alcohol dependence, on chronic Coumadin for "abdominal vein thrombosis", history of hypertension who presented to the emergency department with complaints of increasing jaundice, increasing abdominal girth and vomiting jade blood multiple times over the last 2 days. Patient admits to being a heavy drinker he drinks about 1.75 L bottle hard liquor every 2 days. ER workup showed patient had a hemoglobin of 8.1, INR was 15.7. PTT 156.1, white count of 13.6 with 10% bands. Also sodium was noted to be 119, AST 439 ALT 115 and bilirubin of 7.6. A stat CT abdomen pelvis showed moderate ascites, probable cirrhosis and hepatic steatosis, splenomegaly, and gallstones. Patient had been ordered to receive 2 units of PRBC, and total 4 units of FFP. INR, Hb will be rechecked after this and additional FFP will be given accordingly. 10 mg vitamin K also ordered. Unfortunately hospital is out of [facility]. I evaluated the patient in the emergency department. He initially had an alcohol level of 135. At the time of my exam he is in moderate distress appears to be slightly tremulous. I have initiated CIWA protocol. I will also start its Rocephin for SBP prophylaxis. Patient had been started on IV Protonix infusion and octreotide which will be continued. Patient clinically also appears to have at least moderate ascites but I am unable to perform paracentesis due to elevated INR. 12/28: Currently resting in bed complaining of abdominal pain. Short of breath and tachypnea. Complaining of nausea currently. Remains on nasal cannula. Patient does not desire his mother's to have knowledge about his alcohol use. 12/29: Afebrile. Remains intubated post EGD yesterday due to worsening hypoxia. Currently on PSV trial 26/05 at 40%. Remains on dexmedetomidine drip and attempt to wean with alcohol use and likely progression to DTs. Banding of varices noted. Pentoxifylline 400 mg every 8 hours initiated with appropriate 12/30: Awake on dexmedetomidine drip at 1 mcg/kg/min. Following commands and attempting to write. Nods his head when states he feels the effects of alcohol withdrawals. Afebrile. Continues to leak from prior site of paracentesis. 12/31: Diminished urine output noted overnight. Increasing FiO2 requirement. Bladder pressures measured currently elevated around 25. Will place tube to suction and notify GI. Nephrology consult placed. Will need central line. 01/01: T-max 100. Currently 99. Meld score 34. Discriminant function is 34. Tamera alcohol scale score 7. Arousable the ventilator. FiO2 increased to 40- 60% overnight. 350 cc from NG tube overnight. 01/02: T-max 99.8. No bowel movement overnight. Abdomen remains distended. More ascites output from left lower quadrant previous paracentesis site. Arousable on the ventilator and follows commands on sedation vacation. Remains on PEEP of 12. FiO2 60%. 01/03: Patient remains intubated sedated very critical. FiO2 had to be increased to 70%. I have increase PEEP from 12-14. Chest x-ray remains unchanged. T-max 100.5. Urine output 1.3 L. BUN 42 creatinine 3.5 hemoglobin 7.4. Bedside ultrasound shows at least moderate ascites. Plan for thoracentesis for fluid removal and also will help with vent dynamic. 01/04: Persistent problems with oxygenation related to diffuse basilar atelectasis. Patient converted to airway pressure release ventilation this morning. Caloric intake probably on the high side in view of propofol infusion. Will reduce TPN to 60 cc/h. Enteral feedings at trickle rate. 01/05: Patient placed on APRV mode 01/04 with T-hi 5 sec Pres hi 30, with release volumes around 800 cc. Good oxygen saturation 30% FiO2. X-ray shows improvement in bilateral consolidation persistent left lower lobe infiltrate. Urine output 1.5 L also 1.5 L out from left paracentesis site. Transfuse 1 U PRBC 01/06: Remains critically ill but making some progress. Reduce PHigh to 26, T high to 4.5, if tolerated well, attempt to switch to PC/AC with PEEP 18-20 and rita iTime. Urine output adequate 2.3 L in 24 hours. Paracentesis site draining approximately 1.4 L despite paracentesis and removal of 3.5 L yesterday. Increase Lasix to 60 mg IV q6hr, Creat improved to 3.29 01/07: Oxygenation modestly improved with very aggressive mean airway pressures , continue PEEP 1820. Abdominal girth and ascites have conspired to reduce functional residual capacity. Now a permanent peritoneal drain is in place and we will attempt to make some progress with gas exchange. Between the intractable ascites, morbid obesity, and respiratory failure it will be very difficult to remove this patient from positive pressure ventilation. 01/08: ET tube has migrated above the vocal cords. Directly visualized with glide scope after receiving 40 mg etomidate. Cuff was deflated several times and advanced with adequate tidal volumes post advancement. Follow-up chest x- ray revealed adequate placement of ET tube. Remains on furosemide will change to drip today. 01/09: Afebrile. FiO2 down to 65%. Continues with profuse drainage from pigtail site. Not tolerating tube feeds. Hemoglobin 6.4 units PRBCs. Will transfuse 1 unit today. 01/10: FiO2 down to 40%. PEEP decreased to 12. Arousable on propofol and fentanyl drips and able to follow commands. Transfuse 1 additional unit PRBCs overnight hemoglobin currently 8.4. 01/11: T-max 99. PEEP decreased to 10. Continue to be aroused on propofol and fentanyl drips and follows commands. Hemoglobin stable 01/12: PEEP decreased from 10 - 8. Remains arousable on propofol and fentanyl drips and follows commands. Hemoglobin stable. A.m. labs from [facility] currently pending. 01/13: Afebrile. Currently awake and alert on the ventilator. Attempting CPAP trial 05/16 at 35%. No new issues overnight. 01/14: no improvements. awake on the ventilator. CAM-. capacitated. very weak. wbc continues to rise. MELD 29. overall very poor prognosis. had a discussion with the patient. he is too weak to write things down, but he can nod yes or no and give thumbs up/down. passed complete CAM-ICU assessment and not delirious. RASS 0 and oriented to person and place. difficult to assess time orientation. I explained his hospital course, along with all of the organ systems that were failing, and he nodded to express understanding. I told him that his ex- was legally still to him and legally his medical decision maker and she had been making healthcare decisions for him, and he expressed quite clearly that he did not want her to make decisions on his behalf. Palliative care was at bedside and confirmed this assessment. It is my assessment that the patient has full capacity to make decisions and to designate or un-designate healthcare surrogates. 01/15: T-max 99.9/also Tcurrent. Tolerated CPAP trial 12 hours yesterday however failed weaning parameters with high RSBI. Tube feeds have not been initiated. Positive BM 1. Continues with very slow drainage from prior pigtail catheter placed for abdominal ascites. Currently denying pain 01/16: back down to admission weight. all labs continue to worsen. MELD 31. remains febrile with elevated wbc. cultures NGTD. 01/17: no meaningful improvements. sodium rising. renal function essentially unchanged. LFTs still very elevated. cultures ngtd. wbc remains high despite empiric abx therapy. still febrile. 01/18: no changes. Cr 2.5 from 2.6. TBili remains over 20. febrile and wbc up to 20k despite addition of fungal coverage. no culture has grown anything. overall , very poor prognosis. mother continues to press on for aggressive care. Subjective 01/19: no improvements. Cr up to 2.7. TBili 21. still spiking fevers. mother continues to press for aggressive care, although we do not have much more to offer. Objective Vital Signs Date Time Temp Pulse Resp B/P (MAP) Pulse Ox O2 Delivery O2 Flow Rate FiO2 01/19/18 12:02 98 35 01/19/18 10:00 87 01/19/18 08:00 99.6 18 141/68 (92) Intake and Output 01/19/18 01/19/18 01/20/18 08:00 16:00 00:00 Intake Total 150 ml 150 ml Output Total 1000 ml Balance -850 ml 150 ml Result Diagram: 01/19/180 01/19/18 0440 Imaging Last Impressions Chest X-Ray 01/14/18 06 Signed Impressions: CONCLUSION: Scattered patchy infiltrates in both lung bases. Abdomen X-Ray 01/03/18 0600 Signed Impressions: CONCLUSION: No dilated bowel. Liver Ultrasound 12/31/17 0000 Signed Impressions: CONCLUSION: 1. Diffuse increased echogenicity throughout the liver suggestive of fatty inf iltration and/or hepatocellular disease. 2. Hepatomegaly. 3. Thickened gallbladder wall at 12 mm. No definite gallstones are seen. As ca n be seen with chronic gallbladder disease. Aorta CTA 12/28/17 0000 Signed Impressions: Service Date/Time: Thursday, December 28, 2017 21:00 - CONCLUSION: 1. Normal thoracic and abdominal aorta. No dissection/aneurysm seen. 2. Bibasilar consolidation and patchy densities in the upper lobes. 3. Hepatic steatosis with possible cirrhosis and moderate abdominal ascites. 4. Cholelithiasis. Aldair Francis MD Abdomen/Pelvis CT 12/27/17 192 Signed Impressions: Service Date/Time: Wednesday, December 27, 2017 21:00 - CONCLUSION: 1. Diffusely abnormal liver likely secondary to hepatic steatosis and possible changes of cirrhosis. 2. Splenomegaly. This could be secondary to portal hypertension. 3. Moderate ascites. 4. Calcified gallstone. Stefan Grier MD Gall Bladder Ultrasound 12/27/17 0000 Signed Impressions: Service Date/Time: Wednesday, December 27, 2017 21:16 - CONCLUSION: 1. Diffusely abnormal liver secondary to cirrhosis and hepatic steatosis. 2. Gallbladder wall thickening. This is nonspecific. This can be seen with hepatic disease. It also can be seen with cholecystitis in the correct clinical situation. Gallstones were not demonstrated on the ultrasound examination but are clearly present on the CT examination. Stefan Grier MD Procedures Paracentesis EGD Objective Remarks GENERAL: 52-year-old male lying in bed orotracheally intubated SKIN: Warm and dry. Jaundiced HEAD: Atraumatic. Normocephalic. EYES: Pupils equal and round about 3 millimeters, positive for conjunctival icterus. ENT: No nasal bleeding or discharge. Mucous membranes dry and pink. Orotracheally intubated NECK: Trachea midline. Cannot appreciate JVD due to body habitus. right IJ is clean dry and intact CARDIOVASCULAR: Regular rate and rhythm. Without murmur RESPIRATORY:Breath sounds equal bilaterally, but reduced anteriorly and in bases. GASTROINTESTINAL: Abdomen distended abdomen nontender obese. There is drainage from bilateral flanks, previous paracentesis sites. MUSCULOSKELETAL: Extremities -bilateral lower extreme 1+ pitting edema NEUROLOGICAL: Awake on the ventilator and moving all 4 extremities spontaneously. Follows simple commands such as thumbs up with bilateral hands. No obvious cranial nerve deficits. Motor grossly within normal limits. Date of Insertion: Jan 13, 2018 Line: Central Venous Catheter Side: Right Location: Internal, Jugular A/P Assessment and Plan NEURO/PSYCH: Alcohol withdrawal Alcohol dependence On propofol for sedation while intubated with as needed fentanyl drip Dexmedetomidine drip for vent weaning ordered Currently receiving thiamine 100 mg IV daily. Receiving multivitamin and folate and TPN RESP: Acute hypoxemic respiratory failure Likely OHS, STAS Ventilator bundle. Albuterol/ipratropium aerosols every 4 hours, albuterol aerosols every 2 hours as needed dyspnea Chest x-ray in 01/14-stable pulmonary edema/possible left lower lobe effusion. continue to hold lasix. CXR 01/16: unchanged. still failing SBT. still weak, volume overloaded. CV: History of hypertension -Holding amlodipine 5 mg due to GI bleed and Spironolactone 50 mg p.o. daily -Systolic hypertension. As needed labetalol, Nitropaste and nicardipine drip to maintain systolic blood pressure less than 170 -continue to hold lasix. GI: Upper GI bleed secondary to esophageal varices Ascites/abdominal Liver cirrhosis/hepatic steatosis Cholelithiasis Elevated lipase Elevated ammonia Hypoalbuminemia/moderate protein calorie malnutrition EGD 12/28 revealed -esophageal varices/nipple midesophagus with 3 bands noted. Portal gastropathy. Hiatal hernia. Repeat EGD per GI Dobbhoff tube now on trickle feeds with Nepro goal 50 cc an hour: increase TF to goal.. TPN at 42 mL: would ideally like to d/c TPN when at goal. Pentoxifylline 400 mg every 8 hours: hold this as it is unable to be crushed and placed in feeding tube. IV BID PPI. Status post paracentesis 12/28-3 L. repeat paracentesis with 3.5L removed CT abdomen/pelvis revealed no sequelae of pancreatitis. CT aorta revealed no signs of dissection or leakage. Lactulose 30 every 12 hours for elevated ammonia/BM Continue metoclopramide 5 every 8. Having BM 200 cc MELD score in a.m. 01/09 - . Similar findings since,although continues to worsen. MELD 01/16 - . MELD 01/19 - . FEN//Endo: Hypopotassemia Hypernatremia -Monitor renal function closely. Sliding scale insulin Accu-Cheks with NovoLog/low regimen every 4 hours to maintain euglycemia 10 units insulin in TPN continue free water 300 cc every 4 hours add 1/4 NS @ 42 mL/hr. have adjusted NaAcet, KAcet, KCl to minimize sodium in TPN. ID: Probable sepsis Noted staph epi blood culture 12/31+ probable contamination Possible SBP -Klebsiella oxycota 01/07 continue zosyn (renally dosed) s/p linezolid continue diflucan empirically given he has been on TPN and fungemia may be a risk. persistent fevers and leukocytosis despite maximal therapy is concerning. Repeat sputum cx 01/05 no growth wbc continues to rise, as well as LFTs. peritoneal fluid: NGTD. Pertinent cultures 01/07 -peritoneal fluid -Klebsiella oxycota 12/31 -blood cultures 1 out of 4 staph epi. 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 Hb 8 INR 1.4 today. s/p 1 unit of PRBC 2017 and transfuse 3 units PRBCs 01/08. 2 unit PRBCs 01/09 -Serially monitor INR, phytonadione 5 mg given 12/31 and daily days has been completed -Hemoglobin level appear to have stabilized RENAL: Acute kidney injury- persistent, worsening. Possible hepatorenal syndrome Possible contrast nephropathy, vs HRS. Urine sodium 11. Urine creatinine elevated. Negative urine eosinophils. No hydronephrosis on CAT scan. Nephrology Dr. Elder. No hydronephrosis PROPH: -Bilateral lower extremity SCDs. IV pantoprazole twice daily. Chemical DVT prophylaxis is contraindicated at this time LINES: -left IJ CVL placed 12/31, d/c 01/13 - right IJ CVL placed 01/14 OVERALL IMPRESSION: critically ill. all organ systems worse. no improvements. if we withdraw support, he would . likely terminal disease process. for now, family presses on for aggressive measures. Woodrow Douglas MD Jan 19, 2018 12:22
[2018-01-19] MEDS ORDERED: SODIUM CHLORIDE 23.4% INJ 38.5 MEQ in WATER STERILE FOR INJ 1,000 ML IV SCH (12:30)
[2018-01-19] MEDS: FLUCONAZOLE 100 MG PREMIX BAG 50 ML IV SCH (13:36)
[2018-01-19] MEDS ORDERED: MAGNESIUM CHLORIDE IV-CENTRAL SCH ×9 (20:00)
[2018-01-19] MEDS ORDERED: POTASSIUM CHLORIDE IV-CENTRAL SCH ×9 (20:00)
[2018-01-19] MEDS ORDERED: SODIUM ACETATE IV-CENTRAL SCH ×9 (20:00)
[2018-01-19] MEDS ORDERED: [UNRECOGNIZED DRUG - OTHER] IV-CENTRAL SCH ×9 (20:00)
[2018-01-19] MEDS: MAGNESIUM CHLORIDE IV-CENTRAL SCH ×8 (20:27)
[2018-01-19] MEDS: POTASSIUM CHLORIDE IV-CENTRAL SCH ×8 (20:27)
[2018-01-19] MEDS: [UNRECOGNIZED DRUG - OTHER] IV-CENTRAL SCH ×8 (20:27)
[2018-01-20] VITALS (17 sets, daily range): BP systolic 109–133; BP diastolic 55–67; PULSE 76–96; RESP 21–35; TEMP 98.4–99.9; O2SAT 94–100
[2018-01-20] MEDS: PIPERACIL-TAZO 2.25 GM PREMIX 50 ML IV SCH ×4 (01:12→20:49)
[2018-01-20] MEDS: PROPOFOL 1000 MG/100 ML INJ 100 ML IV PRN ×7 (01:12→23:41)
[2018-01-20] MEDS: RESP: ALBUTEROL 2.5 MG/IPRATROPIUM 0.5 MG NEB (SCH) NEB ×5 (03:36→19:35)
[2018-01-20] MEDS: INSULIN NovoLIN REGULAR SUPPLEMENTAL SCALE SQ SCH ×7 (04:00→23:24)
[2018-01-20] MEDS: FREE WATER G-TUBE SCH ×7 (04:00→23:24)
[2018-01-20] MEDS: CHLORHEXIDINE GLUCONATE 2 % 1 PACK (2 CLOTHS) TOP SCH (04:53)
[2018-01-20 05:38] LABS: HEMATOCRIT 27.3 % (39.0-51.0); HEMOGLOBIN 8.8 GM/DL (13.0-17.0); MEAN CELL VOLUME 95.3 FL (80.0-100.0); MEAN CORPUSCULAR HEMOGLOBIN 30.7 PG (27.0-34.0); MEAN CORPUSCULAR HGB CONC 32.2 % (32.0-36.0); MEAN PLATELET VOLUME 9.4 FL (7.0-11.0); PLATELET COUNT 280 TH/MM3 (150-450); RED BLOOD COUNT 2.87 MIL/MM3 (4.50-5.90); RED CELL DISTRIBUTION WIDTH 26.5 % (11.6-17.2); WHITE BLOOD COUNT 17.4 TH/MM3 (4.0-11.0)
[2018-01-20 05:41] LABS: INTERNATIONAL NORMALIZED RATIO 1.4 RATIO; PROTHROMBIN TIME - PATIENT 14.4 SEC (9.8-11.6)
[2018-01-20] MEDS: ARTIFICIAL TEARS OPTH SOLN 15 ML BTL EACH EYE SCH ×3 (05:42→22:34)
[2018-01-20] MEDS: METOCLOPRAMIDE HCL 10 MG/2 ML VIAL IV PUSH SCH ×3 (05:42→20:50)
[2018-01-20 06:07] LABS: ALBUMIN 2.2 GM/DL (3.4-5.0); ALKALINE PHOSPHATASE 117 U/L (45-117); ALT (GPT) 79 U/L (12-78); AST (GOT) 167 U/L (15-37); BICARBONATE 23.7 MEQ/L (21.0-32.0); CALCIUM 9.6 MG/DL (8.5-10.1); CHLORIDE 114 MEQ/L (98-107); GLOMERULAR FILTRATION RATE 19 ML/MIN (>89); GLUCOSE,RANDOM 118 MG/DL (74-106); SODIUM (NA) 149 MEQ/L (136-145); TOTAL BILIRUBIN ADULT 19.2 MG/DL (0.2-1.0); TOTAL PROTEIN 6.5 GM/DL (6.4-8.2)
[2018-01-20 06:09] LABS: BLOOD UREA NITROGEN 75 MG/DL (7-18)
[2018-01-20] MEDS: CHLORHEXIDINE 0.12% (ORAL KIT) 15 ML CUP MT SCH ×2 (08:00→20:39)
[2018-01-20] MEDS: THIAMINE HCL 100 MG TAB PO SCH (08:25)
[2018-01-20] MEDS: PANTOPRAZOLE SODIUM 40 MG VIAL IV PUSH SCH ×2 (08:25→20:49)
[2018-01-20] MEDS: LACTULOSE SYRUP 20 GM/30 ML CUP PO SCH ×2 (08:25→20:49)
[2018-01-20] MEDS: SODIUM CHLORIDE 0.9% FLUSH 10 ML FLUSH IV FLUSH SCH (09:00)
[2018-01-20] MEDS: FLUCONAZOLE 100 MG PREMIX BAG 50 ML IV SCH (12:48)
--- NOTE | 2018-01-20 14:50 | HHI.HCPN ---
Reason for visit a. To assist with evaluation and management of symptoms including: dyspnea, pain. b. To assist medical decision maker(s) with: better understanding of current medical conditions; weighing benefits/burdens of medical treatment options; making medical treatment decisions. . (Glo Morgan) Subjective/Interval History Patient seen to follow-up today on comfort, updates to legal decision maker. Received a call prior to my arrival on unit with nurse reporting pt mother at bedside requesting update/questions. WBC remains elevated at 17.4. H&H slowly downtrending 8.8/27.3. Total bilirubin remains elevated at 19.2. BUN and creatinine significantly worse 75/ 3.5. GFR 19. Remains on mechanical vent, significant tachypnea, vent asynchrony over the weekend unable to tolerate prolonged CPAP trials. Overall remains critically ill multiorgan issues prognosis for survival poor. Patient seen in room, dual visit with Mary Beth FERNANDES. Discussed with primary nurse. Patient remains on sedation to prevent 30 mics/kilogram/minute. He appears comfortable. No apparent distress no significant vent asynchrony or tachypnea. Discussed with critical care, primary nurse. Met with patient mother at bedside. She indicates she just spoke with critical care attending and received complete medical update. She understands renal functions are worsening. She understands liver functions are no better. She understands he has multiorgan sickness for which he is still very high risk to continue to decline. She tells me she is still praying for a miracle. She has questions regarding decision-maker status and why she was not asked sooner about who he would want us decision-maker, she still expresses frustration that the patient's was used as proxy until he could further clarify. Advised that we follow [place] statutes and I cannot speak to what patient was or was not able to communicate before we were involved in assessing this patient. She also has questions about how to handle affairs if patient dies in terms of legal standpoint advised she may wish to follow-up with her personal corporate attorney regarding this. She has been speaking with the rest of the family in terms of his grave condition, she has made no further decisions at this time regarding the escalation of treatment. She wishes to continue current treatments at this time she is not giving up hope that patient might improve. . (Glo Morgan) Advance Directives Living Will: Never completed Health Care Surrogate: Never completed Durable Power of Presales Consultant: Never completed (Glo Morgan) Advance Directive Specifics Health Care Surrogate(s): Documented care wishes: No written advanced directives. . (Glo Morgan) Objective Vital Signs Date Time Temp Pulse Resp B/P (MAP) Pulse Ox O2 Delivery O2 Flow Rate FiO2 01/20/18 12:04 100 35 01/20/18 09:46 35 01/20/18 08:00 86 01/20/18 08:00 98.4 86 23 119/58 (78) 100 01/20/18 08:00 35 01/20/18 07:17 100 35 01/20/18 07:00 100 Mechanical Ventilator 35 01/20/18 06:00 82 01/20/18 04:00 84 01/20/18 04:00 35 01/20/18 04:00 99.3 84 21 126/60 (82) 96 01/20/18 03:37 95 35 01/20/18 02:00 84 01/20/18 00:00 78 01/20/18 00:00 99.1 78 22 123/56 (78) 98 01/20/18 00:00 35 01/19/18 23:48 98 35 01/19/18 22:00 80 01/19/18 20:00 99.7 84 22 128/66 (86) 100 01/19/18 20:00 35 01/19/18 20:00 84 01/19/18 19:54 100 35 01/19/18 19:00 98 Mechanical Ventilator 35 01/19/18 18:00 84 01/19/18 16:00 99.6 90 22 136/68 (90) 98 01/19/18 16:00 90 01/19/18 16:00 35 01/19/18 15:32 100 35 Intake & Output 01/20/18 01/20/18 07:00 19:00 Intake Total 400 ml Output Total 500 ml Balance -100 ml IV Total 400 ml Output Urine Total 450 ml Stool Total 50 ml Physical Exam CONSTITUTIONAL/GENERAL: This is a critically ill, obese male, in no apparent distress. TUBES/LINES/DRAINS: ETT, Dobbhoff right nare, rt jugular central line, PIV x 2 bilateral soft wrist restraints, Key, rectal tube, SCDs. SKIN: + jaundice. Ecchymoses on upper extremities. Skin warm/dry EYES: Pupils equal and round and reactive. + scleral icterus, slight scleral edema. No injection or drainage. Fundi not examined. ENT: Nose without bleeding or purulent drainage. Throat difficult to visualize due to tubes. CARDIOVASCULAR: Regular rate and rhythm without murmurs. 2-3+ general edema RESPIRATORY/CHEST: On mech vent, respirations even/unlabored via ETT, cpap. tachypneic respiratory rate 26 . scattered rhonchi. Breath sounds equal and diminished bilaterally. GASTROINTESTINAL: Abdomen protuberant, distended, slightly firm, Bowel sounds infrequent GENITOURINARY: Without palpable bladder distension. Key catheter in place dark orange/brown urine. MUSCULOSKELETAL: Lower extremities with slightly improved edema. Upper extremities with slightly improved edema. NEUROLOGICAL: alert, nods to some yes/no questions though not consistently. follows simple commands-- moves all 4 extremities to commands. Trying to mouth words and gesture but I am unable to understand. PSYCHIATRIC: mildly tachypneic/anxious at times. . (Glo Morgan) Physical Exam CONSTITUTIONAL/GENERAL: critically ill, obese male, in no apparent distress. TUBES/LINES/DRAINS: ETT, Dobbhoff right nare, rt jugular central line, bilateral soft wrist restraints, Key, rectal tube, SCDs. SKIN: + significant jaundice EYES: + scleral icterus, slight scleral edema. ENT: Nose without bleeding or purulent drainage. CARDIOVASCULAR: RRR. generalized edema RESPIRATORY/CHEST: On mech vent, respirations even/unlabored via ETT,PRVC. breath sounds coarse. GASTROINTESTINAL: abd distended, semifirm, bowel sounds faint GENITOURINARY: Without palpable bladder distension. Key catheter in place dark tea colored urine MUSCULOSKELETAL: Lower extremities trace edema right> left. NEUROLOGICAL: not responsive, sedated on vent PSYCHIATRIC: unable to assess, sedated on vent (Paula Shultz) Diagnostic Tests Laboratory Laboratory Tests Test 01/18/18 05:15 01/19/18 04:40 01/20/18 05:00 White Blood Count 20.3 TH/MM3 (4.0-11.0) 19.8 TH/MM3 (4.0-11.0) 17.4 TH/MM3 (4.0-11.0) Red Blood Count 2.90 MIL/MM3 (4.50-5.90) 2.87 MIL/MM3 (4.50-5.90) 2.87 MIL/MM3 (4.50-5.90) Hemoglobin 9.0 GM/DL (13.0-17.0) 8.9 GM/DL (13.0-17.0) 8.8 GM/DL (13.0-17.0) Hematocrit 27.2 % (39.0-51.0) 27.2 % (39.0-51.0) 27.3 % (39.0-51.0) Mean Corpuscular Volume 93.9 FL (80.0-100.0) 94.8 FL (80.0-100.0) 95.3 FL (80.0-100.0) Mean Corpuscular Hemoglobin 31.0 PG (27.0-34.0) 30.9 PG (27.0-34.0) 30.7 PG (27.0-34.0) Mean Corpuscular Hemoglobin Concent 33.0 % (32.0-36.0) 32.6 % (32.0-36.0) 32.2 % (32.0-36.0) Red Cell Distribution Width 24.7 % (11.6-17.2) 25.6 % (11.6-17.2) 26.5 % (11.6-17.2) Platelet Count 253 TH/MM3 (150-450) 267 TH/MM3 (150-450) 280 TH/MM3 (150-450) Mean Platelet Volume 8.8 FL (7.0-11.0) 9.2 FL (7.0-11.0) 9.4 FL (7.0-11.0) Prothrombin Time 14.7 SEC (9.8-11.6) 14.6 SEC (9.8-11.6) 14.4 SEC (9.8-11.6) Prothromb Time International Ratio 1.5 RATIO 1.4 RATIO 1.4 RATIO Activated Partial Thromboplast Time 32.6 SEC (24.3-30.1) 33.7 SEC (24.3-30.1) 31.3 SEC (24.3-30.1) Blood Urea Nitrogen 51 MG/DL (7-18) 56 MG/DL (7-18) 75 MG/DL (7-18) Creatinine 2.50 MG/DL (0.60-1.30) 2.72 MG/DL (0.60-1.30) 3.50 MG/DL (0.60-1.30) Random Glucose 137 MG/DL (74-106) 120 MG/DL (74-106) 118 MG/DL (74-106) Total Protein 6.7 GM/DL (6.4-8.2) 6.9 GM/DL (6.4-8.2) 6.5 GM/DL (6.4-8.2) Albumin 2.4 GM/DL (3.4-5.0) 2.4 GM/DL (3.4-5.0) 2.2 GM/DL (3.4-5.0) Calcium Level 9.8 MG/DL (8.5-10.1) 9.7 MG/DL (8.5-10.1) 9.6 MG/DL (8.5-10.1) Alkaline Phosphatase 126 U/L (45-117) 125 U/L (45-117) 117 U/L (45-117) Aspartate Amino Transf (AST/SGOT) 187 U/L (15-37) 170 U/L (15-37) 167 U/L (15-37) Alanine Aminotransferase (ALT/SGPT) 93 U/L (12-78) 85 U/L (12-78) 79 U/L (12-78) Total Bilirubin 20.4 MG/DL (0.2-1.0) 21.2 MG/DL (0.2-1.0) 19.2 MG/DL (0.2-1.0) Sodium Level 152 MEQ/L (136-145) 151 MEQ/L (136-145) 149 MEQ/L (136-145) Potassium Level 3.6 MEQ/L (3.5-5.1) 3.6 MEQ/L (3.5-5.1) 3.7 MEQ/L (3.5-5.1) Chloride Level 116 MEQ/L (98-107) 115 MEQ/L (98-107) 114 MEQ/L (98-107) Carbon Dioxide Level 26.8 MEQ/L (21.0-32.0) 26.1 MEQ/L (21.0-32.0) 23.7 MEQ/L (21.0-32.0) Anion Gap 9 MEQ/L (5-15) 10 MEQ/L (5-15) 11 MEQ/L (5-15) Estimat Glomerular Filtration Rate 27 ML/MIN (>89) 25 ML/MIN (>89) 19 ML/MIN (>89) (Glo Morgan) Result Diagram: 01/20/18 05001/20/18499 Microbiology Last Impressions Chest X-Ray 01/16/18599 Signed Impressions: CONCLUSION: Support apparatus unchanged. Basilar airspace disease also stable since January 14. Abdomen X-Ray 01/03/18599 Signed Impressions: CONCLUSION: No dilated bowel. Liver Ultrasound 12/31/17 Signed Impressions: CONCLUSION: 1. Diffuse increased echogenicity throughout the liver suggestive of fatty inf iltration and/or hepatocellular disease. 2. Hepatomegaly. 3. Thickened gallbladder wall at 12 mm. No definite gallstones are seen. As ca n be seen with chronic gallbladder disease. Aorta CTA 12/28/17 Signed Impressions: Service Date/Time: Thursday, December 28, 2017 21:00 - CONCLUSION: 1. Normal thoracic and abdominal aorta. No dissection/aneurysm seen. 2. Bibasilar consolidation and patchy densities in the upper lobes. 3. Hepatic steatosis with possible cirrhosis and moderate abdominal ascites. 4. Cholelithiasis. Aldair Francis MD Abdomen/Pelvis CT 12/27/171921 Signed Impressions: Service Date/Time: Wednesday, December 27, 2017 21:00 - CONCLUSION: 1. Diffusely abnormal liver likely secondary to hepatic steatosis and possible changes of cirrhosis. 2. Splenomegaly. This could be secondary to portal hypertension. 3. Moderate ascites. 4. Calcified gallstone. Stefan Grier MD Gall Bladder Ultrasound 12/27/17 Signed Impressions: Service Date/Time: Wednesday, December 27, 2017 21:16 - CONCLUSION: 1. Diffusely abnormal liver secondary to cirrhosis and hepatic steatosis. 2. Gallbladder wall thickening. This is nonspecific. This can be seen with hepatic disease. It also can be seen with cholecystitis in the correct clinical situation. Gallstones were not demonstrated on the ultrasound examination but are clearly present on the CT examination. Stefan Grier MD Imaging Last Impressions Chest X-Ray 01/16/18599 Signed Impressions: CONCLUSION: Support apparatus unchanged. Basilar airspace disease also stable since January 14. Abdomen X-Ray 01/03/18599 Signed Impressions: CONCLUSION: No dilated bowel. Liver Ultrasound 12/31/17 Signed Impressions: CONCLUSION: 1. Diffuse increased echogenicity throughout the liver suggestive of fatty inf iltration and/or hepatocellular disease. 2. Hepatomegaly. 3. Thickened gallbladder wall at 12 mm. No definite gallstones are seen. As ca n be seen with chronic gallbladder disease. Aorta CTA 12/28/17 Signed Impressions: Service Date/Time: Thursday, December 28, 2017 21:00 - CONCLUSION: 1. Normal thoracic and abdominal aorta. No dissection/aneurysm seen. 2. Bibasilar consolidation and patchy densities in the upper lobes. 3. Hepatic steatosis with possible cirrhosis and moderate abdominal ascites. 4. Cholelithiasis. Aldair Francis MD Abdomen/Pelvis CT 12/27/171921 Signed Impressions: Service Date/Time: Wednesday, December 27, 2017 21:00 - CONCLUSION: 1. Diffusely abnormal liver likely secondary to hepatic steatosis and possible changes of cirrhosis. 2. Splenomegaly. This could be secondary to portal hypertension. 3. Moderate ascites. 4. Calcified gallstone. Stefan Grier MD Gall Bladder Ultrasound 12/27/17 Signed Impressions: Service Date/Time: Wednesday, December 27, 2017 21:16 - CONCLUSION: 1. Diffusely abnormal liver secondary to cirrhosis and hepatic steatosis. 2. Gallbladder wall thickening. This is nonspecific. This can be seen with hepatic disease. It also can be seen with cholecystitis in the correct clinical situation. Gallstones were not demonstrated on the ultrasound examination but are clearly present on the CT examination. Stefan Grier MD (Glo Morgan) Assessment and Plan Disease Oriented Problem List: (1) Probable sepsis (2) Abnormal INR (3) Alcoholic cirrhosis (4) Hyponatremia (5) Ascites (6) Acute renal failure (7) Upper GI bleed (8) Coagulopathy (9) Anemia requiring transfusions (10) Transaminitis (11) Hyperbilirubinemia Symptom Scale: (1) Pain 0-10 Scale: Unable to quantify (2) Dyspnea 0-10 Scale: Unable to quantify Pertinent Non-Medical Issues Psychosocial:Lives with his mother, Debo. Legally to estranged , Yuliya (lives in [place]). No children. Spiritual: Druze agustina. 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 Legal:Patient is not capacitated to make his own health care decisions, uncertain if he will regain capacity. Mr. Cedillo has never completed written advanced directives. According to [place] Statues, medical proxy decision maker would fall to patient's spouse, Stevenint resulted, Yuliya located Yuliya wishes to serve as legal proxy, though she does wish to involve pt Mother Debo in care/decisions, if Debo wishes to remain involved. Ethical issues impacting care: No known concerns at this time. . Important Contacts Debo Henderson, mother, PROXY as of 01/14/18 : [phone] (cell), ( home) No longer PROXY as 01/14/18 per pt request , Yuliya Henderson, : (cell) . Prognosis Mr. 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 Overall prognosis is poor. . Code Status: No Code Plan * Patient is not capacitated to make his own health care decisions, uncertain if he will regain capacity. Mr. Cedillo has never completed written advanced directives. According to [place] Statues, medical proxy decision maker would fall to patient's spouse, patient Yuliya Henderson endorses she does wish to serve as healthcare proxy for this patient. Yuliya does also wish to involve patient mother with decision-making however at this time patient mother has expressed that she does not wish to speak with Yuliya. 01/14/18 patient able to communicate some via nodding and gesturing; he indicates he does not wish for his Yuliya to continue to get updates or service decision-maker. He is not able to indicate who he would want to make decisions, by [place] statutes proxy decision making would then fall to his mother if he has been able to express he does not want to be his estranged legal . * CODE STATUS : DNR * GOALS: Palliative and critical care has had multiple lengthy meetings with patient mother and proxy. She understands patient has very poor chances for survival due to multiorgan failure. She however has made no further decisions regarding possibility of de-escalation of treatment. She wishes to continue available treatments at this time she continues to hope and pray for a miracle. * SYMPTOMS; pain: Some abdominal tenderness. Likely related to disease process. He has previously nodded yes to pain though unable to further qualify or quantify due to intubation and limited communication. No apparent pain today to exam. Dyspnea: on mech vent, had been tolerating CPAP though with episodes of tachypnea vent asynchrony this week. felt would likely require reintubation if extubated due to multiple organ dysfunction, body habitus. No new medication recommendations at this time. * Palliative care will continue to follow throughout hospitalization to assist with clarification of medical treatment goals and symptom management as needed. . (Glo Morgan) Time Spent Total Floor Time (mins): 30 (Chart review, PE, discussion with proxy, discussion with critical care and nursing) (Glo Morgan) Attestation To help prompt me to consider important information that might be impacting today's encounter and assessment, information from prior notes written by myself or my colleagues may have been "brought forward" into today's note. My signature on this note, however, is an attestation that I personally performed the exam, history, and/or decision-making noted today, and, unless otherwise indicated, the interactions with patient, family, and staff as well as the review of records all occurred today. I also attest that the listed assessment and stated plan reflect my best clinical judgment today based on the combination of historical information, prior notes, and today's exam/ interactions. When time spent is documented, it refers only to time spent today by the signer, or if indicated, combined time spent today by collaborating physician/nurse practitioner. (Glo Morgan) Glo Morgan Jan 20, 2018 14:50 Paula Shultz Jan 20, 2018 14:56
--- NOTE | 2018-01-20 15:06 | HHI.NPPN ---
Subjective History of Present Illness 52-year-old male, Alcoholic hepatitis/cirrhosis received contrast study and acute renal failure Objective Data Data Vital Signs Date Time Temp Pulse Resp B/P (MAP) Pulse Ox O2 Delivery O2 Flow Rate FiO2 01/20/18 12:04 100 35 01/20/18 09:46 35 01/20/18 08:00 86 01/20/18 08:00 98.4 86 23 119/58 (78) 100 01/20/18 08:00 35 01/20/18 07:17 100 35 01/20/18 07:00 100 Mechanical Ventilator 35 01/20/18 06:00 82 01/20/18 04:00 84 01/20/18 04:00 35 01/20/18 04:00 99.3 84 21 126/60 (82) 96 01/20/18 03:37 95 35 01/20/18 02:00 84 01/20/18 00:00 78 01/20/18 00:00 99.1 78 22 123/56 (78) 98 01/20/18 00:00 35 01/19/18 23:48 98 35 01/19/18 22:00 80 01/19/18 20:00 99.7 84 22 128/66 (86) 100 01/19/18 20:00 35 01/19/18 20:00 84 01/19/18 19:54 100 35 01/19/18 19:00 98 Mechanical Ventilator 35 01/19/18 18:00 84 01/19/18 16:00 99.6 90 22 136/68 (90) 98 01/19/18 16:00 90 01/19/18 16:00 35 01/19/18 15:32 100 35 -: 01/20/18 0500 01/20/18 0500 Physical Exam General Appearance: Well Developed, Well Nourished Eyes Eye Exam: Jaundice Neck Neck Exam: Neck Supple Pulmonary Resp Exam: Clear Bilaterally, Diminished Breath Sounds Cardiology CV Exam: Regular, Normal Sinus Rhythm Gastrointestinal/Abdomen GI Exam: Soft, Distended Extremeties Extremities Exam: Moderate Edema Assessment/Plan Problem List: (1) Acute renal failure ICD Codes: N17.9 - Acute kidney failure, unspecified Plan: Patient has liver cirrhosis and possible hepatorenal syndrome is considered, unlikely as he is non oliguric. Some improvement in renal function. CR 3.5 UOP 1.7 L Hypernatremia is noted. Lasix 40 mg IV BID on hold getting free water hypotonic solution Na 149 cr 3.5 very tense Ascites worsening renal failure mother talking to [facility] LFT (2) Upper GI bleed ICD Codes: K92.2 - Gastrointestinal hemorrhage, unspecified Plan: GI is following (3) Alcoholic cirrhosis ICD Codes: K70.30 - Alcoholic cirrhosis of liver without ascites Plan: Followed by GI (4) Coagulopathy ICD Codes: D68.9 - Coagulation defect, unspecified Plan: Patient has received blood product, FFP and PRBCs (5) Ascites ICD Codes: R18.8 - Other ascites Plan: Due to alcoholic cirrhosis Problem Qualifiers (1) Acute renal failure: Qualified Codes: N17.9 - Acute kidney failure, unspecified (2) Alcoholic cirrhosis: Qualified Codes: K70.31 - Alcoholic cirrhosis of liver with ascites (3) Ascites: Qualified Codes: K70.31 - Alcoholic cirrhosis of liver with ascites Ciro Elder MD Jan 20, 2018 15:06
--- NOTE | 2018-01-20 15:14 | RADRPT ---
EXAM DATE: 01/20/2018 2:49 PM EDT AGE/SEX: 52 years / Male INDICATIONS: OG tube placement. CLINICAL DATA: This is the patient's initial encounter. Patient reports that signs and symptoms have been present for 1 day and indicates a pain score of Nonresponsive. MEDICAL/SURGICAL HISTORY: . Hypertension. Gastroesophageal reflux disease. Cirrhosis. . Umb ilical hernia repair. COMPARISON: Previous examination dated 01/20/2018.. FINDINGS: The examination demonstrates a oral gastric tube present. The tip of the tube is within the stomach. The bowel gas pattern is unremarkable. The osseous structures are intact. CONCLUSION: The tip of the orogastric tube is within the stomach. Electronically signed by: Sathya Stock MD 01/20/2018 3:13 PM EDT
--- NOTE | 2018-01-20 15:43 | HHI.CCPN ---
Subjective Remarks/Hospital Course Patient is a 52-year-old male with history of alcohol dependence, on chronic Coumadin for "abdominal vein thrombosis", history of hypertension who presented to the emergency department with complaints of increasing jaundice, increasing abdominal girth and vomiting jade blood multiple times over the last 2 days. Patient admits to being a heavy drinker he drinks about 1.75 L bottle hard liquor every 2 days. ER workup showed patient had a hemoglobin of 8.1, INR was 15.7. PTT 156.1, white count of 13.6 with 10% bands. Also sodium was noted to be 119, AST 439 ALT 115 and bilirubin of 7.6. A stat CT abdomen pelvis showed moderate ascites, probable cirrhosis and hepatic steatosis, splenomegaly, and gallstones. Patient had been ordered to receive 2 units of PRBC, and total 4 units of FFP. INR, Hb will be rechecked after this and additional FFP will be given accordingly. 10 mg vitamin K also ordered. Unfortunately hospital is out of [facility]. I evaluated the patient in the emergency department. He initially had an alcohol level of 135. At the time of my exam he is in moderate distress appears to be slightly tremulous. I have initiated CIWA protocol. I will also start its Rocephin for SBP prophylaxis. Patient had been started on IV Protonix infusion and octreotide which will be continued. Patient clinically also appears to have at least moderate ascites but I am unable to perform paracentesis due to elevated INR. 12/28: Currently resting in bed complaining of abdominal pain. Short of breath and tachypnea. Complaining of nausea currently. Remains on nasal cannula. Patient does not desire his mother's to have knowledge about his alcohol use. 12/29: Afebrile. Remains intubated post EGD yesterday due to worsening hypoxia. Currently on PSV trial 26/05 at 40%. Remains on dexmedetomidine drip and attempt to wean with alcohol use and likely progression to DTs. Banding of varices noted. Pentoxifylline 400 mg every 8 hours initiated with appropriate 12/30: Awake on dexmedetomidine drip at 1 mcg/kg/min. Following commands and attempting to write. Nods his head when states he feels the effects of alcohol withdrawals. Afebrile. Continues to leak from prior site of paracentesis. 12/31: Diminished urine output noted overnight. Increasing FiO2 requirement. Bladder pressures measured currently elevated around 25. Will place tube to suction and notify GI. Nephrology consult placed. Will need central line. 01/01: T-max 100. Currently 99. Meld score 34. Discriminant function is 34. Tamera alcohol scale score 7. Arousable the ventilator. FiO2 increased to 40- 60% overnight. 350 cc from NG tube overnight. 01/02: T-max 99.8. No bowel movement overnight. Abdomen remains distended. More ascites output from left lower quadrant previous paracentesis site. Arousable on the ventilator and follows commands on sedation vacation. Remains on PEEP of 12. FiO2 60%. 01/03: Patient remains intubated sedated very critical. FiO2 had to be increased to 70%. I have increase PEEP from 12-14. Chest x-ray remains unchanged. T-max 100.5. Urine output 1.3 L. BUN 42 creatinine 3.5 hemoglobin 7.4. Bedside ultrasound shows at least moderate ascites. Plan for thoracentesis for fluid removal and also will help with vent dynamic. 01/04: Persistent problems with oxygenation related to diffuse basilar atelectasis. Patient converted to airway pressure release ventilation this morning. Caloric intake probably on the high side in view of propofol infusion. Will reduce TPN to 60 cc/h. Enteral feedings at trickle rate. 01/05: Patient placed on APRV mode 01/04 with T-hi 5 sec Pres hi 30, with release volumes around 800 cc. Good oxygen saturation 30% FiO2. X-ray shows improvement in bilateral consolidation persistent left lower lobe infiltrate. Urine output 1.5 L also 1.5 L out from left paracentesis site. Transfuse 1 U PRBC 01/06: Remains critically ill but making some progress. Reduce PHigh to 26, T high to 4.5, if tolerated well, attempt to switch to PC/AC with PEEP 18-20 and rita iTime. Urine output adequate 2.3 L in 24 hours. Paracentesis site draining approximately 1.4 L despite paracentesis and removal of 3.5 L yesterday. Increase Lasix to 60 mg IV q6hr, Creat improved to 3.29 01/07: Oxygenation modestly improved with very aggressive mean airway pressures , continue PEEP 1820. Abdominal girth and ascites have conspired to reduce functional residual capacity. Now a permanent peritoneal drain is in place and we will attempt to make some progress with gas exchange. Between the intractable ascites, morbid obesity, and respiratory failure it will be very difficult to remove this patient from positive pressure ventilation. 01/08: ET tube has migrated above the vocal cords. Directly visualized with glide scope after receiving 40 mg etomidate. Cuff was deflated several times and advanced with adequate tidal volumes post advancement. Follow-up chest x- ray revealed adequate placement of ET tube. Remains on furosemide will change to drip today. 01/09: Afebrile. FiO2 down to 65%. Continues with profuse drainage from pigtail site. Not tolerating tube feeds. Hemoglobin 6.4 units PRBCs. Will transfuse 1 unit today. 01/10: FiO2 down to 40%. PEEP decreased to 12. Arousable on propofol and fentanyl drips and able to follow commands. Transfuse 1 additional unit PRBCs overnight hemoglobin currently 8.4. 01/11: T-max 99. PEEP decreased to 10. Continue to be aroused on propofol and fentanyl drips and follows commands. Hemoglobin stable 01/12: PEEP decreased from 10 - 8. Remains arousable on propofol and fentanyl drips and follows commands. Hemoglobin stable. A.m. labs from [facility] currently pending. 01/13: Afebrile. Currently awake and alert on the ventilator. Attempting CPAP trial 05/16 at 35%. No new issues overnight. 01/14: no improvements. awake on the ventilator. CAM-. capacitated. very weak. wbc continues to rise. MELD 29. overall very poor prognosis. had a discussion with the patient. he is too weak to write things down, but he can nod yes or no and give thumbs up/down. passed complete CAM-ICU assessment and not delirious. RASS 0 and oriented to person and place. difficult to assess time orientation. I explained his hospital course, along with all of the organ systems that were failing, and he nodded to express understanding. I told him that his ex- was legally still to him and legally his medical decision maker and she had been making healthcare decisions for him, and he expressed quite clearly that he did not want her to make decisions on his behalf. Palliative care was at bedside and confirmed this assessment. It is my assessment that the patient has full capacity to make decisions and to designate or un-designate healthcare surrogates. 01/15: T-max 99.9/also Tcurrent. Tolerated CPAP trial 12 hours yesterday however failed weaning parameters with high RSBI. Tube feeds have not been initiated. Positive BM 1. Continues with very slow drainage from prior pigtail catheter placed for abdominal ascites. Currently denying pain 01/16: back down to admission weight. all labs continue to worsen. MELD 31. remains febrile with elevated wbc. cultures NGTD. 01/17: no meaningful improvements. sodium rising. renal function essentially unchanged. LFTs still very elevated. cultures ngtd. wbc remains high despite empiric abx therapy. still febrile. 01/18: no changes. Cr 2.5 from 2.6. TBili remains over 20. febrile and wbc up to 20k despite addition of fungal coverage. no culture has grown anything. overall , very poor prognosis. mother continues to press on for aggressive care. 01/19: no improvements. Cr up to 2.7. TBili 21. still spiking fevers. mother continues to press for aggressive care, although we do not have much more to offer. Subjective 01/20: Creatinine up to 3.5. Total bilirubin around 20. Intermittent afebrile. Not a candidate for extubation. Currently on propofol at 30 mg/kg/min. Objective Vital Signs Date Time Temp Pulse Resp B/P (MAP) Pulse Ox O2 Delivery O2 Flow Rate FiO2 01/20/18 12:04 100 35 01/20/18 08:00 86 01/20/18 08:00 98.4 23 119/58 (78) 01/20/18 07:00 Mechanical Ventilator Intake and Output 01/20/18 01/20/18 01/20/18 07:59 15:59 23:59 Intake Total 250 ml Output Total 500 ml Balance -250 ml Result Diagram: 01/20/18 0500 01/20/18 0500 Other Results Microbiology Date/Time Source Procedure Growth Status 01/13/18 15:43 Blood Other Aerobic Blood Culture - Final NO GROWTH IN 5 DAYS Complete 01/13/18 15:43 Blood Other Anaerobic Blood Culture - Final NO GROWTH IN 5 DAYS Complete 01/14/18 18:10 Fluid Peritoneal Fluid Gram Stain - Final Resulted 01/14/18 18:10 Fluid Peritoneal Fluid Body Fluid Culture - Preliminary NO GROWTH IN 48 HOURS. Resulted 01/13/18 09:58 Sputum Endotracheal Gram Stain - Final Complete 01/13/18 09:58 Sputum Endotracheal Sputum Culture - Final HEAVY GROWTH NORMAL RESPIRATORY AISHWARYA Complete 12/30/17 08:45 Urine Catheterized Urine Urine Culture - Final NO GROWTH IN 48 HOURS. Complete Imaging Last Impressions Abdomen X-Ray 01/20/18 0000 Signed Impressions: CONCLUSION: The tip of the orogastric tube is within the stomach. Chest X-Ray 01/16/18 0600 Signed Impressions: CONCLUSION: Support apparatus unchanged. Basilar airspace disease also stable since January 14. Liver Ultrasound 12/31/17 Signed Impressions: CONCLUSION: 1. Diffuse increased echogenicity throughout the liver suggestive of fatty inf iltration and/or hepatocellular disease. 2. Hepatomegaly. 3. Thickened gallbladder wall at 12 mm. No definite gallstones are seen. As ca n be seen with chronic gallbladder disease. Aorta CTA 12/28/17 Signed Impressions: Service Date/Time: Thursday, December 28, 2017 21:00 - CONCLUSION: 1. Normal thoracic and abdominal aorta. No dissection/aneurysm seen. 2. Bibasilar consolidation and patchy densities in the upper lobes. 3. Hepatic steatosis with possible cirrhosis and moderate abdominal ascites. 4. Cholelithiasis. Aldair Francis MD Abdomen/Pelvis CT 12/27/[id number] Signed Impressions: Service Date/Time: Wednesday, December 27, 2017 21:00 - CONCLUSION: 1. Diffusely abnormal liver likely secondary to hepatic steatosis and possible changes of cirrhosis. 2. Splenomegaly. This could be secondary to portal hypertension. 3. Moderate ascites. 4. Calcified gallstone. Stefan Grier MD Gall Bladder Ultrasound 12/27/17 Signed Impressions: Service Date/Time: Wednesday, December 27, 2017 21:16 - CONCLUSION: 1. Diffusely abnormal liver secondary to cirrhosis and hepatic steatosis. 2. Gallbladder wall thickening. This is nonspecific. This can be seen with hepatic disease. It also can be seen with cholecystitis in the correct clinical situation. Gallstones were not demonstrated on the ultrasound examination but are clearly present on the CT examination. Stefan Grier MD Procedures Paracentesis EGD Objective Remarks GENERAL: 52-year-old male lying in bed orotracheally intubated SKIN: Warm and dry. Jaundiced HEAD: Atraumatic. Normocephalic. EYES: Pupils equal and round about 3 millimeters, positive for conjunctival icterus. ENT: No nasal bleeding or discharge. Mucous membranes dry and pink. Orotracheally intubated NECK: Trachea midline. Cannot appreciate JVD due to body habitus. right IJ is clean dry and intact CARDIOVASCULAR: Regular rate and rhythm. Without murmur RESPIRATORY:Breath sounds equal bilaterally, but reduced anteriorly and in bases. GASTROINTESTINAL: Abdomen distended abdomen nontender obese. There is drainage from bilateral flanks, previous paracentesis sites. MUSCULOSKELETAL: Extremities -bilateral lower extreme 1+ pitting edema NEUROLOGICAL: Awake on the ventilator and moving all 4 extremities spontaneously. Follows simple commands such as thumbs up with bilateral hands. No obvious cranial nerve deficits. Motor grossly within normal limits. Urinary Catheter: No Assessment to: Continue Vascular Central Line Catheter: Yes Assessment to: Continue Date of Insertion: Jan 13, 2018 Line: Central Venous Catheter Side: Right Location: Internal, Jugular A/P Assessment and Plan NEURO/PSYCH: Alcohol withdrawal Alcohol dependence On propofol for sedation while intubated currently at 30 mcg/kg/min with as needed oxycodone 20 mg by tube every 4 hours as needed pain 1 through 5 Dexmedetomidine drip for vent weaning ordered Currently receiving thiamine 100 mg IV daily. Receiving multivitamin and folate and TPN RESP: Acute hypoxemic respiratory failure Likely OHS, STAS PRVC 18/550/1.08/16/34 Ventilator bundle. Albuterol/ipratropium aerosols every 4 hours, albuterol aerosols every 2 hours as needed dyspnea Chest x-ray in 01/14-stable pulmonary edema/possible left lower lobe effusion. continue to hold furosemide 40 mg IV twice daily with acute kidney injury CXR 01/18: unchanged. Recheck in a.m. 01/21 still failing SBT. still weak, volume overloaded. CV: History of hypertension -Holding amlodipine 5 mg due to GI bleed and Spironolactone 50 mg p.o. daily -Systolic hypertension. As needed labetalol, Nitropaste and nicardipine drip to maintain systolic blood pressure less than 170 -continue to hold furosemide 40 mg IV twice daily GI: Upper GI bleed secondary to esophageal varices Ascites/abdominal Liver cirrhosis/hepatic steatosis Cholelithiasis Elevated lipase Elevated ammonia Hypoalbuminemia/moderate protein calorie malnutrition EGD 12/28 revealed -esophageal varices/nipple midesophagus with 3 bands noted. Portal gastropathy. Hiatal hernia. Repeat EGD per GI Dobbhoff tube now on trickle feeds with Nepro goal 50 cc an hour: increase TF to goal.. TPN at 42 mL: would ideally like to d/c TPN when at goal. Pentoxifylline 400 mg every 8 hours: hold this as it is unable to be crushed and placed in feeding tube. IV BID PPI. Status post paracentesis 12/28-3 L. repeat paracentesis with 3.5L removed CT abdomen/pelvis revealed no sequelae of pancreatitis. CT aorta revealed no signs of dissection or leakage. Lactulose 30 every 12 hours for elevated ammonia/BM Continue metoclopramide 5 every 8. MELD score in a.m. 01/09 - . Similar findings since,although continues to worsen. MELD 01/16 - . MELD 01/19 - . FEN//Endo: Hypernatremia -Monitor renal function closely. Sliding scale insulin Accu-Cheks with NovoLog/low regimen every 4 hours to maintain euglycemia 10 units insulin in TPN continue free water 300 cc every 4 hours add 1/4 NS @ 100 cc/hr 2 L have adjusted NaAcet, KAcet, KCl to minimize sodium in TPN ID: Probable sepsis Noted staph epi blood culture 12/31+ probable contamination Possible SBP -Klebsiella oxycota 01/07 continue zosyn (renally dosed) s/p linezolid continue diflucan empirically given he has been on TPN and fungemia may be a risk. persistent fevers and leukocytosis despite maximal therapy is concerning. Repeat sputum cx 01/05 no growth wbc continues to rise, as well as LFTs. peritoneal fluid: NGTD. Pertinent cultures 01/07 -peritoneal fluid -Klebsiella oxycota 12/31 -blood cultures 1 out of 4 staph epi. 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 Hb 8 INR 1.4 today. s/p 1 unit of PRBC 2017 and transfuse 3 units PRBCs 01/08. 2 unit PRBCs 01/09 -Serially monitor INR, phytonadione 5 mg given 12/31 and daily days has been completed -Hemoglobin level appear to have stabilized Follow-up CBC in a.m. 01/21 RENAL: Acute kidney injury- persistent, worsening. Possible hepatorenal syndrome Possible contrast nephropathy, vs HRS. Urine sodium 11. Urine creatinine elevated. Negative urine eosinophils. No hydronephrosis on CAT scan. Nephrology Dr. Elder. No hydronephrosis PROPH: -Bilateral lower extremity SCDs. IV pantoprazole twice daily. Chemical DVT prophylaxis is contraindicated at this time LINES: -left IJ CVL placed 12/31, d/c 01/13 - right IJ CVL placed 01/13 to current Level 3 follow-up Constantine Alvarado MD Jan 20, 2018 15:43
[2018-01-20] MEDS: SODIUM CHLORIDE 23.4% INJ 38.5 MEQ in WATER STERILE FOR INJ 1,000 ML IV SCH ×2 (15:45→20:50)
[2018-01-20] MEDS: POTASSIUM CHLORIDE IV-CENTRAL SCH ×8 (20:00)
[2018-01-20] MEDS: MAGNESIUM CHLORIDE IV-CENTRAL SCH ×8 (20:00)
[2018-01-20] MEDS: [UNRECOGNIZED DRUG - OTHER] IV-CENTRAL SCH ×8 (20:00)
[2018-01-21] VITALS (19 sets, daily range): BP systolic 137–154; BP diastolic 62–74; PULSE 88–96; RESP 24–31; TEMP 99.3–100.4; O2SAT 93–96
[2018-01-21] MEDS: RESP: ALBUTEROL 2.5 MG/IPRATROPIUM 0.5 MG NEB (SCH) NEB ×7 (00:45→23:15)
[2018-01-21] MEDS: PIPERACIL-TAZO 2.25 GM PREMIX 50 ML IV SCH (02:12)
[2018-01-21] MEDS: CHLORHEXIDINE GLUCONATE 2 % 1 PACK (2 CLOTHS) TOP SCH ×2 (03:09→21:56)
[2018-01-21] MEDS: PROPOFOL 1000 MG/100 ML INJ 100 ML IV PRN ×7 (03:40→22:38)
--- NOTE | 2018-01-21 03:58 | RADRPT ---
EXAM DATE: 01/21/2018 3:33 AM EDT AGE/SEX: 52 years / Male INDICATIONS: Respiratory failure CLINICAL DATA: This is the patient's sequela encounter. Patient reports that signs and symptoms have been present for 2 weeks and indicates a pain score of Nonresponsive. MEDICAL/SURGICAL HISTORY: . Hypertension. Gastroesophageal reflux disease. Cirrhosis. . Umbil ical hernia repair. [place] [facility] [place]. . FINDINGS: Single AP view the chest. Endotracheal tube remains in place. Nasogastric tube is now seen and course s below the [id number] of the radiograph. Right IJ central venous catheter unchanged. Lung volumes are low. Mild bilateral pulmonary opacity grossly unchanged. No evidence of pleural effusion or pneu mothorax. CONCLUSION: 1. Nasogastric tube is now seen with tip below the [id number] of the radiograph. 2. Low lung volumes with mild bilateral pulmonary opacity unchanged. Electronically signed by: Robby Zhang MD 01/21/2018 3:57 AM EDT
[2018-01-21] MEDS: INSULIN NovoLIN REGULAR SUPPLEMENTAL SCALE SQ SCH ×5 (04:00→19:43)
[2018-01-21] MEDS: FREE WATER G-TUBE SCH ×4 (04:15→15:50)
[2018-01-21] MEDS: ARTIFICIAL TEARS OPTH SOLN 15 ML BTL EACH EYE SCH ×3 (05:53→22:07)
[2018-01-21] MEDS: METOCLOPRAMIDE HCL 10 MG/2 ML VIAL IV PUSH SCH ×3 (05:53→22:07)
[2018-01-21 06:48] LABS: HEMATOCRIT 28.5 % (39.0-51.0); HEMOGLOBIN 9.2 GM/DL (13.0-17.0); INTERNATIONAL NORMALIZED RATIO 1.4 RATIO; MEAN CELL VOLUME 94.4 FL (80.0-100.0); MEAN CORPUSCULAR HEMOGLOBIN 30.4 PG (27.0-34.0); MEAN CORPUSCULAR HGB CONC 32.2 % (32.0-36.0); MEAN PLATELET VOLUME 9.8 FL (7.0-11.0); PLATELET COUNT 349 TH/MM3 (150-450); PROTHROMBIN TIME - PATIENT 13.9 SEC (9.8-11.6); RED BLOOD COUNT 3.02 MIL/MM3 (4.50-5.90); RED CELL DISTRIBUTION WIDTH 26.9 % (11.6-17.2); WHITE BLOOD COUNT 19.7 TH/MM3 (4.0-11.0)
[2018-01-21 06:57] LABS: ALBUMIN 2.2 GM/DL (3.4-5.0); ALT (GPT) 87 U/L (12-78); AST (GOT) 188 U/L (15-37); BICARBONATE 18.6 MEQ/L (21.0-32.0); BLOOD UREA NITROGEN 88 MG/DL (7-18); CALCIUM 9.8 MG/DL (8.5-10.1); CHLORIDE 109 MEQ/L (98-107); GLOMERULAR FILTRATION RATE 15 ML/MIN (>89); GLUCOSE,RANDOM 152 MG/DL (74-106); PHOSPHORUS 5.1 MG/DL (2.5-4.9); SODIUM (NA) 142 MEQ/L (136-145)
[2018-01-21 06:58] LABS: CREATININE 4.25 MG/DL (0.60-1.30)
[2018-01-21 06:59] LABS: ALKALINE PHOSPHATASE 138 U/L (45-117); TOTAL BILIRUBIN ADULT 19.6 MG/DL (0.2-1.0); TOTAL PROTEIN 6.9 GM/DL (6.4-8.2)
--- NOTE | 2018-01-21 07:11 | HHI.CCPN ---
Subjective Remarks/Hospital Course Patient is a 52-year-old male with history of alcohol dependence, on chronic Coumadin for "abdominal vein thrombosis", history of hypertension who presented to the emergency department with complaints of increasing jaundice, increasing abdominal girth and vomiting jade blood multiple times over the last 2 days. Patient admits to being a heavy drinker he drinks about 1.75 L bottle hard liquor every 2 days. ER workup showed patient had a hemoglobin of 8.1, INR was 15.7. PTT 156.1, white count of 13.6 with 10% bands. Also sodium was noted to be 119, AST 439 ALT 115 and bilirubin of 7.6. A stat CT abdomen pelvis showed moderate ascites, probable cirrhosis and hepatic steatosis, splenomegaly, and gallstones. Patient had been ordered to receive 2 units of PRBC, and total 4 units of FFP. INR, Hb will be rechecked after this and additional FFP will be given accordingly. 10 mg vitamin K also ordered. Unfortunately hospital is out of [facility]. I evaluated the patient in the emergency department. He initially had an alcohol level of 135. At the time of my exam he is in moderate distress appears to be slightly tremulous. I have initiated CIWA protocol. I will also start its Rocephin for SBP prophylaxis. Patient had been started on IV Protonix infusion and octreotide which will be continued. Patient clinically also appears to have at least moderate ascites but I am unable to perform paracentesis due to elevated INR. 12/28: Currently resting in bed complaining of abdominal pain. Short of breath and tachypnea. Complaining of nausea currently. Remains on nasal cannula. Patient does not desire his mother's to have knowledge about his alcohol use. 12/29: Afebrile. Remains intubated post EGD yesterday due to worsening hypoxia. Currently on PSV trial 26/05 at 40%. Remains on dexmedetomidine drip and attempt to wean with alcohol use and likely progression to DTs. Banding of varices noted. Pentoxifylline 400 mg every 8 hours initiated with appropriate 12/30: Awake on dexmedetomidine drip at 1 mcg/kg/min. Following commands and attempting to write. Nods his head when states he feels the effects of alcohol withdrawals. Afebrile. Continues to leak from prior site of paracentesis. 12/31: Diminished urine output noted overnight. Increasing FiO2 requirement. Bladder pressures measured currently elevated around 25. Will place tube to suction and notify GI. Nephrology consult placed. Will need central line. 01/01: T-max 100. Currently 99. Meld score 34. Discriminant function is 34. Tamera alcohol scale score 7. Arousable the ventilator. FiO2 increased to 40- 60% overnight. 350 cc from NG tube overnight. 01/02: T-max 99.8. No bowel movement overnight. Abdomen remains distended. More ascites output from left lower quadrant previous paracentesis site. Arousable on the ventilator and follows commands on sedation vacation. Remains on PEEP of 12. FiO2 60%. 01/03: Patient remains intubated sedated very critical. FiO2 had to be increased to 70%. I have increase PEEP from 12-14. Chest x-ray remains unchanged. T-max 100.5. Urine output 1.3 L. BUN 42 creatinine 3.5 hemoglobin 7.4. Bedside ultrasound shows at least moderate ascites. Plan for thoracentesis for fluid removal and also will help with vent dynamic. 01/04: Persistent problems with oxygenation related to diffuse basilar atelectasis. Patient converted to airway pressure release ventilation this morning. Caloric intake probably on the high side in view of propofol infusion. Will reduce TPN to 60 cc/h. Enteral feedings at trickle rate. 01/05: Patient placed on APRV mode 01/04 with T-hi 5 sec Pres hi 30, with release volumes around 800 cc. Good oxygen saturation 30% FiO2. X-ray shows improvement in bilateral consolidation persistent left lower lobe infiltrate. Urine output 1.5 L also 1.5 L out from left paracentesis site. Transfuse 1 U PRBC 01/06: Remains critically ill but making some progress. Reduce PHigh to 26, T high to 4.5, if tolerated well, attempt to switch to PC/AC with PEEP 18-20 and rita iTime. Urine output adequate 2.3 L in 24 hours. Paracentesis site draining approximately 1.4 L despite paracentesis and removal of 3.5 L yesterday. Increase Lasix to 60 mg IV q6hr, Creat improved to 3.29 01/07: Oxygenation modestly improved with very aggressive mean airway pressures , continue PEEP 1820. Abdominal girth and ascites have conspired to reduce functional residual capacity. Now a permanent peritoneal drain is in place and we will attempt to make some progress with gas exchange. Between the intractable ascites, morbid obesity, and respiratory failure it will be very difficult to remove this patient from positive pressure ventilation. 01/08: ET tube has migrated above the vocal cords. Directly visualized with glide scope after receiving 40 mg etomidate. Cuff was deflated several times and advanced with adequate tidal volumes post advancement. Follow-up chest x- ray revealed adequate placement of ET tube. Remains on furosemide will change to drip today. 01/09: Afebrile. FiO2 down to 65%. Continues with profuse drainage from pigtail site. Not tolerating tube feeds. Hemoglobin 6.4 units PRBCs. Will transfuse 1 unit today. 01/10: FiO2 down to 40%. PEEP decreased to 12. Arousable on propofol and fentanyl drips and able to follow commands. Transfuse 1 additional unit PRBCs overnight hemoglobin currently 8.4. 01/11: T-max 99. PEEP decreased to 10. Continue to be aroused on propofol and fentanyl drips and follows commands. Hemoglobin stable 01/12: PEEP decreased from 10 - 8. Remains arousable on propofol and fentanyl drips and follows commands. Hemoglobin stable. A.m. labs from [facility] currently pending. 01/13: Afebrile. Currently awake and alert on the ventilator. Attempting CPAP trial 05/16 at 35%. No new issues overnight. 01/14: no improvements. awake on the ventilator. CAM-. capacitated. very weak. wbc continues to rise. MELD 29. overall very poor prognosis. had a discussion with the patient. he is too weak to write things down, but he can nod yes or no and give thumbs up/down. passed complete CAM-ICU assessment and not delirious. RASS 0 and oriented to person and place. difficult to assess time orientation. I explained his hospital course, along with all of the organ systems that were failing, and he nodded to express understanding. I told him that his ex- was legally still to him and legally his medical decision maker and she had been making healthcare decisions for him, and he expressed quite clearly that he did not want her to make decisions on his behalf. Palliative care was at bedside and confirmed this assessment. It is my assessment that the patient has full capacity to make decisions and to designate or un-designate healthcare surrogates. 01/15: T-max 99.9/also Tcurrent. Tolerated CPAP trial 12 hours yesterday however failed weaning parameters with high RSBI. Tube feeds have not been initiated. Positive BM 1. Continues with very slow drainage from prior pigtail catheter placed for abdominal ascites. Currently denying pain 01/16: back down to admission weight. all labs continue to worsen. MELD 31. remains febrile with elevated wbc. cultures NGTD. 01/17: no meaningful improvements. sodium rising. renal function essentially unchanged. LFTs still very elevated. cultures ngtd. wbc remains high despite empiric abx therapy. still febrile. 01/18: no changes. Cr 2.5 from 2.6. TBili remains over 20. febrile and wbc up to 20k despite addition of fungal coverage. no culture has grown anything. overall , very poor prognosis. mother continues to press on for aggressive care. 01/19: no improvements. Cr up to 2.7. TBili 21. still spiking fevers. mother continues to press for aggressive care, although we do not have much more to offer. Subjective 01/20: Creatinine up to 3.5. Total bilirubin around 20. Intermittent afebrile. Not a candidate for extubation. Currently on propofol at 30 mg/kg/min. 01/21: 650 mls urine overnight but renal failure persists. Volume is not the problem. Tolerating enteral feeds, taper TPN. Update 1600 hours. Patient's mother who is now his power of field kiln burner for healthcare has decided to withdraw artificial support. She expresses a full understanding that this is not a survivable disease process. She wants to be assured that he will not experience discomfort when we extubate. She is adamant that he receive sedation and analgesia because he appears to struggle on the ventilator and will struggle more when extubated. Objective Vital Signs Date Time Temp Pulse Resp B/P (MAP) Pulse Ox O2 Delivery O2 Flow Rate FiO2 01/21/18 06:00 90 01/21/18 04:26 96 35 01/21/18 04:00 100.4 24 137/65 (89) 01/20/18 19:00 Mechanical Ventilator Intake and Output 01/21/18 01/21/18 01/22/18 08:00 16:00 00:00 Intake Total 1415 ml Output Total 750 ml Balance 665 ml Result Diagram: 01/21/18 0545 01/21/18 0545 Imaging Last Impressions Abdomen X-Ray 01/20/18 0000 Signed Impressions: CONCLUSION: The tip of the orogastric tube is within the stomach. Chest X-Ray 01/16/18 0600 Signed Impressions: CONCLUSION: Support apparatus unchanged. Basilar airspace disease also stable since January 14. Liver Ultrasound 12/31/17 Signed Impressions: CONCLUSION: 1. Diffuse increased echogenicity throughout the liver suggestive of fatty inf iltration and/or hepatocellular disease. 2. Hepatomegaly. 3. Thickened gallbladder wall at 12 mm. No definite gallstones are seen. As ca n be seen with chronic gallbladder disease. Aorta CTA 12/28/17 Signed Impressions: Service Date/Time: Thursday, December 28, 2017 21:00 - CONCLUSION: 1. Normal thoracic and abdominal aorta. No dissection/aneurysm seen. 2. Bibasilar consolidation and patchy densities in the upper lobes. 3. Hepatic steatosis with possible cirrhosis and moderate abdominal ascites. 4. Cholelithiasis. Aldair Francis MD Abdomen/Pelvis CT 12/27/[id number] Signed Impressions: Service Date/Time: Wednesday, December 27, 2017 21:00 - CONCLUSION: 1. Diffusely abnormal liver likely secondary to hepatic steatosis and possible changes of cirrhosis. 2. Splenomegaly. This could be secondary to portal hypertension. 3. Moderate ascites. 4. Calcified gallstone. Stefan Grier MD Gall Bladder Ultrasound 12/27/17 Signed Impressions: Service Date/Time: Wednesday, December 27, 2017 21:16 - CONCLUSION: 1. Diffusely abnormal liver secondary to cirrhosis and hepatic steatosis. 2. Gallbladder wall thickening. This is nonspecific. This can be seen with hepatic disease. It also can be seen with cholecystitis in the correct clinical situation. Gallstones were not demonstrated on the ultrasound examination but are clearly present on the CT examination. Stefan Grier MD Procedures Paracentesis EGD Objective Remarks GENERAL: 52-year-old male lying in bed. SKIN: Warm and dry. Jaundiced HEAD: Atraumatic. Normocephalic. EYES: Pupils equal and round 3 millimeters, positive for conjunctival icterus. ENT: No nasal bleeding or discharge. Mucous membranes dry and pink. Orotracheally intubated NECK: Trachea midline. Cannot appreciate JVD due to body habitus. right IJ is clean dry and intact CARDIOVASCULAR: Regular rate and rhythm. Without murmur, no JVD. RESPIRATORY:Breath sounds equal bilaterally, but reduced anteriorly and in bases due to abdominal distention. GASTROINTESTINAL: Abdomen distended, nontender obese. There is drainage from bilateral flanks, previous paracentesis sites. MUSCULOSKELETAL: Extremities -bilateral lower extremity 1+ pitting edema NEUROLOGICAL: On the ventilator and moving all 4 extremities spontaneously. Follows simple commands such as thumbs up with bilateral hands. No obvious cranial nerve deficits. Motor grossly within normal limits. Date of Insertion: Jan 13, 2018 Line: Central Venous Catheter Side: Right Location: Internal, Jugular A/P Assessment and Plan NEURO/PSYCH: Alcohol withdrawal Alcohol dependence On propofol for sedation while intubated currently at 30 mcg/kg/min with as needed oxycodone 20 mg by tube every 4 hours as needed pain 1 through 5 Dexmedetomidine drip for vent weaning ordered Currently receiving thiamine 100 mg IV daily. Receiving multivitamin and folate and TPN RESP: Acute hypoxemic respiratory failure Likely OHS, STAS PRVC 18/550/1.08/16/34 Ventilator bundle. Albuterol/ipratropium aerosols every 4 hours, albuterol aerosols every 2 hours as needed dyspnea Chest x-ray in 01/14-stable pulmonary edema/possible left lower lobe effusion. continue to hold furosemide 40 mg IV twice daily with acute kidney injury CXR 01/18: unchanged. Recheck in a.m. 01/21 Still failing SBT. still weak. CV: History of hypertension -Holding amlodipine 5 mg due to GI bleed and Spironolactone 50 mg p.o. daily -Systolic hypertension. As needed labetalol, Nitropaste and nicardipine drip to maintain systolic blood pressure less than 170 -continue to hold furosemide 40 mg IV twice daily GI: Upper GI bleed secondary to esophageal varices Ascites/abdominal Liver cirrhosis/hepatic steatosis Cholelithiasis Elevated lipase Elevated ammonia Hypoalbuminemia/moderate protein calorie malnutrition EGD 12/28 revealed -esophageal varices/nipple midesophagus with 3 bands noted. Portal gastropathy. Hiatal hernia. Repeat EGD per GI Dobbhoff tube now on trickle feeds with Nepro goal 50 cc an hour: increase TF to goal.. TPN at 42 mL: would ideally like to d/c TPN when at goal. Pentoxifylline 400 mg every 8 hours: hold this as it is unable to be crushed and placed in feeding tube. IV BID PPI. Status post paracentesis 12/28-3 L. repeat paracentesis with 3.5L removed CT abdomen/pelvis revealed no sequelae of pancreatitis. CT aorta revealed no signs of dissection or leakage. Lactulose 30 every 12 hours for elevated ammonia/BM Continue metoclopramide 5 every 8. MELD score in a.m. 01/09 - . Similar findings since,although continues to worsen. MELD 01/16 - . MELD 01/19 - . FEN//Endo: Hypernatremia -Monitor renal function closely. Sliding scale insulin Accu-Cheks with NovoLog/low regimen every 4 hours to maintain euglycemia 10 units insulin in TPN continue free water 300 cc every 4 hours add 1/4 NS @ 100 cc/hr 2 L have adjusted NaAcet, KAcet, KCl to minimize sodium in TPN ID: Probable sepsis Noted staph epi blood culture 12/31+ probable contamination Possible SBP -Klebsiella oxycota 01/07 continue zosyn (renally dosed) s/p linezolid continue diflucan empirically given he has been on TPN and fungemia may be a risk. persistent fevers and leukocytosis despite maximal therapy is concerning. Repeat sputum cx 01/05 no growth wbc continues to rise, as well as LFTs. peritoneal fluid: NGTD. Pertinent cultures 01/07 -peritoneal fluid -Klebsiella oxycota 12/31 -blood cultures 1 out of 4 staph epi. 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 Hb 8 INR 1.4 today. s/p 1 unit of PRBC 2017 and transfuse 3 units PRBCs 01/08. 2 unit PRBCs 01/09 -Serially monitor INR, phytonadione 5 mg given 12/31 and daily days has been completed -Hemoglobin level appear to have stabilized Follow-up CBC in a.m. 01/21 -> OK RENAL: Acute kidney injury- persistent, worsening. Possible hepatorenal syndrome Possible contrast nephropathy, vs HRS. Urine sodium 11. Urine creatinine elevated. Negative urine eosinophils. No hydronephrosis on CAT scan. Nephrology Dr. Elder. No hydronephrosis PROPH: -Bilateral lower extremity SCDs. IV pantoprazole twice daily. Chemical DVT prophylaxis is contraindicated at this time LINES: -left IJ CVL placed 12/31, d/c 01/13 - right IJ CVL placed 01/13 to current Overall impression: Intractable ascites and end-stage hepatic failure. Requiring continuous manipulations to keep alive. Truly dependent on artificial support. The patient is actively dying and has been for several weeks. We will likely proceed with withdrawal of artificial support in the morning when the mother is ready. Uri Chavez MD Jan 21, 2018 07:11
[2018-01-21] MEDS: THIAMINE HCL 100 MG TAB PO SCH (07:59)
[2018-01-21] MEDS: PANTOPRAZOLE SODIUM 40 MG VIAL IV PUSH SCH ×2 (07:59→19:52)
[2018-01-21] MEDS: CHLORHEXIDINE 0.12% (ORAL KIT) 15 ML CUP MT SCH ×2 (08:00→19:51)
[2018-01-21] MEDS ORDERED: LACTULOSE SYRUP 20 GM/30 ML CUP PO SCH (09:00)
[2018-01-21] MEDS: SODIUM CHLORIDE 0.9% FLUSH 10 ML FLUSH IV FLUSH SCH (09:00)
[2018-01-21] MEDS: FLUCONAZOLE 100 MG PREMIX BAG 50 ML IV SCH (12:52)
--- NOTE | 2018-01-21 13:58 | HHI.NPPN ---
Subjective History of Present Illness 52-year-old male, Alcoholic hepatitis/cirrhosis received contrast study and acute renal failure Objective Data Data Vital Signs Date Time Temp Pulse Resp B/P (MAP) Pulse Ox O2 Delivery O2 Flow Rate FiO2 01/21/18 11:29 95 35 01/21/18 10:00 90 01/21/18 08:00 99.3 89 26 138/62 (87) 94 01/21/18 08:00 89 01/21/18 08:00 35 01/21/18 07:47 96 35 01/21/18 07:00 94 Mechanical Ventilator 35 01/21/18 06:00 90 01/21/18 04:26 96 35 01/21/18 04:00 100.4 92 24 137/65 (89) 95 01/21/18 04:00 35 01/21/18 04:00 92 01/21/18 02:00 92 01/21/18 00:45 95 35 01/21/18 00:00 35 01/21/18 00:00 92 01/21/18 00:00 99.6 92 26 142/67 (92) 95 01/20/18 22:00 92 01/20/18 20:00 35 01/20/18 20:00 99.9 96 24 127/62 (83) 94 01/20/18 20:00 96 01/20/18 19:38 96 35 01/20/18 19:00 95 Mechanical Ventilator 35 01/20/18 18:00 90 01/20/18 17:09 97 35 01/20/18 16:00 98.9 92 34 133/67 (89) 97 01/20/18 16:00 35 01/20/18 16:00 92 01/20/18 14:00 86 -: 01/21/18 0545 01/21/18 0545 Physical Exam General Appearance: Well Developed, Well Nourished Eyes Eye Exam: Jaundice Neck Neck Exam: Neck Supple Pulmonary Resp Exam: Clear Bilaterally, Diminished Breath Sounds Cardiology CV Exam: Regular, Normal Sinus Rhythm Gastrointestinal/Abdomen GI Exam: Soft, Distended Extremeties Extremities Exam: Moderate Edema Assessment/Plan Problem List: (1) Acute renal failure ICD Codes: N17.9 - Acute kidney failure, unspecified Plan: Patient has liver cirrhosis and possible hepatorenal syndrome is considered, unlikely as he is non oliguric. Some improvement in renal function. CR 4.2 UOP 1 L Hypernatremia is noted. Lasix 40 mg IV BID restart today getting free water hypotonic solution Na 142 cr 4.2 very tense Ascites worsening renal failure mother talking to palliative care [facility] LFT d/w mother poor outcome anticipated , not a candidate for dialysis as has no liver functions and not considered for liver Txp (2) Upper GI bleed ICD Codes: K92.2 - Gastrointestinal hemorrhage, unspecified Plan: GI is following (3) Alcoholic cirrhosis ICD Codes: K70.30 - Alcoholic cirrhosis of liver without ascites Plan: Followed by GI (4) Coagulopathy ICD Codes: D68.9 - Coagulation defect, unspecified Plan: Patient has received blood product, FFP and PRBCs (5) Ascites ICD Codes: R18.8 - Other ascites Plan: Due to alcoholic cirrhosis Problem Qualifiers (1) Acute renal failure: Qualified Codes: N17.9 - Acute kidney failure, unspecified (2) Alcoholic cirrhosis: Qualified Codes: K70.31 - Alcoholic cirrhosis of liver with ascites (3) Ascites: Qualified Codes: K70.31 - Alcoholic cirrhosis of liver with ascites Ciro Elder MD Jan 21, 2018 13:58
[2018-01-21] MEDS: FUROSEMIDE 40 MG/4 ML VIAL IV PUSH SCH (17:00)
[2018-01-21] MEDS: LORazepam 2 MG/ML VIAL IV PUSH SCH ×4 (18:47→23:45)
[2018-01-21] MEDS: oxyCODONE HCL ORAL CONC 5 MG/0.25 ML SYRINGE PO SCH ×2 (19:50→22:07)
[2018-01-21] MEDS: [UNRECOGNIZED DRUG - OTHER] IV-CENTRAL SCH ×8 (19:51)
[2018-01-21] MEDS: POTASSIUM CHLORIDE IV-CENTRAL SCH ×8 (19:51)
[2018-01-21] MEDS: MAGNESIUM CHLORIDE IV-CENTRAL SCH ×8 (19:51)
[2018-01-22] VITALS (14 sets, daily range): BP systolic 123–137; BP diastolic 56–62; PULSE 78–86; RESP 20–26; TEMP 97.5–98.2; O2SAT 90–94
[2018-01-22] MEDS: LORazepam 2 MG/ML VIAL IV PUSH SCH ×9 (02:17→18:00)
[2018-01-22] MEDS: oxyCODONE HCL ORAL CONC 5 MG/0.25 ML SYRINGE PO SCH ×4 (02:17→15:11)
[2018-01-22] MEDS: RESP: ALBUTEROL 2.5 MG/IPRATROPIUM 0.5 MG NEB (SCH) NEB ×4 (03:05→15:37)
[2018-01-22] MEDS: PROPOFOL 1000 MG/100 ML INJ 100 ML IV PRN ×5 (03:24→13:50)
[2018-01-22] MEDS: INSULIN NovoLIN REGULAR SUPPLEMENTAL SCALE SQ SCH ×4 (03:25→12:51)
[2018-01-22 05:45] LABS: HEMATOCRIT 26.6 % (39.0-51.0); HEMOGLOBIN 8.6 GM/DL (13.0-17.0); MEAN CELL VOLUME 96.2 FL (80.0-100.0); MEAN CORPUSCULAR HEMOGLOBIN 31.1 PG (27.0-34.0); MEAN CORPUSCULAR HGB CONC 32.4 % (32.0-36.0); PLATELET COUNT 358 TH/MM3 (150-450); RED BLOOD COUNT 2.77 MIL/MM3 (4.50-5.90); RED CELL DISTRIBUTION WIDTH 27.1 % (11.6-17.2); WHITE BLOOD COUNT 23.4 TH/MM3 (4.0-11.0)
[2018-01-22] MEDS: METOCLOPRAMIDE HCL 10 MG/2 ML VIAL IV PUSH SCH ×2 (06:01→13:48)
[2018-01-22] MEDS: ARTIFICIAL TEARS OPTH SOLN 15 ML BTL EACH EYE SCH ×2 (06:01→14:04)
[2018-01-22 06:06] LABS: BICARBONATE 16.2 MEQ/L (21.0-32.0); CALCIUM 9.2 MG/DL (8.5-10.1); CREATININE 5.2 MG/DL (0.60-1.30)
[2018-01-22] MEDS: CHLORHEXIDINE 0.12% (ORAL KIT) 15 ML CUP MT SCH (08:10)
[2018-01-22] MEDS: HYOSCYAMINE 0.5 MG/ML AMP IV PUSH SCH ×2 (08:10→13:48)
[2018-01-22] MEDS: SODIUM CHLORIDE 0.9% FLUSH 10 ML FLUSH IV FLUSH SCH (08:13)
[2018-01-22] MEDS: PANTOPRAZOLE SODIUM 40 MG VIAL IV PUSH SCH (08:14)
[2018-01-22] MEDS: FUROSEMIDE 40 MG/4 ML VIAL IV PUSH SCH ×2 (08:14→18:00)
[2018-01-22] MEDS: THIAMINE HCL 100 MG TAB PO SCH (08:14)
--- NOTE | 2018-01-22 08:23 | HHI.CCPN ---
Subjective Remarks/Hospital Course Patient is a 52-year-old male with history of alcohol dependence, on chronic Coumadin for "abdominal vein thrombosis", history of hypertension who presented to the emergency department with complaints of increasing jaundice, increasing abdominal girth and vomiting jade blood multiple times over the last 2 days. Patient admits to being a heavy drinker he drinks about 1.75 L bottle hard liquor every 2 days. ER workup showed patient had a hemoglobin of 8.1, INR was 15.7. PTT 156.1, white count of 13.6 with 10% bands. Also sodium was noted to be 119, AST 439 ALT 115 and bilirubin of 7.6. A stat CT abdomen pelvis showed moderate ascites, probable cirrhosis and hepatic steatosis, splenomegaly, and gallstones. Patient had been ordered to receive 2 units of PRBC, and total 4 units of FFP. INR, Hb will be rechecked after this and additional FFP will be given accordingly. 10 mg vitamin K also ordered. Unfortunately hospital is out of [facility]. I evaluated the patient in the emergency department. He initially had an alcohol level of 135. At the time of my exam he is in moderate distress appears to be slightly tremulous. I have initiated CIWA protocol. I will also start its Rocephin for SBP prophylaxis. Patient had been started on IV Protonix infusion and octreotide which will be continued. Patient clinically also appears to have at least moderate ascites but I am unable to perform paracentesis due to elevated INR. 12/28: Currently resting in bed complaining of abdominal pain. Short of breath and tachypnea. Complaining of nausea currently. Remains on nasal cannula. Patient does not desire his mother's to have knowledge about his alcohol use. 12/29: Afebrile. Remains intubated post EGD yesterday due to worsening hypoxia. Currently on PSV trial 26/05 at 40%. Remains on dexmedetomidine drip and attempt to wean with alcohol use and likely progression to DTs. Banding of varices noted. Pentoxifylline 400 mg every 8 hours initiated with appropriate 12/30: Awake on dexmedetomidine drip at 1 mcg/kg/min. Following commands and attempting to write. Nods his head when states he feels the effects of alcohol withdrawals. Afebrile. Continues to leak from prior site of paracentesis. 12/31: Diminished urine output noted overnight. Increasing FiO2 requirement. Bladder pressures measured currently elevated around 25. Will place tube to suction and notify GI. Nephrology consult placed. Will need central line. 01/01: T-max 100. Currently 99. Meld score 34. Discriminant function is 34. Tamera alcohol scale score 7. Arousable the ventilator. FiO2 increased to 40- 60% overnight. 350 cc from NG tube overnight. 01/02: T-max 99.8. No bowel movement overnight. Abdomen remains distended. More ascites output from left lower quadrant previous paracentesis site. Arousable on the ventilator and follows commands on sedation vacation. Remains on PEEP of 12. FiO2 60%. 01/03: Patient remains intubated sedated very critical. FiO2 had to be increased to 70%. I have increase PEEP from 12-14. Chest x-ray remains unchanged. T-max 100.5. Urine output 1.3 L. BUN 42 creatinine 3.5 hemoglobin 7.4. Bedside ultrasound shows at least moderate ascites. Plan for thoracentesis for fluid removal and also will help with vent dynamic. 01/04: Persistent problems with oxygenation related to diffuse basilar atelectasis. Patient converted to airway pressure release ventilation this morning. Caloric intake probably on the high side in view of propofol infusion. Will reduce TPN to 60 cc/h. Enteral feedings at trickle rate. 01/05: Patient placed on APRV mode 01/04 with T-hi 5 sec Pres hi 30, with release volumes around 800 cc. Good oxygen saturation 30% FiO2. X-ray shows improvement in bilateral consolidation persistent left lower lobe infiltrate. Urine output 1.5 L also 1.5 L out from left paracentesis site. Transfuse 1 U PRBC 01/06: Remains critically ill but making some progress. Reduce PHigh to 26, T high to 4.5, if tolerated well, attempt to switch to PC/AC with PEEP 18-20 and rita iTime. Urine output adequate 2.3 L in 24 hours. Paracentesis site draining approximately 1.4 L despite paracentesis and removal of 3.5 L yesterday. Increase Lasix to 60 mg IV q6hr, Creat improved to 3.29 01/07: Oxygenation modestly improved with very aggressive mean airway pressures , continue PEEP 1820. Abdominal girth and ascites have conspired to reduce functional residual capacity. Now a permanent peritoneal drain is in place and we will attempt to make some progress with gas exchange. Between the intractable ascites, morbid obesity, and respiratory failure it will be very difficult to remove this patient from positive pressure ventilation. 01/08: ET tube has migrated above the vocal cords. Directly visualized with glide scope after receiving 40 mg etomidate. Cuff was deflated several times and advanced with adequate tidal volumes post advancement. Follow-up chest x- ray revealed adequate placement of ET tube. Remains on furosemide will change to drip today. 01/09: Afebrile. FiO2 down to 65%. Continues with profuse drainage from pigtail site. Not tolerating tube feeds. Hemoglobin 6.4 units PRBCs. Will transfuse 1 unit today. 01/10: FiO2 down to 40%. PEEP decreased to 12. Arousable on propofol and fentanyl drips and able to follow commands. Transfuse 1 additional unit PRBCs overnight hemoglobin currently 8.4. 01/11: T-max 99. PEEP decreased to 10. Continue to be aroused on propofol and fentanyl drips and follows commands. Hemoglobin stable 01/12: PEEP decreased from 10 - 8. Remains arousable on propofol and fentanyl drips and follows commands. Hemoglobin stable. A.m. labs from [facility] currently pending. 01/13: Afebrile. Currently awake and alert on the ventilator. Attempting CPAP trial 05/16 at 35%. No new issues overnight. 01/14: no improvements. awake on the ventilator. CAM-. capacitated. very weak. wbc continues to rise. MELD 29. overall very poor prognosis. had a discussion with the patient. he is too weak to write things down, but he can nod yes or no and give thumbs up/down. passed complete CAM-ICU assessment and not delirious. RASS 0 and oriented to person and place. difficult to assess time orientation. I explained his hospital course, along with all of the organ systems that were failing, and he nodded to express understanding. I told him that his ex- was legally still to him and legally his medical decision maker and she had been making healthcare decisions for him, and he expressed quite clearly that he did not want her to make decisions on his behalf. Palliative care was at bedside and confirmed this assessment. It is my assessment that the patient has full capacity to make decisions and to designate or un-designate healthcare surrogates. 01/15: T-max 99.9/also Tcurrent. Tolerated CPAP trial 12 hours yesterday however failed weaning parameters with high RSBI. Tube feeds have not been initiated. Positive BM 1. Continues with very slow drainage from prior pigtail catheter placed for abdominal ascites. Currently denying pain 01/16: back down to admission weight. all labs continue to worsen. MELD 31. remains febrile with elevated wbc. cultures NGTD. 01/17: no meaningful improvements. sodium rising. renal function essentially unchanged. LFTs still very elevated. cultures ngtd. wbc remains high despite empiric abx therapy. still febrile. 01/18: no changes. Cr 2.5 from 2.6. TBili remains over 20. febrile and wbc up to 20k despite addition of fungal coverage. no culture has grown anything. overall , very poor prognosis. mother continues to press on for aggressive care. 01/19: no improvements. Cr up to 2.7. TBili 21. still spiking fevers. mother continues to press for aggressive care, although we do not have much more to offer. Subjective 01/20: Creatinine up to 3.5. Total bilirubin around 20. Intermittent afebrile. Not a candidate for extubation. Currently on propofol at 30 mg/kg/min. 01/21: 650 mls urine overnight but renal failure persists. Volume is not the problem. Tolerating enteral feeds, taper TPN. Update 1600 hours. Patient's mother who is now his power of securities attorney for healthcare has decided to withdraw artificial support. She expresses a full understanding that this is not a survivable disease process. She wants to be assured that he will not experience discomfort when we extubate. She is adamant that he receive sedation and analgesia because he appears to struggle on the ventilator and will struggle more when extubated. 01/22: Continued deterioration in renal, hepatic, and hematologic function. Pain relief is improved. Objective Vital Signs Date Time Temp Pulse Resp B/P (MAP) Pulse Ox O2 Delivery O2 Flow Rate FiO2 01/22/18 06:00 78 01/22/18 04:10 92 50 01/22/18 04:00 97.9 24 137/62 (87) 01/21/18 19:00 Mechanical Ventilator Intake and Output 6/13/18 6/13/18 6/14/18 08:00 16:00 00:00 Intake Total 290 ml Output Total 200 ml Balance 90 ml Result Diagram: 01/22/18 0500 01/22/18 0500 Imaging Last Impressions Abdomen X-Ray 01/20/18 0000 Signed Impressions: CONCLUSION: The tip of the orogastric tube is within the stomach. Chest X-Ray 01/16/18 0600 Signed Impressions: CONCLUSION: Support apparatus unchanged. Basilar airspace disease also stable since January 14. Liver Ultrasound 12/31/17 Signed Impressions: CONCLUSION: 1. Diffuse increased echogenicity throughout the liver suggestive of fatty inf iltration and/or hepatocellular disease. 2. Hepatomegaly. 3. Thickened gallbladder wall at 12 mm. No definite gallstones are seen. As ca n be seen with chronic gallbladder disease. Aorta CTA 12/28/17 Signed Impressions: Service Date/Time: Thursday, December 28, 2017 21:00 - CONCLUSION: 1. Normal thoracic and abdominal aorta. No dissection/aneurysm seen. 2. Bibasilar consolidation and patchy densities in the upper lobes. 3. Hepatic steatosis with possible cirrhosis and moderate abdominal ascites. 4. Cholelithiasis. Aldair Francis MD Abdomen/Pelvis CT [id number]/[id number] Signed Impressions: Service Date/Time: Wednesday, December 27, 2017 21:00 - CONCLUSION: 1. Diffusely abnormal liver likely secondary to hepatic steatosis and possible changes of cirrhosis. 2. Splenomegaly. This could be secondary to portal hypertension. 3. Moderate ascites. 4. Calcified gallstone. Stefan Grier MD Gall Bladder Ultrasound 12/27/17 Signed Impressions: Service Date/Time: Wednesday, December 27, 2017 21:16 - CONCLUSION: 1. Diffusely abnormal liver secondary to cirrhosis and hepatic steatosis. 2. Gallbladder wall thickening. This is nonspecific. This can be seen with hepatic disease. It also can be seen with cholecystitis in the correct clinical situation. Gallstones were not demonstrated on the ultrasound examination but are clearly present on the CT examination. Stefan Grier MD Procedures Paracentesis EGD Objective Remarks GENERAL: 52-year-old male lying in bed. SKIN: Warm and dry. Jaundiced HEAD: Atraumatic. Normocephalic. EYES: Pupils equal and round 3 millimeters, positive for conjunctival icterus. ENT: No nasal bleeding or discharge. Mucous membranes dry and pink. Orotracheally intubated NECK: Trachea midline. Cannot appreciate JVD due to body habitus. right IJ is clean dry and intact CARDIOVASCULAR: Regular rate and rhythm. Without murmur, no JVD. RESPIRATORY:Breath sounds equal bilaterally, but reduced anteriorly and in bases due to abdominal distention. GASTROINTESTINAL: Abdomen distended, nontender obese. There is drainage from bilateral flanks, previous paracentesis sites. MUSCULOSKELETAL: Extremities -bilateral lower extremity 1+ pitting edema NEUROLOGICAL: On the ventilator and moving all 4 extremities spontaneously. Otherwise largely unresponsive. Date of Insertion: Jan 13, 2018 Line: Central Venous Catheter Side: Right Location: Internal, Jugular A/P Assessment and Plan NEURO/PSYCH: Alcohol withdrawal Alcohol dependence On propofol for sedation while intubated currently at 30 mcg/kg/min with as needed oxycodone 20 mg by tube every 4 hours as needed pain 1 through 5 Dexmedetomidine drip for vent weaning ordered Currently receiving thiamine 100 mg IV daily. Receiving multivitamin and folate and TPN RESP: Acute hypoxemic respiratory failure Likely OHS, STAS PRVC 18/550/1.08/16/34 Ventilator bundle. Albuterol/ipratropium aerosols every 4 hours, albuterol aerosols every 2 hours as needed dyspnea Chest x-ray in 01/14-stable pulmonary edema/possible left lower lobe effusion. continue to hold furosemide 40 mg IV twice daily with acute kidney injury CXR 01/18: unchanged. Recheck in a.m. 01/21 Still failing SBT. still weak. CV: History of hypertension -Holding amlodipine 5 mg due to GI bleed and Spironolactone 50 mg p.o. daily -Systolic hypertension. As needed labetalol, Nitropaste and nicardipine drip to maintain systolic blood pressure less than 170 -continue to hold furosemide 40 mg IV twice daily GI: Upper GI bleed secondary to esophageal varices Ascites/abdominal Liver cirrhosis/hepatic steatosis Cholelithiasis Elevated lipase Elevated ammonia Hypoalbuminemia/moderate protein calorie malnutrition EGD 12/28 revealed -esophageal varices/nipple midesophagus with 3 bands noted. Portal gastropathy. Hiatal hernia. Repeat EGD per GI Dobbhoff tube now on trickle feeds with Nepro goal 50 cc an hour: increase TF to goal.. TPN at 42 mL: would ideally like to d/c TPN when at goal. Pentoxifylline 400 mg every 8 hours: hold this as it is unable to be crushed and placed in feeding tube. IV BID PPI. Status post paracentesis 12/28-3 L. repeat paracentesis with 3.5L removed CT abdomen/pelvis revealed no sequelae of pancreatitis. CT aorta revealed no signs of dissection or leakage. Lactulose 30 every 12 hours for elevated ammonia/BM Continue metoclopramide 5 every 8. MELD score in a.m. 01/09 - . Similar findings since,although continues to worsen. MELD 01/16 - . MELD 01/19 - . FEN//Endo: Hypernatremia -Monitor renal function closely. Sliding scale insulin Accu-Cheks with NovoLog/low regimen every 4 hours to maintain euglycemia 10 units insulin in TPN continue free water 300 cc every 4 hours add 1/4 NS @ 100 cc/hr 2 L have adjusted NaAcet, KAcet, KCl to minimize sodium in TPN ID: Probable sepsis Noted staph epi blood culture 12/31+ probable contamination Possible SBP -Klebsiella oxycota 01/07 continue zosyn (renally dosed) s/p linezolid continue diflucan empirically given he has been on TPN and fungemia may be a risk. persistent fevers and leukocytosis despite maximal therapy is concerning. Repeat sputum cx 01/05 no growth wbc continues to rise, as well as LFTs. peritoneal fluid: NGTD. Pertinent cultures 01/07 -peritoneal fluid -Klebsiella oxycota 12/31 -blood cultures 1 out of 4 staph epi. 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 Hb 8 INR 1.4 today. s/p 1 unit of PRBC 2017 and transfuse 3 units PRBCs 01/08. 2 unit PRBCs 01/09 -Serially monitor INR, phytonadione 5 mg given 12/31 and daily days has been completed -Hemoglobin level appear to have stabilized Follow-up CBC in a.m. 01/21 -> OK RENAL: Acute kidney injury- persistent, worsening. Possible hepatorenal syndrome Possible contrast nephropathy, vs HRS. Urine sodium 11. Urine creatinine elevated. Negative urine eosinophils. No hydronephrosis on CAT scan. Nephrology Dr. Elder. No hydronephrosis PROPH: -Bilateral lower extremity SCDs. IV pantoprazole twice daily. Chemical DVT prophylaxis is contraindicated at this time LINES: -left IJ CVL placed 12/31, d/c 01/13 - right IJ CVL placed 01/13 to current Overall impression: Intractable ascites and end-stage hepatic failure. Requiring continuous manipulations to keep alive. Truly dependent on artificial support. The patient is actively dying and has been for several weeks. We will likely proceed with withdrawal of artificial support in the morning when the mother is ready. Continued multiple organ deterioration. Patient can not survive this disease process. Uri Chavez MD Jan 22, 2018 08:23
[2018-01-22] MEDS ORDERED: HYDROmorphone HCL PF 4 MG/ML VIAL IV PUSH PRN (08:30)
[2018-01-22] MEDS ORDERED: fentaNYL DRIP 250 ML IV PRN ×2 (08:30→16:30)
[2018-01-22] MEDS ORDERED: LORazepam 2 MG/ML VIAL IV PUSH PRN ×3 (08:30→17:00)
--- NOTE | 2018-01-22 10:28 | HHI.HCPN ---
Reason for visit a. To assist with evaluation and management of symptoms including: dyspnea, pain. b. To assist medical decision maker(s) with: better understanding of current medical conditions; weighing benefits/burdens of medical treatment options; making medical treatment decisions. . Subjective/Interval History Patient seen to follow-up today on comfort/goals. Notified that mother may wish to transition to comfort focus. Pt remains critically ill in ICU. No improvements in multi organ failure. CXR cont to indicate bilateral opacity, no change. +leukocytosis 23.4. H&H stable 8.6/26.6. BUN creatinine worsening 106/5.20. Has been on full vent support, sedation due to asynchrony, discomfort. Now on diprivan, +fentanyl. Patient seen in room, no visitors present. He is nonresponsive to my exam. + diprivan @ 50mcgs/kg/min, fentanyl 50mcgs hr. No apparent distress/discomfort. +Jaundiced. Low urine output. + green/brown stool in rectal drain. Discussed with critical care, primary nurse at length. Nursing to notify me when mother/HC proxy arrives. Exhibits b, c in chart for possible compassionate withdrawal of life support. Family/friend interactions 1500 later notified of patient mother arrival. Met with her at bedside with her approximately 30 minutes. Review patient's clinical course current poor prognosis for survival. She indicates based on many ongoing discussions with all of the providers she understands this is likely nonsurvivable and he will not regain any quality of life she wishes to proceed with compassionate withdrawal of life support, transition to comfort focus only today. She has been in communication with screw machine repairer, family etc. for arrangements regarding the patient's estate etc. Anticipatory guidance provided. All questions answered to the best of my ability. She has already met with the brake shoe rebuilder today. She is not certain what time this will occur though she thinks later this afternoon. 1600-notified by nursing that mother is requesting to proceed with withdrawal of life support now. exhibits B, C signed. Again reviewed with anticipatory guidance, comfort orders to be entered now. Advance Directives Living Will: Never completed Health Care Surrogate: Never completed Durable Power of Rustic Fence Builder: Never completed Advance Directive Specifics Health Care Surrogate(s): Documented care wishes: No written advanced directives. . Objective Vital Signs Date Time Temp Pulse Resp B/P (MAP) Pulse Ox O2 Delivery O2 Flow Rate FiO2 01/22/18 08:21 91 50 01/22/18 06:00 78 01/22/18 04:10 92 50 01/22/18 04:00 80 01/22/18 04:00 50 01/22/18 04:00 97.9 80 24 137/62 (87) 93 01/22/18 02:00 82 01/22/18 01:29 92 50 01/22/18 00:00 50 01/22/18 00:00 98.2 86 26 128/61 (83) 93 01/22/18 00:00 86 01/21/18 22:11 93 50 01/21/18 22:00 88 01/21/18 20:00 99.9 92 25 154/74 (100) 94 01/21/18 20:00 92 01/21/18 20:00 35 01/21/18 19:40 94 50 01/21/18 19:00 94 Mechanical Ventilator 35 01/21/18 18:00 94 01/21/18 16:44 94 40 01/21/18 16:00 35 01/21/18 16:00 100.3 96 31 153/72 (99) 94 01/21/18 16:00 96 01/21/18 14:00 92 01/21/18 12:00 88 01/21/18 12:00 99.5 88 29 150/70 (96) 94 01/21/18 12:00 35 01/21/18 11:29 95 35 Intake & Output 01/22/18 01/22/18 07:00 19:00 Intake Total 2567.2937 ml Output Total 200 ml Balance 2367.2937 ml IV Total 2477.2937 ml Tube Irrigant 90 ml Output Urine Total 200 ml Stool Total 0 ml Physical Exam CONSTITUTIONAL/GENERAL: critically ill, obese male, in no apparent distress. TUBES/LINES/DRAINS: ETT, OGT, rt jugular central line, bilateral soft wrist restraints, Key, rectal tube, SCDs. SKIN: + significant jaundice EYES: + scleral icterus, slight scleral edema. ENT: Nose without bleeding or purulent drainage. CARDIOVASCULAR: RRR. no murmur. 2+ generalized edema RESPIRATORY/CHEST: On mech vent, respirations even/unlabored via ETT,PRVC. breath sounds course throughout. GASTROINTESTINAL: abd distended, firm, bowel sounds faint/hypoactive. OGT clamped. GENITOURINARY: Without palpable bladder distension- difficult to palp 2/2 abd distention. Key catheter in place dark tea colored urine MUSCULOSKELETAL: Lower extremities + edema. NEUROLOGICAL: not responsive, sedated on vent; does not respond to voice or pain stimuli. no eye opening. PSYCHIATRIC: unable to assess, sedated on vent Diagnostic Tests Laboratory Laboratory Tests Test 01/20/18 05:00 01/21/18 05:45 01/22/18 05:00 White Blood Count 17.4 TH/MM3 (4.0-11.0) 19.7 TH/MM3 (4.0-11.0) 23.4 TH/MM3 (4.0-11.0) Red Blood Count 2.87 MIL/MM3 (4.50-5.90) 3.02 MIL/MM3 (4.50-5.90) 2.77 MIL/MM3 (4.50-5.90) Hemoglobin 8.8 GM/DL (13.0-17.0) 9.2 GM/DL (13.0-17.0) 8.6 GM/DL (13.0-17.0) Hematocrit 27.3 % (39.0-51.0) 28.5 % (39.0-51.0) 26.6 % (39.0-51.0) Mean Corpuscular Volume 95.3 FL (80.0-100.0) 94.4 FL (80.0-100.0) 96.2 FL (80.0-100.0) Mean Corpuscular Hemoglobin 30.7 PG (27.0-34.0) 30.4 PG (27.0-34.0) 31.1 PG (27.0-34.0) Mean Corpuscular Hemoglobin Concent 32.2 % (32.0-36.0) 32.2 % (32.0-36.0) 32.4 % (32.0-36.0) Red Cell Distribution Width 26.5 % (11.6-17.2) 26.9 % (11.6-17.2) 27.1 % (11.6-17.2) Platelet Count 280 TH/MM3 (150-450) 349 TH/MM3 (150-450) 358 TH/MM3 (150-450) Mean Platelet Volume 9.4 FL (7.0-11.0) 9.8 FL (7.0-11.0) 10.0 FL (7.0-11.0) Prothrombin Time 14.4 SEC (9.8-11.6) 13.9 SEC (9.8-11.6) Prothromb Time International Ratio 1.4 RATIO 1.4 RATIO Activated Partial Thromboplast Time 31.3 SEC (24.3-30.1) 33.4 SEC (24.3-30.1) Blood Urea Nitrogen 75 MG/DL (7-18) 88 MG/DL (7-18) 106 MG/DL (7-18) Creatinine 3.50 MG/DL (0.60-1.30) 4.25 MG/DL (0.60-1.30) 5.20 MG/DL (0.60-1.30) Random Glucose 118 MG/DL (74-106) 152 MG/DL (74-106) 128 MG/DL (74-106) Total Protein 6.5 GM/DL (6.4-8.2) 6.9 GM/DL (6.4-8.2) Albumin 2.2 GM/DL (3.4-5.0) 2.2 GM/DL (3.4-5.0) Calcium Level 9.6 MG/DL (8.5-10.1) 9.8 MG/DL (8.5-10.1) 9.2 MG/DL (8.5-10.1) Alkaline Phosphatase 117 U/L (45-117) 138 U/L (45-117) Aspartate Amino Transf (AST/SGOT) 167 U/L (15-37) 188 U/L (15-37) Alanine Aminotransferase (ALT/SGPT) 79 U/L (12-78) 87 U/L (12-78) Total Bilirubin 19.2 MG/DL (0.2-1.0) 19.6 MG/DL (0.2-1.0) Sodium Level 149 MEQ/L (136-145) 142 MEQ/L (136-145) 140 MEQ/L (136-145) Potassium Level 3.7 MEQ/L (3.5-5.1) 3.9 MEQ/L (3.5-5.1) 4.6 MEQ/L (3.5-5.1) Chloride Level 114 MEQ/L (98-107) 109 MEQ/L (98-107) 107 MEQ/L (98-107) Carbon Dioxide Level 23.7 MEQ/L (21.0-32.0) 18.6 MEQ/L (21.0-32.0) 16.2 MEQ/L (21.0-32.0) Anion Gap 11 MEQ/L (5-15) 14 MEQ/L (5-15) 17 MEQ/L (5-15) Estimat Glomerular Filtration Rate 19 ML/MIN (>89) 15 ML/MIN (>89) 12 ML/MIN (>89) Phosphorus Level 5.1 MG/DL (2.5-4.9) Magnesium Level 3.0 MG/DL (1.5-2.5) Ammonia 42 MCMOL/L (11-32) Result Diagram: 01/22/18 0500 01/22/18 0500 Microbiology Microbiology Date/Time Source Procedure Growth Status 01/13/18 15:43 Blood Other Aerobic Blood Culture - Final NO GROWTH IN 5 DAYS Complete 01/13/18 15:43 Blood Other Anaerobic Blood Culture - Final NO GROWTH IN 5 DAYS Complete 01/14/18 18:10 Fluid Peritoneal Fluid Gram Stain - Final Resulted 01/14/18 18:10 Fluid Peritoneal Fluid Body Fluid Culture - Preliminary NO GROWTH IN 48 HOURS. Resulted 01/13/18 09:58 Sputum Endotracheal Gram Stain - Final Complete 01/13/18 09:58 Sputum Endotracheal Sputum Culture - Final HEAVY GROWTH NORMAL RESPIRATORY AISHWARYA Complete 12/30/17 08:45 Urine Catheterized Urine Urine Culture - Final NO GROWTH IN 48 HOURS. Complete Imaging Last Impressions Chest X-Ray 01/21/18 0600 Signed Impressions: CONCLUSION: 1. Nasogastric tube is now seen with tip below the [id number] of the radiog raph. 2. Low lung volumes with mild bilateral pulmonary opacity unchanged. Abdomen X-Ray 01/20/18 0000 Signed Impressions: CONCLUSION: The tip of the orogastric tube is within the stomach. Liver Ultrasound 12/31/17 0000 Signed Impressions: CONCLUSION: 1. Diffuse increased echogenicity throughout the liver suggestive of fatty inf iltration and/or hepatocellular disease. 2. Hepatomegaly. 3. Thickened gallbladder wall at 12 mm. No definite gallstones are seen. As ca n be seen with chronic gallbladder disease. Aorta CTA 12/28/17 0000 Signed Impressions: Service Date/Time: Thursday, December 28, 2017 21:00 - CONCLUSION: 1. Normal thoracic and abdominal aorta. No dissection/aneurysm seen. 2. Bibasilar consolidation and patchy densities in the upper lobes. 3. Hepatic steatosis with possible cirrhosis and moderate abdominal ascites. 4. Cholelithiasis. Aldair Francis MD Abdomen/Pelvis CT 12/27/171921 Signed Impressions: Service Date/Time: Wednesday, December 27, 2017 21:00 - CONCLUSION: 1. Diffusely abnormal liver likely secondary to hepatic steatosis and possible changes of cirrhosis. 2. Splenomegaly. This could be secondary to portal hypertension. 3. Moderate ascites. 4. Calcified gallstone. Stefan Grier MD Gall Bladder Ultrasound 12/27/17 0000 Signed Impressions: Service Date/Time: Wednesday, December 27, 2017 21:16 - CONCLUSION: 1. Diffusely abnormal liver secondary to cirrhosis and hepatic steatosis. 2. Gallbladder wall thickening. This is nonspecific. This can be seen with hepatic disease. It also can be seen with cholecystitis in the correct clinical situation. Gallstones were not demonstrated on the ultrasound examination but are clearly present on the CT examination. Stefan Grier MD Assessment and Plan Disease Oriented Problem List: (1) Probable sepsis (2) Abnormal INR (3) Alcoholic cirrhosis (4) Hyponatremia (5) Ascites (6) Acute renal failure (7) Upper GI bleed (8) Coagulopathy (9) Anemia requiring transfusions (10) Transaminitis (11) Hyperbilirubinemia Symptom Scale: (1) Pain 0-10 Scale: Unable to quantify (2) Dyspnea 0-10 Scale: Unable to quantify Pertinent Non-Medical Issues Psychosocial:Lives with his mother, Debo. Legally to estranged , Yuliya (lives in [place]). No children. Spiritual: [employer] agustina. 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 Legal:Patient is not capacitated to make his own health care decisions, uncertain if he will regain capacity. Mr. Cedillo has never completed written advanced directives. According to [place] Statues, medical proxy decision maker would fall to patient's spouse, Steph resulted, Yuliya located Yuliya wishes to serve as legal proxy, though she does wish to involve pt Mother Debo in care/decisions, if Debo wishes to remain involved. Ethical issues impacting care: No known concerns at this time. . Important Contacts Debo Henderson, mother, PROXY as of 01/14/18 : [phone] (cell), ( home) No longer PROXY as 01/14/18 per pt request , Yuliya Henderson, : [phone] (cell) . Prognosis Mr. 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 Overall prognosis is poor. . Code Status: No Code Plan * Patient is not capacitated to make his own health care decisions, uncertain if he will regain capacity. Mr. Cedillo has never completed written advanced directives. According to [place] Statues, medical proxy decision maker would fall to patient's spouse, patient Yuliya Henderson endorses she does wish to serve as healthcare proxy for this patient. Yuliya does also wish to involve patient mother with decision-making however at this time patient mother has expressed that she does not wish to speak with Yuliya. 01/14/18 patient able to communicate some via nodding and gesturing; he indicates he does not wish for his Yuliya to continue to get updates or service decision-maker. He is not able to indicate who he would want to make decisions, by [place] statutes proxy decision making would then fall to his mother . * CODE STATUS : DNR * GOALS: Palliative and critical care has had multiple lengthy meetings with patient mother and proxy. She understands patient has very poor chances for survival due to multiorgan failure. She has verbalized to nursing, critical care that she may wish to transition to comfort focus in the coming day(s). 1615--mother/proxy has elected to proceed with compassionate withdrawal of life support this afternoon, comfort orders entered, exhibits B, C signed and in chart * SYMPTOMS; pain: Some abdominal tenderness. Likely related to disease process. He has previously nodded yes to pain though unable to further qualify or quantify due to intubation /sedation/ limited communication. No apparent pain today to exam. Dyspnea: on mech vent, previously tolerating CPAP though with episodes of tachypnea vent asynchrony, felt would likely require reintubation if extubated due to multiple organ dysfunction, body habitus. No new medication recommendations at this time. Back on sedation, breathing comfortable. * Palliative care will continue to follow throughout hospitalization to assist with clarification of medical treatment goals and symptom management as needed. . Time Spent Total Floor Time (mins): 45 (Chart review, physical exam, discussion with nursing, discussion with critical care attending, multiple discussions with proxy/family.) Attestation To help prompt me to consider important information that might be impacting today's encounter and assessment, information from prior notes written by myself or my colleagues may have been "brought forward" into today's note. My signature on this note, however, is an attestation that I personally performed the exam, history, and/or decision-making noted today, and, unless otherwise indicated, the interactions with patient, family, and staff as well as the review of records all occurred today. I also attest that the listed assessment and stated plan reflect my best clinical judgment today based on the combination of historical information, prior notes, and today's exam/ interactions. When time spent is documented, it refers only to time spent today by the signer, or if indicated, combined time spent today by collaborating physician/nurse practitioner. Glo Morgan Jan 22, 2018 10:28
[2018-01-22] MEDS: FLUCONAZOLE 100 MG PREMIX BAG 50 ML IV SCH (13:23)
[2018-01-22] MEDS ORDERED: HYOSCYAMINE 0.5 MG/ML AMP IV PUSH ONE (16:30)
[2018-01-22] MEDS ORDERED: LORazepam 2 MG/ML VIAL IV PUSH ONE ×2 (16:30→16:45)
[2018-01-22] MEDS ORDERED: HYOSCYAMINE 0.5 MG/ML AMP IV PUSH PRN (17:00)
[2018-01-22] MEDS ORDERED: HYDROmorphone HCL PF 2 MG/ML VIAL IV PUSH PRN ×2 (17:00)
--- NOTE | 2018-01-22 18:09 | DEATH SUM ---
Summary Demographics Date Pronounced : Jan 22, 2018 Time Of : 17:57 Pronounced By: Ana Chavez M.D. Preliminary Cause of : Multi Organ Failure Uri Chavez MD Jan 22, 2018 18:09
--- NOTE | 2018-01-22 18:13 | HHI.DS ---
Discharge Summary Admission Date December 27, 2017 at 22:24 Discharge Date: Jan 22, 2018 Admitting Diagnosis liver failure overanticoagulation , hyponatremia (1) Upper GI bleed ICD Code: K92.2 - Gastrointestinal hemorrhage, unspecified Diagnosis: Principal (2) Acute hypoxemic respiratory failure ICD Code: J96.01 - Acute respiratory failure with hypoxia (3) Anemia requiring transfusions ICD Code: D64.9 - Anemia, unspecified Diagnosis: Principal (4) Coagulopathy ICD Code: D68.9 - Coagulation defect, unspecified Diagnosis: Principal (5) Probable sepsis ICD Code: R68.89 - Other general symptoms and signs Diagnosis: Principal (6) Hyponatremia ICD Code: E87.1 - Hypo-osmolality and hyponatremia Diagnosis: Principal (7) Ascites ICD Code: R18.8 - Other ascites Diagnosis: Principal (8) Possible SBP Diagnosis: Principal (9) Hyperbilirubinemia ICD Code: E80.6 - Other disorders of bilirubin metabolism Diagnosis: Principal (10) Transaminitis ICD Code: R74.0 - Nonspecific elevation of levels of transaminase and lactic acid dehydrogenase [LDH] Diagnosis: Principal (11) Alcohol intoxication ICD Code: F10.929 - Alcohol use, unspecified with intoxication, unspecified Diagnosis: Principal (12) Early alcohol withdrawal Diagnosis: Principal (13) Alcoholic cirrhosis ICD Code: K70.30 - Alcoholic cirrhosis of liver without ascites Diagnosis: Secondary (14) Splenomegaly ICD Code: R16.1 - Splenomegaly, not elsewhere classified Diagnosis: Secondary Procedures Paracentesis EGD Brief History Patient is a 52-year-old male with history of alcohol dependence, on chronic Coumadin for "abdominal vein thrombosis", history of hypertension who presented to the emergency department with complaints of increasing jaundice, increasing abdominal girth and vomiting jade blood multiple times over the last 2 days. Patient admits to being a heavy drinker he drinks about 1.75 L bottle hard liquor every 2 days. ER workup showed patient had a hemoglobin of 8.1, INR was 15.7. PTT 156.1, white count of 13.6 with 10% bands. Also sodium was noted to be 119, AST 439 ALT 115 and bilirubin of 7.6. A stat CT abdomen pelvis showed moderate ascites, probable cirrhosis and hepatic steatosis, splenomegaly, and gallstones. Patient had been ordered to receive 2 units of PRBC, and total 4 units of FFP. INR, Hb will be rechecked after this and additional FFP will be given accordingly. 10 mg vitamin K also ordered. Unfortunately hospital is out of [facility]. I evaluated the patient in the emergency department. He initially had an alcohol level of 135. At the time of my exam he is in moderate distress appears to be slightly tremulous. I have initiated CIWA protocol. I will also start its Rocephin for SBP prophylaxis. Patient had been started on IV Protonix infusion and octreotide which will be continued. Patient clinically also appears to have at least moderate ascites but I am unable to perform paracentesis due to elevated INR. CBC/BMP: 01/22/18 0500 01/22/18 0500 Significant Findings Laboratory Tests Test 01/20/18 05:00 01/21/18 05:45 01/22/18 05:00 White Blood Count 17.4 TH/MM3 (4.0-11.0) 19.7 TH/MM3 (4.0-11.0) 23.4 TH/MM3 (4.0-11.0) Red Blood Count 2.87 MIL/MM3 (4.50-5.90) 3.02 MIL/MM3 (4.50-5.90) 2.77 MIL/MM3 (4.50-5.90) Hemoglobin 8.8 GM/DL (13.0-17.0) 9.2 GM/DL (13.0-17.0) 8.6 GM/DL (13.0-17.0) Hematocrit 27.3 % (39.0-51.0) 28.5 % (39.0-51.0) 26.6 % (39.0-51.0) Red Cell Distribution Width 26.5 % (11.6-17.2) 26.9 % (11.6-17.2) 27.1 % (11.6-17.2) Prothrombin Time 14.4 SEC (9.8-11.6) 13.9 SEC (9.8-11.6) Activated Partial Thromboplast Time 31.3 SEC (24.3-30.1) 33.4 SEC (24.3-30.1) Blood Urea Nitrogen 75 MG/DL (7-18) 88 MG/DL (7-18) 106 MG/DL (7-18) Creatinine 3.50 MG/DL (0.60-1.30) 4.25 MG/DL (0.60-1.30) 5.20 MG/DL (0.60-1.30) Random Glucose 118 MG/DL (74-106) 152 MG/DL (74-106) 128 MG/DL (74-106) Albumin 2.2 GM/DL (3.4-5.0) 2.2 GM/DL (3.4-5.0) Aspartate Amino Transf (AST/SGOT) 167 U/L (15-37) 188 U/L (15-37) Alanine Aminotransferase (ALT/SGPT) 79 U/L (12-78) 87 U/L (12-78) Total Bilirubin 19.2 MG/DL (0.2-1.0) 19.6 MG/DL (0.2-1.0) Sodium Level 149 MEQ/L (136-145) Chloride Level 114 MEQ/L (98-107) 109 MEQ/L (98-107) Estimat Glomerular Filtration Rate 19 ML/MIN (>89) 15 ML/MIN (>89) 12 ML/MIN (>89) Phosphorus Level 5.1 MG/DL (2.5-4.9) Magnesium Level 3.0 MG/DL (1.5-2.5) Alkaline Phosphatase 138 U/L (45-117) Carbon Dioxide Level 18.6 MEQ/L (21.0-32.0) 16.2 MEQ/L (21.0-32.0) Ammonia 42 MCMOL/L (11-32) Anion Gap 17 MEQ/L (5-15) Imaging CXR PE at Discharge . Transfer Summary DP for healthcare (and mother) requested withdrawal of all artificial support today. Exhibits B & C completed and patient was extubated. Pronounced at 1757 hours of cardiac standstill from endstage liver failure and multiple organ dysfunction. Hospital Course Patient is a 52-year-old male with history of alcohol dependence, on chronic Coumadin for "abdominal vein thrombosis", history of hypertension who presented to the emergency department with complaints of increasing jaundice, increasing abdominal girth and vomiting jade blood multiple times over the last 2 days. Patient admits to being a heavy drinker he drinks about 1.75 L bottle hard liquor every 2 days. ER workup showed patient had a hemoglobin of 8.1, INR was 15.7. PTT 156.1, white count of 13.6 with 10% bands. Also sodium was noted to be 119, AST 439 ALT 115 and bilirubin of 7.6. A stat CT abdomen pelvis showed moderate ascites, probable cirrhosis and hepatic steatosis, splenomegaly, and gallstones. Patient had been ordered to receive 2 units of PRBC, and total 4 units of FFP. INR, Hb will be rechecked after this and additional FFP will be given accordingly. 10 mg vitamin K also ordered. Unfortunately hospital is out of [facility]. I evaluated the patient in the emergency department. He initially had an alcohol level of 135. At the time of my exam he is in moderate distress appears to be slightly tremulous. I have initiated CIWA protocol. I will also start its Rocephin for SBP prophylaxis. Patient had been started on IV Protonix infusion and octreotide which will be continued. Patient clinically also appears to have at least moderate ascites but I am unable to perform paracentesis due to elevated INR. 12/28: Currently resting in bed complaining of abdominal pain. Short of breath and tachypnea. Complaining of nausea currently. Remains on nasal cannula. Patient does not desire his mother's to have knowledge about his alcohol use. 12/29: Afebrile. Remains intubated post EGD yesterday due to worsening hypoxia. Currently on PSV trial 26/05 at 40%. Remains on dexmedetomidine drip and attempt to wean with alcohol use and likely progression to DTs. Banding of varices noted. Pentoxifylline 400 mg every 8 hours initiated with appropriate 12/30: Awake on dexmedetomidine drip at 1 mcg/kg/min. Following commands and attempting to write. Nods his head when states he feels the effects of alcohol withdrawals. Afebrile. Continues to leak from prior site of paracentesis. 12/31: Diminished urine output noted overnight. Increasing FiO2 requirement. Bladder pressures measured currently elevated around 25. Will place tube to suction and notify GI. Nephrology consult placed. Will need central line. 01/01: T-max 100. Currently 99. Meld score 34. Discriminant function is 34. Tamera alcohol scale score 7. Arousable the ventilator. FiO2 increased to 40- 60% overnight. 350 cc from NG tube overnight. 01/02: T-max 99.8. No bowel movement overnight. Abdomen remains distended. More ascites output from left lower quadrant previous paracentesis site. Arousable on the ventilator and follows commands on sedation vacation. Remains on PEEP of 12. FiO2 60%. 01/03: Patient remains intubated sedated very critical. FiO2 had to be increased to 70%. I have increase PEEP from 12-14. Chest x-ray remains unchanged. T-max 100.5. Urine output 1.3 L. BUN 42 creatinine 3.5 hemoglobin 7.4. Bedside ultrasound shows at least moderate ascites. Plan for thoracentesis for fluid removal and also will help with vent dynamic. 01/04: Persistent problems with oxygenation related to diffuse basilar atelectasis. Patient converted to airway pressure release ventilation this morning. Caloric intake probably on the high side in view of propofol infusion. Will reduce TPN to 60 cc/h. Enteral feedings at trickle rate. 01/05: Patient placed on APRV mode 01/04 with T-hi 5 sec Pres hi 30, with release volumes around 800 cc. Good oxygen saturation 30% FiO2. X-ray shows improvement in bilateral consolidation persistent left lower lobe infiltrate. Urine output 1.5 L also 1.5 L out from left paracentesis site. Transfuse 1 U PRBC 01/06: Remains critically ill but making some progress. Reduce PHigh to 26, T high to 4.5, if tolerated well, attempt to switch to PC/AC with PEEP 18-20 and rita iTime. Urine output adequate 2.3 L in 24 hours. Paracentesis site draining approximately 1.4 L despite paracentesis and removal of 3.5 L yesterday. Increase Lasix to 60 mg IV q6hr, Creat improved to 3.29 01/07: Oxygenation modestly improved with very aggressive mean airway pressures , continue PEEP 1820. Abdominal girth and ascites have conspired to reduce functional residual capacity. Now a permanent peritoneal drain is in place and we will attempt to make some progress with gas exchange. Between the intractable ascites, morbid obesity, and respiratory failure it will be very difficult to remove this patient from positive pressure ventilation. 01/08: ET tube has migrated above the vocal cords. Directly visualized with glide scope after receiving 40 mg etomidate. Cuff was deflated several times and advanced with adequate tidal volumes post advancement. Follow-up chest x- ray revealed adequate placement of ET tube. Remains on furosemide will change to drip today. 01/09: Afebrile. FiO2 down to 65%. Continues with profuse drainage from pigtail site. Not tolerating tube feeds. Hemoglobin 6.4 units PRBCs. Will transfuse 1 unit today. 01/10: FiO2 down to 40%. PEEP decreased to 12. Arousable on propofol and fentanyl drips and able to follow commands. Transfuse 1 additional unit PRBCs overnight hemoglobin currently 8.4. 01/11: T-max 99. PEEP decreased to 10. Continue to be aroused on propofol and fentanyl drips and follows commands. Hemoglobin stable 01/12: PEEP decreased from 10 - 8. Remains arousable on propofol and fentanyl drips and follows commands. Hemoglobin stable. A.m. labs from [facility] currently pending. 01/13: Afebrile. Currently awake and alert on the ventilator. Attempting CPAP trial 05/16 at 35%. No new issues overnight. 01/14: no improvements. awake on the ventilator. CAM-. capacitated. very weak. wbc continues to rise. MELD 29. overall very poor prognosis. had a discussion with the patient. he is too weak to write things down, but he can nod yes or no and give thumbs up/down. passed complete CAM-ICU assessment and not delirious. RASS 0 and oriented to person and place. difficult to assess time orientation. I explained his hospital course, along with all of the organ systems that were failing, and he nodded to express understanding. I told him that his ex- was legally still to him and legally his medical decision maker and she had been making healthcare decisions for him, and he expressed quite clearly that he did not want her to make decisions on his behalf. Palliative care was at bedside and confirmed this assessment. It is my assessment that the patient has full capacity to make decisions and to designate or un-designate healthcare surrogates. 01/15: T-max 99.9/also Tcurrent. Tolerated CPAP trial 12 hours yesterday however failed weaning parameters with high RSBI. Tube feeds have not been initiated. Positive BM 1. Continues with very slow drainage from prior pigtail catheter placed for abdominal ascites. Currently denying pain 01/16: back down to admission weight. all labs continue to worsen. MELD 31. remains febrile with elevated wbc. cultures NGTD. 01/17: no meaningful improvements. sodium rising. renal function essentially unchanged. LFTs still very elevated. cultures ngtd. wbc remains high despite empiric abx therapy. still febrile. 01/18: no changes. Cr 2.5 from 2.6. TBili remains over 20. febrile and wbc up to 20k despite addition of fungal coverage. no culture has grown anything. overall , very poor prognosis. mother continues to press on for aggressive care. 01/19: no improvements. Cr up to 2.7. TBili 21. still spiking fevers. mother continues to press for aggressive care, although we do not have much more to offer. Subjective 01/20: Creatinine up to 3.5. Total bilirubin around 20. Intermittent afebrile. Not a candidate for extubation. Currently on propofol at 30 mg/kg/min. 01/21: 650 mls urine overnight but renal failure persists. Volume is not the problem. Tolerating enteral feeds, taper TPN. Update 1600 hours. Patient's mother who is now his power of lokie engineer for healthcare has decided to withdraw artificial support. She expresses a full understanding that this is not a survivable disease process. She wants to be assured that he will not experience discomfort when we extubate. She is adamant that he receive sedation and analgesia because he appears to struggle on the ventilator and will struggle more when extubated. 01/22: Continued deterioration in renal, hepatic, and hematologic function. Pain relief is improved. Pt Condition on Discharge: Deteriorating Uri Chavez MD Jan 22, 2018 18:13
[2018-01-22] MEDS ORDERED: LORazepam 2 MG/ML VIAL IV PUSH SCH (20:00)
== END 2018-01-22 19:30 | disposition expired | DRG 870 ==
LOC: NEPE 16:57 → NEDA 22:24 → N03A 12-28 00:16
PROVIDERS: ADMIT Internal Medicine; ATTEND Internal Medicine
PROC: 30233K1 Transfusion of Nonautologous Frozen Plasma into Peripheral Vein, Percutaneous Approach (ICD-10-PCS; principal; 2017-12-27)
PROC: 30233N1 Transfusion of Nonautologous Red Blood Cells into Peripheral Vein, Percutaneous Approach (ICD-10-PCS; 2017-12-27)
PROC: 5A1955Z Respiratory Ventilation, Greater than 96 Consecutive Hours (ICD-10-PCS; 2017-12-28)
PROC: 0W9G3ZZ Drainage of Peritoneal Cavity, Percutaneous Approach (ICD-10-PCS; 2017-12-28)
PROC: 06L38CZ Occlusion of Esophageal Vein with Extraluminal Device, Via Natural or Artificial Opening Endoscopic (ICD-10-PCS; 2017-12-28)
PROC: 0DJ08ZZ Inspection of Upper Intestinal Tract, Via Natural or Artificial Opening Endoscopic (ICD-10-PCS; 2017-12-28)
PROC: 0DH67UZ Insertion of Feeding Device into Stomach, Via Natural or Artificial Opening (ICD-10-PCS; 2017-12-30)
PROC: 05HN33Z Insertion of Infusion Device into Left Internal Jugular Vein, Percutaneous Approach (ICD-10-PCS; 2017-12-31)
PROC: 0DJD8ZZ Inspection of Lower Intestinal Tract, Via Natural or Artificial Opening Endoscopic (ICD-10-PCS; 2018-01-02)
PROC: 0D9E80Z Drainage of Large Intestine with Drainage Device, Via Natural or Artificial Opening Endoscopic (ICD-10-PCS; 2018-01-02)
PROC: 0W9G3ZX Drainage of Peritoneal Cavity, Percutaneous Approach, Diagnostic (ICD-10-PCS; 2018-01-05)
DX: A41.9 Sepsis, unspecified organism (principal); J96.01 Acute respiratory failure with hypoxia; K76.7 Hepatorenal syndrome; I85.11 Secondary esophageal varices with bleeding; J81.1 Chronic pulmonary edema; N17.9 Acute kidney failure, unspecified; F10.231 Alcohol dependence with withdrawal delirium; K76.6 Portal hypertension; D68.9 Coagulation defect, unspecified; E87.1 Hypo-osmolality and hyponatremia; Z68.42 Body mass index [BMI] 45.0-49.9, adult; D62 Acute posthemorrhagic anemia; K56.0 Paralytic ileus; E44.0 Moderate protein-calorie malnutrition; J98.11 Atelectasis; E87.0 Hyperosmolality and hypernatremia; E66.2 Morbid (severe) obesity with alveolar hypoventilation; K70.31 Alcoholic cirrhosis of liver with ascites; R65.20 Severe sepsis without septic shock; E87.8 Other disorders of electrolyte and fluid balance, not elsewhere classified; R16.1 Splenomegaly, not elsewhere classified; K70.11 Alcoholic hepatitis with ascites; Z23 Encounter for immunization; K72.90 Hepatic failure, unspecified without coma; Z79.01 Long term (current) use of anticoagulants; I10 Essential (primary) hypertension; Y90.6 Blood alcohol level of 120-199 mg/100 ml; K80.20 Calculus of gallbladder without cholecystitis without obstruction; D64.89 Other specified anemias; T45.515A Adverse effect of anticoagulants, initial encounter; Z86.718 Personal history of other venous thrombosis and embolism; Z66 Do not resuscitate; Z51.5 Encounter for palliative care; K57.30 Diverticulosis of large intestine without perforation or abscess without bleeding; K44.9 Diaphragmatic hernia without obstruction or gangrene; E87.70 Fluid overload, unspecified; D56.9 Thalassemia, unspecified; E83.51 Hypocalcemia; L98.9 Disorder of the skin and subcutaneous tissue, unspecified; K31.89 Other diseases of stomach and duodenum; E87.6 Hypokalemia; G47.33 Obstructive sleep apnea (adult) (pediatric); E80.7 Disorder of bilirubin metabolism, unspecified; D69.6 Thrombocytopenia, unspecified
CPT/HCPCS: 36430; 36600; 49082; 71045; 71275; 74018; 74174; 74177; 76705; 76937; 80048; 80053; 80061; 80074; 80307; 81001; 82042; 82140; 82150; 82248; 82533; 82550; 82570; 82805; 82945; 82948; 83605; 83615; 83690; 83735; 83930; 83935; 84100; 84132; 84155; 84157; 84295; 84300; 84443; 84550; 85007; 85014; 85018; 85025; 85027; 85384; 85610; 85730; 86403; 86850; 86900; 86901; 86920; 86927; 86965; 87040; 87070; 87077; 87086; 87186; 87205; 87641; 88112; 89051; 90686; 90732; 93306; 94002; 94003; 94640; 94664; 96361; 96374; 96375; C9113; J0131; J0171; J0330; J0461; J0610; J0696; J0780; J1170; J1205; J1450; J1815; J1940; J1980; J2020; J2060; J2212; J2250; J2270; J2354; J2370; J2543; J2765; J3010; J3411; J3430; J3480; J7030; J7040; J7050; J7060; J7120; J7613; P9016; P9017; P9045; P9047; Q2038; Q9967